=== PATIENT | female | born 1990 | race Caucasian/White ===

== ENCOUNTER 2023-08-02 16:34 | Emergency (ER) | payer OTHER, SELFPAY ==
[2023-08-02 16:52] VITALS: BP 148/114; PULSE 58; RESP 18; TEMP 37.1; O2SAT 99; BMI 24.3
--- NOTE | 2023-08-02 16:56 | ED.GENADUL1 ---
HPI - General Adult General Chief complaint: Headache Stated complaint: Low Heart Rate - advised to call 911 Time Seen by Provider: 08/02/23 16:52 Source: patient Mode of arrival: Wheelchair Limitations: no limitations History of Present Illness HPI narrative: 33 janet old female presents to the ED for a headache, neck spasms. Onset was this morning. States the sx are typical for her, but her home medication was not helping. Also states her HR dropped into the 30s today and her BP was elevated. Reports dizziness, palpitations today. Denies fever, chills, vision changes. Denies CP, SOB, N/V/D, back pain. She drove herself to the ED today. Denies chance of . Reports hx syncope. She follows with cardiology. Related Data Allergies Allergy/AdvReac Type Severity Reaction Status Date / Time metoclopramide [From Reglan] AdvReac Severe Anxiety Verified 08/02/23 16:52 Review of Systems ROS Constitutional Denies: fever, chills or fatigue Eyes Reports: light sensitivity; Denies: change in vision, blurry vision or eye discomfort Ears, nose, mouth, and throat Reports: neck pain; Denies: throat pain, ear pain, ear discharge, vertigo or nasal congestion Cardiovascular Reports: palpitations and lightheadedness; Denies: chest pain or edema Respiratory Denies: shortness of breath or cough Gastrointestinal Denies: abdominal pain, nausea, vomiting or diarrhea Genitourinary Denies: painful urination Musculoskeletal Reports: neck pain; Denies: back pain Integumentary/Breast Denies: rash or itching Neurological Reports: headache and dizziness; Denies: numbness in extremities, weakness in extremities, lack of coordination or vertigo PFSH PFSH Social History Smoking status: Current every day smoker Exam Constitutional Vital Signs, click to edit/add: Last Vital Signs Temp 98.7 F 08/02/23 16:52 Pulse 58 L 08/02/23 16:52 Resp 18 08/02/23 16:52 BP 148/114 H 08/02/23 16:52 Pulse Ox 99 08/02/23 16:52 O2 Del Method Room Air 08/02/23 16:52 Common normals: no apparent distress and oriented x3 General appearance: cooperative HENMT Common normals: normocephalic Nose: external nose normal Mouth: oral and palatal mucosa normal, lip normal and tongue normal Throat: posterior oropharynx normal and uvula midline Eye Common normals: PERRL, EOMs intact bilaterally, conjunctivae normal and no scleral icterus Neck & C-Spine Common normals: supple General: trachea midline Cervical spine: cervical ROM normal, paracervical muscle tenderness and paracervical muscle spasm; no cervical spine tenderness Chest Chest: symmetrical chest wall rise Respiratory Common normals: normal respiratory effort Effort & inspection: able to speak in complete sentences and symmetric chest movement Auscultation: clear to auscultation bilaterally Cardio Common normals: regular rhythm Rate: bradycardic Neuro Common normals: oriented x3 and CN's II-XII intact bilaterally Sensorium/orientation: awake and alert Speech: speech normal Gait (neuro): normal gait Motor exam: strength 5/5 throughout Course Vital Signs Vital signs: Vital Signs Temperature 98.7 F 08/02/23 16:52 Pulse Rate 58 L 08/02/23 16:52 Respiratory Rate 18 08/02/23 16:52 Blood Pressure 148/114 H 08/02/23 16:52 Pulse Oximetry 99 08/02/23 16:52 Oxygen Delivery Method Room Air 08/02/23 16:52 Temperature 98.7 F 08/02/23 16:52 Pulse Rate 58 L 08/02/23 16:52 Respiratory Rate 18 08/02/23 16:52 Blood Pressure 148/114 H 08/02/23 16:52 Pulse Oximetry 99 08/02/23 16:52 Oxygen Delivery Method Room Air 08/02/23 16:52 Medical Decision Making MDM Narrative Medical decision making narrative: The patient reported improvement in her symptoms prior to discharge. She reported her headache was gone. She was given IV fluids, Benadryl, Decadron, and Zofran. BP prior to discharge was 129/70, HR 55, O2 sat 100%. She has an appointment in the morning for a cardiac echo. She has a pcp and senior pharmacy technician for follow up. She was encouraged to follow up as directed. Medical Records Medical records reviewed: Yes I reviewed the patient's medical records Lab Data Lab results reviewed: Yes I reviewed the patient's lab results Labs: Lab Results 08/02/23 Range/Units 17:35 WBC 7.7 (4.0-11.0) 10^3/uL RBC 5.15 (4.20-5.40) 10^6/uL Hgb 14.9 (12.0-16.0) g/dL Hct 46.0 (36.0-48.0) % MCV 89.3 (81.0-99.0) fL MCH 28.9 (26.7-34.0) pg MCHC 32.4 (29.9-35.2) g/dL RDW 12.7 (11.0-15.0) % Plt Count 330 (150-450) 10^3/uL MPV 11.0 (9.5-13.5) fL Neut % (Auto) 62.8 (43.0-75.0) % Lymph % (Auto) 30.9 (20.5-60.0) % [place] % (Auto) 3.8 (1.7-12.0) % Eos % (Auto) 2.0 (0.9-7.0) % Baso % (Auto) 0.4 (0.2-2.0) % Neut # (Auto) 4.8 (1.4-6.5) 10^3/uL Lymph # (Auto) 2.4 (1.2-3.8) 10^3/uL [place] # (Auto) 0.3 (0.3-0.8) 10^3/uL Eos # (Auto) 0.2 (0.0-0.7) 10^3/uL Baso # (Auto) 0.0 (0.0-0.1) 10^3/uL Abs Immat Gran (auto) 0.01 (0.00-0.03) 10^3/uL Imm/Tot Granulo (auto) 0.1 (0.0-0.5) % Sodium 143 (136-145) mmol/L Potassium 3.8 (3.5-5.1) mmol/L Chloride 106 (98-107) mmol/L Carbon Dioxide 28.7 (21.0-32.0) mmol/L Anion Gap 12.1 BUN 10.0 (7.0-18.0) mg/dL Creatinine 0.78 (0.55-1.02) mg/dL Est GFR ( Amer) >60 (>=60) Est GFR (Non-Af Amer) >60 (>=60) BUN/Creatinine Ratio 12.8 Glucose 101 (74-106) mg/dL Calcium 9.6 (8.5-10.1) mg/dL Total Bilirubin 0.7 (0.2-1.0) mg/dL AST 12 L (15-37) U/L ALT 16 (14-59) U/L Alkaline Phosphatase 85 (46-116) U/L Total Creatine Kinase 45 (26-192) U/L Myoglobin 36 (9-82) ng/mL Total Protein 8.0 (6.4-8.2) g/dL Albumin 4.0 (3.4-5.0) g/dL Globulin 4.0 g/dL Albumin/Globulin Ratio 1.0 Imaging Data Chest x-ray: Attestation: I have reviewed the pertinent imaging results. Radiologist's impression: ITS Impressions Chest X-Ray 08/02/23 17:06 IMPRESSION: No plain film evidence for acute cardiopulmonary disease. Electronically authenticated by: RENEE GIL Date: 08/02/2023 17:44 ECG Data Attestation: ?I have reviewed the pertinent ECG results. Interpretation: Measurements Intervals [place] Rate: 52 P: 60 TX: 148 QRS: 67 QRSD: 86 T: 40 QT: 416 QTc: 396 Interpretive Statements 1100 Sinus rhythm 9110 normal ECG No previous ECG available for comparison Discharge Plan Discharge Chief Complaint: Headache Clinical Impression: Bradycardia, Headache Patient Disposition: Home, Self-Care Time of Disposition Decision: 20:18 Condition: Good Mode of Transportation: Private Vehicle Instructions: Acute Headache (ED), Bradycardia (ED) Stand Alone Forms: Portal Instructions Referrals: KAREN VILLRA [Physician] - 1 week Physician,Non-Staff, [Primary Care Provider] - 1 week Discharge Date/Time: 08/02/23 20:23
--- NOTE | 2023-08-02 17:06 | ECG_ITS ---
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
--- NOTE | 2023-08-02 17:06 | XR_ITS ---
The [address] [address] Patient Name: SABRINA ELIZABETH MRN: [id number] date: 1990 Sex: F Assigned Patient Location: ER Current Patient Location: ER Accession/Order Number: [id number] Exam Date: 08/02/2023 17:12 Report Date: 08/02/2023 17:44 At the request of: KENIA WILLS Procedure: XR chest 1V CXR HISTORY: Shortness of breath COMPARISON: None. TECHNIQUE: 1 view chest submitted for review. FINDINGS: The lungs are adequately expanded without evidence of acute infiltrate or effusion. The cardiac silhouette measures within normal. Pulmonary vascularity is unremarkable. Osseous structures do not demonstrate any acute abnormality. XR/XR chest 1V IMPRESSION: No plain film evidence for acute cardiopulmonary disease. Electronically authenticated by: RENEE GIL Date: 08/02/2023 17:44
[2023-08-02 17:44] LABS: Basophils Percent Auto 0.4 % (0.2-2.0); Eosinophils Absolute Auto 0.2 10^3/uL (0.0-0.7); Hemoglobin 14.9 g/dL (12.0-16.0); Immature Granulocytes Abs Auto 0.01 10^3/uL (0.00-0.03); Immature Granulocytes Pct Auto 0.1 % (0.0-0.5); Lymphocytes Absolute Auto 2.4 10^3/uL (1.2-3.8); Lymphocytes Percent Auto 30.9 % (20.5-60.0); Mean Corpuscular HGB Conc 32.4 g/dL (29.9-35.2); Mean Corpuscular Hemoglobin 28.9 pg (26.7-34.0); Mean Corpuscular Volume 89.3 fL (81.0-99.0); Monocytes Absolute Auto 0.3 10^3/uL (0.3-0.8); Monocytes Percent Auto 3.8 % (1.7-12.0); Neutrophils Absolute Auto 4.8 10^3/uL (1.4-6.5); Neutrophils Percent Auto 62.8 % (43.0-75.0); Platelet Count 330 10^3/uL (150-450); Red Blood Count 5.15 10^6/uL (4.20-5.40); Red Cell Distribution Width 12.7 % (11.0-15.0); White Blood Count 7.7 10^3/uL (4.0-11.0)
[2023-08-02 17:59] LABS: Alanine Aminotransferase 16 U/L (14-59); Alkaline Phosphatase 85 U/L (46-116); Anion Gap 12.1; Aspartate Amino Transferase 12 U/L (15-37); BUN Creatinine Ratio 12.8; Bilirubin Total 0.7 mg/dL (0.2-1.0); Calcium 9.6 mg/dL (8.5-10.1); Carbon Dioxide 28.7 mmol/L (21.0-32.0); Chloride 106 mmol/L (98-107); Estimated GFR (African America >60 (>=60); Estimated GFR (Non-African Ame >60 (>=60); Glucose 101 mg/dL (74-106); Potassium 3.8 mmol/L (3.5-5.1); Sodium 143 mmol/L (136-145)
[2023-08-02 18:11] LABS: Creatine Kinase 45 U/L (26-192); Myoglobin 36 ng/mL (9-82)
[2023-08-02] MEDS: 0.9 % SODIUM CHLORIDE 1,000 ML 999 ML IV (18:48)
[2023-08-02] MEDS: ONDANSETRON PF 4 MG/2 ML VIAL IV (18:49)
[2023-08-02] MEDS: DIPHENHYDRAMINE HCL 50 MG/ML (1ML) VIAL 25 MG IV (18:49)
[2023-08-02] MEDS: DEXAMETHASONE SOD PHOS 10 MG/ML VIAL IV (18:49)
[2023-08-02] MEDS: ORPHENADRINE 60 MG/ 2 ML VIAL IV (18:50)
== END 2023-08-02 20:23 | disposition home or self-care (01) ==
PROVIDERS: Nurse Practitioner Family; Emergency Provider Emergency Medicine
DX: R00.1 Bradycardia, unspecified (principal); R51.9 Headache, unspecified; F17.200 Nicotine dependence, unspecified, uncomplicated
CPT/HCPCS: 36415; 71045; 80053; 82550; 83874; 85025; 93005; 96361; 96374; 96375; 99285; J1100; J1200; J2360; J2405

== ENCOUNTER 2023-12-12 19:42 | Emergency (ER) | payer OTHER, SELFPAY ==
[2023-12-12 19:47] VITALS: BP 136/105; PULSE 85; TEMP 37.2; O2SAT 98; BMI 25.1
--- OUTSIDE RECORDS SUMMARY | 2023-12-12 19:56 | XMS_ITS | CCD ---
Author Organization [facility] Care Team Providers Care Chip Bin Conveyor Tender Name Role Phone PRISCILA XIE Admitting Unavailab le SYSTEM, PROVIDER NOT IN Referring Unavaila WOODY Benitez Primary Care Unavailabl e Horava, Harish A. Primary Care Provider [phone] Unavailable Primary Care Provider Unavailabl e Horava DO, Harish A. Primary Care Provider Unavailable Primary Care Provider Unavailabl e Horava DO, Harish A. Primary Care Provider Horava DO, Harish A. Primary Care Provider Unavailable Primary Care Provider Unavailabl e Horava DO, Harish A. Primary Care Provider Alex PSA, Yuridia Unavailable Unavailable Unavailable Primary Care Provider Unavailabl e Unavailable Primary Care Provider UnavailAlessandra Espinosa DO Primary Care Pro vider Horava, Harish A Unavailable Alessandra Romero DO Primary Care Provider DL PONCE Attending Unavailable DL PONCE Referring Unavailable ALESSANDRA ROMERO??Jesica Primary Care Unavaila Mark Osorio Primary Care Provider MARK POE Primary Care Unavailable MARK POE Primary Care Unavailable MARK POE Primary Care Unavailable KASHMIR BELTRAN JR. Attending Unavailable ELSI LUCAS Referring Unavailable ALESSANDRA ROMERO Primary Care Kimberly vailable CISCO GARCIA Attending Unavailable MARK POE Referring Unavailable ALESSANDRA ROMERO Primary Care Kimberly vailable SOPHIE YOUNGER Attending Unavailable Kavita Gama Primary Care Provider REJI BAKER Attending Unavailable POE, MARK Primary Care Unavailable POE, MARK Referring Unavailable POE, MARK Primary Care Unavailable POE, MARK Attending Unavailable CRUZ-AGUILAR, TEX Attending Unavailable CRUZ-AGUILAR, TEX Referring Unavailable POE, MARK Primary Care Unavailable CRUZ-AGUILAR, TEX Attending Unavailable CRUZ-AGUILAR, TEX Referring Unavailable POE, MARK Primary Care Unavailable CRUZ-AGUILAR, TEX Attending Unavailable CRUZ-AGUILAR, TEX Referring Unavailable POE, MARK Primary Care Unavailable LanetteKavita salomon APRN, CNP Primary Care Provid er HORAVA, HARISH A. Primary Care Unavailable PRISCILA CARRANZA Attending Unavailable HORAVA, HARISH A. Primary Care Unavailable HORAVA, HARISH A. Primary Care Unavailable OSMANHUMBLEA MARINA Attending Un available OSMAN, NOLBERTO BOLLAMPALLY Referring Un available HORAVA, HARISH A. Primary Care Unavailable NILESH LYNN Attending Unavaila ble HORAVA, HARISH A. Primary Care Unavailable XUAN CUADRA Attending Unavailab IRENE Ivy Admitting Unavailab JEISON Manning Consulting Unavailabl e HORAVA, HARISH A. Referring Unavailable HORAVA, HARISH A. Primary Care Unavailable ADELA ASENCIO Attending Unavail able HORAVA, HARISH A. Primary Care Unavailable KRISTINE GALAN Attending Unavailabl e HORAVA, HARISH A. Primary Care Unavailable HUMBLE PEREZA MARINA Attending Un available OSMAN, NOLBERTO BOLLAMPALLY Referring Un available Lanette Kavita RAMIREZ CNP Primary Care Provid er Shira Preciado PA-C Attending Unavai lable LanetteKavita العراقي Referring Unava lynnette Bazan MD, Jameson Edwards Attending Unavailable NO, PHYSICIAN Primary Care Unavailable RAMESH CORTEZ Attending Unavailable RAMESH CORTEZ Referring Unavailable Horava DO, Harish A Unavailable Kavita Carpenter APRN, CNP Primary Care Provid er Kavita Gama APRN.CNP Primary Care Provider Jya Phillips MD Unavailable NO, PHYSICIAN Primary Care Unavailable HARISH GARZA Attending Unavailable [facility] Primary Care Kimberly vailable HARISH GARZA Attending Unavailable MEET BAIRES Attending Un[facility] Kimberly vailable HARISH GARZA Attending Unavailable [facility] Primary Care Kimberly vailable MARK POE Attending Unavailable [facility] Primary Care Kimberly vailable SHAYY, ELSI ABDUL Attending Unavailable SHAYY, ELSI ABDUL Attending Unavailable [facility] Primary Care Kimberly vailable SHAYY, ELSI ABDUL Attending Unavailable [facility] Primary Care Kimberly vailable Krizman DO, Noa Primary Care Provider [phone] Phu BEAUCHAMP, Bruno Unavailable Unavailable DAMIEN LANDON Attending Unavailable LANETTE, KAVITA Nikki Primary Care Unavailable SAROJ THORNTON Admitting Unavailable MOISES, MAIDANA Attending Unavailable NOA GAUTHIER Primary Care Unavailable Phu BEAUCHAMP, Bruno Unavailable Unavailable Krizvincent CHAMBERLAIN Noa Primary Care Provider JAJA TRUONG Attending UnavailJAJA Ovalles Referring Unavailabl e LANETTE, KAVITA L Primary Care Unavailable QUINTON MCKEON Referring Unavailable MOHINDER GARCIA Referring Unavailable LANETTE, KAVITA L Primary Care Unavailable KRISTINA JACOBS Referring Unavailable LANETTE, KAVITA L Primary Care Unavailable JAJA TRUONG Attending UnavailJAJA Ovalles Referring Unavailabl e LANETTE, KAVITA L Primary Care Unavailable JAUN OSORIO, MICHELLE F Admitting Unavail able JAUN OSORIO, MICHELLE F Attending Unavail able JAUN OSORIO, MICHELLE F Referring Unavail able LANETTE, KAVITA L Primary Care Unavailable MILLIE MACK Referring Unavailable LANETTE, KAVITA L Primary Care Unavailable LANETTE, KAVITA L Primary Care Unavailable RUBIN VERDE Referring Unavailable LANETTE, KAVITA L Primary Care Unavailable RUBIN VERDE Attending Unavailable FAROOQ MCGRAW Referring Unavailable NOA GAUTHIER Primary Care Unavailable LANETTE, KAVITA L Primary Care Unavailable RUBIN VERDE Attending Unavailable NOA GAUTHIER Attending Unavailable KRIZMAN, NOA Primary Care Unavailable FAROOQ MCGRAW Attending Unavailable KRIZMAN, NOA Primary Care Unavailable KELVIN PRATT Attending Unavailable KRIZMAN, NOA Primary Care Unavailable KRIZMAN, NOA Attending Unavailable KRIZMAN, NOA Primary Care Unavailable LANETTE, KAVITA L Primary Care Unavailable AMMON, RUBIN Referring Unavailable LANETTE, KAVITA L Primary Care Unavailable AMMON, RUBIN Referring Unavailable LANETTE, KAVITA L Primary Care Unavailable AMMON, RUBIN Referring Unavailable KRIZMAN, NOA Primary Care Unavailable AMMON, RUBIN Referring Unavailable CARRIE LEA Attending Unavailable KRIZMAN, NOA Primary Care Unavailable KRIZMAN, NOA Primary Care Unavailable KRIZMAN, NOA Primary Care Unavailable MARIE STEVENS Attending Unavailable KRIZMAN, NOA Primary Care Unavailable BARBARA RUBIO Attending Unavailab le KRIZMAN, NOA Primary Care Unavailable LANETTE, KAVITA L Primary Care Unavailable AMMON, RUBIN Attending Unavailable LANETTE, KAVITA L Primary Care Unavailable KAREL LOPEZ Attending Unavailable LANETTE, KAVITA L Primary Care Unavailable AMMON, RUBIN Referring Unavailable LANETTE, KAVITA L Primary Care Unavailable AMMON, RUBIN Referring Unavailable AMMON, RUBIN Attending Unavailable MEGAN KERN Attending Unavailable LANETTE, KAVITA L Primary Care Unavailable SPANOS, KELVIN Referring Unavailable KRIZMAN, NOA Primary Care Unavailable LANETTE, KAVITA L Primary Care Unavailable AMMON, RUBIN Referring Unavailable LANETTE, KAVITA L Primary Care Unavailable JYA PHILLIPS Attending Unavailable RUBIN VERDE Referring Unavailable MEGAN KERN Attending Unavailable MEGAN KERN Referring Unavailable LANETTE, KAVITA L Primary Care Unavailable KELVIN SHELTON Attending Unavailable KELVIN SHELTON P Referring Unavailable LANETTE, KAVITA L Primary Care Unavailable CATKELVIN FISCHER Referring Unavailable LANETTE, KAVITA L Primary Care Unavailable KRIZMAN, NOA Primary Care Unavailable AMMON, RUBIN Referring Unavailable SPANKELVIN TIRADO Referring Unavailable AMMON, RUBIN Attending Unavailable JINAMAN, NOA Primary Care Unavailable LANETTE, KAVITA L Primary Care Unavailable AMMON, RUBIN Attending Unavailable AMMONRUBIN Davison Referring Unavailable LANETTE, KAVITA L Primary Care Unavailable ANIKA AUGUSTE Attending Unavailable RUBIN VERDE Referring Unavailable LANETTE, KAVITA L Primary Care Unavailable AMMONRUBIN Davison Referring Unavailable KELVIN SHELTON Attending Unavailable JAY PHILLIPS Referring Unavailable KRIZMAN, NOA Primary Care Unavailable CAT, KELVIN P Referring Unavailable KRIZMAN, NOA Primary Care Unavailable JOO ALCANTAR Referring Unavailable KRIZMAN, NOA Primary Care Unavailable KRJUANJOMAN, NOA Attending Unavailable MEGAN KERN Attending Unavailable MEGAN KERN Referring Unavailable KRIZMAN, NOA Primary Care Unavailable PEGGY GILMORE Attending Unavailable RUBIN VERDE Referring Unavailable KRIZMAN, NOA Primary Care Unavailable KELVIN SHELTON Attending Unavailable KRIZMAN, NOA Primary Care Unavailable LANETTE KAVITA Nikki Primary Care Unavailable KRIZMAN, NOA Attending Unavailable ISSA HENRIQUEZ Attending Unavailable KRIZMAN, NOA Primary Care Unavailable RUBIN VERDE Attending Unavailable KRIZMAN, NOA Primary Care Unavailable LANETTE, KAVITA Nikki Primary Care Unavailable MEGAN KERN Attending Unavailable LANETTE, KAVITA L Primary Care Unavailable LANETTE, KAVITA L Primary Care Unavailable RUBIN VERDE Referring Unavailable Allergies Allergy Classification Reported Allergen(s) Allergy Type Date of Onset Reaction(s) Facility DOPamine Antagonists (3 sources) Metoclopramide Drug Allergy 2 Shortness of Breath, Other: See Comments [facility] Mold Extract (3 sources) Mold Extract Drug Allergy 3 [facility] (20 sources) Metoclopramide; Translations: [METOCLOPRAMIDE HCL] Drug Allergy 2 Anxiety, Palpitations, Shortness Of Breath [facility] (20 sources) Metoclopramide; Translations: [METOCLOPRAMIDE] Drug Allergy 2 Shortness of Breath, Other: See Comments, Anxiety, Other, Palpitations, Dyspnea [facility] (20 sources) Mold Extract; Translations: [MOLD] Drug Allergy 3 [facility] (1 source) Metoclopramide; Translations: [Reglan] Drug Allergy [facility] Repository Medications Current Medications Medication Drug Class(es) Dates Sig (Normalized) Sig (Original) acetaminophen 325 mg / butalbital 50 mg / caffeine 40 mg oral tablet (2 sources) Barbiturate, Central Nervous System Stimulant, Methylxanthine Start: 02-15-2022 take 1 tablet by mouth every four hours as needed for headache butalbital-acetam inophen-caffeine 50-325-40 MG per tablet Indications: Migraine without status migrainosus, not intractable, unspecified migraine type Take 1 tablet by mouth every 4 hours as needed for Headaches. 12 tablet 0 02/15/2022 Active ALPRAZolam 0.5 mg oral tablet (20 sources) Benzodiazepine Start: 09-22-2023 End: 10-22-2023 take 0.5 tablet by mouth twice daily as needed for anxiety ALPRAZolam (XANAX) 0.5 mg tablet Indications: Generalized anxiety disorder , PTSD (post-traumatic stress disorder) Take 0.5 tablets by mouth two times a day as needed for anxiety for up to 30 days. 30 tablet 0 09/22/2023 10/22/2023 Active Start: 07-20-2023 End: 08-19-2023 take 2 tablets by mouth twice daily as needed ALPRAZolam (XANAX) 0.5 MG tablet Indications: Anxiety Take 1 tablet by mouth 2 times daily as needed for Anxiety for up to 30 days. Max Daily Amount: 1 mg 60 tablet 0 07/20/2023 08/19/2023 Active Start: 06-13-2023 End: 08-31-2023 take 1 tablet by mouth twice daily ALPRAZolam (XANAX) 0.5 mg tablet Indications: Transient autonomic symptoms Take 1 tablet by mouth two times a day for 30 days. 60 tablet 0 08/01/2023 08/31/2023 Active Start: 06-13-2023 End: 07-13-2023 take 2 tablets by mouth twice daily as needed ALPRAZolam (XANAX) 0.5 MG tablet Indications: Anxiety Take 1 tablet by mouth 2 times daily as needed for Anxiety for up to 30 days. Max Daily Amount: 1 mg 60 tablet 0 06/13/2023 07/13/2023 Active Start: 02-07-2023 End: 04-08-2023 ALPRAZolam (XANAX) 0.5 mg ta blet Take 0.5 mg by mouth. 0 02/07/2023 04/08/2023 Active Start: 12-07-2022 End: 01-06-2023 ALPRAZolam (XANAX) 0.5 mg ta blet Take 0.5 mg by mouth as needed. 0 12/07/2022 01/06/2023 Active Start: 10-17-2022 End: 11-16-2022 ALPRAZolam (XANAX) 0.5 mg ta blet Take 0.5 mg by mouth. 0 10/17/2022 11/16/2022 Active Start: 10-17-2022 End: 11-16-2022 take 2 tablets by mouth twice daily as needed ALPRAZolam (XANAX) 0.5 MG tablet Indications: Anxiety attack Take 1 tablet by mouth 2 times daily as needed for Sleep or Anxiety for up to 30 days. Max Daily Amount: 1 mg 30 tablet 0 10/17/2022 11/16/2022 Active End: 09-22-2023 take 0.25 mg by mouth every twelve hours as needed ALPRAZolam (XANAX) 0.5 mg tablet Take 0.25 mg by mouth two times a day as needed for anxiety. 0 09/22/2023 Discontinued Comment on above: Take 0.5 mg by mouth . Take 0.5 mg by mouth as needed. [facility]. Take 0.25 mg by mout two times a day as needed for anxiety. Take 0.5 tablets by mouth two times a day as needed for anxiety for up to 30 days. bisacodyl 5 mg delayed release oral tablet (20 sources) Stimulant Laxative Start: 07-25-2023 take 4 tablets by mouth once bisacodyl EC (DULCOLAX) 5 mg EC tablet TAKE 4 TABLETS BY MOUTH DIRECTED per colonoscopy instructions 0 07/25/2023 Active Start: 02-27-2022 End: 02-28-2022 take 10 mg rectal route once daily as needed for constipation 10 mg, Rectal, Daily PRN, constipation, Starting on 02/27/22 at 1735 Comment on above: TAKE 4 TABLETS BY MO [facility] DIRECTED per colonoscopy instructions 24 hr buPROPion hydrochloride 300 mg extended release oral tablet (1 source) Aminoketone Start: 01-21-20 21 take 1 tablet by mouth once daily in the morning buPROPion (WELLBUTRIN XL) 300 MG extended release tablet Indications: depression Take 1 tablet by mouth every morning 30 tablet 5 01/20/2021 Active chlorzoxazone 500 mg oral tablet (2 sources) Muscle Relaxant Start: 09-09-19 23 End: 09-14-19 23 take 1 tablet by mouth four times daily chlorzoxazone (PARAFON FORTE DSC) 500 mg tablet Indications: Chronic migraine without aura, intractable, without status migrainosus , Migraine with aura and without status migrainosus, not intractable Take 1 tablet by mouth four times daily for 5 days. Do not take any other muscle relaxers while taking this medication. This may make you drowsy so I caution driving while taking this. 20 tablet 0 09/08/2022 09/13/2022 Active Comment on above: Take 1 tablet by [facility] th four times daily for 5 days. Do not take any other muscle relaxers while taking this medication. This may make you drowsy so I caution driving while taking this. colchicine 0.6 mg oral tablet (20 sources) Start: 10-24-19 take 1 tablet by mouth twice daily colchicine 0.6 mg tablet Indications: Recurrent aphthous stomatitis Take 1 tablet by mouth two times a day. 180 tablet 0 10/24/2023 Active Start: 10-20-2023 take 1 tablet by [facility] once daily colchicine 0.6 mg tablet Indications: Recurrent aphthous stomatitis Take 1 tablet by mouth once daily. 30 tablet 1 10/20/2023 Active Start: 10-03-2022 End: 07-26-2023 take 1 tablet by mouth once daily colchicine 0.6 mg tablet Indications: Recurrent aphthous stomatitis Take 1 tablet by mouth once daily. 30 tablet 1 10/03/2022 07/26/2023 Discontinued (Discontinued by another Health Care Provider) Start: 09-16-2022 End: 09-30-2022 take 1 tablet by mouth once daily colchicine 0.6 mg tablet Indications: Recurrent aphthous stomatitis Take 1 tablet by mouth once daily. 30 tablet 1 09/16/2022 09/30/2022 Discontinued Comment on above: Take 1 tablet by [facility] once daily. cyclobenzaprine hydrochloride 10 mg oral tablet (20 sources) Muscle Relaxant Start: 12-04-19 End: 02-02-20 take 1 tablet by mouth every eight hours as needed cyclobenzaprine (FLEXERIL) 10 mg tablet Take 1 tablet by mouth three times a day as needed. Do not take with baclofen or robaxin. 90 tablet 1 12/04/2023 02/02/2024 Active Start: 09-29-2023 End: 10-29-2023 take 1 tablet by mouth every eight hours as needed cyclobenzaprine (FLEXERIL) 10 mg tablet Take 1 tablet by mouth three times a day as needed. Do not take with baclofen or robaxin. 90 tablet 0 09/29/2023 10/29/2023 Start: 01-17-2023 End: 07-26-2023 take 1 tablet by mouth every eight hours as needed cyclobenzaprine (FLEXERIL) 10 mg tablet Take 10 mg by mouth three times daily as needed. 0 01/17/2023 07/26/2023 Discontinued (Discontinued by Patient) take 1 tablet by [facility] three times daily as needed for muscle spasms cyclobenzaprine (FLEXERIL) 5 MG tablet Take 1 tablet by mouth 3 times daily as needed for Muscle spasms 0 Active Comment on above: Take 10 mg by mouth three times daily as needed. Take 1 tablet by [facility] th three times a day as needed. Do not take with baclofen or robaxin. diclofenac potassium 50 mg oral tablet (20 sources) Nonsteroidal Anti-inflammatory Drug Start: 06-22-2022 End: 09-21-2023 diclofenac potassium (CATAFLAM) 50 mg tablet 1 tab at onset of headache. May take every 8 hours as needed for pain. Take with food, and no more than 10 days per month. 20 tablet 5 09/22/2023 Active take 1 tablet by [facility] th twice daily at mealtime diclofenac sodium (VOLTAREN) 50 MG EC tablet Take 1 (one) tablet (50 mg total) by mouth 2 (two) times a day with meals . 0 Active Comment on above: 1 tab at onset of he adache. May take every 8 hours as needed for pain. Take with food, and no more than 10 days per month. docusate sodium 50 mg / sennosides, [facility] 8.6 mg oral tablet (20 sources) Start: take 1 tablet by mouth twice daily senna-docusate (SENNA-S) 8.6-50 mg per tablet Take 1 tablet by mouth two times a day. 0 08/07/2023 Active Comment on above: Take 1 tablet by [facility] th two times a day. DULoxetine 30 mg delayed release oral capsule (20 sources) Serotonin and Norepinephrine Reuptake Inhibitor Start: DULoxetine (CYMBALTA) 30 MG extended release capsule 2 capsules 0 11/09/2022 Active Start: 11-09-2022 DULoxetine (CY MBALTA) 30 MG extended release capsule Start: 07-10-2022 take 1 capsule by mo [facility] once daily DULoxetine (CYMBALTA) 60 MG extended release capsule Take 1 capsule by mouth daily 0 07/10/2022 Active Start: 05-02-2022 End: 07-08-2022 take 1 capsule by mouth once daily DULoxetine (CYMBALTA) 60 MG capsule Indications: Fatigue, unspecified type , Paresthesias Take 1 (one) capsule (60 mg total) by mouth daily . 30 capsule 2 05/02/2022 07/08/2022 Discontinued (Reorder (Suppress CancelRx Message to Pharmacy)) Start: 05-02-2022 End: 05-02-2022 take 2 capsules by mouth once daily DULoxetine (CYMBALTA) 30 MG capsule Indications: Fatigue, unspecified type , Paresthesias Take 2 (two) capsules (60 mg total) by mouth daily . 30 capsule 2 05/02/2022 05/02/2022 Discontinued Start: 03-30-2022 End: 05-02-2022 take 1 capsule by mouth once daily DULoxetine (CYMBALTA) 30 MG capsule Indications: Fatigue, unspecified type , Paresthesias Take 1 (one) capsule (30 mg total) by mouth daily . 30 capsule 1 03/30/2022 05/02/2022 Discontinued (Reorder (Suppress CancelRx Message to Pharmacy)) Comment on above: once daily. Take 60 mg by mouth once daily. ergocalciferol, vitamin D2, (VITAMIN D2 ORAL) (20 sources) ergocalciferol, vitamin D2, (VITAMIN D2 ORAL) Take by mouth one time a week. 0 Active ergocalciferol, vitamin D2, (VITAMIN D2 ORAL) Take by mouth. 0 Suspended ergocalciferol, vitamin D2, (VITAMIN D2 ORAL) Take by mouth. 0 Active Comment on above: Take by mouth. 21 day ethinyl estradiol 0.072358 mg/hr / etonogestrel 0.005 mg/hr vaginal ring (7 sources) Progestin, Estrogen Start: 6 etonogestrel-ethi nyl estradiol (NUVARING) 0.12-0.015 MG/24HR vaginal ring Indications: Irregular periods Place 1 each vaginally every 21 days Insert one (1) ring vaginally and leave in place for three (3) weeks, then remove for one (1) week. 1 each 12 03/14/2016 Active Ethinyl Estradiol / Levonorgestrel (11 sources) Progestin, Estrogen, Progestin-containing Intrauterine Device Start: take 1 tablet by mouth once daily levonorgestrel-et hinyl estradiol (LYBREL) 90-20 mcg (28) per tablet Take 1 tablet by mouth daily. 0 07/12/2022 Active Start: 07-12-2022 take 1 tablet by [facility] once daily levonorgestrel-ethinyl estradiol (LYBREL ) 90-20 mcg (28) per tablet Take 1 (one) tablet by mouth daily . 0 07/12/2022 Active Start: 07-12-2022 take 1 tablet by [facility] once daily levonorgestrel-ethinyl estradiol (LYBREL ) 90-20 MCG per tablet Indications: Adenomyosis Take 1 tablet by mouth daily 1 packet 3 07/12/2022 Active ethinyl estradiol 0.035 mg / norgestimate 0.25 mg oral tablet (1 source) Progestin, Estrogen Start: 06-07-2022 take 1 tablet by mouth once daily GABO 0.25-35 MG-MCG per tablet Indications: DUB (dysfunctional uterine bleeding) TAKE 1 TABLET BY MOUTH EVERY DAY 84 tablet 1 06/07/2022 Active ferrous sulfate 325 mg oral tablet (20 sources) Start: 07-21-2023 take 1 tablet by mouth once daily at breakfast FEROSUL 325 mg (65 mg iron) tablet Take 1 tablet by mouth daily with breakfast. 0 07/21/2023 Active Comment on above: Take 1 tablet by [facility] th daily with breakfast. gabapentin 600 mg oral tablet (20 sources) Anti-epileptic Agent Start: 10-17-2023 End: 10-16-2024 take 1 tablet by mouth three times daily gabapentin (NEURONTIN) 600 mg tablet Indications: Chronic migraine without aura, intractable, without status migrainosus Take 1 tablet by mouth three times a day. 270 tablet 3 10/17/2023 10/16/2024 Active Start: 07-04-2023 End: 12-31-2023 take 1 tablet by mouth twice daily gabapentin (NEURONTIN) 600 mg tablet Indications: Chronic migraine without aura, intractable, without status migrainosus Take 1 tablet by mouth two times a day for 180 days. 180 tablet 1 07/04/2023 10/17/2023 Discontinued Start: 06-02-2023 End: 07-02-2023 take 1 capsule by mouth at bedtime gabapentin (NEURONTIN) 300 MG capsule Indications: Intractable migraine with aura without status migrainosus , Fibromyalgia, primary Take 1 capsule by mouth in the morning and at bedtime for 30 days. 60 capsule 0 06/02/2023 Active Start: 10-10-2022 End: 04-17-2023 take 1 capsule by mouth once daily in the morning, then take 2 capsules by mouth once daily at bedtime gabapentin (NEURONTIN) 300 mg capsule Take 1 capsule by mouth every morning AND 2 capsules daily at bedtime. Do all this for 180 days. 90 capsule 5 10/19/2022 Active Start: 09-05-2022 End: 10-19-2022 gabapentin (NEURONTIN) 100 m g capsule 300 mg. 0 09/05/2022 10/19/2022 Discontinued (Changing Therapy/Dosage Form) Start: 09-05-2022 gabapentin (Ne urontin) 100 MG capsule Indications: Other chronic pain Take 1 capsule by mouth daily at bedtime for 7 days, then increase to 1 capsule twice daily for 7 days, then increase to 1 capsule 3 times daily. Can take all 3 pills at night if cannot tolerate daytime . 90 capsule 1 09/05/2022 Active Comment on above: 300 mg. Take 1 capsule by mo [facility] every morning AND 2 capsules daily at bedtime. Do all this for 180 days. Take 1 tablet by [facility] two times a day for 180 days. hydrocortisone 10 mg oral tablet (2 sources) Corticosteroid Start: End: take 1 tablet by mouth once daily hydrocortisone (CORTEF) 10 mg tablet Take 1 tablet by mouth once daily. 90 tablet 0 12/12/2023 03/11/2024 Active ibuprofen 800 mg oral tablet (1 source) Nonsteroidal Anti-inflammatory Drug Start: take 1 tablet by mouth every eight hours ibuprofen (ADVIL;MOTRIN) 800 MG tablet Take 1 tablet by mouth every 8 hours 120 tablet 3 11/27/2020 Active iv contrast (will be provided with radiology test) (1 source) Start: 023 End: 023 iv contrast (will be provided with radiology test) MRI LSP Inject, intravenously, once for 1 dose. No IV access, insert saline lock prior to the beginning of sedation, infusion, injection of imaging exam. Discontinue saline lock post exam. If Pt. has a central line or IVAD, may access for administration according to line specific nursing protocol. Once exam is complete flush line and de-access according to line specific nursing protocol in the MR contrast administration guidelines link. 1 Each 0 07/01/2022 07/02/2022 Active Comment on above: MRI LSP Inject, intr avenously, once for 1 dose. No IV access, insert saline lock prior to the beginning of sedation, infusion, injection of imaging exam. Discontinue saline lock post exam. If Pt. has a central line or IVAD, may access for administration according to line specific nursing protocol. Once exam is complete flush line and de-access according to line specific nursing protocol in the MR contrast administration guidelines link. ammonium lactate 120 mg/ml topical cream (12 sources) Start: 024 ammonium lactate (LAC-HYDRIN) 12 % cream Indications: Dry skin dermatitis Apply to affected area as needed. 140 g 1 10/30/2023 Active lanolin 1000 mg/ml topical cream (1 source) Start: 021 lansinoh lanolin CREA ointment Apply 1 applicator topically as needed for Dry Skin (nipple discomfort) 1 Tube 2 11/27/2020 Active Magnesium (15 sources) End: 023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 urinary system] Onset: 4 10-24-2023 Episodic Glaucoma (2 sources) Preglaucoma, unspecified, bilateral; Translations: [Preglaucoma, unspecified, bilateral] Onset: 3 Chronic Headache; including migraine (20 sources) Migraine with aura; Translations: [Migraine with aura, not intractable, without status migrainosus] Onset: 2 Chronic Headache; including migraine (2 sources) Headache; including migraine; Translations: [Headache, unspecified] Onset: 2 Inflammatory diseases of female pelvic organs (1 source) Acute vaginitis; Translations: [Acute vaginitis] Onset: 4 Episodic Malaise and fatigue (1 source) Fatigue; Translations: [Chronic fatigue, unspecified] 09-07-2022 Chronic Menstrual disorders (2 sources) Amenorrhea; Translations: [Amenorrhea] Chronic Miscellaneous mental health disorders (20 sources) Chronic insomnia; Translations: [Psychophysiologic insomnia] Onset: 3 Chronic Mood disorders (1 source) Recurrent major depression; Translations: [Major depressive disorder, recurrent, unspecified] Chronic Nausea and vomiting (3 sources) Nausea and vomiting; Translations: [Nausea with vomiting, unspecified] Episodic Neoplasms of unspecified nature or uncertain behavior (2 sources) Neoplasm of uncertain behavior of skin; Translations: [Neoplasm of uncertain behavior of skin] Onset: 3 Episodic Nutritional deficiencies (20 sources) Malnutrition (calorie); Translations: [Moderate protein-calorie malnutrition] Onset: 4 08-07-2023 Chronic Nutritional deficiencies (15 sources) Decreased vitamin B12 level; Translations: [Deficiency of other specified B group vitamins] Onset: 3 Episodic Other acquired deformities (20 sources) Scoliosis of lumbar spine; Translations: [Scoliosis, unspecified] Onset: 3 Chronic Other circulatory disease (2 sources) Postural orthostatic tachycardia syndrome ; Translations: [Postural orthostatic tachycardia syndrome (POTS)] Onset: 3 Episodic Other circulatory disease (2 sources) Low blood pressure; Translations: [Hypotension, unspecified] 08-03-2023 Episodic Other circulatory disease (6 sources) Labile blood pressure; Translations: [Other specified symptoms and signs involving the circulatory and respiratory systems] 08-03-2023 Episodic Other complications of (19 sources) Asthma in ; Translations: [Diseases of the respiratory system complicating , unspecified trimester] 09-08-2020 Episodic Other complications of (1 source) History of loop electrosurgical excision procedure; Translations: [Maternal care for other abnormalities of cervix, unspecified trimester] Onset: 1 09-08-2020 Episodic Other complications of (8 sources) Anxiety in ; Translations: [Anxiety in , antepartum] Onset: 1 09-08-2020 Other complications of (8 sources) Asthma in ; Translations: [Asthma affecting , antepartum] 09-08-2020 Other connective tissue disease (2 sources) Cramp; Translations: [Cramp and spasm] Episodic Other connective tissue disease (4 sources) Behcet's syndrome; Translations: [Behcet's disease] Onset: 3 Episodic Other connective tissue disease (3 sources) Disorder of autonomic nervous system; Translations: [Other symptoms and signs involving the nervous system] Onset: 3 02-02-2023 Episodic Other diseases of bladder and urethra (1 source) Neurogenic bladder; Translations: [Neuromuscular dysfunction of bladder, unspecified] 10-09-2023 Chronic Other diseases of bladder and urethra (1 source) Neuromuscular dysfunction of bladder, unspecified; Translations: [Neuromuscular dysfunction of bladder, unspecified] Onset: 3 Chronic Other disorders of stomach and duodenum (1 source) Cyclical vomiting syndrome; Translations: [Cyclical vomiting syndrome unrelated to migraine] Episodic Other disorders of stomach and duodenum (2 sources) Gastroparesis syndrome; Translations: [Gastroparesis] Episodic Other disorders of stomach and duodenum (1 source) Gastroparesis; Translations: [Gastroparesis] Onset: 3 Episodic Other ear and sense organ disorders (1 source) Bilateral tinnitus; Translations: [Tinnitus, bilateral] Episodic Other eye disorders (2 sources) Glaucomatous optic atrophy, bilateral; Translations: [Glaucomatous optic atrophy, bilateral] Onset: 3 Chronic Other female genital disorders (2 sources) Vaginal discharge; Translations: [Vaginal discharge during in first trimester] Episodic Other female genital disorders (2 sources) Unspecified condition associated with female genital organs and menstrual cycle; Translations: [Unspecified condition associated with female genital organs and menstrual cycle] Onset: 3 Episodic Other female genital disorders (2 sources) Disorder of female genital organs; Translations: [Unspecified condition associated with female genital organs and menstrual cycle] Episodic Other gastrointestinal disorders (1 source) Intolerance to food; Translations: [Malabsorption due to intolerance, not elsewhere classified] Chronic Other gastrointestinal disorders (1 source) Smearing feces; Translations: [Fecal smearing] Episodic Other gastrointestinal disorders (2 sources) Constipation; Translations: [Other constipation] Episodic Other gastrointestinal disorders (1 source) Alteration in bowel elimination; Translations: [Change in bowel habit] Episodic Other gastrointestinal disorders (1 source) Other constipation; Translations: [Other constipation] Onset: 3 Episodic Other gastrointestinal disorders (1 source) Change in bowel habit; Translations: [Change in bowel habit] Onset: 3 Episodic Other gastrointestinal disorders (2 sources) Constipation, unspecified; Translations: [Constipation, unspecified] Onset: 3 Episodic Other gastrointestinal disorders (2 sources) Dysphagia; Translations: [Dysphagia, unspecified] Episodic Other hereditary and degenerative nervous system conditions (1 source) Essential tremor; Translations: [Essential tremor] Chronic Other hereditary and degenerative nervous system conditions (2 sources) Restless legs; Translations: [Restless legs syndrome] Chronic Other hereditary and degenerative nervous system conditions (1 source) Intention tremor; Translations: [Other specified forms of tremor] Chronic Other hereditary and degenerative nervous system conditions (1 source) Blepharospasm; Translations: [Blepharospasm] 09-29-2023 Chronic Other hereditary and degenerative nervous system conditions (1 source) Restless legs syndrome; Translations: [RLS (restless legs syndrome)] Onset: 03-27-202 4 Chronic Other lower respiratory disease (1 source) Snoring; Translations: [Snoring] Episodic Other nervous system disorders (1 source) Small fiber neuropathy; Translations: [Polyneuropathy, unspecified] Chronic Other nervous system disorders (4 sources) Disorder of autonomic nervous system; Translations: [Disorder of the autonomic nervous system, unspecified] Chronic Other nervous system disorders (9 sources) Chronic pain; Translations: [Other chronic pain] Onset: 2 Chronic Other nervous system disorders (6 sources) Other chronic pain; Translations: [Other chronic pain] Onset: 2 Chronic Other nervous system disorders (20 sources) Neuropathy; Translations: [Polyneuropathy, unspecified] Onset: 4 12-21-2022 Chronic Other nervous system disorders (1 source) Polyneuropathy, unspecified; Translations: [Neuropathy] Onset: 3 Chronic Other nervous system disorders (16 sources) Paresthesia; Translations: [Paresthesia of skin] Onset: 2 Episodic Other nervous system disorders (1 source) Tremor; Translations: [Tremor, unspecified] Episodic Other nervous system disorders (4 sources) Hyperreflexia; Translations: [Abnormal reflex] 12-21-2022 Episodic Other nervous system disorders (4 sources) Muscle fasciculation; Translations: [Fasciculation] 12-21-2022 Episodic Other nervous system disorders (1 source) Psychosomatic musculoskeletal symptoms; Translations: [Tremor, unspecified] 12-21-2022 Episodic Other nervous system disorders (1 source) Abnormal involuntary movement; Translations: [Unspecified abnormal involuntary movements] 02-28-2023 Episodic Other nervous system disorders (11 sources) Abnormal gait; Translations: [Unspecified abnormalities of gait and mobility] Onset: 4 07-31-2023 Episodic Other nervous system disorders (1 source) Involuntary movement; Translations: [Unspecified abnormal involuntary movements] 09-29-2023 Episodic Other nervous system disorders (1 source) Other acute postprocedural pain; Translations: [Other acute postprocedural pain] Onset: 4 Episodic Other non-traumatic joint disorders (1 source) Joint pain; Translations: [Pain in unspecified joint] Episodic Other and delivery including normal (12 sources) Urine test positive; Translations: [Normal ] 11-26-2020 Episodic Other skin disorders (1 source) Skin lesion; Translations: [Disorder of the skin and subcutaneous tissue, unspecified] Episodic Other skin disorders (1 source) Dry skin dermatitis; Translations: [Xerosis cutis] 10-30-2023 Episodic Other skin disorders (1 source) Eruption; Translations: [Rash and other nonspecific skin eruption] 12-12-2023 Episodic Other upper respiratory disease (1 source) Abnormal voice; Translations: [Unspecified voice and resonance disorder] 07-21-2023 Episodic Other upper respiratory disease (1 source) Dysphonia; Translations: [Dysphonia] 07-24-2023 Episodic Residual codes; unclassified (5 sources) Hypersomnia; Translations: [Hypersomnia, unspecified] Chronic Residual codes; unclassified (3 sources) Parasomnia; Translations: [Parasomnia, unspecified] Chronic Residual codes; unclassified (2 sources) Sleep paralysis; Translations: [Other sleep disorders] Chronic Residual codes; unclassified (2 sources) Hypersomnia, unspecified; Translations: [Excessive sleepiness] Onset: 4 Chronic Residual codes; unclassified (1 source) Parasomnia, unspecified; Translations: [Parasomnia, unspecified type] Onset: 4 Chronic Residual codes; unclassified (1 source) Other sleep disorders; Translations: [Sleep paralysis] Onset: 4 Chronic Residual codes; unclassified (3 sources) Gestation period, 24 weeks; Translations: [24 weeks gestation of ] Onset: 08-28-2020 Episodic Residual codes; unclassified (1 source) Inadequate sleep hygiene; Translations: [Inadequate sleep hygiene] Episodic Residual codes; unclassified (1 source) History of clinical finding in subject; Translations: [Personal history of other specified conditions] Episodic Residual codes; unclassified (1 source) Left before being seen; Translations: [Procedure and treatment not carried out due to patient leaving prior to being seen by health care provider] Episodic Residual codes; unclassified (1 source) Failed encounter; Translations: [No-show for appointment] 11-08-2023 Episodic Screening and history of mental health and substance abuse codes (16 sources) Patient encounter status; Translations: [Encounter for screening examination for mental health and behavioral disorders, unspecified] Onset: 2 Episodic Spondylosis; intervertebral disc disorders; other back problems (20 sources) Prolapsed lumbar intervertebral disc; Translations: [Other intervertebral disc displacement, lumbar region] Onset: 3 Chronic Spondylosis; intervertebral disc disorders; other back problems (20 sources) Chronic low back pain; Translations: [Lumbago with sciatica, right side] Onset: 2 Episodic Syncope (1 source) Vasovagal syncope; Translations: [Syncope and collapse] 08-03-2023 Episodic Unclassified (10 sources) Preprocedural examination done; Translations: [Preop examination] Onset: 0 12-30-2019 Unclassified (1 source) Patient encounter status; Translations: [Encounter for other specified screening] Unclassified (1 source) Cancer cervix screening status; Translations: [Screening for cervical cancer] Unclassified (1 source) Finding of sensation of abdomen; Translations: [Abdominal cramping] Unclassified (4 sources) History of loop electrosurgical excision procedure; Translations: [History of LEEP (loop electrosurgical excision procedure) of cervix complicating ] Onset: 1 09-08-2020 Unclassified (3 sources) APPOINTMENT CANCELLED Unclassified (2 sources) Mouth Lesions Onset: 3 Unclassified (1 source) Acute midline low back pain without sciatica; Translations: [Acute midline low back pain without sciatica] Onset: 3 Unclassified (1 source) Adenomyosis of the uterus; Translations: [Adenomyosis of the uterus] Onset: 4 Unclassified (1 source) No-show for appointment; Translations: [No-show for appointment] Onset: 4 Unclassified (1 source) POTS (postural orthostatic tachycardia syndrome); Translations: [POTS (postural orthostatic tachycardia syndrome)] Onset: 4 Viral infection (20 sources) Herpes simplex type 2 infection; Translations: [Other viral diseases complicating , unspecified trimester] 09-08-2020 Episodic Past or Other Problems Problem Classification Problem Date Documented Da te Episodic/Chronic Administrative/social admission (20 sources) Person with feared health complaint in whom no diagnosis is made; Translations: [Person with feared complaint in whom no diagnosis was made] Onset: 02-02-2023 02-02-2023 Episodic Blindness and vision defects (20 sources) Visual disturbance; Translations: [Unspecified visual disturbance] Onset: 02-18-2022 Episodic Cardiac dysrhythmias (16 sources) Palpitations; Translations: [Palpitations] Onset: 01-03-2023 Episodic Conditions associated with dizziness or vertigo (20 sources) Lightheadedness; Translations: [Vertigo] Onset: 08-28-2020 08-28-2020 Episodic Diabetes or abnormal glucose tolerance complicating ; childbirth; or the puerperium (19 sources) with abnormal glucose tolerance test; Translations: [Abnormal glucose complicating ] Onset: 10-06-2020 10-06-2020 Episodic Epilepsy; convulsions (3 sources) Seizure; Translations: [Unspecified convulsions] Onset: 04-11-2022 Episodic Hemorrhage during ; abruptio placenta; placenta previa (1 source) Threatened miscarriage; Translations: [Threatened , antepartum] Episodic Malaise and fatigue (20 sources) Fatigue; Translations: [Other fatigue] Onset: 02-18-2022 Episodic Nonspecific chest pain (20 sources) Tight chest; Translations: [Other chest pain] Onset: 01-03-2023 Episodic Other circulatory disease (1 source) Other specified symptoms and signs involving the circulatory and respiratory systems; Translations: [Labile blood pressure] Onset: 08-03-2023 Episodic Other complications of (20 sources) Complication of , childbirth and/or the puerperium; Translations: [Other specified related conditions, unspecified trimester] Onset: 08-28-2020 08-28-2020 Episodic Other complications of (20 sources) Previous operation to cervix affecting ; Translations: [Maternal care for other abnormalities of cervix, unspecified trimester] Onset: 09-08-2020 09-08-2020 Episodic Other complications of (20 sources) Abdominal pain in ; Translations: [Other specified related conditions, third trimester] Onset: 10-30-2020 Episodic Other complications of (19 sources) Anxiety in ; Translations: [Other mental disorders complicating , unspecified trimester] Onset: 08-28-2020 09-08-2020 Episodic Other complications of (8 sources) Poor growth affecting management; Translations: [Maternal care for other known or suspected poor growth, first trimester, fetus 1] Onset: 11-25-2020 11-25-2020 Episodic Other connective tissue disease (20 sources) Neurological symptom; Translations: [Unspecified symptoms and signs involving the nervous system] Onset: 02-27-2022 Episodic Other connective tissue disease (20 sources) Fibromyalgia; Translations: [Fibromyalgia] Onset: 02-02-2023 Episodic Other connective tissue disease (3 sources) Unspecified symptoms and signs involving the nervous system; Translations: [Unspecified symptoms and signs involving the nervous system] Onset: 02-27-2022 Episodic Other connective tissue disease (20 sources) Myofascial pain syndrome; Translations: [Myalgia, other site] Onset: 02-02-2023 02-02-2023 Episodic Other connective tissue disease (20 sources) Transient neurological symptoms; Translations: [Other symptoms and signs involving the nervous system] Onset: 02-02-2023 02-02-2023 Episodic Other connective tissue disease (1 source) Fibromyalgia; Translations: [Fibromyalgia] Onset: 08-07-2023 Episodic Other connective tissue disease (1 source) Other symptoms and signs involving the nervous system; Translations: [Transient autonomic symptoms] Onset: 02-02-2023 Episodic Other connective tissue disease (1 source) Cramp and spasm; Translations: [Muscle cramp] Onset: 08-03-2023 Episodic Other gastrointestinal disorders (11 sources) Loose stool; Translations: [Other fecal abnormalities] Onset: 03-30-2022 03-30-2022 Episodic Other hematologic conditions (17 sources) Hematocrit - PCV - high; Translations: [Other abnormality of red blood cells] Onset: 02-18-2022 Episodic Other hematologic conditions (2 sources) Other abnormality of red blood cells; Translations: [Other abnormality of red blood cells] Onset: 02-18-2022 Episodic Other lower respiratory disease (6 sources) Dyspnea; Translations: [Shortness of breath] Onset: 01-03-2023 Episodic Other nervous system disorders (20 sources) Skin sensation disturbance; Translations: [Unspecified disturbances of skin sensation] Onset: 02-02-2023 Episodic Other nervous system disorders (2 sources) Paresthesia of skin; Translations: [Disturbance of skin sensation] Onset: 08-03-2023 Episodic Other nervous system disorders (20 sources) Muscle twitch; Translations: [Fasciculation] Onset: 02-02-2023 02-02-2023 Episodic Other nervous system disorders (1 source) Unspecified abnormalities of gait and mobility; Translations: [Abnormality of gait] Onset: 07-31-2023 Episodic Other nervous system disorders (1 source) Abnormal reflex; Translations: [Hyperreflexia] Onset: 01-10-2023 Episodic Other nervous system disorders (1 source) Fasciculation; Translations: [Fasciculations] Onset: 01-10-2023 Episodic Other nervous system disorders (1 source) Unspecified disturbances of skin sensation; Translations: [Disturbance of skin sensation] Onset: 01-04-2023 Episodic Other screening for suspected conditions (not mental disorders or infectious disease) (20 sources) Other specified abnormal findings of blood chemistry; Translations: [Other abnormal blood chemistry] Onset: 08-05-2022 Episodic Other skin disorders (2 sources) Disorder of the skin and subcutaneous tissue, unspecified; Translations: [Disorder of the skin and subcutaneous tissue, unspecified] Onset: 08-15-2022 Episodic Other upper respiratory disease (1 source) Unspecified voice and resonance disorder; Translations: [Abnormal voice] Onset: 07-24-2023 Episodic Residual codes; unclassified (20 sources) Gestation period, 26 weeks; Translations: [26 weeks gestation of ] Onset: 08-28-2020 09-08-2020 Episodic Residual codes; unclassified (19 sources) Gestation period, 33 weeks; Translations: [33 weeks gestation of ] Onset: 10-30-2020 10-30-2020 Episodic Suicide and intentional self-inflicted injury (2 sources) Suicidal thoughts; Translations: [Suicidal ideations] Onset: 05-02-2015 08-08-2018 Episodic Urinary tract infections (1 source) Acute cystitis with hematuria; Translations: [Acute cystitis with hematuria] Onset: 03-31-2023 Episodic NEGATED: Highlighted row has been ruled out!Unclassified (11 sources) No known active problems Results Test Name Value Interpretation Reference Range Facility CNPNon 12-05-2023 CNPN Normal [facility] ACTH Plas-mCncon 11-29-2023 Corticotropin (P) [Mass/Vol] 11.7 pg/mL Normal 7.2-63.3 [facility] Comment on above: Order Comment: Speci men Type: BLOOD SPECIMENOrdering Facility: [facility] Address: [address] [place] [address] Result Comment: ACTH Reference Range: 7-10 am: 7.2 - 63.3 pg/mL Performed By: #### 2 141-0 ####[facility] [id number] [place] [address] [place] CNTHERAPYon 11-29-2023 CNTHERAPY Normal [facility] Cortis SerPl-mCncon 11-29-19 24 Cortisol [Mass/Vol] 8.3 ug/dL Normal 4.8-19.5 [facility] Comment on above: Order Comment: Speci men Type: BLOOD SPECIMENOrdering Facility: [facility] Address: [address] [place] [address] Result Comment: Prov ided reference range is from 6-10 AM sample collection time.Cortisol Reference Range: 6-10 AM = 4.8-19.5 ug/dL, 4-8 PM = 2.5-11.9 ug/dL Performed By: #### Steve ESQUIVEL 6 ####[facility] [id number] [place] [address] [place] DHEA-S BLDon 11-29-2023 DHEA-S [Mass/Vol] 354.6 ug/dL High 98.8-340.0 [facility] Comment on above: Order Comment: Speci men Type: BLOOD SPECIMENOrdering Facility: [facility] Address: [address] [place] [address] Result Comment: Refe rence ranges are age and gender specific. For additional information, reference range tables can be found in the laboratory test directory.The normal values are based on the following source: Dehydroepiandrosterone sulfate (DHEA S) [package insert V 17.0 [place]]. [facility], [place], [place]: January 2013. Performed By: #### Steve ESQUIVEL 2142-6 ####[facility] [id number] [place] [address] [place] THERAPY NTon 11-29-2023 THERAPY NT Normal [facility] TOXICOLOGY SCREEN, ROUTINE U RINEon 11-29-2023 Amphetamines Confirm (U) [Mass/Vol] Negative Normal Negative [facility] Comment on above: Order Comment: Speci men Type: URINE SPECIMENOrdering Facility: [facility] Address: [address] [place] [address] Result Comment: Cuto ff threshold at 1000 ng/mL. Performed By: #### U TOX2 ####[facility] [id number] [place] [address] [place] BARBITURATES, URINE Negative Normal Negative [facility] Comment on above: Order Comment: Speci men Type: URINE SPECIMENOrdering Facility: [facility] Address: [address] [place] [address] Result Comment: Cuto ff threshold at 200 ng/mL. Performed By: #### U TOX2 ####[facility] [id number] [place] [address] [place] BENZODIAZEPINES, UR Negative Normal Negative [facility] Comment on above: Order Comment: Speci men Type: URINE SPECIMENOrdering Facility: [facility] Address: [address] [place] [address] Result Comment: Cuto ff threshold at 200 ng/mL. Performed By: #### U TOX2 ####[facility] [id number] [place] [address] [place] Cannabinoids Screen Ql (U) Negative Normal Negative [facility] Comment on above: Order Comment: Speci men Type: URINE SPECIMENOrdering Facility: [facility] Address: [address] [place] [address] Result Comment: Cuto ff threshold at 50 ng/mL. Performed By: #### U TOX2 ####[facility] [id number] [id number] [address] [place] Cocaine Ql (U) Negative Normal Negative [facility] Comment on above: Order Comment: Speci men Type: URINE SPECIMENOrdering Facility: [facility] Address: [address] [place] [address] Result Comment: Cuto ff threshold at 300 ng/mL. Performed By: #### U TOX2 ####[facility] [id number] [place] [address] [place] Ethanol (U) [Mass/Vol] <11 Normal <11 [facility] Comment on above: Order Comment: Speci men Type: URINE SPECIMENOrdering Facility: [facility] Address: [address] [place] [address] Performed By: #### U TOX2 ####[facility] [id number] [place] [address] [place] Opiates Screen Ql (U) Negative Normal Negative [facility] Comment on above: Order Comment: Speci men Type: URINE SPECIMENOrdering Facility: [facility] Address: [address] [place] [address] Result Comment: Cuto ff threshold at 300 ng/mL. Performed By: #### U TOX2 ####[facility] [id number] [place] [address] [place] oxyCODONE cutoff Screen (U) [Mass/Vol] Negative Normal Negative [facility] Comment on above: Order Comment: Speci men Type: URINE SPECIMENOrdering Facility: [facility] Address: [address] [place] [address] Result Comment: Cuto ff threshold at 100 ng/mL. Performed By: #### U TOX2 ####[facility] [id number] [place] [address] [place] Phencyclidine Ql (U) Negative Normal Negative [facility] Comment on above: Order Comment: Speci men Type: URINE SPECIMENOrdering Facility: [facility] Address: [address] [place], [place] [address], [place] [address] Result Comment: Cuto ff threshold at 25 ng/mL. Performed By: #### U TOX2 ####[facility] [id number] [id number] [id number] [place] Vaginitis DNA Probeon 2023 Jose David Negative Normal [facility] Comment on above: Result Comment: for Jose David sp. Method of testing is a DNA probe intended for detection and identification of Jose David species, Gardnerella vaginalis, and Trichomonas vaginalis nucleic acid in vaginal fluid specimens from patients with symptoms of vaginitis/vaginosis. Performed By: #### V AGP #### [address] [address] Outside Operator: Ramin Fenton MD [facility] [address] [place] [address] [place] [address] Outside Operator: Priscila Alvarenga MD Gardnerella Negative [facility] Comment on above: Result Comment: for Gardnerella vaginalis Performed By: #### V AGP #### [address] [address] Outside Operator: Ramin Fenton MD [facility] [address] [place] [address] [place] [address] Outside Operator: Priscila Alvarenga MD Trichomonas Negative [facility] Comment on above: Result Comment: for Trichomonas Vaginalis Performed By: #### V AGP #### [address] [address] Outside Operator: Ramin Fenton MD [facility] [address] [place] [address] [place] [address] Outside Operator: Priscila Alvarenga MD Source .VAGINAL SWAB [facility] Comment on above: Performed By: #### V AGP #### [address] [address] Outside Operator: Ramin Fenton MD [facility] [address] [place], [place] [id number] Outside Operator: Priscila Alvarenga MD CNPNon 11-02-2023 CNPN Normal [facility] CNOVon 10-24-2023 CNOV Normal [facility] CNPTOUTREACHon 10-24-2023 CNPTOUTREACH Normal [facility] URINALYSIS, REFLEX MICROSCOP ICon 10-24-2023 Bilirubin Ql (U) Negative Negative [facility] Clarity (Unsp spec) Clear Clear [facility] Color (U) Light Yellow Yellow [facility] Glucose Test strip (U) [Mass/Vol] Negative Trace, Negative [facility] Hemoglobin Ql (U) Negative Negative, Trace [facility] Interpretation and review of laboratory results Normal [facility] Ketones Ql (U) Negative Negative, Trace [facility] Leukocyte esterase Test strip Ql (U) Negative Negative, 25 Charissa/uL [facility] Nitrite Ql (U) Negative Negative [facility] pH (U) 6.0 [pH] 5.0 - 8.0 [facility] Protein (U) [Mass/Vol] Negative Trace , Negative [facility] Specific gravity (U) [Rel density] 1.013 1.005 - 1.030 [facility] Urobilinogen Ql (U) Normal Normal [facility] Bilirubin Ql (U) Negative Normal Negative [facility] Comment on above: Order Comment: Speci men Type: URINE SPECIMENOrdering Facility: [facility] Address: [address] [place] [address] Performed By: #### L [id number] ####[facility] [id number] [place] [address] [place] Clarity (Unsp spec) Clear Normal Clear [facility] Comment on above: Order Comment: Speci men Type: URINE SPECIMENOrdering Facility: [facility] Address: [address] [place] [address] Performed By: #### L [id number] ####[facility] [id number] [place] [address] [place] Color (U) Light Yellow Normal Yellow [facility] Comment on above: Order Comment: Speci men Type: URINE SPECIMENOrdering Facility: [facility] Address: [address] [place] [address] Performed By: #### L [id number] ####[facility] [id number] [place] [address] [place] Glucose Test strip (U) [Mass/Vol] Negative Normal Trace, Negative [facility] Comment on above: Order Comment: Speci men Type: URINE SPECIMENOrdering Facility: [facility] Address: [address] [place] [address] Performed By: #### L [id number] ####[facility] [id number] [place] [address] [place] Hemoglobin Ql (U) Negative Normal Negative, Trace [facility] Comment on above: Order Comment: Speci men Type: URINE SPECIMENOrdering Facility: [facility] Address: [address] [place] [address] Performed By: #### L [id number] ####[facility] [id number] [place] [address] [place] Ketones Ql (U) Negative Normal Negative, Trace [facility] Comment on above: Order Comment: Speci men Type: URINE SPECIMENOrdering Facility: [facility] Address: [address] [place] [address] Performed By: #### L [id number] ####[facility] [id number] [place] [address] [place] Leukocyte esterase Test strip Ql (U) Negative Normal Negative, 25 Charissa/uL [facility] Comment on above: Order Comment: Speci men Type: URINE SPECIMENOrdering Facility: [facility] Address: [address] [place] [address] Performed By: #### L [id number] ####[facility] [id number] [place] [address] [place] Nitrite Ql (U) Negative Normal Negative [facility] Comment on above: Order Comment: Speci men Type: URINE SPECIMENOrdering Facility: [facility] Address: [address] [place] [address] Performed By: #### L [id number] ####[facility] [id number] [place] [address] [place] pH (U) 6.0 [pH] Normal 5.0-8.0 [facility] Comment on above: Order Comment: Speci men Type: URINE SPECIMENOrdering Facility: [facility] Address: [address] [place] [address] Performed By: #### L [id number] ####[facility] [id number] [place] [address] [place] Protein (U) [Mass/Vol] Negative Normal Trace , Negative [facility] Comment on above: Order Comment: Speci men Type: URINE SPECIMENOrdering Facility: [facility] Address: [address] [place] [address] Performed By: #### L [id number] ####[facility] [id number] [place] [address] [place] Specific gravity (U) [Rel density] 1.013 Normal 1.005-1.030 [facility] Comment on above: Order Comment: Speci men Type: URINE SPECIMENOrdering Facility: [facility] Address: [address] [place] [address] Performed By: #### L [id number] ####[facility] [id number] [place] [address] [place] Urobilinogen Ql (U) Normal Normal Normal [facility] Comment on above: Order Comment: Speci men Type: URINE SPECIMENOrdering Facility: [facility] Address: [address] [place] [address] Performed By: #### L [id number] ####[facility] [id number] [place] [address] [place] CNPNon 10-23-2023 CNPN Normal [facility] CNTHERAPYon 10-23-2023 CNTHERAPY Normal [facility] THERAPY NTon 10-23-2023 THERAPY NT Normal [facility] CNPNon 10-18-2023 CNPN Normal [facility] CNOVon 10-16-2023 CNOV Normal [facility] CNOVon 10-10-2023 CNOV Normal [facility] CNPNon 10-09-2023 CNPN Normal [facility] CNPNon 10-03-2023 CNPN Normal [facility] HCG, ,Urineon 10-01 Beta HCG ( test) Ql (U) Negative Normal NEG [facility] Comment on above: Result Comment: Spec imens with hCG levels near the threshold of the test (25 mIU/mL) may give a negative or indeterminate result. In such cases, another test should be performed with a new specimen in 48-72 hours. If early is suspected clinically in this setting, correlation with quantitative serum b-hCG level is suggested. [place] has confirmed the use of plasma for this test. This has not been cleared or approved by the U.S. Food and Drug Administration. The FDA has determined that such clearance is not necessary. Performed By: #### V [facility] #### [facility] [address] [place] [address] Outside Operator: Ramin Fenton MD [facility] [address] [place] [address] Outside Operator: Priscila Alvarenga MD Surgical Pathology Reporton 10-02-2023 Surgical Pathology Report (NOTE) Path Number: [id number] -- Diagnosis -- Uterus and bilateral fallopian tubes, total hysterectomy and bilateral salpingectomy: Chronic cystic cervicitis, negative for dysplasia. Proliferative endometrium. Adenomyosis. Intramural leiomyoma, diameter 1.0 cm. Bilateral fimbriated fallopian tubes with right paratubal simple cyst, diameter 1.0 cm. Todd James. Electronically Signed Out 10/05/2023 Clinical Information Pre-Op Diagnosis: PELVIC PAIN; ADENOMYOSIS Operative Findings: UTERUS, CERVIX, BILATERAL FALLOPIAN TUBES Operation Performed: HYSTERECTOMY VAGINAL LAPAROSCOPIC ROBOTIC ASSISTED-POSSIBLE BSO, POSSIBLE LAPAROSCOPIC COLPOPEXY kb Source of Specimen A: UTERUS, CERVIX, BILATERAL FALLOPIAN TUBES Gross Description BETHANIE DINERO UTERUS, CERVIX, BILATERAL FALLOPIAN TUBES Received in formalin is a uterus with attached cervix and bilateral fimbriated fallopian tube segments. Dimensions: Uterus and cervix 11.2 x 6.3 x 4.5 cm. Weight: Uterus and cervix 104 grams. Serosa: [place]. Cervix: 4.6 x 3.5 x 3.4 cm, the transformation zone is faintly granular with no masses. The os is patent. Endometrium: The cavity is 6.5 x 2.5 cm with a pink-red surface and ranges in thickness from 0.1 to 0.3 cm. The endomyometrial junction is focally ill-defined. Myometrium: The myometrium has a maximum thickness of 2.0 cm and is finely trabecular with a 1.0 cm garrison-white myomatous nodule that displays no hemorrhage or necrosis. Tubes/ovaries: The left fimbriated fallopian tube segment is 7.0 cm long x 0.4 cm in diameter with a purple-amaral serosa and an unremarkable lumen. The right fimbriated fallopian tube segment is 6.8 cm long x 0.5 cm in diameter with a purple-amaral serosa and near the fimbriated end is a 1.0 cm translucent paratubal cyst. The lumen is unremarkable. Cassette summary: 1-2 anterior cervix contiguous lower uterine segment with ectocervical side inked red in 2, 3-7 remainder anterior cervix transformation zone, 8-9 posterior cervix contiguous lower uterine segment with ectocervical side inked red in 9, 10-13 remainder anterior cervix transformation zone, 14-15 anterior endomyometrium full thickness sections, 16-17 posterior endomyometrium full thickness sections, 18 left tube, fimbriated in entirety, 19 right tube, fimbriated in entirety. alanna Ga/kb2:10/03/2023 Microscopic Description 19 ANN reviewed. Microscopic examination performed. Processing Lab: [place] [id number] Interpretation Performed at [facility] [address] [place] [address] SURGICAL PATHOLOGY CONSULTATION Patient Name: BETHANIE DINERO Rec: [id number] [facility] ANATOMIC PATHOLOGY [address] [facility] [place], [place] [address] Normal [facility] CNPNon 09-27-2023 CNPN Normal [facility] CNOVon 09-25-2023 CNOV Normal [facility] Basic metabolic 2000 panelon 08-07-2023 Anion gap [Moles/Vol] 7 mmol/L Low 9-18 [facility] Comment on above: Order Comment: Speci men Type: BLOOD SPECIMENOrdering Facility: [facility] Address: [address] [place] [address] Performed By: #### 1 9123-9, 82386-9 ####[facility]ORATORYCLIA [id number] [place] [address] [place] Calcium [Mass/Vol] 9.7 mg/dL Normal 8.5-10.2 [facility] Comment on above: Order Comment: Speci men Type: BLOOD SPECIMENOrdering Facility: [facility] Address: [address] [place] [address] Performed By: #### 1 9123-9, 65052-1 ####[facility] LABORATORYCLIA [id number] [place] [address] [place] Chloride [Moles/Vol] 100 mmol/L Normal 97-105 [facility] Comment on above: Order Comment: Speci men Type: BLOOD SPECIMENOrdering Facility: [facility] Address: [address] [place] [address] Performed By: #### 1 9123-9, 03456-6 ####[facility]ORATORYCLIA [id number] [place] [address] [place] CO2 [Moles/Vol] 29 mmol/L Normal 22-30 [facility] Comment on above: Order Comment: Speci men Type: BLOOD SPECIMENOrdering Facility: [facility] Address: [address] [place] [id number] Performed By: #### 1 9123-9, 43867-2 ####[facility]ORATORYCLIA [id number] [place] [address] [place] Creatinine [Mass/Vol] 0.87 mg/dL Normal 0.58-0.96 [facility] Comment on above: Order Comment: Speci men Type: BLOOD SPECIMENOrdering Facility: [facility] Address: [address] [place] [address] Performed By: #### 1 9123-9, 25898-5 ####[facility] LABORATORYCLIA [id number] [place], [place] [address] [place] [address] [place] Creatinine and Glomerular filtration rate.predicted panel (S/P/Bld) 90 mL/min/1.73m??? Normal >=60 [facility] Comment on above: Order Comment: Speci [facility] Type: BLOOD SPECIMENOrdering Facility: [facility] Address: [address] [place] [address] Result Comment: Irma mated Glomerular Filtration Rate (eGFR) is calculated using the 2020 CKD-EPI creatinine equation. This equation utilizes serum creatinine, sex, and age as parameters. The creatinine assay has traceable calibration to isotope dilution-mass spectrometry. Refer to KDIGO guidelines for clinical interpretation. In patients with unstable renal function, e.g. those with acute kidney injury, the eGFR may not accurately reflect actual GFR. Performed By: #### 1 9123-9, 80023-4 ####[facility]ORATORYCLIA [id number] [place] [address] [place] Glucose [Mass/Vol] 86 mg/dL Normal 74-99 [facility] Comment on above: Order Comment: Speci [facility] Type: BLOOD SPECIMENOrdering Facility: [facility] Address: [address] [place] [address] Result Comment: The [place] Diabetes Association (ADA) provides guidance for cutoff values for fasting glucose and random glucose. The ADA defines fasting as no caloric intake for at least 8 hours. Fasting plasma glucose results between 100 to 125 mg/dL indicate increased risk for diabetes (prediabetes). Fasting plasma glucose results greater than or equal to 126 mg/dL meet the criteria for diagnosis of diabetes. In the absence of unequivocal hyperglycemia, results should be confirmed by repeat testing. In a patient with classic symptoms of hyperglycemia or hyperglycemic crisis, random plasma glucose results greater than or equal to 200 mg/dL meet the criteria for diagnosis of diabetes. Reference: Standards of Medical Care in Diabetes 2016, [place] Diabetes Association. Diabetes Care. 2016.39(Suppl 1). Performed By: #### 1 91239, 21929-2 ####[facility]ENTER[facility]IA [id number] [place] [address] [place] Potassium [Moles/Vol] 4.1 mmol/L Normal 3.7-5.1 [facility] Comment on above: Order Comment: Rey hurt Type: BLOOD SPECIMENOrdering Facility: [facility] Address: [address] [place] [address] Performed By: #### 1 9123, ####[facility] NORWALKIA [id number] [place] [address] [place] Sodium [Moles/Vol] 136 mmol/L Normal 136-144 [facility] Comment on above: Order Comment: Rey hurt Type: BLOOD SPECIMENOrdering Facility: [facility] Address: [address] [place] [address] Performed By: #### 1 [address], ####[facility] NORWALKIA [id number] [place] [address] [place] Urea nitrogen [Mass/Vol] 9 mg/dL Normal 7-21 [facility] Comment on above: Order Comment: Rey hurt Type: BLOOD SPECIMENOrdering Facility: [facility] Address: [address] [place] [address] Performed By: #### 1 91239, 81451-6 ####[facility] LABORATORYIA [id number] [place] [address] [place] CBC W Auto Differential pane l (Bld)on 08-07-2023 Basophils (Bld) [#/Vol] 0.03 10*3/uL Normal <0.11 [facility] Comment on above: Order Comment: Speci men Type: BLOOD SPECIMEN [facility]ing Facility: [facility] Address: [address] [place] [address] Performed By: #### C ORTBAS #### [facility] CLIA [id number] [address] [place] [address] [place] Basophils/100 WBC (Bld) 0.4 % Normal [facility] Comment on above: Order Comment: Speci men Type: BLOOD SPECIMEN [facility]ing Facility: [facility] Address: [address] [place] [address] Performed By: #### C ORTBAS #### [facility] CLIA [id number] [address] [place] [address] [place] Differential cell count method Nom (Bld) Auto Normal [facility] ital Comment on above: Order Comment: Speci men Type: BLOOD SPECIMEN [facility]ing Facility: [facility] Address: [address] [place] [address] Performed By: #### C ORTBAS #### [facility] CLIA [id number] [address] [place] [address] [place] Eosinophils (Bld) [#/Vol] 0.17 10*3/uL Normal <0.46 [facility] Comment on above: Order Comment: Speci men Type: BLOOD SPECIMEN [facility]ing Facility: [facility] Address: [address] [place] [address] Performed By: #### C ORTBAS #### [facility] CLIA [id number] [address] [place] [address] [place] Eosinophils/100 WBC (Bld) 2.2 % Normal [facility] Comment on above: Order Comment: Speci men Type: BLOOD SPECIMEN [facility]ing Facility: [facility] Address: [address] [place] [address] Performed By: #### C ORTBAS #### [facility] CLIA [id number] [address] [place] [address] [place] Erythrocyte distribution width (RBC) [Ratio] 12.9 % Normal 11.5-15.0 [facility] Comment on above: Order Comment: Speci men Type: BLOOD SPECIMEN [facility]ing Facility: [facility] Address: [address] [place] [address] Performed By: #### C ORTBAS #### [facility] CLIA [id number] [address] [place] [address] [place] Hematocrit (Bld) [Volume fraction] 44.1 % Normal 36.0-46.0 [facility] Comment on above: Order Comment: Speci men Type: BLOOD SPECIMEN [facility]ing Facility: [facility] Address: [address] [place] [address] Performed By: #### C ORTBAS #### [facility] CLIA [id number] [address] [place] [address] [place] Hemoglobin (Bld) [Mass/Vol] 14.8 g/dL Normal 11.5-15.5 [facility] Comment on above: Order Comment: Speci men Type: BLOOD SPECIMEN [facility]ing Facility: [facility] Address: [address] [place] [address] Performed By: #### C ORTBAS #### [facility] CLIA [id number] [address] [place] [address] [place] Immature granulocytes (Bld) [#/Vol] 10*3/uL Normal <0.10 [facility] Comment on above: Order Comment: Speci men Type: BLOOD SPECIMEN [facility]ing Facility: [facility] Address: [address] [place] [address] Performed By: #### C ORTBAS #### [facility] CLIA [id number] [address] [place] [address] [place] Immature granulocytes/100 WBC (Bld) 0.1 % Normal [facility] Comment on above: Order Comment: Speci men Type: BLOOD SPECIMEN [facility]ing Facility: [facility] Address: [address] [place] [address] Performed By: #### C ORTBAS #### [facility] CLIA [id number] [address] [place] [address] [place] Lymphocytes (Bld) [#/Vol] 2.79 10*3/uL Normal 1.00-4.00 [facility] Comment on above: Order Comment: Speci men Type: BLOOD SPECIMEN [facility]ing Facility: [facility] Address: [address] [place] [address] Performed By: #### C ORTBAS #### [facility] CLIA [id number] [address] [place] [address] [place] Lymphocytes/100 WBC (Bld) 36.2 % Normal [facility] Comment on above: Order Comment: Speci men Type: BLOOD SPECIMEN [facility]ing Facility: [facility] Address: [address] [place] [address] Performed By: #### C ORTBAS #### [facility] CLIA [id number] [address] [place] [address] [place] MCH (RBC) [Entitic mass] 30.0 pg Normal 26.0-34.0 [facility] Comment on above: Order Comment: Speci men Type: BLOOD SPECIMEN [facility]ing Facility: [facility] Address: [address] [place] [address] Performed By: #### C ORTBAS #### [facility] CLIA [id number] [address] [place] [address] [place] MCHC (RBC) [Mass/Vol] 33.6 g/dL Normal 30.5-36.0 [facility] Comment on above: Order Comment: Speci men Type: BLOOD SPECIMEN [facility]ing Facility: [facility] Address: [address] [place] [address] Performed By: #### C ORTBAS #### [facility] CLIA [id number] [address] [place] [address] [place] MCV (RBC) [Entitic vol] 89.3 fL Normal 80.0-100.0 [facility] Comment on above: Order Comment: Speci men Type: BLOOD SPECIMEN [facility] [facility] Address: [address] [place] [address] Performed By: #### C ORTBAS #### [facility] CLIA [id number] [address] [place] [address] [place] Monocytes (Bld) [#/Vol] 0.42 10*3/uL Normal <0.87 [facility] Comment on above: Order Comment: Speci men Type: BLOOD SPECIMEN Ordering Facility: [facility] Address: [address] [place] [address] Performed By: #### C ORTBAS #### [facility] CLIA [id number] [address] [place] [address] [place] Monocytes/100 WBC (Bld) 5.5 % Normal [facility] Comment on above: Order Comment: Speci men Type: BLOOD SPECIMEN Ordering Facility: [facility] Address: [address] [place] [address] Performed By: #### C ORTBAS #### [facility] CLIA [id number] [address] [place] [address] [place] Neutrophils (Bld) [#/Vol] 4.28 10*3/uL Normal 1.45-7.50 [facility] Comment on above: Order Comment: Speci men Type: BLOOD SPECIMEN Ordering Facility: [facility] Address: [address] [place] [address] Performed By: #### C ORTBAS #### [facility] CLIA [id number] [address] [place] [address] [place] Neutrophils/100 WBC (Bld) 55.6 % Normal [facility] Comment on above: Order Comment: Speci men Type: BLOOD SPECIMEN Ordering Facility: [facility] Address: [address] [place] [address] Performed By: #### C ORTBAS #### [facility] CLIA [id number] [address] [place] [address] [place] Nucleated RBC (Bld) [#/Vol] 10*3/uL Normal <0.01 [facility] Comment on above: Order Comment: Speci men Type: BLOOD SPECIMEN Ordering Facility: [facility] Address: [address] [place] [address] Performed By: #### C ORTBAS #### [facility] CLIA [id number] [address] [place] [address] [place] Nucleated RBC/100 WBC (Bld) [Ratio] 0.0 /100 WBC Normal [facility] Comment on above: Order Comment: Speci men Type: BLOOD SPECIMEN Ordering Facility: [facility] Address: [address] [place] [address] Performed By: #### C ORTBAS #### [facility] CLIA [id number] [address] [place] [address] [place] Platelet mean volume (Bld) [Entitic vol] 11.3 fL Normal 9.0-12.7 [facility] Comment on above: Order Comment: Speci men Type: BLOOD SPECIMEN Ordering Facility: [facility] Address: [address] [place] [address] Performed By: #### C ORTBAS #### [facility] CLIA [id number] [address] [place] [address] [place] Platelets (Bld) [#/Vol] 327 10*3/uL Normal 150-400 [facility] Comment on above: Order Comment: Speci men Type: BLOOD SPECIMEN Ordering Facility: [facility] Address: [address] [place] [address] Performed By: #### C ORTBAS #### [facility] CLIA [id number] [address] [place] [address] [place] RBC (Bld) [#/Vol] 4.94 10*6/uL Normal 3.90-5.20 [facility] Comment on above: Order Comment: Rey hurt Type: BLOOD SPECIMEN Ordering Facility: [facility] Address: [address] [place] [address] Performed By: #### C ORTBAS #### [facility] CLIA [id number] [address] [place] [address] WBC (Bld) [#/Vol] 7.70 10*3/uL Normal 3.70-11.00 [facility] Comment on above: Order Comment: Rey hurt Type: BLOOD SPECIMEN Ordering Facility: [facility] Address: [address] [place] [address] Performed By: #### C ORTBAS #### [facility] CLIA [id number] [address] [place] [address] CNDSon 08-07-2023 CNDS HNO ID: [id number] Author: ALLISON CHANEL MD Service: Hospital Medicine Author Type: Nurse Practitioner Type: Discharge Summary Filed: 08/08/2023 14:14 Note Text: Attestation signed by Allison Chanel MD at 08/08/2023 2:14 PM Attending Note I evaluated the patient and personally participated in the daley components. I agree with the resident's findings and plan as documented and have discussed the case and management of the patient's care with the resident. Plan of care discussed with: Provider, RN, Patient. Signature: Allison Chanel MD Date: August 08, 2023 Time: 2:14 PM DISCHARGE SUMMARY PATIENT NAME: Bethanie Dinero ADMISSION DATE: 08/03/2023 DISCHARGE DATE: 08/07/2023 ATTENDING PHYSICIAN: Allison Chaenl MD Code Status: Full Code PCP: Noa Gauthier DO Highest Readmission Risk Score: 13 The 30 day readmissions risk score is derived from an internally validated risk model which evaluates patient level characteristics, utilization history, medication orders and lab results up until the day of discharge. Patients with a score of 40 or above are considered highest risk for readmission. Specific patient level drivers will be listed at the bottom of the summary. TRANSITIONS OF CARE CRITICAL ISSUES: DALEY MEDICATION CHANGES: N/A LAB MONITORING NEEDED: Not applicable IMAGING FOLLOW-UP: Not applicable LABS AND PROCEDURES PENDING AT DISCHARGE: No No pending results. FOLLOW UP: PCP REASON FOR HOSPITALIZATION: Dizziness, lightheadedness, low blood pressure PRINCIPAL DIAGNOSIS: Orthostatic lightheadedness discharge instructionsOrthostatic lightheadedness SECONDARY DIAGNOSIS: Principal Problem: Orthostatic lightheadedness (POA: Yes) Active Problems: Muscle twitching (POA: Yes) Fibromyalgia (POA: Yes) Anxiety (POA: Yes) PTSD (post-traumatic stress disorder) (POA: Yes) Neuropathy (POA: Yes) Migraine (POA: Yes) Chest pain (POA: Yes) Malnutrition of moderate degree (HCC) (POA: Yes) Resolved Problems: * No resolved hospital problems. * Malnutrition Diagnosis supported by Registered Dietitian:Moderate Protein-Calorie Malnutrition Based on: Unintentional Weight Loss, Insufficient Energy Intake Assessment: I have reviewed the result of the malnutrition assessment and plan and agree Plan: Diet, Supplements, Medications, Vitamin/Mineral Supplements HOSPITAL COURSE: You were admitted to the hospital for complaints of lightheadedness, dizziness and low blood pressure. You received IV fluids, your blood pressure has improved. You continued to report some dizziness, recommended to wear ALEX hose during the day and remove them at night. You were evaluated for adrenal insufficiency. Cortisol level responded well after the injection, it was within normal limits We recommend you to stay hydrated, drink up to 2.5-3L of water to prevent dehydration and this will also help with dizziness. Nonpharmacological Treatment of Orthostatic Hypotension/ Orthostatic Intolerance - Make all postural changes from lying to sitting or sitting to standing, slowly. - Avoid large meals which can cause low blood pressure during digestion. It is better to eat smaller meals more often than 3 large meals. - Avoid alcohol. Alcohol can cause blood to pool in the legs which may worsen low blood pressure reactions when standing. - Perform lower extremity exercises to improve strength of the leg muscles.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 Comment: Speci men Type: BLOOD SPECIMENOrdering Facility: [facility] Address: [address] [place] [address] Result Comment: Prov ided reference range is from 6-10 AM sample collection time.Cortisol Reference Range: 6-10 AM = 4.8-19.5 ug/dL, 4-8 PM = 2.5-11.9 ug/dL Performed By: #### 2 143-6, 2731-8, 2157-6 ####[facility]CLIA [id number] [place] [id number] [place] ECG COMPLETEon 08-03-2023 ECG COMPLETE Ventricular Rate : 7 0 BPM Atrial Rate : 70 BPM P-R Interval : 144 ms QRS Duration : 88 ms Q-T Interval : 372 ms QTC Calculation(Bazett) : 401 ms Calculated P Boyd : 70 degrees Calculated R Boyd : 73 degrees Calculated T Boyd : 25 degrees Normal sinus rhythm Normal ECG 648p no STEMI Confirmed by MD VALERA LISA ([id number]), television news video editor STEPHANIE MORALES ([id number]) on 08/04/2023 10:20:54 AM NAME : BETHANIE DINERO PID : [id number] : 1990 Gender : Female Race : Other ORD : [id number] Procedure Date : Aug 03 2023 18:46:14 Edit Date : Aug 04 2023 10:21:00 Diagnosis: Normal sinus rhythm Normal ECG 648p no STEMI Confirmed by MD VALERA LISA ([id number]), television news video editor STEPHANIE MORALES ([id number]) on 08/04/2023 10:20:54 AM Test Reason : Chest Pain Location : 302 : ED Overread By : MD VALERA LISA Edited By : STEPHANIE MORALES Referred By : , Acquired by : [id number], [facility] ED NOTEon 08-03-2023 ED NOTE HNO ID: [id number] Author: CLAUDIA ODOM RN Service: ? Author Type: Registered Nurse Type: ED Notes Filed: 08/03/2023 20:57 Note Text: Patient returned to triage bay due to report of chest pain. VS obtained and documented. Second ECG and troponin obtained. Patient is awake, alert, oriented times four, and in no acute distress. Airway is patent and respirations are even and unlabored. No pallor, diaphoresis, or cyanosis. Was ambulatory with steady gait. Returned to waiting area. [facility] ED Triage Noteon 08-03-2023 ED Triage Note HNO ID: [id number] Author: UMBERTO VALERA DO Service: Emergency Medicine Author Type: Physician Type: ED Triage Notes Filed: 08/03/2023 18:46 Note Text: ED INTAKE NOTE Patient Name: Bethanie Dinero Service Date: 08/03/23 BRIEF HPI: 33-year-old female who is seen in outside hospital yesterday diagnosed with a migraine and bradycardia followed up with neurologist today and is being evaluated for Dickson's disease versus Centennial's disease and she thinks she might be in adrenal crisis because she checked up on her lab work and her cortisol and her ACTH was low. She states symptoms have been ongoing for a while but she is feeling worsening weakness dizziness lightheadedness sweating chest pain. BRIEF EXAM: Awake and Alert RRR HILARIO INTAKE WORKUP: Bloodwork: CBC CMP Cardiac Enzymes EKG Urinalysis Test Imaging: XR: Chest x-ray No diagnosis found. SIGNATURE: Umberto Valera DO Normal [facility] EKGon 08-03-2023 Electrocardiogram Ventricular Rate : 5 7 BPM Atrial Rate : 57 BPM P-R Interval : 150 ms QRS Duration : 86 ms Q-T Interval : 420 ms QTC Calculation(Bazett) : 408 ms Calculated P Boyd : 61 degrees Calculated R Boyd : 69 degrees Calculated T Boyd : 22 degrees Sinus bradycardia Otherwise normal ECG Confirmed by MD GONZALEZ CHRISTOPHER ([id number]) on 08/23/2023 6:46:17 PM NAME : BETHANIE DINERO PID : [id number] : 1990 Gender : Female Race : Other ORD : Procedure Date : Aug 03 2023 20:52:44 Edit Date : Aug 23 2023 18:46:23 Diagnosis: Sinus bradycardia Otherwise normal ECG Confirmed by MD GONZALEZ CHRISTOPHER ([id number]) on 08/23/2023 6:46:17 PM Test Reason : CHEST PAIN Location : 302 : ED Overread By : MD GONZALEZ CHRISTOPHER Edited By : MD GONZALEZ CHRISTOPHER Referred By : , Acquired by : [id number], Normal [facility] HIGH SENSITIVITY TROPONIN T (INITIAL)on 08-03-2023 Troponin T.cardiac High sensitivity method [Mass/Vol] <6 Normal <12 [facility] Comment on above: Order Comment: Speci men Type: BLOOD SPECIMEN Ordering Facility: [facility] Address: [address] [place] [address] Result Comment: When assessing risk for acute coronary syndromes: In patients undergoing blood draw greater than or equal to 2 hours from symptom onset, with history of very low to moderate risk and non-ischemic ECG, an initial hs-Troponin T less than 12 ng/L AND a 1 hour delta hs-Troponin T less than 3 ng/L should be considered very low risk for 30 day MACE. Performed By: #### C ORTBAS #### [facility] CLIA [id number] [address] [place] [address] [place] HIGH SENSITIVITY TROPONIN T (SECOND)on 08-03-2023 Troponin T.cardiac High sensitivity method [Mass/Vol] <6 Normal <12 [facility] Comment on above: Order Comment: Speci men Type: BLOOD SPECIMEN [facility]ing Facility: [facility] Address: [address] [place] [address] Result Comment: When assessing risk for acute coronary syndromes: In patients undergoing blood draw greater than or equal to 2 hours from symptom onset, with history of very low to moderate risk and non-ischemic ECG, an initial hs-Troponin T less than 12 ng/L AND a 1 hour delta hs-Troponin T less than 3 ng/L should be considered very low risk for 30 day MACE. Performed By: #### C ORTBAS #### [facility] CLIA [id number] [address] [place] [address] [place] INTRINSIC FACTOR BLOCKING AB on 08-03-2023 INTRINSIC FACTOR BLOCKING ANTIBODY Negative Normal Negative [facility] Comment on above: Order Comment: Speci men Type: BLOOD SPECIMENOrdering Facility: [facility] Address: [address] [place] [address] Result Comment: Perf ormed By: [employer] [place], [place] [id number] Director: Adela Parsons MD, PhDCLIA Number: [id number] Performed By: #### I NTFCT ####[facility] [id number] [place] [address] IgA SerPl-mCncon 08-03-2023 IgA [Mass/Vol] 277 mg/dL Normal 70-400 [facility] Comment on above: Order Comment: Speci men Type: BLOOD SPECIMENOrdering Facility: [facility] Address: [address] [place] [address] Performed By: #### 2 458-8 ####[facility]IA [id number] [place] [address] [place] NT-proBNP [facility] Natriuretic peptide.B prohormone N-Terminal [Mass/Vol] 92 pg/mL Normal <125 [facility] Comment on above: Order Comment: Speci men Type: BLOOD SPECIMENOrdering Facility: [facility] Address: [address] [place] [address] Performed By: #### 3 3762-6, 81888-8 ####[facility]ORATORYCLIA [id number] [facility] [place] [address] [place] PTH INTACT BLDon 08-03-2023 Parathyrin.intact [Mass/Vol] 37 pg/mL 15 - 65 pg/mL [facility] PTH-Intact [facility] 07-14 Parathyrin.intact [Mass/Vol] 37 pg/mL Normal 15-65 [facility] Comment on above: Order Comment: Speci men Type: BLOOD SPECIMENOrdering Facility: [facility] Address: [address] [place] [address] Performed By: #### 2 143-6, 2731-8, 2157-6 ####[facility] LABIA [id number] [place] [address] [place] VOLTAGE-GATED POTASSIUM WELLS ABon 08-03-2023 VOLTAGE-GATED POTASSIUM CHANNEL AB, SER 0 pmol/L Normal 0-31 [facility] Comment on above: Order Comment: Speci men Type: BLOOD SPECIMENOrdering Facility: [facility] Address: [address] [place] [address] Result Comment: INTE RPRETIVE INFORMATION: Voltage-Gated Potassium Channel (VGKC) Antibody, Serum Negative ....... 31 pmol/L or less Indeterminate... 32 - 87 pmol/L Positive ....... 88 pmol/L or greaterVoltage-Gated Potassium Channel (VGKC) antibodies are associatedwith neuromuscular weakness as found in neuromyotonia (also knownas Issacs syndrome) and Morvan syndrome. VGKC antibodies are alsoassociated with paraneoplastic neurological syndromes and limbicencephalitis; however, VGKC antibody-associated limbicencephalitis may be associated with antibodies to leucine-rich,glioma-inactivated 1 protein (LGI1) or xellrmwhx-xaluscrkwaukrgbpv-3 (CASPR2) instead of potassium channel antigens. Asubstantial number of VGKC-antibody positive cases are negativefor LGI1 and CASPR2 IgG autoantibodies, not all VGKC complexantigens are known. The clinical significance of this test canonly be determined in conjunction with the patient's clinicalhistory and related laboratory testing.This test was developed and its performance characteristicsdetermined by [employer]. It has not been cleared orapproved by the [place] Food and Drug Administration. This test wasperformed in a CLIA certified laboratory and is intended forclinical purposes.Performed By: [facility] [employer] [facility] [employer] [place], [place] [address]Mhnyjwmmvt Director: Adela Parsons MD, PhDCLIA Number: [id number] Performed By: #### V GKCAB ####[facility] [employer] Automated SystemsIA [id number] [place] [address] XR CHEST 1V FRONTAL PORTon 0 08-03-2023 XR CHEST 1V FRONTAL PORT * * *Final Report* * * DATE OF EXAM: Aug 03 2023 7:02PM VHX [id number] - XR CHEST 1V FRONTAL PORT / PROCEDURE REASON: Shortness of breath * * * * Physician Interpretation * * * * EXAMINATION: CHEST RADIOGRAPH (PORTABLE SINGLE VIEW AP) Exam Date/Time: 08/03/2023 7:02 PM CLINICAL HISTORY: Shortness of breath MQ: XCPR_5 Comparison: None. RESULT: Lines, tubes, and devices: None. Lungs and pleura: The lungs are clear. The pleural margins appear normal. Cardiomediastinal silhouette: Unremarkable cardiomediastinal silhouette. Other: The visualized bony thorax appears unremarkable. IMPRESSION: Unremarkable exam with no evidence of acute disease. Frame Assembler: AIDEN Velasquezribe Date/Time: Aug 03 2023 7:07P Dictated by : SARA SANTIAGO MD This examination was interpreted and the report reviewed and electronically signed by: SARA SANTIAGO MD on Aug 03 2023 7:08PM EST [id number] Normal [facility] CNOVon 08-01-2023 CNOV Normal [facility] CNTHERAPYon 07-31-2023 CNTHERAPY Normal [facility] THERAPY NTon 07-31-2023 THERAPY NT Normal [facility] CNOVon 07-27-2023 CNOV Normal [facility] [id number] 07-27-2023 ECG01 Normal [facility] CNTHERAPYon 07-24-2023 CNTHERAPY Normal [facility] Ferritinon 07-21-2023 Ferritin [Mass/Vol] 73 ng/mL 13 - 150 ng/mL [facility] Ferritin [Mass/Vol] 73 ng/mL Normal 13-150 [facility] Comment on above: Performed By: #### V AGP #### [id number] [place], [place] [id number] Outside Operator: Ramin Fenton MD [facility] [address] [place] [address] [place] [address] Outside Operator: Priscila Alvarenga MD Iron Binding Cap.on 07-21-19 24 % Fe Saturation 37 % Normal 20-55 [facility] Comment on above: Performed By: #### V D25, FERI, B12FOL, FEBC #### [id number] [place], [place] [id number] Outside Operator: Ramin Fenton MD #### CBC, TSH, CP #### [facility] [address] [place] [address] Outside Operator: Priscila Alvarenga MD Iron [Mass/Vol] 86 ug/dL Normal 37-145 [facility] Comment on above: Performed By: #### V D25, FERI, B12FOL, FEBC #### [address] [place] [address] Outside Operator: Ramin Fenton MD #### CBC, TSH, CP #### [facility] [address] [place] [address] [place] [address] Outside Operator: Priscila Alvarenga MD Total Fe Binding Cap 235 ug/dL Low 250-450 [facility] Comment on above: Performed By: #### V D25, FERI, B12FOL, FEBC #### [facility] [address] [place], [place] [phone] Outside Operator: Ramin Fenton MD #### CBC, TSH, CP #### [facility] [address] [place] [address] [place] [address] Outside Operator: Priscila Alvarenga MD Unbound Fe Bind Cap 149 ug/dL Normal 112-347 [facility] Comment on above: Performed By: #### V D25, FERI, B12FOL, FEBC #### [facility] [address] [place], [place] [phone] Outside Operator: Ramin Fenton MD #### CBC, TSH, CP #### [facility] [address] [place] [address] [place] [address] Outside Operator: Priscila Alvarenga MD Iron and TIBCon 07-21-2023 Iron [Mass/Vol] 86 ug/dL 37 - 145 ug/dL [facility] Iron binding capacity [Mass/Vol] 235 ug/dL Low 250 - 450 ug/dL [facility] Iron saturation [Mass fraction] 37 % 20 - 55 % [facility] UIBC 149 ug/dL 112 - 347 ug/dL [facility] No Panel Informationon 07-21 Interpretation and review of laboratory results Abnormal [facility] Vitamin D 25 Hydroxyon 07-21 25-hydroxyvitamin D3 [Mass/Vol] 18.9 ng/mL Low 29.9 - PINF ng/mL [facility] Comment on above: Reference Range: Vitamin D status Range Deficiency <20 ng/mL Mild Deficiency 20-30 ng/mL Sufficiency 30-100 ng/mL Toxicity >100 ng/mL Vitamin D 25 OHon 07-21-2023 Vitamin D 25 OH 18.9 ng/mL Low >29.9 [facility] Comment on above: Result Comment: Reference Range: Vitamin D status Range Deficiency <20 ng/mL Mild Deficiency 20-30 ng/mL Sufficiency 30-100 ng/mL Toxicity >100 ng/mL Performed By: #### V AGP #### [address] [address] Outside Operator: Ramin Fenton MD [facility] [address] [place] [address] [place] [address] Outside Operator: Priscila Alvarenga MD B12/Folate Panelon Cobalamin (Vitamin B12) [Mass/Vol] 273 pg/mL Normal 232-1245 [facility] Comment on above: Performed By: #### V D25, FERI, B12FOL, FEBC #### [address] [address] Outside Operator: Ramin Fenton MD #### ROBERT, TSH, CP #### [facility] [address] [place] [address] [place] [address] Outside Operator: Priscila Alvarenga MD Folic Acid >20.0 Normal >4.8 [facility] Comment on above: Performed By: #### V D25, FERI, B12FOL, FEBC #### [address] [address] Outside Operator: Ramin Fenton MD #### ROBERT TSH, CP #### [facility] [address] [place] [address] [place] [address] Outside Operator: Priscila Alvarenga MD CBCon 07-20-2023 Erythrocyte distribution width (RBC) [Ratio] 12.9 % 11.8 - 14.4 % [facility] Hematocrit (Bld) [Volume fraction] 39.4 % 36.3 - 47.1 % [facility] Hemoglobin (Bld) [Mass/Vol] 13.3 g/dL 11.9 - 15.1 g/dL [facility] MCH (RBC) [Entitic mass] 30.0 pg 25.2 - 33.5 pg [facility] MCHC (RBC) [Mass/Vol] 33.8 g/dL 28.4 - 34.8 g/dL [facility] MCV (RBC) [Entitic vol] 88.7 fL 82.6 - 102.9 fL [facility] Nucleated RBC/100 WBC (Bld) [Ratio] 0.0 % 0.0 per 100 WBC [facility] Platelet mean volume (Bld) [Entitic vol] 10.5 fL 8.1 - 13.5 fL [facility] Platelets (Bld) [#/Vol] 314 10*3/uL [facility] RBC (Bld) [#/Vol] 4.44 10*6/uL 3.95 - 5.1 1 m/uL [facility] WBC other (Bld) [#/Vol] 7.2 [facility] Erythrocyte distribution width (RBC) [Ratio] 12.9 % Normal 11.8-14.4 [facility] Comment on above: Performed By: #### V D25, FERI, B12FOL, FEBC #### [facility] [employer] [address] [place] [address] [phone] Outside Operator: Ramin Fenton MD #### CBC, TSH, CP #### [facility] [address] [place] [address] Outside Operator: Priscila Alvarenga MD Hematocrit (Bld) [Volume fraction] 39.4 % Normal 36.3-47.1 [facility] Comment on above: Performed By: #### V D25, FERI, B12FOL, FEBC #### [facility] [employer] [facility] [place], [place] [phone] Outside Operator: Ramin Fenton MD #### CBC, TSH, CP #### [address] [place] [address] Outside Operator: Priscila Alvarenga MD Hemoglobin (Bld) [Mass/Vol] 13.3 g/dL Normal 11.9-15.1 [facility] Comment on above: Performed By: #### V D25, FERI, B12FOL, FEBC #### [address] [phone] Outside Operator: Ramin Fenton MD #### CBC, TSH, CP #### [address] [place] [address] Outside Operator: Priscila Alvarenga MD MCH (RBC) [Entitic mass] 30.0 pg Normal 25.2-33.5 [facility] Comment on above: Performed By: #### V D25, FERI, B12FOL, FEBC #### [address] [phone] Outside Operator: Ramin Fenton MD #### CBC, TSH, CP #### [address] [place] [address] Outside Operator: Priscila Alvarenga MD MCHC (RBC) [Mass/Vol] 33.8 g/dL Normal 28.4-34.8 [facility] Comment on above: Performed By: #### V D25, FERI, B12FOL, FEBC #### [address] [phone] Outside Operator: Ramin Fenton MD #### CBC, TSH, CP #### [address] [place] [address] Outside Operator: Priscila Alvarenga MD MCV (RBC) [Entitic vol] 88.7 fL Normal 82.6-102.9 [facility] Comment on above: Performed By: #### V D25, FERI, B12FOL, FEBC #### [id number] [place] [address] Outside Operator: Ramin Fenton MD #### CBC, TSH, CP #### [address] [place], [place] [phone] Outside Operator: Priscila Alvarenga MD NRBC Automated 0.0 per 100 WBC Normal 0.0 [facility] Comment on above: Performed By: #### V D25, FERI, B12FOL, FEBC #### [address] [address] Outside Operator: Ramin Fenton MD #### CBC, TSH, CP #### [address] [place], [place] [phone] Outside Operator: Priscila Alvarenga MD Platelet mean volume (Bld) [Entitic vol] 10.5 fL Normal 8.1-13.5 [facility] Comment on above: Performed By: #### V D25, FERI, B12FOL, FEBC #### [address] [address] Outside Operator: Ramin Fenton MD #### CBC, TSH, CP #### [address] [place], [place] [phone] Outside Operator: Priscila Alvarenga MD Platelets (Bld) [#/Vol] 314 10*3/uL Normal 138-453 [facility] Comment on above: Performed By: #### V D25, FERI, B12FOL, FEBC #### [address] [address] Outside Operator: Ramin Fenton MD #### CBC, TSH, CP #### [address] [place], [place] [phone] Outside Operator: Priscila Alvarenga MD RBC (Bld) [#/Vol] 4.44 10*6/uL Normal 3.95-5.11 [facility] Comment on above: Performed By: #### V D25, FERI, B12FOL, FEBC #### [address] [address] Outside Operator: Ramin Fenton MD #### CBC, TSH, CP #### [address] [place] [address] Outside Operator: Priscila Alvarenga MD WBC (Bld) [#/Vol] 7.2 10*3/uL Normal 3.5-11.3 [facility] Comment on above: Performed By: #### V D25, FERI, B12FOL, FEBC #### [address] [address] Outside Operator: Ramin Fenton MD #### CBC, TSH, CP #### [address] [place], [place] [phone] Outside Operator: Priscila Alvarenga MD Comp Metabolic Profon 2023 Albumin [Mass/Vol] 4.3 g/dL Normal 3.5-5.2 [facility] Comment on above: Performed By: #### V D25, FERI, B12FOL, FEBC #### [address] [address] Outside Operator: Ramin Fenton MD #### CBC, TSH, CP #### [address] [place] [address] Outside Operator: Priscila Alvarenga MD Albumin/Glob Ratio 1.6 Normal 1.0-2.5 [facility] Comment on above: Performed By: #### V D25, FERI, B12FOL, FEBC #### [address] [address] Outside Operator: Ramin Fenton MD #### CBC, TSH, CP #### [address] [place], [place] [phone] Outside Operator: Priscila Alvarenga MD Alkaline Phos 71 U/L Normal 35-104 [facility] Comment on above: Performed By: #### V D25, FERI, B12FOL, FEBC #### [address] [address] Outside Operator: Ramin Fenton MD #### CBC, TSH, CP #### [address] [place], [place] [phone] Outside Operator: Priscila Alvarenga MD ALT [Catalytic activity/Vol] 12 U/L Normal 5-33 [facility] Comment on above: Performed By: #### V D25, FERI, B12FOL, FEBC #### [address] [address] Outside Operator: Ramin Fenton MD #### CBC, TSH, CP #### [address] [place], [place] [phone] Outside Operator: Priscila Alvarenga MD Anion gap [Moles/Vol] 8 mmol/L Low 9-17 [facility] Comment on above: Performed By: #### V D25, FERI, B12FOL, FEBC #### [address] [address] Outside Operator: Ramin Fenton MD #### CBC, TSH, CP #### [address] [place], [place] [phone] Outside Operator: Priscila Alvarenga MD AST [Catalytic activity/Vol] 12 U/L Normal <32 [facility] Comment on above: Performed By: #### V D25, FERI, B12FOL, FEBC #### [address] [address] Outside Operator: Ramin Fenton MD #### CBC, TSH, CP #### [facility] [address] [place], [place] [phone] Outside Operator: Priscila Alvarenga MD Bilirubin [Mass/Vol] 0.6 mg/dL Normal 0.3-1.2 [facility] Comment on above: Performed By: #### V D25, FERI, B12FOL, FEBC #### [address] [address] Outside Operator: Ramin Fenton MD #### CBC, TSH, CP #### [facility] [address] [place] [address] Outside Operator: Priscila Alvarenga MD BUN/CRE Ratio 12 Normal 9-20 [facility] Comment on above: Performed By: #### V D25, FERI, B12FOL, FEBC #### [address] [address] Outside Operator: Ramin Fenton MD #### CBC, TSH, CP #### [address] [place] [address] Outside Operator: Priscila Alvarenga MD Calcium [Mass/Vol] 8.9 mg/dL Normal 8.6-10.4 [facility] Comment on above: Performed By: #### V D25, FERI, B12FOL, FEBC #### [address] [address] Outside Operator: Ramin Fenton MD #### CBC, TSH, CP #### [address] [place] [address] Outside Operator: Priscila Alvarenga MD Chloride [Moles/Vol] 101 mmol/L Normal 98-107 [facility] Comment on above: Performed By: #### V D25, FERI, B12FOL, FEBC #### [address] [address] Outside Operator: Ramin Fenton MD #### CBC, TSH, CP #### [facility] [address] [place] [address] Outside Operator: Priscila Alvarenga MD CO2 [Moles/Vol] 25 mmol/L Normal 20-31 [facility] Comment on above: Performed By: #### V D25, FERI, B12FOL, FEBC #### [address] [phone] Outside Operator: Ramin Fenton MD #### CBC, TSH, CP #### [facility] [address] [place] [address] Outside Operator: Priscila Alvarenga MD Creatinine [Mass/Vol] 0.6 mg/dL Normal 0.5-0.9 [facility] Comment on above: Performed By: #### V D25, FERI, B12FOL, FEBC #### [address] [phone] Outside Operator: Ramin Fenton MD #### CBC, TSH, CP #### [address] [place] [address] Outside Operator: Priscila Alvarenga MD GFR/1.73 sq M.predicted among non-blacks MDRD (S/P/Bld) [Vol rate/Area] mL/min/{1.73_m2} Normal >60 [facility] Comment on above: Result Comment: These results are not intended for use in patients <18 years of age. eGFR results are calculated without a race factor using the 2020 CKD-EPI equation. Careful clinical correlation is recommended, particularly when comparing to results calculated using previous equations. The CKD-EPI equation is less accurate in patients with extremes of muscle mass, extra-renal metabolism of creatine, excessive creatine ingestion, or following therapy that affects renal tubular secretion. Performed By: #### V D25, FERI, B12FOL, FEBC #### [address] [phone] Outside Operator: Ramin Fenton MD #### CBC, TSH, CP #### [address] [place] [address] Outside Operator: Priscila Alvarenga MD Glucose [Mass/Vol] 76 mg/dL Normal 70-99 [facility] Comment on above: Performed By: #### V D25, FERI, B12FOL, FEBC #### [address] [phone] Outside Operator: Ramin Fenton MD #### CBC, TSH, CP #### [address] [place] [address] Outside Operator: Priscila Alvarenga MD Potassium [Moles/Vol] 4.1 mmol/L Normal 3.7-5.3 [facility] Comment on above: Performed By: #### V D25, FERI, B12FOL, FEBC #### [address] [phone] Outside Operator: Ramin Fenton MD #### CBC, TSH, CP #### [address] [place], [place] [phone] Outside Operator: Priscila Alvarenga MD Protein [Mass/Vol] 7.0 g/dL Normal 6.4-8.3 [facility] Comment on above: Performed By: #### V D25, FERI, B12FOL, FEBC #### [address] [phone] Outside Operator: Ramin Fenton MD #### CBC, TSH, CP #### [address] [place] [address] Outside Operator: Priscila Alvarenga MD Sodium [Moles/Vol] 134 mmol/L Low 135-144 [facility] Comment on above: Performed By: #### V D25, FERI, B12FOL, FEBC #### [facility] [address] [place], [place] [phone] Outside Operator: Ramin Fenton MD #### CBC, TSH, CP #### [facility] [address] [place] [address] Outside Operator: Priscila Alvarenga MD Urea nitrogen [Mass/Vol] 7 mg/dL Normal 6-20 [facility] Comment on above: Performed By: #### V D25, FERI, B12FOL, FEBC #### [facility] [address] [place], [place] [phone] Outside Operator: Ramin Fenton MD #### ROBERT, TSH, CP #### [facility] [address] [place] [address] [place] [address] Outside Operator: Priscila Alvarenga MD Comprehensive Metabolic Pane [facility] 07-20-2023 Albumin [Mass/Vol] 4.3 g/dL 3.5 - 5.2 g/dL [facility] Albumin/Globulin [Mass ratio] 1.6 {ratio} 1.0 - 2.5 [facility] ALP [Catalytic activity/Vol] 71 U/L 35 - 104 U/L [facility] ALT [Catalytic activity/Vol] 12 U/L 5 - 33 U/L [facility] Anion gap [Moles/Vol] 8 mmol/L Low 9 - 17 mmol/L [facility] AST [Catalytic activity/Vol] 12 U/L NINF - 32 U/L [facility] Bilirubin [Mass/Vol] 0.6 mg/dL 0.3 - 1 .2 mg/dL [facility] Calcium [Mass/Vol] 8.9 mg/dL 8.6 - 10. 4 mg/dL [facility] Chloride [Moles/Vol] 101 mmol/L 98 - 10 7 mmol/L [facility] CO2 [Moles/Vol] 25 mmol/L 20 - 31 mmol/L [facility] Creatinine [Mass/Vol] 0.6 mg/dL 0.5 - 0.9 mg/dL [facility] GFR/1.73 sq M.predicted MDRD (S/P/Bld) [Vol rate/Area] - PINF [facility] Comment on above: These results are not intended for use in patients <18 years of age. eGFR results are calculated without a race factor using the 2020 CKD-EPI equation. Careful clinical correlation is recommended, particularly when comparing to results calculated using previous equations. The CKD-EPI equation is less accurate in patients with extremes of muscle mass, extra-renal metabolism of creatine, excessive creatine ingestion, or following therapy that affects renal tubular secretion. Glucose [Mass/Vol] 76 mg/dL 70 - 99 mg/dL [facility] Interpretation and review of laboratory results Abnormal [facility] Potassium [Moles/Vol] 4.1 mmol/L 3.7 - 5.3 mmol/L [facility] Protein [Mass/Vol] 7.0 g/dL 6.4 - 8.3 g/dL [facility] Sodium [Moles/Vol] 134 mmol/L Low 135 - 144 mmol/L [facility] Urea nitrogen [Mass/Vol] 7 mg/dL 6 - 20 mg/dL [facility] Urea nitrogen/Creatinine [Mass ratio] 12 mg/mg 9 - 20 [facility] No Panel Informationon 07-20 [facility] TSHon 07-20-2023 TSH Qn 0.84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 Date/Time: Mar 31 2023 10:02P Dictated by : KAREL ROSARIO MD This examination was interpreted and the report reviewed and electronically signed by: KAREL ROSARIO MD on Mar 31 2023 10:07PM EST [id number] Normal [facility] Urinalysis complete panel (U )on 03-31-2023 Bacteria LM.HPF (Urine sed) [#/Area] Moderate Abnormal None Seen [facility] Comment on above: Order Comment: Speci men Type: URINE SPECIMENOrdering Facility: [facility] Address: [address] [place] [address] Performed By: #### 2 4356-8 ####[facility] [id number] [place] [address] [place] Bilirubin Ql (U) Negative Normal Negative [facility] Comment on above: Order Comment: Speci men Type: URINE SPECIMENOrdering Facility: [facility] Address: [address] [place] [address] Performed By: #### 2 4356-8 ####[facility] [id number] [place] [address] [place] Clarity (Unsp spec) Clear Normal Clear [facility] Comment on above: Order Comment: Speci men Type: URINE SPECIMENOrdering Facility: [facility] Address: [address] [place] [address] Performed By: #### 2 4356-8 ####[facility] [id number] [place] [address] [place] Color (U) Light Yellow Normal yellow [facility] Comment on above: Order Comment: Speci men Type: URINE SPECIMENOrdering Facility: [facility] Address: [address] [place] [address] Performed By: #### 2 4356-8 ####[facility] [id number] [place] [address] [place] Epithelial cells LM.HPF (Urine sed) [#/Area] Few Normal [facility] Comment on above: Order Comment: Speci men Type: URINE SPECIMENOrdering Facility: [facility] Address: [address] [place] [address] Performed By: #### 2 4356-8 ####[facility] [id number] [place] [address] [place] Glucose Test strip (U) [Mass/Vol] Negative Normal Trace, Negative [facility] Comment on above: Order Comment: Speci men Type: URINE SPECIMENOrdering Facility: [facility] Address: [address] [place] [address] Performed By: #### 2 4356-8 ####[facility] [id number] [place] [address] [place] Hemoglobin Ql (U) 1+ Abnormal Negative, Trace [facility] Comment on above: Order Comment: Speci men Type: URINE SPECIMENOrdering Facility: [facility] Address: [address] [place] [address] Performed By: #### 2 4356-8 ####[facility] [id number] [place] [address] [place] Ketones Ql (U) Negative Normal Negative, Trace [facility] Comment on above: Order Comment: Speci men Type: URINE SPECIMENOrdering Facility: [facility] Address: [address] [place] [address] Performed By: #### 2 4356-8 ####[facility] [id number] [place] [address] [place] Leukocyte esterase Test strip Ql (U) 250 Charissa/uL Abnormal Negative, 25 Charissa/uL [facility] Comment on above: Order Comment: Speci men Type: URINE SPECIMENOrdering Facility: [facility] Address: [address] [place] [address] Performed By: #### 2 4356-8 ####[facility] [id number] [place] [address] [place] Nitrite Ql (U) Negative Normal Negative [facility] Comment on above: Order Comment: Speci men Type: URINE SPECIMENOrdering Facility: [facility] Address: [address] [place] [address] Performed By: #### 2 4356-8 ####[facility] [id number] [place] [address] [place] pH (U) 6.0 [pH] Normal 5.0-8.0 [facility] Comment on above: Order Comment: Speci men Type: URINE SPECIMENOrdering Facility: [facility] Address: [address] [place] [address] Performed By: #### 2 4356-8 ####[facility] [id number] [place] [address] [place] Protein (U) [Mass/Vol] Negative Normal Trace , Negative [facility] Comment on above: Order Comment: Speci men Type: URINE SPECIMENOrdering Facility: [facility] Address: [address] [place] [address] Performed By: #### 2 4356-8 ####[facility] [id number] [place] [id number] [place] RBC LM.HPF (Urine sed) [#/Area] 3-5 /HPF Abnormal 0-3 /HPF [facility] Comment on above: Order Comment: Speci men Type: URINE SPECIMENOrdering Facility: [facility] Address: [address] [place] [address] Performed By: #### 2 4356-8 ####[facility] [id number] [place] [address] [place] Specific gravity (U) [Rel density] 1.023 Normal 1.005-1.030 [facility] Comment on above: Order Comment: Speci men Type: URINE SPECIMENOrdering Facility: [facility] Address: [address] [place] [address] Performed By: #### 2 4356-8 ####[facility] [id number] [place] [address] [place] Urobilinogen Ql (U) Normal Normal Negative [facility] Comment on above: Order Comment: Speci men Type: URINE SPECIMENOrdering Facility: [facility] Address: [address] [place] [id number] Performed By: #### 2 4356-8 ####[facility] [id number] [place] [address] [facility] WBC LM.HPF (Urine sed) [#/Area] 6-10 /HPF Abnormal 0-5 /HPF [facility] Comment on above: Order Comment: Speci men Type: URINE SPECIMENOrdering Facility: [facility] Address: [address] [place] [address] Performed By: #### 2 4356-8 ####[facility] [id number] [place] [address] [place] Cult,Urineon 03-25-2023 Cult,Urine Specimen Description .CLEAN CATCH URINE Culture NO SIGNIFICANT GROWTH Report Status FINAL 03/25/2023 Normal [facility] Comment on above: Performed By: #### V AGP #### [address] [address] Outside Operator: Ramin Fenton MD [facility] [address] [place] [address] Outside Operator: Priscila Alvarenga MD Urinalysis w/ Microon 2022 Bacteria 3+ Abnormal NONE [facility] Comment on above: Performed By: #### U AMIC #### [facility] [address] [place] [address] Outside Operator: Priscila Alvarenga MD Bilirubin, SemiQt,Ur Negative Normal NEG [facility] Comment on above: Performed By: #### U AMIC #### [facility] [address] [place] [address] Outside Operator: Priscila Alvarenga MD Blood, Urine TRACE Abnormal NEG [facility] Comment on above: Performed By: #### U AMIC #### [facility] [address] [place] [address] Outside Operator: Priscila Alvarenga MD Clarity (U) Clear Normal CLEAR [facility] Comment on above: Performed By: #### U AMIC #### [facility] [address] [place], [place] [id number] Outside Operator: Priscila Alvarenga MD Color (U) Yellow Normal YEL [facility] Comment on above: Performed By: #### U AMIC #### [facility] [address] [place], [place] [phone] Outside Operator: Priscila Alvarenga MD Epithelial cells LM Ql (Urine sed) 10 TO 20 Normal 0-25 [facility] Comment on above: Performed By: #### U AMIC #### [facility] [address] [place] [address] Dr[place], [place] [id number] Outside Operator: Priscila Alvarenga MD Glucose Ql (U) Negative Normal NEG [facility] Comment on above: Performed By: #### U AMIC #### [facility] [address] [place] [address] [place], [place] [phone] Outside Operator: Priscila Alvarenga MD Ketones Ql (U) Negative Normal NEG [facility] Comment on above: Performed By: #### U AMIC #### [facility] [address] [place] [address] [place] [place], [place] [phone] Outside Operator: Priscila Alvarenga MD Leukocyte esterase Test strip Ql (U) MODERATE Abnormal NEG [facility] Comment on above: Performed By: #### U AMIC #### [facility] [address] [place] [address] [place], [place] [phone] Outside Operator: Priscila Alvarenga MD Nitrite,Ur Negative Normal NEG [facility] Comment on above: Performed By: #### U AMIC #### [facility] [address] [place] [address] [place] [place], [place] [address] Outside Operator: Priscila Alvarenga MD PH,Ur 6.0 Normal 5.0-9.0 [facility] Comment on above: Performed By: #### U AMIC #### [facility] [address] [place], [place] [address] Outside Operator: Priscila Alvarenga MD Protein Ql (U) Negative Normal NEG [facility] Comment on above: Performed By: #### U AMIC #### [facility] [address] [place], [place] [address] Outside Operator: Priscila Alvarenga MD Spec. [place],Ur 1.015 Normal 1.010-1.020 [facility] Comment on above: Performed By: #### U AMIC #### [facility] [address] [place], [place] [phone] Outside Operator: Priscila Alvarenga MD Urine RBC's 2 TO 5 Normal 0-2 [facility] Comment on above: Performed By: #### U AMIC #### [facility] [address] [place], [place] [address]83 Outside Operator: Priscila Alvarenga MD Urine WBC's 10 TO 20 Normal 0-5 [facility] Comment on above: Performed By: #### U AMIC #### [facility] [address] [place], [place] [address]383 Outside Operator: Priscila Alvarenga MD Urobilinogen,Ur Normal Normal 0.0-1.0 [facility] Comment on above: Performed By: #### U AMIC #### [facility] [address] [place], [place] [address] Outside Operator: Priscila Alvarenga MD CNPNon 03-08-2023 CNPN Normal [facility] CNOVon 02-02-2023 CNOV Normal [facility] MRI CERVICAL SPINE WO IVCONo n 01-25-2023 MRI CERVICAL SPINE WO IVCON Normal [facility] MRI THORACIC SPINE WO IVCONo n 01-25-2023 MRI THORACIC SPINE WO IVCON Normal [facility] No Panel Informationon 01-25 [facility] EMG(NEURO/NI)on 01-10-2023 [facility] CNOVon 01-02-2023 CNOV Normal [facility] MR BRAIN WITH AND WITHOUT CO NTRASTon 12-22-2022 MR BRAIN WITH AND WITHOUT CONTRAST EXAMINATION: MR BRAIN WITH AND WITHOUT CONTRAST HISTORY: ORDERING SYSTEM PROVIDED HISTORY: Lower-half facial migraine, TECHNOLOGIST PROVIDED HISTORY: Illness/Other Reason for exam: right eye peripheral vision loss, occular migraines, weakness, sx since 2020 Encounter Type: Ongoing Additional signs and symptoms: n ORDERING SYSTEM PROVIDED DIAGNOSIS CODES: 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 TECHNIQUE: Multiplanar, multisequence MR imaging of the head was performed prior to and following administration of intravenous contrast. CONTRAST: GADOTERATE MEGLUMINE 0.5 MMOL/ML (376.9 MG/ML) INTRAVENOUS SOLUTION - 17 mL, FINDINGS: No restricted diffusion. No acute hemorrhage, mass effect, midline shift or extraaxial fluid collection. No ventriculomegaly. Expected flow voids are noted within the intracranial internal carotid, vertebral and basilar arteries. The cerebellopontine angles and internal auditory canals are unremarkable. The pituitary gland and midline structures are unremarkable. Bone marrow signal is within normal limits. The orbits and globes are unremarkable. Expected signal voids are seen with paranasal sinuses and mastoid air cells. Extraocular muscles and optic nerve sheath complexes are unremarkable in course, caliber, contour and signal. No discrete orbital mass, cyst or acute inflammatory changes. The optic chiasm is unremarkable. No parasellar mass or cyst. Cavernous sinus regions are unremarkable. No abnormal enhancement. There is prominent vascular enhancement within the left and right cerebellar hemispheres which appears to reflect a small developmental venous anomaly, particularly on the coronal images. IMPRESSION: No acute infarct, mass effect or evidence of hemorrhage. HA/max Workstation ID: [id number] Dictated by: PRISCILA BASS on MonDec 23, 2022 8:59:55 AM EDT Transcribed by: JUAN CUBA on MonDec 23, 2022 9:10:59 AM EDT Finalized by: PRISCILA BASS on MonDec 23, 2022 4:34:22 PM EDT Normal [facility] Comment on above: Order Comment: PT/FA X, WANAQUE Injury/Trauma or Illness?:Illness/Other How long have you had these symptoms (acute/chronic)?:Chronic Reason for exam?:right eye peripheral vision loss, occular migraines, weakness, sx since 2020 Type of Exam?:Ongoing Additional signs and symptoms?:n CK CREATINE KINASEon 023 CK [Catalytic activity/Vol] 41 U/L Low 42 - 196 U/L [facility] CK SerPl-cCncon 12-21-2022 CK [Catalytic activity/Vol] 41 U/L Low 42-196 [facility] Comment on above: Order Comment: Speci men Type: BLOOD SPECIMENOrdering Facility: [facility] Address: [address] [place] [address] Performed By: #### 2 284-8, 2132-9, 2157-6 ####[facility] [id number] [place] [address] [place] CNOVon 12-21-2022 CNOV Normal [facility] COPPER BLOODon 12-21-2022 Copper [Mass/Vol] 140 ug/dL Normal 80-155 [facility] Comment on above: Order Comment: Speci men Type: BLOOD SPECIMENOrdering Facility: [facility] Address: [address] [place] [address] Performed By: #### 5 763-8, COPPER ####[facility] [id number] [place] [address] [place] FOLATE SERUMon 12-21-2022 Folate [Mass/Vol] >4.7 ng/mL [facility] Folate SerPl-mCncon 12-22-19 23 Folate [Mass/Vol] ng/mL Normal >4.7 [facility] Comment on above: Order Comment: Speci men Type: BLOOD SPECIMENOrdering Facility: [facility] Address: [address] [place] [address] Result Comment: A re sult of > 20 ng/mL is not necessarily indicative of a pathologic or treatable condition: it reflects a limitation of the test methodology.Assay reference range: 4.8 to 24.2 ng/mL. Suitable for detection of folate deficiency.Reference:Folate III (Folate III) [package insert V 1.0 [place]e]. [facility], [place], [place]: April 2015. Performed By: #### 2 284-8, 2132-9, 2157-6 ####[facility] [id number] [place] [address] [place] [facility] [place] HOMOCYSTEINEon 12-21-2022 Homocysteine [Moles/Vol] 6.3 umol/L <15.1 umol/L [facility] Hcys SerPl-sCncon 12-21-2022 Homocysteine [Moles/Vol] 6.3 umol/L Normal <15.1 [facility] Comment on above: Order Comment: Speci men Type: BLOOD SPECIMENOrdering Facility: [facility] Address: [address] [place] [address] Performed By: #### 1 3965-9 ####[facility] [id number] [address] Methylmalonate SerPl-sCncon 12-21-2022 Methylmalonate [Moles/Vol] 188 nmol/L Normal 79-376 [facility] Comment on above: Order Comment: Speci men Type: BLOOD SPECIMENOrdering Facility: [facility] Address: [address] [place], [place] [id number] Result Comment: This test was developed and its performance characteristics determined by [facility]'s Ezra Hansen [facility] Pathology [facility] [place] ([facility]). It has not been cleared or approved by the FDA. [facility] is regulated under CLIA as qualified to perform high-complexity testing. This test is used for clinical purposes. It should not be regarded as investigational or for research. Performed By: #### 1 3964-2 ####[facility] [id number] [address] [place] VITAMIN B12 BLOODon 12-22-19 23 Cobalamin (Vitamin B12) [Mass/Vol] 410 pg/mL 232 - 1,245 pg/mL [facility] VITAMIN B6/PYRIDOXINon 12-21 VITAMIN B6 38.1 nmol/L Normal 20.0-125.0 [facility] Comment on above: Order Comment: Speci men Type: BLOOD SPECIMENOrdering Facility: [facility] Address: [address] [place] [address] Result Comment: INTE RPRETIVE INFORMATION: Vitamin B6 (Pyridoxal 5-Phosphate)Pyridoxal 5'-phosphate measured in a specimen collected followingan 8-hour or overnight fast accurately indicates vitamin Y8invzzggwjhx status. Non-fasting specimen concentration reflectsrecent vitamin intake.This test was developed and its performance characteristicsdetermined by [facility]. It has not been cleared orapproved by the [place] Food and Drug Administration. This test wasperformed in a CLIA certified laboratory and is intended forclinical purposes.Performed By: [facility] [place], [place] [address]Gwpfnomuxf Director: Adela Parsons MD, PhD Performed By: #### V ITB6 ####[facility] [id number] [place] [address] Vit B12 SerPl-mCncon 023 Cobalamin (Vitamin B12) [Mass/Vol] 410 pg/mL Normal 232-1245 [facility] Comment on above: Order Comment: Speci men Type: BLOOD SPECIMENOrdering Facility: [facility] Address: [place] [address] Performed By: #### 2 284-8, 2132-9, 2157-6 ####[facility] [id number] [place] [address] [place] Zinc SerPl-mCncon 12-21-2022 Zinc [Mass/Vol] 78 ug/dL Normal 60-120 [facility] Comment on above: Order Comment: Speci men Type: BLOOD SPECIMENOrdering Facility: [facility] Address: [place] [address] Result Comment: This test was developed and its performance characteristics determined by [facility]'s [facility] [place] ([facility]). It has not been cleared or approved by the FDA. [facility] is regulated under CLIA as qualified to perform high-complexity testing. This test is used for clinical purposes. It should not be regarded as investigational or for research. Performed By: #### 5 763-8, COPPER ####[facility] [id number] [place] [address] [place] ANTI NEUTRO CYTO ABon 2022 INTERPRETATION (ANCA) Negative for C-ANC A and P-ANCA by indirect immunofluorescence. Normal [facility] Comment on above: Order Comment: Speci men Type: BLOOD SPECIMENOrdering Facility: [facility] Address: [address] [place] [address] Performed By: #### A NCA ####[facility] [id number] [place] [address] [place] Neutrophil cytoplasmic Ab.classic IF Ql (S) Negative Normal Negative [facility] Comment on above: Order Comment: Speci men Type: BLOOD SPECIMENOrdering Facility: [facility] Address: [address] [place] [address] Performed By: #### A NCA ####[facility] [id number] [address] [place] Neutrophil cytoplasmic Ab.perinuclear IF Ql (S) Negative Normal Negative [facility] Comment on above: Order Comment: Speci men Type: BLOOD SPECIMENOrdering Facility: [facility] Address: [address] [place] [address] Performed By: #### A NCA ####[facility] [id number] [address] [place] STAFF REVIEW (ANCA) No review performed. Normal [facility] Comment on above: Order Comment: Speci men Type: BLOOD SPECIMENOrdering Facility: [facility] Address: [address] [place] [address] Performed By: #### A NCA ####[facility] [id number] [place] [address] [place] CNOVon 12-15-2022 CNOV Normal [facility] IGA BLDon 12-15-2022 IgA [Mass/Vol] 254 mg/dL 70 - 400 mg/dL [facility] IgA SerPl-mCncon 12-15-2022 IgA [Mass/Vol] 254 mg/dL Normal 70-400 [facility] Comment on above: Order Comment: Speci men Type: BLOOD SPECIMENOrdering Facility: [facility] Address: [address] [place] [address] Performed By: #### 2 458-8 ####[facility] [id number] [address] [place] VITAMIN B12 BLOODon 12-16-19 23 Cobalamin (Vitamin B12) [Mass/Vol] 435 pg/mL 232 - 1,245 pg/mL [facility] Vit B12 SerPl-mCncon 023 Cobalamin (Vitamin B12) [Mass/Vol] 435 pg/mL Normal 232-1245 [facility] Comment on above: Order Comment: Speci men Type: BLOOD SPECIMENOrdering Facility: [facility] Address: [address] [place] [address] Performed By: #### 2 132-9 ####[facility] [id number] [address] [place] tTG IgA Qn (S)on 12-15-2022 TRANSGLUTAMINASE IGA ABS INTERPRETATION Negative Normal Negative [facility] Comment on above: Order Comment: Speci men Type: BLOOD SPECIMENOrdering Facility: [facility] Address: [address] [place] [address] Result Comment: The following results were obtained with [employer] L[employer] R h-tTG IgA MILAN.???R h-tTG IgA values obtained with different manufacturers' assay methods may not be used interchangeably. The magnitude of the reported IgA levels cannot be correlated to an endpoint???concentration.This is used as an aid in diagnosis of celiac disease. Clinical correlation is required. Performed By: #### 3 2998-7, 55344-2 ####[facility] [id number] [address] [place] tTG IgA Ser-aCncon 3 tTG IgA Qn (S) <2 Normal <4 [facility] Comment on above: Order Comment: Speci men Type: BLOOD SPECIMENOrdering Facility: [facility] Address: [address] [place] [address] Performed By: #### 3 2998-7, 67404-7 ####[facility] [id number] [address] tTG IgG Qn (S)on 12-15-2022 TRANSGLUTAMINASE IGG ABS INTERPRETATION Negative Normal Negative [facility] Comment on above: Order Comment: Speci men Type: BLOOD SPECIMENOrdering Facility: [facility] Address: [address] [place] [address] Result Comment: The following results were obtained with [employer] Lite R h-tTG IgG MILAN.???R h-tTG IgG values obtained with different manufacturers' assay methods may not be used interchangeably. The magnitude of the reported IgG levels cannot be correlated to an endpoint???concentration.This test is used as an aid in diagnosis of celiac disease in IgA-deficient individuals only. Clinical correlation is required. Performed By: #### 3 2998-7, 67043-0 ####[facility] [id number] [address] [place] tTG IgG Ser-aCncon 3 tTG IgG Qn (S) 3 U/mL Normal <6 [facility] Comment on above: Order Comment: Speci men Type: BLOOD SPECIMENOrdering Facility: [facility] Address: [address] [place] [address] Performed By: #### 3 2998-7, 23248-6 ####[facility] [id number] [place] [id number] [place] [facility] EVENT MONITORon 11-21-[address] [address] EVENT MONITOR PATIENT NAME: BETHANIE DINERO : 1990 MED REC NO: [id number] ROOM: ACCOUNT NO: [id number] ADMIT DATE: 11/10/2022 PROVIDER: Kristina Jacobs MD CARDIOVASCULAR DIAGNOSTIC DEPARTMENT DATE OF STUDY: 11/10/2022 ORDERING PROVIDER: Kristina Jacobs MD PRIMARY CARE PROVIDER: Kavita Gama CNP INTERPRETING PHYSICIAN: Kristina Jacobs MD DIAGNOSIS: Palpitations. PHYSICIAN INTERPRETATION: Findings Summary 1. Predominant rhythm: Normal sinus rhythm. 2. PAC <0.1%. 3. PVC 1.5% Three days and 13 hours recorded. Baseline rhythm is sinus with average heart rate of 70 bpm, ranging between 45 and 149 bpm. Sinus tachycardia represented 6% of the study duration. No severe bradycardia or pauses. Rare isolated premature atrial contractions and occasional isolated premature ventricular contractions noted. Overall fairly unremarkable study. KRISTINA JACOBS MD DANNA/JUAN_[facility] Doc#: Unknown CC: Kavita Gama, NUTTER UP-RN CARDIOLOGY Normal [facility] C-Reactive Proteinon 023 CRP High sensitivity method [Mass/Vol] mg/L 0.0 - 5.0 mg/L [facility] Rheumatoid Factoron 11-15-19 23 Rheumatoid factor Nephelometry Qn (S) <10 NINF [facility] Sedimentation Rateon 023 ESR (Bld) [Velocity] 10 mm/h [facility] Echo 2D w doppler w color co mpleteon 11-10-2022 [facility] Transthoracic Echocardiography Report (TTE) Patient Name COOK AERIEL Date of Study 11/10/2022 G Date of 1990 Gender Female Age 32 year(s) Race Room Number Height: 67 inch, 170.18 cm Corporate ID [id number] Weight: 182 pounds, 82.6 kg # Patient Acct [id number] BSA: 1.94 m^2 BMI: 28.51 # kg/m^2 MR # [id number] Voice Pathologist Dena Tamayo Interpreting Physician Kristina Jacobs Referring Nurse Practitioner Interpreting Referring Physician Kristina Jacobs Type of Study TTE procedure:2D Echocardiogram, M-Mode, Doppler, Color Doppler. Procedure Date Date: 11/10/2022 Start: 02:02 PM Study Location: [facility] Indications:Palpitation s, Chest pain, Dyspnea/SOB, Lightheadedness, Dizziness and Visual field changes. History / Tech. Comments: Dx: palpitations, lightheadedness, dizziness, chest tightness, dyspnea, vision changes Hx: POTS, breast augmentation Patient Status: Outpatient Height: 67 inches Weight: 182 pounds BSA: 1.94 m^2 BMI: 28.51 kg/m^2 BP: 122/84 mmHg CONCLUSIONS Summary Relatively normal 2D echocardiogram with Doppler imaging. Normal cardiac chamber sizes and function. No significant valvular abnormalities. No pericardial effusion. No prior studies were available for comparison. Signature ------- ------- ------- ------- FINDINGS Left Atrium Left atrium is normal in size. Left Ventricle Global left ventricular systolic function appears preserved with an estimated ejection fraction of > 65%. The left ventricular cavity size is within normal limits and the left ventricular wall thickness is within normal limits. No definite specific wall motion abnormalities were identified. Right Atrium Right atrium is normal in size. Right Ventricle Normal right ventricular size and function. Mitral Valve Normal mitral valve structure and function. Aortic Valve Normal aortic valve structure and function without stenosis or regurgitation. Tricuspid Valve Normal tricuspid valve structure and function. Pulmonic Valve The pulmonic valve is normal in structure. Pericardial Effusion No significant pericardial effusion is seen. Miscellaneous No clear evidence of diastolic dysfunction was identified. Normal aortic root dimension. M-mode / 2D Measurements & Calculations: LVIDd:4.63 cm(3.7 - 5.6 cm) Diastolic Volume:72.69695 ml LVIDs:3.07 cm(2.2 - 4.0 cm) Systolic Volume:20.28 ml IVSd:0.89 cm(0.6 - 1.1 cm) Aortic Root:2.84 cm(2.0 - 3.7 cm) LVPWd:0.86 cm(0.6 - 1.1 cm) LA Dimension: 3.48 cm(1.9 - 4.0 cm) Fractional Shortenin.69 % LA volume/Index: 37.4 ml /19m^2 Calculated LVEF (%): 72.07 % AV Cusp Separation: 1.67 cm Mitral: Aortic Valve Area (P1/2-Time): 4.5 cm^2 Peak Velocity: 1.20 m/s Peak E-Wave: 0.78 m/s Mean Velocity: 0.91 m/s Peak A-Wave: 0.73 m/s Peak Gradient: 5.74 mmHg E/A Ratio: 1.07 Mean Gradient: 3.62 mmHg Peak Gradient: 2.45 mmHg Acceleration Time: 44.2 msec P1/2t: 48.87 msec AV VTI: 20.22 cm Diastology / Tissue Doppler Lateral Wall E' velocity:0.17 m/s Lateral Wall E/E':4.97 [facility]PN [facility] Kristina Jacobs MD - 11/10/2022 [facility] Transthoracic Echocardiography Report (TTE) Patient Name GLENN BENNETT Date of Study 11/10/2022 G Date of 1990 Gender Female Age 32 year(s) Race Room Number Height: 67 inch, 170.18 cm Corporate ID [id number] Weight: 182 pounds, 82.6 kg # Patient Acct [id number] BSA: 1.94 m^2 BMI: 28.51 # kg/m^2 MR # [id number] Voice Pathologist Work,Dena Interpreting Physician Kristina Jacobs Referring Nurse Practitioner Interpreting Referring Physician Kristina Jacobs Type of Study TTE procedure:2D Echocardiogram, M-Mode, Doppler, Color Doppler. Procedure Date Date: 11/10/2022 Start: 02:02 PM Study Location: [facility] Indications:Palpitation s, Chest pain, Dyspnea/SOB, Lightheadedness, Dizziness and Visual field changes. History / Tech. Comments: Dx: palpitations, lightheadedness, dizziness, chest tightness, dyspnea, vision changes Hx: POTS, breast augmentation Patient Status: Outpatient Height: 67 inches Weight: 182 pounds BSA: 1.94 m^2 BMI: 28.51 kg/m^2 BP: 122/84 mmHg CONCLUSIONS Summary Relatively normal 2D echocardiogram with Doppler imaging. Normal cardiac chamber sizes and function. No significant valvular abnormalities. No pericardial effusion. No prior studies were available for comparison. Signature ------ - ------ - ------ - ------ - FINDINGS Left Atrium Left atrium is normal in size. Left Ventricle Global left ventricular systolic function appears preserved with an estimated ejection fraction of > 65%. The left ventricular cavity size is within normal limits and the left ventricular wall thickness is within normal limits. No definite specific wall motion abnormalities were identified. Right Atrium Right atrium is normal in size. Right Ventricle Normal right ventricular size and function. Mitral Valve Normal mitral valve structure and function. Aortic Valve Normal aortic valve structure and function without stenosis or regurgitation. Tricuspid Valve Normal tricuspid valve structure and function. Pulmonic Valve The pulmonic valve is normal in structure. Pericardial Effusion No significant pericardial effusion is seen. Miscellaneous No clear evidence of diastolic dysfunction was identified. Normal aortic root dimension. M-mode / 2D Measurements & Calculations: LVIDd:4.63 cm(3.7 - 5.6 cm) Diastolic Volume:72.99598 ml LVIDs:3.07 cm(2.2 - 4.0 cm) Systolic Volume:20.28 ml IVSd:0.89 cm(0.6 - 1.1 cm) Aortic Root:2.84 cm(2.0 - 3.7 cm) LVPWd:0.86 cm(0.6 - 1.1 cm) LA Dimension: 3.48 cm(1.9 - 4.0 cm) Fractional Shortenin.69 % LA volume/Index: 37.4 ml /19m^2 Calculated LVEF (%): 72.07 % AV Cusp Separation: 1.67 cm Mitral: Aortic Valve Area (P1/2-Time): 4.5 cm^2 Peak Velocity: 1.20 m/s Peak E-Wave: 0.78 m/s Mean Velocity: 0.91 m/s Peak A-Wave: 0.73 m/s Peak Gradient: 5.74 mmHg E/A Ratio: 1.07 Mean Gradient: 3.62 mmHg Peak Gradient: 2.45 mmHg Acceleration Time: 44.2 msec P1/2t: 48.87 msec AV VTI: 20.22 cm Diastology / Tissue Doppler Lateral Wall E' velocity:0.17 m/s Lateral Wall E/E':4.97 [employer] Work Phone: [employer] Work Phone: [facility] Anion gap [Moles/Vol] 11 mmol/L 9 - 17 mmol/L [employer] Calcium [Mass/Vol] 10.0 mg/dL 8.6 - 10. 4 mg/dL [facility] Chloride [Moles/Vol] 102 mmol/L 98 - 10 7 mmol/L [employer] CO2 [Moles/Vol] 26 mmol/L 20 - 31 mmol/L [employer] Creatinine [Mass/Vol] 0.71 mg/dL 0.50 - 0.90 mg/dL [employer] GFR/1.73 sq M.predicted MDRD (S/P/Bld) [Vol rate/Area] - PINF [employer] Comment on above: These results are not intended for use in patients <18 years of age. eGFR results are calculated without a race factor using the 2020 CKD-EPI equation. Careful clinical correlation is recommended, particularly when comparing to results calculated using previous equations. The CKD-EPI equation is less accurate in patients with extremes of muscle mass, extra-renal metabolism of creatine, excessive creatine ingestion, or following therapy that affects renal tubular secretion. Glucose [Mass/Vol] 106 mg/dL High 70 - 99 mg/dL [facility] Interpretation and review of laboratory results Abnormal [facility] Potassium [Moles/Vol] 3.8 mmol/L 3.7 - 5.3 mmol/L [facility] Sodium [Moles/Vol] 139 mmol/L 135 - 144 mmol/L [facility] Urea nitrogen [Mass/Vol] 9 mg/dL 6 - 20 mg/dL [facility] Urea nitrogen/Creatinine (Bld) [Mass ratio] 13 9 - 20 [facility] CBC with Auto Differentialon 10-17-2022 Absolute Eos # 0.06 [place] [facility] Absolute Immature Granulocyte [facility] Absolute Lymph # 1.62 [facility] Absolute [place] # 0.36 [facility] Basophils (Bld) [#/Vol] 0.03 10*3/uL [facility] Basophils/100 WBC (Bld) 0 % 0 - 2 % [facility] Eosinophils/100 WBC (Bld) 1 % 1 - 4 % [facility] Hematocrit (Bld) [Volume fraction] 44.6 % 36.3 - 47.1 % [facility] Hemoglobin (Bld) [Mass/Vol] 14.6 g/dL 11.9 - 15.1 g/dL [facility] Immature granulocytes/100 WBC (Bld) 0 % 0 [facility] Interpretation and review of laboratory results Abnormal [facility] Lymphocytes/100 WBC (Bld) 21 % Low 24 - 43 % [facility] MCH (RBC) [Entitic mass] 28.6 pg 25.2 - 33.5 pg [facility] MCHC (RBC) [Mass/Vol] 32.7 g/dL 28.4 - 34.8 g/dL [facility] MCV (RBC) [Entitic vol] 87.5 fL 82.6 - 102.9 fL [facility] Monocytes/100 WBC (Bld) 5 % 3 - 12 % [facility] NRBC Automated 0.0 0.0 per 100 WBC [facility] Platelet distribution width (Bld) [Ratio] 13.0 % 11.8 - 14.4 % [facility] Platelet mean volume (Bld) [Entitic vol] 10.5 fL 8.1 - 13.5 fL [facility] Platelets (Bld) [#/Vol] 348 10*3/uL [facility] RBC (Bld) [#/Vol] 5.10 10*6/uL 3.95 - 5.1 1 m/uL [facility] Segmented neutrophils/100 WBC (Bld) 73 % High 36 - 65 % [facility] Segs Absolute 5.61 [facility] WBC (Bld) [#/Vol] 7.7 10*3/uL [facility] Magnesiumon 10-17-2022 Magnesium [Mass/Vol] 1.9 mg/dL 1.6 - 2 .6 mg/dL [facility] No Panel Informationon 10-17 [facility] Troponinon 10-17-2022 Troponin I.cardiac DL <= 0.01 ng/mL [Mass/Vol] ng/L 0 - 14 ng/L [facility] Comment on above: High Sensitivity Tro ponin values cannot be compared with other Troponin methodologies. [facility] COPPER,RANDOM OR 24 HR URINE on 10-15-2022 URINE VOLUME 0 [facility] Comment on above: Performed By: #### L COPU #### Testing performed at [facility] XR SCOLIOSIS PA STAND/LAT 2V on 10-14-2022 [facility] COPPER,RANDOM OR 24 HR URINE on 10-07-2022 COPPER CREAT RATIO 9 [facility] Comment on above: Result Comment: Refe rence range: 0 to 49 Unit: ug/g creat Performed By: #### L COPU #### Testing performed at [facility] CREATININE,U 0.45 [facility] Comment on above: Result Comment: Dete ction Limit = 0.10 Reference range: 0.30 to 3.00 Unit: g/L Performed By: #### L COPU #### Testing performed at [facility],URINE 4 [facility] Comment on above: Result Comment: Refe rence range: Not Estab. Unit: ug/L (NOTE) This test was developed and its performance characteristics determined by [facility]. It has not been cleared or approved by the Food and Drug Administration. Detection Limit = 1 Performed By: #### L COPU #### Testing performed at [facility],URINE 24 HR 10 [facility] Comment on above: Result Comment: Refe rence range: 3 to 35 Unit: ug/24 hr PERFORMED AT [facility] Performed By: #### L COPU #### Testing performed at [facility],RANDOM OR 24 HR URINE on 10-05-2022 URINE UNITS MLS [facility] Comment on above: Performed By: #### L COPU #### Testing performed at [facility] FAX REQUESTon 10-05-2022 FAX TO [phone] [facility] Comment on above: Performed By: #### L COPU #### Testing performed at [facility] PERIODon 10-05-2022 PERIOD 24 HRS [facility] Comment on above: Performed By: #### L COPU #### Testing performed at [facility] VOLUME 2520 MLS [facility] Comment on above: Performed By: #### L COPU #### Testing performed at [facility] FAX REQUESTon 10-03-2022 FAX TO [facility] SENDOUT TESTon 10-03-2022 SENDOUT TEST PROSTAGLANDIN D2([id number]) AND TRYPTASE([id number]) [facility] US ABDOMEN COMPLETEon 2022 US ABDOMEN COMPLETE EXAM: US ABDOMEN COMPLETE 08/15/2022 10:30 AM EST HISTORY: Elevated LFTs COMPARISON: CT 06/12/2022 TECHNIQUE: Sonographic evaluation of the abdomen was performed. FINDINGS: Liver: Increased attenuation throughout the liver, compatible with diffuse fatty replacement. Pancreas: Limited visualized portions are grossly unremarkable. Gallbladder: No gallstones. No gallbladder wall thickening or pericholecystic fluid. No sonographic Velez's sign. Biliary structures: Common bile duct measures 2 mm in diameter. No significant biliary dilatation. Aorta: The visualized portions are normal in caliber. IVC: No significant abnormality. Spleen: Measures 10.6 cm long. Right kidney: 10.3 cm long. The kidney is reniform in shape, normal in echotexture, without hydronephrosis. Left kidney: 10.9 cm long. The kidney is reniform in shape, normal in echotexture, without hydronephrosis. IMPRESSION: 1. Hepatic steatosis. 2. There are no other significant abnormalities. [facility] US Abdomenon 08-15-2022 IMPRESSION: 1. Hepatic steatosis. 2. There are no other significant abnormalities. RADIOLOGY EXAM: US ABDOMEN COMPLETE 08/15/2022 10:30 AM EST HISTORY: Elevated LFTs COMPARISON: CT 06/12/2022 TECHNIQUE: Sonographic evaluation of the abdomen was performed. FINDINGS: Liver: Increased attenuation throughout the liver, compatible with diffuse fatty replacement. Pancreas: Limited visualized portions are grossly unremarkable. Gallbladder: No gallstones. No gallbladder wall thickening or pericholecystic fluid. No sonographic Velez's sign. Biliary structures: Common bile duct measures 2 mm in diameter. No significant biliary dilatation. Aorta: The visualized portions are normal in caliber. IVC: No significant abnormality. Spleen: Measures 10.6 cm long. Right kidney: 10.3 cm long. The kidney is reniform in shape, normal in echotexture, without hydronephrosis. Left kidney: 10.9 cm long. The kidney is reniform in shape, normal in echotexture, without hydronephrosis. RADIOLOGY Rossy, Cecilia Gilbert MD - 08/15/2022 EXAM: US ABDOMEN COMPLETE 08/15/2022 10:30 AM EST HISTORY: Elevated LFTs COMPARISON: CT 06/12/2022 TECHNIQUE: Sonographic evaluation of the abdomen was performed. FINDINGS: Liver: Increased attenuation throughout the liver, compatible with diffuse fatty replacement. Pancreas: Limited visualized portions are grossly unremarkable. Gallbladder: No gallstones. No gallbladder wall thickening or pericholecystic fluid. No sonographic Velez's sign. Biliary structures: Common bile duct measures 2 mm in diameter. No significant biliary dilatation. Aorta: The visualized portions are normal in caliber. IVC: No significant abnormality. Spleen: Measures 10.6 cm long. Right kidney: 10.3 cm long. The kidney is reniform in shape, normal in echotexture, without hydronephrosis. Left kidney: 10.9 cm long. The kidney is reniform in shape, normal in echotexture, without hydronephrosis. IMPRESSION IMPRESSION: 1. Hepatic steatosis. 2. There are no other significant abnormalities. [employer] Radiology Study observation (narrative) [employer] US AbdomenOrdered By: Cecilia Blair on 08-15-2022 [employer] Work Phone: Pathology studyOrdered By: Riley Ng on 08-01-2022 Citation Lorenzo (Reference lab test) [id number] uZzEwMzNcZnRuYmpcdWMxIH qkehFwLBzhf0VgR1KaYjLeB FxhbnNpXGRlZmxhbmcxMDMz PCR8iwDkVLXcLXxrJCXxHJm uYe7pkAPhjUuyQfNxNLTrj3 yayyCXZDtgPBNQCDc8d6wqT SEjBsF8bXZnRJhzV9xbjoRe nQEtL2Cxp3NmMJl8gC90DLT lwV0liJRuTWdkczDiPhC7BO ejEILoUxJ0RPJwlIXdITPlR 8naHPAkBUvfbsFcfvK8GVJt cAMoJYV6CIAaVMAsB7PfRZ3 dEKKvuUHfAHz1a8gnyJlpUA JkTHF8e8mjQOnlhkVfUY2dp d6pxQb8g0tkrbMwQHFaIIOw iJOZIMGdN2AhxCamCm9fkYi 9vVnvEidzNDO9Wpq7UE3mic 06sqw0kVuzXYZozilbHlU2L LukEMSfuawjUWm6MBfuLHWo tWP3FZPgrGEhM5QsPJWpCN9 usgi1YLI5UGspDLVoWlV5PD YieFBnHWShoGxpHFhth561X OP7CjRgLK9vY1Zrt0P9iX9g aXRcZGVmdGFiNzIwXGZvcm1 bdZNlIZbwk0QgJRW9zoJ3rO RavBRxCOCbAL94Toaza2JmT zpaKED6FLZaaaImv2Ikc2xo EhCfhcQoG3elF8CwNKAkPRN yKZGwXpZzptSnx5Wwx0YpwH MkpIc0j7zvQPQlVEWtdPxtm 0kyXLU4SEFcZ8H1xDWsa6aa LYgbWHNdwFJ3otA7LNZuaAB cN9XuzJ9nDLMkDM3sihj4v9 zsVDN7UHreECPxHpF6zgX4N JPbbWMqCKPfuTosKKpvh302 FNG6VeKySSHvc1QaQ7VhaEz kO94yqZiyU87vNZCeaSjtbJ 2puGjztN3sJlWkRnMrHJeid EameKQyqzmvATemynS1UIxo ecghUAVoUTuxI7ihOnMmNKQ bvVecUIfxe2LwQNQpSOHrGa vgosQ8SPwjHS77EMhftQNao 6wpc5RgX5lxzInyiTQ9RA3t NMZcPMZzXSwgb9LhzX7tsGW wZVAgtyU9fPFrjE75XUXlpf R6JZUrl33uv1IewOimhsJmA EEoJWasqnWeELXeb0QyPQCq RKFsLW08dvTbV3YwuRFqWUD hneAgRAguoV1rt8c7UWfeYy 7rXPzda9NsjGJjaFFfoFP9H FGzd4EgNwOpedJjsNZubgWa XU0pWLUusRUxjdHhUGP7UVK mEMIVDbIvVMRou7PzHD0jRC TfsOdyKUWazB3np8OuUYLam 24uIFRoZSBGREEgaGFzIGRl dGVybWluZWQgdGhhdCBzdWN xEYErZLYpIV2cNMAnwwMzzJ Xkr2DwvCIvuePey2ZnipHuG APpPUG6FqGLlMRuNII0TSZ1 wdKgcxFobWRzSGOgl2DrG6r nkaaxLNwapHAxfA5uFKQgMI 4rKRDar8EjGJSgv8OxJoLbh cIzRYPrMMZxWDPwjL66QVM3 dClrcEzfeqHbLV4sPFAxlvQ gUGNwDATwgF2wIAmdpsTeNM VftmI8u8T9XJcvSZZxjvUoA yjkMXZ3erVcETOmu8JqFGps I9ruO89sfHttjJa1fQK3CON 6dX8fEUClIVRyRQRzYOHAxK fyeYIzhZVABRTfauO2l6F3F FrdyQPbusWdIH31UVTxQC5w sTXbtHHbf7ItWVr5JA9hXTc mXFDohuBis8wrVTWeo1lpGM Wkwm0suvhzwSCldhAsO0Ssq mb6vZ3xrXFuYGHxkf21QOV2 FwNpJA5gcOsbIVQnFG5vICD mN3ityZ0nikb9QaKxy6qthC YxXHNzdGVjZjIyMDAwXGFuc 2lcZGVmbGFuZzEwMzNcZnRu AkbbbKJuGFQvHjXsi3wuh56 0mSUpg3vlTRWnChM6dQYhTI TiV07eTRKMG017XYNvZGrcx 0tdz2HyGHMjxFTay5D7OEIN NDirFCGZGAz3gVmfR13yi4L 4BgtuA6tqUFXwXEZvI3IxJK 3qSIWwHju9BXC3ZXR9RMJoE FP0KJbzSLEbIAEqXwr6NIP6 IDtccmVkMTQzXGdyZWVuMTQ zFKPhcYScKYFeR8pnQZRjQE qoXDFvKLbgbVRdLDK3wRggk 1A9yLBoeJQgpWxnAoLeAoQo XwTLb2GxVBl8hYnjR6TbPSF pSxC0jRKxJOZzJOveQMDmSG InbqP3zS64VEyxvsT0uWCka 0Cna29oj515lL5fiREjLQF5 XCPmNBXocISvHXOsQQW8TVE blHVpU1xwLRBdWG9bkxekCN uzMImtWSFgsJC1ZWEtiFBzU 6IcCBKgVKypLUZmbte0ScUr Dp6vnAVwfSwiWNvzq1fsr1l kgOXtTgf9HHEsPwPhGlzlHU erj9Yci1ncLLBmmk8eECL2h QFvgFcxi4A5zQQwTZEosZAx nwTzTGBkVeL5KWokKU5kna8 9ALIbRWX3du7vrRTpuUszjs EmsKXtLOynG2GaDVSzm413L TNhO8MgNGTqr2G7fvFaQoNl AVIzdOU0jfS5PMIaWIb8bXY wjxA7liChpUCyX1cwwB7zFA PxLZ5wtkrlu0buZJbzYGejX ETmaVL3hjK5IDUndHBpF6Rc rX1dYOOaPFdpWQGbzqc3NfE pLn4cnYLlxCgiLLewQhkyYP dlXHBnbmNvbnRccGduZGVjX HBsYWluXHBsYWluXGYwXGZz QeMkaGrkpTmalU7wOlLnLfC iPNjiYZ4kGSWiK4juhOHeWU AbSDWsM1seNxVxsL8xiIznL VxjZjJcZnMxOFxpIFRoZSB0 KVQczbcaIVswI73euP4jJJ7 1MDdbfxVmUGVzi6BaMNYsUL NiVFlzQHTudaWdMKdlmQ5xv 0k6SYfiXi8kRWQdfwfpWAY9 LmOcDH15BaeroMCmOGBTpmT sIENvbHVtYnVzLCBPaGlvID SkRjM5GxKBuBKko4Shy4JnD aMyxFWohH2djSvlvrU5BWQg cYHoYe6leIBqEtmsuPIidtx hDRehijG7ERnxqlthBQLuPR szG8ppFtJkSBPhsBemQJqtj 2RvIKEoQBUkX4hhurX5XFqn aQXwWYMleo99jG== [employer] Work Phone: Clinical Information q0kjiKKjCMSrsZHlJGD wNVx zyaOeIESdhSHkH8IqffmlJT ruXR5jZM0emFvxkKMdfDRwB PJzBpIyr7pij541oHWeu3pt DWFJbftjeXm5lOdiV55bb0P 7KvirW57vqCSqPIA8UTRoFQ QteKWkLCFpSGF0OQTxzLUlI 5ulCNYqUH3laepwGHhnMIys IUCsjZM6ACOfrYPaE0XeYEW gNWrxMQTyvfj9DzTrDh2bwQ VyeTcyMFxwYXJkXHBsYWluX SXbJaVyE1EwuEDrNTKpj5Tm EEigYAspbaByvFD5ZYPai7Y wj2Omm6v0aT39kDMof78rnU FnaXRpcyBbSzIxLjldXHBhc vQRGBZ8nh5gNUTqh1ytAEzX MzEuODRdXHBhciBPdGhlciB zc39acFftRHRgt89nW9j4AB 0vYD8yuCAhTZCtWH5zOPQlz mMtk3eweCJcZIWbxLOyJzZ6 LjRdXHBhclxwYXJ9 [email or web address] Work Phone: Microscopic description Lorenzo (Endomyocardium) s9fprSLnMKQqeJJIAHHgODO hRX0gkYkcoSi1nZhcTXCrey B9cFLiSTrqb9nvJCT7q5hvb gSLFojwSUKuOR8aNOhqUBDy TC9zOcYzUNEtZrXoSVChnZA dzkWcGgMiBJYgwDHepIO9OA OoUS2ozcstTDbaDCrgWTFsf pI6YAPpkYQuA7CuOHTlTW6v pzzsBQI5MTFHSecwYy9lmUA ibCANCntcZjFcZmNoYXJzZX OoXXCcdCzwYLRuCOg9cT4Be 2ppVakuH7tnisZnjGAhGl6u iQKPTGkyXVCITYe4qM4JSQA eT0NtER4Ew2ijQJAkwGIpEK L1MEagv7kxYUigWMA7TNFbY TIeJHPcFH1NPuMiOQIkXHrq BUlwUkJ1ACp5PCMDSSWlWSs rZJm7CXd6SYv6NHqqjpanUW k5PWOvGIlqvUChYS0byTpcV vlumXgbq0OckCXfJNQfPQuy aWQgNTEwMDIgXFxkYiBPVlI bGdOaKiS3AeS9MmMiGTh6OB pzS8VOCQPaKSZnDEAuTEIbK iE3AEp3BPHHAz6kYef8BDv4 ZTj8OBF1VXMdRSPeSZClOjZ dXXGbURFaEGsofVKkFR9cxN uiFNEjHA4BWFSyIMhqSPCzJ LDzHsLcCO2vK65ntWcmDN83 RKG3fL3oBQXMqI0tUG07lMl fPowwlj6yEBFlwSudJykfuH QxEW3LRHUsubHzBJaisYuab Q0vAeHmOxIgDNezoEYoueho dHJjaFxmczIyXGVwaWNOZXN 3WX0vLTYTLwxztEEqQOVkfT jzOOizbC6hLH8VRNAzYESgI eFsRhLdXVn6EDUzhJ9eSn0h hSEnaZ4dzLWpDCldOBF6cVZ jLSXxMKAdKUUzHL38I0Aexg XgTMIlbiSwGuB6x8IecpAnF iBhcmUgMyBmcmFnbWVudHMg s0OtzJBbCESfpfwzy55pnCE 3eWWjhASaxjCqB4xmJgTkmu 5cOAMhQnF6mkWmJxXnN80vq A2mU6MaNCWnw7CfXFlxGI8z fY4dMoJcXRevCMXgIFPhhQE iCBueXMC8As2bmZGcTQIzgc NaecVhhZYngiWrbV5takGMY P3hnBFhGN0VJANlLtWvLUSt A6hrYYKoTS0FDYWXAX4PAHY moMEFYPJ9KQ3eVWgzAPIcN4 KkY2DkbaG6OPDjezPECoqzC wnxfJdxq3JfnDNlOZPeFUeg aWQgNTEwMDIgXFxkYiBPVlI tBtLwFzY0GyQ3TdAfZJf0NF yaD0BKEQBbWIUdSCBbBKK8V wS5KSe0QYYDVh6wTuv4SGi6 QKR0SSE4YGTyDUHcGDQvTvK iANJrGROkYVlgkXGfBD0rtH bzZCMeJQJxIQQ1JQItzAKMr 2IxMDUgDQpcZjJcZnMyMlxm EInhhnXcVTSdMVB9e55wW7d tZWA3POIfutUAEEgooMGrUD 8NOMBaxsYuQEesqDuxzS7ag EFzG9rcXePeTuVaWQbcQwnb xmOfDSUerLIRWWC3IX9pNTP NClxsdHJwYXJcbGluMFxyaW 9vUFAbNcQuVMPhX7jfPlQrI J4BYQAkBDGfAnXjTtFrYNm5 DFLqtN1kBw1gcBUxyR6lsIG aALpeTDO4oLIlVDRoYQZiIO HzXP04S4LtucUeIWBekcThZ oJ7v06hG7oeVTHuXHF3NMBk AQgvVT66ioLpOeQ6XH6deNj ckxEzs3T2DVGdg0Z3MDNcWE 5khA9bPCIjy03jID7fYXRlI DAuMyBjbSBpbiBncmVhdGVz jGWnoC0atfKem06aPWGOiEP gw9SxR6bsQI4ebJMed8LryN r5yXRdDSJfnOxfLEb3NAsyP CAvc7BfFIJsZilpWJShEBsl h0YyNGRfoXBYq2QyQMGxXeI bILPzI3jyVXZcOB1ECAYKQI 5HNDBukZFZRCY8TN6lFEmnC OToQ6IdN7GtyvM8YHRawnHZ MvzkKydsvUmru8EbqQQnWMY nIFxcaWQgNTEwMDIgXFxkYi RYIeBuKaZtTcS7YiC1KfOuR Xm9NPnxF2OWIGMoGOIdFTPw VLE5BxE7RRt0MLBCCw8bTxm 5SNc2CGd5ZhA0CLSeSMTaFM QgMiBcXHNzIDMgXFxmbCBcX Z9gzIryYLPpDIKgUWE6MZLl fGYFs4LtYOQhKHcvHjQcXaU yMlxmMVxmczIwIEMuIEVzb3 HoDTu1rogdIfyhV6QdofExB 3Dkf61xxc2wXXSxvbTvjZCi OlxwYXIgDQpccGFyZCANClx wbGFpblxsdHJjaFxmMVxmcz QfFWQdUMGoVuMcJBYfG46kk 7DGe5ZjCL8ZXOg1xuXizzhn gS8eNNRkciEjo3HlRNyuaTp jWHNiMzAgDQpcZjFcZnMyMC MVFAThvURwULOgzxZwn9VnW WxpbiBsYWJlbGVkIHdpdGgg dGhlIHBhdGllbnQncyBuYW1 oGRNkMXMrJSNcfXtpJ0WuVd BhcmUgMiBmcmFnbWVudHMgb 9ZmqDSsBTNadhfdd54yhNB5 tVFxoIUabxKvH7zdDeCgwp6 uWIKzWPW1oqWuVeRaH42neK 9oA7AdMYNfw0DgIUgeYN2pn K5lXrVfZPmeGFMvHQNlrRBv RSssTER7Iv1xsMWhQYHzxxV kzkTudFYptrSznB5wkeWUKF 4laTAxSU7VDNTpQEdklGmrA TEqJRbsFSRjAFNcrRDOm6Bb MCANCihBQikNClxlcGljTmV roWGvShS1LZRrnSTeWSY6TV 5yxYsqVUWsW3CnV7IahuN5Q ERuvpHPUyvkKYHeZC8XKJDt XGZzMjIgDQp9 [employer] Work Phone: Pathology report final diagnosis Narrative p9zqrMSaGQRekFKdUGZmPYh qtlVwUTWlrBUuY9HmxfsfHJ zoFH0aAZ4sxBlwvWTgvWOsC XCeRiMpg6mja780eOWzi8og VYESfvchwXr1oWpxP54lk4G 6VritR8meQIHfISnhLUXuVL pesSGuYAj7UVHphAOkplShM tClVHQqxDWxaMO4AXKeRW2t phyeIPzhWHtiQXYifzL3MOH ooVAlS5YiSYPaGI6dhvwjRP H8JNxuUVYsFWF9MnNeTCYav 5Fgcpc0EbEoiHf2i7drSQEi NYLofXphi6pfXIQ0PEUdpXZ fG4aolU7aYJTvMI6oxqxmy8 azKFaxOHqnXZEueLJ3yyV0U NNolQRcX0DpbG9kWDPiGDXf kgVkeFuiCmD2YZzwbFBofxq qWGBwTaSsL1ImGSKnIZCXsC 9zIT39wDlpMxodyXW6UfftE XIgLSAgRHVvZGVuYWwgbXVj b4LeWRwtnVultt3ns8sgzmi qiPWyekYdzJW7mH9oc2vgJa HfxZMzS5CxYQZqqzKgUEGSl xGymJW3f8wqQ3jkZOP0sBDx gmFgZA1mCSIfoJqvJlRzcMB 2EU4vrSGjXFAxsoIRKeElT4 WhuSGklIkoPvqnqNK9OtmmA ZWqSFSlP0l0izGxVgEjvuOz WS19bcPgCT70W71rGAW0mGV yJI9ogyroWBaeF3kys40iQl VgqbXhFM3yXEXgc69wXSIdt zliYQuwjoCaFA2ifNJ7FImz bLFyg5Y6VVpzLCQudpUUTzK weWxvcmkgaXMgcGVuZGluZy BzuuUvq2adtAMiSMFmUWUak nRlZCBhcyBhbiBhZGRlbmR1 iG5pgPXdPAMoBcDvVyznOXI wQs3uISsMADk3okK6uB1gEZ OtpA8nx4r7EBPwxwJaKXXTG UB7toeiGPWuvsPkZDGtjUMg h3Xba0n5jOIympLddUwwpES kD3ZjsCJyWSMow9iwT3dqPD LpFG8dOY2piULfWR9xUU1hT VqxnHIejUmsUMenrOM7LKKv YXNpYSBvciBkeXNwbGFzaWE opGLrynGoGonhZE6ycLJmYD IwXGZzMjRccGFyfQ== [employer] Work Phone: [employer] Work Phone: Maru 07-29-2022 Esophagogastroduodenos copy [facility] Patient Name: Bethanie Dinero Procedure Date: 07/29/2022 12:27 PM Date of : 1990 Age: 32 Gender: Female Procedure: Upper GI endoscopy Indications: Gastro-esophageal reflux disease, Follow-up of gastroparesis Patient Profile: This is a 32 year old female. Refer to note in patient chart for documentation of history and physical. Providers: DL PONCE MD , WERO FIELD MD, HECTOR FREEMAN CRNA Referring MD: HARISH YOU MD Requesting Provider: Medicines: Sedation Administered by an Anesthesia Professional, Monitored Anesthesia Care Complications: No immediate complications. Procedure: Pre-Anesthesia Assessment: - Prior to the procedure, a History and Physical was performed, and patient medications and allergies were reviewed. The patient is competent. The risks and benefits of the procedure and the sedation options and risks were discussed with the patient. All questions were answered and informed consent was obtained. Patient identification and proposed procedure were verified by the physician, the nurse, the business office technology instructor and the wet process technician in the procedure room. Mental Status Examination: alert and oriented. Respiratory Examination: breathing comfortably on room air. CV Examination: regular rate and rhythm. Prophylactic Antibiotics: The patient does not require prophylactic antibiotics. Prior Anticoagulants: The patient has taken no anticoagulant or antiplatelet agents. ASA Grade Assessment: III - A patient with severe systemic disease. After reviewing the risks and benefits, the patient was deemed in satisfactory condition to undergo the procedure. The anesthesia plan was to use monitored anesthesia care (MAC). Immediately prior to administration of medications, the patient was re-assessed for adequacy to receive sedatives. The heart rate, respiratory rate, oxygen saturations, blood pressure, adequacy of pulmonary ventilation, and response to care were monitored throughout the procedure. The physical status of the patient was re-assessed after the procedure. After obtaining informed consent, the endoscope was passed under direct vision. Throughout the procedure, the patient's blood pressure, pulse, and oxygen saturations were monitored continuously. The [id number] Endoscope was introduced through the mouth, and advanced to the second part of duodenum. The upper GI endoscopy was accomplished without difficulty. The patient tolerated the procedure well. Moderate Sedation: Sedation by Anesthesia Findings: The examined esophagus was normal. Biopsies were taken with a cold forceps for histology. The entire examined stomach was normal. Biopsies were taken with a cold forceps for Helicobacter pylori testing. The examined duodenum was normal. Biopsies for histology were taken with a cold forceps for evaluation of celiac disease. Procedure Code(s): --- Professional --- 94161, Esophagogastroduodenosc opy, flexible, transoral; with biopsy, single or multiple Diagnosis Code(s): --- Professional --- K21.9, Gastro-esophageal reflux disease without esophagitis K31.84, Gastroparesis CPT copyright 2020 [employer]. All rights reserved. The codes documented in this report are preliminary and upon divinity professor review may be revised to meet current compliance requirements. Dl PONCE MD 07/29/2022 12:53:33 PM This report has been signed electronically. Number of Addenda: 0 Note Initiated On: 07/29/2022 12:27 PM Total Procedure Duration Time 0 hours 5 minutes 47 seconds [address] [place], [place] [address] IMPRESSION: - Normal esophagus. Biopsied. - Normal stomach. Biopsied. - Normal examined duodenum. Biopsied. Recommendation: - Patient has a contact number available for emergencies. The signs and symptoms of potential delayed complications were discussed with the patient. Return to normal activities tomorrow. Written discharge instructions were provided to the patient. - Discharge patient to home (with escort). - Resume previous diet. - Continue present medications. - Await pathology results. - Return to my office in 2 weeks. - The findings and recommendations were discussed with the patient and their family. Normal [facility] EGD Anesthesia - General; [facility] END[facility] 07-29-2022 - Normal esophagus. Biopsied. - Normal stomach. Biopsied. - Normal examined duodenum. Biopsied. Recommendation: - Patient has a contact number available for emergencies. The signs and symptoms of potential delayed complications were discussed with the patient. Return to normal activities tomorrow. Written discharge instructions were provided to the patient. - Discharge patient to home (with escort). - Resume previous diet. - Continue present medications. - Await pathology results. - Return to my office in 2 weeks. - The findings and recommendations were discussed with the patient and their family. [facility] Emilia Alonzo ity GI Patient Name: Bethanie Dinero Procedure Date: 07/29/2022 12:27 PM Date of : 1990 Age: 32 Gender: Female Procedure: Upper GI endoscopy Indications: Gastro-esophageal reflux disease, Follow-up of gastroparesis Patient Profile: This is a 32 year old female. Refer to note in patient chart for documentation of history and physical. Providers: DL PONCE MD , WERO FIELD MD, HECTOR FREEMAN CRNA Referring MD: HARISH YOU MD Requesting Provider: Medicines: Sedation Administered by an Anesthesia Professional, Monitored Anesthesia Care Complications: No immediate complications. Procedure: Pre-Anesthesia Assessment: - Prior to the procedure, a History and Physical was performed, and patient medications and allergies were reviewed. The patient is competent. The risks and benefits of the procedure and the sedation options and risks were discussed with the patient. All questions were answered and informed consent was obtained. Patient identification and proposed procedure were verified by the physician, the nurse, the business office technology instructor and the wet process technician in the procedure room. Mental Status Examination: alert and oriented. Respiratory Examination: breathing comfortably on room air. CV Examination: regular rate and rhythm. Prophylactic Antibiotics: The patient does not require prophylactic antibiotics. Prior Anticoagulants: The patient has taken no anticoagulant or antiplatelet agents. ASA Grade Assessment: III - A patient with severe systemic disease. After reviewing the risks and benefits, the patient was deemed in satisfactory condition to undergo the procedure. The anesthesia plan was to use monitored anesthesia care (MAC). Immediately prior to administration of medications, the patient was re-assessed for adequacy to receive sedatives. The heart rate, respiratory rate, oxygen saturations, blood pressure, adequacy of pulmonary ventilation, and response to care were monitored throughout the procedure. The physical status of the patient was re-assessed after the procedure. After obtaining informed consent, the endoscope was passed under direct vision. Throughout the procedure, the patient's blood pressure, pulse, and oxygen saturations were monitored continuously. The [id number] Endoscope was introduced through the mouth, and advanced to the second part of duodenum. The upper GI endoscopy was accomplished without difficulty. The patient tolerated the procedure well. Moderate Sedation: Sedation by Anesthesia Findings: The examined esophagus was normal. Biopsies were taken with a cold forceps for histology. The entire examined stomach was normal. Biopsies were taken with a cold forceps for Helicobacter pylori testing. The examined duodenum was normal. Biopsies for histology were taken with a cold forceps for evaluation of celiac disease. Procedure Code(s): --- Professional --- 95469, Esophagogastroduodenosc opy, flexible, transoral; with biopsy, single or multiple Diagnosis Code(s): --- Professional --- K21.9, Gastro-esophageal reflux disease without esophagitis K31.84, Gastroparesis CPT copyright 2020 [employer]. All rights reserved. The codes documented in this report are preliminary and upon divinity professor review may be revised to meet current compliance requirements. Dl PONCE MD 07/29/2022 12:53:33 PM This report has been signed electronically. Number of Addenda: 0 Note Initiated On: 07/29/2022 12:27 PM Total Procedure Duration Time 0 hours 5 minutes 47 seconds [address] Dl Ponce MD - 07/29/2022 [facility] GI Patient Name: Bethanie Dinero Procedure Date: 07/29/2022 12:27 PM Date of : 1990 Age: 32 Gender: Female Procedure: Upper GI endoscopy Indications: Gastro-esophageal reflux disease, Follow-up of gastroparesis Patient Profile: This is a 32 year old female. Refer to note in patient chart for documentation of history and physical. Providers: DL PONCE MD , WERO FIELD MD, HECTOR FREEMAN CRNA Referring MD: HARISH YOU MD Requesting Provider: Medicines: Sedation Administered by an Anesthesia Professional, Monitored Anesthesia Care Complications: No immediate complications. Procedure: Pre-Anesthesia Assessment: - Prior to the procedure, a History and Physical was performed, and patient medications and allergies were reviewed. The patient is competent. The risks and benefits of the procedure and the sedation options and risks were discussed with the patient. All questions were answered and informed consent was obtained. Patient identification and proposed procedure were verified by the physician, the nurse, the business office technology instructor and the wet process technician in the procedure room. Mental Status Examination: alert and oriented. Respiratory Examination: breathing comfortably on room air. CV Examination: regular rate and rhythm. Prophylactic Antibiotics: The patient does not require prophylactic antibiotics. Prior Anticoagulants: The patient has taken no anticoagulant or antiplatelet agents. ASA Grade Assessment: III - A patient with severe systemic disease. After reviewing the risks and benefits, the patient was deemed in satisfactory condition to undergo the procedure. The anesthesia plan was to use monitored anesthesia care (MAC). Immediately prior to administration of medications, the patient was re-assessed for adequacy to receive sedatives. The heart rate, respiratory rate, oxygen saturations, blood pressure, adequacy of pulmonary ventilation, and response to care were monitored throughout the procedure. The physical status of the patient was re-assessed after the procedure. After obtaining informed consent, the endoscope was passed under direct vision. Throughout the procedure, the patient's blood pressure, pulse, and oxygen saturations were monitored continuously. The [id number] Endoscope was introduced through the mouth, and advanced to the second part of duodenum. The upper GI endoscopy was accomplished without difficulty. The patient tolerated the procedure well. Moderate Sedation: Sedation by Anesthesia Findings: The examined esophagus was normal. Biopsies were taken with a cold forceps for histology. The entire examined stomach was normal. Biopsies were taken with a cold forceps for Helicobacter pylori testing. The examined duodenum was normal. Biopsies for histology were taken with a cold forceps for evaluation of celiac disease. Procedure Code(s): --- Professional --- 19016, Esophagogastroduodenosc opy, flexible, transoral; with biopsy, single or multiple Diagnosis Code(s): --- Professional --- K21.9, Gastro-esophageal reflux disease without esophagitis K31.84, Gastroparesis CPT copyright 2020 [employer]. All rights reserved. The codes documented in this report are preliminary and upon divinity professor review may be revised to meet current compliance requirements. Dl PONCE MD 07/29/2022 12:53:33 PM This report has been signed electronically. Number of Addenda: 0 Note Initiated On: 07/29/2022 12:27 PM Total Procedure Duration Time 0 hours 5 minutes 47 seconds [address] [place] [address] IMPRESSION: - Normal esophagus. Biopsied. - Normal stomach. Biopsied. - Normal examined duodenum. Biopsied. Recommendation: - Patient has a contact number available for emergencies. The signs and symptoms of potential delayed complications were discussed with the patient. Return to normal activities tomorrow. Written discharge instructions were provided to the patient. - Discharge patient to home (with escort). - Resume previous diet. - Continue present medications. - Await pathology results. - Return to my office in 2 weeks. - The findings and recommendations were discussed with the patient and their family. [email or web address] Radiology Study observation (narrative) [employer] HCG ( test) Ql (U)o n 07-29-2022 Beta HCG ( test) Ql (U) Negative Negative [employer] Beta HCG ( test) Ql (U) Yes Yes [facility] Pathology studyon 07-29-2022 Pathology study Immunostain for H. pylori performed on the stomach biopsy (part B) is NEGATIVE. Addendum electronically signed by Megan Ng MD on 08/02/2022 at 10:31 AM A. Duodenum, biopsy: - Duodenal mucosa with no significant pathologic change. - No histologic evidence of celiac sprue. B. Stomach, biopsy: - Oxyntic and antral mucosa with minimal chronic inflammation. Note: Immunostain for H. pylori is pending and will be reported as an addendum. C. GE junction, biopsy: - Gastric cardia mucosa with no significant pathologic change. - No intestinal metaplasia or dysplasia identified. Gastro-esophageal reflux disease without esophagitis [K21.9] Gastroparesis [K31.84] Other constipation [K59.09] Change in bowel habit [R19.4] A. Small Intestine, Duodenum, bx r/o celiac: Received in formalin labeled with the patient's name and duodenum are 3 fragments of garrison-pink soft tissue ranging from 0.2 to 0.3 cm in greatest dimension. The specimen is submitted entirely in block A1. (AB) B. Stomach, Bx r/o HP: Received in formalin labeled with the patient's name and stomach are 5 fragments of garrison-pink soft tissue ranging from 0.2 to 0.3 cm in greatest dimension. The specimen is submitted entirely in block B1. (AB) C. Esophagus, Bx GE junction r/o Barretts: Received in formalin labeled with the patient's name and esophagus are 2 fragments of garrison-pink soft tissue ranging from 0.1 to 0.3 cm in greatest dimension. The specimen is submitted entirely in block C1. (AB) Any immunohistochemistry or special stain used in the interpretation of this case was performed at [facility]. These tests have not been cleared or approved by the U.S. Food and Drug Administration. The FDA has determined that such clearance or approval is not necessary. These tests are used for clinical purposes and should not be regarded as investigational or for research. This laboratory is certified to perform high complexity testing under the Clinical Laboratory Improvement Amendments of 1998. All controls show appropriate reactivity. The technical component was performed at [facility], [address] [place] [address]. Microscopic examination was performed. Normal [facility] Comment on above: Performed By: #### 1 1526-1 #### [facility] [address] [place], [place] [id number] [place] [address] LAB [address] [place] [address] Vaginitis DNA Probeon 2022 Jose David Species, DNA Probe Negative NEGATIVE [facility] Comment on above: for Jose David sp. Method of testing is a DNA probe intended for detection and identification of Jose David species, Gardnerella vaginalis, and Trichomonas vaginalis nucleic acid in vaginal fluid specimens from patients with symptoms of vaginitis/vaginosis. Gardnerella Vaginalis, DNA Probe Positive Abnormal NEGATIVE [facility] Comment on above: for Gardnerella vagi nalis Interpretation and review of laboratory results Abnormal [facility] Source .VAGINAL SWAB [facility] Trichomonas Vaginalis DNA Negative NEGATIVE [facility] Comment on above: for Trichomonas Vagi nalis [facility] EPIL EEG LONGon 06-30-2022 [facility] CBCon 06-12-2022 ABSOLUTE BAS 0.1 10*3/uL Normal 0.0-0.2 [facility] Comment on above: Result Comment: Test ing performed at [place] [address] Performed By: #### A CBC, LIPA2, CMPF #### Testing performed at [address] [address] ABSOLUTE EOS 0.1 10*3/uL Normal 0.0-0.7 [facility] Comment on above: Performed By: #### A CBC, LIPA2, CMPF #### [place] [address] ABSOLUTE NEUTROPHIL COUNT 5.0 10*3/uL Normal 1.4-6.5 [facility] Comment on above: Performed By: #### A CBC, LIPA2, CMPF #### [place] [address] Basophils/100 WBC (Bld) 0.8 % Normal 0.0-2.0 [facility] Comment on above: Performed By: #### A CBC, LIPA2, CMPF #### [place] [address] DTYPE AUTO DIFF Normal [facility] Comment on above: Performed By: #### A CBC, LIPA2, CMPF #### Testing performed at [place] [id number] Eosinophils/100 WBC (Bld) 1.7 % Normal 0.0-11.0 [facility] Comment on above: Performed By: #### A CBC, LIPA2, CMPF #### Testing performed at [place] [id number] Lymphocytes (Bld) [#/Vol] 2.3 10*3/uL Normal 1.2-3.4 [facility] Comment on above: Performed By: #### A CBC, LIPA2, CMPF #### [place] [address] Lymphocytes/100 WBC (Bld) 29.1 % Normal 20.0-55.0 [facility] Comment on above: Performed By: #### A CBC, LIPA2, CMPF #### [place] [address] Monocytes (Bld) [#/Vol] 0.4 10*3/uL Normal 0.0-0.7 [facility] Comment on above: Performed By: #### A CBC, LIPA2, CMPF #### [place] [address] Monocytes/100 WBC (Bld) 5.2 % Normal 0.0-10.0 [facility] Comment on above: Performed By: #### A CBC, LIPA2, CMPF #### [place] [address] Neutrophils/100 WBC (Bld) 63.2 % Normal 37.0-75.0 [facility] Comment on above: Performed By: #### A CBC, LIPA2, CMPF #### [place] [address] Erythrocyte distribution width (RBC) [Ratio] 13.1 % Normal 11.5-14.5 [facility] Comment on above: Performed By: #### A CBC, LIPA2, CMPF #### [place] [address] Hematocrit (Bld) [Volume fraction] 43.2 % Normal 36.0-48.0 [facility] Comment on above: Performed By: #### A CBC, LIPA2, CMPF #### [place] [address] Hemoglobin (Bld) [Mass/Vol] 14.2 g/dL Normal 12.0-16.0 [facility] Comment on above: Performed By: #### A CBC, LIPA2, CMPF #### [place] [address] MCH (RBC) [Entitic mass] 28.4 pg Normal 26.0-35.0 [facility] Comment on above: Performed By: #### A CBC, LIPA2, CMPF #### [place] [address] MCHC (RBC) [Mass/Vol] 32.9 g/dL Normal 27.0-37.0 [facility] Comment on above: Performed By: #### A CBC, LIPA2, CMPF #### [place] [address] MCV (RBC) [Entitic vol] 86.5 fL Normal 80.0-100.0 [facility] Comment on above: Performed By: #### A CBC, LIPA2, CMPF #### [place] [address] Platelet mean volume (Bld) [Entitic vol] 8.5 fL Normal 7.4-11.0 [facility] Comment on above: Performed By: #### A CBC, LIPA2, CMPF #### [place] [address] Platelets (Bld) [#/Vol] 352 10*3/uL Normal 130.0-400.0 [facility] Comment on above: Performed By: #### A CBC, LIPA2, CMPF #### [place] [address] RBC (Bld) [#/Vol] 4.99 10*6/uL Normal 4.0-5.4 [facility] Comment on above: Performed By: #### A CBC, LIPA2, CMPF #### [place] [address] WBC (Bld) [#/Vol] 7.9 10*3/uL Normal 3.6-11.0 [facility] Comment on above: Performed By: #### A CBC, LIPA2, CMPF #### [place] [address] CMP FASTINGon 06-12-2022 A:G RATIO 1.5 RATIO Normal 1.3-2.2 [facility] Comment on above: Performed By: #### A CBC, LIPA2, CMPF #### Testing performed at [address] [address] ALBUMIN 4.5 G/dl Normal 3.5-5.0 [facility] Comment on above: Performed By: #### A CBC, LIPA2, CMPF #### Testing performed at [address] [address] ALP [Catalytic activity/Vol] 79 U/L Normal 38-126 [facility] Comment on above: Performed By: #### A CBC, LIPA2, CMPF #### Testing performed at [address] [address] ALT [Catalytic activity/Vol] 53 U/L High <35 [facility] Comment on above: Performed By: #### A CBC, LIPA2, CMPF #### Testing performed at [address] [address] AST [Catalytic activity/Vol] 37 U/L High 14-36 [facility] Comment on above: Performed By: #### A CBC, LIPA2, CMPF #### Testing performed at [address] [address] Bilirubin [Mass/Vol] 0.2 mg/dL Normal 0.2-1.3 [facility] Comment on above: Performed By: #### A CBC, LIPA2, CMPF #### Testing performed at [address] [address] Calcium [Mass/Vol] 9.4 mg/dL Normal 8.4-10.2 [facility] Comment on above: Performed By: #### A CBC, LIPA2, CMPF #### Testing performed at [address] [address] Chloride [Moles/Vol] 104 mmol/L Normal 98-107 [facility] Comment on above: Result Comment: [place] dawkins note: Triglyceride levels of 600mg/dL or higher may positively bias chloride results by approximately 2.1 mmol Performed By: #### A CBC, LIPA2, CMPF #### Testing performed at [address] [address] CO2 [Moles/Vol] 26 mmol/L Normal 22-30 [facility] Comment on above: Performed By: #### A CBC, LIPA2, CMPF #### [place] [address] Creatinine [Mass/Vol] 0.70 mg/dL Normal 0.7-1.2 [facility] Comment on above: Performed By: #### A CBC, LIPA2, CMPF #### [place] [address] EST. GFR, 125 ml/min/1.73sq.m Normal [facility] Comment on above: Performed By: #### A CBC, LIPA2, CMPF #### [place] [address] EST. GFR,Non 103 ml/min/1.73sq.m [facility] Comment on above: Performed By: #### A CBC, LIPA2, CMPF #### [place] [address] GFR Information Average GFR for 30-3 9 years old = 107. Normal [facility] Comment on above: Result Comment: Administrative Medical Director bria Kidney disease, GFR = <60. Kidney failure, GFR = <15. The GFR estimate is not adjusted for extreme body surface area or acute process, nor has it been validated for women or ethnic groups other than and . Testing performed at [place] [address] Performed By: #### A CBC, LIPA2, CMPF #### [place] [address] Glucose [Mass/Vol] 86 mg/dL Normal 70-100 [facility] Comment on above: Result Comment: NORMAL <100 mg/dL PREDIABETES 101-126 mg/dL DIABETES 126 mg/dL or higher Performed By: #### A CBC, LIPA2, CMPF #### [place] [address] Potassium [Moles/Vol] 4.6 mmol/L Normal 3.5-5.1 [facility] Comment on above: Performed By: #### A CBC, LIPA2, CMPF #### Testing performed at [address] [address] Protein [Mass/Vol] 7.5 g/dL Normal 6.3-8.2 [facility] Comment on above: Performed By: #### A CBC, LIPA2, CMPF #### Testing performed at [place] [id number] Sodium [Moles/Vol] 137 mmol/L Normal 137-145 [facility] Comment on above: Performed By: #### A CBC, LIPA2, CMPF #### Testing performed at [place] [id number] Urea nitrogen [Mass/Vol] 15 mg/dL Normal 7-20 [facility] Comment on above: Performed By: #### A CBC, LIPA2, CMPF #### [place] [address] CT ABDOMEN/PELVIS WITHOUT CO NTRASTon 06-12-2022 CT ABDOMEN/PELVIS WITHOUT CONTRAST EXAMINATION:CT ABDOMEN/PELVIS WITHOUT CONTRAST INDICATION:Abdominal pain. COMPARISON:None TECHNIQUE:Multiple thin section transaxial slices were acquired through the abdomen and pelvis without intravenous contrast. Coronal and sagittal reconstructed images were reviewed. Oral contrastWas not administered. FINDINGS: LOWER CHEST: The lung bases are clear. There is incompletely imaged breast implants in the lower chest. LIVER: The liver is unremarkable. GALLBLADDER AND BILIARY SYSTEM: No obvious ductal dilation. No calcified stones. SPLEEN: The spleen is unremarkable. PANCREAS: The pancreas is unremarkable. ADRENAL GLANDS: The adrenal glands are unremarkable. KIDNEYS AND URETERS: There is no hydronephrosis of the kidneys.No obstructing urologic calcifications are present. VASCULATURE: Vascularity is unremarkable. PERITONEUM/RETROPERITON EUM: Peritoneum/retroperiton eum is unremarkable. LYMPH NODES: No suspicious lymphadenopathy. GASTROINTESTINAL TRACT: The bowel is normal in caliber.No acute inflammatory process is associated with the bowel.The appendix is visualized and is not inflamed. BLADDER: The urinary bladder is unremarkable. REPRODUCTIVE SYSTEM: There is a right adnexal cyst measuring 3.1 cm. BODY WALL: Unremarkable. BONES: Osseous structures are unremarkable. IMPRESSION: 1. There is a right adnexal cyst measuring 3.1 cm. Further evaluation with pelvic sonography is recommended. 2. No acute inflammatory process or obstructive uropathy is present in the abdomen or pelvis. Normal [facility] LIPASE,SERUMon 06-12-2022 LIPASE,SERUM 159 U/L Normal 23-300 [facility] Comment on above: Result Comment: Test ing performed at [place] [address] Performed By: #### A CBC, LIPA2, CMPF #### [place] [address] URINE HCG QUALon 06-12-2022 Beta HCG ( test) Ql (U) Negative Normal [facility] Comment on above: Result Comment: Test ing performed at [place] [address] Performed By: #### U MAC, UHCGT, UMIC #### [place] [address] URINE MACROSCOPICon 06-12-19 23 Bilirubin Ql (U) Negative Normal NEGATIVE [facility] Comment on above: Performed By: #### U MAC, UHCGT, UMIC #### [place] [address] Clarity (U) CLEAR Normal CLEAR [facility] Comment on above: Performed By: #### U MAC, UHCGT, UMIC #### [place] [address] Color (U) YELLOW Normal YELLOW [facility] Comment on above: Performed By: #### U MAC, UHCGT, UMIC #### [place] [address] Glucose Ql (U) Negative Normal NEGATIVE [facility] Comment on above: Performed By: #### U MAC, UHCGT, UMIC #### [place] [address] pH (U) 7.0 [pH] Normal 5.0-7.0 [facility] Comment on above: Performed By: #### U MAC, UHCGT, UMIC #### [place] [address] URINE HEMOGLOBIN TRACE-LYSED Abnormal NEGATIVE [facility] [facility] Comment on above: Performed By: #### U MAC, UHCGT, UMIC #### [place] [address] URINE KETONE Negative Normal NEGATIVE [facility] Comment on above: Performed By: #### U MAC, UHCGT, UMIC #### [place] [address] URINE LEUKOTEST Negative Normal NEGATIVE [facility] Comment on above: Performed By: #### U MAC, UHCGT, UMIC #### [place] [address] URINE NITRATES Negative Normal NEGATIVE [facility] Comment on above: Performed By: #### U MAC, UHCGT, UMIC #### [place] [address] URINE SPEC GRAVITY 1.015 Normal 1.010-1.025 [facility] Comment on above: Performed By: #### U MAC, UHCGT, UMIC #### [place] [address] URINE TOTAL PROTEIN Negative Normal NEGATIVE [facility] Comment on above: Performed By: #### U MAC, UHCGT, UMIC #### [place] [address] Urobilinogen Qn (U) 0.2 {Iva'U}/dL Normal 0.2-1.0 [facility] Comment on above: Performed By: #### U MAC, UHCGT, UMIC #### [place] [address] URINE MICROSCOPICon 06-12-19 23 Bacteria LM.HPF (Urine sed) [#/Area] Negative Normal NEGATIVE [facility] Comment on above: Performed By: #### U MAC, UHCGT, UMIC #### [place] [address] CASTS NONE Normal NONE [facility] Comment on above: Performed By: #### U MAC, UHCGT, UMIC #### Testing performed at [place] [id number] CRYSTAL NONE Normal NONE [facility] Comment on above: Performed By: #### U MAC, UHCGT, UMIC #### [place] [address] Epithelial cells LM Ql (Urine sed) 1 TO 5 Normal [facility] Comment on above: Performed By: #### U MAC, UHCGT, UMIC #### [place] [address] Mucus Ql (Urine sed) Negative Normal NEGATIVE [facility] Comment on above: Performed By: #### U MAC, UHCGT, UMIC #### [place] [address] URINE COMMENT CULTURE CRITERIA NOT MET, NO CULTURE PERFORMED. Normal [facility] Comment on above: Performed By: #### U MAC, UHCGT, UMIC #### [place] [address] URINE RBC'S 1 TO 5 Normal NEGATIVE [facility] Comment on above: Performed By: #### U MAC, UHCGT, UMIC #### [place] [address] URINE WBC'S Negative Normal NEGATIVE [facility] Comment on above: Performed By: #### U MAC, UHCGT, UMIC #### [place] [address] XR Lumbar Spine 2-3 Views (S tandard)on 03-12-2022 Unremarkable exam. [employer] Workstation ID: [id number] GE RIS EXAMINATION: THREE XRAY VIEWS OF THE LUMBAR SPINE 03/09/2022 12:17 pm COMPARISON: CT lumbar spine 07/17/2016. HISTORY: ORDERING SYSTEM PROVIDED HISTORY: low back pain; TECHNOLOGIST PROVIDED HISTORY: Illness/Other Acuity: Chronic Reason for Exam: low back pain Type of Encounter: Initial Additional signs and symptoms: pt states pain for years, no recent injury ORDERING SYSTEM PROVIDED DIAGNOSIS CODES: M54.41 Chronic low back pain with right-sided sciatica, unspecified back pain laterality G89.29 Chronic low back pain with right-sided sciatica, unspecified back pain laterality FINDINGS: No fractures are seen. Vertebral body heights are maintained. Alignment is preserved. No suspicious focal bony lesions are seen. No significant degenerative changes are noted. Jane Chaudhari MD - 03/12/2022 EXAMINATION: THREE XRAY VIEWS OF THE LUMBAR SPINE 03/09/2022 12:17 pm COMPARISON: CT lumbar spine 07/17/2016. HISTORY: ORDERING SYSTEM PROVIDED HISTORY: low back pain; TECHNOLOGIST PROVIDED HISTORY: Illness/Other Acuity: Chronic Reason for Exam: low back pain Type of Encounter: Initial Additional signs and symptoms: pt states pain for years, no recent injury ORDERING SYSTEM PROVIDED DIAGNOSIS CODES: M54.41 Chronic low back pain with right-sided sciatica, unspecified back pain laterality G89.29 Chronic low back pain with right-sided sciatica, unspecified back pain laterality FINDINGS: No fractures are seen. Vertebral body heights are maintained. Alignment is preserved. No suspicious focal bony lesions are seen. No significant degenerative changes are noted. IMPRESSION: Unremarkable exam. ACN/ges Workstation ID: [id number] [facility] XR Lumbar Spine 2-3 Views (S tandard)Ordered By: Jane Whitley on 03-12-2022 [facility] Work Phone: XR LUMBAR SPINE 2-3 VIEWS (S TANDARD)on 03-09-2022 XR LUMBAR SPINE 2-3 VIEWS (STANDARD) EXAMINATION: THREE XRAY VIEWS OF THE LUMBAR SPINE 03/09/2022 12:17 pm COMPARISON: CT lumbar spine 07/17/2016. HISTORY: ORDERING SYSTEM PROVIDED HISTORY: low back pain; TECHNOLOGIST PROVIDED HISTORY: Illness/Other Acuity: Chronic Reason for Exam: low back pain Type of Encounter: Initial Additional signs and symptoms: pt states pain for years, no recent injury ORDERING SYSTEM PROVIDED DIAGNOSIS CODES: M54.41 Chronic low back pain with right-sided sciatica, unspecified back pain laterality G89.29 Chronic low back pain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 Cells UA 0 TO 2 [facility] Work Phone: Interpretation and review of laboratory results Abnormal [facility] Work Phone: Mucus, UA TRACE Abnormal None [facility] Work Phone: Other Observations UA NOT REPORTED NOT REQ. [facility] Work Phone: RBC, UA 0 TO 2 [facility] Work Phone: Renal Epithelial, UA NOT REPORTED 0 /HPF [facility] Work Phone: Trichomonas, UA NOT REPORTED None [facility] Work Phone: WBC, UA 0 TO 2 [facility] Work Phone: Yeast, UA NOT REPORTED None [facility] Work Phone: [facility] Work Phone: UrinalysisOrdered By: Jaja Truong on 11-17-2020 Bilirubin Urine Negative NEGATIVE [facility] Work Phone: Color, UA YELLOW YELLOW [facility] Work Phone: Glucose, Ur 2+ Abnormal NEGATIVE [facility] Work Phone: Interpretation and review of laboratory results Abnormal [facility] Work Phone: Ketones Ql (U) TRACE Abnormal NEGATIVE [facility] Work Phone: Leukocyte esterase Test strip Ql (U) Negative NEGATIVE [facility] Work Phone: Nitrite, Urine Negative NEGATIVE [facility] Work Phone: pH, UA 6.5 [facility] Work Phone: Protein, UA Negative NEGATIVE [facility] Work Phone: Specific [place], UA 1.020 [facility] Work Phone: Turbidity UA CLEAR CLEAR [facility] Work Phone: Urinalysis Comments NOT REPORTED [facility] [email or web address] Work Phone: Urine Hgb Negative NEGATIVE [facility] [employer] Phone: Urobilinogen, Urine Normal Normal [facility] Phone: [facility] Work Phone: Urinalysis macro (dipstick) panel (U)Ordered By: Susie Ye on 10-30-2020 Bilirubin Ql (U) Negative Negative [facility] Glucose Ql (U) Negative Normal, Negative mg/dL [facility] Hemoglobin Ql (U) Negative Negative [facility] Interpretation and review of laboratory results Normal [facility] Ketones Ql (U) Negative Negative mg/dL [facility] Leukocyte esterase Test strip Ql (U) Negative Negative [facility] Nitrite Ql (U) Negative Negative [facility] pH (U) 6.0 [pH] [facility] Protein Ql (U) Negative Negative mg/dL [facility] Specific gravity (U) [Rel density] 1.010 [facility] Urobilinogen Qn (U) Normal <2.0, 0. 2, Normal, Negative, 1.0, 2.0, <1.0 mg/dL [facility] COVID-19/Influenza A,B Molec ularon 08-28-2020 Influenza A Not Detected Not Detected [facility] h Influenza B Not Detected Not Detected [facility] h Interpretation and review of laboratory results Normal [facility] SARS-CoV-2 Not Detected Not Detected [facility] This test was perfor med under the FDA's Emergency Use Authorization (EUA). Testing was performed using the Neha Jose Alfredo SARS-CoV-2 RT-PCR & Influenza A/B Nucleic Acid Test on the Jose Alfredo Adelina System. This test has not been approved for use in asymptomatic patients and its performance in this patient population has not been evaluated. Negative results do not rule out the presence of SARS-CoV-2, influenza A, and/or influenza B. Fact sheets for the EUA can be found at the following links: For Healthcare Providers: https://www.fda.gov/med ia/665268/download For Patients: https://www.fda.gov/med ia/818454/download [facility] POC Urinalysis Dipstick,Non- autoon 08-28-2020 Bilirubin Ql (U) Negative Negative [facility] Glucose Ql (U) Negative Normal, Negative mg/dL [facility] Hemoglobin Ql (U) Negative Negative [facility] Interpretation and review of laboratory results Normal [facility] Ketones Ql (U) Negative Negative mg/dL [facility] Leukocyte esterase Test strip Ql (U) Negative Negative [facility] Nitrite Ql (U) Negative Negative [facility] pH (U) 6.5 [pH] [facility] Protein Ql (U) Negative Negative mg/dL [facility] Specific gravity (U) [Rel density] 1.010 [facility] Urobilinogen Qn (U) Normal <2.0, 0. 2, Normal, Negative, 1.0, 2.0, <1.0 mg/dL [facility] CBC Auto Differentialon Basophils (Bld) [#/Vol] 10*3/uL [place] Basophils/100 WBC (Bld) 0 % 0 - 2 % [place] Differential Type NOT REPORTED [place] Eosinophils (Bld) [#/Vol] 0.11 10*3/uL [place] Eosinophils/100 WBC (Bld) 1 % 1 - 4 % [place] Erythrocyte distribution width (RBC) [Ratio] 12.6 % 11.8 - 14.4 % [place] Hematocrit (Bld) [Volume fraction] 41.1 % 36.3 - 47.1 % [place] Hemoglobin (Bld) [Mass/Vol] 13.7 g/dL 11.9 - 15.1 g/dL [place] Immature granulocytes (Bld) [#/Vol] 10*3/uL [place] Immature granulocytes (Bld) [#/Vol] 0 % 0 [place] Interpretation and review of laboratory results Abnormal [place] Lymphocytes (Bld) [#/Vol] 1.81 10*3/uL [place] Lymphocytes/100 WBC (Bld) 21 % Low 24 - 43 % [place] MCH (RBC) [Entitic mass] 29.8 pg 25.2 - 33.5 pg [place] MCHC (RBC) [Mass/Vol] 33.3 g/dL 28.4 - 34.8 g/dL [place] MCV (RBC) [Entitic vol] 89.3 fL 82.6 - 102.9 fL [place] Monocytes (Bld) [#/Vol] 0.32 10*3/uL [place] Monocytes/100 WBC (Bld) 4 % 3 - 12 % [place] Platelet mean volume (Bld) [Entitic vol] 10.6 fL 8.1 - 13.5 fL [place] Platelets (Bld) [#/Vol] 257 10*3/uL [place] Platelets (Bld) [#/Vol] NOT REPORTED [place] RBC (Bld) [#/Vol] 4.60 10*6/uL 3.95 - 5.1 1 m/uL [place] RBC morphology finding Nom (Bld) NOT REPORTED [place] Segmented neutrophils/100 WBC (Bld) 74 % High 36 - 65 % [place] Segs Absolute 6.33 [place] WBC (Bld) [#/Vol] 0.0 10*3/uL 0.0 per 10 0 WBC [place] WBC (Bld) [#/Vol] 8.6 10*3/uL [place] WBC Morphology NOT REPORTED [place] Comprehensive Metabolic Pane levon 07-14-2020 Albumin [Mass/Vol] 3.8 g/dL 3.5 - 5.2 g/dL [place] Albumin/Globulin [Mass ratio] 1.3 {ratio} [place] ALP [Catalytic activity/Vol] 63 U/L 35 - 104 U/L [place] ALT [Catalytic activity/Vol] 9 U/L 5 - 33 U/L [place] Anion gap [Moles/Vol] 9 mmol/L 9 - 17 mmol/L [place] AST [Catalytic activity/Vol] 13 U/L <32 [place] Bilirubin Ql (U) 0.25 mg/dL Low 0.3 - 1.2 mg/dL [place] Bun/Cre Ratio 17 [place] Calcium [Mass/Vol] 9.3 mg/dL 8.6 - 10. 4 mg/dL [place] Chloride [Moles/Vol] 103 mmol/L 98 - 10 7 mmol/L [place] CO2 [Moles/Vol] 24 mmol/L 20 - 31 mmol/L [place] Creatinine [Mass/Vol] 0.48 mg/dL Low 0.5 - 0.9 mg/dL [place] GFR >60 >60 mL/min [place] GFR Non- >60 >60 mL/min [place] Glucose [Mass/Vol] 108 mg/dL High 70 - 99 mg/dL [place] Interpretation and review of laboratory results Abnormal [place] Potassium [Moles/Vol] 3.8 mmol/L 3.7 - 5.3 mmol/L [place] Protein [Mass/Vol] 6.8 g/dL 6.4 - 8.3 g/dL [place] Sodium [Moles/Vol] 136 mmol/L 135 - 144 mmol/L [place] Urea nitrogen [Mass/Vol] 8 mg/dL 6 - 20 mg/dL [place] Metabolic Panelon 07-14-2020 GFR/1.73 sq M predicted among non-blacks MDRD (S/P/Bld) [Vol rate/Area] [place] Comment on above: Stage 1: Some kidney damage normal GFR Stage 2: Mild kidney damage GFR 60-89 Stage 3: Moderate kidney damage GFR 30-59 Stage 4: Severe kidney damage GFR 15-29 Stage 5: Severe kidney damage GFR <15 ESRD - chronic treatment by dialysis or transplant Average GFR for 30-3 9 years old: 107 mL/min/1.73sq m Chronic Kidney Disease: <60 mL/min/1.73sq m Kidney failure: <15 mL/min/1.73sq m eGFR calculated using average adult body mass. Additional eGFR calculator available at: http://www.Abcellute.ecomom/multiple_crcl_2012.htm Troponinon 07-14-2020 Troponin I.cardiac [Mass/Vol] NOT REPORTED [place] Troponin T.cardiac [Mass/Vol] NOT REPORTED <0.03 ng/mL [place] Troponin, High Sensitivity <6 0 - 14 ng/L [place] Comment on above: High Sensitivity Troponin values cannot be compared with other Troponin methodologies. Patients with high levels of Biotin oral intake (i.e >5mg/day) may have falsely decreased Troponin levels. Samples collected within 8 hours of biotin intake may require additional information for diagnosis. XR CHEST (SINGLE VIEW FRONTA L)on 07-14-2020 No radiographic evidence of acute cardiopulmonary disease. [place] David, Mhpn Incoming Radiant Results From [employer] - 07/14/2020 1:42 PM EST EXAMINATION: ONE XRAY VIEW OF THE CHEST 07/14/2020 1:35 pm COMPARISON: None. HISTORY: ORDERING SYSTEM PROVIDED HISTORY: palpitations TECHNOLOGIST PROVIDED HISTORY: palpitations FINDINGS: Cardiomediastinal silhouette within normal limits. Lungs and costophrenic sulci are clear. No pneumothorax or subdiaphragmatic free air. No acute osseous abnormality identified. IMPRESSION: No radiographic evidence of acute cardiopulmonary disease. [place] EXAMINATION: ONE XRA Y VIEW OF THE CHEST 07/14/2020 1:35 pm COMPARISON: None. HISTORY: ORDERING SYSTEM PROVIDED HISTORY: palpitations TECHNOLOGIST PROVIDED HISTORY: palpitations FINDINGS: Cardiomediastinal silhouette within normal limits. Lungs and costophrenic sulci are clear. No pneumothorax or subdiaphragmatic free air. No acute osseous abnormality identified. [place] Urinalysis with microscopico n 05-23-2020 Amorphous, UA NOT REPORTED None [place] Bacteria, UA 1+ Abnormal None [place] Bilirubin Urine Negative NEGATIVE [place] Casts UA NOT REPORTED /LPF [place] Color, UA YELLOW YELLOW [place] Crystals, UA NOT REPORTED None /HPF [place] Epithelial Cells UA 0 TO 2 [place] Glucose, Ur Negative NEGATIVE [place] Interpretation and review of laboratory results Abnormal [place] Ketones Ql (U) Negative NEGATIVE [place] Leukocyte esterase Test strip Ql (U) Negative NEGATIVE [place] Mucus, UA TRACE Abnormal None [place] Nitrite, Urine Negative NEGATIVE [place] Other Observations UA NOT REPORTED NOT REQ. [place] pH, UA 7.5 [place] Protein (U) [Mass/Vol] Negative NEGATIVE [place] RBC (U) [#/Vol] 2 TO 5 [place], [place] Renal Epithelial, UA NOT REPORTED 0 /HPF [place] Specific [place], UA 1.020 [place], [place] Trichomonas, UA NOT REPORTED None [place] Turbidity UA CLEAR CLEAR [place] Urinalysis Comments NOT REPORTED [place] Urine Hgb 2+ Abnormal NEGATIVE [place] Urobilinogen, Urine Normal Normal [place] WBC, UA None [place] Yeast, UA NOT REPORTED None [place] - [place] hCG, quantitative, on 05-23-2020 hCG Quant [id number] High <5 IU/L [place] Comment on above: Non-preg premeno <=5 Postmeno <=8 Male <=3 If HCG results do not concur with clinical observations, additional testing to confirm results is recommended. Elevated results not associated with may be found in patients with other diseases such as tumors of the germ cells (testis, ovaries, etc.), bladder, pancreas, stomach, lungs, and liver. Interpretation and review of laboratory results Abnormal [place] Basic Metabolic Panelon 12- Anion gap [Moles/Vol] 9 mmol/L 9 - 17 mmol/L [place] Bun/Cre Ratio 14 [place], [place] Calcium [Mass/Vol] 9.5 mg/dL 8.6 - 10. 4 mg/dL [place] Chloride [Moles/Vol] 102 mmol/L 98 - 10 7 mmol/L [place] CO2 [Moles/Vol] 23 mmol/L 20 - 31 mmol/L [place] Creatinine [Mass/Vol] 0.63 mg/dL 0.5 - 0.9 mg/dL [place] GFR >60 >60 mL/min [place] GFR Non- >60 >60 mL/min [place] Glucose [Mass/Vol] 159 mg/dL High 70 - 99 mg/dL [place] Interpretation and review of laboratory results Abnormal [place] Potassium [Moles/Vol] 3.5 mmol/L Low 3.7 - 5.3 mmol/L [place] Sodium [Moles/Vol] 134 mmol/L Low 135 - 144 mmol/L [place] Urea nitrogen [Mass/Vol] 9 mg/dL 6 - 20 mg/dL [place] CBCon 05-20-2020 Erythrocyte distribution width (RBC) [Ratio] 11.8 % 11.8 - 14.4 % [place] Hematocrit (Bld) [Volume fraction] 44.0 % 36.3 - 47.1 % [place] Hemoglobin (Bld) [Mass/Vol] 14.7 g/dL 11.9 - 15.1 g/dL [place] MCH (RBC) [Entitic mass] 30.0 pg 25.2 - 33.5 pg [place] MCHC (RBC) [Mass/Vol] 33.4 g/dL 28.4 - 34.8 g/dL [place] MCV (RBC) [Entitic vol] 89.8 fL 82.6 - 102.9 fL [place] Platelet mean volume (Bld) [Entitic vol] 11.0 fL 8.1 - 13.5 fL [place] Platelets (Bld) [#/Vol] 287 10*3/uL [place] RBC (Bld) [#/Vol] 4.90 10*6/uL 3.95 - 5.1 1 m/uL [place] WBC (Bld) [#/Vol] 0.0 10*3/uL 0.0 per 10 0 WBC [place] WBC (Bld) [#/Vol] 9.6 10*3/uL [place] Metabolic Panelon 05-20-2020 GFR/1.73 sq M predicted among non-blacks MDRD (S/P/Bld) [Vol rate/Area] [place] Comment on above: Average GFR for 30-3 9 years old: 107 mL/min/1.73sq m Chronic Kidney Disease: <60 mL/min/1.73sq m Kidney failure: <15 mL/min/1.73sq m eGFR calculated using average adult body mass. Additional eGFR calculator available at: http://www.COS[employer] COLOR/multiple_crcl_2012.htm Stage 1: Some kidney damage normal GFR Stage 2: Mild kidney damage GFR 60-89 Stage 3: Moderate kidney damage GFR 30-59 Stage 4: Severe kidney damage GFR 15-29 Stage 5: Severe kidney damage GFR <15 ESRD - chronic treatment by dialysis or transplant Microscopic Urinalysison Amorphous, UA NOT REPORTED None [place] Bacteria, UA NOT REPORTED None [place] Casts UA NOT REPORTED /LPF [place] Crystals, UA NOT REPORTED None /HPF [place] Epithelial Cells UA 0 TO 2 [place] Mucus, UA NOT REPORTED None [place] Other Observations UA NOT REPORTED NOT REQ. [place] RBC (U) [#/Vol] 0 TO 2 [place] Renal Epithelial, UA NOT REPORTED 0 /HPF [place] Trichomonas, UA NOT REPORTED None [facility] [place] WBC, UA 0 TO 2 [place] Yeast, UA NOT REPORTED None [place] - [place] US OB LESS THAN 14 WEEKS SIN GLE OR FIRST GESTATIONon 05-20-2020 David, Mhpn Incoming Radiant Results From [employer] - 05/20/2020 4:46 PM EST EXAMINATION: TRANSABDOMINAL FIRST TRIMESTER OBSTETRIC PELVIC ULTRASOUND WITH COLOR DOPPLER FLOW 05/20/2020 TECHNIQUE: TRANSABDOMINAL PELVIC ULTRASOUND WITH COLOR DOPPLER FLOW COMPARISON: 04/29/2020 HISTORY: ORDERING SYSTEM PROVIDED HISTORY: vaginal bleeding, possibly 11 wks OB FINDINGS: Uterus: 12.5 x 7.1 cm Gestational Sac(s): Single normal appearing gestational sac. No evidence of subchorionic hemorrhage. Yolk Sac: Present Pole: Present [place] Rump Length: 3.58 cm Heart Rate: 173 Right ovary: 2.6 x 2.4 x 1.6 cm. Corpus luteum cyst measuring 1.6 cm. Left ovary: Not visualized Measurements: Estimated gestational age by current ultrasound: 10 weeks and 3 days Estimated Due Date: 12/13/2020 IMPRESSION: SLIUP with ultrasound age of 10 weeks 3 days. [place] SLIUP with ultrasoun d age of 10 weeks 3 days. [place] EXAMINATION: TRANSABDOMINAL FIRST TRIMESTER OBSTETRIC PELVIC ULTRASOUND WITH COLOR DOPPLER FLOW 05/20/2020 TECHNIQUE: TRANSABDOMINAL PELVIC ULTRASOUND WITH COLOR DOPPLER FLOW COMPARISON: 04/29/2020 HISTORY: ORDERING SYSTEM PROVIDED HISTORY: vaginal bleeding, possibly 11 wks OB FINDINGS: Uterus: 12.5 x 7.1 cm Gestational Sac(s): Single normal appearing gestational sac. No evidence of subchorionic hemorrhage. Yolk Sac: Present Pole: Present [place] Rump Length: 3.58 cm Heart Rate: 173 Right ovary: 2.6 x 2.4 x 1.6 cm. Corpus luteum cyst measuring 1.6 cm. Left ovary: Not visualized Measurements: Estimated gestational age by current ultrasound: 10 weeks and 3 days Estimated Due Date: 12/13/2020 [place] Urinalysis Reflex to Culture on 05-20-2020 Bilirubin Urine Negative NEGATIVE [place] Color, UA YELLOW YELLOW [place] Glucose, Ur Negative NEGATIVE [place] Interpretation and review of laboratory results Abnormal [place] Ketones Ql (U) Negative NEGATIVE [place] Leukocyte esterase Test strip Ql (U) Negative NEGATIVE [place] Nitrite, Urine Negative NEGATIVE [place] pH, UA 5.5 [place] Protein (U) [Mass/Vol] Negative NEGATIVE [place] Specific [place], UA 1.020 [place], [place] Turbidity UA CLEAR CLEAR [place] Urinalysis Comments NOT REPORTED [place] Urine Hgb TRACE Abnormal NEGATIVE [place] Urobilinogen, Urine Normal Normal [place] Otheron 05-18-2020 Direct Exam Negative [place] VAGINITIS DNA PROBEon 2019 Direct Exam Positive Abnormal [place] Direct Exam Method of testing is a DNA probe intended for detection and identification of Jose David species, Gardnerella vaginalis, and Trichomonas vaginalis nucleic acid in vaginal fluid specimens from patients with symptoms of vaginitis/vaginosis. [place] Interpretation and review of laboratory results Abnormal [place] Special Requests NOT REPORTED [place] Specimen Description .VAGINA [place], [place] HIV Screenon 04-02-2020 HIV Ag/Ab NONREACTIVE NONREACTIVE [place], [place] Comment on above: No laboratory eviden ce of HIV infection. If acute HIV infection is suspected, consider testing for HIV-1 RNA. Hepatitis C Antibodyon 04-01 Hepatitis C Ab NONREACTIVE NONREACTIVE [place], [place] Comment on above: The hepatitis C procedure used in our laboratory is a Chemiluminescent test specific for three recombinant HCV antigens. A negative anti-HCV result indicates that the antibodies to hepatitis C virus are not present at this time. Individuals with reactive anti-HCV should be considered infected and infectious until proven otherwise. Confirmation of all equivocal or reactive results is recommended by ordering HCV RNA by PCR. PROFILE Ion 020 Basophils (Bld) [#/Vol] 0.04 10*3/uL [place] Basophils/100 WBC (Bld) 1 % 0 - 2 % [place] Differential Type NOT REPORTED [place] Eosinophils (Bld) [#/Vol] 0.16 10*3/uL [place] Eosinophils/100 WBC (Bld) 2 % 1 - 4 % [place] Erythrocyte distribution width (RBC) [Ratio] 12.1 % 11.8 - 14.4 % [place] Hematocrit (Bld) [Volume fraction] 43.7 % 36.3 - 47.1 % [place] Hemoglobin (Bld) [Mass/Vol] 14.3 g/dL 11.9 - 15.1 g/dL [place] Hepatitis B Surface Ag NONREACTIVE NONREACTIVE [place] Immature granulocytes (Bld) [#/Vol] 0 % 0 [place] Immature granulocytes (Bld) [#/Vol] 0.03 10*3/uL [place] Lymphocytes (Bld) [#/Vol] 2.31 10*3/uL [place] Lymphocytes/100 WBC (Bld) 29 % 24 - 43 % [place] MCH (RBC) [Entitic mass] 30.7 pg 25.2 - 33.5 pg [place] MCHC (RBC) [Mass/Vol] 32.7 g/dL 28.4 - 34.8 g/dL [place] MCV (RBC) [Entitic vol] 93.8 fL 82.6 - 102.9 fL [place] Monocytes (Bld) [#/Vol] 0.45 10*3/uL [place] Monocytes/100 WBC (Bld) 6 % 3 - 12 % [place] Platelet mean volume (Bld) [Entitic vol] 11.0 fL 8.1 - 13.5 fL [place] Platelets (Bld) [#/Vol] 274 10*3/uL [place] Platelets (Bld) [#/Vol] NOT REPORTED [place] RBC (Bld) [#/Vol] 4.66 10*6/uL 3.95 - 5.1 1 m/uL [place] RBC morphology finding Nom (Bld) NOT REPORTED [place] Rubella virus IgG Ql (S) 251.3 IU/mL [place] Comment on above: REFERENCE RANGE: <5.0 NON-REACTIVE (non-immune) 5.0 TO 9.9 EQUIVOCAL >=10.0 REACTIVE (immune) Segmented neutrophils/100 WBC (Bld) 62 % 36 - 65 % [place] Segs Absolute 5.05 [place], [place] T. pallidum, IgG NONREACTIVE NONREACTIVE [place] Comment on above: T. pallidum antibodies are not detected. There is no serological evidence of infection with T. pallidum (early primary syphilis cannot be excluded). Retest in 2-4 weeks if syphilis is clinically suspect. WBC (Bld) [#/Vol] 8.0 10*3/uL [place] WBC (Bld) [#/Vol] 0.0 10*3/uL 0.0 per 10 0 WBC [place] WBC Morphology NOT REPORTED [place] TYPE AND SCREENon 1 ABO/Rh Positive [place] Urine Drug Screen, Comprehen siveon 04-01-2020 Amphetamine Screen, Ur Negative NEGATIVE [place] Barbiturate Screen, Ur Negative NEGAT[place] Benzodiazepine Screen, Urine Negative NEGATIVE [place] Buprenorphine Urine Negative NEGATIVE [place] Cannabinoid Scrn, Ur Negative NEGATIVE [place], [place] Cocaine Metabolite, Urine Negative NEGATIVE [place] MDMA, Urine NOT REPORTED NEGATIVE [place], [place] Methadone Screen, Urine Negative NEGATIVE [place] Methamphetamine, Urine Negative NEGATIVE [place], [place] Opiates, Urine Negative NEGATIVE [place], [place] Oxycodone Screen, Ur Negative NEGATIVE [place], [place] Phencyclidine, Urine Negative NEGATIVE [place] Propoxyphene, Urine Negative NEGATIVE [place] Test Information NOT REPORTED [place] Tricyclic Antidepressants, Urine Negative NEGATIVE [place], [place] Comment on above: Drug screen results are to be used for medical purposes only. All positive results are unconfirmed. Testing for employment or legal uses should be sent to a reference laboratory for confirmation. XR CHEST AP/PA AND LATon No acute cardiopulmonary findings. Linear lucency traversing through the lateral aspect of the right lower lung zone is suggestive of skin folding. SA/ges Workstation ID: [id number] [facility] EXAMINATION: XR CHES T AP/PA AND LAT 01/08/2020 4:30 pm HISTORY: ORDERING SYSTEM PROVIDED HISTORY: pre-op, TECHNOLOGIST PROVIDED HISTORY: Illness/Other Reason for exam: pre-op Cancer History: Surgery, RadiationHistory: Encounter Type: Initial Additional signs and symptoms: ORDERING SYSTEM PROVIDED DIAGNOSIS CODES: Z01.818 Preop examination COMPARISON: CT chest on 08/06/2016. FINDINGS: PA and lateral chest radiograph. The cardiomediastinal contour is within normal limits. The lungs are clear without any focal consolidative opacity. The linear lucency traversing through the lateral aspect of the right lower lung zone is suggestive of skin folding. No pleural effusion. The visualized osseous structures appear unremarkable. [facility], Rad In Fu ji Speechq - 01/08/2020 9:26 PM EDT EXAMINATION: XR CHEST AP/PA AND LAT 01/08/2020 4:30 pm HISTORY: ORDERING SYSTEM PROVIDED HISTORY: pre-op, TECHNOLOGIST PROVIDED HISTORY: Illness/Other Reason for exam: pre-op Cancer History: Surgery, RadiationHistory: Encounter Type: Initial Additional signs and symptoms: ORDERING SYSTEM PROVIDED DIAGNOSIS CODES: Z01.818 Preop examination COMPARISON: CT chest on 08/06/2016. FINDINGS: PA and lateral chest radiograph. The cardiomediastinal contour is within normal limits. The lungs are clear without any focal consolidative opacity. The linear lucency traversing through the lateral aspect of the right lower lung zone is suggestive of skin folding. No pleural effusion. The visualized osseous structures appear unremarkable. IMPRESSION: No acute cardiopulmonary findings. Linear lucency traversing through the lateral aspect of the right lower lung zone is suggestive of skin folding. SA/ges Workstation ID: [id number] [facility] CBC WITH AUTO DIFFERENTIALon 12-30-2019 Basophils (Bld) [#/Vol] 0.02 10*3/uL [facility] Basophils/100 WBC (Bld) 0.3 % [facility] Eosinophils (Bld) [#/Vol] 0.11 10*3/uL [facility] Eosinophils/100 WBC (Bld) 1.4 % [facility] Erythrocyte distribution width (RBC) [Entitic vol] 12.5 % 11.6 - 14.8 % [facility] Hematocrit (Bld) [Volume fraction] 46.5 % High 36 - 46 % [facility] Hemoglobin (Bld) [Mass/Vol] 14.6 g/dL 12 - 16 g/dL [facility] Immature granulocytes (Bld) [#/Vol] 0.02 10*3/uL [facility] Immature granulocytes/100 WBC (Bld) 0.30 % [facility] Comment on above: The IG parameter is the percentage of metamyelocytes, myelocytes and promyelocytes. An immature granulocyte count (IG) of 1% or more suggests the possibility of infection, an IG count of 3% is very likely related to an infection. Interpretation and review of laboratory results Abnormal [facility] Lymphocytes (Bld) [#/Vol] 2.33 10*3/uL [facility] Lymphocytes/100 WBC (Bld) 29.2 % [facility] MCH (RBC) [Entitic mass] 29.8 pg 26 - 34 pg [facility] MCHC (RBC) [Mass/Vol] 31.4 g/dL 31 - 37 g/dL [facility] MCV (RBC) [Entitic vol] 94.9 fL 80 - 100 fL [facility] Monocytes (Bld) [#/Vol] 0.31 10*3/uL [facility] Monocytes/100 WBC (Bld) 3.9 % [facility] Neutrophils (Bld) [#/Vol] 5.19 10*3/uL [facility] Neutrophils/100 WBC (Bld) 64.9 % [facility] Nucleated RBC (Bld) [#/Vol] 0.00 10*3/uL [facility] Nucleated RBC/100 WBC (Bld) [Ratio] 0.0 % [facility] Platelet mean volume (Bld) [Entitic vol] 11.6 fL 9.4 - 12.4 fL [facility] Platelets (Bld) [#/Vol] 260 10*3/uL [facility] RBC (Bld) [#/Vol] 4.90 10*6/uL [facility] WBC (Bld) [#/Vol] 7.98 10*3/uL [facility] Comprehensive Metabolic Pane levon 12-30-2019 Albumin [Mass/Vol] 4.6 g/dL 3.2 - 5.2 g/dL [facility] ALP [Catalytic activity/Vol] 67 U/L 40 - 140 U/L [facility] ALT [Catalytic activity/Vol] 15 U/L 0 - 40 U/L [facility] Anion gap [Moles/Vol] 18 mmol/L 10 - 2 0 mmol/L [facility] AST [Catalytic activity/Vol] 8 U/L 0 - 45 U/L [facility] Bilirubin [Mass/Vol] 0.3 mg/dL 0 - 1.3 mg/dL [facility] Calcium [Mass/Vol] 9.5 mg/dL 8.4 - 10. 2 mg/dL [facility] Chloride [Moles/Vol] 101 mmol/L 98 - 10 8 mmol/L [facility] Creatinine [Mass/Vol] 0.84 mg/dL 0.40 - 1.10 [facility] GFR/1.73 sq M predicted among non-blacks MDRD (S/P/Bld) [Vol rate/Area] The eGFR should be used for monitoring renal function only and not for medication dosing. [facility] GFR/1.73 sq M.predicted CKD-EPI (S/P/Bld) [Vol rate/Area] 94 >=60 mL/min/1.73 m2 [facility] Glucose [Mass/Vol] 117 mg/dL High 65 - 99 mg/dL [facility] HCO3 [Moles/Vol] 23 mmol/L 21 - 32 mmol/L [facility] Interpretation and review of laboratory results Abnormal [facility] Potassium [Moles/Vol] 4.0 mmol/L 3.5 - 5.1 mmol/L [facility] Protein [Mass/Vol] 6.7 g/dL 6 - 8 g/dL [facility] alth Sodium [Moles/Vol] 138 mmol/L 135 - 145 mmol/L [facility] Urea nitrogen [Mass/Vol] 14 mg/dL 8 - 25 mg/dL [facility] Urea nitrogen/Creatinine [Mass ratio] 16.7 mg/mg [facility] ECG 12-LEADon 12-30-2019 Atrial Rate [facility] P [facility] P-R Interval [facility] Q-T Interval [facility] Q-T Interval (corrected) [facility] QRS Duration [facility] QTC Calculation (Bezet) [facility] R [facility] T [facility] Ventricular Rate [facility] HEPATITIS C ANTIBODYon 12-29 HCV Ab Ql (S) Negative Negative [facility] Test performed using Neha JOSE ALFREDO immunoassay system [facility] HIV 1/2 SCREEN ( ON)on 12-30-2019 HIV 1+2 Ab+HIV1 p24 Ag IA Ql Negative Negative [facility] This assay screens f or the presence of HIV-1, HIV-2 antibodies and for the presence of HIV-1 antigen. Test performed using Neha JOSE ALFREDO immunoassay system [facility] Otheron 12-30-2019 Interpretation and review of laboratory results Normal [facility] URINALYSISon 12-30-2019 Bacteria Auto Ql (U) Few Abnormal None Se en /hpf [facility] Bilirubin Ql (U) Negative Negative [facility] th Clarity Refractometry automated (U) Clear Clear [facility] Color (U) Yellow Colorless, Yellow [facility] Epithelial cells.squamous Auto (Urine sed) [#/Area] 2 [facility] Glucose Auto test strip (U) [Mass/Vol] Negative Negative mg/dL [facility] Hemoglobin Auto test strip Ql (U) Small Abnormal Negative [facility] Interpretation and review of laboratory results Abnormal [facility] Ketones (U) [Mass/Vol] Negative Negat lizzie mg/dL [facility] Leukocyte esterase Auto test strip Ql (U) Trace Abnormal Negative [facility] h Mucus Auto (Urine sed) [#/Area] Rare None Seen, Rare /lpf [facility] Nitrite Auto test strip Ql (U) Negative Negative [facility] pH (U) 5.0 [pH] [facility] Protein (U) [Mass/Vol] Negative Negat lizzie mg/dL [facility] RBC Auto (Urine sed) [#/Area] 3 [facility] Specific gravity (U) [Rel density] 1.014 [facility] Urobilinogen (U) [Mass/Vol] <2.0 <2.0 mg/dL [facility] WBC Auto (Urine sed) [#/Area] 1 [facility] Microscopic examinat ion is performed on all urinalysis samples and only positive findings are reported. The test for blood on the chemical analytic portion of urinalysis may also be positive due to hemoglobinuria and myoglobinuria and if red blood cells are present they are quantified by microscopic examination. [facility] hCG, Serum, Qualitativeon Beta HCG ( test) Ql Negative Negative [facility] Interpretation and review of laboratory results Normal [facility] Negative: The result is less than or equal to 5 mIU/mL of HCG. [facility] Vital Signs Date Time Vital Sign Value Performing Clinician Facility 10-24-2023 12:44-0400 Body mass index (BMI) [Ratio] 26.03 kg/m2 Barbara Merritt MD Work Phone: [facility] 10-24-2023 12:44-0400 Body temperature 98.4 [degF] Barbara Merritt MD Work Phone: [facility] 10-24-2023 12:44-0400 Body weight 75.4 kg Barbara Merritt MD Work Phone: [facility] 10-24-2023 12:44-0400 Diastolic blood pressure 72 mm[Hg] Barbara Merritt MD Work Phone: [facility] 10-24-2023 12:44-0400 Heart rate 89 /min Barbara Merritt MD Work Phone: [facility] 10-24-2023 12:44-0400 Systolic blood pressure 117 mm[Hg] Barbara Merritt MD Work Phone: [facility] 10-16-2023 15:18-0400 Body mass index (BMI) [Ratio] 26.63 kg/m2 Marietriny Stevens N[employer].RN CARDIOLOGY Work Phone: [facility] 10-16-2023 15:18-0400 Body weight 77.11 kg Marietriny Stevens [employer].RN CARDIOLOGY Work Phone: [facility] 10-16-2023 15:18-0400 Diastolic blood pressure 65 mm[Hg] Marie Rodney [employer].RN CARDIOLOGY Work Phone: [facility] 10-16-2023 15:18-0400 Heart rate 90 /min Marie Stevens [employer].RN CARDIOLOGY Work Phone: [facility] 10-16-2023 15:18-0400 Systolic blood pressure 100 mm[Hg] Marie Stevens [employer].RN CARDIOLOGY Work Phone: [facility] 09-25-2023 15:15-0400 Diastolic blood pressure 80 mm[Hg] Megan Kern PA-C Work Phone: [facility] 09-25-2023 15:15-0400 Heart rate 84 /min Megan Kern PA-C Work Phone: [facility] 09-25-2023 15:15-0400 Respiratory rate 14 /min Megan LIN-C Work Phone: [facility] 09-25-2023 15:15-0400 Systolic blood pressure 122 mm[Hg] Megan Kern PA-C Work Phone: [facility] 08-03-2023 11:08-0500 Body height 170.2 cm Kelvin Shelton [employer].RN CARDIOLOGY Work Phone: [facility] 08-03-2023 11:08-0500 Body weight 70.31 kg Kelvin Shelton [employer].RN CARDIOLOGY Work Phone: [facility] 08-03-2023 11:08-0500 Diastolic blood pressure 70 mm[Hg] Kelvin Shelton [employer].RN CARDIOLOGY Work Phone: [facility] 08-03-2023 11:08-0500 Heart rate 67 /min Kelvin Shelton [employer].RN CARDIOLOGY Work Phone: [facility] 08-03-2023 11:08-0500 SaO2% (BldA) [Mass fraction] 99 % Kelvin Shelton [employer].RN CARDIOLOGY Work Phone: [facility] 08-03-2023 11:08-0500 Systolic blood pressure 110 mm[Hg] Kelvin Shelton [employer].RN CARDIOLOGY Work Phone: [facility] 08-01-2023 13:09-0500 Body height 170 cm Noa Krizman DO Work Phone: [facility] 08-01-2023 13:09-0500 Body temperature 98.2 [degF] Noa Krizman DO Work Phone: [facility] 08-01-2023 13:09-0500 Body weight 74.1 kg Noa Krizman DO Work Phone: [facility] 08-01-2023 13:09-0500 Diastolic blood pressure 78 mm[Hg] Noa Krizman DO Work Phone: [facility] 08-01-2023 13:09-0500 Heart rate 76 /min Noa Krizman DO Work Phone: [facility] 08-01-2023 13:09-0500 SaO2% (BldA) [Mass fraction] 98 % Noa Gauthier DO Work Phone: [facility] 08-01-2023 13:09-0500 Systolic blood pressure 110 mm[Hg] Noa Gauthier DO Work Phone: [facility] 07-31-2023 09:00-0500 Diastolic blood pressure 62 mm[Hg] Eneida Morales PT, DPT Work Phone: [facility] 07-31-2023 09:00-0500 Systolic blood pressure 102 mm[Hg] Eneida Morales PT, DPT Work Phone: [facility] 07-27-2023 09:19-0500 Body height 170.2 cm Jay Phillips MD Work Phone: [facility] 07-27-2023 09:19-0500 Body weight 73.48 kg Jay Phillips MD Work Phone: [facility] 07-27-2023 09:19-0500 SaO2% (BldA) [Mass fraction] 100 % Jay Phillips MD Work Phone: [facility] 02-02-2023 13:08-0400 Body height 170.2 cm Karel Lopez MD Work Phone: [facility] 02-02-2023 13:08-0400 Body weight 81.65 kg Karel Lopez MD Work Phone: [facility] 02-02-2023 13:08-0400 Diastolic blood pressure 71 mm[Hg] Karel Lopez MD Work Phone: [facility] 02-02-2023 13:08-0400 Heart rate 98 /min Karel Lopez MD Work Phone: [facility] 02-02-2023 13:08-0400 SaO2% (BldA) [Mass fraction] 99 % Karel Lopez MD Work Phone: [facility] 02-02-2023 13:08-0400 Systolic blood pressure 119 mm[Hg] Karel Lopez MD Work Phone: [facility] 12-21-2022 09:24-0400 Diastolic blood pressure 86 mm[Hg] Rubin Verde MD Work Phone: [facility] 12-21-2022 09:24-0400 Heart rate 87 /min Rubin Verde MD Work Phone: [facility] 12-21-2022 09:24-0400 SaO2% (BldA) [Mass fraction] 97 % Rubin Verde MD Work Phone: [facility] 12-21-2022 09:24-0400 Systolic blood pressure 124 mm[Hg] Rubin Verde MD Work Phone: [facility] 12-15-2022 11:19-0400 Body height 170.2 cm Kelvin Shelton APRN.RN CARDIOLOGY Work Phone: [facility] 12-15-2022 11:19-0400 Body weight 83.64 kg Kelvin Shelton [employer].RN CARDIOLOGY Work Phone: [facility] 12-15-2022 11:19-0400 Diastolic blood pressure 81 mm[Hg] Kelvin Shelton APRN.RN CARDIOLOGY Work Phone: [facility] 12-15-2022 11:19-0400 Heart rate 85 /min Kelvin Shelton APRN.RN CARDIOLOGY Work Phone: [facility] 12-15-2022 11:19-0400 SaO2% (BldA) [Mass fraction] 100 % Kelvin Shelton APRN.RN CARDIOLOGY Work Phone: [facility] 12-15-2022 11:19-0400 Systolic blood pressure 123 mm[Hg] Kelvin Shelton APRN.RN CARDIOLOGY Work Phone: [facility] 10-17-2022 12:00-0400 Diastolic blood pressure 132 mm[Hg] Jennifer Godfrey DO Work Phone: [facility] 10-17-2022 12:00-0400 Heart rate 115 /min Jennifer Godfrey DO Work Phone: [facility] [employer] 10-17-2022 12:00-0400 SaO2% (BldA) [Mass fraction] 95 % Jennifer Croftbal DO Work Phone: [facility] [employer] 10-17-2022 12:00-0400 Systolic blood pressure 162 mm[Hg] Jennifer Croftbal DO Work Phone: [facility] [employer] 10-17-2022 11:59-0400 Body height 170.2 cm Jennifre Croftbal DO Work Phone: [facility] [employer] 10-17-2022 11:59-0400 Body mass index (BMI) [Ratio] 28.66 kg/m2 Jennifer Croftbal DO Work Phone: [facility] [employer] 10-17-2022 11:59-0400 Body temperature 99.39 [degF] Jennifer Godfrey DO Work Phone: [facility] [employer] 10-17-2022 11:59-0400 Body weight 83.01 kg Jennifer Godfrey DO Work Phone: [facility] [employer] 10-17-2022 11:59-0400 Respiratory rate 20 /min Jennifer Godfrey DO Work Phone: [facility] 10-14-2022 10:59-0400 Body height 170.2 cm Etienne Vinson MD Work Phone: [facility] 10-14-2022 10:59-0400 Body weight 79.38 kg Etienne Vinson MD Work Phone: [facility] 10-14-2022 10:59-0400 Diastolic blood pressure 68 mm[Hg] Etienne Vinson MD Work Phone: [facility] 10-14-2022 10:59-0400 Heart rate 83 /min Etienne Vinson MD Work Phone: [facility] 10-14-2022 10:59-0400 SaO2% (BldA) [Mass fraction] 99 % Etienne Vinson MD Work Phone: [facility] 10-14-2022 10:59-0400 Systolic blood pressure 123 mm[Hg] Etienne iVnson MD Work Phone: [facility] 10-04-2022 17:09-0400 Body weight 81.19 kg Jeremy Madrid MD Work Phone: [facility] 10-04-2022 17:09-0400 Diastolic blood pressure 70 mm[Hg] Jeremy Madrid MD Work Phone: [facility] 10-04-2022 17:09-0400 Systolic blood pressure 121 mm[Hg] Jeremy Madrid MD Work Phone: [facility] 10-01-2022 11:07-0400 Body height 170.2 cm Elsi Crystalm PA-C Work Phone: [facility] 10-01-2022 11:07-0400 Body mass index (BMI) [Ratio] 28.66 kg/m2 Elsi Crystalm PA-C Work Phone: [facility] 10-01-2022 11:07-0400 Body temperature 98.8 [degF] Elsi Crystalm PA-C Work Phone: [facility] 10-01-2022 11:07-0400 Body weight 83.01 kg Elsi Crystalm PA-C Work Phone: [facility] 10-01-2022 11:07-0400 Diastolic blood pressure 79 mm[Hg] Elsi Crystalm PA-C Work Phone: [facility] 10-01-2022 11:07-0400 Heart rate 81 /min Elsi Crystalm PA-C Work Phone: [facility] 10-01-2022 11:07-0400 Systolic blood pressure 117 mm[Hg] Elsi Crystalm PA-C Work Phone: [facility] 09-05-2022 14:15-0400 Body height 170.2 cm Cisco Garcia MD Work Phone: [facility] 09-05-2022 14:15-0400 Body mass index (BMI) [Ratio] 28.22 kg/m2 Cisco Garcia MD Work Phone: [facility] 09-05-2022 14:15-0400 Body temperature 97.5 [degF] Cisco Garcia MD Work Phone: [facility] 09-05-2022 14:15-0400 Body weight 81.74 kg Cisco Garcia MD Work Phone: [facility] 09-05-2022 14:15-0400 Diastolic blood pressure 87 mm[Hg] Cisco Garcia MD Work Phone: [facility] 09-05-2022 14:15-0400 Heart rate 95 /min Cisco Garcia MD Work Phone: [facility] 09-05-2022 14:15-0400 SaO2% (BldA) [Mass fraction] 95 % Cisco Garcia MD Work Phone: [facility] Comment on above: Room air 09-05-2022 14:15-0400 Systolic blood pressure 119 mm[Hg] Cisco Garcia MD Work Phone: [facility] 09-02-2022 13:42-0400 Body height 170.2 cm Elsi LIN-C Work Phone: [facility] 09-02-2022 13:42-0400 Body mass index (BMI) [Ratio] 28.19 kg/m2 Elsi LIN-C Work Phone: [facility] 09-02-2022 13:42-0400 Body temperature 97.81 [degF] Elsi Lucas PA-C Work Phone: [facility] 09-02-2022 13:42-0400 Body weight 81.65 kg Elsi Lucas PA-C Work Phone: [facility] 09-02-2022 13:42-0400 Diastolic blood pressure 78 mm[Hg] Elsi Shayy PA-C Work Phone: [facility] 09-02-2022 13:42-0400 Heart rate 111 /min Elsi Sanchesramm PA-C Work Phone: [facility] 09-02-2022 13:42-0400 Systolic blood pressure 139 mm[Hg] Elsi Shayy PA-C Work Phone: [facility] 08-15-2022 09:41-0500 Body height 170.2 cm Elsieyad SanchesShayy PA-C Work Phone: [facility] 08-15-2022 09:41-0500 Body mass index (BMI) [Ratio] 27.88 kg/m2 Elsieyad SanchesShayy PA-C Work Phone: [facility] 08-15-2022 09:41-0500 Body weight 80.74 kg Elsi Shayy PA-C Work Phone: [facility] 08-10-2022 13:47-0500 Diastolic blood pressure 70 mm[Hg] Mark Poe MORTGAGE PROCESSING CLERK Work Phone: [facility] 08-10-2022 13:47-0500 Heart rate 66 /min Mark Poe MORTGAGE PROCESSING CLERK Work Phone: [facility] 08-10-2022 13:47-0500 Respiratory rate 17 /min Mark Poe MORTGAGE PROCESSING CLERK Work Phone: [facility] 08-10-2022 13:47-0500 SaO2% (BldA) [Mass fraction] 100 % Mark Poe MORTGAGE PROCESSING CLERK Work Phone: [facility] 08-10-2022 13:47-0500 Systolic blood pressure 154 mm[Hg] Mark Poe MORTGAGE PROCESSING CLERK Work Phone: [facility] 08-10-2022 11:44-0500 Body height 170.2 cm Mark Poe MORTGAGE PROCESSING CLERK Work Phone: [facility] 08-10-2022 11:43-0500 Body temperature 98.29 [degF] Mark Poe MORTGAGE PROCESSING CLERK Work Phone: [facility] 08-05-2022 10:14-0500 Body height 170.2 cm Mark Poe RN CARDIOLOGY Work Phone: [facility] 08-05-2022 10:14-0500 Body mass index (BMI) [Ratio] 28.04 kg/m2 Mark Poe RN CARDIOLOGY Work Phone: [facility] 08-05-2022 10:14-0500 Body temperature 98.8 [degF] Mark Poe RN CARDIOLOGY Work Phone: [facility] 08-05-2022 10:14-0500 Body weight 81.19 kg Mark Poe RN CARDIOLOGY Work Phone: [facility] 08-05-2022 10:14-0500 Diastolic blood pressure 87 mm[Hg] Mark Poe RN CARDIOLOGY Work Phone: [facility] 08-05-2022 10:14-0500 Heart rate 80 /min Mark Poe RN CARDIOLOGY Work Phone: [facility] 08-05-2022 10:14-0500 Systolic blood pressure 123 mm[Hg] Mark Poe RN CARDIOLOGY Work Phone: [facility] 08-04-2022 15:00-0500 Body height 170.2 cm Raul Truong DO Work Phone: [facility] 08-04-2022 15:00-0500 Body weight 81.19 kg Raul Truong DO Work Phone: [facility] 08-04-2022 15:00-0500 Diastolic blood pressure 70 mm[Hg] Raul Truong DO Work Phone: [facility] 08-04-2022 15:00-0500 Heart rate 84 /min Raul Truong DO Work Phone: [facility] 08-04-2022 15:00-0500 SaO2% (BldA) [Mass fraction] 97 % Raul Truong DO Work Phone: [facility] 08-04-2022 15:00-0500 Systolic blood pressure 121 mm[Hg] Raul Truong DO Work Phone: [facility] 07-29-2022 13:00-0500 Diastolic blood pressure 82 mm[Hg] [address] 07-29-2022 13:00-0500 Heart rate 58 /min [address] 07-29-2022 13:00-0500 Respiratory rate 16 /min [address] 07-29-2022 13:00-0500 SaO2% (BldA) [Mass fraction] 99 % [address] 07-29-2022 13:00-0500 Systolic blood pressure 113 mm[Hg] [address] 07-29-2022 12:55-0500 Body temperature 97.9 [degF] [address] 07-29-2022 11:49-0500 Body height 170.[address] 07-29-2022 11:49-0500 Body mass index (BMI) [Ratio] 28.57 kg/m2 [address] 07-29-2022 11:49-0500 Body weight 82.[address] 07-28-2022 09:17-0500 Body height 170.2 cm Mark Poe RN CARDIOLOGY Work Phone: [facility] 07-28-2022 09:17-0500 Body mass index (BMI) [Ratio] 28.66 kg/m2 Mark Poe RN CARDIOLOGY Work Phone: [facility] 07-28-2022 09:17-0500 Body temperature 97.7 [degF] Mark Poe RN CARDIOLOGY Work Phone: [facility] 07-28-2022 09:17-0500 Body weight 83.01 kg Mark Poe RN CARDIOLOGY Work Phone: [facility] 07-28-2022 09:17-0500 Diastolic blood pressure 68 mm[Hg] Mark Poe RN CARDIOLOGY Work Phone: [facility] 07-28-2022 09:17-0500 Heart rate 79 /min Mark Poe RN CARDIOLOGY Work Phone: [facility] 07-28-2022 09:17-0500 Systolic blood pressure 105 mm[Hg] Mark Poe RN CARDIOLOGY Work Phone: [facility] 07-20-2022 08:31-0500 Body height 170.2 cm Mark Poe RN CARDIOLOGY Work Phone: [facility] 07-20-2022 08:31-0500 Body mass index (BMI) [Ratio] 28.51 kg/m2 Mark Poe RN CARDIOLOGY Work Phone: [facility] 07-20-2022 08:31-0500 Body temperature 98.8 [degF] Mark Poe RN CARDIOLOGY Work Phone: [facility] 07-20-2022 08:31-0500 Body weight 82.56 kg Mark Poe RN CARDIOLOGY Work Phone: [facility] 07-20-2022 08:31-0500 Diastolic blood pressure 77 mm[Hg] Mark Poe RN CARDIOLOGY Work Phone: [facility] 07-20-2022 08:31-0500 Heart rate 112 /min Mark Poe RN CARDIOLOGY Work Phone: [facility] 07-20-2022 08:31-0500 Systolic blood pressure 134 mm[Hg] Mark Poe RN CARDIOLOGY Work Phone: [facility] 07-01-2022 09:57-0500 Body height 170.2 cm Kelvin Shelton APRN.RN CARDIOLOGY Work Phone: [facility] 07-01-2022 09:57-0500 Body weight 80.29 kg Kelvin Cat NUTTER UP.RN CARDIOLOGY Work Phone: [facility] 07-01-2022 09:57-0500 Diastolic blood pressure 60 mm[Hg] Kelvin Shelton NUTTER UP.RN CARDIOLOGY Work Phone: [facility] 07-01-2022 09:57-0500 Heart rate 85 /min Kelvin Shelton NUTTER UP.RN CARDIOLOGY Work Phone: [facility] 07-01-2022 09:57-0500 SaO2% (BldA) [Mass fraction] 96 % Kelvin Shelton NUTTER UP.RN CARDIOLOGY Work Phone: [facility] 07-01-2022 09:57-0500 Systolic blood pressure 127 mm[Hg] Kelvin Shelton SHAY.RN CARDIOLOGY Work Phone: [facility] 06-15-2022 14:21-0500 Body height 170.2 cm Etienne Vinson MD Work Phone: [facility] 06-15-2022 14:21-0500 Body weight 83.46 kg Etienne Vinson MD Work Phone: [facility] 06-15-2022 14:21-0500 Diastolic blood pressure 72 mm[Hg] Etienne Vinson MD Work Phone: [facility] 06-15-2022 14:21-0500 Heart rate 80 /min Etienne Vinson MD Work Phone: [facility] 06-15-2022 14:21-0500 SaO2% (BldA) [Mass fraction] 99 % Etienne Vinson MD Work Phone: [facility] 06-15-2022 14:21-0500 Systolic blood pressure 124 mm[Hg] Etienne Vinson MD Work Phone: [facility] 05-26-2022 15:21-0500 Body height 170.2 cm Raul Truong DO Work Phone: [facility] 05-26-2022 15:21-0500 Body weight 79.38 kg Raul Truong DO Work Phone: [facility] 05-26-2022 15:21-0500 Diastolic blood pressure 82 mm[Hg] Raul Truong DO Work Phone: [facility] 05-26-2022 15:21-0500 Heart rate 101 /min Raul Truong DO Work Phone: [facility] 05-26-2022 15:21-0500 Respiratory rate 16 /min Raul Truong DO Work Phone: [facility] 05-26-2022 15:21-0500 SaO2% (BldA) [Mass fraction] 97 % Raul Truong DO Work Phone: [facility] 05-26-2022 15:21-0500 Systolic blood pressure 127 mm[Hg] Raul Truong DO Work Phone: [facility] 05-02-2022 09:55-0500 Body height 170.2 cm Harish Horava DO Work Phone: [facility] 05-02-2022 09:55-0500 Body mass index (BMI) [Ratio] 27.72 kg/m2 Harish Horava DO Work Phone: [facility] 05-02-2022 09:55-0500 Body temperature 98.29 [degF] Harish Horava DO Work Phone: [facility] 05-02-2022 09:55-0500 Body weight 80.29 kg Harish Horava DO Work Phone: [facility] 05-02-2022 09:55-0500 Diastolic blood pressure 81 mm[Hg] Harish Horava DO Work Phone: [facility] 05-02-2022 09:55-0500 Heart rate 78 /min Harish Horava DO Work Phone: [facility] 05-02-2022 09:55-0500 SaO2% (BldA) [Mass fraction] 97 % Harish Horava DO Work Phone: [facility] 05-02-2022 09:55-0500 Systolic blood pressure 122 mm[Hg] Harish Horava DO Work Phone: [facility] 04-25-2022 07:14-0500 Body height 170.2 cm Etienne Vinson MD Work Phone: [facility] 04-25-2022 07:14-0500 Body weight 77.11 kg Etienne Vinson MD Work Phone: [facility] 04-25-2022 07:14-0500 Diastolic blood pressure 75 mm[Hg] Etienne Vinosn MD Work Phone: [facility] 04-25-2022 07:14-0500 Heart rate 105 /min Etienne Vinson MD Work Phone: [facility] 04-25-2022 07:14-0500 SaO2% (BldA) [Mass fraction] 100 % Etienne Vinson MD Work Phone: [facility] 04-25-2022 07:14-0500 Systolic blood pressure 127 mm[Hg] Etienne Vinson MD Work Phone: [facility] 03-09-2022 11:05-0400 Diastolic blood pressure 82 mm[Hg] Nolberto Perez MD Work Phone: [facility] 03-09-2022 11:05-0400 Heart rate 80 /min Nolberto Perez MD Work Phone: [facility] 03-09-2022 11:05-0400 Respiratory rate 14 /min Nolberto Perez MD Work Phone: [facility] 03-09-2022 11:05-0400 Systolic blood pressure 131 mm[Hg] Nolberto Perez MD Work Phone: [facility] 02-28-2022 11:49-0400 Body temperature 97.7 [degF] Priscila Carranza MD Work Phone: [facility] 02-28-2022 11:49-0400 Diastolic blood pressure 86 mm[Hg] Priscila Carranza MD Work Phone: [facility] 02-28-2022 11:49-0400 Heart rate 64 /min Priscila Carranza MD Work Phone: [facility] 02-28-2022 11:49-0400 Respiratory rate 16 /min Priscila Carranza MD Work Phone: [facility] 02-28-2022 11:49-0400 SaO2% (BldA) [Mass fraction] 99 % Priscila Carranza MD Work Phone: [facility] 02-28-2022 11:49-0400 Systolic blood pressure 121 mm[Hg] Priscila Carranza MD Work Phone: [facility] 02-27-2022 21:00-0400 Body height 170.2 cm Priscila Carranza MD Work Phone: [facility] 02-27-2022 21:00-0400 Body mass index (BMI) [Ratio] 27.25 kg/m2 Priscila Carranza MD Work Phone: [facility] 02-27-2022 21:00-0400 Body weight 78.93 kg Priscila Carranza MD Work Phone: [facility] 02-21-2022 11:04-0400 Body height 170.2 cm Nolberto Perez MD Work Phone: [facility] 02-21-2022 11:04-0400 Body mass index (BMI) [Ratio] 27.25 kg/m2 Nolberto Perez MD Work Phone: [facility] 02-21-2022 11:04-0400 Body weight 78.93 kg Nolberto Perez MD Work Phone: [facility] 02-21-2022 11:04-0400 Diastolic blood pressure 86 mm[Hg] Nolberto Perez MD Work Phone: [facility] 02-21-2022 11:04-0400 Heart rate 72 /min Nolberto Perez MD Work Phone: [facility] 02-21-2022 11:04-0400 SaO2% (BldA) [Mass fraction] 98 % Nolberto Perez MD Work Phone: [facility] 02-21-2022 11:04-0400 Systolic blood pressure 149 mm[Hg] Nolberto Perez MD Work Phone: [facility] 02-18-2022 07:34-0400 Body height 170.2 cm Wero Fields PA-C Work Phone: [facility] 02-18-2022 07:34-0400 Body mass index (BMI) [Ratio] 27.25 kg/m2 Wero Reckner PA-C Work Phone: [facility] 02-18-2022 07:34-0400 Body temperature 97.3 [degF] Wero Reckner PA-C Work Phone: [facility] 02-18-2022 07:34-0400 Body weight 78.93 kg Wero Reckner PA-C Work Phone: [facility] 02-18-2022 07:34-0400 Diastolic blood pressure 85 mm[Hg] Wero Reckner PA-C Work Phone: [facility] 02-18-2022 07:34-0400 Heart rate 75 /min Wero Reckner PA-C Work Phone: [facility] 02-18-2022 07:34-0400 SaO2% (BldA) [Mass fraction] 98 % Wero Reckner PA-C Work Phone: [facility] 02-18-2022 07:34-0400 Systolic blood pressure 128 mm[Hg] Wero Reckner PA-C Work Phone: [facility] 06-14-2021 10:33-0500 Body height 165.1 cm Harish Horava DO Work Phone: [facility] 06-14-2021 10:33-0500 Body mass index (BMI) [Ratio] 29.89 kg/m2 Harish Horava DO Work Phone: [facility] 06-14-2021 10:33-0500 Body temperature 97.7 [degF] Harish Horava DO Work Phone: [facility] 06-14-2021 10:33-0500 Body weight 81.47 kg Harish Horava DO Work Phone: [facility] 06-14-2021 10:33-0500 Diastolic blood pressure 71 mm[Hg] Harish Horava DO Work Phone: [facility] 06-14-2021 10:33-0500 Heart rate 63 /min Harish Horava DO Work Phone: [facility] 06-14-2021 10:33-0500 SaO2% (BldA) [Mass fraction] 95 % Harish Horava DO Work Phone: [facility] 06-14-2021 10:33-0500 Systolic blood pressure 108 mm[Hg] Harish Horava DO Work Phone: [facility] 11-20-2020 04:32-0400 Diastolic blood pressure 67 mm[Hg] Jaja Truong NUTTER UP - CNM Work Phone: [facility] Work Phone: 11-20-2020 04:32-0400 Heart rate 74 /min Jaja Truong APRN - CNM Work Phone: [facility] Work Phone: 11-20-2020 04:32-0400 Respiratory rate 16 /min Jaja Truong APRN - CNM Work Phone: [facility] Work Phone: 11-20-2020 04:32-0400 Systolic blood pressure 122 mm[Hg] Jaja Truong APRN - CNM Work Phone: [facility] Work Phone: 11-20-2020 02:27-0400 Body height 170.2 cm Jaja Truong APRN - CNM Work Phone: [facility] Work Phone: 11-20-2020 02:27-0400 Body mass index (BMI) [Ratio] 30.85 kg/m2 Jaja Truong APRN - CNM Work Phone: [facility] Work Phone: 11-20-2020 02:27-0400 Body weight 89.36 kg Jaja Truong APRN - CNM Work Phone: [facility] Work Phone: 11-20-2020 01:55-0400 Body temperature 98.6 [degF] Jaja Truong APRN - CNM Work Phone: [facility] Work Phone: 11-18-2020 02:28-0400 Body temperature 98.01 [degF] Jaja Truong NUTTER [employer] - CNM Work Phone: [facility] Work Phone: 11-18-2020 02:28-0400 Diastolic blood pressure 70 mm[Hg] Jaja Truong APRN - CNM Work Phone: [facility] Work Phone: 11-18-2020 02:28-0400 Heart rate 67 /min Jaja Truong APRN - CNM Work Phone: [facility] Work Phone: 11-18-2020 02:28-0400 Respiratory rate 16 /min Jaja Truong APRN - CNM Work Phone: [facility] Work Phone: 11-18-2020 02:28-0400 Systolic blood pressure 120 mm[Hg] Jaja Truong APRN - CNM Work Phone: [facility] Work Phone: 10-30-2020 20:32-0400 Body height 165.1 cm Elisabeth Myke DO Work Phone: [facility] 10-30-2020 20:32-0400 Body mass index (BMI) [Ratio] 29.12 kg/m2 Elisabeth Myke DO Work Phone: [facility] 10-30-2020 20:32-0400 Body temperature 98.71 [degF] Elisabeth Myke DO Work Phone: [facility] 10-30-2020 20:32-0400 Body weight 79.38 kg Elisabeth Myke DO Work Phone: [facility] 10-30-2020 20:32-0400 Diastolic blood pressure 62 mm[Hg] Elisabeth Myke DO Work Phone: [facility] 10-30-2020 20:32-0400 Heart rate 87 /min Elisabeth Myke DO Work Phone: [facility] 10-30-2020 20:32-0400 Respiratory rate 18 /min Elisabeth Myke DO Work Phone: [facility] 10-30-2020 20:32-0400 SaO2% (BldA) [Mass fraction] 100 % Elisabeth Myke DO Work Phone: [facility] 10-30-2020 20:32-0400 Systolic blood pressure 114 mm[Hg] Elisabeth Myke DO Work Phone: [facility] 09-08-2020 10:07-0400 BMI (Body Mass Index) 29.15 kg/m2 [facility] 09-08-2020 10:07-0400 Body Temperature 98.29 [degF] [facility] 09-08-2020 10:07-0400 Body weight 80.69 kg [facility] 09-08-2020 10:07-0400 BP Diastolic 70 mm[Hg] [facility] 09-08-2020 10:07-0400 BP Systolic 103 mm[Hg] [facility] 09-08-2020 10:07-0400 Height 166.4 cm [facility] 09-08-2020 10:07-0400 Pulse (Heart Rate) 76 /min [facility] 09-08-2020 10:07-0400 Pulse Oximetry 99 % [facility] 08-28-2020 18:18-0400 BP Diastolic 77 mm[Hg] [facility] 08-28-2020 18:18-0400 BP Systolic 112 mm[Hg] [facility] 08-28-2020 18:18-0400 Pulse (Heart Rate) 82 /min [facility] 08-28-2020 18:18-0400 Pulse Oximetry 100 % [facility] 08-28-2020 18:18-0400 Respiratory Rate 20 /min [facility] 08-28-2020 17:15-0400 BMI (Body Mass Index) 27.41 kg/m2 [facility] 08-28-2020 17:15-0400 Body Temperature 99.39 [degF] [facility] 08-28-2020 17:15-0400 Body weight 79.38 kg [facility] 08-28-2020 17:15-0400 Height 170.2 cm [facility] 07-14-2020 15:45-0500 BP Diastolic 66 mm[Hg] Esvin [facility]ies[facility] [place] 07-14-2020 15:45-0500 BP Systolic 120 mm[Hg] Esvin [facility] [place] [place] 07-14-2020 15:45-0500 Pulse (Heart Rate) 62 /min Esvin [facility] 07-14-2020 15:45-0500 Respiratory Rate 23 /min [facility] [place] 07-14-2020 15:30-0500 Pulse Oximetry 100 % Esvin [facility] [place] [place] 07-14-2020 11:44-0500 BMI (Body Mass Index) 25.53 kg/m2 [facility] [place] 07-14-2020 11:44-0500 Body Temperature 98.01 [degF] [facility] [place] 07-14-2020 11:44-0500 Body weight 73.94 kg Esvin [employer] Innovative Therapiesjake [facility] [place] 05-23-2020 12:57-0500 BMI (Body Mass Index) 23.49 kg/m2 [facility] 05-23-2020 12:57-0500 Body weight 68.04 kg [facility] [place] 05-23-2020 12:57-0500 BP Diastolic 59 mm[Hg] [facility] [place] 05-23-2020 12:57-0500 BP Systolic 115 mm[Hg] Preston Ema [facility] , [place] 05-23-2020 12:57-0500 Height 170.2 cm Preston Ema [facility] [place] 05-23-2020 12:57-0500 Pulse (Heart Rate) 71 /min [facility] [place] 05-23-2020 12:57-0500 Pulse Oximetry 100 % Preston Ema [facility] [place] 05-23-2020 12:57-0500 Respiratory Rate 16 /min Preston Ema [facility] [place] 05-20-2020 15:40-0500 Body Temperature 98.91 [degF] [facility] [place] 05-20-2020 15:40-0500 BP Diastolic 64 mm[Hg] [facility] [place] 05-20-2020 15:40-0500 BP Systolic 116 mm[Hg] [facility] [place] 05-20-2020 15:40-0500 Pulse (Heart Rate) 68 /min [facility] [place] 05-20-2020 15:40-0500 Pulse Oximetry 100 % [facility] [place] 05-20-2020 15:40-0500 Respiratory Rate 20 /min [facility] [place] 12-30-2019 08:34-0400 BMI (Body Mass Index) 25.61 kg/m2 Harish [facility] 12-30-2019 08:34-0400 Body Temperature 98.29 [degF] [facility] 12-30-2019 08:34-0400 Body weight 71.99 kg [facility] 12-30-2019 08:34-0400 BP Diastolic 72 mm[Hg] Harish [facility] 12-30-2019 08:34-0400 BP Systolic 108 mm[Hg] [facility] 12-30-2019 08:34-0400 Height 167.[address] [facility] 12-30-2019 08:34-0400 Pulse (Heart Rate) 67 /min [facility] 12-30-2019 08:34-0400 Pulse Oximetry 98 % Harish [facility] 12-30-2019 08:34-0400 Respiratory Rate 16 /min Harish [facility] Encounters Encounter Date Encounter Type Care Provider Facility Start: 12-12-2023 End: 12-12-2023 ambulatory Farooq Mcgraw MD Work Phone: Endocrinology Comment on above: Low serum cortisol l yung (Primary Dx) Dermatology Start: 12-12-2023 End: 12-12-2023 Telemedicine consultation with patient Farooq Mcgraw MD Work Phone: Endocrinology Start: 12-09-2023 ambulatory Barbara Merritt MD Work Phone: Rheumatology Comment on above: Skin Start: 12-05-2023 Patient Msg Rubin Verde MD Work Phone: [facility] Comment on above: Functional Movement Disorder referral Appointment Start: 12-04-2023 End: 12-04-2023 ambulatory KELVIN PRATT Facility:[facility] Start: 12-04-2023 End: 12-04-2023 Office outpatient visit 40 minutes Rubin Verde MD Work Phone: [facility] Comment on above: Chronic back pain, u nspecified back location, unspecified back pain laterality (Primary Dx); Abnormality of gait; Functional neurological symptom disorder with mixed symptoms Start: 11-29-2023 End: 11-29-2023 ambulatory Meet Landis PT Work Phone: [facility] Comment on above: Low back pain with b ilateral sciatica, unspecified back pain laterality, unspecified chronicity (Primary Dx); Abnormality of gait; Chronic back pain, unspecified back location, unspecified back pain laterality Start: 11-22-2023 ambulatory Kelvinkely Woodsber man NUTTER UP.RN CARDIOLOGY Work Phone: Neurology Comment on above: Appt Start: 11-16-2023 End: 11-17-2023 ambulatory KELVIN PRATT Facility:[facility] Start: 11-15-2023 End: 11-15-2023 ambulatory QUINTON MCKEON [facility] Comment on above: Sleep recording Start: 11-08-2023 End: 11-08-2023 ambulatory RUBIN VERDE Facility:[facility] Start: 11-08-2023 End: 11-08-2023 Patient encounter procedure Rubin Verde MD Work Phone: [facility] Comment on above: No-show for appointm ent (Primary Dx) Start: 11-08-2023 End: 11-08-2023 Telemedicine consultation with patient Rbuin Verde MD Work Phone: [facility] Start: 11-02-2023 Telephone encounter Noa Gauthier DO Work Phone: [facility] [place] Comment on above: Patient Question Start: 10-26-2023 ambulatory Noa fischer DO Work Phone: [facility] [place] Comment on above: Skin Start: 10-26-2023 Patient encounter procedure Sylvester Daniels MD Work Phone: Kidney Medicine Start: 10-24-2023 End: 10-24-2023 ambulatory Issa Henriquez MD Work Phone: Urology Start: 10-24-2023 End: 10-24-2023 Patient encounter procedure Issa Henriquez MD Work Phone: Urology Comment on above: Voiding dysfunction (Primary Dx); Fibromyalgia; Bilateral lumbar radiculopathy; Multiple neurological symptoms; Transient autonomic symptoms Recurrent aphthous s tomatitis (Primary Dx); Genital lesion, female; Fibromyalgia Start: 10-23-2023 Telephone encounter Barbara Merritt MD Work Phone: Rheumatology Comment on above: Medication Authoriza tion (Colchicine) Start: 10-23-2023 End: 10-23-2023 ambulatory Meet Landis PT Work Phone: [facility] Comment on above: Low back pain with b ilateral sciatica, unspecified back pain laterality, unspecified chronicity (Primary Dx); Abnormality of gait Start: 10-19-2023 Refill Barbara Merritt MD Work Phone: Rheumatology Comment on above: Refill Request Start: 10-17-2023 ambulatory Kelvin Gallagher man NUTTER UP.RN CARDIOLOGY Work Phone: Neurology Comment on above: Qsart Gabapentin Refill Request Start: 10-16-2023 End: 10-16-2023 ambulatory Kelvin Shelton NUTTER UP.RN CARDIOLOGY Work Phone: Neurology Comment on above: Procedure Qsart Start: 10-16-2023 End: 10-16-2023 Patient encounter procedure Manager Of Pharmacy Work Phone: Kidney [facility] Comment on above: Labile blood pressur e (Primary Dx) Palpitations (Primar y Dx); Transient autonomic symptoms Start: 10-15-2023 ambulatory Noa fischer DO Work Phone: Internal [facility] [place] Comment on above: Mouth Start: 10-10-2023 End: 10-10-2023 ambulatory CARRIE LEA Facility:[facility] Start: 10-10-2023 End: 10-10-2023 Patient encounter procedure Carrie Venu NUTTER UP.RN CARDIOLOGY Work Phone: Pain Management Comment on above: Lumbar spondylosis ( Primary Dx); S/P WHIT (total abdominal hysterectomy) Start: 10-09-2023 Telephone encounter Noa Nguyenjuanjovincent DO Work Phone: [facility] [place] Comment on above: Patient Question Start: 10-04-2023 End: 10-04-2023 ambulatory Kelvin Shelton APRN.RN CARDIOLOGY Work Phone: Neurology Comment on above: Labile blood pressur e (Primary Dx); Hypotension, unspecified hypotension type Start: 10-04-2023 End: 10-04-2023 Telemedicine consultation with patient Kelvin Woodsrichard DAY.RN CARDIOLOGY Work Phone: Neurology Start: 10-03-2023 ambulatory Barbara Merritt MD Work Phone: Rheumatology Comment on above: Diagnosis Start: 10-03-2023 Telephone encounter Noa Gauthier DO Work Phone: Internal [facility] Start: 10-02-2023 End: 10-02-2023 ambulatory [facility] Start: 09-29-2023 End: 09-29-2023 ambulatory Peggy Gilmore SHAY.RN CARDIOLOGY Work Phone: [facility] Comment on above: Weakness (Primary Dx ); Fasciculations; Abnormal involuntary movement; Blepharospasm Start: 09-29-2023 End: 09-29-2023 Telemedicine consultation with patient Peggy Gilmore SHAY.NIK Work Phone: [facility] Start: 09-27-2023 Telephone encounter Carrie jordan APRN.NIK Work Phone: Pain Management Comment on above: Appointment Start: 09-26-2023 ambulatory Carrie COLEMAN RN.NIK Work Phone: Pain Management Comment on above: visit Start: 09-26-2023 E-mail encounter fro m caregiver Carrie Lea APRN.NIK Work Phone: [facility] Start: 09-25-2023 End: 09-25-2023 ambulatory MEGAN KERN Facility:[facility] Start: 09-25-2023 End: 09-25-2023 Patient encounter procedure Megan Kern PA-C Work Phone: Neurology Comment on above: Chronic migraine wit hout aura, intractable, without status migrainosus (Primary Dx) Start: 09-23-2023 E-mail encounter fro m caregiver Jeremy Madrid MD Work Phone: [employer] [facility] Start: 09-23-2023 Patient encounter procedure Jeremy Madrid MD Work Phone: Pain Management Comment on above: Appointment Request Start: 09-22-2023 Refill Noa fischer DO Work Phone: Internal [facility] [place] Comment on above: Refill Request Medication ? Start: 09-21-2023 Refill Noa fischer DO Work Phone: Internal [facility] [place] Comment on above: Refill Request Start: 09-18-2023 End: 09-18-2023 Telemedicine consultation with patient Noa Gauthier DO Work Phone: [address] Start: 09-18-2023 End: 09-18-2023 ambulatory Noa Gauthier DO Work Phone: Internal [facility] [place] Comment on above: Lumbar spondylosis ( Primary Dx); Vitamin B12 deficiency Start: 09-16-2023 ambulatory Jeremy Greer Work Phone: Pain Management Comment on above: Back Start: 09-14-2023 Chart abstracting Chris Diallo MD Work Phone: Kidney Medicine Comment on above: Abstract Start: 09-08-2023 End: 09-08-2023 Patient encounter procedure Noa Gauthier DO Work Phone: [facility] [place] Comment on above: APPOINTMENT CANCELLE D (Primary Dx) Start: 09-08-2023 End: 09-08-2023 Telemedicine consultation with patient Noa Gauthier DO Work Phone: [employer] [facility] Start: 09-06-2023 End: 09-06-2023 Telemedicine consultation with patient Kelvin Pratt SHAY.RN CARDIOLOGY Work Phone: [facility] Start: 09-06-2023 End: 09-06-2023 ambulatory Kelvin Pratt NUTTER UP.RN CARDIOLOGY Work Phone: Sleep Disorders [facility] Comment on above: Excessive sleepiness (Primary Dx); Parasomnia, unspecified type; Hypersomnia; Chronic insomnia; Sleep paralysis; RLS (restless legs syndrome) Start: 09-04-2023 End: 09-04-2023 ambulatory Farooq Mcgraw MD Work Phone: Endocrinology Comment on above: Low serum cortisol l evel (Primary Dx) Start: 09-04-2023 End: 09-04-2023 Telemedicine consultation with patient Farooq Mcgraw MD Work Phone: [facility] Start: 09-01-2023 ambulatory Barbara Merritt MD Work Phone: Rheumatology Comment on above: Skin pictures Start: 08-31-2023 ambulatory Noa fischer DO Work Phone: Internal Medicine [place] Comment on above: Additional mouth Mouth Mouth sores Start: 08-21-2023 End: 08-21-2023 ambulatory NOA GAUTHIER Facility:[facility] Start: 08-21-2023 End: 08-21-2023 Patient encounter procedure Noa Gauthier DO Work Phone: Internal Medicine [place] Comment on above: APPOINTMENT CANCELLE D (Primary Dx) Start: 08-21-2023 End: 08-21-2023 Telemedicine consultation with patient Noa Gauthier DO Work Phone: [address] Start: 08-16-2023 End: 08-16-2023 Telemedicine consultation with patient Noa Gauthier DO Work Phone: [address] Start: 08-16-2023 End: 08-16-2023 ambulatory Noa Gauthier DO Work Phone: Internal Medicine [place] Comment on above: Labile blood pressur e (Primary Dx); POTS (postural orthostatic tachycardia syndrome); Transient autonomic symptoms Mouth sore example Start: 08-14-2023 ambulatory Kelvin fischer APRN.RN CARDIOLOGY Work Phone: Neurology Comment on above: Labs Start: 08-14-2023 E-mail encounter fro m caregiver Kelvin Shelton APRN.RN CARDIOLOGY Work Phone: [facility] Start: 08-04-2023 End: 08-07-2023 Evaluation and management of inpatient SAROJ GETACHEW Facility:[facility] Start: 08-03-2023 End: 08-03-2023 ambulatory Ashley Paige RN NURSE TABLE TOP TILE SETTER Comment on above: Results, Lab Labs Start: 08-03-2023 E-mail encounter fro m caregiver Kelvin Shelton APRN.RN CARDIOLOGY Work Phone: [facility] Start: 08-03-2023 Follow-up encounter Kelvin franco APRN.RN CARDIOLOGY Work Phone: Neurology Comment on above: Follow up please jose luis greer Start: 08-03-2023 Telephone encounter Kelvin franco APRN.RN CARDIOLOGY Work Phone: Neurology Comment on above: Results Start: 08-03-2023 End: 08-03-2023 Patient encounter procedure Kelvin Shelton APRN.RN CARDIOLOGY Work Phone: Neurology Comment on above: B12 deficiency (Prim mehran Dx); Paresthesia of skin; Hypotension, unspecified hypotension type; Labile blood pressure; Vasovagal syncope; Bradycardia; Muscle cramp; Disorder of the autonomic nervous system, unspecified Start: 08-02-2023 ambulatory Angeline (Rn) Robert BEAUCHAMP NURSE TABLE TOP TILE SETTER Comment on above: Dizziness Start: 08-01-2023 End: 08-01-2023 ambulatory PHYSICIAN NO [facility] Ambulato ry Start: 08-01-2023 End: 08-01-2023 Patient encounter procedure Noa Gauthier DO Work Phone: Internal Medicine [place] Comment on above: Labile blood pressur e (Primary Dx); POTS (postural orthostatic tachycardia syndrome); Transient autonomic symptoms Start: 07-31-2023 End: 07-31-2023 ambulatory Eneida Morales PT, DPT Work Phone: [facility] Comment on above: Chronic back pain, u nspecified back location, unspecified back pain laterality; Abnormality of gait Start: 07-27-2023 End: 07-27-2023 Office consultation new/estab patient 60 min Jay Phillips MD Work Phone: Preventive Cardiology Comment on above: Palpitations (Primar y Dx) Start: 07-27-2023 End: 07-27-2023 ambulatory KAVITA GAMA Facility:[facility] Start: 07-26-2023 End: 07-26-2023 ambulatory Megan Kern PA-C Work Phone: Neurology Comment on above: Chronic migraine wit hout aura, intractable, without status migrainosus (Primary Dx); Migraine with aura and without status migrainosus, not intractable Start: 07-26-2023 End: 07-26-2023 Telemedicine consultation with patient Megan Kern PA-C Work Phone: [facility] Start: 07-25-2023 ambulatory Kelvin fischer APRN.RN CARDIOLOGY Work Phone: Neurology Comment on above: Blood pressure Start: 07-24-2023 End: 07-24-2023 ambulatory Nico Олег CCC-BOAT TESTER Work Phone: [facility] Comment on above: Dysphonia (Primary D x); Multiple neurological symptoms; Dysphagia, unspecified type Start: 07-20-2023 End: 07-20-2023 Subsequent hospital visit by physician Kavita Gama NUTTER UP - RN CARDIOLOGY Work Phone: [facility] Laboratory Start: 07-20-2023 End: 07-20-2023 ambulatory Kelvin Tommy Cat NUTTER UP.RN CARDIOLOGY Work Phone: Neurology Comment on above: Symptoms Per Kelvin Shelton request for BP calibration Methocarbomol Start: 07-20-2023 Letter encounter Kelvin Woodsmax selam NUTTER UP.RN CARDIOLOGY Work Phone: Neurology Comment on above: Letter from PCP Start: 07-17-2023 ambulatory Kelvin Gallagher vincent NUTTER UP.RN CARDIOLOGY Work Phone: Neurology Comment on above: High BP Start: 07-16-2023 ambulatory Kelvin fischer NUTTER UP.RN CARDIOLOGY Work Phone: Neurology Comment on above: VITALS FOR 3 days tw ice a day Medical File informa tion Start: 07-13-2023 ambulatory Kelvin fischer NUTTER UP.RN CARDIOLOGY Work Phone: Neurology Comment on above: BP readings Start: 07-10-2023 End: 07-10-2023 ambulatory KAVITA GAMA Facility:[facility] Start: 06-30-2023 End: 06-30-2023 ambulatory KAVITA GAMA Facility:[facility] Start: 06-27-2023 End: 06-27-2023 ambulatory MICHELLE OSORIO [facility] Start: 06-19-2023 End: 06-19-2023 ambulatory MEGAN KERN Facility:[facility] Start: 06-15-2023 End: 06-17-2023 ambulatory JAJA TRUONG [facility] Start: 06-15-2023 End: 06-17-2023 Subsequent hospital visit by physician Jaja Truong NUTTER UP - CNM Work Phone: [facility] Ultrasound Comment on above: Abdominal pain, unsp ecified abdominal location Start: 06-13-2023 End: 06-13-2023 ambulatory KAVITA DAVEYER Facility:[facility] Start: 04-18-2023 End: 04-20-2023 ambulatory Rubin Verde MD Work Phone: [facility] Comment on above: Chronic pain center Start: 03-31-2023 End: 04-01-2023 Emergency department patient visit DAMIEN LANDON Facility:[facility] Start: 03-30-2023 ambulatory Harish Estevez RN NURSE TABLE TOP TILE SETTER Comment on above: back and tailbone pa in Start: 03-24-2023 End: 03-24-2023 ambulatory MOHINDER GARCIA [facility] Start: 03-08-2023 End: 03-08-2023 ambulatory MEGAN KERN Facility:[facility] Start: 02-28-2023 End: 02-28-2023 ambulatory Rubin Verde MD Work Phone: [facility] Comment on above: Chronic back pain, u nspecified back location, unspecified back pain laterality (Primary Dx); Abnormal involuntary movement Start: 02-28-2023 End: 02-28-2023 Telemedicine consultation with patient Rubin Verde MD Work Phone: [facility] Start: 02-02-2023 End: 02-02-2023 ambulatory KAREL LOPEZ Facility:[facility] Start: 02-02-2023 End: 02-02-2023 Patient encounter procedure Karel Lopez MD Work Phone: Neurology Comment on above: Muscle twitching (Pr imary Dx); Multiple neurological symptoms; Myofascial pain dysfunction syndrome; Disturbance of skin sensation; Transient autonomic symptoms; Fibromyalgia; Functional neurological symptom disorder with mixed symptoms; Concern about neurological disease without diagnosis Start: 01-30-2023 End: 01-30-2023 ambulatory Rubin Verde MD Work Phone: Neurology Comment on above: Fasciculations (Prim mehran Dx); Hyperreflexia; Neuropathy; Weakness Start: 01-30-2023 End: 01-30-2023 Telemedicine consultation with patient Rubin Verde MD Work Phone: [facility] Start: 01-25-2023 End: 01-25-2023 ambulatory KAVITA GAMA Facility:[facility] Start: 01-25-2023 End: 01-25-2023 Subsequent hospital visit by physician M[facility] (I-Stat/1.5t) Work Phone: Radiology Comment on above: Spinal stenosis of c ervical region [M48.02] Hyperreflexia [R29.2 ] Start: 01-10-2023 End: 01-10-2023 ambulatory KAVITA GAMA Neurology Start: 01-10-2023 End: 01-10-2023 Patient encounter procedure Emg 2 Neur Main (Max Weight: 1000) Work Phone: [facility] Start: 01-04-2023 End: 01-04-2023 Patient encounter procedure Skin Biopsy Work Phone: [facility] Start: 01-04-2023 End: 01-04-2023 ambulatory KAVITA GAMA Neurology Comment on above: Arrived Start: 01-02-2023 End: 01-02-2023 ambulatory KAVITA GAMA Facility:[facility] Start: 12-28-2022 ambulatory Rubin Verde MD Work Phone: [facility] Comment on above: Videos sent Start: 12-23-2022 ambulatory Megan flores PA-C Work Phone: Neurology Comment on above: Mri results Start: 12-22-2022 End: 12-23-2022 ambulatory PHYSICIAN [facility] Start: 12-21-2022 End: 12-21-2022 ambulatory KAVITA GAMA Facility:[facility] Start: 12-21-2022 End: 12-21-2022 ambulatory KAVITA GAMA Facility:[facility] Start: 12-21-2022 End: 12-21-2022 Patient encounter procedure Rubin Verde MD Work Phone: [facility] Comment on above: Spinal stenosis of c ervical region (Primary Dx); Hyperreflexia; Fasciculations; Weakness; B12 deficiency; Neuropathy; Functional tremor; Vitamin B6 deficiency; Spinal stenosis of lumbar region, unspecified whether neurogenic claudication present Start: 12-15-2022 End: 12-15-2022 ambulatory KELVIN SHELTON Facility:[facility] Start: 12-15-2022 End: 12-15-2022 Patient encounter procedure Kelvin Shelton APRN.RN CARDIOLOGY Work Phone: Neurology Comment on above: Action tremor (Prima ry Dx); Orthostatic lightheadedness; Tachycardia; Disturbance of skin sensation; Degeneration of lumbar intervertebral disc Start: 12-12-2022 ambulatory Megan LIN-C Work Phone: Neurology Comment on above: Emgality? Start: 11-25-2022 ambulatory HARISH GARZA [facility] Start: 11-23-2022 End: 11-24-2022 ambulatory Shira Preciado PA-C [facility] Start: 11-14-2022 End: 11-14-2022 Subsequent hospital visit by physician Kavita Hernandez CNP Work Phone: [facility] Laboratory Comment on above: Behcet's disease (HC C) Start: 11-10-2022 End: 11-10-2022 Subsequent hospital visit by physician [facility] Tilt Table Study Room [facility] Stress Lab Comment on above: Palpitations; Lightheaded; Dizziness; Chest tightness; SOB (shortness of breath); Vision changes Start: 11-09-2022 ambulatory Kelvin fischer NUTTER UP.RN CARDIOLOGY Work Phone: Neurology Comment on above: Symptoms? Start: 11-05-2022 ambulatory Megan LIN-C Work Phone: Neurology Comment on above: Ubrelvy / triptan Start: 10-19-2022 End: 10-19-2022 ambulatory Megan LIN-C Work Phone: Neurology Comment on above: Chronic migraine wit hout aura, intractable, without status migrainosus (Primary Dx); Migraine with aura and without status migrainosus, not intractable Start: 10-19-2022 End: 10-19-2022 Telemedicine consultation with patient Megan Erlin HOWELL Work Phone: [facility] Start: 10-17-2022 End: 10-17-2022 Emergency department patient visit Jennifer Godfrey DO Work Phone: [facility] ED Comment on above: Anxiety state (Prima ry Dx) Start: 10-14-2022 End: 10-14-2022 Subsequent hospital visit by physician Xr Main Qb1 Radiology Comment on above: Scoliosis of lumbar spine, unspecified scoliosis type [M41.9] Start: 10-14-2022 End: 10-14-2022 Patient encounter procedure Etienne Vinson MD Work Phone: Neurology Comment on above: Autonomic dysfunctio n (Primary Dx); Orthostatic lightheadedness Start: 10-12-2022 End: 10-13-2022 ambulatory Jameson Bazan MD Facility[facility] Start: 10-11-2022 Telephone encounter Jeremy Jimenez ud, MD Work Phone: Internal Medicine [place] Comment on above: Patient Update (Pt e ntered (3)attachments of Outside MRI results that she would like to review please. Thank you. /) Start: 10-07-2022 ambulatory Etienne Vinson MD Work Phone: Neurology Comment on above: Mri Question Start: 10-05-2022 ambulatory Megan flores PA-C Work Phone: [facility] Start: 10-05-2022 Patient encounter procedure Megan Kern PA-C Work Phone: Neurology Comment on above: Appointment Start: 10-04-2022 End: 10-04-2022 ambulatory SOPHIE YOUNGER Facility:[facility] Start: 10-04-2022 E-mail encounter jeromy moreira caregiver [facility] Provider [facility] Start: 10-04-2022 End: 10-04-2022 Patient encounter procedure [facility] Provider [facility] Comment on above: Regarding appointmen t with [facility] Chronic insomnia (Pr imary Dx); Major depression, recurrent, chronic (HCC); EVA (generalized anxiety disorder); PTSD (post-traumatic stress disorder) Annular tear of cerv ical disc (Primary Dx); Scoliosis of lumbar spine, unspecified scoliosis type; Lumbar herniated disc; Degeneration of lumbar intervertebral disc; Discogenic low back pain; Bilateral lumbar radiculopathy; Lumbar spondylosis Start: 10-04-2022 End: 10-04-2022 Telemedicine consultation with patient Sophie Younger PSYD Work Phone: [facility] Start: 10-04-2022 ambulatory [facility] Start: 10-03-2022 ambulatory [facility] Start: 10-01-2022 End: 10-01-2022 ambulatory ELSI LUCAS [facility] Start: 10-01-2022 End: 10-01-2022 Office outpatient visit 15 minutes Elsi Lucas PA-C Work Phone: [facility] Comment on above: Vertigo (Primary Dx) ; Migraine with aura and without status migrainosus, not intractable; B12 deficiency Start: 09-30-2022 Orders Only Kelvin fischer APRN.RN CARDIOLOGY Work Phone: Neurology Comment on above: Scoliosis of lumbar spine, unspecified scoliosis type (Primary Dx); Lumbar herniated disc; Degeneration of lumbar intervertebral disc Start: 09-28-2022 ambulatory Megan flores PA-C Work Phone: Neurology Comment on above: Possible migraine? Start: 09-27-2022 End: 10-01-2022 ambulatory KASHMIR BELTRAN JR. [facility] Start: 09-17-2022 ambulatory Barbara Merritt MD Work Phone: Rheumatology Comment on above: Eyes Start: 09-16-2022 End: 09-16-2022 Patient encounter procedure Barbara Merritt MD Work Phone: Rheumatology Comment on above: Recurrent aphthous s tomatitis (Primary Dx); Genital lesion, female; Fibromyalgia Start: 09-08-2022 Telephone encounter Megan omer PA-C Work Phone: Neurology Comment on above: Appointment Start: 09-08-2022 End: 09-08-2022 ambulatory Charley Claros APRN.RN CARDIOLOGY Work Phone: Neurology Comment on above: Patient left without being seen (Primary Dx) Chronic migraine wit hout aura, intractable, without status migrainosus (Primary Dx); Migraine with aura and without status migrainosus, not intractable Start: 09-08-2022 End: 09-08-2022 Telemedicine consultation with patient Charley Claros APRN.RN CARDIOLOGY Work Phone: [facility] Start: 09-08-2022 End: 09-08-2022 Evaluation and management of inpatient Megan Kern PA-C Work Phone: Neurology Comment on above: APPOINTMENT CANCELLE D (Primary Dx); Intractable migraine with aura without status migrainosus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 [address] Follow Up-go over lab results Endocrinology Comment on above: Follow Up-go over lab results Start: 12-11-2023 End: 12-11-2023 ambulatory 12/11/2023 10:15 AM EDT OT/PT/Speech Visit [facility] [address] [place] [address] Meet Landis, PT [address] [place] [address] 2/8 visits back pain [facility] Comment on above: 2/8 visits back pain Start: 12-04-2023 End: 12-04-2023 Follow-up encounter [facility] Comment on above: 3 month follow up Follow up / neurolog ical symptoms Start: 12-04-2023 End: 12-04-2023 Patient encounter procedure 12/04/2023 8:15 AM EDT Office Visit Neurology [address] [place] [address] [facility] Comment on above: [facility] Start: 12-03-2023 End: 12-03-2023 Patient encounter procedure 12/03/2023 8:45 PM EDT Office Visit Neurology [address] [place] [address] Main, Psg Neur [address] [place] [address] PSG w/MSLT Neurology Comment on above: PSG w/MSLT Start: 11-29-2023 End: 11-29-2023 ambulatory 11/29/2023 8:45 AM EDT OT/PT/Speech Visit [facility] [address] [facility] [place] [place] [address] Meet Landis, PT [address] [place] [address] 2/8 visits back pain [facility] Comment on above: 2/8 visits back pain Start: 11-22-2023 End: 11-22-2023 Follow-up encounter 11/22/2023 10:00 AM EDT [facility] Neurology [address] [place] [address] Kelvin Shelton, NUTTER UP.RN CARDIOLOGY [address] [place] [address] Follow up qsart and various symptoms Neurology Comment on above: Follow up qsart and various symptoms Start: 11-17-2023 End: 11-17-2023 ambulatory 11/17/2023 1:00 PM EDT Results Only [facility] [address] [place] [address] [place] [address] [facility] Start: 11-17-2023 End: 11-17-2023 Patient encounter procedure Neurology Comment on above: ACT Excessive sleepiness ; Hypersomnia Start: 11-13-2023 End: 11-13-2023 Patient encounter procedure Speech Pathology Comment on above: FEES and videostroboscopy Start: 11-08-2023 End: 11-08-2023 ambulatory [facility] Comment on above: M54.9,G89.29 (ICD-10-CM) - Chronic back pain, unspecified back location, unspecified back pain laterality 2/8 visits M54.9,G89 .29 (ICD-10-CM) - Chronic back pain, unspecified back location, unspecified back pain laterality Start: 11-07-2023 End: 11-07-2023 Patient encounter procedure [facility] Comment on above: 6 wk post-op TLH BA 1/3 INCREASED BACK PAIN Start: 11-03-2023 End: 02-02-2024 TOX SCREEN ROUT UR TOX SCREEN ROUT UR Lab Routine Excessive sleepiness Hypersomnia Expected: 11/03/2023, Expires: 02/02/2024 [facility] Work Phone: Comment on above: Expected: 11/03/2023, Expires: 4 Start: 10-31-2023 End: 11-23-2024 US Kidney - bilateral and Urinary bladder US KIDNEY/BLADDER Radiology Routine Voiding dysfunction Expected: 10/31/2023, Expires: 11/23/2024 [facility] Comment on above: Expected: 10/31/2023, Expires: 5 Start: 10-30-2023 End: 10-30-2023 Patient encounter procedure 10/30/2023 10:00 AM EDT Office Visit Kidney Medicine [address] [place] [phone] Chris Gates MD [address] [place] [address] Labile blood pressure [R09.89]; POTS (postural orthostatic tachycardia syndrome) [G90.A Kidney Medicine Comment on above: Labile blood pressure [R09.89]; POTS (po stural orthostatic tachycardia syndrome) [G90.A Start: 10-27-2023 End: 10-27-2023 ambulatory 10/27/2023 11:30 AM EDT Results Only [facility] [address] [place] [address] [place] [address] [facility] Start: 10-25-2023 Depression Monitoring Depression Monitoring [facility] Start: 10-25-2023 End: 10-25-2023 Follow-up encounter 10/25/2023 11:00 AM EDT [facility] [address] [place] [address] Rubin Verde MD [address] [place], [place] [address] [place], [place] [id number] 3 month follow up [facility] Comment on above: 3 month follow up Start: 10-24-2023 End: 10-24-2023 Patient encounter procedure Rheumatology 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 Start: 10-23-2023 End: 10-23-2023 ambulatory 10/23/2023 11:00 AM EDT OT/PT/Speech Visit [facility] [address] [facility] [place] [address] Meet Landis, PT [address] [place] [address] M54.9,G89.29 (ICD-10-CM) - Chronic back pain, unspecified back location, unspecified back pain laterality [facility] Comment on above: M54.9,G89.29 (ICD-10-CM) - Chronic back pain, unspecified back location, unspecified back pain laterality Start: 10-16-2023 End: 10-16-2023 ambulatory Neurology Comment on above: Paresthesia of skin [R20.2] r QSART Start: 10-16-2023 End: 10-16-2023 Patient encounter procedure Preventive Cardiology Comment on above: f/u Vtach 24 HR BP Monitor Start: 10-11-2023 COVID-19 Vaccine (3 - Booster for Pfizer series) COVID-19 Vaccine (3 - Booster for Pfizer series) [facility] Comment on above: Postponed from 08/10/2021 (Patient Refus ed) Start: 10-11-2023 Depression Monitoring Depression Monitoring [facility] Start: 10-11-2023 End: 10-11-2023 Patient encounter procedure 10/11/2023 11:45 AM EDT Office Visit [facility] [address] [place] [address] Quinton Mckeon PA-C [address] [place] [address] 2 wk post-op [facility] 06/14 [facility] Comment on above: 2 wk post-op [facility] 06/14 Start: 10-10-2023 End: 10-10-2023 Patient encounter procedure 10/10/2023 12:00 PM EDT Office Visit Pain Management [address] [facility] [address] [place] [address] Carrie Lea, NUTTER UP.RN CARDIOLOGY [address] [place] [address] follow up Pain Management Comment on above: follow up Start: 10-09-2023 End: 10-09-2023 Patient encounter procedure Otolaryngology Comment on above: FEES and videostroboscopy Start: 10-06-2023 End: 10-06-2023 Follow-up encounter 10/06/2023 11:00 AM EDT [facility] [address] [facility] [address] [place] [address] Jeremy Madrid MD [address] [place] [address] Follow Up (Degenerative Condition) Pain Management Comment on above: Follow Up (Degenerative Condition) Start: 10-04-2023 End: 10-04-2023 Follow-up encounter 10/04/2023 10:00 AM EDT [facility] Neu[facility] [address] [place] [address] Kelvin Shelton, NUTTER UP.RN CARDIOLOGY [address] [place] [address] follow up after testing Neurology Comment on above: follow up after testing Start: 10-02-2023 End: 10-02-2023 Admission to same day surgery center 10/02/2023 1:30 PM EDT - 10/02/2023 3:50 PM EDT Surgery [facility] OR [address] [place] [address] Michelle Mota, DO [address] [place] [address] HYSTERECTOMY VAGINAL LAPAROSCOPIC ROBOTIC ASSISTED-POSSIBLE BSO, POSSIBLE LAPAROSCOPIC COLPOPEXY (TLH) [facility] OR Comment on above: HYSTERECTOMY VAGINAL LAPAROSCOPIC ROBOTI C ASSISTED-POSSIBLE BSO, POSSIBLE LAPAROSCOPIC COLPOPEXY (TLH) Start: 10-02-2023 End: 10-02-2023 Laps total hysterect 250 gm/< w/rmvl tube/ovary HYSTERECTOMY VAGINAL LAPAROSCOPIC ROBOTIC ASSISTED Pelvic pain Adenomyosis 10/02/2023 1:30 PM EDT [facility] Start: 10-02-2023 Subsequent hospital visit by physician 10/02/2023 1:30 PM EDT Hospital Encounter [facility] OR [address] [place] [address] Michelle Mota, DO [address] [place] [address] [facility] Start: 09-29-2023 End: 09-29-2023 Admission to same day surgery center 09/29/2023 8:50 AM EDT - 09/29/2023 11:10 AM EDT Surgery [facility] OR [address] [place] [address], [place] [address] Michelle Mota, DO [address] [place] [address] HYSTERECTOMY ABDOMINAL LAPAROSCOPIC-VAGINAL , POSSIBLE BSO, POSSIBLE LAPAROSCOPIC COLPOPEXY (TLH) [facility] OR Comment on above: HYSTERECTOMY ABDOMINAL LAPAROSCOPIC-VAGI NAL , POSSIBLE BSO, POSSIBLE LAPAROSCOPIC COLPOPEXY (TLH) Start: 09-29-2023 End: 09-29-2023 Laps total hysterect 250 gm/< w/rmvl tube/ovary HYSTERECTOMY ABDOMINAL LAPAROSCOPIC Pelvic pain Adenomyosis 09/29/2023 8:50 AM EDT [facility] Start: 09-29-2023 Subsequent hospital visit by physician 09/29/2023 8:50 AM EDT Hospital Encounter [facility] OR [address] [place] [address], [place] [address] Michelle Mota, DO [address] [place] [address] [facility] Start: 09-19-2023 End: 09-19-2023 Patient encounter procedure [facility] Comment on above: pre-op TLH BA 06/14 discuss surgery BA Start: 09-04-2023 End: 12-04-2023 Corticotropin [Mass/volume] in Plasma ACTH BLD Lab Routine Low serum cortisol level Expected: 09/04/2023, Expires: 12/04/2023 [facility] Work Phone: Comment on above: Expected: 09/04/2023, Expires: Start: 09-04-2023 End: 12-04-2023 Cortisol [Mass/volume] in Serum or Plasma CORTISOL BLD Lab Routine Low serum cortisol level Expected: 09/04/2023, Expires: 12/04/2023 [facility] Work Phone: Comment on above: Expected: 09/04/2023, Expires: Start: 09-04-2023 End: 12-04-2023 DHEA-S BLD DHEA-S BLD Lab Routine Low serum cortisol level Expected: 09/04/2023, Expires: 12/04/2023 [facility] Work Phone: Comment on above: Expected: 09/04/2023, Expires: Start: 08-21-2023 End: 08-21-2023 Patient encounter procedure 08/21/2023 1:20 PM EDT Office Visit [facility] [address] [place] [address] Kavita Gama NUTTER UP - RN CARDIOLOGY [address] [phone] 1 month [facility] Comment on above: 1 month Start: 08-10-2023 End: 08-10-2023 Patient encounter procedure 08/10/2023 8:40 AM EST Office Visit [facility] [address] [place] [address] Kavita Gama, NUTTER UP - RN CARDIOLOGY [address] [place] [address] 3 month cehck [facility] Comment on above: 3 month cehck Start: 08-03-2023 End: 11-02-2023 CELIAC SCREEN WITH REFLEX [facility] Work Phone: Comment on above: Expected: 08/03/2023, Expires: Start: 08-03-2023 End: 11-02-2023 INTRINSIC FACTOR BLOCKING AB [facility] Work Phone: Comment on above: Expected: 08/03/2023, Expires: 4 Start: 08-03-2023 End: 11-02-2023 Voltage-gated potassium channel Ab [Moles/volume] in Serum [facility] Work Phone: Comment on above: Expected: 08/03/2023, Expires: Start: 07-26-2023 End: 07-26-2023 Patient encounter procedure 07/26/2023 10:45 AM EST Office Visit [facility] Part [address] [place] [address] Mohinder Garcia MD [address] [place] [address], [address] [place] [address] Franklin [facility] Part [facility] Comment on above: reevauation DR Reid ONLY Start: 07-20-2023 End: 07-20-2023 Patient encounter procedure 07/20/2023 2:20 PM EST Office Visit [facility] [address] [place] [address] Kavita Gama, NUTTER UP - RN CARDIOLOGY [address] [place] [address] 6 month check up [facility] Comment on above: 6 month check up Start: 06-12-2023 Depression Assessment Depression Assessment [facility] Start: 05-18-2023 Screening for malignant neoplasm of cervix [facility] Start: 02-27-2023 Depression screening using PHQ-9 (Patient Health Questionnaire 9) score Depression Screening (PHQ-2/9) [facility] Start: 02-21-2023 End: 02-21-2023 Patient encounter procedure 02/21/2023 Office Visit Cardiology Kristina Jacobs MD [address] [place] [address] [place] [address] [facility] Start: 02-14-2023 End: 02-14-2023 Patient encounter procedure 02/14/2023 Office Visit Obstetrics and Gynecology Michelle Mota, DO [address] [place] [address] [facility] Start: 02-10-2023 Covid-19 Vaccine ( season) Covid-19 Vaccine ( season) [facility] Start: 02-10-2023 Influenza vaccination [facility] Start: 01-18-2023 End: 01-18-2023 Patient encounter procedure 01/18/2023 Office Visit Obstetrics and Gynecology Quinton Mckeon PA-C [address] [place] [address] [facility] Start: 01-10-2023 Influenza vaccination Flu vaccine (Season Ended) [facility] Start: 12-30-2022 End: 12-30-2022 Admission to same day surgery center 12/30/2022 Surgery IP Unit Michelle Mota DO [address] [place] [address] HYSTERECTOMY VAGINAL LAPAROSCOPIC ASSISTED (LAVH)- POSS BSO, POSS LAP COLPOPEXY [facility] OR Comment on above: HYSTERECTOMY VAGINAL LAPAROSCOPIC ASSIST ED (LAVH)- POSS BSO, POSS LAP COLPOPEXY Start: 12-30-2022 End: 12-30-2022 Laps total hysterect 250 gm/< w/rmvl tube/ovary HYSTERECTOMY VAGINAL LAPAROSCOPIC ASSISTED (LAVH) Chronic pelvic pain in female 12/30/2022 7:30 AM EDT [facility] Start: 12-30-2022 Subsequent hospital visit by physician 12/30/2022 Hospital Encounter IP Unit Michelle Mota, DO [address] [place] [address] [facility] Start: 12-27-2022 End: 12-27-2022 Patient encounter procedure 12/27/2022 Office Visit Obstetrics and Gynecology Michelle Mota, DO [address] [place], [place] [phone] [facility] Start: 12-21-2022 End: 02-20-2023 COPPER BLOOD [facility] Work Phone: Comment on above: Expected: 12/21/2022, Expires: 3 Start: 12-21-2022 End: 02-20-2023 Methylmalonate [Moles/volume] in Serum or Plasma [facility] Work Phone: Comment on above: Expected: 12/21/2022, Expires: 3 Start: 12-21-2022 End: 02-20-2023 Pyridoxine [Mass/volume] in Serum or Plasma [facility] Work Phone: Comment on above: Expected: 12/21/2022, Expires: 3 Start: 12-21-2022 End: 02-20-2023 Zinc [Mass/volume] in Serum or Plasma [facility] Work Phone: Comment on above: Expected: 12/21/2022, Expires: 3 Start: 12-15-2022 End: 02-14-2023 ANTI NEUTRO CYTO AB [facility] Work Phone: Comment on above: Expected: 12/15/2022, Expires: 3 Start: 12-15-2022 End: 02-14-2023 Tissue transglutaminase Ab panel - Serum [facility] Work Phone: Comment on above: Expected: 12/15/2022, Expires: 3 Start: 12-08-2022 End: 12-08-2022 Patient encounter procedure 12/08/2022 Office Visit Obstetrics and Gynecology Jaja Truong APRN - CNM [address] [place] [address] [facility] Start: 11-16-2022 End: 11-16-2022 Patient encounter procedure 11/16/2022 Office Visit Primary Care Kavita Gama, SHAY - RN CARDIOLOGY [address] [place] [address] [facility] Start: 11-14-2022 End: 11-14-2022 Patient encounter procedure 11/14/2022 Office Visit Cardiology Kristina Jacobs MD [address] [place] [address] [facility] Start: 11-10-2022 End: 11-10-2022 Patient encounter procedure [facility] Start: 10-25-2022 End: 10-25-2022 Patient encounter procedure 10/25/2022 11:15 AM EDT Office Visit [facility] [place] [address] Cisco Garcia MD [address] [place] [address] [facility] Start: 10-18-2022 End: 10-18-2022 Patient encounter procedure 10/18/2022 Office Visit Obstetrics and Gynecology Jaja Truong, SHAY - CNM [address] [place] [address] [facility] Start: 09-27-2022 End: 09-27-2022 Patient encounter procedure [facility] D[facility] Start: 09-05-2022 End: 09-05-2022 Patient encounter procedure 09/05/2022 Office Visit Rheumatology Cisco Garcia MD [address] [place] [address] [facility] Start: 08-24-2022 End: 08-24-2022 Patient encounter procedure 08/24/2022 Office Visit Obstetrics and Gynecology Jaja Truong, SHAY - CN [address] [facility] [address] [place], [place] [address] [facility] Start: 08-04-2022 End: 10-04-2022 TOX SCREEN ROUT UR TOX SCREEN ROUT UR Lab Routine Excessive sleepiness Parasomnia, unspecified type Hypersomnia Sleep paralysis Expected: 08/04/2022, Expires: 10/04/2022 [facility] Work Phone: Comment on above: Expected: 08/04/2022, Expires: 3 Start: 07-20-2022 Adolescent depression screening assessment Depression Screening [facility] Start: 07-20-2022 Hepatitis C screening Hepatitis C Screening [facility] Start: 07-20-2022 HIV screening HIV Screening [facility] Start: 07-20-2022 Lipid panel Cholesterol Screening (Lipid Panel) [facility] Start: 07-20-2022 Social Influencers of Health Screening Social Influenc[employer] of Health Screening [email or web address] Start: 07-01-2022 End: 08-31-2022 Alpha tocopherol [Mass/volume] in Serum or Plasma VITAMIN E/TOCOPHEROL Lab Routine Disturbance of skin sensation Expected: 07/01/2022, Expires: 08/31/2022 [facility] Work Phone: Comment on above: Expected: 07/01/2022, Expires: 3 Start: 07-01-2022 End: 08-31-2022 Calcium.ionized [Moles/volume] in Blood CALCIUM IONIZED BLOOD Lab Routine Muscle cramp Expected: 07/01/2022, Expires: 08/31/2022 [facility] Work Phone: Comment on above: Expected: 07/01/2022, Expires: 3 Start: 07-01-2022 End: 08-31-2022 Ceruloplasmin [Mass/volume] in Serum or Plasma CERULOPLASMIN BLD Lab Routine Disturbance of skin sensation Expected: 07/01/2022, Expires: 08/31/2022 [facility] Work Phone: Comment on above: Expected: 07/01/2022, Expires: 3 Start: 07-01-2022 End: 08-31-2022 Cobalamin (Vitamin B12) [Mass/volume] in Serum or Plasma VITAMIN B12 BLOOD Lab Routine Disturbance of skin sensation Expected: 07/01/2022, Expires: 08/31/2022 [facility] Work Phone: Comment on above: Expected: 07/01/2022, Expires: 3 Start: 07-01-2022 End: 08-31-2022 COPPER BLOOD COPPER BLOOD Lab Routine Disturbance of skin sensation Expected: 07/01/2022, Expires: 08/31/2022 [facility] Work Phone: Comment on above: Expected: 07/01/2022, Expires: 3 Start: 07-01-2022 End: 08-31-2022 Creatine kinase [Enzymatic activity/volume] in Serum or Plasma CK CREATINE KINASE Lab Routine Muscle cramp Expected: 07/01/2022, Expires: 08/31/2022 [facility] Work Phone: Comment on above: Expected: 07/01/2022, Expires: 3 Start: 07-01-2022 End: 08-31-2022 Magnesium [Mass/volume] in Serum or Plasma MAGNESIUM BLD Lab Routine Muscle cramp Expected: 07/01/2022, Expires: 08/31/2022 [facility] Work Phone: Comment on above: Expected: 07/01/2022, Expires: 3 Start: 07-01-2022 End: 08-31-2022 Methylmalonate [Moles/volume] in Serum or Plasma METHYLMALONIC ACID Lab Routine Disturbance of skin sensation Expected: 07/01/2022, Expires: 08/31/2022 [facility] Work Phone: Comment on above: Expected: 07/01/2022, Expires: 3 Start: 07-01-2022 End: 08-31-2022 Parathyrin.intact [Mass/volume] in Serum or Plasma PTH INTACT BLD Lab Routine Muscle cramp Expected: 07/01/2022, Expires: 08/31/2022 [facility] Work Phone: Comment on above: Expected: 07/01/2022, Expires: 3 Start: 07-01-2022 End: 08-31-2022 Tissue transglutaminase Ab panel - Serum TRANSGLUTAMINASE ABS Lab Routine Disturbance of skin sensation Expected: 07/01/2022, Expires: 08/31/2022 [facility] Work Phone: Comment on above: Expected: 07/01/2022, Expires: 3 Start: 07-01-2022 End: 08-31-2022 VITAMIN B1 (THIAMINE), WHOLE BLOOD VITAMIN B1 (THIAMINE), WHOLE BLOOD Lab Routine Disturbance of skin sensation Expected: 07/01/2022, Expires: 08/31/2022 [facility] Work Phone: Comment on above: Expected: 07/01/2022, Expires: 3 Start: 07-01-2022 End: 08-31-2022 Zinc [Mass/volume] in Serum or Plasma ZINC BLD Lab Routine Disturbance of skin sensation Expected: 07/01/2022, Expires: 08/31/2022 [facility] Work Phone: Comment on above: Expected: 07/01/2022, Expires: 3 Start: 06-14-2022 Depression screening using PHQ-9 (Patient Health Questionnaire 9) score Depression Screening (PHQ-2/9) [facility] Start: 06-14-2022 History and physical examination, annual for health maintenance Wellness Visit [facility] Start: 06-12-2022 DEPRESSION ASSESSMENT DEPRESSION ASSESSMENT [facility] Start: 05-26-2022 End: 11-22-2022 Ferritin [Mass/volume] in Serum or Plasma FERRITIN BLD Lab Routine RLS (restless legs syndrome) Expected: 05/26/2022, Expires: 11/22/2022 [facility] Work Phone: Comment on above: Expected: 05/26/2022, Expires: 3 Start: 05-26-2022 End: 11-22-2022 Iron and Iron binding capacity panel - Serum or Plasma IRON + TIBC Lab Routine RLS (restless legs syndrome) Expected: 05/26/2022, Expires: 11/22/2022 [facility] Work Phone: Comment on above: Expected: 05/26/2022, Expires: 3 Start: 04-18-2022 End: 04-18-2022 Patient encounter procedure 04/18/2022 Office Visit Neurology Nolberto Perez MD [address] [place] [address] [facility] Start: 04-11-2022 End: 04-11-2022 Patient encounter procedure 04/11/2022 Appointment Neurology Nolberto Perez MD [address] [place] [address] [facility] Start: 03-21-2022 End: 03-21-2022 Patient encounter procedure 03/21/2022 Office Visit Neurology Nolberto Perez MD [address] [place] [address] [facility] Start: 03-14-2022 End: 03-14-2022 Patient encounter procedure 03/14/2022 Appointment Radiology Nolberto Perez MD [address] [place] [address] [facility] Start: 02-21-2022 End: 02-21-2022 Patient encounter procedure 02/21/2022 Office Visit Neurology Nolberto Perez MD [address] [place] [address] [facility] Start: 02-10-2022 Influenza vaccination [facility] Start: 01-10-2022 Influenza vaccination Flu vaccine (#1) [facility] Start: 11-13-2021 COVID-19 Vaccine (3 - Booster for Pfizer series) COVID-19 Vaccine (3 - Booster for Pfizer series) [facility] Start: 08-10-2021 COVID-19 Vaccine (3 - Booster for Pfizer series) COVID-19 Vaccine (3 - Booster for Pfizer series) [facility] Start: 08-10-2021 COVID-19 VACCINE (3 - Pfizer series) COVID-19 VACCINE (3 - Pfizer series) [facility] Start: 06-14-2021 End: 06-14-2021 Patient encounter procedure 06/14/2021 Office Visit Primary Care Harish Garza DO [address] [address] [facility] Start: 06-12-2021 DEPRESSION ASSESSMENT DEPRESSION ASSESSMENT [facility] Start: 06-08-2021 End: 06-01-2022 Complete blood count with white cell differential, manual CBC and Differential Lab Routine Annual physical exam Expected: 06/08/2021 (Approximate), Expires: 06/01/2022 [facility] Work Phone: Comment on above: Expected: 06/08/2021 (Approximate), Expi res: 06/01/2022 Start: 06-08-2021 End: 06-01-2022 Comprehensive metabolic 2000 panel - Serum or Plasma Comprehensive Metabolic Panel Lab Routine Annual physical exam Expected: 06/08/2021 (Approximate), Expires: 06/01/2022 [facility] Comment on above: Expected: 06/08/2021 (Approximate), Expi res: 06/01/2022 Start: 06-08-2021 End: 06-01-2022 Hemoglobin A1c/Hemoglobin.total in Blood Hemoglobin A1c Lab Routine Annual physical exam Expected: 06/08/2021 (Approximate), Expires: 06/01/2022 [facility] Comment on above: Expected: 06/08/2021 (Approximate), Expi res: 06/01/2022 Start: 06-08-2021 End: 06-01-2022 Lipid 1996 panel - Serum or Plasma Lipid Panel Lab Routine Annual physical exam Expected: 06/08/2021 (Approximate), Expires: 06/01/2022 [facility] Comment on above: Expected: 06/08/2021 (Approximate), Expi res: 06/01/2022 Start: 06-08-2021 End: 06-01-2022 Thyrotropin [Units/volume] in Serum or Plasma TSH Lab Routine Annual physical exam Expected: 06/08/2021 (Approximate), Expires: 06/01/2022 [facility] Comment on above: Expected: 06/08/2021 (Approximate), Expi res: 06/01/2022 Start: 03-14-2021 Screening for malignant neoplasm of cervix Cervical cancer screen [place], [place] Start: 03-09-2021 COVID-19 Vaccine (2 - Pfizer 3-dose series) COVID-19 Vaccine (2 - Pfizer 3-dose series) [facility] Start: 02-10-2021 Influenza vaccination [facility] Start: 12-29-2020 Adolescent depression screening assessment Depression Screening (PHQ9) [facility] Start: 12-29-2020 Depression screening using PHQ-9 (Patient Health Questionnaire 9) score Depression Screening (PHQ9) [facility] Start: 12-08-2020 End: 12-08-2020 Patient encounter procedure 12/08/2020 Routine Obstetrics and Gynecology Michelle Mota DO [address] [place] [address] [phone] [facility] Start: 12-02-2020 End: 12-02-2020 Patient encounter procedure 12/02/2020 Routine Obstetrics and Gynecology Jaja Truong APRN - CNM [address] [place] [address] [phone] [facility] Start: 11-25-2020 End: 11-25-2020 Patient encounter procedure 11/25/2020 Routine Obstetrics and Gynecology Jaja Truong APRN - CNM [address] [place] [address] [phone] [facility] Start: 11-25-2020 End: 11-25-2020 Professional / ancillary services management 11/25/2020 Ancillary Procedure Obstetrics and Gynecology [facility] Start: 11-23-2020 End: 11-23-2020 Patient encounter procedure 11/23/2020 Routine Obstetrics and Gynecology Jaja Truong APRN - CNM [address] [place] [address] [phone] [facility] Start: 11-18-2020 End: 11-18-2020 Patient encounter procedure 11/18/2020 Routine Obstetrics and Gynecology Jaja Truong APRN - CNM [address] [place] [address] [phone] [facility] Start: 10-05-2020 End: 10-05-2020 Ancillary Procedure [facility] Start: 09-22-2020 End: 09-22-2020 Routine 09/22/2020 Routine Obstetrics and Gynecology Susie Ye, DO [address] [address] [facility] [employer] [facility] Start: 09-08-2020 End: 11-08-2020 Blood type and Indirect antibody screen panel - Blood Type and Screen Blood Bank Routine Herpes simplex type 2 (HSV-2) infection affecting , 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 Expected: 09/08/2020, Expires: 11/08/2020 [facility] Comment on above: Expected: 09/08/2020, Expires: Start: 09-08-2020 End: 11-08-2020 Complete blood count (hemogram) panel - Blood by Automated count CBC Lab Routine Herpes simplex type 2 (HSV-2) infection affecting , 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 Expected: 09/08/2020, Expires: 11/08/2020 [facility] Comment on above: Expected: 09/08/2020, Expires: Start: 09-08-2020 End: 09-08-2020 Initial [facility] [employer] [facility] Start: 07-27-2020 End: 07-27-2020 Ancillary Procedure [facility] Start: 07-15-2020 End: 07-15-2020 Office Visit 07/15/2020 Office Visit Cardiology Kristina Jacobs MD [address] [place] [address] [place] [address] [facility] Start: 06-16-2020 End: 06-16-2020 Ancillary Procedure [facility] Start: 05-27-2020 End: 05-27-2020 Routine 05/27/2020 Routine Obstetrics and Gynecology [facility] Start: 2020 HPV TESTING HPV TESTING [facility] Start: 2020 Screening for malignant neoplasm of cervix HPV Testing [facility] Start: 04-29-2020 End: 04-29-2020 Routine 04/29/2020 Routine Obstetrics and Gynecology Jaja Truong, NUTTER UP - CN [address] [facility] [place] [address] [facility] Start: 02-11-2020 Influenza vaccination Flu vaccine (#1) [place], [place] Start: 02-11-2020 Influenza vaccination given Sequential Influenza Vaccine (#1) [facility] Start: 12-30-2019 End: 12-29-2020 Standard chest X-ray XR Chest AP/PA and LAT Imaging Routine Preop examination Expected: 12/30/2019, Expires: 12/29/2020 [facility] Comment on above: Expected: 12/30/2019, Expires: 1 Start: 03-14-2019 Screening for malignant neoplasm of cervix Cervical cancer screen [place], [place] Start: 03-03-2018 Screening for malignant neoplasm of cervix Pap Sm[facility] Start: 2011 PAP TESTING PAP TESTING [facility] Start: 2011 Screening for malignant neoplasm of cervix [facility] Start: 2009 DTaP/Tdap/Td vaccine (1 - Tdap) DTaP/Tdap/Td vaccine (1 - Tdap) [place], [place] Start: 2009 Hepatitis B Vaccine (1 of 3 - 19+ 3-dose series) Hepatitis B Vaccine (1 of 3 - 19+ 3-dose series) [facility] Start: 2009 Urine microalbumin profile [facility] Start: 2008 HEPATITIS C SCREENING HEPATITIS C SCREENING [facility] Start: 2008 HIV SCREENING HIV SCREENING [facility] Start: 2006 COVID-19 Vaccine (1 of 2) COVID-19 Vaccine (1 of 2) [facility] [facility] Start: 2006 COVID-19 Vaccine (1) COVID-19 Vaccine (1) [facility] Start: 2005 HIV screening HIV SCREENING DISCUSSION [facility] Start: 2002 COVID-19 Vaccine (1) COVID-19 Vaccine (1) [facility] Start: 2002 Depression Screen Depression Screen [facility] Start: 1996 Pneumococcal 0-64 years Vaccine (1 - PCV) Pneumococcal 0-64 years Vaccine (1 - PCV) [facility] Start: 1996 PNEUMOCOCCAL VACCINE SERIES (1 - PCV) PNEUMOCOCCAL VACCINE SERIES (1 - PCV) [facility] Start: 1996 Pneumococcal Vaccine: Ped or At-Risk (1 - PCV) Pneumococcal Vaccine: Ped or At-Risk (1 - PCV) [facility] Start: 1996 Pneumococcal Vaccine: Ped or At-Risk (1 of 2 - PPSV23) Pneumococcal Vaccine: Ped or At-Risk (1 of 2 - PPSV23) [facility] Start: 1996 Pneumococcal Vaccine: Pediatrics (0 to 5 Years) and At-Risk Patients (6 to 64 Years) (1 - PCV) Pneumococcal Vaccine: Pediatrics (0 to 5 Years) and At-Risk Patients (6 to 64 Years) (1 - PCV) [facility] Start: 1995 COVID-19 Vaccine (1) COVID-19 Vaccine (1) [facility] Start: 1993 History and physical examination, annual for health maintenance Wellness [facility] Start: 1991 Varicella vaccine (1 of 2 - 2-dose childhood series) Varicella vaccine (1 of 2 - 2-dose childhood series) [facility] Start: 1990 HEPATITIS B (1 of 3 - 3-dose series) HEPATITIS B (1 of 3 - 3-dose series) [facility] Start: 1990 Hepatitis B Vaccine (1 of 3 - 3-dose series) Hepatitis B Vaccine (1 of 3 - 3-dose series) [facility] Start: 1990 Hepatitis B Vaccines (1 of 3 - 3-dose series) Hepatitis B Vaccines (1 of 3 - 3-dose series) [facility] Start: 1990 Hepatitis C screening HEPATITIS C VIRUS SCREENING [facility] Start: 1990 Smoking cessation education SMOKING CESSATION DISCUSSION [facility] End: 08-28-2020 12 lead ECG ECG 12 Lead ECG Routine Once for 1 Occurrences starting 08/28/2020 until 08/28/2020 [facility] Comment on above: Once for 1 Occurrences starting 08/29/19 21 until 08/28/2020 ACTIGRAPHY TESTING ACTIGRAPHY TE STING Procedures Routine Excessive sleepiness Parasomnia, unspecified type Hypersomnia Sleep paralysis 1 Occurrences starting 08/04/2022 [facility] Work Phone: Comment on above: 1 Occurrences starting 08/04/2022 ACTIGRAPHY TESTING ACTIGRAPHY TE STING Procedures Routine Excessive sleepiness Hypersomnia 1 Occurrences starting 09/19/2023 [facility] Work Phone: Comment on above: 1 Occurrences starting 09/19/2023 Ambulatory bp mntr w /sw 24 hr+ rec scan malika i&r AMBULATORY BP MONITORING Cardiology Routine Labile blood pressure Ordered: 08/03/2023 [facility] Work Phone: Comment on above: Ordered: 08/03/2023 End: 02-21-2023 MAXWELL measurement MAXWELL Lab Add-On Visual disturbance Fatigue, unspecified type Migraine with aura and without status migrainosus, not intractable Dizziness 1 Occurrences starting 02/21/2022 until 02/21/2023 [facility] Comment on above: 1 Occurrences starting 02/21/2022 until 02/21/2023 MAXWELL measurement MAXWELL Lab Add-On V isual disturbance Fatigue, unspecified type Migraine with aura and without status migrainosus, not intractable Dizziness 02/21/2022 1:03 PM EDT [facility] End: 11-14-2022 MAXWELL Screen With Reflex [facility] Work Phone: Comment on above: 1 Occurrences starting 11/14/2022 until 11/14/2022 End: 03-09-2023 B12/Folate B12/Folate Lab Routine Fatigue, unspecified type 1 Occurrences starting 03/09/2022 until 03/09/2023 [facility] Comment on above: 1 Occurrences starting 03/09/2022 until 03/09/2023 Bacteria identified Aer cx Nom (Unsp spec) Urine Aerobic Culture Microbiology Routine Herpes simplex type 2 (HSV-2) infection affecting , 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 Ordered: 09/08/2020 [facility] Comment on above: Ordered: 09/08/2020 End: 11-17-2020 Bacteria identified in Urine by Culture Urine culture Microbiology Routine One Time for 1 Occurrences starting 11/17/2020 until 11/17/2020 [employer] Phone: Comment on above: One Time for 1 Occurrences starting 01/2021 until 11/17/2020 End: 11-20-2020 Bacteria identified in Urine by Culture Urine culture Microbiology Routine One Time for 1 Occurrences starting 11/20/2020 until 11/20/2020 [employer] Phone: Comment on above: One Time for 1 Occurrences starting 11/10 until 11/20/2020 Blood copper measurement Copper, Serum Lab Routine 02/28/2022 11:42 AM EDT [employer] Work Phone: End: 02-21-2023 C reactive protein [Mass/volume] in Serum or Plasma CRP, Inflammation Lab Routine Visual disturbance Fatigue, unspecified type Migraine with aura and without status migrainosus, not intractable Dizziness 1 Occurrences starting 02/21/2022 until 02/21/2023 [facility] Comment on above: 1 Occurrences starting 02/21/2022 until 02/21/2023 C reactive protein [Mass/volume] in Serum or Plasma CRP, Inflammation Lab Routine Visual disturbance Fatigue, unspecified type Migraine with aura and without status migrainosus, not intractable Dizziness 02/21/2022 1:03 PM EDT [email or web address] End: 07-12-2022 C.trachomatis N.gonorrhoeae DNA [facility] [employer] Phone: Comment on above: 1 Occurrences starting 07/12/2022 until 07/12/2022 End: 04-01-2020 C.trachomatis N.gonorrhoeae DNA, Urine C.trachomatis N.gonorrhoeae DNA, Urine Microbiology Routine Amenorrhea Positive urine test Encounter for supervision of other normal in first trimester 1 Occurrences starting 04/01/2020 until 04/01/2020 [facility] Comment [facility] above: 1 Occurrences starting 04/01/2020 until 04/01/2020 C.trachomatis N.gonorrhoeae DNA, Urine C.trachomatis N.gonorrhoeae DNA, Urine Microbiology Routine Amenorrhea Positive urine test Encounter for supervision of other normal in first trimester 04/01/2020 1:30 PM EDT [facility] [place] End: 08-28-2020 Chlamydia trachomatis rRNA assay Chlamydia/GC/Trichomonas Amplified RNA Microbiology Routine Once for 1 Occurrences starting 08/28/2020 until 08/28/2020 [facility] Comment on above: Once for 1 Occurrences starting 08/29/19 until 08/28/2020 Chlamydia trachomati s rRNA assay Chlamydia/GC/Trichomonas Amplified RNA Microbiology Routine 08/28/2020 8:13 PM EDT [facility] End: 02-21-2023 Cobalamin (Vitamin B12) [Mass/volume] in Serum or Plasma Vitamin B12 Lab Routine Visual disturbance Fatigue, unspecified type Migraine with aura and without status migrainosus, not intractable Dizziness 1 Occurrences starting 02/21/2022 until 02/21/2023 [facility] Comment on above: 1 Occurrences starting 02/21/2022 until 02/21/2023 Cobalamin (Vitamin B 12) [Mass/volume] in Serum or Plasma Vitamin B12 Lab Routine Visual disturbance Fatigue, unspecified type Migraine with aura and without status migrainosus, not intractable Dizziness 02/21/2022 1:03 PM EDT [facility] End: 07-28-2023 Cobalamin (Vitamin B12) [Mass/volume] in Serum or Plasma Vitamin B12 Lab Routine B12 deficiency 1 Occurrences starting 07/28/2022 until 07/28/2023 [facility] Comment on above: 1 Occurrences starting 07/28/2022 until 07/28/2023 End: 11-10-2022 Continuous cardiac monitoring, >2 up to 14 days Continuous cardiac monitoring, >2 up to 14 days Cardiac Services Routine Palpitations Lightheaded Dizziness Chest tightness SOB (shortness of breath) Vision changes 1 Occurrences starting 11/10/2022 until 11/10/2022 [facility] [employer] Phone: Comment on above: 1 Occurrences starting 11/10/2022 until 11/10/2022 End: 11-17-2020 Culture, Strep B Screen, Vaginal/Rectal Culture, Strep B Screen, Vaginal/Rectal Microbiology Routine One Time for 1 Occurrences starting 11/17/2020 until 11/17/2020 [employer] Phone: Comment on above: One Time for 1 Occurrences starting 01/2021 until 11/17/2020 Culture, Strep B Scr een, Vaginal/Rectal Culture, Strep B Screen, Vaginal/Rectal Microbiology [employer] 11/17/2020 11:50 PM EDT [employer] Work Phone: End: 04-01-2020 Culture, Urine Culture, Urine Microbiology Routine Amenorrhea Positive urine test Encounter for supervision of other normal in first trimester 1 Occurrences starting 04/01/2020 until 04/01/2020 [facility] Comment on above: 1 Occurrences starting 04/01/2020 until 04/01/2020 Culture, Urine Culture, Urine Microbiology Routine Amenorrhea Positive urine test Encounter for supervision of other normal in first trimester 04/01/2020 1:30 PM EDT [employer] [place] End: 05-18-2020 Cytopathology procedure, preparation of smear, genital source PAP SMEAR Lab Routine Screening for cervical cancer 1 Occurrences starting 05/18/2020 until 05/18/2020 [facility] [place] Comment on above: 1 Occurrences starting 05/18/2020 until 05/18/2020 End: 07-27-2024 Echocardiography ECHO Cardiology Routine Palpitations 1 Occurrences starting 07/27/2023 until 07/27/2024 [facility] Work Phone: Comment on above: 1 Occurrences starting 07/27/2023 until 07/27/2024 End: 02-28-2022 EEG (STANDARD) [employer] Work Phone: Comment on above: Once for 1 Occurrences starting 02/29/20 until 02/28/2022 End: 03-09-2023 EEG Sleep deprived EEG Sleep deprived Neurology Routine Convulsions, unspecified convulsion type (HCC) 1 Occurrences starting 03/09/2022 until 03/09/2023 [employer] Work Phone: Comment on above: 1 Occurrences starting 03/09/2022 until 03/09/2023 EKG 12 Lead EKG 12 Lead ECG STAT 07/14/2020 11:55 AM EST [employer] [place] EKG 12 Lead EKG 12 Lead ECG STAT 10/17/2022 12:32 PM EDT [facility] Work Phone: End: 12-22-2023 EMG(NEURO/NI) EMG(NEURO/NI) EMG Routine Hyperreflexia Fasciculations Weakness 1 Occurrences starting 12/21/2022 until 12/22/2023 [facility] Work Phone: Comment on above: 1 Occurrences starting 12/21/2022 until 12/22/2023 End: 02-21-2023 Erythrocyte sedimentation rate Sedimentation Rate Lab Routine Visual disturbance Fatigue, unspecified type Migraine with aura and without status migrainosus, not intractable Dizziness 1 Occurrences starting 02/21/2022 until 02/21/2023 [facility] Comment on above: 1 Occurrences starting 02/21/2022 until 02/21/2023 Erythrocyte sedimentation rate Sedimentation Rate Lab Routine Visual disturbance Fatigue, unspecified type Migraine with aura and without status migrainosus, not intractable Dizziness 02/21/2022 1:03 PM EDT [facility] End: 02-21-2023 Extractable nuclear antigen antibody screening test IHSAN Screen (SSA/B,SM,TELESALES ADVISOR,SCL70,JO1) Lab Add-On Visual disturbance Fatigue, unspecified type Migraine with aura and without status migrainosus, not intractable Dizziness 1 Occurrences starting 02/21/2022 until 02/21/2023 [facility] Comment on above: 1 Occurrences starting 02/21/2022 until 02/21/2023 Extractable nuclear antigen antibody screening test IHSAN Screen (SSA/B,SM,TELESALES ADVISOR,SCL70,JO1) Lab Add-On Visual disturbance Fatigue, unspecified type Migraine with aura and without status migrainosus, not intractable Dizziness 02/21/2022 1:03 PM EDT [facility] FLUROURODYNAMICS WIT H EMG FLUROURODYNAMICS WITH EMG Procedures Routine Voiding dysfunction Ordered: 10/24/2023 [facility] Work Phone: Comment on above: Ordered: 10/24/2023 End: 02-21-2023 Folate [Mass/volume] in Serum or Plasma Folate Lab Routine Visual disturbance Fatigue, unspecified type Migraine with aura and without status migrainosus, not intractable Dizziness 1 Occurrences starting 02/21/2022 until 02/21/2023 [facility] Comment on above: 1 Occurrences starting 02/21/2022 until 02/21/2023 Folate [Mass/volume] in Serum or Plasma Folate Lab Routine Visual disturbance Fatigue, unspecified type Migraine with aura and without status migrainosus, not intractable Dizziness 02/21/2022 1:03 PM EDT [facility] End: 02-21-2023 Heavy Metals Screen, Blood Heavy Metals Screen, Blood Lab Routine Visual disturbance Fatigue, unspecified type Migraine with aura and without status migrainosus, not intractable Dizziness 1 Occurrences starting 02/21/2022 until 02/21/2023 [facility] Comment on above: 1 Occurrences starting 02/21/2022 until 02/21/2023 Heavy Metals Screen, Blood Heavy Metals Screen, Blood Lab Routine Visual disturbance Fatigue, unspecified type Migraine with aura and without status migrainosus, not intractable Dizziness 02/21/2022 5:03 PM EDT [facility] End: 02-21-2023 HEPATITIS PROFILE (ABC) Hepatitis Profile (ABC) Lab Routine Visual disturbance Fatigue, unspecified type Migraine with aura and without status migrainosus, not intractable Dizziness 1 Occurrences starting 02/21/2022 until 02/21/2023 [facility] Comment on above: 1 Occurrences starting 02/21/2022 until 02/21/2023 HEPATITIS PROFILE (ABC) Hepatiti s Profile (ABC) Lab Routine Visual disturbance Fatigue, unspecified type Migraine with aura and without status migrainosus, not intractable Dizziness 02/21/2022 1:03 PM EDT [facility] End: 02-21-2023 Human immunodeficiency virus antibody test HIV Antibody (HIV1/HIV2) Lab Add-On Visual disturbance Fatigue, unspecified type Migraine with aura and without status migrainosus, not intractable Dizziness 1 Occurrences starting 02/21/2022 until 02/21/2023 [facility] Comment on above: 1 Occurrences starting 02/21/2022 until 02/21/2023 Human immunodeficien cy virus antibody test HIV Antibody (HIV1/HIV2) Lab Add-On Visual disturbance Fatigue, unspecified type Migraine with aura and without status migrainosus, not intractable Dizziness 02/21/2022 1:03 PM EDT [facility] End: 02-21-2023 Measurement of Borrelia burgdorferi antibody Lyme Disease IgG/IgM w/Western Blot Reflex, Blood Lab Add-On Visual disturbance Fatigue, unspecified type Migraine with aura and without status migrainosus, not intractable Dizziness 1 Occurrences starting 02/21/2022 until 02/21/2023 [facility] Comment on above: 1 Occurrences starting 02/21/2022 until 02/21/2023 Measurement of Borre tonie burgdorferi antibody Lyme Disease IgG/IgM w/Western Blot Reflex, Blood Lab Add-On Visual disturbance Fatigue, unspecified type Migraine with aura and without status migrainosus, not intractable Dizziness 02/21/2022 1:03 PM EDT [facility] End: 02-18-2023 Molecular genetic test JAK2 [id number] Mutation Detection Lab Add-On Elevated hematocrit 1 Occurrences starting 02/18/2022 until 02/18/2023 [facility] Work Phone: Comment on above: 1 Occurrences starting 02/18/2022 until 02/18/2023 End: 02-21-2023 MR Brain With And Without Contrast MR Brain With And Without Contrast Imaging Routine Visual disturbance Fatigue, unspecified type Migraine with aura and without status migrainosus, not intractable Dizziness 1 Occurrences starting 02/21/2022 until 02/21/2023 [facility] Work Phone: Comment on above: 1 Occurrences starting 02/21/2022 until 02/21/2023 End: 01-20-2024 Mri spinal canal cervical w/o contrast matrl MRI CERVICAL SPINE WO IVCON Radiology Routine Spinal stenosis of cervical region 1 Occurrences starting 12/21/2022 until 01/20/2024 [facility] Work Phone: Comment on above: 1 Occurrences starting 12/21/2022 until 01/20/2024 End: 07-31-2023 Mri spinal canal lumbar w/o & w/contr matrl MRI LUMBAR SPINE WO/W IVCON Radiology Routine Paresthesia of saddle area Fecal smearing 1 Occurrences starting 07/01/2022 until 07/31/2023 [facility] Work Phone: Comment on above: 1 Occurrences starting 07/01/2022 until 07/31/2023 End: 01-20-2024 Mri spinal canal thoracic w/o contrast matrl MRI THORACIC SPINE WO IVCON Radiology Routine Hyperreflexia Weakness B12 deficiency 1 Occurrences starting 12/21/2022 until 01/20/2024 [facility] Work Phone: Comment on above: 1 Occurrences starting 12/21/2022 until 01/20/2024 End: 08-04-2023 MULTIPLE SLEEP LATENCY TEST MULTIPLE SLEEP LATENCY TEST Procedures Routine Excessive sleepiness Parasomnia, unspecified type Hypersomnia Sleep paralysis 1 Occurrences starting 08/04/2022 until 08/04/2023 [facility] Work Phone: Comment on above: 1 Occurrences starting 08/04/2022 until 08/04/2023 End: 09-18-2024 MULTIPLE SLEEP LATENCY TEST MULTIPLE SLEEP LATENCY TEST Procedures Routine Excessive sleepiness Parasomnia, unspecified type Hypersomnia Sleep paralysis 1 Occurrences starting 09/19/2023 until 09/18/2024 [facility] Work Phone: Comment on above: 1 Occurrences starting 09/19/2023 until 09/18/2024 End: 02-21-2023 Myasthenia gravis panel measurement MG Evaluation Adult Lab Routine Visual disturbance Fatigue, unspecified type Migraine with aura and without status migrainosus, not intractable Dizziness 1 Occurrences starting 02/21/2022 until 02/21/2023 [facility] Comment on above: 1 Occurrences starting 02/21/2022 until 02/21/2023 Myasthenia gravis pa tawanna measurement MG Evaluation Adult Lab Routine Visual disturbance Fatigue, unspecified type Migraine with aura and without status migrainosus, not intractable Dizziness 02/21/2022 1:03 PM EDT [facility] End: 08-28-2020 Neisseria gonorrhoeae nucleic acid detection Chlamydia/Gonorrhoeae Amplified RNA Microbiology Routine Once for 1 Occurrences starting 08/28/2020 until 08/28/2020 [facility] Comment on above: Once for 1 Occurrences starting 08/29/19 21 until 08/28/2020 Neisseria gonorrhoea e nucleic acid detection Chlamydia/Gonorrhoeae Amplified RNA Microbiology Routine 08/28/2020 8:13 PM EDT [facility] NEURO CARDIO AUTONOM IC REFLEX W/WO TILT NEURO CARDIO AUTONOMIC REFLEX W/WO TILT Procedures Routine Disturbance of skin sensation Ordered: 07/01/2022 [facility] Work Phone: Comment on above: Ordered: 07/01/2022 NEURO CARDIO AUTONOM IC REFLEX W/WO TILT NEURO CARDIO AUTONOMIC REFLEX W/WO TILT Procedures Routine Orthostatic lightheadedness Tachycardia Ordered: 12/15/2022 [facility] Work Phone: Comment on above: Ordered: 12/15/2022 NEURO QSART NEURO QSART Proc edures Routine Paresthesia of skin Disorder of the autonomic nervous system, unspecified Ordered: 08/03/2023 [facility] Work Phone: Comment on above: Ordered: 08/03/2023 Njx anes&/strd w/img tfrml edrl lmbr/sac ea lv INJ TRANSFRAM EPID ANES/STER LS MULTI Procedures Routine Scoliosis of lumbar spine, unspecified scoliosis type Lumbar herniated disc Degeneration of lumbar intervertebral disc Annular tear of cervical disc Discogenic low back pain Bilateral lumbar radiculopathy Lumbar spondylosis 1 Occurrences starting 10/04/2022 [facility] Work Phone: Comment on above: 1 Occurrences starting 10/04/2022 Njx dx/ther agt pvrt facet jt lmbr/sac 1 level NJX DX/THER AGT PVRT FACET JT LMBR/SAC 1 LEVEL Procedures Routine Scoliosis of lumbar spine, unspecified scoliosis type Lumbar herniated disc Degeneration of lumbar intervertebral disc Annular tear of cervical disc Discogenic low back pain Bilateral lumbar radiculopathy Lumbar spondylosis Ordered: 10/04/2022 [facility] Work Phone: Comment on above: Ordered: 10/04/2022 Nonrebreather mask oxygen [facility] Work Phone: Comment on above: As directed - RT (PRN) until discontinue d starting 11/17/2020 As directed - RT (MN N) until discontinued starting 11/20/2020 OUTSIDE VENDOR CARDI AC OUTPATIENT EXTENDED RHYTHM RECORDING (WITHOUT TELEMETRY) OUTSIDE VENDOR CARDIAC OUTPATIENT EXTENDED RHYTHM RECORDING (WITHOUT TELEMETRY) Holter Routine Muscle cramp Ordered: 08/03/2023 [facility] Work Phone: Comment on above: Ordered: 08/03/2023 End: 02-21-2023 Paraneoplastic antibody level Paraneoplastic Autoantibody Evaluation Lab Add-On Visual disturbance Fatigue, unspecified type Migraine with aura and without status migrainosus, not intractable Dizziness 1 Occurrences starting 02/21/2022 until 02/21/2023 [facility] Comment on above: 1 Occurrences starting 02/21/2022 until 02/21/2023 Paraneoplastic antib nimo level Paraneoplastic Autoantibody Evaluation Lab Add-On Visual disturbance Fatigue, unspecified type Migraine with aura and without status migrainosus, not intractable Dizziness 02/21/2022 1:03 PM EDT [facility] End: 02-21-2023 Phosphate [Mass/volume] in Serum or Plasma Phosphorus Lab Routine Visual disturbance Fatigue, unspecified type Migraine with aura and without status migrainosus, not intractable Dizziness 1 Occurrences starting 02/21/2022 until 02/21/2023 [facility] Comment on above: 1 Occurrences starting 02/21/2022 until 02/21/2023 Phosphate [Mass/volu me] in Serum or Plasma Phosphorus Lab Routine Visual disturbance Fatigue, unspecified type Migraine with aura and without status migrainosus, not intractable Dizziness 02/21/2022 1:03 PM EDT [facility] End: 02-21-2023 Plasma methylmalonic acid level Methylmalonic Acid, Blood Lab Add-On Visual disturbance Fatigue, unspecified type Migraine with aura and without status migrainosus, not intractable Dizziness 1 Occurrences starting 02/21/2022 until 02/21/2023 [facility] Comment on above: 1 Occurrences starting 02/21/2022 until 02/21/2023 Plasma methylmalonic acid level Methylmalonic Acid, Blood Lab Add-On Visual disturbance Fatigue, unspecified type Migraine with aura and without status migrainosus, not intractable Dizziness 02/21/2022 1:03 PM EDT [facility] End: 03-09-2023 Plasma methylmalonic acid level Methylmalonic Acid, Blood Lab Routine Fatigue, unspecified type 1 Occurrences starting 03/09/2022 until 03/09/2023 [facility] Comment on above: 1 Occurrences starting 03/09/2022 until 03/09/2023 End: 05-26-2023 Polysomnogram POLYSOMNOGRAM (PSG) Procedures Routine Snoring Excessive sleepiness Parasomnia, unspecified type 1 Occurrences starting 05/26/2022 until 05/26/2023 [facility] Work Phone: Comment on above: 1 Occurrences starting 05/26/2022 until 05/26/2023 End: 08-04-2023 Polysomnogram POLYSOMNOGRAM (PSG) Procedures Routine Excessive sleepiness Parasomnia, unspecified type Hypersomnia Sleep paralysis 1 Occurrences starting 08/04/2022 until 08/04/2023 [facility] Work Phone: Comment on above: 1 Occurrences starting 08/04/2022 until 08/04/2023 End: 09-18-2024 Polysomnogram POLYSOMNOGRAM (PSG) Procedures Routine Excessive sleepiness Parasomnia, unspecified type Hypersomnia Chronic insomnia Sleep paralysis RLS (restless legs syndrome) 1 Occurrences starting 09/19/2023 until 09/18/2024 [facility] Work Phone: Comment on above: 1 Occurrences starting 09/19/2023 until 09/18/2024 End: 02-21-2023 Pyridoxal 5 phosphate level Vitamin B6 Lab Routine Visual disturbance Fatigue, unspecified type Migraine with aura and without status migrainosus, not intractable Dizziness 1 Occurrences starting 02/21/2022 until 02/21/2023 [facility] Comment on above: 1 Occurrences starting 02/21/2022 until 02/21/2023 Pyridoxal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 hours. Fasting plasma glucose results between 100 to 125 mg/dL indicate increased risk for diabetes (prediabetes). Fasting plasma glucose results greater than or equal to 126 mg/dL meet the criteria for diagnosis of diabetes. In the absence of unequivocal hyperglycemia, results should be confirmed by repeat testing. In a patient with classic symptoms of hyperglycemia or hyperglycemic crisis, random plasma glucose results greater than or equal to 200 mg/dL meet the criteria for diagnosis of diabetes. Reference: Standards of Medical Care in Diabetes 2016, [place] [employer]. Diabetes Care. 2016.39(Suppl 1). TSH Date Value Ref Range Status 08/04/2023 0.537 0.270 - 4.200 mIU/L Final Comment: If the patient is , TSH reference range varies by gestational period: First Trimester (weeks 9-12): 0.180-2.990 mIU/L Second Trimester: 0.110-3.980 mIU/L Third Trimester: 0.480-4.710 mIU/L Jcarlos Jordan et al. A Practical Approach for the Verifications and Determination of Site- and Trimester-Specific Reference Intervals for Thyroid Function tests in . Thyroid, 2019:29:3:412-420. Jg E, et al. 2017 Guidelines of the [place] Thyroid Association for the Diagnosis and Management of Thyroid Disease during and the . Thyroid, 2017:27:3:315-389. Creatinine Date Value Ref Range Status 08/07/2023 0.87 0.58 - 0.96 mg/dL Final Potassium Date Value Ref Range Status 08/07/2023 4.1 3.7 - 5.1 mmol/L Final NT Pro BNP Date Value Ref Range Status 08/03/2023 92 <125 pg/mL Final Patient Entered Questionnaire Scores 09/29/2023 PHQ-9 PHQ-2 Score 2 PHQ-9 Score 10 09/29/2023 09/25/2023 08/16/2023 EVA - 2/7 SCORES EVA-2 Score 2 2 1 EVA-7 Score 6 5 09/06/2023 06/13/2023 03/07/2023 PROMIS Global Health - (T-Scores - the mean of general population = 50. Five points is a clinically meaningful difference.) Physical T-Score 34.9 34.9 34.9 34.9 26.7 26.7 26.7 Mental T-Score 36.3 36.3 36.3 36.3 21.2 21.2 31.3 IMPRESSION: In summary, Ms. Dinero is a 33 year old female who was referred to the [facility] because of palpitations PLAN: The results of this assessment were discussed with the patient. We have mutually agreed upon the following plans and goals: Cardiovascular Disease (CVD)/POTS/autonomic: -she follows with Dr. Walton and STANLEY Winkler for POTS/autonomic- symptoms are not new and unchanged, include palpitations, faster heart rate with exertion, intermittent chest pain with palpitations, pre-syncope and dizziness- next appointment in November with MANAGER [employer] -she reports varying BP readings and is wearing 24 hr ABPM that was put on today with nephrology -she also follows with neurology and rheumatology -echo 07/2023 EF 66%, no significant valvular abnormalities Call our office with any new or worsening symptoms. Continue to follow with Dr. Walton and Dr. Phillips Hypertension: She reports varying BP readings, high and low, associated with tachycardia, dizziness- 24 hr ABPM was put on today and she is scheduled to see nephrology PLAN: -await results of 24 hr ABPM and continue to follow with Dr. Walton and nephrology Exercise: consider exercise prescription She has chronic back pain and does physical therapy PLAN: -AHA recommends 150 minutes of moderately intense activity per week Nutrition: feels she has more of an appetite since starting her B12 shots BMI 26.63 kg/(m^2) PLAN: -We discussed the cardiovascular benefits of a Mediterranean dietary pattern. This includes plenty of whole or plant based foods-fruit, vegetables, whole grains, and nuts. It also includes choosing monounsaturated fat from olive oil, olives, nuts, and avocado. [place]-3 fats are another heart healthy fat found in tuna, salmon, flaxseed, and walnuts. Limit foods high in sodium, saturated fat, and cholesterol. -Lowfat, low cholesterol diet -Low sodium diet Tobacco Use: Started to vape again occasionally PLAN: -Discussed cardiovascular disease risk and that it can exacerbate POTS symptoms HEALTH MAINTENANCE: Please follow-up with your Primary Card Physician and review your health maintenance to ensure it is up to date. MEDICATION CHANGES: none Physicians and Nurse Practitioners work closely together in Preventive Cardiology. If at any time you would like to see a Physician for a visit, please let us know. Last visit with [facility] physician: Alan 07/2023 AMBULATORY PATIENT EDUCATION Topic: Education on risk factors and medications. Instruction Provided To: Patient Cognitive Ability: Alert/Oriented Barriers: None Motivation to Learn: Interested Methods of Instruction: Verbal instruction and/or handouts. Patient Leans Best By: Multiple Methods Patient Verbalized: Understanding I personally spent 35 minutes in total time involved in the management and care of this patient. Marie Stevens APRN.CNP documented in this encounter [facility] 10-16-2023 Note [facility] 10-16-2023 Note [facility] 10-16-2023 History of Present illness Narrative UNIVERSAL PROTOCOL / SAFETY CHECKLIST Procedure to be Performed: QSART Sign In: A Moment of CARE was completed. Personnel directly involved with the procedure wore the appropriate PPE (Personal Protective Equipment). Patient/Surrogate Stated/Verified: PATIENT VERIFIED(optional for EMERGENT procedures): Patient name, Date of , Relevant allergies, and The intended procedure Time Out Communication: Intended patient and procedure match the source documents. Consent documented and matches the intended procedure. Medications required for procedure verified. Sign Out: SIGN OUT (optional for EMERGENT procedures): Post-procedure follow-up management communicated and Plan of Care Visit completed when applicable. Shantal Georges documented in this encounter [facility] 10-16-2023 Telephone encounter Note Advised pt to reach out to rheumatology per PCP recommendation [facility] 10-16-2023 Miscellaneous Notes Advised pt to reach out to rheumatology per PCP recommendation documented in this encounter [facility] 10-16-2023 Instructions Chris Matthews MA - 10/16/2023 10:01 AM EDT AMBULATORY BLOOD PRESSURE MONITOR Performed automated office BP reading and results downloaded into Insights. Average BP: 109/73 AOBP - Standardized BP Measurement BP #1: 111/74 Pulse #1: 105 beats/min BP #2 : 107/71 Pulse #2 : 96 beats/min BP #3 : 111/73 Pulse #3 : 102 beats/min Average BP: 109/73 Average Pulse: 101 beats/min BP cuff location: Left upper arm BP cuff size: regular adult Was office BP more than 180/100 (yes/no) If yes, provider informed: name of provider NO Action taken: NONE Applied ambulatory blood pressure monitor. Test reading done, demonstrated to patient Explained to patient the event form and also explained that on the event form they must document blood pressure medications taken morning, noon, and night. Explained to patient that they must keep the 24-hour monitor dry, to be still when the cuff inflates (to help reduce errors), and to resume usual activity once cuff deflates. Patient instructed to remove monitor and stop procedure if there is significant cuff inflation discomfort leading to pain or bruising. Patient instructed to follow up with ordering provider about results Explained to patient to return monitor by mail via [employer] no later than: 10/17/23. Serial number: [id number] SRCH2 Tracking number [id number] Did the patient receive a blood pressure cuff? Yes Did the patient receive a blood pressure monitor? Yes Did the patient receive a belt? Yes Patient expressed understanding of all above. Patient signed financial release form and aware that they will be billed if the monitor is not returned by the specified date. All questions answered Chris Matthews MA documented in this encounter [facility] 10-16-2023 Note [facility] 10-16-2023 History of Present illness Narrative AMBULATORY BLOOD PRESSURE MONITOR Performed automated office BP reading and results downloaded into Insights. Average BP: 109/73 AOBP - Standardized BP Measurement BP #1: 111/74 Pulse #1: 105 beats/min BP #2 : 107/71 Pulse #2 : 96 beats/min BP #3 : 111/73 Pulse #3 : 102 beats/min Average BP: 109/73 Average Pulse: 101 beats/min BP cuff location: Left upper arm BP cuff size: regular adult Was office BP more than 180/100 (yes/no) If yes, provider informed: name of provider NO Action taken: NONE Applied ambulatory blood pressure monitor. Test reading done, demonstrated to patient Explained to patient the event form and also explained that on the event form they must document blood pressure medications taken morning, noon, and night. Explained to patient that they must keep the 24-hour monitor dry, to be still when the cuff inflates (to help reduce errors), and to resume usual activity once cuff deflates. Patient instructed to remove monitor and stop procedure if there is significant cuff inflation discomfort leading to pain or bruising. Patient instructed to follow up with ordering provider about results Explained to patient to return monitor by mail via [employer] no later than: 10/17/23. Serial number: [id number] [employer] Tracking number [id number] Did the patient receive a blood pressure cuff? Yes Did the patient receive a blood pressure monitor? Yes Did the patient receive a belt? Yes Patient expressed understanding of all above. Patient signed financial release form and aware that they will be billed if the monitor is not returned by the specified date. All questions answered Chris Matthews MA documented in this encounter [facility] 10-10-2023 Instructions Carrie Lea APRN.CNP - 10/10/2023 12:12 PM EDT Plan: 1) Continue with current medications 2) start physical therapy when possible 3) Recommend heat, moist is best, as tolerated as needed 4) Follow up with INFORMATION MANAGEMENT MANAGER surgeon for 3 months post-op pain 5) RTC as needed Please watch for the following red flag symptoms: -weight loss, fevers -chills, night time awakening of pain - bowel bladder incontinence (difficulty holding your urine or stool) -saddle anesthesia (numbness and tingling in your groin area) - progressive numbness or weakness. If these symptoms should arise you should seek emergency treatment. Carrie Lea APRN.CNP October 10, 2023 documented in this encounter [facility] 10-10-2023 History of Present illness Narrative Follow up Visit Patient Name: Bethanie Dinero MR #: [id number] Age: [age] year old Date: October 06, 2023 Referred by: Dr. Vieyra Patient was last seen on 10/25/2022 for the diagnosis of (M54.16) Bilateral lumbar radiculopathy (primary encounter diagnosis) (M51.26) Lumbar herniated disc (M41.9) Scoliosis of lumbar spine, unspecified scoliosis type (M47.816) Lumbar spondylosis. The following plan of care was recommended 1) Continue with plan for bilateral transforaminal SANDRA L5-S1 as scheduled 2) Continue with physical therapy - [phone] to schedule 3) Continue with current medications 4) Recommend OTC ibuprofen or naproxen per instructions as needed 5) RTC 4-6 weeks after injection. Was TFE completed ? Insurance would not approve without PT Was there relief from this treatment? Have not able to PT because inexpensives . How long did the patient get relief from this treatment? No relief. What percentage of pain did the patient feel was relieved with this treatment? 50 % Treatment agreement on file: No Last toxicology screen done:N/A This Episode: Pattern: Constant and Night Pain. Character: Aching and Shooting. Severity: VAS Pain: 4/10 Current Location: back Radiation: radiating to joints, hands, knees. Associated Signs/Symptoms: Weight loss, Decreased appetite, Decreased social activity, and Sleep disturbance; 8 hr/night, awakens during night due to pain, awakens during night to void, and difficulty falling asleep. Sensory/Motor Changes: Tingling, Numbness, Weakness, or Dropping things. Changes in Bowel/Bladder Control?: Yes. Number of hours of sleep per night: 8 Is sleep interrupted by pain? Yes. Patient feels safe at home: Yes Patient Entered Questionnaires PROMIS Score Percentiles 03/07/2023 06/13/2023 09/06/2023 PROMIS Global Health Scale Physical Health Percentile 1 1 1 7 7 7 7 Mental Health Percentile 3 0 0 9 9 9 9 06/13/2023 07/30/2023 10/06/2023 Physical Health Physical Function Percentile 73 1 3 Pain Interference Percentile 0 0 2 Percentiles provide an indication of how the patient's score ranks in relation to the general population. Higher percentile rankings indicate better function/quality of life. 50th percentile is the average of the general population and indicates half of respondents had a worse score. > 31st percentile is within normal limits or better * < 31st percentile is at least SD worse than population, which may be clinically relevant < 16th percentile is at least 1 SD worse than population and warrants attention PREVIOUS TREATMENTS LASTING SIX WEEKS IN THE LAST SIX MONTHS Active conservative therapy lasting 6 weeks in the last six months (see below) 1. Physical therapy: Yes: Where: [facility] , Date Started: 07/31/23, Date Ended: 10/23/23 2. Home exercise program after PT: stretching band 3. Occupational therapy: No 4. A physician supervised home exercise program (HEP): No 5. Slitter Creaser Slotter Helper: a long time ago Passive conservative therapy lasting 6 weeks in the last six months (see below) 1. Medical devises: Yes: PEMF 2. Acupuncture: No 3. Tens unit: No 4. Prescription pain medication: Yes 5. NSAIDS: No Teacher Ballet:Mercedes Gautam MA Patient Entered Questionnaires PROMIS Score Percentiles 03/07/2023 06/13/2023 09/06/2023 PROMIS Global Health Scale Physical Health Percentile 1 1 1 7 7 7 7 Mental Health Percentile 3 0 0 9 9 9 9 06/13/2023 07/30/2023 10/06/2023 Physical Health Physical Function Percentile 73 1 3 Pain Interference Percentile 0 0 2 Percentiles provide an indication of how the patient's score ranks in relation to the general population. Higher percentile rankings indicate better function/quality of life. 50th percentile is the average of the general population and indicates half of respondents had a worse score. > 31st percentile is within normal limits or better * < 31st percentile is at least SD worse than population, which may be clinically relevant < 16th percentile is at least 1 SD worse than population and warrants attention Procedures: none OARRS: PDMP website checked and validated. All prescriptions have been APPROPRIATELY filled. No suspicious activity was identified.October 10, 2023 by Carrie Lea APRN.RN CARDIOLOGY Current Medications: Flexeril 10mg TID as needed Cataflam 50mg Q8hr as needed Xanax 0.5mg Robaxin 500mg BID as needed - not same time as flexeril Cymbalta 60mg Anticoagulation: none DM: no Physical Therapy: 07/31/23 GFR: 90 TENA: 10/25/22 Carrie Lea APRN.RN CARDIOLOGY PHYSICAL EXAMINATION: [facility] 09/18/2023 General appearance: well appearing, alert, and in no acute distress Skin: skin color, texture, turgor normal, no rashes or lesions HEENT: normocephalic, atraumatic, sclera non-icteric Lungs: Respirations even and non-labored. Cardiovascular:Regular rate and rhythm GI: Soft, non-tender, non-distended. Musculoskeletal: Neck: Supple; good ROM., Back: Tenderness on plapation over the lumbar spine. , Pain reproduced with extension of the lumbar spine. , SI Joints: No tenderness over the bilateral SI Joints. , Joints: all Normal Neuro: alert and oriented x 3 HPI & ASSESSMENT: Bethanie Dinero is a 33 year old female who presents for chronic low back pain in the setting of lumbar spondylosis. She had a laparoscopic WHIT with b/l salpingectomy. She is an established patient of Dr. Jeremy Madrid. , who was last seen on 10/25/22 by Carrie Lea APRN.[facility] for low back pain. She reports she has chronic low back pain and multiple joint arthritic pains. She states she is being evaluated for Behcet's disease by Rheumatology provider. She reports whole body pain. She is one week post-op for lap WHIT, b/l salpingectomy for fibroids and adenomyosis. She rates her pain at 4/10 currently. The pain is aggravated by sensitive to light, standing in place for long period of time, repetitive bending. The pain is mitigated by positioning, stating she uses 8 pillows at night. She is currently taking - see above. She denies any red flag symptoms including weight loss, fevers, chills, night time awakening of pain, bowel bladder incontinence, saddle anesthesia, progressive numbness or weakness. We discussed that if these symptoms should arise she should seek emergency treatment. She reports currently having bowel issues with diarrhea and is scheduled for colonoscopy. On exam 33yo female, alert and oriented fully. No acute distress. She walks with a normal gait. Low back pain elicited with lumbar extension. Tenderness on palpation lumbar spine. SLR negative bilaterally. Strength 5/5 and sensation are equal and intact bilateral upper and lower extremities. Impression: (M47.816) Lumbar spondylosis (primary encounter diagnosis) (Z90.710) S/P WHIT (total abdominal hysterectomy) Plan: 1) Continue with current medications 2) start physical therapy when possible 3) Recommend heat, moist is best, as tolerated as needed 4) Follow up with INFORMATION MANAGEMENT MANAGER surgeon for 3 months post-op pain 5) RTC as needed I spent a total of 28 minutes on the date of the service which included preparing to see the patient, [id number] patient care, completing clinical documentation, and performing a medically appropriate examination. Carrie Lea APRN.NIK October 10, 2023 documented in this encounter [facility] 10-10-2023 Note [facility] 10-09-2023 Telephone encounter Note Patient requesting a referral to Urology, Last office visit 09/18/23. Patient stated she was diagnosed with neurogenic bladder and has a hard time emptying her bladder. Patient stated she had a hysterectomy a week ago and it has become harder to empty bladder, she noticed she is pushing more trying to empty. Her care has switched to [facility]. Tried to make an appointment with old urologist and they referred her to Household Appliance Installer that performed procedure. Would like a referral to [facility] Urologist. Order pended for review. [facility] 10-09-2023 Miscellaneous Notes Patient requesting a referral to Urology, Last office visit 09/18/23. Patient stated she was diagnosed with neurogenic bladder and has a hard time emptying her bladder. Patient stated she had a hysterectomy a week ago and it has become harder to empty bladder, she noticed she is pushing more trying to empty. Her care has switched to [facility]. Tried to make an appointment with old urologist and they referred her to Household Appliance Installer that performed procedure. Would like a referral to [facility] Urologist. Order pended for review. Patient called and indicated she would like a to get a referral for urology. Please advise. documented in this encounter [facility] 10-09-2023 Telephone encounter Note Patient called and indicated she would like a to get a referral for urology. Please advise. [facility] 10-04-2023 History of Present illness Narrative Images from the original note were not included. [facility] Established Patient Virtual Visit Chief Complaint/Issues: Bethanie Dinero is a 33 year old handed right-handed female seen via virtual visit for: Follow up Labile blood pressure This is a virtual visit using [employer] Zoom Video Visit. It required patient-provider interaction for the medical decision making as documented below. I have communicated my name and active licensure. The patient's identity and physical location were verified at the time of this visit. Either the patient or their legal office services representative has been informed of the risks and benefits of -- and alternatives to -- treatment through a remote evaluation and consents to proceed with the evaluation remotely. Brief HPI /Most Recent Department Assessment and Plan Seen initially for evaluation of multiple complaints. Her chief complaint was hypotension and tachycardia. She had OSH tilt with NTG induction in 11/2022, and was told she has POTS. I cannot see any minute by minute data, and the test report remarks on wide swings in HR and BP. Autonomic with tilt completed 06/2023 and demonstrating cardiovagal abnormality due to reduction in heart response to deep breathing, as well as cardio adrenergic abnormality due to absent phase 4 response. During head up tilt she had initial tachycardia followed by decompensation of blood pressure. On examination she had asymmetric sensory disturbance. Skin biopsy completed 01/2023 and WNL. She has had consistently low B12 levels. She also had asymmetric facial sensation on initial exam and positive tuning fork sign. She has also been following with neurology, Dr. Verde with complaints of muscle twitching. EMG completed 01/2023 and essentially WNL. OSH MRI brain completed 12/2022 and report remarks on prominent vascular enhancement within the left and right cerebellar hemispheres which appears to reflect a small developmental venous anomaly, particularly on the coronal images . 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 Also reported room spinning dizziness, commonly triggered by head turns and rolling in bed. Most consistent with BPPV. Given tinnitus and aural fullness consult to ENT and audiogram, neither of which were completed. Also ordered vestibular PT which was not completed. Seen by myself most recently for follow up on 08/03/2023: She is scheduled for upcoming echo which is necessary given her autonomic testing. We will obtain labs to assess adrenal function given the autonomic testing with reduction in phase IV. Requested orthostatic VS which demonstrate significant hypertension and hypotension, without significant tachycardia. Given her reports of wide swings in blood pressure at home we will obtain ambulatory blood pressure monitoring. 1) Labs (early 6-8AM) - See below 2) QSART - Not completed 3) Ambulatory BP monitoring - Not completed -Reach out after monitor for medication adjustment 4) utility specialist - See below 5) Follow up with sleep medicine 6) Reduce metoprolol ER to half tablet (12.5 mg) and reach out to cardiology. 7) Will reach out to PCP regarding B12 injections --- ED to hospital admission 08/03/2023-08/07/2023: PRINCIPAL DIAGNOSIS: Orthostatic lightheadedness discharge instructionsOrthostatic lightheadedness SECONDARY DIAGNOSIS: Principal Problem: Orthostatic lightheadedness (POA: Yes) Active Problems: Muscle twitching (POA: Yes) Fibromyalgia (POA: Yes) Anxiety (POA: Yes) PTSD (post-traumatic stress disorder) (POA: Yes) Neuropathy (POA: Yes) Migraine (POA: Yes) Chest pain (POA: Yes) Malnutrition of moderate degree (HCC) (POA: Yes) Resolved Problems: * No resolved hospital problems. * HOSPITAL COURSE: You were admitted to the hospital for complaints of lightheadedness, dizziness and low blood pressure. You received IV fluids, your blood pressure has improved. You continued to report some dizziness, recommended to wear ALEX hose during the day and remove them at night. You were evaluated for adrenal insufficiency. Cortisol level responded well after the injection, it was within normal limits --- Endo follow up, Dr. Farooq Mcgraw, 09/04/2023: ASSESSMENT/PLAN (R79.89) Low serum cortisol level (primary encounter diagnosis) One-time low serum cortisol was probably due to receiving exogenous steroid. Recommend to repeat another set with full HPA axis evaluation. If normal, recommend multi-disciplinary workup for her symptoms. Follow-up: open-ened Contact us sooner than recommended follow-up if with issues/concerns. Follow-up with primary care provider and other specialists for issues not explained by the condition that the patient is seeing me for. --- Today, October 04, 2023: She just had a hysterectomy on Monday, will follow up after her recovery. She has been feeling overall bad, but doing okay. She reports she has not been checking BP at home. 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 [facility] PAST MEDICAL HISTORY Diagnosis Date Chronic fatigue Depression Fibromyalgia IBS (irritable bowel syndrome) Insomnia Migraines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 Summary: MEDICAL RECORDS Pt called stating that her previous provider at [facility] Diagnosed her with Behcets Syndrome. (See attached doc). The medical records from [facility] that we have for pt were faxed of 08/2022 before the dx 12/2022 ,therefore we don't have clinical documentation of the dx. Pt would like to see Rheumatology for this dx and needs it to be updated in her chart. Does pt need new medical records faxed over with the updated dx from [facility]? Please let pt know. Thank you. documented in this encounter [facility] 10-03-2023 Telephone encounter Note Summary: MEDICAL RECORDS Pt called stating that her previous provider at [facility] Diagnosed her with Behcets Syndrome. (See attached doc). The medical records from [facility] that we have for pt were faxed of 08/2022 before the dx 12/2022 ,therefore we don't have clinical documentation of the dx. Pt would like to see Rheumatology for this dx and needs it to be updated in her chart. Does pt need new medical records faxed over with the updated dx from [facility]? Please let pt know. Thank you. [facility] 09-29-2023 Instructions Peggy Gilmore APRN.CNP - 09/29/2023 2:45 PM EDT It was a pleasure to see you today. We addressed the following diagnoses: Weakness (primary encounter diagnosis) Fasciculations Abnormal involuntary movement Blepharospasm My recommendations are as follows: 09/29/2023 Visit: I have discontinued the baclofen and reordered Flexeril as we discussed. Do not take baclofen and Robaxin with Flexeril. Follow-up with Dr. Verde in 3-4 months. Movement Disorders Medication Schedule: Medications Return at or around: 01/29/24 If there are any concerns before your next visit, please call or you can send a message through [employer]. You can also now schedule and select appointments through [employer]. Peggy Gilmore APRN.NIK documented in this encounter [facility] 09-29-2023 Note [facility] 09-29-2023 History of Present illness Narrative [facility] - FOLLOW UP EVALUATION - VIRTUAL VISIT Noa Gauthier DO [address] [place] [address] Dear Noa Gauthier DO: I had the pleasure of seeing Ms. Dinero for follow-up today. As you know she is a 33 year old right-handed female with a history of multiple symptoms since 2020. She is seen alone. We had a visit using: [employer] I have communicated my name and active licensure. The patient's identity and physical location were verified at the time of this visit. Either the patient or their legal office services representative has been informed of the risks and benefits of -- and alternatives to -- treatment through a remote evaluation and consents to proceed with the evaluation remotely. Subjective During her previous visit the following plan was made: Previous plan-06/30/2023 Visit: For muscle cramps/fasciculations, the following may help Gabapentin, cyclobenzaprine, xanax (xanax has been lwered half a pill twice per day) I will send message to NIK Shelton about low blood pressures. I will also discuss whether to directly referral to Dr. Walton's group for POTS/autonomic problems Try to track your blood pressures at home Orthostatic: lie down, wait 3 minutes, then take your blood pressure. Then stand up, wait 3 minutes, then take your blood pressure. Consider PT. Ordered. ST Follow up, virtual visit, in 3-4 months. Interval History Patient presents for follow-up visit today, she was last seen by Dr. Mandujano in June for muscle cramping and fasciculations. Patient takes with gabapentin, xanax, and baclofen for these symptoms as well as for her pain. Patient was prescribed baclofen 10 mg 3 times daily by a different provider however she feels that the Flexeril she had taken before was more effective both on her movements and her pain. Patient's movement symptoms continue to consist of muscle spasms in her right hand and right foot, muscle twitching and eye twitching. She has intermittent cramping of her right hand and foot and with the digits pull and she does not have full range of motion, and it is very painful. These episodes have been happening since approximately 2017 and happen about once every 90 days per her estimate. They typically happen in the evening and at night. Patient complains of new weakness in her right arm which happens with even simple activities. She has a follow-up with her spine doctor scheduled Patient will go for spasms and coughing spells which resulted in difficulty swallowing. They are worse when she is drinking or eating something that is she has a follow-up scheduled with Otol and Speech Pathology for further evaluation. Patient follows with neuromuscular for management of her orthostatic hypotension which is still a significant issue. Movement Disorders Medications Schedule - as of the start of the visit: Medications ALLERGIES Allergen Reactions Metoclopramide Shortness of Breath, Other: See Comments Anxiety Mold Hives Current Outpatient Medications Medication Sig cyclobenzaprine (FLEXERIL) 10 mg tablet Take 1 tablet by mouth three times a day as needed. Do not take with baclofen or robaxin. diclofenac potassium (CATAFLAM) 50 mg tablet 1 tab at onset of headache. May take every 8 hours as needed for pain. Take with food, and no more than 10 days per month. ALPRAZolam (XANAX) 0.5 mg tablet Take 0.5 tablets by mouth two times a day as needed for anxiety for up to 30 days. cyanocobalamin 1,000 mcg/mL Inject 1 mL intramuscularly once every month. Syringe with Needle, Disp, (BD ALLERGY SYRINGE) Use to inject vitamin B12 intramuscularly once a month. senna-docusate (SENNA-S) 8.6-50 mg per tablet Take 1 tablet by mouth two times a day. polyethylene glycol 3350 17 gram packet Take 1 Packet by mouth once daily. Dissolve dose in 4 - 8 ounces of liquid and take as directed. bisacodyl EC (DULCOLAX) 5 mg EC tablet TAKE 4 TABLETS BY MOUTH DIRECTED per colonoscopy instructions FEROSUL 325 mg (65 mg iron) tablet Take 1 tablet by mouth daily with breakfast. pantoprazole DR (PROTONIX) 40 mg tablet TAKE 1 TABLET BY MOUTH ONCE DAILY 30-60 MINUTES BEFORE MEALS polyethylene glycol 3350 17 gram/dose powder USE DIRECTED per colonoscopy instructions promethazine HCl (PHENERGAN ORAL) Take by mouth. ergocalciferol, vitamin D2, (VITAMIN D2 ORAL) Take by mouth. methocarbamol (ROBAXIN) 500 mg tablet Take 1 tablet by mouth two times a day as needed (for headache/pain). Do not take on days you use baclofen. Miscellaneous Medical Supply (BLOOD PRESSURE CUFF) 1 Each as needed (for blood pressure symptoms). gabapentin (NEURONTIN) 600 mg tablet Take 1 tablet by mouth two times a day for 180 days. naratriptan (AMERGE) 2.5 mg tablet Take 1 tablet (2.5 mg) by mouth as needed. TAKE ONE(1) TABLET AT THE ONSET OF HEADACHE; IF HEADACHE RETURNS OR DOES NOT FULLY RESOLVE, THE DOSE MAY BE REPEATED AFTER 4 HOURS; DO NOT EXCEED FIVE(5) MG IN 24 HOURS. ubrogepant (UBRELVY) 100 mg tablet Take 1 tablet by mouth as needed (migraine). Can repeat in 2 hours if needed. No more than 2 doses in 24 hours. prazosin (MINIPRESS) 1 mg cap Take 1 mg by mouth every evening. montelukast (SINGULAIR) 10 mg tablet Take 10 mg by mouth as needed. meclizine (ANTIVERT) 25 mg tab Take 25 mg by mouth as needed. multivit,thx,calcium,iron,mins (MULTIVITAMIN AND MINERAL ORAL) Take 1 tablet by mouth once daily. DULoxetine (CYMBALTA) 60 mg capsule Take 60 mg by mouth once daily. No current facility-administered medications for this visit. Questionnaires: Mood/Behavior Depression: PHQ-9 Score: 10 usually representing moderate (10-14) depression. Anxiety: EVA-7 Total Score: 6 usually representing mild (5-9) anxiety. Finally, the following table shows the patient's overall global physical and mental health using the PROMIS scale: PROMIS-10 Flowsheet Row Office Visit from 09/25/2023 in Neurology Most recent reading at 09/06/2023 8:43 AM Appointment from 09/11/2023 in Neurology Most recent reading at 09/06/2023 8:43 AM Global Physical Health T Score 34.9 34.9 Global Mental Health T Score 36.3 36.3 0-10 Standard Pain Scale 3 3 *PROMIS-10 scoring scale: mean = 50, over 50 is above average, under 50 is below average Objective She is alone. General: Awake, alert, interactive, no acute distress, good nutritional status, normal development, well-kept Neurological Exam Mental Status Awake, alert and oriented to person, place and time. Speech is normal. Language is fluent with no aphasia. Attention and concentration are normal. Fund of knowledge is appropriate for level of education. Motor No fasciculations present. No abnormal involuntary movements. Pertinent Studies NERVE CONDUCTION STUDY AND ELECTROMYOGRAM REPORT Patient Name: Bethanie Dinero female : 1990 Visit Date: 03/25/22 31 y.o. Examining MD: Zacarias Da Silva MD Infrastructure Administrator: None Temp (!) 89.1 F (31.7 C) (Skin) Referring Provider: Nolberto Roy* Indication: M54.41,G89.29 (ICD-10-CM) - Chronic low back pain with right-sided sciatica, unspecified back pain laterality. A nerve conduction study and EMG of both lower extremities was requested by the referring provider. Impression: This is a normal study of both lower extremities. 1. There is no electrophysiologic evidence of a large fiber neuropathy, myopathy, or radiculopathy distal to the dorsal root ganglia in the segments studied. Thank you for the referral. Sincerely, Zacarias Da Silva MD This note was created with voice recognition software. Grammatical, syntax and spelling errors may be inevitable. Summary: Extensive electrodiagnostic studies and needle EMG were carried out in the lower extremities Technical limitations: Patient had difficulty tolerating the needle examination All studies, including the needle EMG of both lower extremities are normal. Findings: Motor Nerve Study Peroneal Nerve Rec Site: EDB Lat (ms) Amp (mV) Dist (mm) C.V. (m/s) Stim Site L R L R L R L R Ankle 5.3 4.7 5.8 6.9 Fib.Head 11.2 10.6 5.6 6.2 280 290 47.3 49.0 Pop.Fos. 12.2 11.8 5.6 6.3 70 70 70.0 60.0 Motor Nerve Study Right Tibial Nerve Rec Site: AH Lat (ms) Amp (mV) Dist (mm) C.V. (m/s) Stim Site Ankle 4.8 13.4 Pop.Fos. 13.2 10.8 370 44.4 Motor Nerve Study Right Tibial Nerve Rec Site: AH Lat (ms) Amp (mV) Dist (mm) C.V. (m/s) Stim Site Ankle 5.2 16.0 Pop.Fos. 14.2 14.0 380 42.2 Sensory Nerve Study Sural Nerve Rec Site: Ankle Lat (ms) Pk Lat (ms) Amp (uV) Dist (mm) C.V. (m/s) Stim Site L R L R L R L R L R mid calf 3.3 3.3 4.1 4.3 5.5 12.7 140 140 42.0 42.0 EMG Study Name Ins Act Fibs Fascic Polyph Ampl Dur Recruit Int. Pat L. EDB Normal L. Tibialis A Normal L. Peron L. Normal L. Vastus L. Normal L. Gluteus M.Normal R. EDB Normal R. Tibialis A Normal R. Peron L. Normal R. Vastus L. Normal R. Gluteus M.Normal Left Peroneal Nerve Right Peroneal Nerve Right Tibial Nerve Right Tibial Nerve Left Sural Nerve Right Sural Nerve Normal Values Motor Nerves Location Distance (cm) Distal Latency Amplitude CV (m/s) Median APB 7 <4.5 > 4.0 >56 Ulnar ADM 6.5 <3.6 >6.0 >51 Radial EDC - <3.1 - >67 Peroneal EDB 8.5 <6.6 >2.0 >41 Peroneal TA 10 <6.6 >5.1 43 Tibial AH 8 <6.1 >4.0 >40 Sensory Nerves Median Anti Digit 2 13 <3.6 >15 >56 Ulnar Anti Digit 5 11 <3.1 >10 >54 Radial Anti Snuff 10 <2.9 >15 >49 Median Ortho Median Wrist 13 <3.6 >10 - Ulnar Ortho Ulnar Wrist 11 <3.1 >0 - Median Palm Median Wrist 8 <2.3 >50 >56 Ulnar Palm Ulnar Wrist 8 <2.3 >15 >55 Sural Lat Malleolus 14 <4.5 >6 (<60) >40 Superficial Peroneal Ankle 14 <4.1 >0 Medial Plantar Med Malleolus 12-14 <4.0 >7 (<55) Lateral Plantar Med Malleolus 4.6 > 3 (<55) *Source of normal values: [facility] EMG Date/Time: 03/25/2022 10:29 AM Performed by: Zacarias Da Silva MD Authorized by: Nolberto Perez MD Verbal consent: obtained Written consent: obtained Consent given by: patient Relevant documents: Relevent documents present and verified. Medical history, medications, allergies and physical assessment reviewed/completed Required items: required blood products, implants, devices, and special equipment available Patient identity confirmed: verified patient name and and verbally with patient Time out: Immediately prior to procedure a time out was called to verify the correct patient, procedure, equipment, customer support consultant and site/side marked as required. Physician or proceduralist has discussed critical or nonroutine steps, procedure duration and anticipated blood loss: N/A All team members agree to proceed: N/A Local anesthesia used?: No Patient sedated: no Patient tolerance: Patient tolerated the procedure well with no immediate complications MRI Lspine IMPRESSION: Mild levoconvex scoliosis and minor malalignment associated with little to mild spondylosis most significantly disc and facet disease at L5-S1 and L4-5. L5-S1, minimal disc protrusion/herniation with annular tear. L4-5, subtle disc bulging flattens the thecal sac. There is no substantial spinal canal nor foraminal stenosis. There is no intrinsic abnormality conus medullaris nor is there pathologic postcontrast enhancement. Anatomic Lumbar Variant: None. L4-5 is considered the level of the iliac crest and assume there are 5 lumbar-type vertebrae. Assessment and Plan: Assessment Ms. Dinero is a right-handed 33 year old female with Tremors, muscle spasms that are painful, muscle twitching, a sensation of heaviness, in addition to dizziness (thought to be BPPV), POTS, fibromyalgia, migraines, IBS, and twitching in her leg muscles. She has documented low B6 and B12 levels. On previous in person exam, in addition to distractible tremors, she has neuropathy (but negative neuropathy workup), hyperreflexia (moderate cervical canal stenosis but no myelopathy), variable weakness (possible functional overlay), dec arm swing on right, slow JENAE, no clear atrophy of muscles, with tongue fasciculations and lip/mouth twitches and eyelid twitches. She has a video of leg twitching movements that may represent leg fasciculations. EMG MND protocol was normal, and skin biopsy for neuropathy was normal. She has seen Dr. Lopez in neuormuscular, though where the exam was patchy loss in left hhemibody, with absence of substantial support for a primary underlying NM issue. Diagnosis was benign fasciculation syndrome.Answers submitted by the patient for this visit: Functional Neurologic Core and Associated Symptoms (Submitted on 09/29/2023) Please select the symptoms you have experienced DURING THE LAST 4 WEEKS.: loss of balance, difficulty swallowing, pain symptoms, dizziness, blackout spells, trouble sleeping, stomach or bowel issues, bladder symptoms Ambulation (Submitted on 09/29/2023) In the PAST 7 DAYS, how often have you needed assistance (i.e. cane, walker, wheelchair, person) to walk or move around?: No assistance at all On assessment today patient is alert and oriented with a normal fund of knowledge. No abnormal movements were appreciated however she did report that she had experienced right upper extremity weakness earlier in the day while fixing her hair. Overall patient reports that her movement symptoms are unchanged since her last visit. The following are the current problems noted and addressed during this visit: Weakness (primary encounter diagnosis) Fasciculations Abnormal involuntary movement Blepharospasm Plan 09/29/2023 Visit: I have discontinued the baclofen and reordered Flexeril as we discussed. Do not take baclofen and Robaxin with Flexeril. Follow-up with Dr. Verde in 3-4 months. Interested in clinical research? Not currently Updated Movement Disorder Medication Schedule: Medications Thank you for allowing me to be part of the clinical care of this patient! I look forward to continued participation in the patient s care with you. Please do not hesitate to call with any questions. Sincerely, Peggy Gilmore APRN.NIK documented in this encounter [facility] 09-27-2023 Miscellaneous Notes Update left on . Phone number provided. documented in this encounter [facility] 09-25-2023 History of Present illness Narrative Images from the original note were not included. Follow-Up Onabotulinum Toxin A (BotoxTM) for Migraine Indication: Chronic Intractable Migraine Treatment #: 2 Referral Expiration: 09/10/2024 Prior to the initiation of the FIRST treatment with Onabotulinum Toxin A, the patient reported the following average headache frequency over the past 3 MONTHS: Number of moderate-severe migraine days/month: 15 Number of mild migraine days/month: 15 Number of headache free days/month: 0 (0 headache-free hours) Migraine severity: 10 After treatment with Onabotulinum Toxin A: Number of moderate-severe migraine days/month: 10 Number of mild migraine days/month: 10 Number of headache free days/month: 10 (240 headache-free hours) Patient reduction in overall migraine days: Yes Patient reduction in moderate-severe migraine days: Yes Patient reduction of headache hours by 100 hours or more: Yes (reduction of 240 hours) Individual has obtained clinical benefit deemed significant by individual or prescriber (Y/N): Yes Patient's quality of life and ability to perform ADLs has improved (Y/N): Yes Side effects: none Wearing off: Yes - 11 weeks after treatment The patient has been assessed for disorders which could contribute to breathing or swallowing difficulty, and there is no contraindication with PREEMPT Botox. There is no documented allergic reaction/hypersensitivity to any botulinum toxin and there is no active infection at proposed injection site. HEADACHE SCORES: 06/13/2023 07/25/2023 09/25/2023 Headache Questions ER visits since last office visit: 0 0 1 Hospital stays since last office visit 0 0 0 Limited ADLs in the last month: 5 15 15 Days missed from work or school in the last month: 30 30 30 Days headache pain free in the last month: 0 15 10 Days per month with ALL of the following symptoms - decreased productivity, light sensitivity and nausea: 15 15 10 Initial improvement of headache after botox injection at last visit: Not applicable, I did not have a botox injection at my last visit Minimally improved Minimally improved PRN medication usage in the last month: 15 20 7 Patient impression of improvement since last visit: Minimally worse No change Minimally improved 03/07/2023 06/13/2023 07/25/2023 HIT-6 HIT-6 72 (Severe impact) 70 (Severe impact) 63 (Severe impact) 06/26/2023 07/25/2023 08/16/2023 EVA - 2/7 SCORES EVA-2 Score 2 2 1 EVA-7 Score 10 5 03/07/2023 06/13/2023 07/25/2023 Migraine Specific QOL - Higher scores indicate better HRQL Role Function-Restrictive Transformed Score (range: 0-100) 20 14.29 51.43 Role Function-Preventive Transformed Score (range: 0-100) 20 20 60 Emotional Function Transformed Score (range: 0-100) 0 0 60 07/13/2023 08/16/2023 09/06/2023 PHQ-9 Score 12 9 9 9 9 BP 122/80 Pulse 84 Resp 14 LMP 09/18/2023 (Approximate) Patient name: Bethanie Dinero : 1990 ALLERGIES Allergen Reactions Metoclopramide Shortness of Breath, Other: See Comments Anxiety Mold Hives UNIVERSAL PROTOCOL / SAFETY CHECKLIST Procedure: Onabotulinum toxin A for migraine Informed Consent Consent Obtained: Written [place] Protocol A moment to CARE was completed SIGN IN Personnel directly involved with the procedure wore the appropriate PPE Special Equipment: N/A Patient/Surrogate Stated/Verified: Patient name, Date of , Relevant allergies and Intended procedure TIME OUT Intended patient and procedure match the source document(s) Consent documented and matches the intended procedure No relevant labs, photos, and/or imaging studies were applicable for review. Correct side/site marked and visible. Medications required for procedure verified. No fire risk assessment and interventions applicable. No implant(s) inserted. SIGN OUT No specimen collected. No instruments, equipment or retained foreign bodies applicable. Post-procedure follow-up management communicated and Plan of Care Visit completed when applicable Written Consent Obtained: Written LOT #: [id number] Expiration Date: Month: 6 Year: 2025 Injection Sites Left (Units) Left (Sites) Right (Units) Right (Sites) TOTAL (Units) Criminal Intelligence Analyst 5 1 5 1 10 Procerus Units: 5 Sites: 1 5 Frontalis 10 2 10 2 20 Temporalis 15 3 15 3 30 Occipitalis 15 3 15 3 30 Cervical PSP 10 2 10 2 20 Trapezius 15 3 15 3 30 Masseter 5 1 5 1 10 Total Units used: 155 Total Units wasted: 45 Prior Therapies Duration of Use Dose Side effect Analgesic Butalbital/acetaminophen/caffeine (Fioricet) effective, switching to sumatriptan Anti-Convulsant Gabapentin (Neurontin) Anti-Depressant and Antipsychotic Duloxetine (Cymbalta) Started 04/2022 60mg daily Anti-Migraine Naratriptan (Amerge) Rizatriptan (Maxalt) Sumatriptan (Imitrex, Sumavel) Started 04/2022 100mg Blood Pressure Propranolol (Inderal) Antihypertensives should be avoided due to low resting BP and orthostatic hypotension GEPANTS Ubrogepant (Ubrelvy) Botulinum Toxin Onabotulinum Toxin A (Botox) Supplements Magnesium Over the Counter Medications Acetaminophen (Tylenol) ineffective Acetaminophen/Aspirin/Caffeine (Excedrin, Goody s) ineffective Ibuprofen (Advil, Motrin) ineffective Bethanie Dinero has been previously approved for an Oral Calcitonin Gene-Related Peptide Receptor Antagonist (GEPANT) Ubrogepant for the treatment of abortive use. The patient has demonstrated the following: Provider attests patient has had a positive clinical response: Yes Patient will not use with another Oral Calcitonin Gene-Related Peptide Receptor Antagonist (GEPANT): Yes Patient's quality of life and ability to perform ADLs has improved: Yes The patient has tried and failed the following : We suggest the patient continue treatment with GEPANT Ubrogepant. The following preventative medications have been tried for three or more months without benefit: Anti-Convulsant Gabapentin (Neurontin) Anti-Depressant and Antipsychotic Duloxetine (Cymbalta) Started 04/2022 60mg daily Blood Pressure Propranolol (Inderal) Antihypertensives should be avoided due to low resting BP and orthostatic hypotension Botulinum Toxin Onabotulinum Toxin A (Botox) Supplements Magnesium The following abortive medications have been tried but require high frequency use which can lead to Medication Overuse Headache: Analgesic Butalbital/acetaminophen/caffeine (Fioricet) effective, switching to sumatriptan Anti-Migraine Naratriptan (Amerge) Rizatriptan (Maxalt) Sumatriptan (Imitrex, Sumavel) Started 04/2022 100mg GEPANTS Ubrogepant (Ubrelvy) Over the Counter Medications Acetaminophen (Tylenol) ineffective Acetaminophen/Aspirin/Caffeine (Excedrin, Goody s) ineffective Ibuprofen (Advil, Motrin) ineffective Megan Kern PA-C Headache Section [facility] September 25, 2023 documented in this encounter [facility] 09-25-2023 Note [facility] 09-25-2023 Instructions Megan Kern PA-C - 09/25/2023 3:08 PM EDT AFTER VISIT CARE BOTOX INJECTION While these procedures can be extremely helpful as part of your headache treatment plan, they can irritate the muscles and tissues in your head, neck and shoulders. Proper follow-up care is important to avoid muscle spasms and temporary pain increase within the following 3-5 days after your clinic visit. Here are some tips to help decrease side-effects that may occur and maximize the effectiveness of your pain relief -HYDRATION Hydration is important to help nourish your muscles and tissues. Drink 60-80 oz of non caffeinated fluid at least for 3 days after your visit. -REST Rest will help avoid further irritation of muscle and tissues. Remember that you need to give your body time to adjust. NO strenuous activity for at least the first 24 hours after your visit. Gentle stretching, yoga, meditation or even swimming is OK and encouraged. -ICE/HEAT Since these procedures irritate muscles, there can be some swelling. Alternating ice and heat every 3-5 times per day may help decrease this, while also optimizing pain relief Use cool gel packs for ice for 10 min. Use a warm moist towel covered with a dry towel on neck and shoulders. Alternate stretching each side of the neck. -STRETCHING Slow, gentle stretching of the neck and shoulders once every hour is helpful to avoid muscle spasms. -TREAT MUSCLE SPASMS If you are already prescribed a muscle relaxer such as baclofen, tizanidine or flexeril, use as directed. If you do not have one, talk to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 sclerae, non-injected conjunctivae NECK: able to move easily, no obvious goiter NEUROLOGIC: alert, oriented LAB TEST Latest Reference Range & Units 08/03/23 13:01 08/04/23 07:14 08/04/23 07:15 08/07/23 07:22 08/07/23 08:23 ACTH 7.2 - 63.3 pg/mL <1.0 (L) 1.0 (L) Cortisol 4.8 - 19.5 ug/dL 0.9 (L) 0.5 (L) Cortisol Basal 4.8 - 19.5 ug/dL 13.0 Cortisol Post ug/dL 26.4 (L): Data is abnormally low ASSESSMENT/PLAN (R79.89) Low serum cortisol level (primary encounter diagnosis) One-time low serum cortisol was probably due to receiving exogenous steroid. Recommend to repeat another set with full HPA axis evaluation. If normal, recommend multi-disciplinary workup for her symptoms. Follow-up: open-ened Contact us sooner than recommended follow-up if with issues/concerns. Follow-up with primary care provider and other specialists for issues not explained by the condition that the patient is seeing me for. Orders Placed This Encounter Adrenocorticotropic Hormone Standing Status: Future Standing Expiration Date: 12/04/2023 Cortisol, Serum Standing Status: Future Standing Expiration Date: 12/04/2023 Scheduling Instructions: In preparation for this test, do not take multivitamins or dietary supplements containing biotin (vitamin B7) for at least 12 hours. Biotin is commonly found in hair, skin, and nail supplements and multivitamins. Tell your doctor if you take supplements containing biotin as part of your medication history. DHEA-S BLD Standing Status: Future Standing Expiration Date: 12/04/2023 Scheduling Instructions: In preparation for this test, do not take multivitamins or dietary supplements containing biotin (vitamin B7) for at least 12 hours. Biotin is commonly found in hair, skin, and nail supplements and multivitamins. Tell your doctor if you take supplements containing biotin as part of your medication history. I spent a total of 30 minutes on the date of the service which included preparing to see the patient, [id number] patient care, completing clinical documentation, obtaining and/or reviewing separately obtained history, performing a medically appropriate examination, counseling and educating the patient/family/caregiver, ordering medications, tests, or procedures. This note was dictated using Cred[employer] speech recognition software and may contain some errors that were a result of the program not accurately transcribing what was dictated. Farooq Mcgraw M.D., M.Sc. Attending Project Manager/Team Coach Endocrinology and Metabolism [place], [facility] Office: Appointments: documented in this encounter [facility] 08-31-2023 Miscellaneous Notes Patient states that hospital did recommend endocrinology consult but she has not set that up. States she has decreased activity due to pain, sore muscles, and low tolerance. Grisel Kasper RN, BSN documented in this encounter [facility] 08-21-2023 Note HNO ID: [id number] Author: NOA GAUTHIER, DO Service: ? Author Type: Physician Type: Progress Notes Filed: 08/21/2023 10:18 Note Text: The appointment was cancelled for this patient. Noa Gauthier DO [facility] 08-21-2023 History of Present illness Narrative The appointment was cancelled for this patient. Noa Gauthier DO documented in this encounter [facility] 08-16-2023 Note [facility] 08-16-2023 History of Present illness Narrative DISTANCE HEALTH VISIT This is a virtual visit using HIPAA compliant video platform. It required patient-provider interaction for the medical decision making as documented below. The patient gave permission to this encounter. I have communicated my name and active licensure. The patient's identity and physical location were verified at the time of this visit. Either the patient or their legal office services representative has been informed of the risks and benefits of -- and alternatives to -- treatment through a remote evaluation and consents to proceed with the evaluation remotely. Bethanie Dinero is a 33 year old female seen for [facility]. She presented to ED for symptomatic orthostatic hypotension. Was admitted and had a workup. She was diagnosed with orthostatic lightheadedness. She is still symptomatic intermittently. She does have appointments with neurology, nephrology and ENT HISTORY REVIEWED (electronic chart updated): - medical history - medications - allergies REVIEW OF SYSTEMS: As noted in HPI PHYSICAL EXAMINATION: VIDEO EXAM: (if done, performed via video enabled technology) GENERAL: alert and appropriate, in no distress, well-hydrated, well nourished, appears tired, and flat affect RESPIRATORY: breathing non-labored CHEST: equal chest rise with normal respiratory effort NEUROLOGIC: no obvious deficit ASSESSMENT/PLAN: 1. Labile blood pressure - ICD9: 796.2, ICD10: R09.89 (primary diagnosis) -maintain adequate hydration -keep appointments with specialists 2. POTS (postural orthostatic tachycardia syndrome) - ICD9: 427.89, ICD10: G90.A -as above in #1 3. Transient autonomic symptoms - ICD9: 781.99, ICD10: R29.818 -as above in #1 Noa Gauthier DO documented in this encounter [facility] 08-08-2023 Miscellaneous Notes Okay thank you for forwarding, she was admitted so they addressed for her it looks like. Patient replying to Kelvin's message and giving her side of the story. Grisel Kasper RN, BSN documented in this encounter [facility] 08-07-2023 Note HNO ID: [id number] Author: BRITT BARRAGAN APRN.NIK Service: Hospital Medicine Author Type: Nurse Practitioner Type: Progress Notes Filed: 08/07/2023 14:19 Note Text: DEPARTMENT OF HOSPITAL MEDICINE PROGRESS NOTE SERVICE DATE: 08/07/2023 SERVICE TIME: 2:19 PM Hospital Medicine/Primary Attending: Allison Chanel MD NIGHT AND WEEKEND COVERAGE: ROBERTA COVERAGE: Days: [phone], please contact via Location Based [employer] Nights: [phone] - 3rd floor: please page Hospitalist night cover [phone] - 4W: please page Hospitalist night cover #[phone] - 5th floor: please page Hospitalist night cover #[phone] - SDU (17:00 - 19:00): Please page #[phone] - SDU (19:00 - 07:00): Please call [facility] at [phone] Subjective INTERVAL HPI: eating in bed, appears in no acute distress, waiting for cosyntropin stimulating test results Encouraged to try ALEX hose to see if it helps with dizziness, ok to give it a try Current Facility-Administered Medications Medication Dose Route Frequency NaCl 0.9% iv flush bag 20 mL INTRAVENOUS PRN acetaminophen 650 mg tab(s) (TYLENOL) 650 mg ORAL q 6 H PRN ALPRAZolam 0.5 mg tab(s) (XANAX) 0.5 mg ORAL BID PRN baclofen 10 mg tab(s) 10 mg ORAL TID DULoxetine 60 mg cap(s) (CYMBALTA) 60 mg ORAL DAILY gabapentin 600 mg cap(s) (NEURONTIN) 600 mg ORAL BID montelukast 10 mg tab(s) (SINGULAIR) 10 mg ORAL AT BEDTIME pantoprazole DR 40 mg tab(s) (PROTONIX) 40 mg ORAL DAILY (6 AM) SUMAtriptan 100 mg tab(s) (IMITREX) 100 mg ORAL DIRECTED PRN perflutren lipid microspheres 1.1 mg/mL 1.3 mL injection (DEFINITY) 1.3 mL INTRAVENOUS DIRECTED PRN polyethylene glycol 3350 17 g packet 17 g ORAL DAILY ondansetron (PF) 4 mg injection (ZOFRAN) 4 mg INTRAVENOUS q 6 H PRN senna-docusate 8.6-50 mg 1 tablet (SENNA-S) 1 tablet ORAL BID Objective PHYSICAL EXAM: BP 128/87 Pulse 88 Temp (Src) 98.4 (Oral) Resp 18 Ht 5' 7 (1.70m) Wt 155 lb (70.3kg) SpO2 100% LMP 07/22/2023 BMI 24.27 kg/(m2). O2 Therapy: Room Air Physical Exam Performed GENERAL: Alert, no distress, cooperative SKIN: Skin color, texture, turgor normal. No rashes or lesions. HEENT: Normocephalic, atraumatic, Pupils are equal, round, and reactive to light, EOMI, Mucus membranes moist, tongue is pink and midline NECK: No jugulovenous distention, No carotid bruits, Carotid pulse normal contour, Supple LUNGS: Lungs clear to auscultation, Good diaphragmatic excursion CARDIAC: Normal S1 and S2; no rubs, murmurs, or gallops ABDOMEN: Abdomen soft, non-tender, BS present, EXTREMITIES: no deformities, edema,skin discoloration. Good capillary refill., No ulcers NEURO: AANDOx3 Moves all extremities, no tremors, no gross motor deficit, normal speech. Sensation grossly intact, no focal deficit PULSES: 2+ radial, 2+ dorsalis pedis Lines, Drains, and Airways Line Duration Peripheral 08/06/23 0159 [facility] Left Forearm 20 Gauge 1 day Reviewed lines and needs to be continued: REASONS: Intravenous fluids DATA: Diagnostic tests reviewed for today's visit: Most recent labs Most recent imaging CBC, Coags, BMP, Mg, Phos Recent Labs 08/07/23 0722 WBC 7.70 HB 14.8 HCT 44.1 PLT 327 NA 136 K 4.1 CHLOR 100 CO2 29 BUN 9 CREAT 0.87 GLUC 86 CA 9.7 MG 2.1 Assessment/Plan Problem List Orthostatic lightheadedness (POA: Yes) Muscle twitching (POA: Yes) Fibromyalgia (POA: Yes) Anxiety (POA: Yes) PTSD (post-traumatic stress disorder) (POA: Yes) Neuropathy (POA: Yes) Migraine (POA: Yes) Chest pain (POA: Yes) Malnutrition of moderate degree (HCC) (POA: Yes) HOSPITAL COURSE: 33 year old female with PMHx of chronic migraine with aura, depression, anxiety, fibromyalgia, IBS, chronic fatigue, POTS and B6/B12 deficiency who presents with complaints of lightheadedness, bradycardia and hypotensive episodes. She is currently being admitted for evaluation of the same. Principal Problem: Orthostatic lightheadedness Dizziness -Presented with dizziness, lightheadedness, hypotension -Possible from polypharmacy, she is on baclofen, Flexeril, Neurontin - had cosyntropin stimulating test to evaluate for adrenal insufficiency, waiting for results endocrinology will be called again if test positive otherwise, she will be DC. -ALEX storey Active Problems: Muscle twitching Fibromyalgia No spasm/twitches during visit. She is in baclofen as cyclobenzaprine did not help with symptoms. Pt has been educated on side effects of this medication (baclofen) and related to current complains and she refuses to hold or decrease the medication. We recommended to talk to PCP about this. Anxiety PTSD (post-traumatic stress disorder) Not controlled; She has Cymbalta and low dose gabapentin for treating her mood disorder and neuropathy at this moment. psychiatry consulted to help titrate medication or add mood stabilizer. She will also benefit from terminal operator psychothera (more content not included)... [facility] 08-06-2023 Note HNO ID: [id number] Author: ALLISON CHANEL MD Service: Hospital Medicine Author Type: Physician Type: Progress Notes Filed: 08/06/2023 11:30 Note Text: DEPARTMENT OF HOSPITAL MEDICINE PROGRESS NOTE SERVICE DATE: 08/06/2023 SERVICE TIME: 11:10 AM Hospital Medicine/Primary Attending: Allison Chanel MD NIGHT AND WEEKEND COVERAGE: ROBERTA COVERAGE: Days: [phone], please contact via [employer] Nights: [phone] - 3rd floor: please page CC Hospitalist night cover [phone] - 4W: please page CC Hospitalist night cover #[phone] - 5th floor: please page CC Hospitalist night cover #[phone] - SDU (17:00 - 19:00): Please page #[phone] - SDU (19:00 - 07:00): Please call [facility] at [phone] Subjective INTERVAL HPI: multiple complains during the visit, patient seems calm and able to elaborate about her symptoms. She has her my-chart results opened to go over numbers and questions about how to treat each change in values. Current Facility-Administered Medications Medication Dose Route Frequency NaCl 0.9% iv flush bag 20 mL INTRAVENOUS PRN acetaminophen 650 mg tab(s) (TYLENOL) 650 mg ORAL q 6 H PRN NaCl 0.9% iv infusion 75 mL/hr INTRAVENOUS CONTINUOUS ALPRAZolam 0.5 mg tab(s) (XANAX) 0.5 mg ORAL BID PRN baclofen 10 mg tab(s) 10 mg ORAL TID DULoxetine 60 mg cap(s) (CYMBALTA) 60 mg ORAL DAILY gabapentin 600 mg cap(s) (NEURONTIN) 600 mg ORAL BID montelukast 10 mg tab(s) (SINGULAIR) 10 mg ORAL AT BEDTIME pantoprazole DR 40 mg tab(s) (PROTONIX) 40 mg ORAL DAILY (6 AM) SUMAtriptan 100 mg tab(s) (IMITREX) 100 mg ORAL DIRECTED PRN sodium chloride 0.9 % (flush) 2-10 mL (BD POSIFLUSH) 2-10 mL INTRAVENOUS DIRECTED PRN And perflutren lipid microspheres 1.1 mg/mL 1.3 mL injection (DEFINITY) 1.3 mL INTRAVENOUS DIRECTED PRN [START ON 08/07/2023] cosyntropin 0.25 mg injection (CORTROSYN) 0.25 mg INTRAVENOUS ONCE polyethylene glycol 3350 17 g packet 17 g ORAL DAILY ondansetron (PF) 4 mg injection (ZOFRAN) 4 mg INTRAVENOUS q 6 H PRN senna-docusate 8.6-50 mg 1 tablet (SENNA-S) 1 tablet ORAL BID Objective PHYSICAL EXAM: BP 122/75 Pulse 60 Temp (Src) 97.5 (Oral) Resp 18 Ht 5' 7 (1.70m) Wt 155 lb (70.3kg) SpO2 100% [facility] 07/22/2023 BMI 24.27 kg/(m2). O2 Therapy: Room Air Physical Exam Performed Awake, alert in no distress mucosa moist lungs clear to auscultation cardiac sounds rrr abdomen soft bs ok no tender no leg edema. Motor 5/5 upper and lower. Lines, Drains, and Airways Line Duration Peripheral 08/06/23 0159 [facility] Left Forearm 20 Gauge <1 day Reviewed lines and needs to be continued: REASONS: Intravenous fluids DATA: Diagnostic tests reviewed for today's visit: Most recent labs Most recent imaging Assessment/Plan Problem List Orthostatic lightheadedness (POA: Yes) Muscle twitching (POA: Yes) Fibromyalgia (POA: Yes) Anxiety (POA: Yes) PTSD (post-traumatic stress disorder) (POA: Yes) Neuropathy (POA: Yes) Migraine (POA: Yes) Chest pain (POA: Yes) HOSPITAL COURSE: 33 year old female with PMHx of chronic migraine with aura, depression, anxiety, fibromyalgia, IBS, chronic fatigue, POTS and B6/B12 deficiency who presents with complaints of lightheadedness, bradycardia and hypotensive episodes. She is currently being admitted for evaluation of the same. Principal Problem: Orthostatic lightheadedness Dizziness Keeping IV fluids until this afternoon Tomorrow cosyntropin stimulating test to evaluate for adrenal insufficiency. This test can be done as outpatient but we will do it here as per patient's request. Endocrinology will be called again if test positive otherwise, she will be DC. Active Problems: Muscle twitching Fibromyalgia We did not see any of the spasm/twitches during visit. She is in baclofen as cyclobenzaprine did not help with symptoms. We went over side effects of this medication (baclofen) and related to current complains and she refuses to hold or decrease the medication. We recommended to talk to PCP about this. Anxiety PTSD (post-traumatic stress disorder) Not controlled; I think some of the symptoms and visits to ER are not related to physical problems but mood disorder. She has Cymbalta and low dose gabapentin for treating her mood disorder and neuropathy at this moment. We called psychiatry to help titrate medication or add mood stabilizer. She will also benefit from long-term psychotherapy as outpatient. Neuropathy Migraine Chest pain As above on and off symptoms treated with prn medications. She had echocardiogram ordered this visit for syncope? Orthostatism? It found mild dilation on left atrium with normal systolic and diastolic function. No further recommendations from cardiac stand point. Cardiology to follow her as outpatient. She even had a stress echo on Apr 2023 normal. Allergies Again we explained about montelukast side effects in the setting of current (more content not included)... [facility] 08-06-2023 Note HNO ID: [id number] Author: BRUNO GUARDADO RN Service: Nursing Author Type: Registered Nurse Type: Progress Notes Filed: 08/06/2023 09:57 Note Text: Patient states she is nauseous and has vomited. Patient ordered zofran PRN. Zofran given. Will continue to monitor. [facility] 08-06-2023 Note HNO ID: [id number] Author: SUNIL LUJAN PA-C Service: Hospital Medicine Author Type: Physician Toddler Teacher Type: Plan of Care Filed: 08/06/2023 03:04 Note Text: DEPARTMENT OF HOSPITAL MEDICINE CROSS-COVER PLAN OF CARE NOTE SERVICE DATE: 08/06/2023 Code Status: Full Code SERVICE TIME: 2:47 AM Subjective: - Paged by RN for dragging lines in vision Occurred on awakening from sleep but now improving, nearly resolved. Described as lines present after moving, like a sparkler No change in vision, able to read without difficulty. No focal weakness H/o migraines with aura in past Currently reports very slight frontal PITTS. Objective: BP 102/60 Pulse (!) 57 Temp 36.8 ?C (98.2 ?F) (Oral) Resp 16 Ht 170.2 cm (5' 7 ) Wt 70.3 kg (155 lb) LMP 07/22/2023 (Approximate) SpO2 98% BMI 24.28 kg/m? Physical Exam Performed Young female sitting up in bed in NAD Mentating well NIHSS 0 No visual disturbances Heart RRR Lungs CTA - Chart Reviewed Assessment/Plan: - Possible Migraine Aura, nearly resolved No focal neuro deficits Provided reassurance Continue to monitor Was plan of care discussed with ICU CIRA and transfer to higher level of care indicated?: No Case Discussed with Hospital Medicine Staff Physician: No SIGNATURE: Sunil Lujan PA-C PATIENT NAME: Bethanie Dinero DATE: August 06, 2023 TIME: 2:47 AM [facility] 08-05-2023 Note HNO ID: [id number] Author: JOO ALCANTAR MD Service: Hospital Medicine Author Type: Physician Type: Progress Notes Filed: 08/05/2023 14:05 Note Text: DEPARTMENT OF HOSPITAL MEDICINE PROGRESS NOTE SERVICE DATE: 08/05/2023 SERVICE TIME: 1:57 PM Hospital Medicine/Primary Attending: Joo Alcantar MD NIGHT AND WEEKEND COVERAGE: GRUBBS COVERAGE: Days: [phone], please contact via Location Based [employer] Nights: [phone] - floor: please page Hospitalist night cover [phone] - 4W: please page Hospitalist night cover #[phone] - 5th floor: please page Hospitalist night cover #[phone] - SDU (17:00 - 19:00): Please page #[phone] - SDU (19:00 - 07:00): Please call [facility] at [phone] Subjective INTERVAL HPI: Patient seen and examined. States that she does not feel well and feels very weak and dizzy. But at the same time patient has been seen walking around the unit talking on her phone. She also has multiple other complaints including nausea, muscle spasm, weight loss, headache, episodes of hyper and hypotension. Current Facility-Administered Medications Medication Dose Route Frequency NaCl 0.9% iv flush bag 20 mL INTRAVENOUS PRN acetaminophen 650 mg tab(s) (TYLENOL) 650 mg ORAL q 6 H PRN NaCl 0.9% iv infusion 125 mL/hr INTRAVENOUS CONTINUOUS ALPRAZolam 0.5 mg tab(s) (XANAX) 0.5 mg ORAL BID PRN baclofen 10 mg tab(s) 10 mg ORAL TID DULoxetine 60 mg cap(s) (CYMBALTA) 60 mg ORAL DAILY gabapentin 600 mg cap(s) (NEURONTIN) 600 mg ORAL BID montelukast 10 mg tab(s) (SINGULAIR) 10 mg ORAL AT BEDTIME pantoprazole DR 40 mg tab(s) (PROTONIX) 40 mg ORAL DAILY (6 AM) SUMAtriptan 100 mg tab(s) (IMITREX) 100 mg ORAL DIRECTED PRN sodium chloride 0.9 % (flush) 2-10 mL (BD POSIFLUSH) 2-10 mL INTRAVENOUS DIRECTED PRN And perflutren lipid microspheres 1.1 mg/mL 1.3 mL injection (DEFINITY) 1.3 mL INTRAVENOUS DIRECTED PRN [START ON 08/07/2023] cosyntropin 0.25 mg injection (CORTROSYN) 0.25 mg INTRAVENOUS ONCE Objective PHYSICAL EXAM: BP 96/57 Pulse 64 Temp (Src) 98.4 (Oral) Resp 20 Ht 5' 7 (1.70m) Wt 155 lb (70.3kg) SpO2 97% LMP 07/22/2023 BMI 24.27 kg/(m2). O2 Therapy: Room Air Physical Exam Performed: General appearance: Well appearing, alert and orientedx3, in no acute distress. Skin: color, texture, turgor normal Head: Normocephalic, no masses, lesions Eyes: PERRLA. Neck: Supple, no bruits Lungs: Clear to auscultation. No wheezing, rhonchi, rales. Cardiac: RRR, no murmur, gallop, or rubs Abdomen: soft, non-tender. Bowel sounds normal Extremities: No deformities, edema, skin discoloration Musculoskeletal: No joint swelling, deformity, or tenderness Neuro: No focal neurologic deficit Lines, Drains, and Airways Line Duration Peripheral 08/03/231930 [facility] Short Left Antecubital 20 Gauge 1 day Reviewed lines and needs to be continued: REASONS: Intravenous fluids and Telemetry DATA: Diagnostic tests reviewed for today's visit: Most recent labs Most recent imaging Most recent EKG CBC, Coags, BMP, Mg, Phos Recent Labs 08/03/231931 WBC 11.81* HB 13.8 HCT 41.3 PLT 339 NA 138 K 3.8 CHLOR 102 CO2 26 BUN 13 CREAT 0.74 GLUC 77 CA 9.5 Assessment/Plan Problem List Orthostatic lightheadedness (POA: Yes) Muscle twitching (POA: Yes) Fibromyalgia (POA: Yes) Anxiety (POA: Yes) PTSD (post-traumatic stress disorder) (POA: Yes) Neuropathy (POA: Yes) Migraine (POA: Yes) Chest pain (POA: Yes) HOSPITAL COURSE: This is a 33 year old female with PMHx of chronic migraine with aura, depression, anxiety, fibromyalgia, IBS, chronic fatigue, POTS and B6/B12 deficiency who presents with complaints of lightheadedness, bradycardia and hypotensive episodes. She is currently being admitted for evaluation of the same. #Orthostatic Lightheadedness # Low cortisol level -reports on and off episodes for last few months -also reports intermittent episodes of hypotension with tachycardia, but now reports having low HR since yesterday -symptoms usually present after getting up from lying or seated position -is also on BB for labile BP -unclear etiology, was being worked uo for BPPV, also has a diagnosis of POTS, with recent blood works showing low cortisol and ACTH that was collected in the ED -on examination orthostatic was negative, but did report feeling lightheaded when going from lying to seated position -received decadron with concern for adrenal insufficiency repeat labs ACTH, cortisol, TSH, FSH and LH, to be done at 7AM done, but it was after receiving IV dexamethasone which again showed low cortisol level -Orthostatic vitals remained negative > Continue on IV fluids >>based on the ;labs will consult endocrinology >hold off on MRI of the brain as MRI(12/22/22)No restricted diffusion. No acute hemorrhage, mass effect, midline shift or extraaxial fluid collection, The pituitary gland (more content not included)... [facility] 08-04-2023 Note HNO ID: [id number] Author: JOO ALCANTAR MD Service: Hospital Medicine Author Type: Physician Type: Plan of Care Filed: 08/04/2023 16:16 Note Text: Patient seen and examined. Admitted early this morning by night team. HANDP done by Dr. Saroj Thornton noted. Patient has multiple complaints including chest pain, headache, muscle cramps, dizziness, weakness, weight loss, low blood pressure and high blood pressures. Afternoon cortisol level was checked at ED and it was low. Patient received 10 mg IV dexamethasone. Morning labs also showed low cortisol level with normal ACTH but it was after administration of dexamethasone. Endocrinology consulted and cosyntropin stimulation test scheduled for Monday morning due to dexamethasone received at the ED. Endocrinology evaluated the patient and agreed with the plan. Echo ordered which is done, pending report. We will continue monitoring the patient. [facility] 08-04-2023 Note HNO ID: [id number] Author: CESAR VILLASEÑOR DO Service: Endocrinology Author Type: Physician Type: Plan of Care Filed: 08/04/2023 15:55 Note Text: ENDOCRINOLOGY PLAN OF CARE 33 y.o. F presenting with multiple complaints, dizziness, room spinning, muscle spasms, weight loss. Found to have low cortisol values prompting endocrine consultation. The initial cortisol was an afternoon value done prior to admission, the second cortisol value was done after administration of dexamethasone 10 mg in the ER. Cosyntripin stimulation testing is scheduled for Monday (given the recent administration of dexamethasone). Patient is hemodynamically stable- not hypotensive. She is apparently requesting to stay remain in the hospital for this testing. RECOMMENDATIONS: Proceed with cosyntropin stimulation testing on monday as scheduled. If cortisol does not increase past 17 ug/dL please contact us for recommendation. Cesar Villaseñor DO [facility] 08-03-2023 Note HNO ID: [id number] Author: PIPE HOFFMAN RT(Constantine) Service: Radiology Author Type: Infrastructure Administrator Type: Progress Notes Filed: 08/03/2023 19:01 Note Text: Radiology Service Progress Note PATIENT NAME: Bethanie Dinero DATE OF SERVICE: August 03, 2023 TIME: 7:01 PM PATIENT IDENTITY VERIFICATION COMPLETED USING TWO (2) IDENTIFIERS: Name and Date of confirmed by patient verbally and Name and Date of confirmed by identification band. FALL SCREENING: Has the patient had 2 falls in the last year or 1 fall with injury or currently using an Ambulatory Assistive Device (Walker, Cane, Wheelchair, Crutches, etc.)? Emergency Room Patient: Screened in ED PATIENT GENDER DATA: Female. status: : No status: NO. PATIENT RELEVANT IMPLANT DATA REVIEWED: Not Applicable PATIENT PRESENTS WITH AN IMPLANTABLE OR ATTACHED QUALITY IMPROVEMENT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 Ubrogepant. The following preventative medications have been tried for three or more months without benefit: Anti-Convulsant Gabapentin (Neurontin) Anti-Depressant and Antipsychotic Duloxetine (Cymbalta) Started 04/2022 60mg daily Blood Pressure Propranolol (Inderal) Antihypertensives should be avoided due to low resting BP and orthostatic hypotension Botulinum Toxin Onabotulinum Toxin A (Botox) Supplements Magnesium The following abortive medications have been tried but require high frequency use which can lead to Medication Overuse Headache: Analgesic Butalbital/acetaminophen/caffeine (Fioricet) effective, switching to sumatriptan Anti-Migraine Naratriptan (Amerge) Rizatriptan (Maxalt) Sumatriptan (Imitrex, Sumavel) Started 04/2022 100mg GEPANTS Ubrogepant (Ubrelvy) Over the Counter Medications Acetaminophen (Tylenol) ineffective Acetaminophen/Aspirin/Caffeine (Excedrin, Goody s) ineffective Ibuprofen (Advil, Motrin) ineffective HEADACHE MANAGEMENT: (You are the primary guardian of your health and headache. Keep track of all medications: This includes the reason for use, side effects and benefits.) MEDICATION TREATMENT: Medications to Start Taking methocarbamol (ROBAXIN) 500 mg tablet Take 1 tablet by mouth two times a day as needed (for headache/pain). Do not take on days you use baclofen. Follow-up: for BOTOX, PRN Level of Service: Virtual Visit 10 minutes Megan Kern PA-C Headache Section [facility] July 26, 2023 documented in this encounter [facility] 07-26-2023 Note [facility] 07-26-2023 Miscellaneous Notes Patient sending in BPs for review in upcoming appointment as shs is concerned about how low diastaltic BP is. States she does not need a reply. Grisel Kasper RN, BSN documented in this encounter [facility] 07-24-2023 Miscellaneous Notes Advised patient that all messages are sent to Kelvin to review and guide response. Instructed her that her concerns will be addressed at upcoming appointment. Grisel Kasper RN, BSN documented in this encounter [facility] 07-24-2023 Note [facility] 07-24-2023 History of Present illness Narrative Episode Visit Count: 1 Therapist That Will Accept/Oversee The Plan Of Care: Nico Denney MA [facility] TESTER Start of Care Date: 07/24/23 Onset Date: 07/21/23 Plan of Care Certification Date: 07/24/23 Next Certification Due Date: 09/22/23 Patient Identified by Name and Date of : Yes [facility] SPEECH, SWALLOW, and VOICE EVALUATION PLAN OF CARE: Impression: Communication deficits identified: Voice disorder Swallow Deficits Identified / Suspected: Oropharyngeal dysphagia, Concern for possible esophageal impairment RECOMMENDATION: 1.) Fiberoptic Endoscopic Evaluation of Swallowing (FEES) to formally assess swallowing anatomy/physiology. 2.) Consider videostroboscopy to formally assess laryngeal structure/function. 3.) Return to speech therapy as indicated per FEES and videostroboscopy. 4.) Continue regular solids, thin liquids, medications whole as tolerated. 5.) Swallowing Strategies: -upright position -small bites/sips -chew thoroughly -slow rate -pills one at a time 6.) Implement Healthy Voice Behaviors: -stay hydrated -minimize higher risk vocal behaviors (yelling, overuse, whispering) -avoid unnecessary throat clearing Results and Recommendations Discussed With: Patient Prognosis: Good Good: within-session changes at evaluation Goals for Episode of Care: created on 07/24/2023 through 09/22/23 SWALLOWING GOALS 1.) Patient will complete fiberoptic endoscopic evaluation of swallowing (FEES) to formally assess swallowing anatomy/physiology. 2.) Patient will demonstrate improved perception of swallowing skills as evidenced by decreased score on EAT-10. 3.) Patient will verbalize at least 3 compensatory strategies that can be utilized to increase swallowing safety/efficiency. LTG: All goals to target the patient's overall ability to safely consume the highest appropriate diet level VOICE GOALS 1.) Patient will participate in a videostroboscopy assessment in order to formally assess laryngeal anatomy/physiology. 2.) Patient will demonstrate improved perception of voice skills as evidenced by decreased score on Voice Handicap Index. LTG: All goals to target the patient's overall ability to facilitate functional communication of ADL medical / social needs. Planned Interventions, Frequency, and Duration: Planned Treatment Interventions: Patient / Caregiver Education/ Training, Voice Training (32106), Dysphagia Reduction Training (10023) Current Frequency: 1 visit Duration: 1 visit PLAN FOR NEXT VISIT: videostrobscopy + FEES with [facility] Patient demonstrates good understanding of plan of care and treatment. The above goals and plan of care were discussed and agreed upon by patient/family. SUBJECTIVE: Bethanie Dinero is a 33 year old female seen today for a speech/voice and swallowing evaluation. Referred by Dr. Verde. Pertinent diagnoses include: multiple neurological symptoms, POTS, fibromyalgia, migraines, hypotension, chronic pain syndrome, anxiety, and gastrointestinal issues. Patient reports: -Changes in voice. Voice is weaker and sounds strained . Especially by the end of the day. Feels like she gets a work-out in when using her voice, as it feels effortful. -Speech will sometimes become slower when tired. -Regurgitation of pills. Liquids will sometimes feel like they go down the wrong way . She will cough when eating solids, but doesn't feel like she is choking. Reports that she was started on an acid michael yesterday. . OBJECTIVE MEASURES WITH LEVEL OF FUNCTION: Portions of the following standardized testing were utilized in the evaluation of the patient: Clinician directed non-standardized probes along with portions of standardized assessments were utilized to assess patient. . Current Status Oral Hygiene: Clear, moist oral cavity Dentition: Retains Natural Dentition Current Feeding Method: Oral Current Diet Textures: Regular Consistency, Thin Liquids IDDSI Level 0 Current Level Of Communication: Verbal Current Management Of Secretions: Able to expectorate adequately, Able to self-manage, Able to complete volitional cough, Strong cough, Able to complete volitional swallow Oral Motor Exam: Within Functional Limits Eating Assessment Tool (EAT - 10) To what extent are the following scenarios problematic for you? (0 = No problem; 1 = Mild Problem; 2 = Mild to Moderate Problem; 3 = Moderate Problem; 4 = Severe problem) 1. My swallowing problem has caused me to lose weight. = 1 2. My swallowing problem interferes with my ability to go out for meals. = 1 3. Swallowing liquids takes extra effort. = 2 4. Swallowing solids takes extra effort. = 3 5. Swallowing pills takes extra effort. = 4 6. Swallowing is painful. = 2 7. The pleasure of eating is affected by my swallowing. = 2 8. When I swallow, food sticks in my throat. = 3 9. I cough when I eat. = 4 10. Swallowing is stressful. = 3 Total Score: 25 If your score is greater than 3, you may have swallowing problems. EAT-10 has been standardized with Modified Barium Swallow Evaluation. Research by Dr. Kelvin Tobias at [facility] demonstrates an EAT-10 cut score of 3 is consistent with Penetration Aspiration Scores (PAS) >/3 indicating safe swallows. EAT-10 scores of 8 are consistent with PAS >/6 indicating unsafe swallows. Reference: Suha PC, Jona DA, Isaac CJ, Gi ALESSANDRO, Edenilson GN, Paul J, and Ramin SEGAL. Validity and reliability of the Eating Assessment Tool (EAT-10). Lo Otol Rhinol Laryngol 117: 919-924, 2008. Patient participated in the Test of Mastication and Swallowing Solids (TOMASS) (Tracy et al., 2018) to assess ability to masticate solids. Measures Data Normative Data Based on Sex and Age Discrete Bites 4 1.47-2.71 Masticatory Cycles 55 30.8-49.8 Number of Swallows per Whole Cracker 4 1.71-2.80 Total time to complete the whole cracker 107 seconds 21.44-33.35 MOTOR SPEECH QUALITATIVE MEASURES: Respiration: room air; reduced breath groups Phonation: breathiness; hypophonia; pitch breaks; voice breaks Resonance: within functional limits Articulation: within functional limits Intelligibility: 100% Prosody: slow rate; appropriate intonation Dysarthria: N/A Dysphonia: mild-moderate MOTOR SPEECH QUANTITATIVE MEASURES: Task Result Sustained Vowel Phonation SPL 68.4 dB Reading SPL 70.8 dB Maximum Phonation Time (MPT) 6 seconds C[employer]pillar Reading Passage Reading Rate 2.29 syllables per second; 137.6 words per minute /s/-/z/ ratio 2.2 Alternating Motion Rates (syllables per second) Puh - 3.92 seconds Tuh - 3.56 seconds Kuh - 2.74 seconds Sequential Motion Rates (syllables per second) Puh - Tuh - Kuh - 3.84 seconds GRBAS 0 = normal, 1 = mild, 2 = moderate, and 3 = severe Grade: 2 Roughness: 1 Breathiness: 2 Aesthenia: 2 Strain: 1 Speech/Voice/Language Voice Handicap Index Score: 60 Voice Handicap Index Severity: Moderate Swallow Position Of Patient During Assessment: Upright In Chair Consistencies Presented: Thin Liquids IDDSI Level 0, Solid Response to Consistencies Presented: See 3 oz water screen + TOMASS details Clinical Swallow [place] Swallow Protocol: Pass Oral Pharyngeal Swallow Assessment: Within Functional Limits Except Preparatory / Oral Phase: Within Functional Limits Except (Patient's bolus awareness, oral containment, bolus manipulation, a-p transit, and oral clearane appear WFL. Patient demonstrates slowed mastication, however, patient states this is due to need to be mindful of how she is eating/swallowing.) Pharyngeal Phase: Within Functional Limits Except Range of Hyoid/Laryngeal Elevation: Suspect impairment Suspected Esophageal Deficits: Patient reports history of acid reflux. Prescribed acid michael by gasteroenterologist yesterday, per patient report. Education: Education Learning Preferences: Demonstration, Explanation, Performance, Printed Materials Barriers: Acuity of Illness Learning/Educational Needs: Compensatory Strategies, Diet Modification(s), Disease Process, Equipment, Family Education/Training, Plan of Care, Precautions, Rehabilitation Techniques and Procedures, Speech Skills, Voice Skills, Swallowing Skills Education Provided: Yes, see treatment interventions for education provided Education Provided To: Patient Education Mode/Type: Demonstration, Explanation/Discussion, Literature/Printed Materials, Performance, Teach Back Response to Education/Teach Back: Return Demonstration, States/Identifies TREATMENT: Evaluation: Eval Speech Sound Production (01254) Behavior Quality analysis Voice ([id number]) Swallow Eval Func (74012) Billing: Eval Speech Sound Production (52278), Behavior Quality analysis Voice ([id number]), and Clinical Swallow Evaluation (72584) Total time / Length of visit: 60 minutes Session Start Time : 1314 Session Stop Time : 1414 Nico Denney CCC-BOAT TESTER documented in this encounter [facility] 07-20-2023 Miscellaneous Notes Addressed in another encounter. Grisel McSkimming RN, BSN Patient sending in letter from her PCP stating her BP cuff is calibrated and asking for GI consult at [facility]. ALBAN Neff RN documented in this encounter [facility] 07-20-2023 Miscellaneous Notes Patient giving update on episode that happened last evening. Has appointment with her PCP today. ALBAN Neff RN documented in this encounter [facility] 07-18-2023 Miscellaneous Notes Patient states she feels her BP cuff is accurate but can have it assessed. States she has a history of occasional high BP with screenshots sent in. ALBAN Neff RN documented in this encounter [facility] 07-17-2023 Miscellaneous Notes Patient sending in orthostatic vitals for review. ALBAN Neff RN documented in this encounter [facility] 07-13-2023 Miscellaneous Notes Patient states she cannot do the orthostatic vitals over 3 days as requested due to passing out at 5 minutes of standing. Sending in the vitals she did take. States she lives alone and does not feel this is safe to do without someone with her. CAROLINA Neff RNN documented in this encounter [facility] 07-10-2023 Note [facility] 06-30-2023 Note [facility] 06-19-2023 Note [facility] 06-15-2023 Note EXAMINATION: PELVIC ULTRASOUND; DOPPLER EVALUATION OF THE PELVIS 06/15/2023 TECHNIQUE: Transabdominal and transvaginal pelvic duplex ultrasound using B-mode/amaral scaled imaging, Doppler spectral analysis and color flow Doppler was obtained. COMPARISON: 07/12/2022 HISTORY: ORDERING SYSTEM PROVIDED HISTORY: Abdominal pain, unspecified abdominal location TECHNOLOGIST PROVIDED HISTORY: abdominal pain 33-year-old female with abdominal pain FINDINGS: Measurements: Uterus: 8.2 x 5.6 x 4.5 cm. Endometrial stripe: 1.3 cm. Right Ovary:3.9 x 2.0 x 3.1 cm. Left Ovary: 3.1 x 2.2 x 2.3 cm. Ultrasound Findings: LMP is 05/31/2023. Uterus: Uterus demonstrates normal myometrial echotexture. Anteverted uterus. No uterine mass or fibroid. Endometrial stripe: Endometrial stripe is within normal limits. Right Ovary: Simple anechoic lesion in the right ovary consistent with a right ovarian cyst measuring 2.0 x 1.9 x 1.4 cm. There is normal arterial and venous Doppler flow. Left Ovary: Left ovary is within normal limits. There is normal arterial and venous Doppler flow. Bilateral ovarian follicles. Free Fluid: Small to moderate amount of free fluid in the cul-de-sac. [facility] 06-15-2023 Note EXAMINATION: PELVIC ULTRASOUND; DOPPLER EVALUATION OF THE PELVIS 06/15/2023 TECHNIQUE: Transabdominal and transvaginal pelvic duplex ultrasound using B-mode/amaral scaled imaging, Doppler spectral analysis and color flow Doppler was obtained. COMPARISON: 07/12/2022 HISTORY: ORDERING SYSTEM PROVIDED HISTORY: Abdominal pain, unspecified abdominal location TECHNOLOGIST PROVIDED HISTORY: abdominal pain 33-year-old female with abdominal pain FINDINGS: Measurements: Uterus: 8.2 x 5.6 x 4.5 cm. Endometrial stripe: 1.3 cm. Right Ovary:3.9 x 2.0 x 3.1 cm. Left Ovary: 3.1 x 2.2 x 2.3 cm. Ultrasound Findings: LMP is 05/31/2023. Uterus: Uterus demonstrates normal myometrial echotexture. Anteverted uterus. No uterine mass or fibroid. Endometrial stripe: Endometrial stripe is within normal limits. Right Ovary: Simple anechoic lesion in the right ovary consistent with a right ovarian cyst measuring 2.0 x 1.9 x 1.4 cm. There is normal arterial and venous Doppler flow. Left Ovary: Left ovary is within normal limits. There is normal arterial and venous Doppler flow. Bilateral ovarian follicles. Free Fluid: Small to moderate amount of free fluid in the cul-de-sac. [facility] 06-15-2023 Note EXAMINATION: PELVIC ULTRASOUND; DOPPLER EVALUATION OF THE PELVIS 06/15/2023 TECHNIQUE: Transabdominal and transvaginal pelvic duplex ultrasound using B-mode/amaral scaled imaging, Doppler spectral analysis and color flow Doppler was obtained. COMPARISON: 07/12/2022 HISTORY: ORDERING SYSTEM PROVIDED HISTORY: Abdominal pain, unspecified abdominal location TECHNOLOGIST PROVIDED HISTORY: abdominal pain 33-year-old female with abdominal pain FINDINGS: Measurements: Uterus: 8.2 x 5.6 x 4.5 cm. Endometrial stripe: 1.3 cm. Right Ovary:3.9 x 2.0 x 3.1 cm. Left Ovary: 3.1 x 2.2 x 2.3 cm. Ultrasound Findings: LMP is 05/31/2023. Uterus: Uterus demonstrates normal myometrial echotexture. Anteverted uterus. No uterine mass or fibroid. Endometrial stripe: Endometrial stripe is within normal limits. Right Ovary: Simple anechoic lesion in the right ovary consistent with a right ovarian cyst measuring 2.0 x 1.9 x 1.4 cm. There is normal arterial and venous Doppler flow. Left Ovary: Left ovary is within normal limits. There is normal arterial and venous Doppler flow. Bilateral ovarian follicles. Free Fluid: Small to moderate amount of free fluid in the cul-de-sac. IMPRESSION: 1. Normal arterial and venous Doppler flow in association with the ovaries. 2. Small to moderate amount of free fluid in the cul-de-sac. 3. Simple right ovarian cyst measuring 2 cm. Bilateral ovarian follicles. No follow-up necessary. 4. Anteverted uterus. 5. Endometrial stripe thickness measures 1.3 cm, within normal limits. RECOMMENDATIONS: 2 cm simple right ovarian cyst. No follow-up imaging necessary. Interpreted by: Vinod Ponce MD Signed by: Vinod Ponce MD 06/15/23 Final result [facility] 06-13-2023 Note [facility] 04-20-2023 Miscellaneous Notes gy documented in this encounter [facility] 03-30-2023 Miscellaneous Notes Reason for Call:Low back pain, 6/10 and numbness in feet and unable to empty bladder completely. Is feeling weak today and when stands gets dizzy. Patient states she is at risk for cauda equina syndrome. Outcome:Recommendation to go to ED now. Patient will go to [place] [facility]. Family will drive her. Reason for Disposition [1] Unable to urinate (or only a few drops) > 4 hours AND [2] bladder feels very full (e.g., palpable bladder or strong urge to urinate) Protocols used: Back [id number] documented in this encounter [facility] 03-08-2023 Note [facility] 02-28-2023 Instructions Rubin Verde MD - 02/28/2023 8:52 PM EDT It was a pleasure to see you today. We addressed the following diagnoses: Chronic back pain, unspecified back location, unspecified back pain laterality (primary encounter diagnosis) Abnormal involuntary movement My recommendations are as follows: 02/28/2023 Visit: Will contact headache provider to ensure she has follow-up Referral to chronic pain recovery center placed, with physician as well as psychologist. Call [phone] to schedule with physician and [phone] to schedule with psychology (Dr. Kusum Belle). Follow up with me in 4 months, virtual visit Return at or around: 06/30/23 If there are any concerns before your next visit, please call or you can send a message through [employer]. You can also now schedule and select appointments through [employer]. Rubin Verde MD documented in this encounter [facility] 02-28-2023 History of Present illness Narrative [facility] - FOLLOW UP EVALUATION SHAY Corona CNP [address] [facility] [address] Dear SHAY Corona CNP: I had the pleasure of seeing Ms. Dinero for follow-up today. As you know she is a 32 year old right-handed female with a history of multiple symptoms since 2020. I have communicated my name and active licensure. The patient's identity and physical location were verified at the time of this visit. Either the patient or their legal office services representative has been informed of the risks and benefits of -- and alternatives to -- treatment through a remote evaluation and consents to proceed with the evaluation remotely. Subjective Previous Plan-01/30/2023 Visit: Neuromuscular consultation, as scheduled PT as scheduled Follow up TBD, I will discuss with Dr. Lopez after the neuromuscular visit later this week. Interval History: Recap: 32 year old year old female with with Tremors, muscle spasms that are painful, muscle twitching, a sensation of heaviness, in addition to dizziness (thought to be BPPV), POTS, fibromyalgia, migraines, IBS, and twitching in her leg muscles. She has documented low B6 and B12 levels. On exam, in addition to distractible tremors, she has neuropathy (but negative neuropathy workup), hyperreflexia (moderate cervical canal stenosis but no myelopathy), variable weakness (possible functional overlay), dec arm swing on right, slow JENAE, no clear atrophy of muscles, with tongue fasciculations and lip/mouth twitches and eyelid twitches. She has a video of leg twitching movements that may represent leg fasciculations. EMG MND protocol was normal, and skin biopsy for neuropathy was normal. She has seen Dr. Lopez in neuormuscular, though where the exam was patchy loss in left hhemibody, with absence of substantial support for a primary underlying NM issue. Diagnosis was benign fasciculation syndrome. Things are currently going not well. She was doing well for a 2 week span prior to today, but she woke up today with a migraine and no strength/no energy. She is getting emotional, her dishes feel like they weigh 20 lbs each. Her arm fasciculations are happening. When she tries to fall asleep at night, her feet tend to get pulled up. She is still having flickering and twitching in her muscles. Her face is getting warm/red, she is wondering if this is an allergy to mold. She says she had this type of symptom in the past when she was living in a moldy house. This improved after she moved to a new house, but she still has these bad sensations for around 1 week out of the month. She had an episode recently of having sharp pain the center of her chest, followed by seeing spots in her vision, then it felt like her brain was rebooting. She says that it is hard for her to travel now. She is tearful. She does not understand what is happening to her body. She has back pain, chronic. Is seeing Dr. Villegas for pain management, was recommending back injection but insurance required therapy first. Her priorities are: Pain in back Extreme fatigue and muscle weakness Questionnaires: Mood/Behavior Depression: PHQ-9 Score: 10 usually representing moderate (10-14) depression. Anxiety: EVA-7 Total Score: 9 usually representing mild (5-9) anxiety. Finally, the following table shows the patient's overall global physical and mental health using the PROMIS scale: PROMIS-10 Flowsheet Row Appointment from 02/09/2023 in [facility] Most recent reading at 12/12/2022 5:19 PM Appointment from 12/15/2022 in [facility] Most recent reading at 12/12/2022 5:19 PM Global Physical Health T Score 29.6 29.6 Global Mental Health T Score 25.1 25.1 0-10 Standard Pain Scale 3 3 *PROMIS-10 scoring scale: mean = 50, over 50 is above average, under 50 is below average ALLERGIES Allergen Reactions Metoclopramide Shortness of Breath, Other: See Comments Anxiety Mold Hives Current Outpatient Medications Medication Sig cyclobenzaprine (FLEXERIL) 10 mg tablet Take 10 mg by mouth three times daily as needed. propranolol ER (INDERAL LA) 80 mg 24 hr capsule Take 80 mg by mouth once daily. prazosin (MINIPRESS) 1 mg cap Take 1 mg by mouth every evening. gabapentin (NEURONTIN) 300 mg capsule Take 1 capsule by mouth every morning AND 2 capsules daily at bedtime. Do all this for 180 days. colchicine 0.6 mg tablet Take 1 tablet by mouth once daily. tetracycline, nystatin, hydrocortisone, diphenhydrAMINE MAGIC MOUTHWASH SUSPENSION 5 mL twice daily as needed. Swish and Swallow as directed. Compounding Instructions: Empty the contents of 3 capsules of Tetracycline HCl 250mg into a 180ml gonsalo bottle. Add 120 ml of Diphenhydramine Elixir 12.5mg/5ml and shake well. Add 0.5ml of Hydrocortisone 12mg/ml Soln. to bottle (breaks up foam). Add 30ml Ora-Sweet. Add 15ml Nystatin 100,000 Unit/ml Susp and shake well. Label bottle Shake well montelukast (SINGULAIR) 10 mg tablet meclizine (ANTIVERT) 25 mg tab Take 25 mg by mouth as needed. multivit,thx,calcium,iron,mins (MULTIVITAMIN AND MINERAL ORAL) Take by mouth. ubrogepant (UBRELVY) 100 mg tablet Take 1 tablet by mouth as needed (migraine). Can repeat in 2 hours if needed. No more than 2 doses in 24 hours. naratriptan (AMERGE) 2.5 mg tablet Take 1 tablet by mouth as needed. TAKE ONE(1) TABLET AT THE ONSET OF HEADACHE; IF HEADACHE RETURNS OR DOES NOT FULLY RESOLVE, THE DOSE MAY BE REPEATED AFTER 4 HOURS; DO NOT EXCEED FIVE(5) MG IN 24 HOURS. diclofenac potassium (CATAFLAM) 50 mg tablet 1 tab at onset of headache. May take every 8 hours as needed for pain. Take with food, and no more than 10 days per month. ondansetron (ZOFRAN) 4 mg tablet Take 1 tablet by mouth once daily as needed (for nausea.). DULoxetine (CYMBALTA) 60 mg capsule once daily. No current facility-administered medications for this visit. Objective Vital Signs: There were no vitals taken for this visit. Focused exam over video Normal language and no dysarthria Normal attention Symmetric facial movements No head tremors noted No abnormal head posturing noted Pertinent Studies NERVE CONDUCTION STUDY AND ELECTROMYOGRAM REPORT Patient Name: Bethanie Dinero female : 1990 Visit Date: 03/25/22 31 y.o. Examining MD: Zacarias Da Silva MD Infrastructure Administrator: None Temp (!) 89.1 F (31.7 C) (Skin) Referring Provider: Nolberto Roy* Indication: M54.41,G89.29 (ICD-10-CM) - Chronic low back pain with right-sided sciatica, unspecified back pain laterality. A nerve conduction study and EMG of both lower extremities was requested by the referring provider. Impression: This is a normal study of both lower extremities. 1. There is no electrophysiologic evidence of a large fiber neuropathy, myopathy, or radiculopathy distal to the dorsal root ganglia in the segments studied. Thank you for the referral. Sincerely, Zacarias Da Silva MD This note was created with voice recognition software. Grammatical, syntax and spelling errors may be inevitable. Summary: Extensive electrodiagnostic studies and needle EMG were carried out in the lower extremities Technical limitations: Patient had difficulty tolerating the needle examination All studies, including the needle EMG of both lower extremities are normal. Findings: Motor Nerve Study Peroneal Nerve Rec Site: EDB Lat (ms) Amp (mV) Dist (mm) C.V. (m/s) Stim Site L R L R L R L R Ankle 5.3 4.7 5.8 6.9 Fib.Head 11.2 10.6 5.6 6.2 280 290 47.3 49.0 Pop.Fos. 12.2 11.8 5.6 6.3 70 70 70.0 60.0 Motor Nerve Study Right Tibial Nerve Rec Site: AH Lat (ms) Amp (mV) Dist (mm) C.V. (m/s) Stim Site Ankle 4.8 13.4 Pop.Fos. 13.2 10.8 370 44.4 Motor Nerve Study Right Tibial Nerve Rec Site: AH Lat (ms) Amp (mV) Dist (mm) C.V. (m/s) Stim Site Ankle 5.2 16.0 Pop.Fos. 14.2 14.0 380 42.2 Sensory Nerve Study Sural Nerve Rec Site: Ankle Lat (ms) Pk Lat (ms) Amp (uV) Dist (mm) C.V. (m/s) Stim Site L R L R L R L R L R mid calf 3.3 3.3 4.1 4.3 5.5 12.7 140 140 42.0 42.0 EMG Study Name Ins Act Fibs Fascic Polyph Ampl Dur Recruit Int. Pat L. EDB Normal L. Tibialis A Normal L. Peron L. Normal L. Vastus L. Normal L. Gluteus M.Normal R. EDB Normal R. Tibialis A Normal R. Peron L. Normal R. Vastus L. Normal R. Gluteus M.Normal Left Peroneal Nerve Right Peroneal Nerve Right Tibial Nerve Right Tibial Nerve Left Sural Nerve Right Sural Nerve Normal Values Motor Nerves Location Distance (cm) Distal Latency Amplitude CV (m/s) Median APB 7 <4.5 > 4.0 >56 Ulnar ADM 6.5 <3.6 >6.0 >51 Radial EDC - <3.1 - >67 Peroneal EDB 8.5 <6.6 >2.0 >41 Peroneal TA 10 <6.6 >5.1 43 Tibial AH 8 <6.1 >4.0 >40 Sensory Nerves Median Anti Digit 2 13 <3.6 >15 >56 Ulnar Anti Digit 5 11 <3.1 >10 >54 Radial Anti Snuff 10 <2.9 >15 >49 Median Ortho Median Wrist 13 <3.6 >10 - Ulnar Ortho Ulnar Wrist 11 <3.1 >0 - Median Palm Median Wrist 8 <2.3 >50 >56 Ulnar Palm Ulnar Wrist 8 <2.3 >15 >55 Sural Lat Malleolus 14 <4.5 >6 (<60) >40 Superficial Peroneal Ankle 14 <4.1 >0 Medial Plantar Med Malleolus 12-14 <4.0 >7 (<55) Lateral Plantar Med Malleolus 4.6 > 3 (<55) *Source of normal values: [facility] EMG Date/Time: 03/25/2022 10:29 AM Performed by: Zacarias Da Silva MD Authorized by: Nolberto Perez MD Verbal consent: obtained Written consent: obtained Consent given by: patient Relevant documents: Relevent documents present and verified. Medical history, medications, allergies and physical assessment reviewed/completed Required items: required blood products, implants, devices, and special equipment available Patient identity confirmed: verified patient name and and verbally with patient Time out: Immediately prior to procedure a time out was called to verify the correct patient, procedure, equipment, customer support consultant and site/side marked as required. Physician or proceduralist has discussed critical or nonroutine steps, procedure duration and anticipated blood loss: N/A All team members agree to proceed: N/A Local anesthesia used?: No Patient sedated: no Patient tolerance: Patient tolerated the procedure well with no immediate complications MRI Lspine IMPRESSION: Mild levoconvex scoliosis and minor malalignment associated with little to mild spondylosis most significantly disc and facet disease at L5-S1 and L4-5. L5-S1, minimal disc protrusion/herniation with annular tear. L4-5, subtle disc bulging flattens the thecal sac. There is no substantial spinal canal nor foraminal stenosis. There is no intrinsic abnormality conus medullaris nor is there pathologic postcontrast enhancement. Anatomic Lumbar Variant: None. L4-5 is considered the level of the iliac crest and assume there are 5 lumbar-type vertebrae. Assessment and Plan: Assessment Ms. Dinero is a right-handed 32 year old year old female with Tremors, muscle spasms that are painful, muscle twitching, a sensation of heaviness, in addition to dizziness (thought to be BPPV), POTS, fibromyalgia, migraines, IBS, and twitching in her leg muscles. She has documented low B6 and B12 levels. On exam, in addition to distractible tremors, she has neuropathy (but negative neuropathy workup), hyperreflexia (moderate cervical canal stenosis but no myelopathy), variable weakness (possible functional overlay), dec arm swing on right, slow JENAE, no clear atrophy of muscles, with tongue fasciculations and lip/mouth twitches and eyelid twitches. She has a video of leg twitching movements that may represent leg fasciculations. EMG MND protocol was normal, and skin biopsy for neuropathy was normal. She has seen Dr. Lopez in neuormuscular, though where the exam was patchy loss in left hhemibody, with absence of substantial support for a primary underlying NM issue. Diagnosis was benign fasciculation syndrome. Her symptoms of weakness fluctuate, and are tied to headaches/back pain. Her highest priority is to manage her chronic pain which is headaches and also back pain, which she sees a spine pain specialist for who wants to do back pain injections but these are not approved by insurance until she does a course of PT. She has not been able to do that yet, mainly due to transportation issues. We will make sure she has headache neurology follow-up (she will need a ubrelvy refill soon), as her migraines may be related to her body symptoms. We will also refer her to chronic pain recovery center physician and psychologist. The following are the current problems noted and addressed during this visit: Chronic back pain, unspecified back location, unspecified back pain laterality (primary encounter diagnosis) Abnormal involuntary movement Plan 02/28/2023 Visit: Will contact headache provider to ensure she has follow-up Referral to chronic pain recovery center placed, with physician as well as psychologist. Call [phone] to schedule with physician and [phone] to schedule with psychology (Dr. Kusum Belle). Follow up with me in 4 months, virtual visit Return at or around: 06/30/23 Level of service : [id number] ( 30-39 min). Time spent 30 min on the day of service, which included preparing to see the patient, [id number] patient care, completing clinical documentation, obtaining and/or reviewing separately obtained history, performing a medically appropriate examination, counseling and educating the patient/family/caregiver, and ordering medications, tests, or procedures. Thank you for allowing me to be part of the clinical care of this patient! I look forward to continued participation in the patient s care with you. Please do not hesitate to call with any questions. Sincerely, Rubin Verde MD documented in this encounter [facility] 02-28-2023 Note [facility] 02-02-2023 Note [facility] 02-02-2023 History of Present illness Narrative [facility] Neurological [facility] New Patient Visit Note Consultation requested by Dr. Rubin Verde for an opinion regarding concerns about neuromuscular contribution to symptoms constellation (more recently including increased muscle symptoms including muscle twitching over the past ~4 months or so). My final recommendations will be communicated back to the requesting physician by way of shared Medical record or letter to requesting physician via [place] mail. History of Present Illness: The patient is accompanied by her cousin, and her toddler daughter during this clinic visit. Ms. Dinero is a pleasant 32 year old female with a PMHx inclusive of fibromyalgia, IBS, POTS and migraines (says includes a history of hemiplegic migraine) presenting for evaluation of concerns about neuromuscular contribution to symptoms constellation (more recently including increased muscle symptoms including muscle twitching over the past ~4 months or so). As may be gleaned by review of her EMR, she has seen multiple providers including neurology and neurology providers at [facility] in particular (including referring movement disorders neurology provider Dr. Verde, Dr. Vinson in general neurology, and autonomic neurology Kelvin Shelton, NIK) and they are extensive notes regarding the long and meandering course of symptoms constellation, as well as extensive prior work-ups (some of this excerpted below as well). She says that she recalls being in her [facility] up to about 10 years ago when she began noticing more prominent symptoms that were eventually attributed to the diagnosis of fibromyalgia (including diffuse myalgic symptoms, often exertion-exacerbated, chronic fatigue). At about this time she was also diagnosed with IBS. She apparently was diagnosed at OSH with POTS based on OSH tilt table test, but apparently this was with nitro, so results thought to be somewhat confounded. She saw Kelvin Shelton and ANS testing has been ordered here, yet to be scheduled. However, what has been concerning her from the neuromuscular standpoint have been symptoms that have emerged/worsen over the past 4 months including a tendency for diffuse/multifocal muscle twitching which started mostly in the right LE (calf In particular), sometimes feeling vibrating on and off , now spreading to everywhere including gluteal region, cheeks and eyes, UEs> trunk. She believes that there may be some associated muscle atrophy mostly in the right calf area, with the right LE continuing to be the limb most affected by symptoms. She endorses difficulty relaxing the muscles that time, describing that there have been a few episodes where muscles in the right hand and foot felt locked up a bit. There is associated sense of muscle weakness and fatigue as well as muscle soreness in the affected areas ( like after a workout ), with the limb predominantly affected mostly being right LE, but this may be taken over by another limb to which things may have pinged . There is associated functional impairment including loss of dexterity (said she may have to let the arm and hand hang loose for some time for function to recover), and there is associated gait difficulties including worsening baseline clumsiness , with at least near falls occurring about once per month. She does not routinely use assistive devices, but on a recent trip to [place] she used a wheeled walker, and she prefers to lean on the grocery cart while shopping. When asked about craniobulbar symptoms, she endorses some tendency for mild choking, usually at breakfast (also describes some regurgitation ), and believes that she may have had some right eye droopiness episodically, usually in the context of migraines. Also mentioned is a tendency for some urinary straining during voiding, with urology follow-up pending in this regard. She separately describes attacks of fibromyalgia as if there is a migraine affecting her whole body. Intermixed entry symptoms include episodic right foot numbness and IcyHot feeling , especially during a flareup about a year ago lasting 3 months. She has seen some benefit with replacing vitamin B 6 and B12 when levels were determined to be low in the past, although she has been inconsistent with B12 supplementation more recently. 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 She describes escalating frustrations with multiple investigations essentially unrevealing for any definite underlying culprit condition, including most recently MRI brain, cervical and thoracic spine, as well as EMG here (MND protocol), and skin biopsy. Per Dr. Verde's note, she has had some resistance accepting the suggested diagnosis of FND, with the patient conceding that she has had some past/historical traumas that may represent risk for this, but would like more evaluation to rule out other possibilities. PAST MEDICAL HISTORY Diagnosis Date Fibromyalgia IBS (irritable bowel syndrome) Migraines POTS PAST SURGICAL HISTORY Procedure Laterality Date BREAST AUGMENTATION WITH IMPLANT Bilateral Medications: Current Outpatient Medications Medication Sig cyclobenzaprine (FLEXERIL) 10 mg tablet Take 10 mg by mouth three times daily as needed. propranolol ER (INDERAL LA) 80 mg 24 hr capsule Take 80 mg by mouth once daily. prazosin (MINIPRESS) 1 mg cap Take 1 mg by mouth every evening. gabapentin (NEURONTIN) 300 mg capsule Take 1 capsule by mouth every morning AND 2 capsules daily at bedtime. Do all this for 180 days. colchicine 0.6 mg tablet Take 1 tablet by mouth once daily. tetracycline, nystatin, hydrocortisone, diphenhydrAMINE MAGIC MOUTHWASH SUSPENSION 5 mL twice daily as needed. Swish and Swallow as directed. Compounding Instructions: Empty the contents of 3 capsules of Tetracycline HCl 250mg into a 180ml gonsalo bottle. Add 120 ml of Diphenhydramine Elixir 12.5mg/5ml and shake well. Add 0.5ml of Hydrocortisone 12mg/ml Soln. to bottle (breaks up foam). Add 30ml Ora-Sweet. Add 15ml Nystatin 100,000 Unit/ml Susp and shake well. Label bottle Shake well montelukast (SINGULAIR) 10 mg tablet meclizine (ANTIVERT) 25 mg tab Take 25 mg by mouth as needed. multivit,thx,calcium,iron,mins (MULTIVITAMIN AND MINERAL ORAL) Take by mouth. ubrogepant (UBRELVY) 100 mg tablet Take 1 tablet by mouth as needed (migraine). Can repeat in 2 hours if needed. No more than 2 doses in 24 hours. naratriptan (AMERGE) 2.5 mg tablet Take 1 tablet by mouth as needed. TAKE ONE(1) TABLET AT THE ONSET OF HEADACHE; IF HEADACHE RETURNS OR DOES NOT FULLY RESOLVE, THE DOSE MAY BE REPEATED AFTER 4 HOURS; DO NOT EXCEED FIVE(5) MG IN 24 HOURS. diclofenac potassium (CATAFLAM) 50 mg tablet 1 tab at onset of headache. May take every 8 hours as needed for pain. Take with food, and no more than 10 days per month. ondansetron (ZOFRAN) 4 mg tablet Take 1 tablet by mouth once daily as needed (for nausea.). DULoxetine (CYMBALTA) 60 mg capsule once daily. No current facility-administered medications for this visit. Allergies: See updated allergies documented below. 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 ROS: As per HPI Vital Signs: BP 119/71 Pulse 98 Ht 170.2 cm (5' 7 ) Wt 81.6 kg (180 lb) SpO2 99% BMI 28.19 kg/m General Medical Exam: General: appears in no acute clinical distress. Eyes/ENT: see cranial nerve examination. Neck: No masses appreciated. Adequate range of motion, some lower cervical paraspinal tenderness. Respiratory: Clear to auscultation, good air entry bilaterally. Cardiac/vascular: Regular rate and rhythm, no murmur appreciated. No carotid bruits appreciated. GI: non-distended abdomen. Rectal examination deferred. Back: Moderate range flexion and extension with some LS paraspinal tenderness. Extremities: No pertinent deformities, no significant edema, or skin discoloration. Skin: Skin color, texture, turgor normal. No pertinent rashes or lesions. Neurologic Exam: Mental status including: orientation to time, place, person, recent and remote memory, attention span and concentration, language, and fund of knowledge is essentially WNL. CRANIAL NERVES: II: No visual field defects. III-IV-: Pupils equal round and reactive to light. Normal conjugate, extra-ocular eye movements in all directions of gaze. No nystagmus. No ptosis prior to or post sustained upgaze. V: Normal facial sensation. Jaw jerk is not appreciated. VII: Normal facial symmetry and movements. No pathologic facial reflexes detected. VIII: Intact hearing and vestibular function. IX-X: Normal palatal movement. XI: Normal shoulder shrug and head rotation. XII: Normal tongue strength and range of motion, no unequivocal deviation or fasciculation. Speech is not dysarthric. MOTOR: No appreciable atrophy, fasciculations or abnormal movements (did show me some scattered infrequent fasciculations in the LEs per phone video footage). No clear pronator drift. No clear scapular winging. Tone is within normal limits, including absence of myotonia. Strength/Power (MRC grade- out of 5): Neck Flexion 5 Neck Extension 5 [Lhermitte's sign -negative] Upper extremity power, when graded out of 5, revealed: Power in bilateral UEs and LEs essentially full, although sometimes lapses into 4+ to 5-/5 mostly in the right UE and LE, but this with somewhat giveway and tremulous quality at times. Able to rise from a chair without using arms. Deep Tendon Reflexes (DTRs): Right Left Biceps 2-3+ 2-3+ Triceps 2+ 2+ Brachioradialis 2-3+ 2-3+ Patellar 3+ 3+ Achilles 2+ 2+ Vertical spread: No Crossed adductors: No Tromner's sign: No Plantar responses: flexor Clonus: No SENSORY: Intact and fairly symmetrical perception of vibration, temperature and proprioception. Pinprick perception with some patchy hyperalgesic/dysesthetic distortion in the left hemibody, mostly head/face, torso and upper limb. Romberg's sign absent. No extinction on double simultaneous stimulation. Straight leg raising- bilaterally -ve COORDINATION/GAIT: Normal finger-to- nose-finger bilaterally. Gait narrow-based and fairly steady in sauk-suiattle mood, with some unsteadiness with tremulousness noted with stressed gait maneuvers (though still able to walk on heels and toes). OUTSIDE RECORDS: The patient provided outside medical records, which were reviewed during the course of the visit. The relevant details are summarized below: (As per HPI) Scan on 12/22/2022: MR Brain With And Without Contrast FINDINGS: No restricted diffusion. No acute hemorrhage, mass effect, midline shift or extraaxial fluid collection. No ventriculomegaly. Expected flow voids are noted within the intracranial internal carotid, vertebral and basilar arteries. The cerebellopontine angles and internal auditory canals are unremarkable. The pituitary gland and midline structures are unremarkable. Bone marrow signal is within normal limits. The orbits and globes are unremarkable. Expected signal voids are seen with paranasal sinuses and mastoid air cells. Extraocular muscles and optic nerve sheath complexes are unremarkable in course, caliber, contour and signal. No discrete orbital mass, cyst or acute inflammatory changes. The optic chiasm is unremarkable. No parasellar mass or cyst. Cavernous sinus regions are unremarkable. No abnormal enhancement. There is prominent vascular enhancement within the left and right cerebellar hemispheres which appears to reflect a small developmental venous anomaly, particularly on the coronal images. IMPRESSION: No acute infarct, mass effect or evidence of hemorrhage. HA/max INTERNAL RECORDS: The patient's electronic medical record was reviewed. The relevant details include: Component Latest Ref Rng & Units 12/15/2022 12/21/2022 c-ANCA Fluorescence Negative Negative p-ANCA Fluorescence Negative Negative Interpretation (ANCA) Negative for C-ANCA and P-ANCA by indirect immunofluorescence. Staff Review (ANCA) No review performed. Vitamin B12 232 - 1,245 pg/mL 435 410 MMA 79 - 376 nmol/L 188 Homocysteine, Serum <15.1 umol/L 6.3 Folate >4.7 ng/mL >20.0 Vitamin B6, Plasma 20.0 - 125.0 nmol/L 38.1 Copper 80 - 155 ug/dL 140 Zinc 60 - 120 ug/dL 78 CK 42 - 196 U/L 41 (L) MRI CERVICAL AND THORACIC SPINE MARTIN (Acc#[id number]) (Order [id number]) Patient Info Patient Name Sex Bethanie Crain ([id number]) Female 1990 01/25/2023 2:46 PM - Radiology, [place] In Impression IMPRESSION: No convincing T2 STIR hyperintense intramedullary lesions in the cervical and thoracic cord. No significant cord volume loss. 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 Findings detailed level by level as above. No high-grade canal or neuroforaminal narrowing in the thoracic spine. Cervical Anatomic Variant: None. Assume 7 cervical vertebrae with counting from the craniocervical junction. Anatomic Thoracic/Lumbar Variant: None. L4-5 is considered the level of the iliac crest and assume there are 5 lumbar-type vertebrae. 01/04/2023 skin biopsy for intraepidermal nerve fiber density evaluation: IMPRESSION: The epidermal nerve fiber densities are normal at all sites. There is no evidence of a small fiber sensory neuropathy. EMG- Study Interpretation EMG needle examination is somewhat hampered by patient's suboptimal tolerance. Significant arm twisting and body arching occurred multiple times during the examination. Extensive electrodiagnostic examination of the right lower and upper extremities, and right mid and low thoracic paraspinal muscles (T7 and T11 levels) reveals: 1. No evidence of a generalized disorder of anterior horn cells. 2. No evidence of a large fiber sensorimotor polyneuropathy. 3. A few transient trains of positive sharp wave discharges were seen in the right pronator teres muscle without fasciculations or changes in motor unit potential configuration. This is a minor abnormality without clear clinical significance. Addendum This examination was interpreted and electronically signed by: Monica Mcgraw on January 10, 2023 at 10:05 AM IMPRESSION: Ms. Dinero is a pleasant 32 year old female with a PMHx inclusive of fibromyalgia, IBS, POTS and migraines (says includes a history of hemiplegic migraine) presenting for evaluation of concerns about neuromuscular contribution to symptoms constellation (more recently including increased muscle symptoms including muscle twitching over the past ~4 months or so). As may be gleaned by review of her EMR, she has seen multiple providers including neurology and neurology providers at [facility] in particular (including referring movement disorders neurology provider Dr. Verde, Dr. Vinson in general neurology, and autonomic neurology Kevlin Shelton [facility]) and they are extensive notes regarding the long and meandering course of symptoms constellation, as well as extensive prior work-ups (some of this excerpted below as well). She describes escalating frustrations with multiple investigations essentially unrevealing for any definite underlying culprit condition, including most recently MRI brain, cervical and thoracic spine, as well as EMG here (MND protocol), and skin biopsy. Per Dr. Verde's note, she has had some resistance accepting the suggested diagnosis of FND, with the patient conceding that she has had some past/historical traumas that may represent risk for this, but would like more evaluation to rule out other possibilities. Exam findings today without unequivocal neuromuscular deficits or neurological focality, noting that some of the pinprick perception with some patchy hyperalgesic/dysesthetic distortion in the left hemibody, mostly head/face, torso and upper limb may reflect them somatosensory equivalent as may be seen with chronic migraine and central sensitization. Noted are some of the more features which may be related to exacerbated pain/guarding +/- volitional insufficiency (as also noted on the EMG report). Very reassuring from the neuromuscular standpoint is the absence of substantial support for a primary underlying neuromuscular etiology like motor neuron disease/ALS, neuromuscular junction transmission disorder, myopathy, polyradiculopathy and/or polyneuropathy. Muscle twitching reported (and seen on phone video) compatible with benign fasciculations. PLAN/RECOMMENDATIONS: - The impression above as well as the plan as outlined below were extensively discussed with the patient who voiced understanding. All questions were answered to her stated satisfaction. -Encouraged to follow through with the remaining neurological investigation, namely ANS with tilt study (results to be followed up with her S90 autonomic/ordering provider here, Kelvin Shelton, RN CARDIOLOGY) Vitamin B12 level ~400, which may indicate relative deficiency. You may start vitamin B12 supplements [available ekza-kvf-slasdrf] orally, according to the following regimen: Vitamin B12, 2 mg (or 2000 micrograms) by mouth daily x1 month, then maintenance with 1 mg (or 1000 micrograms) daily thereafter. Your PCP may recheck vitamin B12 levels in about 6 months to ensure adequate repletion. -Follow-up with referring neurologist Dr. Rubin Verde to whom my impression will be conveyed, including by being CCed on this note. - Recommend the following measures that may provide some symptomatic benefit for muscle cramps and/or twitching: - Adequate oral clear fluid intake to maintain optimal hydration (about 2.5 liters, or around 8-10 standard glasses per day) - Avoidance of caffeine (from energy drinks, coffee, tea, chocolate etc.) - Trial of tonic water: About 1 glass, twice daily - Magnesium Oxide (available vomg-ylv-vmlucsc) 400 mg by mouth twice daily, as needed - Gentle muscle stretching routine, especially before bedtime (see below) Description of the stretching exercises (See details at http://www.sciencedirect.com/scienc e/article/pii/M6379453915568025) CALF STRETCH IN STANDING Starting position: Standing facing a wall with the elbows extended and both palms on the wall at chest height. One leg is forward with the knee flexed and the other leg is back with the knee extended. Both feet are in full contact with the floor. Motion to apply stretch: Flex the front knee so that the trunk moves forward, keeping the trunk straight and the heels in contact with the floor. HAMSTRING STRETCH IN STANDING Starting position: Standing facing a chair that is placed against a wall. Place one heel on the chair with the knee of that leg fully extended. Motion to apply stretch: Flex at the hips so that the trunk tilts forward, keeping the trunk straight. The foot on the floor should maintain full contact and the other heel remains in contact with the chair. HAMSTRING AND CALF STRETCH IN SITTING Starting position: Sit on the floor or a firm bed with both legs extended. Grasp toes with both hands. Motion to apply stretch: Flex at the hips so that the trunk tilts forward, keeping the trunk as straight as possible. Dorsiflex (foot curl up) at the ankles. - The patient was counseled on pertinent fall precautions per the printed material provided today, and as noted under the Patient Instructions section below - When available, results of the above investigations and possible further recommendations will be communicated to the patient via telephone/[employer]. Patient to call office if not contacted after expected testing turnaround time. To aid with communication, patients (and primary care physicians) can sign up for [employer] (or [employer] which allows online appointment scheduling, transmission of labs results and chart notes, and secure email communication. To establish either account, visit [email or web address]. The duration of this appointment visit was 65 minutes of zrug-op-xvag time with the patient, in addition to 35 minutes spent with documentation comprising this note. At least 50% of aeju-em-xaeh time was spent in counseling, explanation of diagnosis, planning of further management, and coordination of care. Karel Lopez MD Neuromuscular Medicine Staff Referring provider: Dr. Rubin Verde [address] [address] Primary care provider: Kavita Gama APRN - RN CARDIOLOGY [address] [place] [address] Answers submitted by the patient for this visit: SELF ADMINISTERED ALSFRS-R (Submitted on 02/01/2023) Compared to the time before you had weakness or other related symptoms: Have you noticed any changes in your speech?: detectable speech with disturbances Compared to the time before you had weakness or other related symptoms: Have you noticed any changes (increases) in the amount of saliva in your mouth (regardless of any medication use)?: normal Compared to the time before you had weakness or other related symptoms: Have there been any changes in your ability to swallow?: early eating problems - occasional choking Do you receive most of your nutrition through a feeding tube (PEG)?: No Compared to the time before you had weakness or other related symptoms: Has your handwriting changed? Please choose the best answer that describes your handwriting with your dominant (usual) hand without a cuff or brace.: slow or sloppy: all words are legible Compared to the time before you had weakness or other related symptoms: Has your ability to dress and perform self-care activities (i.e. bathing, teeth brushing, shaving, combing your hair, other hygienic activities) changed?: independent and complete self-care with effort or decreased efficiency Compared to the time before you had weakness or other related symptoms: Has your ability to turn in bed and adjust the bedclothes (i.e. cover yourself with the sheet or blanket) changed?: normal Compared to the time before you had weakness or other related symptoms: Has your ability to walk changed?: walks with assistance Compared to the time before you had weakness or other related symptoms: Has your ability to climb stairs changed?: slow Compared to the time before you had weakness or other related symptoms: Do you experience shortness of breath or have difficulty breathing? : occurs when walking Compared to the time before you had weakness or other related symptoms: Do you experience shortness of breath or have difficulty breathing while lying down on your back?: some difficulty sleeping at night due to shortness of breath, does not routinely use more than two pillows Compared to the time before you had weakness or other related symptoms: Do you require respiratory (breathing) support?: none Bulbar Score : 10 Fine Motor Score: 9 Gross Motor Score: 9 Respiratory Score: 10 Handling Utensils (Submitted on 02/01/2023) Compared to the time before you had weakness or other related symptoms: Cutting food and handling utensils: : somewhat slow and clumsy, but no help needed documented in this encounter [facility] 02-02-2023 Instructions Karel Lopez MD - 02/02/2023 1:43 PM EDT Images from the original note were not included. Vitamin B12 level ~400, which indicates relative deficiency. You may start vitamin B12 supplements [available ehmd-ypd-fwbryev] orally, according to the following regimen: Vitamin B12, 2 mg (or 2000 micrograms) by mouth daily x1 month, then maintenance with 1 mg (or 1000 micrograms) daily thereafter. Your PCP may recheck vitamin B12 levels in about 6 months to ensure adequate repletion. Preventing Falls at Home Falls are common, often dreaded events in the lives of older people. Aside from the obvious injuries and even that may result, fall can cause wide-ranging consequences including loss of independence, mental decline, decreased activity and mobility. Younger people are also at risk of falling, especially those with chronic illnesses and fatigue. Ways to reduce risk for falling Examine diet and medications. Warm foods and alcohol dilate blood vessels, which can lead to dizziness when standing. Sleep aids, antidepressants and pain medications can also increase the likelihood of a fall. Get a vision exam. Poor vision, cataracts and glaucoma increase the chances of falling. Check foot gear. Shoes should fit snugly and have a sturdy, nonskid sole and a broad, low heel Participate in a physician-approved exercise program to build and maintain muscle strength and improve balance and coordination. Programs that use ankle weights or stretch bands are excellent for muscle-strengthening. Water aerobics programs and low-impact Kumar Chi programs have also been shown to improve balance and coordination. Increase vitamin D intake. Vitamin D improves muscle strength and increases the amount of calcium the body is able to absorb and deposit in bones. How to prevent falls from common hazards Floors -- Remove all loose wires, cords, and throw rugs. Minimize clutter. Make sure rugs are anchored and smooth. Keep furniture in its usual place. Chairs -- Use chairs with straight backs, armrests and firm seats. Add firm cushions to existing pieces to add height. Bathroom -- Install grab bars and non-skid tape in the tub or shower. Use a bathtub transfer bench or a shower chair with a back support Use an elevated toilet seat and/or safety rails to assist standing from a low surface. Do not use towel racks or bathroom tissue holders to help you stand. Lighting -- Make sure halls, stairways, and entrances are well-lit. Install a night light in your bathroom or hallway. Make sure there is a light switch at the top and bottom of the staircase. Turn lights on if you get up in the middle of the night. Make sure lamps or light switches are within reach of the bed if you have to get up during the night. Kitchen -- Install non-skid rubber mats near the sink and stove. Clean spills immediately. Store frequently used utensils, pots, pans between waist and eye level. This helps prevent reaching and bending. Sit when getting things out of lower cupboards. Living room / Bedrooms - Place furniture with wide spaces in between, giving enough room to move around. Establish a route through the living room that gives you something to hold onto as you walk. Stairs -- Make sure treads, rails, and rugs are secure. Install a rail on both sides of the stairs. If stairs are a threat, it might be helpful to arrange most of your activities on the lower level to reduce the number of times you must climb the stairs. Entrances and doorways -- Install metal handles on the rios adjacent to the doorknobs of all doors to make it more secure as you travel through the doorway. Tips for maintaining balance Keep at least one hand free at all times. Try using a backpack or lucille pack to hold things rather than carrying them in your hands. Never carry objects in both hands when walking as this interferes with keeping your balance. Attempt to swing both arms from front to back while walking. This might require a conscious effort if Parkinson s disease has diminished your movement. It will, however, help you to maintain balance and posture, and reduce fatigue. Consciously lift your feet off of the ground when walking. Shuffling and dragging of the feet is a common culprit in losing your balance. When trying to navigate turns, use a U technique of facing forward and making a wide turn, rather than pivoting sharply. Try to stand with your feet shoulder-length apart. When your feet are close together for any length of time, you increase your risk of losing your balance and falling. Do one thing at a time. Don t try to walk and accomplish another task, such as reading or looking around. The decrease in your automatic reflexes complicates motor function, so the less distraction, the better. Do not wear rubber or gripping soled shoes, they might catch on the floor and cause tripping. Move slowly when changing positions. Use deliberate, concentrated movements and, if needed, use a grab bar or walking aid. Count 15 seconds between each movement. For example, when rising from a seated position, wait 15 seconds after standing to begin walking. If balance is a continuous problem, you might want to consider a walking aid such as a cane, walking stick, or walker. Once you ve mastered walking with help, you might be ready to try it on your own again. - Recommend the following measures that may provide some symptomatic benefit for muscle cramps and/or twitching: - Adequate oral clear fluid intake to maintain optimal hydration (about 2.5 liters, or around 8-10 standard glasses per day) - Avoidance of caffeine (from energy drinks, coffee, tea, chocolate etc.) - Trial of tonic water: About 1 glass, twice daily - Magnesium Oxide (available imiq-bsq-xaurmdo) 400 mg by mouth twice daily, as needed - Gentle muscle stretching routine, especially before bedtime (see below) Description of the stretching exercises (See details at http://www.sciencedirect.com/scienc e/article/pii/A4547306797143258) CALF STRETCH IN STANDING Starting position: Standing facing a wall with the elbows extended and both palms on the wall at chest height. One leg is forward with the knee flexed and the other leg is back with the knee extended. Both feet are in full contact with the floor. Motion to apply stretch: Flex the front knee so that the trunk moves forward, keeping the trunk straight and the heels in contact with the floor. HAMSTRING STRETCH IN STANDING Starting position: Standing facing a chair that is placed against a wall. Place one heel on the chair with the knee of that leg fully extended. Motion to apply stretch: Flex at the hips so that the trunk tilts forward, keeping the trunk straight. The foot on the floor should maintain full contact and the other heel remains in contact with the chair. HAMSTRING AND CALF STRETCH IN SITTING Starting position: Sit on the floor or a firm bed with both legs extended. Grasp toes with both hands. Motion to apply stretch: Flex at the hips so that the trunk tilts forward, keeping the trunk as straight as possible. Dorsiflex (foot curl up) at the ankles. documented in this encounter [facility] 02-02-2023 Note [facility] 01-30-2023 History of Present illness Narrative [facility] - FOLLOW UP EVALUATION Kavita Gama [address] [facility] [address] Dear Kavita Gama: I had the pleasure of seeing Ms. Dinero for follow-up today. As you know she is a 32 year old right-handed female with a history of multiple symptoms since 2020. She is seen alone. We had a visit using: [place] I have communicated my name and active licensure. The patient's identity and physical location were verified at the time of this visit. Either the patient or their legal office services representative has been informed of the risks and benefits of -- and alternatives to -- treatment through a remote evaluation and consents to proceed with the evaluation remotely. Subjective Previous Plan-01/02/2023 Visit: Agree with skin biopsy and EMG Neuromuscular consulted PT is ordered MRI C and T spine, scheduled mid-january Follow up in February,, after all of the above workup Interval History: Recap: right-handed 32 year old year old female with Tremors, muscle spasms that are painful, muscle twitching, a sensation of heaviness, in addition to dizziness (thought to be BPPV), POTS, fibromyalgia, migraines, IBS, and twitching in her leg muscles. She has documented low B6 and B12 levels. On prior exams, in addition to distractible tremors, she has neuropathy (but negative neuropathy workup), hyperreflexia (moderate cervical canal stenosis but no myelopathy), variable weakness (with functional overlay), dec arm swing on right, slow JENAE, no clear atrophy of muscles, visible tongue fasciculations and lip/mouth twitches and eyelid twitches. She has a video of leg twitching movements that may represent leg fasciculations. She feels that occasionally, her foot will get very cold and numb, on the right side. She has muscle twitching that happens all the time. She still has weakness in the right arm and right foot. Her right foot strength became poor and recovered a little. Her right arm gets tired very quickly. She has read about FND but thinks the symptoms are too severe, and not variable enough, to be FND. Workup for MND was reassuring: EMG was NOT consistent with MND. 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 MRI Tspine: no abnormalities in the thoracic cord. EMG: no evidence of generalized disorder of anterior horn cells, no evidence of large fiber sensorimotor polyneuropathy, and nonspecific changes in right pronator teres of unclear significance. Skin biopsy: No evidence of small fiber sensory neuropathy. Scheduled with Dr. Lopez, neuromuscular, later this week. She hasn't started PT or OT yet. It is scheduled, though. She is on cyclobenzaprine for the muscle twitches, which helps but doesn't stop the twitches. Questionnaires: In addition, the following areas that may be affected by abnormal involuntary movements were evaluated: Daily activities Difficulties with eating: Yes (slight) Difficulties in dressing: Yes (slight) Difficulties with hygiene activities: Yes (slight) Difficulties with handwritin (none) Difficulties with doing hobbies and other activities: Yes (mild) Difficulties turning in bed: 0 (none) Difficulties getting out of bed, car or chair: Yes (slight) Tremors/Gait/Balance Shaking or tremors: Yes (slight) Walking and balance problems: Yes (mild) Number of falls in the Last Month: 0 Gait freezin (none) Autonomic/Pain Lightheadeness on standing: Yes (moderate) Urinary problems: Yes (mild) Constipation problems: Yes (mild) Pain and other sensations: Yes (severe) Speech/Swallowing Speech problems: Yes (slight) Droolin (none) Chewing and swallowing problems: Yes (slight) Sleep/Fatigue Sleep problems: Yes (moderate) Daytime sleepiness: Yes (slight) Fatigue: Yes (moderate) Mood/Behavior Depression: PHQ-9 Score: 11 usually representing moderate (10-14) depression. Anxiety: EVA-7 Total Score: 13 usually representing moderate (10-14) anxiety. Finally, the following table shows the patient's overall global physical and mental health using the PROMIS scale: PROMIS-10 Flowsheet Row Appointment from 12/15/2022 in [facility] Most recent reading at 12/12/2022 5:19 PM Office Visit from 12/15/2022 in Neurology Most recent reading at 12/12/2022 5:19 PM Global Physical Health T Score 29.6 29.6 Global Mental Health T Score 25.1 25.1 0-10 Standard Pain Scale 3 3 *PROMIS-10 scoring scale: mean = 50, over 50 is above average, under 50 is below average ALLERGIES Allergen Reactions Metoclopramide Shortness of Breath, Other: See Comments Anxiety Mold Hives Current Outpatient Medications Medication Sig propranolol ER (INDERAL LA) 80 mg 24 hr capsule Take 80 mg by mouth once daily. prazosin (MINIPRESS) 1 mg cap Take 1 mg by mouth every evening. gabapentin (NEURONTIN) 300 mg capsule Take 1 capsule by mouth every morning AND 2 capsules daily at bedtime. Do all this for 180 days. colchicine 0.6 mg tablet Take 1 tablet by mouth once daily. tetracycline, nystatin, hydrocortisone, diphenhydrAMINE MAGIC MOUTHWASH SUSPENSION 5 mL twice daily as needed. Swish and Swallow as directed. Compounding Instructions: Empty the contents of 3 capsules of Tetracycline HCl 250mg into a 180ml gonsalo bottle. Add 120 ml of Diphenhydramine Elixir 12.5mg/5ml and shake well. Add 0.5ml of Hydrocortisone 12mg/ml Soln. to bottle (breaks up foam). Add 30ml Ora-Sweet. Add 15ml Nystatin 100,000 Unit/ml Susp and shake well. Label bottle Shake well (Patient not taking: Reported on 12/15/2022) montelukast (SINGULAIR) 10 mg tablet meclizine (ANTIVERT) 25 mg tab Take 25 mg by mouth as needed. multivit,thx,calcium,iron,mins (MULTIVITAMIN AND MINERAL ORAL) Take by mouth. (Patient not taking: Reported on 12/15/2022) ubrogepant (UBRELVY) 100 mg tablet Take 1 tablet by mouth as needed (migraine). Can repeat in 2 hours if needed. No more than 2 doses in 24 hours. naratriptan (AMERGE) 2.5 mg tablet Take 1 tablet by mouth as needed. TAKE ONE(1) TABLET AT THE ONSET OF HEADACHE; IF HEADACHE RETURNS OR DOES NOT FULLY RESOLVE, THE DOSE MAY BE REPEATED AFTER 4 HOURS; DO NOT EXCEED FIVE(5) MG IN 24 HOURS. diclofenac potassium (CATAFLAM) 50 mg tablet 1 tab at onset of headache. May take every 8 hours as needed for pain. Take with food, and no more than 10 days per month. ondansetron (ZOFRAN) 4 mg tablet Take 1 tablet by mouth once daily as needed (for nausea.). DULoxetine (CYMBALTA) 60 mg capsule once daily. No current facility-administered medications for this visit. Objective Vital Signs: There were no vitals taken for this visit. Focused exam over video Normal language and speech Normal attention Symmetric facial movements No head tremors noted No abnormal head posturing noted No rest tremor noted in hands No postural tremor in hands No kinetic tremor in hands No drift in uppers Gait: appears normal within limitations of video field of view. Has difficulty standing on heels only (the balls of her feet appear to stay the ground). Pertinent Studies NERVE CONDUCTION STUDY AND ELECTROMYOGRAM REPORT Patient Name: Bethanie Dinero female : 1990 Visit Date: 03/25/22 31 y.o. Examining MD: Zacarias Da Silva MD Infrastructure Administrator: None Temp (!) 89.1 F (31.7 C) (Skin) Referring Provider: Nolberto Roy* Indication: M54.41,G89.29 (ICD-10-CM) - Chronic low back pain with right-sided sciatica, unspecified back pain laterality. A nerve conduction study and EMG of both lower extremities was requested by the referring provider. Impression: This is a normal study of both lower extremities. 1. There is no electrophysiologic evidence of a large fiber neuropathy, myopathy, or radiculopathy distal to the dorsal root ganglia in the segments studied. Thank you for the referral. Sincerely, Zacarias Da Silva MD This note was created with voice recognition software. Grammatical, syntax and spelling errors may be inevitable. Summary: Extensive electrodiagnostic studies and needle EMG were carried out in the lower extremities Technical limitations: Patient had difficulty tolerating the needle examination All studies, including the needle EMG of both lower extremities are normal. Findings: Motor Nerve Study Peroneal Nerve Rec Site: EDB Lat (ms) Amp (mV) Dist (mm) C.V. (m/s) Stim Site L R L R L R L R Ankle 5.3 4.7 5.8 6.9 Fib.Head 11.2 10.6 5.6 6.2 280 290 47.3 49.0 Pop.Fos. 12.2 11.8 5.6 6.3 70 70 70.0 60.0 Motor Nerve Study Right Tibial Nerve Rec Site: AH Lat (ms) Amp (mV) Dist (mm) C.V. (m/s) Stim Site Ankle 4.8 13.4 Pop.Fos. 13.2 10.8 370 44.4 Motor Nerve Study Right Tibial Nerve Rec Site: AH Lat (ms) Amp (mV) Dist (mm) C.V. (m/s) Stim Site Ankle 5.2 16.0 Pop.Fos. 14.2 14.0 380 42.2 Sensory Nerve Study Sural Nerve Rec Site: Ankle Lat (ms) Pk Lat (ms) Amp (uV) Dist (mm) C.V. (m/s) Stim Site L R L R L R L R L R mid calf 3.3 3.3 4.1 4.3 5.5 12.7 140 140 42.0 42.0 EMG Study Name Ins Act Fibs Fascic Polyph Ampl Dur Recruit Int. Pat L. EDB Normal L. Tibialis A Normal L. Peron L. Normal L. Vastus L. Normal L. Gluteus M.Normal R. EDB Normal R. Tibialis A Normal R. Peron L. Normal R. Vastus L. Normal R. Gluteus M.Normal Left Peroneal Nerve Right Peroneal Nerve Right Tibial Nerve Right Tibial Nerve Left Sural Nerve Right Sural Nerve Normal Values Motor Nerves Location Distance (cm) Distal Latency Amplitude CV (m/s) Median APB 7 <4.5 > 4.0 >56 Ulnar ADM 6.5 <3.6 >6.0 >51 Radial EDC - <3.1 - >67 Peroneal EDB 8.5 <6.6 >2.0 >41 Peroneal TA 10 <6.6 >5.1 43 Tibial AH 8 <6.1 >4.0 >40 Sensory Nerves Median Anti Digit 2 13 <3.6 >15 >56 Ulnar Anti Digit 5 11 <3.1 >10 >54 Radial Anti Snuff 10 <2.9 >15 >49 Median Ortho Median Wrist 13 <3.6 >10 - Ulnar Ortho Ulnar Wrist 11 <3.1 >0 - Median Palm Median Wrist 8 <2.3 >50 >56 Ulnar Palm Ulnar Wrist 8 <2.3 >15 >55 Sural Lat Malleolus 14 <4.5 >6 (<60) >40 Superficial Peroneal Ankle 14 <4.1 >0 Medial Plantar Med Malleolus 12-14 <4.0 >7 (<55) Lateral Plantar Med Malleolus 4.6 > 3 (<55) *Source of normal values: [facility] EMG Date/Time: 03/25/2022 10:29 AM Performed by: Zacarias Da Silva MD Authorized by: Nolberto Perez MD Verbal consent: obtained Written consent: obtained Consent given by: patient Relevant documents: Relevent documents present and verified. Medical history, medications, allergies and physical assessment reviewed/completed Required items: required blood products, implants, devices, and special equipment available Patient identity confirmed: verified patient name and and verbally with patient Time out: Immediately prior to procedure a time out was called to verify the correct patient, procedure, equipment, customer support consultant and site/side marked as required. Physician or proceduralist has discussed critical or nonroutine steps, procedure duration and anticipated blood loss: N/A All team members agree to proceed: N/A Local anesthesia used?: No Patient sedated: no Patient tolerance: Patient tolerated the procedure well with no immediate complications MRI Lspine IMPRESSION: Mild levoconvex scoliosis and minor malalignment associated with little to mild spondylosis most significantly disc and facet disease at L5-S1 and L4-5. L5-S1, minimal disc protrusion/herniation with annular tear. L4-5, subtle disc bulging flattens the thecal sac. There is no substantial spinal canal nor foraminal stenosis. There is no intrinsic abnormality conus medullaris nor is there pathologic postcontrast enhancement. Anatomic Lumbar Variant: None. L4-5 is considered the level of the iliac crest and assume there are 5 lumbar-type vertebrae. Assessment and Plan: Assessment Ms. Dinero is a right-handed 32 year old year old female with with Tremors, muscle spasms that are painful, muscle twitching, a sensation of heaviness, in addition to dizziness (thought to be BPPV), POTS, fibromyalgia, migraines, IBS, and twitching in her leg muscles. She has documented low B6 and B12 levels. On exam, in addition to distractible tremors, she has neuropathy (but negative neuropathy workup), hyperreflexia (moderate cervical canal stenosis but no myelopathy), variable weakness (possible functional overlay), dec arm swing on right, slow JENAE, no clear atrophy of muscles, visible tongue fasciculations and lip/mouth twitches and eyelid twitches. She has a video of leg twitching movements that may represent leg fasciculations. EMG MND protocol was normal, and skin biopsy for neuropathy was normal. At this point, I would appreciate assistance from neuromuscular to help clarify the diagnosis. The differential includes benign fasciculation syndrome with possible functional overlay, but, cannot rule out a neuromuscular process that can manifest with normal EMG, or other process that is compatible with the above workup so far. The following are the current problems noted and addressed during this visit: Fasciculations (primary encounter diagnosis) Hyperreflexia Neuropathy Weakness Plan 01/30/2023 Visit: Neuromuscular consultation, as scheduled PT as scheduled Follow up TBD, I will discuss with Dr. Lopez after the neuromuscular visit later this week. Level of service : 02634 ( 30-39 min). Time spent 30 min on the day of service, which included preparing to see the patient, hitr-py-vold patient care, completing clinical documentation, obtaining and/or reviewing separately obtained history, performing a medically appropriate examination, and counseling and educating the patient/family/caregiver. Thank you for allowing me to be part of the clinical care of this patient! I look forward to continued participation in the patient s care with you. Please do not hesitate to call with any questions. Sincerely, Rubin Verde MD documented in this encounter [facility] 01-30-2023 Note [facility] 01-25-2023 History of Present illness Narrative Radiology Service Progress Note PATIENT NAME: Bethanie Dinero DATE OF SERVICE: January 25, 2023 TIME: 1:46 PM PATIENT IDENTITY VERIFICATION COMPLETED USING TWO (2) IDENTIFIERS: Name and Date of confirmed by patient verbally. FALL SCREENING: Has the patient had 2 falls in the last year or 1 fall with injury or currently using an Ambulatory Assistive Device (Walker, Cane, Wheelchair, Crutches, etc.)? No PATIENT GENDER DATA: Female. status: : No status: NO. PATIENT RELEVANT IMPLANT DATA REVIEWED: Yes RADIOLOGY DEPARTMENT: MR; Exam(s) Completed: Spine: Cervical spine and Thoracic spine PERIPHERAL IV DATA: Not applicable SIGNED BY: RT Farhad(R) January 25, 2023 1:46 PM documented in this encounter [facility] 01-25-2023 Note [facility] 01-10-2023 Note [facility] 01-10-2023 History of Present illness Narrative UNIVERSAL PROTOCOL / SAFETY CHECKLIST Procedure to be Performed: EMG Sign In: A Moment of CARE was completed. Personnel directly involved with the procedure wore the appropriate PPE (Personal Protective Equipment). Patient/Surrogate Stated/Verified: PATIENT VERIFIED(optional for EMERGENT procedures): Patient name, Date of , Relevant allergies, and The intended procedure Time Out Communication: Intended patient and procedure match the source documents. Correct side/site marked and visible. Sign Out: SIGN OUT (optional for EMERGENT procedures): Post-procedure follow-up management communicated and Plan of Care Visit completed when applicable. Allyson Knight secretary bookkeeper Monica Mcgraw documented in this encounter [facility] 01-04-2023 Note [facility] 01-04-2023 History of Present illness Narrative Skin Biopsy Procedure Note Skin Biopsy Accession Number: [id number] Biopsy Date: 01/04/2023 Referring physician: Kelvin Shelton UNIVERSAL PROTOCOL / SAFETY CHECKLIST Procedure to be Performed: Skin biopsy Sign In: A Moment of CARE was completed. Personnel directly involved with the procedure wore the appropriate PPE (Personal Protective Equipment). Patient/Surrogate Stated/Verified: PATIENT VERIFIED(optional for EMERGENT procedures): Patient name, Date of , Relevant allergies, and The intended procedure Time Out Communication: Intended patient and procedure match the source documents. Consent documented and matches the intended procedure. Sign Out: SIGN OUT (optional for EMERGENT procedures): All specimen containers correctly labeled. DANNY Bradshaw Alexandra Markham APRN.RN CARDIOLOGY Sign in Pt ID verified with patient. Yes, by name and date. Is patient allergic to lidocaine, epinephrine, or bandage adhesive: No Is patient on anticoagulant medicine or blood thinners: No Does patient have a history of surgery on legs or feet: No Procedure verified with the patient: Yes, right leg biopsies, 2 sites. History 32 year old female with symptoms of drop R foot, possible ALS (per pt), changes in voice, tiredness, weakness, decreased strength in R hand, hyperreflexia, twitching, bowel issues/IBS, migraines, back pain, generalized pain, numbness in l foot (last night only), unsteady gait for 1 years (increased over the last year) is referred for skin biopsy to evaluate for possible small fiber neuropathy. Written aftercare was given and explained: Yes Patient verbally agrees to proceed with the procedure. Sign in completed: Yes Procedure Note Procedure confirmed with provider and customer support consultant. Yes, right leg 2 skin biopsies. The procedure was discussed with the patient, including the risks, benefits, instruments and personnel involved in this procedure. All of the patient s questions were answered. Informed consent discussed and signed: Yes Audible time-out documented: Yes Procedure Start Time: 2:28 Procedure: After the patient was placed in a lateral position the following biopsy sites were identified: right distal leg and right distal thigh. These sites were cleansed with Chloroprep and injected with 0.5cc 1% Lidocaine. Two skin biopsies were obtained using a 3mm biopsy punch and removed with the forceps and surgical blade technique. Bleeding was minimal and hemostasis was obtained by pressure. Sterile dressing was applied to each biopsy site. Audible sign out completed: All specimens labeled, no equipment issues. Procedure End Time: 2:32 Patient tolerated procedure well, without complications. Patient was discharged home. Specimens were labeled and sent to [facility] Cutaneous Nerve Laboratory. Procedure was performed by: Alexandra Markham APRN.RN CARDIOLOGY Assistance in supply/equipment preparation performed by: DANNY Bradshaw Sign out is complete. documented in this encounter [facility] 01-02-2023 Note [facility] 12-29-2022 Miscellaneous Notes Called pt at December 29, 2022 3:12 PM. Her right ankle dorsiflexion is always weak now. She feels like she is walking with her knee, not her ankle. Her hand is also doing the same thing. She has no ability to lift her hand to wave hello. She has an elective hysterectomy scheduled for tomorrow. I advised her to reschedule this until we can figure what is causing her recent neurological decline. We will get her scheduled for next available follow-up. I called her obgyn provider's office at [phone] (Dr. Michelle Frey's office) to advise her hysterectomy to be rescheduled. I left a message with Dr. Peraza's steam drier operator. Rubin Verde MD PhD Associate Staff, [facility] documented in this encounter [facility] 12-26-2022 Miscellaneous Notes Reviewed with Dr. Montanez. Likely anatomical variant however should have [facility] radiologist review and assess for venous congestion. Megan Kern PA-C December 26, 2022 12:44 PM documented in this encounter [facility] 12-26-2022 Miscellaneous Notes Patient sending in MRI results. Available via Care Everywhere but not all images are viewable. Grisel Kasper RN, BSN documented in this encounter [facility] 12-21-2022 Note [facility] 12-21-2022 History of Present illness Narrative She has sent in two videos demonstrating left calf muscle movements that are suggestive of fasciculations. I have reviewed the videos. [facility] providers, please reach out to me and I can share the videos with you securely if needed. Rubin Verde MD PhD Associate Staff, [facility] - NEW PATIENT EVALUATION Primary Care Provider: Kavita Gama [address] [address] Dear Kavita Gama: I had the pleasure of evaluating Ms. Dinero in our clinic today. As you know she is a 32 year old right-handed female who presents for evaluation of multiple symptoms since 2020. She is seen alone. Subjective HISTORY OF PRESENT ILLNESS: Reason for visit is tremors. Per chart review, she has a diagnosis of POTS, and she has multiple symptoms including dizziness, tinnitus, lightheadedness, constipation and diarrhea that vacillates, vomiting, possible gastroparesis, paresthesias in setting of B12 deficiency, with pending skin biopsy, tremulousness, decreased taste, sleep abnormalities with draining enactment and nighttime hallucinations, muscle locking, frequent headaches, migraine with aura. She has a diagnosis of fibromyalgia, IBS, and POTS. A long work-up is planned. Her dizziness is thought to be BPPV. Audiogram and ENT is pending for tinnitus. Per patient, she has tremors and locking up sensation in her body. Her arms get tired very easily, it is hard to wash her hair. She went to the store yesterday and the sensation of locking went down her right leg and she could hardly walk. It feels like she has ankle or wrist weights on her arms. She also has cognitive issues (she did not realize that she had parked in two handicap spots), some clumsiness (she fell out of bed while trying to get into bed). Regarding tremors: she has always been shaky. Worsening with the last 1 year, now people comment on it. Dropping things. 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 It was on the left side and now involves her right side. She also feels like her right arm wants to stay close to her body. She feels like her arms do not have strength. Her symptoms vary over the day. The tremor is painful when it's big. There is always a small tremor. Regarding locking-up sensation: 1 year ago, her right hand froze up for a few minutes. It is painful when it happens. Regarding the variability, the weakness is always there, there's always a small amount of tremor. The locking up sensation is not always there. It's hard to pinpoint though because she is always in pain, somewhere. It feels sore. Currently, her tremors are present, and her joints hurt in the right hand. She is having issues with walking, and she feels slow. She has also had B6 and B12 levels documented as low. She has an additional symptom of a sensation that her lower leg muscles are jumping or twitching. She has had an EMG at [facility] in 03/2022 that did not identify abnormalities in the legs. She notes that the symptoms have worsened significantly since the last EMG was done. She takes propranolol for POTS. Questionnaires In addition, the following areas that may be affected by abnormal involuntary movements were evaluated: Daily activities Difficulties with eating: Yes (mild) Difficulties in dressing: Yes (slight) Difficulties with hygiene activities: Yes (slight) Difficulties with handwriting: Yes (slight) Difficulties with doing hobbies and other activities: Yes (severe) Difficulties turning in bed: Yes (slight) Difficulties getting out of bed, car or chair: Yes (slight) Tremors/Gait/Balance Shaking or tremors: Yes (mild) Walking and balance problems: Yes (mild) Number of falls in the Last Month: Once Gait freezin (none) Autonomic/Pain Lightheadeness on standing: Yes (moderate) Urinary problems: Yes (moderate) Constipation problems: Yes (moderate) Pain and other sensations: Yes (severe) Speech/Swallowing Speech problems: Yes (mild) Droolin (none) Chewing and swallowing problems: Yes (moderate) Sleep/Fatigue Sleep problems: Yes (severe) Daytime sleepiness: Yes (mild) Fatigue: Yes (severe) Mood/Behavior Depression: PHQ-9 Score: 24 usually representing severe (20-27) depression. Anxiety: EVA-7 Total Score: 12 usually representing moderate (10-14) anxiety. Finally, the following table shows the patient's overall global physical and mental health using the PROMIS scale: PROMIS-10 Flowsheet Row Appointment from 12/15/2022 in [facility] Most recent reading at 12/12/2022 5:19 PM Office Visit from 12/15/2022 in Neurology Most recent reading at 12/12/2022 5:19 PM Global Physical Health T Score 29.6 29.6 Global Mental Health T Score 25.1 25.1 0-10 Standard Pain Scale 3 3 *PROMIS-10 scoring scale: mean = 50, over 50 is above average, under 50 is below average Review of Systems All other systems reviewed and are negative. ALLERGIES Allergen Reactions Metoclopramide Shortness of Breath, Other: See Comments Anxiety Mold Hives Current Outpatient Medications Medication Sig ALPRAZolam (XANAX) 0.5 mg tablet Take 0.5 mg by mouth as needed. propranolol ER (INDERAL LA) 80 mg 24 hr capsule Take 80 mg by mouth once daily. prazosin (MINIPRESS) 1 mg cap Take 1 mg by mouth every evening. gabapentin (NEURONTIN) 300 mg capsule Take 1 capsule by mouth every morning AND 2 capsules daily at bedtime. Do all this for 180 days. colchicine 0.6 mg tablet Take 1 tablet by mouth once daily. montelukast (SINGULAIR) 10 mg tablet meclizine (ANTIVERT) 25 mg tab Take 25 mg by mouth as needed. ubrogepant (UBRELVY) 100 mg tablet Take 1 tablet by mouth as needed (migraine). Can repeat in 2 hours if needed. No more than 2 doses in 24 hours. naratriptan (AMERGE) 2.5 mg tablet Take 1 tablet by mouth as needed. TAKE ONE(1) TABLET AT THE ONSET OF HEADACHE; IF HEADACHE RETURNS OR DOES NOT FULLY RESOLVE, THE DOSE MAY BE REPEATED AFTER 4 HOURS; DO NOT EXCEED FIVE(5) MG IN 24 HOURS. diclofenac potassium (CATAFLAM) 50 mg tablet 1 tab at onset of headache. May take every 8 hours as needed for pain. Take with food, and no more than 10 days per month. ondansetron (ZOFRAN) 4 mg tablet Take 1 tablet by mouth once daily as needed (for nausea.). DULoxetine (CYMBALTA) 60 mg capsule once daily. tetracycline, nystatin, hydrocortisone, diphenhydrAMINE MAGIC MOUTHWASH SUSPENSION 5 mL twice daily as needed. Swish and Swallow as directed. Compounding Instructions: Empty the contents of 3 capsules of Tetracycline HCl 250mg into a 180ml gonsalo bottle. Add 120 ml of Diphenhydramine Elixir 12.5mg/5ml and shake well. Add 0.5ml of Hydrocortisone 12mg/ml Soln. to bottle (breaks up foam). Add 30ml Ora-Sweet. Add 15ml Nystatin 100,000 Unit/ml Susp and shake well. Label bottle Shake well (Patient not taking: Reported on 12/15/2022) multivit,thx,calcium,iron,mins (MULTIVITAMIN AND MINERAL ORAL) Take by mouth. (Patient not taking: Reported on 12/15/2022) No current facility-administered medications for this visit. Past Medical and Surgical History: has a past medical history of Fibromyalgia, IBS (irritable bowel syndrome), and Migraines. has a past surgical history that includes breast augmentation with implant (Bilateral). Social History Tobacco Use Smoking status: Former Types: Cigarettes Start date: 07/14/2009 Quit date: 10/10/2012 Years since quittin.2 Smokeless tobacco: Never Substance Use Topics Alcohol use: Yes Comment: rarely maybe 1x/month Family History: family history includes Fainting in her mother; Hypertension in her father; Parkinson s Disease in her paternal grandmother; Schizophrenia in her half-brother. Objective Vital Signs: BP 124/86 (BP Site: Left Arm, BP Position: Sitting, BP Cuff Size: Regular Adult) Pulse 87 SpO2 97% General Physical Examination: General: Awake, alert, interactive, no acute distress, good nutritional status, normal development, well-kept Heart: RRR normal S1S2 no MRG no carotid bruits General Neurological Examination: Neurological Exam Mental Status Awake and alert. Oriented only to person, place and situation. Recent and remote memory are intact. no dysarthria present. Attention and concentration are normal. Fund of knowledge is appropriate for level of education. Thinks date is the She has a lot of trouble doing the months backwards. Cranial Nerves CN II: Right visual acuity: Counts fingers. Left visual acuity: Counts fingers. Right normal visual field. Left normal visual field. CN III, IV, : Extraocular movements intact bilaterally. No nystagmus. Normal saccades. Normal smooth pursuit. Normal lids and orbits bilaterally. Pupils equal round and reactive to light bilaterally. CN V: Facial sensation is normal. CN VII: Full and symmetric facial movement. CN VIII: Hearing is normal. CN IX, X: Palate elevates symmetrically CN XI: Shoulder shrug strength is normal. CN XII: Tongue midline without atrophy or fasciculations. Possible tongue fasciculations, though I am not confident because there are ongoing tongue movements.. Motor Normal muscle bulk throughout. Possible tongue fasciculations.. Normal muscle tone. The following abnormal movements were seen: Right ankle dorsiflexion is 4/5 Tone normal in neck and all four. She has a high freq low amp bilateral upper extremity resting tremor, intermittent, difficult to determine if it is distractible She has a distractible postural tremor She has distractible/variable kinetic tremor (is gone at times). . Sensory Temperature abnormality: Vibration abnormality: Absent temperature sensation at feet, severely diminished vibration sensation, in feet.. Reflexes Right Left Brachioradialis 2+ 2+ Biceps 2+ 2+ Triceps 2+ 2+ Patellar 3+ 3+ Achilles 2+ 2+ Right Plantar: mute Left Plantar: mute Right pathological reflexes: Ulises's present. Tromner present. Suprapatellar present. Crossed adductor present. Ankle clonus absent. Left pathological reflexes: Ulises's present. Tromner present. Suprapatellar present. Crossed adductor present. Ankle clonus absent. Coordination Right: Xylsgw-zm-cfet normal. Rapid alternating movement abnormality: Xfhp-km-bmvx normal.Left: Ewgviq-os-cdfh normal. Rapid alternating movement abnormality: Cysk-ym-hyuj normal. JENAE tested: R L Finger tapping 1 1 (ints) Hand open/close 2 2 (slow, no decrement) Hand pro/sup 2 0 Toe tapping 2 (slow) 0 Heel tapping 0 0 . Gait Casual gait: Normal stance. Reduced stride length. Freezing and hesitant gait. Reduced right arm swing. Normal left arm swing.Normal toe walking. Normal heel walking. Normal tandem gait. Romberg is present. Normal pull test. Able to rise from chair without using arms. Pertinent Studies NERVE CONDUCTION STUDY AND ELECTROMYOGRAM REPORT Patient Name: Bethanie Dinero female : 1990 Visit Date: 03/25/22 31 y.o. Examining MD: Zacarias Da Silva MD Infrastructure Administrator: None Temp (!) 89.1 F (31.7 C) (Skin) Referring Provider: Nolberto Roy* Indication: M54.41,G89.29 (ICD-10-CM) - Chronic low back pain with right-sided sciatica, unspecified back pain laterality. A nerve conduction study and EMG of both lower extremities was requested by the referring provider. Impression: This is a normal study of both lower extremities. 1. There is no electrophysiologic evidence of a large fiber neuropathy, myopathy, or radiculopathy distal to the dorsal root ganglia in the segments studied. Thank you for the referral. Sincerely, Zacarias Da Silva MD This note was created with voice recognition software. Grammatical, syntax and spelling errors may be inevitable. Summary: Extensive electrodiagnostic studies and needle EMG were carried out in the lower extremities Technical limitations: Patient had difficulty tolerating the needle examination All studies, including the needle EMG of both lower extremities are normal. Findings: Motor Nerve Study Peroneal Nerve Rec Site: EDB Lat (ms) Amp (mV) Dist (mm) C.V. (m/s) Stim Site L R L R L R L R Ankle 5.3 4.7 5.8 6.9 Fib.Head 11.2 10.6 5.6 6.2 280 290 47.3 49.0 Pop.Fos. 12.2 11.8 5.6 6.3 70 70 70.0 60.0 Motor Nerve Study Right Tibial Nerve Rec Site: AH Lat (ms) Amp (mV) Dist (mm) C.V. (m/s) Stim Site Ankle 4.8 13.4 Pop.Fos. 13.2 10.8 370 44.4 Motor Nerve Study Right Tibial Nerve Rec Site: AH Lat (ms) Amp (mV) Dist (mm) C.V. (m/s) Stim Site Ankle 5.2 16.0 Pop.Fos. 14.2 14.0 380 42.2 Sensory Nerve Study Sural Nerve Rec Site: Ankle Lat (ms) Pk Lat (ms) Amp (uV) Dist (mm) C.V. (m/s) Stim Site L R L R L R L R L R mid calf 3.3 3.3 4.1 4.3 5.5 12.7 140 140 42.0 42.0 EMG Study Name Ins Act Fibs Fascic Polyph Ampl Dur Recruit Int. Pat L. EDB Normal L. Tibialis A Normal L. Peron L. Normal L. Vastus L. Normal L. Gluteus M.Normal R. EDB Normal R. Tibialis A Normal R. Peron L. Normal R. Vastus L. Normal R. Gluteus M.Normal Left Peroneal Nerve Right Peroneal Nerve Right Tibial Nerve Right Tibial Nerve Left Sural Nerve Right Sural Nerve Normal Values Motor Nerves Location Distance (cm) Distal Latency Amplitude CV (m/s) Median APB 7 <4.5 > 4.0 >56 Ulnar ADM 6.5 <3.6 >6.0 >51 Radial EDC - <3.1 - >67 Peroneal EDB 8.5 <6.6 >2.0 >41 Peroneal TA 10 <6.6 >5.1 43 Tibial AH 8 <6.1 >4.0 >40 Sensory Nerves Median Anti Digit 2 13 <3.6 >15 >56 Ulnar Anti Digit 5 11 <3.1 >10 >54 Radial Anti Snuff 10 <2.9 >15 >49 Median Ortho Median Wrist 13 <3.6 >10 - Ulnar Ortho Ulnar Wrist 11 <3.1 >0 - Median Palm Median Wrist 8 <2.3 >50 >56 Ulnar Palm Ulnar Wrist 8 <2.3 >15 >55 Sural Lat Malleolus 14 <4.5 >6 (<60) >40 Superficial Peroneal Ankle 14 <4.1 >0 Medial Plantar Med Malleolus 12-14 <4.0 >7 (<55) Lateral Plantar Med Malleolus 4.6 > 3 (<55) *Source of normal values: [facility] EMG Date/Time: 03/25/2022 10:29 AM Performed by: Zacarias Da Silva MD Authorized by: Nolberto Perez MD Verbal consent: obtained Written consent: obtained Consent given by: patient Relevant documents: Relevent documents present and verified. Medical history, medications, allergies and physical assessment reviewed/completed Required items: required blood products, implants, devices, and special equipment available Patient identity confirmed: verified patient name and and verbally with patient Time out: Immediately prior to procedure a time out was called to verify the correct patient, procedure, equipment, customer support consultant and site/side marked as required. Physician or proceduralist has discussed critical or nonroutine steps, procedure duration and anticipated blood loss: N/A All team members agree to proceed: N/A Local anesthesia used?: No Patient sedated: no Patient tolerance: Patient tolerated the procedure well with no immediate complications MRI Lspine IMPRESSION: Mild levoconvex scoliosis and minor malalignment associated with little to mild spondylosis most significantly disc and facet disease at L5-S1 and L4-5. L5-S1, minimal disc protrusion/herniation with annular tear. L4-5, subtle disc bulging flattens the thecal sac. There is no substantial spinal canal nor foraminal stenosis. There is no intrinsic abnormality conus medullaris nor is there pathologic postcontrast enhancement. Anatomic Lumbar Variant: None. L4-5 is considered the level of the iliac crest and assume there are 5 lumbar-type vertebrae. Assessment and Plan: Assessment Ms. Dinero is a right-handed 32 year old year old female with Distractible tremors, consistent with FND. Per her history she has muscle spasms that are painful, muscle twitching, a sensation of heaviness, in addition to dizziness (thought to be BPPV), POTS, fibromyalgia, migraines, IBS, and twitching in her leg muscles. She has documented low B6 and B12 levels. On exam, in addition to distractible tremors, she has neuropathy, hyperreflexia, weakness (right leg, on formal strength testing, but not when walking), dec arm swing on right, slow JENAE, no clear atrophy of muscles, and possible tongue fasciculations. She has a video of leg twitching movements that may represent leg fasciculations, but we were unable to get this loaded from her phone today. Impression: B12 and B6 deficiency related neuropathy, cannot rule out myelopathy. Also, cannot rule out MND given LMN and UMN signs both present. Also, she has functional tremors. This is the smallest of her concerns at this point, we can readdress this in the future after some more work-up. The following are the current problems noted and addressed during this visit: Spinal stenosis of cervical region (primary encounter diagnosis) Hyperreflexia Fasciculations Weakness B12 deficiency Neuropathy Functional tremor Vitamin b6 deficiency Plan 12/21/2022 Visit: Agree with skin biopsy for neuropathy workup More labwork related to B12, B6, B9 levels, and for muscle spasms. Repeat EMG, MND protocol Please, send us the video if you can, of the leg muscle twitching. This can be organized via [employer]. MRI CT spine Wo contrast for suspicion of cord compression or myelopathy. Tremors are consistent with FND at this time. This is the smallest concern though. We will keep an eye on this for now. Follow up in 2 months after the above workup is done. PT has been ordered. Patient's perception of importance for healthcare provider to let them know of research trials for which they may be eligible? Very Important Return at or around: 02/21/23 Level of service: Est level 5 + 2 units 29890 (>55 min, [id number] for each 15 min > 40). Time spent 75 min on the day of service, which included preparing to see the patient, pdkw-mw-ekbe patient care, completing clinical documentation, obtaining and/or reviewing separately obtained history, performing a medically appropriate examination, counseling and educating the patient/family/caregiver, and ordering medications, tests, or procedures. Thank you for allowing me to be part of the clinical care of this patient! I look forward to continued participation in the patient s care with you. Please do not hesitate to call with any questions. Sincerely, Rubin Verde MD documented in this encounter [facility] 12-21-2022 Note [facility] 12-21-2022 Instructions Rubin Verde MD - 12/21/2022 10:49 AM EDT It was a pleasure to see you today. We addressed the following diagnoses: Spinal stenosis of cervical region (primary encounter diagnosis) Spinal stenosis of lumbar region, unspecified whether neurogenic claudication present Hyperreflexia Fasciculations Weakness B12 deficiency Neuropathy Functional tremor My recommendations are as follows: 12/21/2022 Visit: Agree with skin biopsy for neuropathy workup Repeat EMG, MND protocol Please, send us the video if you can, of the leg muscle twitching. This can be organized via [employer]. MRI CT spine Wo contrast for suspicion of cord compression or myelopathy. Tremors are consistent with Functional Neurological Disorder at this time. This is the smallest concern though. We will keep an eye on this for now. Follow up in 2 months after the above workup is done. PT has been ordered. Patient's perception of importance for healthcare provider to let them know of research trials for which they may be eligible? Very Important Return at or around: 02/21/23 If there are any concerns before your next visit, please call or you can send a message through [employer]. You can also now schedule and select appointments through [employer]. Rubin Verde MD documented in this encounter [facility] 12-15-2022 Miscellaneous Notes Addended by: KELVIN SHELTON on: 12/15/2022 12:18 PM Modules accepted: Orders documented in this encounter [facility] 12-15-2022 Instructions Kelvin Shelton APRN.CNP - 12/15/2022 12:01 PM EDT 1) Labs -I will order B12 injections, PCP to teach you to complete injections. 2) Send me: -Minute by minute data tilt -Repeat MRI -My 3) Complete as ordered: -Skin biopsy -Autonomic reflex with tilt -Audiogram -ENT consult documented in this encounter [facility] 12-15-2022 History of Present illness Narrative Images from the original note were not included. [facility] Follow-Up/Established Patient Visit Chief Complaint/Issues: Bethanie Dinero is a 32 year old handed right-handed female seen in the [facility] for: Follow up Multiple complaints Brief HPI /Most Recent Department Assessment and Plan: Seen 07/01/2022 for initial evaluation: ...This is a complex case and we discuss many symptoms today. 1) Dizziness -Room spinning sensation -Triggers: head turns and rolling in bed -Daily to multiple per day, up to 20 min -Likely BPPV +Tinnitus and aural fullness, need to rule our Meniere's or other etiology -Consult to ENT and audiogram 2) Lightheadedness -Hypotension at baseline, normal BP today +Tachycardia on standing -Likely POTS -Autonomic reflex with tilt 3) GI symptoms -Vacillating constipation and diarrhea -Vomiting undigested food 4-5 hours after meals -Sometimes loss of urine when vomiting -Seeing GI locally who told her she may have gastroparesis -Has upcoming gastric emptying locally -Given vitamin deficiencies need to check for celiac -Incomplete fecal emptying / smearing -Need to rule out cauda equina 4) Paresthesias -B12 deficient -Asymmetric small fiber distribution L fingers to forearm, L toes to mid calf -Change from Dr. Vinson's exam in April -Skin biopsy for small fiber -Possible celiac etiology -Other labs if positive biopsy 5) Tremulousness -Will check labs -Essential tremor 6) Decreased taste -Mid tongue -Likely secondary to B12 deficiency 7) Sleep abnormalities -Since childhood, recent changes -Upcoming sleep study -Trouble falling and staying asleep -Some dream enactment -Some hallucinations at night 8) Muscle locking -2nd and third digit intermittent locking sensation -Not ulnar no numbness or claw -Can feel foot locking as well -Maybe dupuytren's contracture, but no palpable knot in palms -Will check cramp labs 9) Headaches -7-10 per month -Migraine with aura -Has tried sumatriptan without benefit, not yet tried sumatriptan 10) Transient speech deficit and weakness -Single episode in December with local work up -No TIA or stroke identified 11) Exam abnormalities today -Left V1,V2, and V3 decreased sensation to light touch; V2, V3 decreased to temp and pin; + tuning fork - functional symptom -Mild Hip flexor weakness need to rule out cauda equina given back pain and incontinence -Other sensory abnormality discussed above under paresthesias PLAN 1) Labs (fasting) - Low B12 2) NM gastric emptying study locally - Not received 3) Audiogram - Not completed 4) Vestibular therapy - Not completed 5) MRI lumbar spine - see below 6) Autonomic reflex test - Not completed / scheduled 7) Skin biopsy - Not completed / scheduled 8) Consults: -ENT for tinnitus, dizziness, aural fullness - Not completed Current management of orthostatic condition: Conservative Measures: -Increased water intake (2-2.5 liters of water daily) -Increased salt intake (3-5 grams daily) -Compression stockings -Cardiac Rehab / Progressive exercise Today: Patient roomed over 22 minutes into visit slot due to late arrival. Portions of history, exam, and plan are shortened to accommodate this. Recommended patient make another appointment to discuss additional concerns not addressed today. She had tilt testing through her stationary equipment mechanic locally which showed POTS. She has been struggling to finish testing due to financial issues. She continues to have tinnitus intermittently. She is feeling overall [place], feeling overall a little better. She reports her psychiatrist suspected she may have had serotonin syndrome. She was having involuntary jerking of the feet. She also feels like she has some new tremor in the R arm. She often has internal vibrating sensation. She feels the symptoms are overall decreasing over time. She reports her PA refused to order her B12 injections. She continues to struggle with her cognition and basic functions such as using her phone. She reports she still bending over makes her get weak legs and the legs can buckle. She is still struggling with low back pain. She is following with pain management Dr. Madrid for the back pain, and doing PT prior to possible injections. She is struggling significantly with constipation as well. She is having some blood in her stool. We discuss to call her GI today. Not had gastric emptying study yet. She is seeing neuro-ophthalmology in [place] for occular migraine symptoms and loss of peripheral vision on the right side. They are planning for repeat MRI. [facility] PAST MEDICAL HISTORY Diagnosis Date Fibromyalgia IBS (irritable bowel syndrome) Migraines PAST SURGICAL HISTORY Procedure Laterality Date BREAST AUGMENTATION WITH IMPLANT Bilateral ALLERGIES Allergen Reactions Metoclopramide Shortness of Breath, Other: See Comments Anxiety Mold Hives Social History Tobacco Use Smoking status: Former Types: Cigarettes Start date: 07/14/2009 Quit date: 10/10/2012 Years since quittin.1 Smokeless tobacco: Never Substance Use Topics Alcohol use: Yes Comment: rarely maybe 1x/month FAMILY HISTORY Problem Relation Age of Onset Fainting Mother Hypertension Father Parkinson s Disease Paternal Grandmother Schizophrenia Half-brother Medications Current Outpatient Medications on File Prior to Visit Medication Sig gabapentin (NEURONTIN) 300 mg capsule Take 1 capsule by mouth every morning AND 2 capsules daily at bedtime. Do all this for 180 days. colchicine 0.6 mg tablet Take 1 tablet by mouth once daily. tetracycline, nystatin, hydrocortisone, diphenhydrAMINE MAGIC MOUTHWASH SUSPENSION 5 mL twice daily as needed. Swish and Swallow as directed. Compounding Instructions: Empty the contents of 3 capsules of Tetracycline HCl 250mg into a 180ml gonsalo bottle. Add 120 ml of Diphenhydramine Elixir 12.5mg/5ml and shake well. Add 0.5ml of Hydrocortisone 12mg/ml Soln. to bottle (breaks up foam). Add 30ml Ora-Sweet. Add 15ml Nystatin 100,000 Unit/ml Susp and shake well. Label bottle Shake well montelukast (SINGULAIR) 10 mg tablet meclizine (ANTIVERT) 25 mg tab Take 25 mg by mouth. multivit,thx,calcium,iron,mins (MULTIVITAMIN AND MINERAL ORAL) Take by mouth. ubrogepant (UBRELVY) 100 mg tablet Take 1 tablet by mouth as needed (migraine). Can repeat in 2 hours if needed. No more than 2 doses in 24 hours. naratriptan (AMERGE) 2.5 mg tablet Take 1 tablet by mouth as needed. TAKE ONE(1) TABLET AT THE ONSET OF HEADACHE; IF HEADACHE RETURNS OR DOES NOT FULLY RESOLVE, THE DOSE MAY BE REPEATED AFTER 4 HOURS; DO NOT EXCEED FIVE(5) MG IN 24 HOURS. diclofenac potassium (CATAFLAM) 50 mg tablet 1 tab at onset of headache. May take every 8 hours as needed for pain. Take with food, and no more than 10 days per month. ondansetron (ZOFRAN) 4 mg tablet Take 1 tablet by mouth once daily as needed (for nausea.). DULoxetine (CYMBALTA) 60 mg capsule once daily. No current facility-administered medications on file prior to visit. Relevant Current Medications: Gabapentin 300 mg AM, 600 mg QHS Duloxetine 60 mg daily Naratriptan PRN Ubrelvy PRN Medications tried previously (failed): Sumatriptan Rizatriptan Relevant Work Up To Date Labs Component Ref Range & Units 4 mo ago Vitamin B12 232 - 1,245 pg/mL 217Low Ionized Ca++ WNL Ceruloplasmin, vit E WNL MMA WNL CK WNL Copper, zinc WNL B1 WNL Transglutaminase WNL OSH Tilt 11/10/2022 PROCEDURE SUMMARY: After explaining the risk, benefits and alternatives to the procedure, informed written consent was obtained. The patient was brought to the tilt table laboratory in a fasting and resting state. The patient was placed on the tilt table in the supine position, ECG patches were applied and an IV was placed. The patient's baseline blood pressure was 145/89 mmHg with a heart rate of 85/minute. The patient was then raised to the 70 degree head upright tilt position and pulse rate, blood pressure and cardiac rhythm were monitored and recorded each minute of the study for a maximum of 30 minutes. During the initial 20 minutes of the study, the patient's blood pressure ranged from a high of 172/92 mmHg to a low of 107/71 mmHg, while their heart rate ranged from a low of 103/minute to a high of 118/minute. During this period, the patient reported moderate lightheadedness, palpitations, headache, general fatigue, leg weakness, vision changes, dry heaves, nausea. During the last 10 minutes of the study, the patient was given 0.4 mg of sublingual nitroglycerin in order to simulate sympathetic stimulation and increase the patients heart rate by at least 20%. During this time, the patient's blood pressure ranged from a high of 152/80 mmHg to a low of 109/51 mmHg, while their heart rate ranged from a low of 103/minute to a high of 127/minute. During this period, the patient reported severe lightheadedness, palpitations, headache, general fatigue, leg weakness, vision changes, dry heaves, nausea. At this point, the patient was returned to the supine position and monitored for an additional ten minutes. Once the patient felt well enough to be discharged home, they were discharged home with instructions to follow up with their primary care physician and/or stationary equipment mechanic as previously scheduled. STUDY CONCLUSIONS: Abnormal study. Heart rate and blood pressure response suggest of mild orthostatic intolerance/postural orthostatic tachycardia syndrome. Combined with vigilant maintenance of adequate fluid hydration and moderate salt intake, medicines like Serotonin Selective Reuptake Inhibitor (SSRI), Midodrine, Florinef and/or beta michael therapy should be considered. MRI Lumbar Spine 09/29/2022 IMPRESSION: Mild levoconvex scoliosis and minor malalignment associated with little to mild spondylosis most significantly disc and facet disease at L5-S1 and L4-5. L5-S1, minimal disc protrusion/herniation with annular tear. L4-5, subtle disc bulging flattens the thecal sac. There is no substantial spinal canal nor foraminal stenosis. There is no intrinsic abnormality conus medullaris nor is there pathologic postcontrast enhancement. Anatomic Lumbar Variant: None. L4-5 is considered the level of the iliac crest and assume there are 5 lumbar-type vertebrae. General Examination: BP 123/81 (BP Site: Right Arm, BP Position: Sitting, BP Cuff Size: Regular Adult) Pulse 85 Ht 170.2 cm (5' 7 ) Wt 83.6 kg (184 lb 6.4 oz) SpO2 100% BMI 28.88 kg/m 12/15/22 1119 BP: 123/81 BP Site: Right Arm BP Position: Sitting BP Cuff Size: Regular Adult Pulse: 85 SpO2: 100% Weight: 83.6 kg (184 lb 6.4 oz) Height: 170.2 cm (5' 7 ) Neurological Examination: Cognition The patient is alert and oriented times four. Lucid and organized in conversation. Able to provide detailed medical hx. Speech Speech is Normal in fluency, volume, and clarity. No dysarthria. Content and syntax are coherent. Comprehension: Able to follow several step commands. Cranial Nerves PERRLA No ptosis. Visual perrin are full to confrontation. Extraocular movements are intact. Smooth saccades and pursuits. No nystagmus. Facial motor exam is strong and symmetric. Equal sensation of trigeminal nerve - V1,V2, and V3. Soft palate elevation is symmetric, tongue is in midline, no tongue fasciculation. Neck range of motion is full. Trapezius Strength is symmetric, graded 5/5. Tone and Bulk +Tightness of R arm with passive movement, feels like elbow is catching Tone and bulk is normal and preserved bilaterally of legs. No apparent muscle atrophy. No pes cavus or hammer toes. Strength Right Left Shoulder Abduction 5/5 5/5 Elbow Flexion 5/5 5/5 Elbow Extension 5/5 5/5 Wrist Flexion 5/5 5/5 Wrist Extension 5/5 5/5 Finger Extension 5/5 5/5 Finger Flexion 5/5 5/5 Finger Abduction 5/5 5/5 Hip Flexion 4+/5 5/5 Hip Adduction 5/5 5/5 Hip Abduction 5/5 5/5 Knee Flexion 5/5 5/5 Knee Extension 5/5 5/5 Ankle Dorsiflexion 5/5 5/5 Ankle Plantarflexion 5/5 5/5 Movement/Coordination Finger-to- nose-finger and cfch-va-nxqf intact bilaterally. No evidence of ataxia arms. No limb dysmetria of arms and legs. Rapid alternating movements of pronation and supination, finger and hand tapping intact. There is no asterixis of the hands. No rigidity, cog wheeling, or bradykinesia. Bilateral action tremor No extrapyramidal findings or dystonia. Sensation Reduced temperature bilateral hands; RLE below knee to toes, LLE mid calf to toes Decreased pinprick to bilateral hands ;RLE mid calf to toes, LLE ankle to toes Intact to light touch, pinprick, and temperature sensation at toes and fingers, bilaterally. Normal proprioception (toe position and thumb). Normal finger vibration and toe vibration. Reflexes Right Left Bicep 2/4 2/4 Tricep 2/4 2/4 Brachioradialis 2/4 2/4 Patella 2/4 2/4 Ankle 2/4 2/4 Negative Babinski (toes curl down). Perez + R Bilateral clonus x1-2 Gait Able to stand without upper body assistance. Normal station and stride. Assessment & Plan 12/15/2022 - General Neurology, Kelvin Shelton APRN.RN CARDIOLOGY ASSESSMENT Bethanie Dinero is a 32 year old here today for follow up. Bethanie Dinero has a has a past medical history of Fibromyalgia, IBS (irritable bowel syndrome), and Migraines. Seen initially for evaluation of multiple complaints. She reported hypotension and tachycardia, Autonomic reflex with tilt ordered to assess for POTS. She had cardiac tilt with NTG induction completed locally, and was told she has POTS. I cannot see any minute by minute data, and the test report remarks on wide swings in HR and BP. We discuss we will need to repeat her autonomic testing. She reported room spinning dizziness, commonly triggered by head turns and rolling in bed. Most consistent with BPPV. Given tinnitus and aural fullness consult to ENT and audiogram, neither of which were completed. Also ordered vestibular PT which was not completed. Had complaints of vacillating constipation and diarrhea, vomiting after eating. She reported seeing local GI with plan for NM gastric emptying study, though I cannot see this. She also complained of fecal smearing, though no total loss of bowel control. MRI lumbar spine completed demonstrating mild scoliosis and spondylosis, with facet changed L4-5, L5-S1. She also had mild disc protruction L5-S1, and disc buldge L4-5 with flattening of the tecal sac. Spine consult placed, and she is following with pain management. Currently doing PT. She had initial complaints of muscle locking of the hands as well as foot locking sensation. Consistent with possible Dupuytren's contracture, though no knots in her palm. She is currently seeing headache clinic. For her headaches. Singular episode of transient speech deficit and weakness in December 2021, seen in ER without TIA or stroke identified. On initial exam, she had facial paresthesias and positive split tuning fork sign. This is resolved today. She does have persistent asymmetric sensory disturbance in the legs, and we discuss the importance of pursuing skin biopsy. She has significant B12 deficiency and her PCP has not continued her injections. She also reported decreased taste which we discussed was likely secondary to B12 deficiency. PLAN 1) Labs -I will order B12 injections, PCP to teach you to complete injections. 2) Send me: -Minute by minute data tilt -Repeat MRI -My 3) Complete as ordered: -Skin biopsy -Autonomic reflex with tilt -Audiogram -ENT consult Return After testing. My impression and recommendations were discussed at length with the patient (and family members, if present). The patient and family (if present) voiced understanding to my recommendations. All questions were answered. Medication side effects discussed as applicable. The patient was provided with a detailed after visit summary highlighting my impression and recommendations. I spent a total of 35 minutes on the date of the service which included preparing to see the patient, [id number] patient care, completing clinical documentation, obtaining and/or reviewing separately obtained history, performing a medically appropriate examination, counseling and educating the patient/family/caregiver, and ordering medications, tests, or procedures. Kelvin Shelton APRN.[facility] General Neurology [address] [place]. [address] Appointment: [phone] During our face to face clinical encounter we discussed my concerns neurologically in terms of diagnosis, impact on health and activities of living, and addressed questions. I tried to reassure the patient and also address questions. I explained to the patient to call if any questions, to review results, and I want to see them return for neurological follow up as mychart as next steps of communication is agreed upon Patient verbalizes understanding and I have addressed concerns and questions at this visit Patient has my contacts, educational material provided, and my chart sign up. After visit summary discussed. 1. This office note has been dictated and may contain minor typographic errors that escaped review. 2. The nursing staff and medical assistants are a major part of YOUR TREATMENT TEAM and will be handling your phone calls and inquiries, if any. Unless explicitly told otherwise at the time of your office visit, your study results and ensuing treatment plans will be discussed during your follow-up appointment. If you do not have a follow-up appointment and wish to discuss any issues directly with me, please feel free to obtain one. 3. It is my practice to not fill disability or any other insurance-related forms/documention. All of the office notes, study results, and other pertinent documentation generated as part of your evaluation will be available to you and to your Primary Care Physician (PCP). Use of this material to complete such forms will be at the discretion of your PCP/referring physician documented in this encounter [facility] 12-15-2022 Note [facility] 12-14-2022 Miscellaneous Notes Images from the original note were not included. Patient last seen 10/19/2022. Per office note: documented in this encounter [facility] 11-10-2022 History of Present illness Narrative Explained policies and procedure of an echocardiogram/Doppler study. documented in this encounter [employer] Phone: 11-10-2022 History of Present illness Narrative Instructed on objectives and procedure of a tilt study documented in this encounter [facility] [employer] Phone: 11-09-2022 Miscellaneous Notes Patient reporting difficulty swallowing, liquids going down wrong, and biting her tongue in her sleep. Will also bring up to psychiatrist at next appointment. Asking advice. Grisel Kasper RN documented in this encounter [facility] 11-08-2022 Miscellaneous Notes Patient last seen on 10/19/22. documented in this encounter [facility] 10-19-2022 Instructions Megan Kern PA-C - 10/19/2022 8:44 AM EDT Continue gabapentin at 300mg in the AM and 600mg in the PM Consider Botox PREEMPT Protocol Consider CGRP monthly injection: aimovig, emgality, ajovy Use caution with naratriptan if your blood pressure is elevated Please follow up in 1 month or sooner if needed documented in this encounter [facility] 10-19-2022 History of Present illness Narrative Headache Center - Follow up Virtual Visit During this COVID-19 pandemic, patient's headache clinic evaluation was scheduled as a virtual visit using the following platform Zoom - patient currently located in [facility] was identified by name and and consented to the video evaluation and its limitations. Based on this evaluation it may be necessary for them to schedule a follow up evaluation with me or other neurologists for formal physical examination and if necessary,other studies. I have communicated my name and active licensure. The patient's identity and physical location were verified at the time of this visit. Either the patient or their legal office services representative has been informed of the risks and benefits of -- and alternatives to -- treatment through a remote evaluation and consents to proceed with the evaluation remotely. Accompanied by: Child Primary Problem List: ACTIVE PROBLEM LIST Scoliosis of Lumbar Spine Lumbar Herniated Disc Discogenic Low Back Pain Annular Tear of Cervical Disc Bilateral Lumbar Radiculopathy Lumbar Spondylosis Chief Complaint: Headaches Impression and Plan from last visit: 09/08/22 with me IMPRESSION: Bethanie Dinero is a 32 year old year old female, with a history of chronic migraine with aura, depression, anxiety, fibromyalgia, IBS and B6/B12 deficiency following up today virtually for migraines. Her neurological examination is essentially normal at this visit. Having daily migraines. She is being worked up by rheumatology and did discuss that migraines could improve if she is diagnosed and treats underlying rheumatology issue - she is hopeful of this. She did just start gabapentin 2 days ago and already seeing benefit with body pain symptoms - encouraged to continue on this as it could help with headaches as well but can take 6-8 weeks and she may need a higher dose. I do not want to introduce another daily medication at this time since she just started gabapentin and Singulair. Will trial Ubrelvy for rescue use - reviewed dosing and potential side effects. Discussed options for bridge therapy at this time such as depakote or parafon forte - she would like to trial parafon forte at this time - reviewed dosing and potential side effects. Reviewed FMLA/disability policies for this department and will send patient a letter over [employer] stating diagnosis and that she is under CC care for it. Happy to send this office note to PCP if provided a fax number but also discussed that she has access to all notes in [employer] account. Agree with neuro-ophthalmology evaluation for persistent loss of peripheral vision - reassuring that she had a dilated eye exam earlier this week. Patient verbalized understanding and agreed to treatment plan. She will follow up in 1 month or sooner if needed. PLAN: Continue cymbalta 60mg (with an outside department), gabapentin (with a local manager drive) Continue naratriptan, zofran, diclofenac as needed Trial Ubrelvy as needed Parafon forte bridge for current pain See neuro-ophthalmology Letter stating diagnosis sent Follow up 1 month, PRN Interval Headache History: Bethanie Dinero is a 32 year old year old female, with a history of chronic migraine with aura, depression, anxiety, fibromyalgia, IBS and B6/B12 deficiency following up today virtually for headaches. Since the last visit, the patient states that her headaches are slightly worse. Had now increased her gabapentin to 300mg BID about a week or two ago - does feel the increase has helped - will take a third 300mg as needed for headache which is helpful. She was seen in the ED locally for migraine and HTN two days ago - reports they did nothing - reports she was given one tablet of ativan - reports her BP was 162/132. Reports ubrelvy has been helpful - kicks in in about an hour and can reduce pain but is hit and miss - does help intensity overall - denies side effects. Has appointment with neuro-opthalmology later this week in [place] with Dr. Cortez. Naratriptan is helpful and does work a bit better than ubrelvy. Lost her naratriptan script. Denies hx of CA/stroke/CAD. She does check her BP at home but has her BP cuff packed away due to a recent move. BP at office visit with general neurology on 10/14/22 was 123/68. Has been being worked up by rheumatology and was told to see eye doctor and INFORMATION MANAGEMENT MANAGER - has been getting pustules on hips and tongue - will have migraine around this time too. Headache 1 Onset: - Childhood Location: right, retro-orbital, temporal, occipital and left (right>left, starts in eyes and radiates directly backwards) Quality/Description: throbbing and pressure (pulsing) Associated Symptoms: Photophobia: yes Phonophobia: yes Nausea: yes Vomiting: yes Other symptoms: osmophobia, dizziness, lightheadedness, vertigo, blurred vision, neck pain, fatigue, weakness and tinnitus (weakness of arms) Worse with activity: yes Number of migraine headache days/month: 25 Migraine headache severity: 10/10 Number of NON-migraine headache days/month: 0 Non-migraine headache severity: 6 Total Number of headache days/month: 25 Number of headache free days/month: 5 Duration of headaches with treatment: 2 days (to 3 days) (48 hours) Triggers: odors, loud noise and bright lights Most common time of day for headache to begin: Most common time of day for headache to begin: worse in evening. Aura: blurred vision and odd odor (glowing around objects, tunnel vision lasting 1 hour; smell of burnt toast) Days missed from work or school in the last month: 30 days Preventative: cymbalta 60mg (with an outside department), gabapentin 300mg BID (with PCP) Abortive: naratriptan, zofran, diclofenac, ubrelvy 100mg Contraception: none - no chance of per patient report Analgesic Butalbital/acetaminophen/caffeine (Fioricet) effective, switching to sumatriptan Anti-Convulsant Gabapentin (Neurontin) Anti-Depressant and Antipsychotic Duloxetine (Cymbalta) Started 04/2022 60mg daily Anti-Migraine Naratriptan (Amerge) Rizatriptan (Maxalt) Sumatriptan (Imitrex, Sumavel) Started 04/2022 100mg Blood Pressure Antihypertensives should be avoided due to low resting BP and orthostatic hypotension GEPANTS Ubrogepant (Ubrelvy) Supplements Magnesium Over the Counter Medications Acetaminophen (Tylenol) ineffective Acetaminophen/Aspirin/Caffeine (Excedrin, Goody s) ineffective Ibuprofen (Advil, Motrin) ineffective PAST MEDICAL HISTORY Diagnosis Date Fibromyalgia IBS (irritable bowel syndrome) Migraines PAST SURGICAL HISTORY Procedure Laterality Date BREAST AUGMENTATION WITH IMPLANT Bilateral ALLERGIES Allergen Reactions Metoclopramide Shortness of Breath, Other: See Comments Anxiety Mold Hives Current Medications: ALPRAZolam (XANAX) 0.5 mg tablet Take 0.5 mg by mouth. colchicine 0.6 mg tablet Take 1 tablet by mouth once daily. tetracycline, nystatin, hydrocortisone, diphenhydrAMINE MAGIC MOUTHWASH SUSPENSION 5 mL twice daily as needed. Swish and Swallow as directed. Compounding Instructions: Empty the contents of 3 capsules of Tetracycline HCl 250mg into a 180ml gonsalo bottle. Add 120 ml of Diphenhydramine Elixir 12.5mg/5ml and shake well. Add 0.5ml of Hydrocortisone 12mg/ml Soln. to bottle (breaks up foam). Add 30ml Ora-Sweet. Add 15ml Nystatin 100,000 Unit/ml Susp and shake well. Label bottle Shake well montelukast (SINGULAIR) 10 mg tablet meclizine (ANTIVERT) 25 mg tab Take 25 mg by mouth. multivit,thx,calcium,iron,mins (MULTIVITAMIN AND MINERAL ORAL) Take by mouth. ubrogepant (UBRELVY) 100 mg tablet Take 1 tablet by mouth as needed (migraine). Can repeat in 2 hours if needed. No more than 2 doses in 24 hours. naratriptan (AMERGE) 2.5 mg tablet Take 1 tablet by mouth as needed. TAKE ONE(1) TABLET AT THE ONSET OF HEADACHE; IF HEADACHE RETURNS OR DOES NOT FULLY RESOLVE, THE DOSE MAY BE REPEATED AFTER 4 HOURS; DO NOT EXCEED FIVE(5) MG IN 24 HOURS. diclofenac potassium (CATAFLAM) 50 mg tablet 1 tab at onset of headache. May take every 8 hours as needed for pain. Take with food, and no more than 10 days per month. ondansetron (ZOFRAN) 4 mg tablet Take 1 tablet by mouth once daily as needed (for nausea.). DULoxetine (CYMBALTA) 60 mg capsule once daily. gabapentin (NEURONTIN) 300 mg capsule Take 1 capsule by mouth every morning AND 2 capsules daily at bedtime. Do all this for 180 days. I have reviewed the Health Status Assessment responses and discussed these with the patient: yes Megan Kern PA-C HEADACHE SCORES: Headache Questions 09/07/2022 09/08/2022 10/19/2022 ID Migraine Screener: - - - ER visits since last office visit: 1 - - Hospital stays since last office visit - 1 - Limited ADLs in the last month: 28 - - Days missed from work or school in the last month: 30 - - Days headache pain free in the last month: 0 - - Days per month with ALL of the following symptoms - decreased productivity, light sensitivity and nausea: 28 - - Initial improvement of headache after botox injection at last visit: Not applicable, I did not have a botox injection at my last visit - - PRN medication usage in the last month: 25 - - Patient impression of improvement since last visit: Much worse Very much worse Minimally worse HIT-6 06/08/2022 09/07/2022 10/19/2022 HIT-6 66 (Severe impact) 78 (Severe impact) 76 (Severe impact) EVA - 2/7 SCORES 09/07/2022 10/17/2022 10/19/2022 EVA-2 Score 2 4 4 EVA-7 Score - 12 12 Migraine Specific QOL - Higher scores indicate better HRQL 06/08/2022 09/07/2022 10/19/2022 Role Function-Restrictive Transformed Score (range: 0-100) 62.86 8.57 20 Role Function-Preventive Transformed Score (range: 0-100) 60 10 20 Emotional Function Transformed Score (range: 0-100) 60 0 13.33 PHQ-9 09/09/2022 10/17/2022 10/19/2022 Score 7 22 22 Studies to Review: No Labs to Review: No Review of Systems: Review of system: unchanged from the previous visit (sleep patterns, mood, energy, appetite, stress, exercising). Physical Examination: Vital Signs:There were no vitals taken for this visit. General: well appearing, in no acute distress, alert Pain Behaviors: no pain behaviors observed Neurological: Mental Status: Alert and oriented to person, place and time. Affect is normal. Speech is spontaneous and fluent without dysarthria. Short and long-term memory, cognition and general fund of knowledge are good. Attention span and concentration are excellent. HEENT: Head is normocephalic and features were symmetric. Musculoskeletal: Patient able to sit up right in chair for entirety of visit. Cranial Nerves: III, IV, -EOMI: full. VII-face is symmetric without evidence of weakness. VIII-hearing intact. IMPRESSION: Chronic migraine without aura, intractable, without status migrainosus (primary encounter diagnosis) Migraine with aura and without status migrainosus, not intractable Bethanie Dinero is a 32 year old year old female, with a history of chronic migraine with aura, depression, anxiety, fibromyalgia, IBS and B6/B12 deficiency following up today virtually for migraines. Her neurological examination is essentially normal at this visit. Complex case. I still feel there could be an underlying rheumatologic issue contributing to headaches but will try to treat as migraine as well. Discussed options such as increase cymbalta or gabapentin or add in another daily oral preventative. Another option could be botox or CGRP monthly injection pending insurance approvals. At this time we made a shared decision to increase gabapentin to 300mg in the AM and 600mg qhs. Reviewed that naratriptan use with high BP puts her at increased risk of CA/stroke - educated patient to avoid naratriptan use on days her BP runs high. Patient verbalized understanding and agreed to treatment plan. She will follow up in 1 month or sooner if needed. Did recommend a visit with Dr. Ugalde within the next 3-6 months due to complexity. [facility] website checked and validated. All prescriptions have been APPROPRIATELY filled. No suspicious activity was identified. 10/19/2022 by Megan Kern PA-C PLAN: Continue cymbalta 60mg (with an outside department) Increase gabapentin to 300mg/600mg Continue naratriptan, zofran, diclofenac, ubrelvy 100mg as needed Watch BP with naratriptan use Follow up 1 month, PRN Prior Authorization: Bethanie Dinero has been previously approved for an Oral Calcitonin Gene-Related Peptide Receptor Antagonist (GEPANT) Ubrogepant for the treatment of acute migraine. The patient has demonstrated the following: Provider attests patient has had a positive clinical response: Yes Patient will not use with another Oral Calcitonin Gene-Related Peptide Receptor Antagonist (GEPANT): Yes Patient's quality of life and ability to perform ADLs has improved: Yes We suggest the patient continue treatment with GEPANT Ubrogepant. The following preventative medications have been tried for three or more months without benefit: Anti-Convulsant Gabapentin (Neurontin) Anti-Depressant and Antipsychotic Duloxetine (Cymbalta) Started 04/2022 60mg daily Blood Pressure Antihypertensives should be avoided due to low resting BP and orthostatic hypotension Supplements Magnesium The following abortive medications have been tried but require high frequency use which can lead to Medication Overuse Headache: Analgesic Butalbital/acetaminophen/caffeine (Fioricet) effective, switching to sumatriptan Anti-Migraine Naratriptan (Amerge) Rizatriptan (Maxalt) Sumatriptan (Imitrex, Sumavel) Started 04/2022 100mg GEPANTS Ubrogepant (Ubrelvy) Over the Counter Medications Acetaminophen (Tylenol) ineffective Acetaminophen/Aspirin/Caffeine (Excedrin, Goody s) ineffective Ibuprofen (Advil, Motrin) ineffective HEADACHE MANAGEMENT: (You are the primary guardian of your health and headache. Keep track of all medications: This includes the reason for use, side effects and benefits.) MEDICATION TREATMENT: Medications to Start Taking gabapentin (NEURONTIN) 300 mg capsule Take 1 capsule by mouth every morning AND 2 capsules daily at bedtime. Do all this for 180 days. Headache education was done. Discussed lifestyle modification including increased oral hydration, decreased caffeine, exercise and stress management. Discussed treatment options including preventive and acute medications, natural supplements, and infusion therapy. Discussed medication overuse headache and to limit use of acute treatments to no more than 2 days/week or 10 days/month. Discussed medication side effects, adverse reactions and drug interactions. Written educational materials and patient instructions outlining all of the above were given. RESEARCH: None at this time Follow-up: 1 month, PRN Level of Service: Virtual Visit 30 minutes Megan Kern PA-C Headache Section [facility] October 19, 2022 documented in this encounter [facility] 10-14-2022 History of Present illness Narrative Radiology Service Progress Note PATIENT NAME: Bethanie Dinero DATE OF SERVICE: October 14, 2022 TIME: 12:51 PM PATIENT IDENTITY VERIFICATION COMPLETED USING TWO (2) IDENTIFIERS: Name and Date of confirmed by patient verbally. FALL SCREENING: Has the patient had 2 falls in the last year or 1 fall with injury or currently using an Ambulatory Assistive Device (Walker, Cane, Wheelchair, Crutches, etc.)? No PATIENT GENDER DATA: Female. status: : No status: NO. PATIENT RELEVANT IMPLANT DATA REVIEWED: Not Applicable RADIOLOGY DEPARTMENT: General X-ray: Exam(s) Completed: Spine X-Ray(s): Scoliosis Series PERIPHERAL IV DATA: Not applicable SIGNED BY: RT Rossana(R) October 14, 2022 12:51 PM documented in this encounter [facility] 10-14-2022 History of Present illness Narrative Images from the original note were not included. [facility] Follow up/ Established patient visit Individuals who were included in, or assisted with the encounter were: Bethanie Dinero Etienne Vinson MD Chief Complaint/Issues: Bethanie Dinero is a 32 year old right-handed female seen in the [facility] for: Dizziness Headache GI symptoms Most Recent Neurological Assessment and Plan: Last Filed Values Date of Most Recent Assessment and Plan 07/01/22 Specialty General Neurology Assessment Bethanie Dinero is a 32 year old here today for initial evaluation. Bethanie Dinero has a has a past medical history of Fibromyalgia, IBS (irritable bowel syndrome), and Migraines. This is a complex case and we discuss many symptoms today. 1) Dizziness -Room spinning sensation -Triggers: head turns and rolling in bed -Daily to multiple per day, up to 20 min -Likely BPPV +Tinnitus and aural fullness, need to rule our Meniere's or other etiology -Consult to ENT and audiogram 2) Lightheadedness -Hypotension at baseline, normal BP today +Tachycardia on standing -Likely POTS -Autonomic reflex with tilt 3) GI symptoms -Vacillating constipation and diarrhea -Vomiting undigested food 4-5 hours after meals -Sometimes loss of urine when vomiting -Seeing GI locally who told her she may have gastroparesis -Has upcoming gastric emptying locally -Given vitamin deficiencies need to check for celiac -Incomplete fecal emptying / smearing -Need to rule out cauda equina 4) Paresthesias -B12 deficient -Asymmetric small fiber distribution L fingers to forearm, L toes to mid calf -Change from Dr. Vinson's exam in April -Skin biopsy for small fiber -Possible celiac etiology -Other labs if positive biopsy 5) Tremulousness -Will check labs -Essential tremor 6) Decreased taste -Mid tongue -Likely secondary to B12 deficiency 7) Sleep abnormalities -Since childhood, recent changes -Upcoming sleep study -Trouble falling and staying asleep -Some dream enactment -Some hallucinations at night 8) Muscle locking -2nd and third digit intermittent locking sensation -Not ulnar no numbness or claw -Can feel foot locking as well -Maybe dupuytren's contracture, but no palpable knot in palms -Will check cramp labs 9) Headaches -7-10 per month -Migraine with aura -Has tried sumatriptan without benefit, not yet tried sumatriptan 10) Transient speech deficit and weakness -Single episode in December with local work up -No TIA or stroke identified 11) Exam abnormalities today -Left V1,V2, and V3 decreased sensation to light touch; V2, V3 decreased to temp and pin; + tuning fork - functional symptom -Mild Hip flexor weakness need to rule out cauda equina given back pain and incontinence -Other sensory abnormality discussed above under paresthesias Plan 1) Labs (fasting) 2) NM gastric emptying study locally 3) Audiogram 4) Vestibular therapy 5) MRI lumbar spine 6) Autonomic reflex test 7) Skin biopsy 8) Consults: -ENT for tinnitus, dizziness, aural fullness Current management of orthostatic condition: Conservative Measures: -Increased water intake (2-2.5 liters of water daily) -Increased salt intake (3-5 grams daily) -Compression stockings -Cardiac Rehab / Progressive exercise HPI/Interval History: She is primarily here for complaints regarding dizziness and headaches. Her headaches are essentially unchanged. She has a migraine today. General Examination: BP 123/68 (BP Site: Left Arm, BP Position: Sitting, BP Cuff Size: Regular Adult) Pulse 83 Ht 170.2 cm (5' 7 ) Wt 79.4 kg (175 lb) SpO2 99% BMI 27.41 kg/m She is alone. General: Awake, alert, interactive, no acute distress, good nutritional status, normal development, well-kept Physical examination was done in the presence of a female nurse. Neurological Exam Mental Status Alert, fully oriented, attentive, with normal cognition, memory, speech and affect. Cranial Nerves Extraocular movements normal. No nystagmus, no ptosis, and pupils equal. Face symmetrical. Tongue normal. Motor Examination and Coordination Motor examination with normal bulk, strength and tone. No drift. Normal rapid alternating movements and coordination. No adventitious movements or significant tremor. Reflexes Deep tendon reflexes graded by [facility] Deep Tendon Reflexes Right Left Biceps 2+ 2+ Triceps 2+ 2+ Brachioradialis 2+ 2+ Patellar 2+ 2+ Achilles 2+ 2+ Plantar Downgoing Downgoing Sensation Not examined Gait Casual gait normal. Assessment & Plan 10/14/2022 - General Neurology, Etienne Vinson MD ASSESSMENT One of her concerns is about her MRI scan images. There is a small area of change that was noticed by the patient. I reviewed this with radiology. This is most likely an artifact. I reviewed her CT and CT angiogram. She does not have any aneurysm. She was suggested to have a MR angiogram by her stationary equipment mechanic who thought that she had calcification. There is no evidence of calcification on CTA. She is awaiting tilt table test. She is waiting for her follow-up appointment with headache center. I am not going to change any of her headache medications. She had concerns regarding Bechets disease. There is outside my area of expertise. PLAN I will see her back after her tilt table test and additional studies. Encounter Diagnosis ICD-10-CM 1. Autonomic dysfunction G90.9 2. Orthostatic lightheadedness R42 Return in about 4 months (around 02/14/2023), or if symptoms worsen or fail to improve. Data Review Objective Current Outpatient Medications Medication Sig colchicine 0.6 mg tablet Take 1 tablet by mouth once daily. tetracycline, nystatin, hydrocortisone, diphenhydrAMINE MAGIC MOUTHWASH SUSPENSION 5 mL twice daily as needed. Swish and Swallow as directed. Compounding Instructions: Empty the contents of 3 capsules of Tetracycline HCl 250mg into a 180ml gonsalo bottle. Add 120 ml of Diphenhydramine Elixir 12.5mg/5ml and shake well. Add 0.5ml of Hydrocortisone 12mg/ml Soln. to bottle (breaks up foam). Add 30ml Ora-Sweet. Add 15ml Nystatin 100,000 Unit/ml Susp and shake well. Label bottle Shake well montelukast (SINGULAIR) 10 mg tablet gabapentin (NEURONTIN) 100 mg capsule 300 mg. meclizine (ANTIVERT) 25 mg tab Take 25 mg by mouth. polyethylene glycol 3350 (MIRALAX ORAL) Take by mouth. multivit,thx,calcium,iron,mins (MULTIVITAMIN AND MINERAL ORAL) Take by mouth. Magnesium 250 mg tab Take 500 mg by mouth. ubrogepant (UBRELVY) 100 mg tablet Take 1 tablet by mouth as needed (migraine). Can repeat in 2 hours if needed. No more than 2 doses in 24 hours. naratriptan (AMERGE) 2.5 mg tablet Take 1 tablet by mouth as needed. TAKE ONE(1) TABLET AT THE ONSET OF HEADACHE; IF HEADACHE RETURNS OR DOES NOT FULLY RESOLVE, THE DOSE MAY BE REPEATED AFTER 4 HOURS; DO NOT EXCEED FIVE(5) MG IN 24 HOURS. diclofenac potassium (CATAFLAM) 50 mg tablet 1 tab at onset of headache. May take every 8 hours as needed for pain. Take with food, and no more than 10 days per month. ondansetron (ZOFRAN) 4 mg tablet Take 1 tablet by mouth once daily as needed (for nausea.). DULoxetine (CYMBALTA) 60 mg capsule once daily. pyridoxine, vitamin B6, (VITAMIN B6) 25 mg tablet Take 25 mg by mouth once daily. cyanocobalamin (VITAMIN B-12) 500 mcg tablet Take 500 mcg by mouth once daily. No current facility-administered medications for this visit. ACTIVE PROBLEM LIST Scoliosis of Lumbar Spine Lumbar Herniated Disc Discogenic Low Back Pain Annular Tear of Cervical Disc Bilateral Lumbar Radiculopathy Lumbar Spondylosis PAST MEDICAL HISTORY Diagnosis Date Fibromyalgia IBS (irritable bowel syndrome) Migraines PAST SURGICAL HISTORY Procedure Laterality Date BREAST AUGMENTATION WITH IMPLANT Bilateral Social History Tobacco Use Smoking status: Former Types: Cigarettes Start date: 07/14/2009 Quit date: 10/10/2012 Years since quittin.0 Smokeless tobacco: Never Substance Use Topics Alcohol use: Yes Comment: rarely maybe 1x/month FAMILY HISTORY Problem Relation Age of Onset Fainting Mother Hypertension Father Parkinson s Disease Paternal Grandmother Schizophrenia Half-brother Review of Systems Lab and Test Review: Common Neurology Labs: Last 3 sets of ESR, CRP, CK, Vitamin B12, MMA, Folate, Vitamin D, Copper ESR, WSR Latest Ref Rng & Units 08/02/2022 WSR 0 - 20 mm/hr 8 CRP Latest Ref Rng & Units 08/02/2022 CRP <0.9 mg/dL 0.6 CK Latest Ref Rng & Units 07/14/2022 CK 42 - 196 U/L 53 Vitamin B12 Latest Ref Rng & Units 07/14/2022 VITAMIN B12 232 - 1,245 pg/mL 217(L) MMA Latest Ref Rng & Units 07/14/2022 MMA 79 - 376 nmol/L 190 No flowsheet data found.No flowsheet data found. Copper Latest Ref Rng & Units 07/14/2022 COPPER 80 - 155 ug/dL 122 MRI Head/Brain - Last 2 Impressions No resulted procedures found. CT head perfusion: 1. No perfusion deficit. CT angiogram head: 1. No aneurysm or hemodynamically significant stenosis within the head. CT angiogram neck: by: ISSA SRINIVASAN on [place] Feb 27, 2022 4:18:11 PM EDT Transcribed by: ISSA SRINIVASAN on MonFeb 27, 2022 4:18:11 PM EDT Outside Data/Labs: Subjective Patient-Entered Data: 10/14/22 - GENERAL NEUROLOGY SCORES PROMIS 10 04/23/2022 09/07/2022 In general, would you say your health is: Poor Poor In general, would you say your quality of life is: Poor Poor In general, how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 chronic migraine with aura. This is going on 72 hours. Her home medications have not been able to break the headache. He states it is right sided flank to the right occiput as well as the right frontal sinus. She has had some left-sided deficits states is normal for her. She has some sensitivity to light and sound. Review of Systems: Review of Systems Constitutional: Negative. HENT: Negative. Eyes: Negative. Negative for discharge. Respiratory: Negative. Negative for apnea. Cardiovascular: Negative. Negative for chest pain. Gastrointestinal: Negative. Negative for abdominal distention. Musculoskeletal: Negative. Negative for gait problem. Skin: Negative. Negative for color change. Neurological: Positive for headaches. Negative for facial asymmetry. Psychiatric/Behavioral: Negative. Negative for agitation. All other systems reviewed and are negative. Past Medical History: Past Medical History: Diagnosis Date Cervical dysplasia Depression Past Surgical History: No past surgical history on file. Allergies: Allergies Allergen Reactions Metoclopramide Anxiety, Palpitations and Dyspnea Other reaction(s): Other Anxiety Anxiety Medications: Patient's Medications New Prescriptions No medications on file Previous Medications [id number] 50-325-40 MG PER TABLET Take 1 tablet by mouth every 4 hours as needed for Headaches. MECLIZINE 25 MG TABLET Take 1 tablet by mouth 3 times daily as needed for Nausea / Vomiting. ONDANSETRON (ZOFRAN ODT) 4 MG TAB DISPERSIBLE TABLET Take 1 tablet by mouth every 4 hours as needed for Nausea. SERTRALINE 25 MG TAB take 1 tablet by mouth at bedtime. Modified Medications No medications on file Discontinued Medications No medications on file Family History: History reviewed. No pertinent family history. Social History: Social History Socioeconomic History Marital status: Single Spouse name: Not on file Number of children: Not on file Years of education: Not on file Highest education level: Not on file Occupational History Not on file Tobacco Use Smoking status: Some Days Packs/day: 0.10 Types: Cigarettes Smokeless tobacco: Never Substance and Sexual Activity Alcohol use: Not Currently Drug use: Yes Types: Marijuana Comment: first time 2 months ago Sexual activity: Not on file Other Topics Concern Not on file Social History Narrative Not on file Social Determinants of Health Financial Resource Strain: Not on file Food Insecurity: Not on file Transportation Needs: Not on file Physical Activity: Not on file Stress: Not on file Social Connections: Not on file Intimate Partner Violence: Not on file Housing Stability: Not on file Physical Exam: Physical Exam Vitals and nursing note reviewed. Constitutional: Appearance: Normal appearance. She is not ill-appearing. HENT: Head: Normocephalic. Right Ear: External ear normal. Left Ear: External ear normal. Nose: Nose normal. Mouth/Throat: Mouth: Mucous membranes are moist. Eyes: Pupils: Pupils are equal, round, and reactive to light. Cardiovascular: Rate and Rhythm: Normal rate. Pulmonary: Effort: Pulmonary effort is normal. Abdominal: General: There is no distension. Musculoskeletal: General: Normal range of motion. Cervical back: Normal range of motion. Skin: General: Skin is warm and dry. Capillary Refill: Capillary refill takes less than 2 seconds. Neurological: General: No focal deficit present. Mental Status: She is alert. Psychiatric: Behavior: Behavior normal. Vital Signs During ED Visit Patient Vitals for the past 24 hrs: BP Temp Temp src Pulse Resp SpO2 Height 08/10/22 1247 136/82 -- -- 68 18 96 % -- 08/10/22 1144 -- -- -- -- -- -- 1.702 m (5' 7 ) 08/10/22 1143 130/81 98.3 F (36.8 C) Temporal 88 16 98 % -- Orders/Results: Orders Placed This Encounter Sodium chloride 0.9% IV solution 1,000 mL Ketorolac (TORADOL) injection 15 mg Metoclopramide (REGLAN) injection 10 mg diphenhydrAMINE (BENADRYL) injection 50 mg Prochlorperazine (COMPAZINE) injection 10 mg diphenhydrAMINE (BENADRYL) injection 50 mg Results for orders placed or performed during the hospital encounter of 06/12/22 CBC, EDIF, PLATELET Result Value Ref Range WBC (WHITE BLOOD COUNT) 7.9 3.6 - 11.0 10*3/uL RBC 4.99 4.0 - 5.4 10*6/uL HEMOGLOBIN (HGB) 14.2 12.0 - 16.0 G/DL HEMATOCRIT (HCT) 43.2 36.0 - 48.0 % MEAN CELL VOLUME 86.5 80.0 - 100.0 FL Mean Cell HGB 28.4 26.0 - 35.0 PG MEAN CELL HGB CONCENTRATION 32.9 27.0 - 37.0 G/DL RBC DISTRIBUTION 13.1 11.5 - 14.5 % PLATELET COUNT 352 130.0 - 400.0 10*3/uL MEAN PLATELET VOLUME 8.5 7.4 - 11.0 FL DIFFERENTIAL TYPE AUTO DIFF % NEUTROPHILS 63.2 37.0 - 75.0 % LYMPHOCYTE 29.1 20.0 - 55.0 % MONOCYTE % 5.2 0.0 - 10.0 % EOSINOPHIL % 1.7 0.0 - 11.0 % BASOPHIL % 0.8 0.0 - 2.0 % Absolute Neutrophil Count 5.0 1.4 - 6.5 10*3/uL LYMPHOCYTES, ABSOLUTE 2.3 1.2 - 3.4 10*3/uL MONOCYTES, ABSOLUTE 0.4 0.0 - 0.7 10*3/uL ABSOLUTE EOSINOPHIL COUNT 0.1 0.0 - 0.7 10*3/uL ABSOLUTE BASOPHIL COUNT 0.1 0.0 - 0.2 10*3/uL COMPREHENSIVE METABOLIC PANEL Result Value Ref Range Glucose 86 70 - 100 MG/DL BUN 15 7 - 20 MG/DL CREATININE SERUM 0.70 0.7 - 1.2 MG/DL SODIUM 137 137 - 145 MMOL/L POTASSIUM 4.6 3.5 - 5.1 MMOL/L CHLORIDE 104 98 - 107 MMOL/L CALCIUM 9.4 8.4 - 10.2 MG/DL PROTEIN, TOTAL 7.5 6.3 - 8.2 GM/DL Albumin 4.5 3.5 - 5.0 G/dl BILIRUBIN, TOTAL 0.2 0.2 - 1.3 MG/DL AST 37 (H) 14 - 36 IU/L ALKALINE PHOSPHATASE 79 38 - 126 IU/L CARBON DIOXIDE (CO2) 26 22 - 30 MMOL/L A/G Ratio 1.5 1.3 - 2.2 RATIO ALT 53 (H) <35 IU/L ESTIMATED GFR, NON AMER 103 ml/min/1.73sq.m ESTIMATED GFR, 125 ml/min/1.73sq.m GFR COMMENT Average GFR for 30-39 years old = 107. LIPASE Result Value Ref Range LIPASE 159 23 - 300 U/L URINALYSIS, MACRO Result Value Ref Range COLOR, URINE YELLOW YELLOW APPEARANCE, URINE CLEAR CLEAR Specific [place], Urine 1.015 1.010 - 1.025 PH URINE 7.0 5.0 - 7.0 PROTEIN, URINE NEGATIVE NEGATIVE mg/dl GLUCOSE, URINE NEGATIVE NEGATIVE mg/dl KETONES, URINE NEGATIVE NEGATIVE mg/dl BILIRUBIN, URINE NEGATIVE NEGATIVE BLOOD, URINE DIPSTICK TRACE-LYSED (A) NEGATIVE NITRITES, URINE NEGATIVE NEGATIVE UROBILINOGEN, URINE 0.2 0.2 - 1.0 E.U./dL LEUKOCYTE ESTERASE, URINE NEGATIVE NEGATIVE HCG QUALITATIVE, URINE Result Value Ref Range HCG, QUALITATIVE, URINE NEGATIVE URINE MICROSCOPIC Result Value Ref Range WBC, URINE NEGATIVE NEGATIVE /HPF RBC, URINE 1 TO 5 NEGATIVE /HPF Epithelial Cells UA 1 TO 5 /HPF Mucus NEGATIVE NEGATIVE BACTERIA, URINE NEGATIVE NEGATIVE CRYSTALS, URINE NONE NONE CASTS, URINE NONE NONE /LPF COMMENT, URINE CULTURE CRITERIA NOT MET, NO CULTURE PERFORMED. Radiographic Imaging No orders to display Procedures: Procedures Medications Ordered/Given During ED Visit Medications Metoclopramide (REGLAN) injection 10 mg (10 mg Intravenous Not Given 08/10/22 1225) Prochlorperazine (COMPAZINE) injection 10 mg (has no administration in time range) diphenhydrAMINE (BENADRYL) injection 50 mg (has no administration in time range) Sodium chloride 0.9% IV solution 1,000 mL (1,000 mL Intravenous $$New Bag$$ 08/10/22 1216) Ketorolac (TORADOL) injection 15 mg (15 mg Intravenous Given 08/10/22 1216) diphenhydrAMINE (BENADRYL) injection 50 mg (50 mg Intravenous Given 08/10/22 1215) Medical Decision Making Subjectively patient states she is feeling much better and would like to be discharged home. She has an appointment with her neurologist and she is encouraged to keep it. She states she will. She has plenty of medications at home and offers no other complaints. Patient agrees with plan of care, questions were encouraged and answered. Clinical Impression: 1. Migraine with aura and with status migrainosus, not intractable No follow-ups on file. New Prescriptions No medications on file Discontinued Medications No medications on file An After Visit Summary was printed and given to the patient with above information. Jeison Goldstein, NIK 08/10/22 1339 Associated attestation - Julian Mcghee MD - 08/10/2022 4:32 PM EST Attending note: I was available for consultation regarding this patient. The patient was seen, evaluated and dispositioned by the mid-level provider independently. Pt states she is feeling better and is okay without having more benadryl at this time and is ready to go home, Logan ANGEL notified Notified Logan ANGEL that pt is feeling better at this time, will not administer newly ordered medications at this time, okay per Logan ANGEL, pt denies needs Pt states she is starting to feel better at this time, denies needs, will continue to monitor Pt states she immediately felt effects of medication then headache came back, discussed with Logan ANGEL, would like to encourage pt to wait approx 30 minutes, pt okay with that, encouraged to rest and close eyes to allow medication to work, pt able to rest at this time, water given, denies further needs Pt rang light. Needs to see nurse. Iv alarming. I isaac Hood aware. Pt lying back in bed quietly. Pillow and xtra blanket provided . Call light in reach. Both rails up No other needs mentioned. No family at cart side. Registration currently in pts room, pt okay with this nurse returning to begin medications once complete Logan MANAGER [employer] at bedside Pt c/o migraine for 3 days. Pt has been taking her migraine medications with no relief. documented in this encounter [facility] 08-10-2022 Physician Emergency department Note Emergency Department Report [facility] Service Date:.08/10/22 PCP: Mark Poe Chief Complaint: Chief Complaint Patient presents with Headache HPI Bethanie Dinero is a 32 y.o. female presents to the ED today due to Migraine. Patient has a well-established history of chronic migraine with aura. This is going on 72 hours. Her home medications have not been able to break the headache. He states it is right sided flank to the right occiput as well as the right frontal sinus. She has had some left-sided deficits states is normal for her. She has some sensitivity to light and sound. Review of Systems: Review of Systems Constitutional: Negative. HENT: Negative. Eyes: Negative. Negative for discharge. Respiratory: Negative. Negative for apnea. Cardiovascular: Negative. Negative for chest pain. Gastrointestinal: Negative. Negative for abdominal distention. Musculoskeletal: Negative. Negative for gait problem. Skin: Negative. Negative for color change. Neurological: Positive for headaches. Negative for facial asymmetry. Psychiatric/Behavioral: Negative. Negative for agitation. All other systems reviewed and are negative. Past Medical History: Past Medical History: Diagnosis Date Cervical dysplasia Depression Past Surgical History: No past surgical history on file. Allergies: Allergies Allergen Reactions Metoclopramide Anxiety, Palpitations and Dyspnea Other reaction(s): Other Anxiety Anxiety Medications: Patient's Medications New Prescriptions No medications on file Previous Medications [id number] 50-325-40 MG PER TABLET Take 1 tablet by mouth every 4 hours as needed for Headaches. MECLIZINE 25 MG TABLET Take 1 tablet by mouth 3 times daily as needed for Nausea / Vomiting. ONDANSETRON (ZOFRAN ODT) 4 MG TAB DISPERSIBLE TABLET Take 1 tablet by mouth every 4 hours as needed for Nausea. SERTRALINE 25 MG TAB take 1 tablet by mouth at bedtime. Modified Medications No medications on file Discontinued Medications No medications on file Family History: History reviewed. No pertinent family history. Social History: Social History Socioeconomic History Marital status: Single Spouse name: Not on file Number of children: Not on file Years of education: Not on file Highest education level: Not on file Occupational History Not on file Tobacco Use Smoking status: Some Days Packs/day: 0.10 Types: Cigarettes Smokeless tobacco: Never Substance and Sexual Activity Alcohol use: Not Currently Drug use: Yes Types: Marijuana Comment: first time 2 months ago Sexual activity: Not on file Other Topics Concern Not on file Social History Narrative Not on file Social Determinants of Health Financial Resource Strain: Not on file Food Insecurity: Not on file Transportation Needs: Not on file Physical Activity: Not on file Stress: Not on file Social Connections: Not on file Intimate Partner Violence: Not on file Housing Stability: Not on file Physical Exam: Physical Exam Vitals and nursing note reviewed. Constitutional: Appearance: Normal appearance. She is not ill-appearing. HENT: Head: Normocephalic. Right Ear: External ear normal. Left Ear: External ear normal. Nose: Nose normal. Mouth/Throat: Mouth: Mucous membranes are moist. Eyes: Pupils: Pupils are equal, round, and reactive to light. Cardiovascular: Rate and Rhythm: Normal rate. Pulmonary: Effort: Pulmonary effort is normal. Abdominal: General: There is no distension. Musculoskeletal: General: Normal range of motion. Cervical back: Normal range of motion. Skin: General: Skin is warm and dry. Capillary Refill: Capillary refill takes less than 2 seconds. Neurological: General: No focal deficit present. Mental Status: She is alert. Psychiatric: Behavior: Behavior normal. Vital Signs During ED Visit Patient Vitals for the past 24 hrs: BP Temp Temp src Pulse Resp SpO2 Height 08/10/22 1247 136/82 -- -- 68 18 96 % -- 08/10/22 1144 -- -- -- -- -- -- 1.702 m (5' 7 ) 08/10/22 1143 130/81 98.3 F (36.8 C) Temporal 88 16 98 % -- Orders/Results: Orders Placed This Encounter Sodium chloride 0.9% IV solution 1,000 mL Ketorolac (TORADOL) injection 15 mg Metoclopramide (REGLAN) injection 10 mg diphenhydrAMINE (BENADRYL) injection 50 mg Prochlorperazine (COMPAZINE) injection 10 mg diphenhydrAMINE (BENADRYL) injection 50 mg Results for orders placed or performed during the hospital encounter of 06/12/22 CBC, EDIF, PLATELET Result Value Ref Range WBC (WHITE BLOOD COUNT) 7.9 3.6 - 11.0 10*3/uL RBC 4.99 4.0 - 5.4 10*6/uL HEMOGLOBIN (HGB) 14.2 12.0 - 16.0 G/DL HEMATOCRIT (HCT) 43.2 36.0 - 48.0 % MEAN CELL VOLUME 86.5 80.0 - 100.0 FL Mean Cell HGB 28.4 26.0 - 35.0 PG MEAN CELL HGB CONCENTRATION 32.9 27.0 - 37.0 G/DL RBC DISTRIBUTION 13.1 11.5 - 14.5 % PLATELET COUNT 352 130.0 - 400.0 10*3/uL MEAN PLATELET VOLUME 8.5 7.4 - 11.0 FL DIFFERENTIAL TYPE AUTO DIFF % NEUTROPHILS 63.2 37.0 - 75.0 % LYMPHOCYTE 29.1 20.0 - 55.0 % MONOCYTE % 5.2 0.0 - 10.0 % EOSINOPHIL % 1.7 0.0 - 11.0 % BASOPHIL % 0.8 0.0 - 2.0 % Absolute Neutrophil Count 5.0 1.4 - 6.5 10*3/uL LYMPHOCYTES, ABSOLUTE 2.3 1.2 - 3.4 10*3/uL MONOCYTES, ABSOLUTE 0.4 0.0 - 0.7 10*3/uL ABSOLUTE EOSINOPHIL COUNT 0.1 0.0 - 0.7 10*3/uL ABSOLUTE BASOPHIL COUNT 0.1 0.0 - 0.2 10*3/uL COMPREHENSIVE METABOLIC PANEL Result Value Ref Range Glucose 86 70 - 100 MG/DL BUN 15 7 - 20 MG/DL CREATININE SERUM 0.70 0.7 - 1.2 MG/DL SODIUM 137 137 - 145 MMOL/L POTASSIUM 4.6 3.5 - 5.1 MMOL/L CHLORIDE 104 98 - 107 MMOL/L CALCIUM 9.4 8.4 - 10.2 MG/DL PROTEIN, TOTAL 7.5 6.3 - 8.2 GM/DL Albumin 4.5 3.5 - 5.0 G/dl BILIRUBIN, TOTAL 0.2 0.2 - 1.3 MG/DL AST 37 (H) 14 - 36 IU/L ALKALINE PHOSPHATASE 79 38 - 126 IU/L CARBON DIOXIDE (CO2) 26 22 - 30 MMOL/L A/G Ratio 1.5 1.3 - 2.2 RATIO ALT 53 (H) <35 IU/L ESTIMATED GFR, NON AMER 103 ml/min/1.73sq.m ESTIMATED GFR, 125 ml/min/1.73sq.m GFR COMMENT Average GFR for 30-39 years old = 107. LIPASE Result Value Ref Range LIPASE 159 23 - 300 U/L URINALYSIS, MACRO Result Value Ref Range COLOR, URINE YELLOW YELLOW APPEARANCE, URINE CLEAR CLEAR Specific [place], Urine 1.015 1.010 - 1.025 PH URINE 7.0 5.0 - 7.0 PROTEIN, URINE NEGATIVE NEGATIVE mg/dl GLUCOSE, URINE NEGATIVE NEGATIVE mg/dl KETONES, URINE NEGATIVE NEGATIVE mg/dl BILIRUBIN, URINE NEGATIVE NEGATIVE BLOOD, URINE DIPSTICK TRACE-LYSED (A) NEGATIVE NITRITES, URINE NEGATIVE NEGATIVE UROBILINOGEN, URINE 0.2 0.2 - 1.0 E.U./dL LEUKOCYTE ESTERASE, URINE NEGATIVE NEGATIVE HCG QUALITATIVE, URINE Result Value Ref Range HCG, QUALITATIVE, URINE NEGATIVE URINE MICROSCOPIC Result Value Ref Range WBC, URINE NEGATIVE NEGATIVE /HPF RBC, URINE 1 TO 5 NEGATIVE /HPF Epithelial Cells UA 1 TO 5 /HPF Mucus NEGATIVE NEGATIVE BACTERIA, URINE NEGATIVE NEGATIVE CRYSTALS, URINE NONE NONE CASTS, URINE NONE NONE /LPF COMMENT, URINE CULTURE CRITERIA NOT MET, NO CULTURE PERFORMED. Radiographic Imaging No orders to display Procedures: Procedures Medications Ordered/Given During ED Visit Medications Metoclopramide (REGLAN) injection 10 mg (10 mg Intravenous Not Given 08/10/22 1225) Prochlorperazine (COMPAZINE) injection 10 mg (has no administration in time range) diphenhydrAMINE (BENADRYL) injection 50 mg (has no administration in time range) Sodium chloride 0.9% IV solution 1,000 mL (1,000 mL Intravenous $$New Bag$$ 08/10/22 1216) Ketorolac (TORADOL) injection 15 mg (15 mg Intravenous Given 08/10/22 1216) diphenhydrAMINE (BENADRYL) injection 50 mg (50 mg Intravenous Given 08/10/22 1215) Medical Decision Making Subjectively patient states she is feeling much better and would like to be discharged home. She has an appointment with her neurologist and she is encouraged to keep it. She states she will. She has plenty of medications at home and offers no other complaints. Patient agrees with plan of care, questions were encouraged and answered. Clinical Impression: 1. Migraine with aura and with status migrainosus, not intractable No follow-ups on file. New Prescriptions No medications on file Discontinued Medications No medications on file An After Visit Summary was printed and given to the patient with above information. Jeison Goldstein CNP 08/10/22 1334 Associated attestation - Julian Mcghee MD - 08/10/2022 4:32 PM EST Attending note: I was available for consultation regarding this patient. The patient was seen, evaluated and dispositioned by the mid-level provider independently. [facility] Work Phone: 08-10-2022 Emergency department Note Pt states she is feeling better and is okay without having more benadryl at this time and is ready to go home, Logan ANGEL notified [facility] 08-10-2022 Emergency department Note Notified Logan MANAGER [employer] that pt is feeling better at this time, will not administer newly ordered medications at this time, okay per Logan ANGEL, pt denies needs [facility] 08-10-2022 Emergency department Note Pt states she is starting to feel better at this time, denies needs, will continue to monitor [facility] 08-10-2022 Emergency department Note Pt states she immediately felt effects of medication then headache came back, discussed with Logan ANGEL, would like to encourage pt to wait approx 30 minutes, pt okay with that, encouraged to rest and close eyes to allow medication to work, pt able to rest at this time, water given, denies further needs [facility] 08-10-2022 Emergency department Note Pt rang light. Needs to see nurse. Iv alarming. I isaac Hood aware. [facility] 08-10-2022 Emergency department Note Pt lying back in bed quietly. Pillow and xtra blanket provided . Call light in reach. Both rails up No other needs mentioned. No family at cart side. [facility] Emergency department Note Registration currently in pts room, pt okay with this nurse returning to begin medications once complete [facility] 08-10-2022 Emergency department Note Logan ANGEL at bedside [facility] 08-10-2022 Emergency department Note Pt c/o migraine for 3 days. Pt has been taking her migraine medications with no relief. [facility] 08-09-2022 Miscellaneous Notes See my notes Pt voicing concern over hx of positive MAXWELL. Reporting 5 sm blisters , 1 episode of bloody nose, and difficulty eating d/t mouth sores. Robaxin is somewhat helping body pain. States has seen providers for 1 yr that have not addressed her concerns for autoimmune. Does not feel previous lab abnormalities have been addressed (hematuria, low VitD, mean platelet, ALT, AST, ect...) Concerned she has lupus. Well send labs. Photos attached. Colleen Weeks RN documented in this encounter [facility] 08-05-2022 History of Present illness Narrative Images from the original note were not included. Subjective Patient ID: Bethanie Dinero is a 32 y.o. female. HPI Pt presents today to discuss years worth of lab work. States she has gone to so many specialists she feels like she is being pushed back and forth without finding a true cause to her current issues. Complains of severe fatigue, generalized body pain, muscle aches, joint pain, joint stiffness. States she feels like someone has picked her up, went to a large top of the stairs and literrally threw her body down it . 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 Pt feels that she has long-term issues from this deficiency. Pt is just concerned that she has something going on that is being missed. Review of Systems Constitutional: Positive for activity change, appetite change and fatigue. Negative for chills, diaphoresis and fever. HENT: Negative for congestion and sore throat. Eyes: Negative for visual disturbance. Respiratory: Negative for cough, chest tightness, shortness of breath and wheezing. Cardiovascular: Positive for palpitations. Negative for chest pain and leg swelling. Gastrointestinal: Positive for abdominal pain, constipation, nausea and vomiting. Negative for blood in stool and diarrhea. Endocrine: Negative for cold intolerance and heat intolerance. Genitourinary: Negative for difficulty urinating. Musculoskeletal: Positive for arthralgias, back pain, gait problem, joint swelling, myalgias, neck pain and neck stiffness. Skin: Negative for pallor and rash. Neurological: Positive for dizziness and headaches. Negative for weakness, light-headedness and numbness. Hematological: Negative for adenopathy. Psychiatric/Behavioral: Positive for sleep disturbance. Negative for suicidal ideas. The patient is nervous/anxious. Objective Physical Exam Vitals and nursing note reviewed. Constitutional: Appearance: Normal appearance. She is not diaphoretic. HENT: Head: Normocephalic and atraumatic. Neck: Vascular: No carotid bruit. Comments: Thyroid palpable without nodules, mobile with swallowing Cardiovascular: Rate and Rhythm: Normal rate and regular rhythm. Pulses: Normal pulses. Heart sounds: Normal heart sounds. No murmur heard. No gallop. Pulmonary: Effort: Pulmonary effort is normal. No respiratory distress. Breath sounds: Normal breath sounds. No stridor. No wheezing or rhonchi. Abdominal: General: Bowel sounds are normal. There is no distension. Palpations: Abdomen is soft. There is no mass. Tenderness: There is abdominal tenderness. There is no right CVA tenderness, left CVA tenderness, guarding or rebound. Hernia: No hernia is present. Musculoskeletal: General: No swelling. Normal range of motion. Cervical back: Normal range of motion. No tenderness. Right lower leg: No edema. Left lower leg: No edema. Lymphadenopathy: Cervical: No cervical adenopathy. Skin: General: Skin is warm and dry. Capillary Refill: Capillary refill takes less than 2 seconds. Coloration: Skin is not pale. Findings: No lesion or rash. Neurological: General: No focal deficit present. Mental Status: She is alert and oriented to person, place, and time. Gait: Gait normal. Deep Tendon Reflexes: Reflexes normal. Psychiatric: Mood and Affect: Mood normal. Behavior: Behavior normal. Thought Content: Thought content normal. Judgment: Judgment normal. Assessment/Plan: Diagnoses and all orders for this visit: Other chronic pain - Ambulatory referral to Rheumatology; Future Elevated LFTs - CT Abdomen Pelvis Without Contrast; Future Chronic LLQ pain - CT Abdomen Pelvis Without Contrast; Future Discussed with pt that most of her labs have come back normal, but will send her to Dr Alaniz for further management in hopes that he may have some answers and more testing he can complete. Will get imaging of abdomen since it has been awhile since she had a imaging of abdomen to look at her LLQ pain and due to her minimally elevated LFT. Pt to follow back up after she sees rheum documented in this encounter [facility] 08-05-2022 Miscellaneous Notes Will ask KJ if she will review outside labs when he returns. Colleen Weeks RN documented in this encounter [facility] 08-04-2022 Instructions Raul Truong DO - 08/04/2022 4:05 PM EST -We do feel that your difficulties sleeping may be primarily a chronic insomnia, predominantly sleep maintenance as opposed to the typical sleep-onset type -The primary treatment for this is Cognitive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 weight change. Negative for activity change, appetite change, chills, diaphoresis and fever. HENT: Negative for congestion, rhinorrhea, sinus pressure, sinus pain and sore throat. Eyes: Negative for visual disturbance. Respiratory: Negative for cough, chest tightness, shortness of breath and wheezing. Cardiovascular: Negative for chest pain, palpitations and leg swelling. Gastrointestinal: Positive for abdominal pain, nausea and vomiting. Negative for constipation and diarrhea. Endocrine: Negative for cold intolerance and heat intolerance. Genitourinary: Negative for difficulty urinating. Musculoskeletal: Positive for arthralgias and myalgias. Skin: Negative for pallor and rash. Neurological: Positive for weakness and headaches. Negative for dizziness, light-headedness and numbness. Hematological: Negative for adenopathy. Psychiatric/Behavioral: Positive for sleep disturbance. Negative for suicidal ideas. The patient is nervous/anxious. Objective Physical Exam Vitals and nursing note reviewed. Constitutional: Appearance: Normal appearance. She is not diaphoretic. HENT: Head: Normocephalic and atraumatic. Nose: Nose normal. No congestion or rhinorrhea. Mouth/Throat: Mouth: Mucous membranes are moist. Pharynx: Oropharynx is clear. No oropharyngeal exudate or posterior oropharyngeal erythema. Comments: No obstruction from tonsils Eyes: General: Right eye: No discharge. Left eye: No discharge. Neck: Vascular: No carotid bruit. Comments: Thyroid palpable without nodules, mobile with swallowing Cardiovascular: Rate and Rhythm: Normal rate and regular rhythm. Pulses: Normal pulses. Heart sounds: Normal heart sounds. No murmur heard. No gallop. Pulmonary: Effort: Pulmonary effort is normal. No respiratory distress. Breath sounds: Normal breath sounds. No stridor. No wheezing or rhonchi. Abdominal: General: Bowel sounds are normal. There is no distension. Palpations: Abdomen is soft. There is no mass. Tenderness: There is no abdominal tenderness. There is no guarding or rebound. Hernia: No hernia is present. Musculoskeletal: General: No swelling. Normal range of motion. Cervical back: Normal range of motion. No tenderness. Right lower leg: No edema. Left lower leg: No edema. Lymphadenopathy: Cervical: No cervical adenopathy. Skin: General: Skin is warm and dry. Capillary Refill: Capillary refill takes less than 2 seconds. Coloration: Skin is not pale. Findings: No lesion or rash. Neurological: General: No focal deficit present. Mental Status: She is alert and oriented to person, place, and time. Gait: Gait normal. Deep Tendon Reflexes: Reflexes normal. Psychiatric: Mood and Affect: Mood normal. Behavior: Behavior normal. Thought Content: Thought content normal. Judgment: Judgment normal. Assessment/Plan: Diagnoses and all orders for this visit: Food intolerance - Ambulatory referral to Allergy; Future Cyclic vomiting syndrome - Ambulatory referral to Allergy; Future B12 deficiency - Vitamin B12; Future Vitamin B6 deficiency - Vitamin B6; Future Will recheck her b12 to see if it is has improved since administering injection. Pt requesting to get b6 repeated, as this was also low in the past but not repeated. Discussed with pt I do think it is best for her to get EGD tomorrow to help us see if she is having gastric issues which is causing her the inability to absorb her vitamins. Also placed referral to allergy to see if they could help figure out what is causing her significant food intolerances. Discussed if EGD is normal, plan to stop protonix, as PPI can inhibit vitamin absorption. Pt to follow up after seeing specialists. documented in this encounter [facility] 07-25-2022 Miscellaneous Notes Medical records received from Gastro Office. Scanned documents into patient chart for review. documented in this encounter [facility] 07-20-2022 History of Present illness Narrative Images from the original note were not included. Subjective Patient ID: Bethanie iDnero is a 32 y.o. female. HPI Pt presents today to establish care. Pt follows with neurology, two separate providers, Dr Kelvin Knott at [facility].. States she has low b12 despite oral intake. Her provider told her she needed b12 injections but needed to be managed by PCP. She just moved here from [place] so is switching to us for primary care. B12 on 07/14 was 217 despite oral b12 intake. Review of Systems Constitutional: Positive for appetite change and fatigue. Negative for activity change, chills, diaphoresis and fever. HENT: Negative for congestion, postnasal drip, rhinorrhea, sinus pressure, sinus pain and sore throat. Eyes: Negative for visual disturbance. Respiratory: Negative for cough, chest tightness, shortness of breath and wheezing. Cardiovascular: Positive for palpitations and leg swelling. Negative for chest pain. Gastrointestinal: Positive for constipation, nausea and vomiting. Negative for abdominal pain and diarrhea. Cyclic vomiting Endocrine: Negative for cold intolerance and heat intolerance. Genitourinary: Negative for difficulty urinating. Incontinence Musculoskeletal: Positive for arthralgias and myalgias. Skin: Positive for rash. Negative for pallor. Neurological: Positive for dizziness, numbness and headaches. Negative for weakness and light-headedness. Hematological: Negative for adenopathy. Psychiatric/Behavioral: Positive for sleep disturbance. Negative for suicidal ideas. The patient is nervous/anxious. Objective Physical Exam Vitals and nursing note reviewed. Constitutional: Appearance: Normal appearance. She is not diaphoretic. HENT: Head: Normocephalic and atraumatic. Right Ear: Tympanic membrane, ear canal and external ear normal. There is no impacted cerumen. Left Ear: Tympanic membrane, ear canal and external ear normal. There is no impacted cerumen. Nose: Nose normal. No congestion or rhinorrhea. Mouth/Throat: Mouth: Mucous membranes are moist. Pharynx: Oropharynx is clear. No oropharyngeal exudate or posterior oropharyngeal erythema. Eyes: General: Right eye: No discharge. Left eye: No discharge. Conjunctiva/sclera: Conjunctivae normal. Pupils: Pupils are equal, round, and reactive to light. Neck: Vascular: No carotid bruit. Cardiovascular: Rate and Rhythm: Normal rate and regular rhythm. Pulses: Normal pulses. Heart sounds: Normal heart sounds. No murmur heard. No gallop. Pulmonary: Effort: Pulmonary effort is normal. No respiratory distress. Breath sounds: Normal breath sounds. No stridor. No wheezing or rhonchi. Abdominal: General: Bowel sounds are normal. There is no distension. Palpations: Abdomen is soft. There is no mass. Tenderness: There is no abdominal tenderness. Hernia: No hernia is present. Musculoskeletal: General: No swelling. Normal range of motion. Cervical back: Normal range of motion. No tenderness. Right lower leg: No edema. Left lower leg: No edema. Lymphadenopathy: Cervical: No cervical adenopathy. Skin: General: Skin is warm and dry. Capillary Refill: Capillary refill takes less than 2 seconds. Coloration: Skin is not pale. Findings: No lesion or rash. Neurological: General: No focal deficit present. Mental Status: She is alert and oriented to person, place, and time. Gait: Gait normal. Deep Tendon Reflexes: Reflexes normal. Psychiatric: Mood and Affect: Mood normal. Behavior: Behavior normal. Thought Content: Thought content normal. Judgment: Judgment normal. Assessment/Plan: Diagnoses and all orders for this visit: Low vitamin B12 level - cyanocobalamin (B-12) injection 1,000 mcg Discussed with pt we can give monthly b12 injections. Do not take oral b12 with injections. Follow up prn documented in this encounter [facility] 07-18-2022 Miscellaneous Notes Advised patient that all other labs are normal so no concerns. Kelvin addressed low vitamin B12 levels in another message. Grisel Kasper RN documented in this encounter [facility] 07-18-2022 History of Present illness Narrative Sleep Study Check-In Documentation Date: July 18, 2022 Name: Bethanie Dinero Patient was accompanied by Self. Location: [place] Latex allergy: No Tape allergy: No Current medications were reviewed with the patient:Yes Sleep aid taken by patient for the sleep study: Orestes of sleep aid: Not Applicable Procedure was explained to the patient and all questions were answered. PAP treatment discussed and shown to patient: Yes If PAP used enter mask info: n/a Chin Sharp Used No Knowledge Program (KP): KP was not completed in epic by patient and accepted Study type: PSG Adverse Event: No (If yes create a new abstract) SERS Event: No Comments: Patient was advised to follow up with their ordering provider regarding test results Claudia Nash documented in this encounter [facility] 07-08-2022 Telephone encounter Note ----- Message from Apryl García sent at 07/08/2022 12:29 PM EST ----- Regarding: refill MEDICATION REFILL REQUEST: PCP: Harish Garza DO Patient called 07/08/22 and is requesting a medication refill for DULoxetine (CYMBALTA) 60 MG capsule ++ would like her last refill of this medication [facility] a [facility] see [facility]++ This was confirmed from the current medication list found in the patients chart. Supply Requested: # of days: 30 days Method of receiving: Send to pharmacy Last set of flowsheet rows for OARRS report: OARRS/NARxCHECK Report Received and Assessed: No data found Date controlled substance agreement signed: No data found Date of last drug screen: No data found Functional Assessment: No data found Will this refill be sent to the preferred pharmacy listed below? No, only for this refill. Please send to - [facility] [address] [facility] [place] [address] [place] [phone] Preferred pharmacies: Pt Call Back Number Work Phone Not on file. Patient call back message sent to the primary care clinical [place]. Apryl García [facility] 07-08-2022 Miscellaneous Notes ----- Message from Apryl García sent at 07/08/2022 12:29 PM EST ----- Regarding: refill MEDICATION REFILL REQUEST: PCP: Harish Garza DO Patient called 07/08/22 and is requesting a medication refill for DULoxetine (CYMBALTA) 60 MG capsule ++ would like her last refill of this medication [facility]++ This was confirmed from the current medication list found in the patients chart. Supply Requested: # of days: 30 days Method of receiving: Send to pharmacy Last set of flowsheet rows for OARRS report: OARRS/NARxCHECK Report Received and Assessed: No data found Date controlled substance agreement signed: No data found Date of last drug screen: No data found Functional Assessment: No data found Will this refill be sent to the preferred pharmacy listed below? No, only for this refill. Please send to - [facility] [address] [place] [address] [phone] Preferred pharmacies: Pt Call Back Number Work Phone Not on file. Patient call back message sent to the primary care clinical pool. Apryl García documented in this encounter [facility] 07-01-2022 History of Present illness Narrative Images from the original note were not included. [facility] General Neurology New Patient Evaluation Chief Complaint/Issues: Bethanie Dinero is a 32 year old right-handed female seen in the [facility] for General Neurology for: New patient Multiple complaints HPI: Consult placed by Dr. Vinson, seen 06/15/2021: She has multiple symptoms. I'll arrange for a formal evaluation through autonomic nervous system dysfunction clinic. I gave her detailed instructions on nonpharmacological management of orthostatic hypotension. Seen initially 04/25/2022: This a patient with history consistent with migraine. She has had chronic headaches since childhood associated with photophobia and occasionally lightheadedness. She has never had any preventive medications for migraine. She has history of episodic confusion, lightheadedness and episodes of falling. It is possible that she has orthostatic hypotension. This in combination with her GI symptoms suggest that she may have autonomic nervous system dysfunction. She has bilateral her hand and palm tingling as well as burning in her feet. It is possible that she has small fiber neuropathy. She has had a previous EMG and other studies that were essentially unremarkable. She has unexplained B6 deficiency. She is getting a GI work-up soon. She'll contact me if she has any difficulty in arranging this since would like to have this done in [place]. Today we discuss her symptoms: She has her daughter with her today. 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) -Looking up can trigger -Rolling in bed can trigger +Tinnitus bilateral +Ears feel stuffy, feels need to clean ears -Denies hearing loss 2) Lightheadedness -When standing -Often feels close to fainting -Has low blood pressure; 90s over 50s mmHg can be typical for her +Tachycardia with this 3) Digestive issues -Vacillating constipation and diarrhea -Has vomiting 2 x daily in the last few weeks, typically 4-5 hours after eating -Food looks undigested -Sometimes has urinary leakage and anal leakage with heavy vomiting episodes -Can have incomplete bowel emptying +Saddle paresthesia, feels less sensation in rectum +Shooting pain in legs +Leg weakness after sitting 4) Numbness and tingling -Feels like less sensation on the L side of body -Legs feel like she has melchor bite -Uses hot bath to soothe sensation -She ran out of her B12 supplement 5) Tremor -L arm and hand more so -Shaky when standing; feels jumpy 6) Decreased taste -Only in the center of her tongue 7) Sleep disturbance -Sleep issues since childhood -Trouble falling asleep -Feels aware while dreaming / not fully asleep -She has upcoming sleep study -Can have some dream enactment behavior -Had a sleep hallucination around juan, saw a floating head 8) Muscle locking -2nd and 3rd digit of the hands -Some trouble with coordination of hands and dropping items -R>L -Numbness from palm radiating to fingers, better since starting Cymbalta -Can have locking of the foot / toes as well 9) Migraines Headache Description Onset: Childhood, would have to lay down at school and miss school Total headache days per month: 7 - 10 per month Duration of attacks: 2-3 days Severity of headaches? Moderate - severe Onset to Peak: within 30 minutes Location: begins R retro-orbital radiates to back of head. Aura: before headache [place], can have some R eye visual loss rarely for 10 minutes or less Prodrome: high blood pressure Accompanying symptoms: photophobia, phonophobia, nausea, vomiting. Quality:sharp, throbbing, aching , pressure, and squeezing. Worse with activity: No Triggers: Smells, period, stress, sleep. Cough/sneeze/valsalva as trigger: No Positional changes: No -Has not started rizatriptan yet 10) Transient speech deficit and weakness -Event in December / January, where she was unable to move her legs, was unable to speak -Speech deficit lasted 2 hours -Able to wiggle toes after 2-3 hours -Was admitted to hospital, stroke / TIA was ruled out PM PAST MEDICAL HISTORY Diagnosis Date Fibromyalgia IBS (irritable bowel syndrome) Migraines PAST SURGICAL HISTORY Procedure Laterality Date BREAST AUGMENTATION WITH IMPLANT Bilateral ALLERGIES Allergen Reactions Metoclopramide Shortness of Breath, Other: See Comments Anxiety Social History Tobacco Use Smoking status: Former Types: Cigarettes Start date: 07/14/2009 Quit date: 10/10/2012 Years since quittin.7 Smokeless tobacco: Never Substance Use Topics Alcohol use: Yes Comment: rarely FAMILY HISTORY Problem Relation Age of Onset Fainting Mother Hypertension Father Parkinson s Disease Paternal Grandmother Schizophrenia Half-brother ROS Review of Systems See below. Medications Current Outpatient Medications on File Prior to Visit Medication Sig rizatriptan (MAXALT) 10 mg tablet Take 1 tablet by mouth as needed. May repeat in 2 hours if needed. No more than 2 tablets in 24 hours. diclofenac potassium (CATAFLAM) 50 mg tablet 1 tab at onset of headache. May take every 8 hours as needed for pain. Take with food, and no more than 10 days per month. ondansetron (ZOFRAN) 4 mg tablet Take 1 tablet by mouth once daily as needed (for nausea.). ondansetron orally disintegrating (ZOFRAN ODT) 4 mg disintegrating tablet Take 4 mg by mouth every 4 hours as needed. DULoxetine (CYMBALTA) 60 mg capsule once daily. pyridoxine, vitamin B6, (VITAMIN B6) 25 mg tablet Take 25 mg by mouth once daily. cyanocobalamin (VITAMIN B-12) 500 mcg tablet Take 500 mcg by mouth once daily. No current facility-administered medications on file prior to visit. Relevant Current Medications: Rizatriptan PRN Diclofenac PRN Duloxetine 60 mg daily B6, B12 Medications tried previously (failed): Sumatriptan - neck pain Relevant Work Up To Date Labs CMP AST 37 (H) ALT 53 (H) Copper, vit D WNL CBC WNL Hgb A1C WNL B1 WNL MUSK Ab WNL Paraneoplastic Ab WNL Vitamin B-6 5 - 50 mcg/L 3 Low Ref Range & Units 4 mo ago B12 232 - 1245 pg/mL 257 Ref Range & Units 4 mo ago TSH 0.27 - 4.2 mcIU/mL 1.15 General Examination: BP 127/60 Pulse 85 Ht 170.2 cm (5' 7 ) Wt 80.3 kg (177 lb) SpO2 96% BMI 27.72 kg/m 07/01/22 0957 07/01/22 1039 07/01/22 1040 BP: 127/60 Orthostatic BP: 117/64 114/67 BP Position: Supine Standing Pulse: 85 Orthostatic Pulse: 77 107 SpO2: 96% Weight: 80.3 kg (177 lb) Height: 170.2 cm (5' 7 ) Neurological Examination: Cognition The patient is alert and oriented times four. Lucid and organized in conversation. Able to provide detailed medical hx. Speech Speech is Normal in fluency, volume, and clarity. No dysarthria. Content and syntax are coherent. Comprehension: Able to follow several step commands. Cranial Nerves PERRLA No ptosis. Visual perrin are full to confrontation. Extraocular movements are intact. Smooth saccades and pursuits. No nystagmus. Facial motor exam is strong and symmetric. V1,V2, and V3 decreased sensation to light touch L Decreased temp and pinprick L V2, V3 +Tuning fork sign Soft palate elevation is symmetric, tongue is in midline, no tongue fasciculation. Neck range of motion is full. Trapezius Strength is symmetric, graded 5/5. Tone and Bulk Tone and bulk is normal and preserved bilaterally of arms. Tone and bulk is normal and preserved bilaterally of legs. No apparent muscle atrophy. No pes cavus or hammer toes. Strength Right Left Shoulder Abduction 5/5 5/5 Elbow Flexion 5/5 5/5 Elbow Extension 5/5 5/5 Wrist Flexion 5/5 5/5 Wrist Extension 5/5 5/5 Finger Extension 5/5 5/5 Finger Flexion 5/5 5/5 Finger Abduction 5/5 5/5 Hip Flexion 4+/5 5/5 Hip Adduction 5/5 5/5 Hip Abduction 5/5 5/5 Knee Flexion 5/5 5/5 Knee Extension 5/5 5/5 Ankle Dorsiflexion 5/5 5/5 Ankle Plantarflexion 5/5 5/5 Movement/Coordination Finger-to- nose-finger intact bilaterally. No evidence of ataxia arms. No limb dysmetria of arms and legs. No tremors. No extrapyramidal findings or dystonia. Sensation Decreased pinprick sensation mid forearm to fingers L, mid calf to toes L Decreased temperature sensaiton L foot only Intact to light touch, pinprick, and temperature sensation at toes and fingers, bilaterally. Normal proprioception (toe position and thumb). Normal finger vibration and toe vibration. Reflexes Right Left Bicep 2+/4 2+/4 Tricep 2+/4 2+/4 Brachioradialis 2+/4 2+/4 Patella 2+/4 2+/4 Ankle 2+/4 2+/4 No Clonus. Negative Babinski (toes curl down). Perez sign not present. Gait Able to stand without upper body assistance. Normal station and stride. No festination or retropulsion. Good arm swing and body turn. Normal toe, heel, and tandem walk. Romberg's sign is negative. Assessment & Plan 07/01/2022 - General Neurology, Kelvin Shelton, SHAY.RN CARDIOLOGY ASSESSMENT Bethanie Dinero is a 32 year old here today for initial evaluation. Bethanie Dinero has a has a past medical history of Fibromyalgia, IBS (irritable bowel syndrome), and Migraines. This is a complex case and we discuss many symptoms today. 1) Dizziness -Room spinning sensation -Triggers: head turns and rolling in bed -Daily to multiple per day, up to 20 min -Likely BPPV +Tinnitus and aural fullness, need to rule our Meniere's or other etiology -Consult to ENT and audiogram 2) Lightheadedness -Hypotension at baseline, normal BP today +Tachycardia on standing -Likely POTS -Autonomic reflex with tilt 3) GI symptoms -Vacillating constipation and diarrhea -Vomiting undigested food 4-5 hours after meals -Sometimes loss of urine when vomiting -Seeing GI locally who told her she may have gastroparesis -Has upcoming gastric emptying locally -Given vitamin deficiencies need to check for celiac -Incomplete fecal emptying / smearing -Need to rule out cauda equina 4) Paresthesias -B12 deficient -Asymmetric small fiber distribution L fingers to forearm, L toes to mid calf -Change from Dr. Vinson's exam in April -Skin biopsy for small fiber -Possible celiac etiology -Other labs if positive biopsy 5) Tremulousness -Will check labs -Essential tremor 6) Decreased taste -Mid tongue -Likely secondary to B12 deficiency 7) Sleep abnormalities -Since childhood, recent changes -Upcoming sleep study -Trouble falling and staying asleep -Some dream enactment -Some hallucinations at night 8) Muscle locking -2nd and third digit intermittent locking sensation -Not ulnar no numbness or claw -Can feel foot locking as well -Maybe dupuytren's contracture, but no palpable knot in palms -Will check cramp labs 9) Headaches -7-10 per month -Migraine with aura -Has tried sumatriptan without benefit, not yet tried sumatriptan 10) Transient speech deficit and weakness -Single episode in December with local work up -No TIA or stroke identified 11) Exam abnormalities today -Left V1,V2, and V3 decreased sensation to light touch; V2, V3 decreased to temp and pin; + tuning fork - functional symptom -Mild Hip flexor weakness need to rule out cauda equina given back pain and incontinence -Other sensory abnormality discussed above under paresthesias PLAN 1) Labs (fasting) 2) NM gastric emptying study locally 3) Audiogram 4) Vestibular therapy 5) MRI lumbar spine 6) Autonomic reflex test 7) Skin biopsy 8) Consults: -ENT for tinnitus, dizziness, aural fullness Current management of orthostatic condition: Conservative Measures: -Increased water intake (2-2.5 liters of water daily) -Increased salt intake (3-5 grams daily) -Compression stockings -Cardiac Rehab / Progressive exercise Return After work up. My impression and recommendations were discussed at length with the patient (and family members, if present). The patient and family (if present) voiced understanding to my recommendations. All questions were answered. Medication side effects discussed as applicable. The patient was provided with a detailed after visit summary highlighting my impression and recommendations. I spent a total of 70 minutes on the date of the service which included preparing to see the patient, [id number] patient care, completing clinical documentation, obtaining and/or reviewing separately obtained history, performing a medically appropriate examination, counseling and educating the patient/family/caregiver, and ordering medications, tests, or procedures. Kelvin Shelton APRN.[facility] General Neurology [address] [place]. [address] Appointment: [phone] CONSULT: Consultation requested by Dr. Vinson for an opinion regarding autonomic dysfunction. My final recommendations will be communicated back to the requesting physician by way of shared Medical record or letter to requesting physician via US mail. During our face to face clinical encounter we discussed my concerns neurologically in terms of diagnosis, impact on health and activities of living, and addressed questions. I tried to reassure the patient and also address questions. I explained to the patient to call if any questions, to review results, and I want to see them return for neurological follow up as mychart as next steps of communication is agreed upon Patient verbalizes understanding and I have addressed concerns and questions at this visit Patient has my contacts, educational material provided, and my chart sign up. After visit summary discussed. 1. This office note has been dictated and may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 or near accidents due to drowsy drivin [place] Sleepiness Scale 05/24/2022 Score 14 (present daytime sleepiness) PROMIS CAT Sleep Disturbance 05/24/2022 PROMIS Sleep Disturbance T-Score 63 (moderate) Insomnia Severity Index 05/24/2022 Score 24 Restless Leg Syndrome 05/24/2022 Score 27 PHQ-9 04/24/2022 05/24/2022 Score 6 19 PROMIS Global Health - (T-Scores - the mean of general population = 50. Five points is a clinically meaningful difference.) 04/23/2022 Physical T-Score 34.9 Mental T-Score 33.8 PAST TREATMENTS: None PRIOR SLEEP STUDIES: None OTHER RELEVANT LABS AND STUDIES: None PAST MEDICAL HISTORY Diagnosis Date Fibromyalgia IBS (irritable bowel syndrome) Migraines PAST SURGICAL HISTORY Procedure Laterality Date BREAST AUGMENTATION WITH IMPLANT Bilateral There is no problem list on file for this patient. Allergies As of Date: 05/26/2022 Allergen Noted Reaction METOCLOPRAMIDE 02/21/2022 Shortness of Breath and Other: See Comments Fully Assessed 04/25/2022 CURRENT MEDICATIONS: DULoxetine (CYMBALTA) 60 mg capsule once daily. SUMAtriptan (IMITREX) 100 mg tablet Take 100 mg by mouth twice daily as needed. pyridoxine, vitamin B6, (VITAMIN B6) 25 mg tablet Take 25 mg by mouth once daily. cyanocobalamin (VITAMIN B-12) 500 mcg tablet Take 500 mcg by mouth once daily. Review of Systems Constitutional: Positive for fatigue. Negative for fever and night sweats. HENT: Negative for congestion, hearing loss and trouble swallowing. Respiratory: Negative for cough and difficulty breathing. Cardiovascular: Positive for palpitations. Negative for chest pain. Gastrointestinal: Negative for abdominal pain. Genitourinary: Negative for nocturia. Musculoskeletal: Positive for uncomfortable leg sensations. Neurological: Positive for headaches and memory loss. Negative for seizures. All other systems reviewed and are negative. SOCIAL HISTORY: Social History Tobacco Use Smoking status: Former Types: Cigarettes Start date: 07/14/2009 Quit date: 10/10/2012 Years since quittin.6 Smokeless tobacco: Never Substance Use Topics Alcohol use: Yes Comment: rarely FAMILY HISTORY: FAMILY HISTORY Problem Relation Age of Onset Fainting Mother Hypertension Father Parkinson s Disease Paternal Grandmother Schizophrenia Half-brother There is no family history of sleep disorders. PHYSICAL EXAMINATION: Vital Signs: BP 127/82 (BP Site: Right Arm, BP Position: Sitting, BP Cuff Size: Regular Adult) Pulse 101 Resp 16 Ht 170.2 cm (5' 7.01 ) Wt 79.4 kg (175 lb) SpO2 97% BMI 27.40 kg/m PHYSICAL EXAM: General appearance: Well-appearing, no acute distress Mental status: A&O x4, pleasant, cooperative Skin: No rashes or lesions Eyes: EOMI, PERRL ENT : Nasal congestion absent, Nasal valve incompetence absent. Posterior airspace: Rucker tongue position 4, retrognathia absent. Overbite absent. High arched palate present. Tongue scalloping/ridging present. Uvula: Nonedematous Chest: Regular S1 and S2, Lungs clear to auscultation Abdomen: Nondistended Extremities: No edema noted NEUROLOGICAL EXAM: General: Awake, alert, speech fluent, comprehension, naming, repetition intact. Short and long-term memory intact. CN: PERRL, EOMI without nystagmus, facial sensation and strength are normal and symmetric, hearing is intact to conversational tone, palate and tongue movements are intact and symmetric. Motor: Normal tone, bulk and strength bilaterally. Sensation: LT intact throughout. Gait: Able to walk without difficulty. Stance normal. IMPRESSION/PLAN: G47.10 Excessive sleepiness (primary encounter diagnosis) R06.83 Snoring Z72.821 Poor sleep hygiene G25.81 RLS (restless legs syndrome) F51.04 Chronic insomnia G47.50 Parasomnia, unspecified type Ms. Dinero is a 32-year-old female with PMH migraine, possible small fiber neuropathy, IBS, fibromyalgia presenting for multiple sleep complaints. These include difficulty falling asleep, difficulty staying asleep with frequent nighttime awakenings, sleepwalking and dream enactment behavior, and waking up choking/gasping; in addition, she does endorse significant daytime fatigue and sleepiness. The cause of her difficulty falling asleep is somewhat difficult to differentiate between quite poor sleep hygiene versus a chronic insomnia, although aspects of her history point to both, and I suspect a combination of the 2. She does sound to have both non-REM and REM parasomnias, as outlined above. Interestingly, these in addition to her excessive daytime sleepiness and waking up choking/gasping do raise significant concern for a sleep disordered breathing as the primary cause of the majority of her symptoms. - Given her reported nighttime activity that sound consistent with both non-REM and REM parasomnias, I will order an in lab Polysomnogram (PSG) with additional leads per RBD montage to evaluate for obstructive sleep apnea. -As stated, suspect that if sleep apnea is present, that this is the cause of these parasomnias (namely, sleepwalking and pseudo-RBD) - Discussed with the patient the possible diagnosis, causes, and conditions associated with obstructive sleep apnea. - Cautioned that she should avoid driving when drowsy. - Encouraged healthy lifestyle with adequate sleep ( 7-9 hours per night), diet and exercise; sleep hygiene tips were provided and discussed today - Given the suspicion for at least some degree of a chronic insomnia, I will also place a referral for behavioral sleep medicine for cognitive behavioral therapy for insomnia (CBT-I). I also provided information regarding sleep restriction and stimulus control therapy in the interim if she wishes to trial these ahead of the appointment itself. - Her leg discomfort does sound more porsha to a small fiber neuropathy than a true restless legs, however the apparent circadian and positional component do raise this as a possibility. Indeed, if she does have ASHANTI, this could be exacerbating these symptoms. In the meantime, I will order iron studies to rule out a reversible cause of these symptoms, if present. - With regards to her sleep hygiene, 1 component of this does sound to be difficulties with sleep training her [id number] daughter following a period of illness on the patient's part where the daughter was brought into her bedroom for ease of caring for the child. Information was provided regarding strategies for coping with sleep onset association insomnia/sleep training should the patient need it. - She is to follow-up 2-3 weeks following completion of sleep study. This may be a virtual appointment. Discussed case with attending physician (Dr. Bravo) Electronically Signed by: Raul Truong DO Sleep Medicine Fellow 05/26/22 [facility] STAFF PHYSICIAN NOTE OF PERSONAL INVOLVEMENT IN CARE I have reviewed the history and physical examination obtained and documented by the fellow and I personally participated in the daley components. I have discussed the case and management of the patient's care. Revisions to the above note are included as needed. Shira Bravo MD, MS documented in this encounter [facility] 05-02-2022 Evaluation + Plan note Associated Problem(s): Paresthesias Improved on duloxetine, particularly since increasing dose to 60 mg last month. Duloxetine 60 mg every day FU 2-3 months Continue follow up with neurology as well as any referrals by neurology [facility] 05-02-2022 Miscellaneous Notes Associated Problem(s): Paresthesias Improved on duloxetine, particularly since increasing dose to 60 mg last month. Duloxetine 60 mg every day FU 2-3 months Continue follow up with neurology as well as any referrals by neurology documented in this encounter [facility] 05-02-2022 History of Present illness Narrative FEI Dinero is a 31 y.o. female here today for follow up. Started on duloxetine 30 ng on 03/30/2022 and increased to 60 mg 04/21/2022. Doing well with this dose. Still with occasional numbness in feet at night. Neurologist at [facility] opines the patient has autonomic nervous system dysfunction. Has neurology follow up in 3 months. The neurologist has referred patient to a migraine specialist. Patient has always had sleep disturbance her whole life. Can wake up gasping or wake up thinking she is somewhere else or lucid dreams/nightmares. Has been checking pulse ox and pulse in middle of night and this has been normal. Patient states her prior neurologist referred her to sleep medicine but I never heard from them. Patient Active Problem List Diagnosis Preop examination Abdominal cramping affecting Anxiety in , antepartum Vertigo 26 weeks gestation of Asthma affecting , antepartum Herpes simplex type 2 (HSV-2) infection affecting , antepartum History of LEEP (loop electrosurgical excision procedure) of cervix complicating Abnormal [place] glucose challenge test, antepartum Abdominal pain during in third trimester 33 weeks gestation of Annual physical exam Elevated hematocrit Migraine with aura and without status migrainosus, not intractable Visual disturbance Fatigue Dizziness Stroke-like symptoms Encounter for screening examination for mental health and behavioral disorders Loose stools Paresthesias Past Surgical History: Procedure Laterality Date denies LEEP TUMOR EXCISION left pinky finger-per records Family History Problem Relation Age of Onset No Known Problems Mother No Known Problems Father Social History Socioeconomic History Marital status: Single Number of children: 1 Years of education: 12+ Highest education level: Associate degree: occupational, technical, or vocational program Tobacco Use Smoking status: Former Smokeless tobacco: Never Vaping Use Vaping Use: Never used Substance and Sexual Activity Alcohol use: Not Currently Comment: rare Drug use: No Sexual activity: Not Currently Partners: Male control/protection: None Social Determinants of Health Financial Resource Strain: Low Risk Difficulty of Paying Living Expenses: Not hard at all Food Insecurity: No Food Insecurity Worried About Running Out of Food in the Last Year: Never true Ran Out of Food in the Last Year: Never true Transportation Needs: No Transportation Needs Lack of Transportation (Medical): No Lack of Transportation (Non-Medical): No Physical Activity: Inactive Days of Exercise per Week: 0 days Minutes of Exercise per Session: 0 min Stress: No Stress Concern Present Feeling of Stress : Only a little Social Connections: Moderately Integrated Frequency of Communication with Friends and Family: More than three times a week Frequency of Social Gatherings with Friends and Family: Once a week Attends Hinduism Services: 1 to 4 times per year Active Member of Clubs or Organizations: No Attends Club or Organization Meetings: 1 to 4 times per year Marital Status: Never Housing Stability: Low Risk Unable to Pay for Housing in the Last Year: No Number of Places Lived in the Last Year: 1 Unstable Housing in the Last Year: No Current Outpatient Medications Medication Sig Dispense Refill SUMAtriptan (IMITREX) 100 MG tablet Take 1 (one) tablet (100 mg total) by mouth every 2 (two) hours as needed for migraine Max of 200 mg in 24hrs . 15 tablet 3 cyanocobalamin (B-12) 500 MCG tablet Take 1 (one) tablet (500 mcg total) by mouth daily Start: 03/01/22. 30 tablet 0 DULoxetine (CYMBALTA) 60 MG capsule Take 1 (one) capsule (60 mg total) by mouth daily . 30 capsule 2 pyridoxine, vitamin B6, (B-6) 25 MG tablet Take 1 (one) tablet (25 mg total) by mouth daily Start: 03/01/22. 30 tablet 0 traZODone (DESYREL) 50 MG tablet Take 1 (one) tablet (50 mg total) by mouth nightly as needed for sleep . (Patient not taking: No sig reported) 30 tablet 0 No current facility-administered medications for this visit. Allergies: Metoclopramide hcl Review of Systems Neurological: Positive for dizziness, light-headedness, numbness and headaches. BP 122/81 (BP Location: Right arm, Patient Position: Sitting, BP Cuff Size: X-large Adult) Pulse 78 Temp 98.3 F (36.8 C) (Temporal) Ht 5' 7 Wt 80.3 kg (177 lb) LMP 04/12/2022 (Approximate) SpO2 97% BMI 27.72 kg/m Physical Exam Vitals and nursing note reviewed. Constitutional: Appearance: Normal appearance. Neurological: General: No focal deficit present. Mental Status: She is alert and oriented to person, place, and time. Psychiatric: Attention and Perception: Attention normal. Mood and Affect: Mood normal. Speech: Speech normal. Behavior: Behavior normal. Thought Content: Thought content normal. Assessment/Plan Paresthesias Improved on duloxetine, particularly since increasing dose to 60 mg last month. Duloxetine 60 mg every day FU 2-3 months Continue follow up with neurology as well as any referrals by neurology No orders of the defined types were placed in this encounter. documented in this encounter [facility] 04-27-2022 Miscellaneous Notes Reports new BP monitor revealed bp of 86/71, HR 114 during episode of facial tingling and pressure, and feeling faint while standing. Will purchase recommended compression stockings and see if it helps. Colleen Weeks RN documented in this encounter [facility] 04-26-2022 Miscellaneous Notes Pt last seen yesterday (04/25) wanted to make KJ aware, has had tinnitus and lightheadedness x2 days. Dizziness duration longer. Colleen Weeks RN documented in this encounter [facility] 04-25-2022 Instructions Etienne Vinson MD - 04/25/2022 8:23 AM EST Please get me a copy of the actual images on a CD of her MRI scan. I need a paper copy of the EMG report with all the tables and images. documented in this encounter [facility] 04-25-2022 History of Present illness Narrative Summary: Multiple neurological complaints Images from the original note were not included. [facility] New Patient Evaluation Consulting Provider: SELF Individuals who were included in, or assisted with the encounter were: Jordaniker Vinson MD Patient's cousin Eve Chief Complaint/Issues: Bethanie Dinero is a 31 year old female seen in the [facility] for: This a patient with history of multiple neurological symptoms. HPI: Patient says that she has had health issues since she was a child he is 67. She had history of chronic migraine and had episodes of lightheadedness and intermittent diarrhea. She continues to have chronic migraines. She also had nightmares which was never treated. She continues to have chronic migraines. She has history of fatigue. She has to lie down when she becomes tired and weak. She feels disconnected particularly when she is standing. She has episodes when she feels as if she'll fall in the floor pills . She had two falls. She also has word finding and stuttering episodes. She has episodes when her hands and feet will tingle. This has been going on for 3 to 4 months. She hasn't numbness of the right foot and feels cold for 4 months. Now both feet feel cold and painful. She has symptoms in both palms recently. Past medical history: She had a seizure-like event at age 17. She is currently on Cymbalta and sumatriptan. Social history: She does not smoke or drink alcohol. She lives in [place]. She previously lived in an area where there was a cancer cluster. She has two children who are healthy. 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 She lives alone. Review of systems: She has had irregular heartbeats during the time that she was . She still has occasional racing heartbeats. Her blood pressure fluctuates and was up to one thirties. She feels shaky at times . She wakes up confused at night. She continues to have diarrhea constipation intermittently and back pain. Her cousin notes that she has tremor in her hands more at night. She has had a spell where she could not speak or move. She was taken to the emergency room and it was felt that this was functional neurological disorder. She has had tingling of her hands and feet for the last 3 to 4 months. General Examination: BP 127/75 Pulse 105 Ht 170.2 cm (5' 7 ) Wt 77.1 kg (170 lb) SpO2 100% BMI 26.63 kg/m She is accompanied Eve Elizalde Cousin.. General: Awake, alert, interactive, no acute distress, good nutritional status, normal development, well-kept Neurological Exam Mental Status Alert, fully oriented, attentive, with normal cognition, memory, speech and affect. Cranial Nerves Visual perrin intact. Fundi with normal discs and vasculature. Pupils reactive. Extraocular movements conjugate and full. No ptosis. No nystagmus. Facial sensation intact. Face symmetric and strong. Palate and tongue normal. XI normal. Motor Examination and Coordination Motor examination with normal bulk, strength and tone. No drift. Normal rapid alternating movements and coordination. No adventitious movements or significant tremor. Reflexes Deep tendon reflexes graded by MRC Deep Tendon Reflexes Right Left Biceps 2+ 2+ Triceps 2+ 2+ Brachioradialis 2+ 2+ Patellar 2+ 2+ Achilles 2+ 2+ Plantar Downgoing Downgoing Sensation Sensory examination showed minimal decrease distally to vibration and pain sensation as well as temperature. Vibration is decreased up to the mid calf pain and temperature sensation is decreased in the feet. In the hands there is minimal decreased to pain sensation distally in her up to the knuckles Gait Arises easily. Casual gait, tandem, and Romberg are normal. Can rise on heels and toes. Assessment & Plan 04/25/2022 - General Neurology, Etienne Vinson MD ASSESSMENT This a patient with history consistent with migraine. She has had chronic headaches since childhood associated with photophobia and occasionally lightheadedness. She has never had any preventive medications for migraine. She has history of episodic confusion, lightheadedness and episodes of falling. It is possible that she has orthostatic hypotension. This in combination with her GI symptoms suggest that she may have autonomic nervous system dysfunction. She has bilateral her hand and palm tingling as well as burning in her feet. It is possible that she has small fiber neuropathy. She has had a previous EMG and other studies that were essentially unremarkable. She has unexplained B6 deficiency. She is getting a GI work-up soon. She'll contact me if she has any difficulty in arranging this since would like to have this done in [place]. PLAN She has had extensive lab studies done. The studies are unremarkable. This includes extensive studies including paraneoplastic panel that was essentially unremarkable and she has had a very comprehensive and thorough work-up of her symptoms. I do not feel that we need to repeat any of these imaging studies or labs. I thought she could try pressure stockings and see if she feels better. If she does not feel better and continues to have symptoms of near syncope then we'll arrange for tilt table test and autonomic nervous system evaluation. She may have small fiber neuropathy. We discussed the general limitations of evaluation of small fiber neuropathy. I told her that the diagnostic study would be a skin biopsy but that any specific intervention would be limited. I'm going to refer her to headache center for further management of her migraine. I would like to see her back in 3 months or earlier if needed. Encounter Diagnosis ICD-10-CM 1. Intractable migraine with aura without status migrainosus G43.119 CONSULT TO HEADACHE CLINIC 2. Small fiber neuropathy G62.9 COMPRESSION STOCKINGS 3. Essential tremor G25.0 4. Orthostatic dizziness R42 COMPRESSION STOCKINGS Return in about 3 months (around 07/26/2022), or if symptoms worsen or fail to improve. Data Review Objective Current Outpatient Medications Medication Sig DULoxetine (CYMBALTA) 60 mg capsule once daily. SUMAtriptan (IMITREX) 100 mg tablet Take 100 mg by mouth twice daily as needed. pyridoxine, vitamin B6, (VITAMIN B6) 25 mg tablet Take 25 mg by mouth once daily. cyanocobalamin (VITAMIN B-12) 500 mcg tablet Take 500 mcg by mouth once daily. No current facility-administered medications for this visit. There is no problem list on file for this patient. No past medical history on file. No past surgical history on file. Social History Tobacco Use Smoking status: Former Types: Cigarettes Start date: 07/14/2009 Quit date: 10/10/2012 Years since quittin.5 Smokeless tobacco: Never Substance Use Topics Alcohol use: Yes Comment: rarely No family history on file. Review of Systems Lab and Test Review: Common Neurology Labs: Last 3 sets of ESR, CRP, CK, Vitamin B12, MMA, Folate, Vitamin D, Copper No flowsheet data found.No flowsheet data found.No flowsheet data found.No flowsheet data found.No flowsheet data found.No flowsheet data found.No flowsheet data found.No flowsheet data found. Previous imaging studies today including a CT angiogram MRI scan of the brain, MRI scan of the cervical spine, EEG, EMG, CT scan of the lumbar thoracic spine and cervical spine in 2017 were all normal. I do not see any imaging studies of the cervical or thoracic spine with MRI. Outside Data/Labs: Her previous lab studies include serum copper levels are normal at 126 vitamin B1 levels are normal. B6 levels are low. Paraneoplastic antibodies were negative. MuSK antibody was negative. Myasthenia gravis studies were negative. Hepatitis C antibody and IHSAN screen was negative. Methylmalonic acid Lyme disease titer vitamin A levels HIV and hepatitis B studies were negative. ORACIO levels were negative. CRP was negative. Vitamin D TSH and electrophoresis levels are normal. Routine chemistries were essentially unremarkable other than for minimally elevated calcium. Subjective Patient-Entered Data: 04/25/22 - PHQ-2 Score: 0 PHQ-9 Score: 6 GENERAL NEUROLOGY SCORES PROMIS 10 04/23/2022 In general, would you say your health is: Poor In general, would you say your quality of life is: Poor In general, how would you rate your physical health? Poor In general, how would you rate your mental health, including your mood and your ability to think? Fair In general, how would you rate your satisfaction with your social activities and relationships? Fair To what extent are you able to carry out your everyday physical activities such as walking, climbing stairs, carrying groceries, or moving a chair? Moderately In general, please rate how well you carry out your usual social activities and roles. (This includes activities at home, at work and in your community, and responsibilities as a parent, child, spouse, employee, friend, etc.) Fair How would you rate your pain on average? 6 How would you rate your fatigue on average? Moderate How often have you been bothered by emotional problems such as feeling anxious, depressed or irritable? Sometimes PROMIS Adult Short Form-Global Health Score (Physical) 34.9 (Poor) PROMIS Adult Short Form-Global Health Score (Mental) 33.8 (Fair) Depression Screening 04/24/2022 PHQ-2 Score 0 PHQ-9 Score 6 EVA-2 Total Score 2 EVA-7 Total Score 4 SLEEP APNEA SCORE 04/23/2022 Probability of moderate-severe sleep apnea (%) SAPS V2 2 (Sleep study not recommended) No flowsheet data found. No flowsheet data found. I spent a total of 60 minutes on the date of the service which included preparing to see the patient, [id number] patient care, completing clinical documentation, obtaining and/or reviewing separately obtained history, performing a medically appropriate examination, counseling and educating the patient/family/caregiver, ordering medications, tests, or procedures, and communicating with other HCPs (not separately reported). Etienne Vinson MD Summary This is a normal 65 minute sleep deprived EEG obtained during the awake and asleep state. There are no interictal epileptiform discharges and no seizures seen but this does not rule out a potential diagnosis of epilepsy. Clinical correlation is recommended. ASSESSMENT/PLAN: 31F w/hx of migraine w/aura presents with worsening headaches, visual symptoms, recent onset of severe vertigo, left sided paresthesias, and extreme fatigue. Neuro exam notable for decreased left sided sensation. CTA h/n unremarkable. 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 Also consider underlying systemic dysfunction, such as nutritional deficiencies. -labs -MRI brain w/and w/o contrast -xray cervical spine -recommend ophtho eval sheri -continue headache hygiene discussed including: avoid caffeine, drink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 unspecified back pain laterality- Primary Abnormal involuntary movement Abnormal involuntary movements documented in this encounter [facility] note* Diagnosis Spinal stenosis of cervical region Spinal stenosis in cervical region documented in this encounter [facility] note* Diagnosis Hyperreflexia Abnormal reflex Weakness Other malaise and fatigue B12 deficiency Other B-complex deficiencies documented in this encounter [facility] note* Diagnosis Palpitations- Primary Racing heart beat Tachycardia, unspecified documented in this encounter [facility] note* Diagnosis Abdominal pain, unspecified abdominal location Pelvic pain Adenomyosis Endometriosis of uterus documented in this encounter [facility] note* Diagnosis Constipation, unspecified constipation type- Primary Vomiting without nausea, unspecified vomiting type Gastroparesis Abnormal voice Voice and resonance disorder, unspecified documented in this encounter [facility] note* Diagnosis Dysphonia- Primary Multiple neurological symptoms Other symptoms involving nervous and musculoskeletal systems Dysphagia, unspecified type documented in this encounter [facility] note* Diagnosis Chronic migraine without aura, intractable, without status migrainosus- Primary Migraine with aura and without status migrainosus, not intractable Migraine with aura, without mention of intractable migraine without mention of status migrainosus [facility]* Diagnosis Palpitations- Primary documented in this encounter [facility] note* Diagnosis Chronic back pain, unspecified back location, unspecified back pain laterality Abnormality of gait documented in this encounter [facility] note* Diagnosis B12 deficiency- Primary Other B-complex deficiencies Paresthesia of skin Disturbance of skin sensation Hypotension, unspecified hypotension type Labile blood pressure Elevated blood pressure reading without diagnosis of hypertension Vasovagal syncope Syncope and collapse Bradycardia Other specified cardiac dysrhythmias Muscle cramp Cramp of limb Disorder of the autonomic nervous system, unspecified documented in this encounter [facility] note* Diagnosis Labile blood pressure- Primary Elevated blood pressure reading without diagnosis of hypertension POTS (postural orthostatic tachycardia syndrome) Tachycardia, unspecified Transient autonomic symptoms Other symptoms involving nervous and musculoskeletal systems documented in this encounter [facility] note* Diagnosis Labile blood pressure- Primary Elevated blood pressure reading without diagnosis of hypertension POTS (postural orthostatic tachycardia syndrome) Tachycardia, unspecified Transient autonomic symptoms Other symptoms involving nervous and musculoskeletal systems [facility]* Diagnosis Cold sore- Primary Herpes simplex without mention of complication [facility]* Diagnosis APPOINTMENT CANCELLED- Primary [facility]* Diagnosis Aphthous ulcer of mouth- Primary Oral aphthae documented [facility]* Diagnosis Low serum cortisol level- Primary Glucocorticoid deficiency [facility]* Diagnosis APPOINTMENT CANCELLED- Primary [facility]* Diagnosis Generalized anxiety disorder- Primary PTSD (post-traumatic stress disorder) Posttraumatic stress disorder Chronic migraine without aura, intractable, without status migrainosus- Primary [facility]* Diagnosis Lumbar spondylosis- Primary Lumbosacral spondylosis without myelopathy Vitamin B12 deficiency Other B-complex deficiencies Chronic migraine without aura, intractable, without status migrainosus- Primary [facility]* Diagnosis Excessive sleepiness- Primary Hypersomnia, unspecified Parasomnia, unspecified type Hypersomnia Hypersomnia, unspecified Chronic insomnia Insomnia, unspecified Sleep paralysis Sleep related movement disorder, unspecified RLS (restless legs syndrome) Restless legs syndrome (RLS) Chronic migraine without aura, intractable, without status migrainosus- Primary [facility]* Diagnosis Chronic migraine without aura, intractable, without status migrainosus- Primary [facility]* Diagnosis Weakness- Primary Other malaise and fatigue Fasciculations Abnormal involuntary movements Abnormal involuntary movement Abnormal involuntary movements Blepharospasm [facility]* Diagnosis Behcet's syndrome (HCC)- Primary Behcet's syndrome [facility]* Diagnosis Labile blood pressure- Primary Elevated blood pressure reading without diagnosis of hypertension Hypotension, unspecified hypotension type [facility]* Diagnosis Neurogenic bladder- Primary Neurogenic bladder, NOS [facility]* Diagnosis Lumbar spondylosis- Primary Lumbosacral spondylosis without myelopathy S/P WHIT (total abdominal hysterectomy) Acquired absence of both cervix and uterus [facility] Diagnosis Labile blood pressure- Primary Elevated blood pressure reading without diagnosis of hypertension [facility]* Diagnosis Palpitations- Primary Transient autonomic symptoms Other symptoms involving nervous and musculoskeletal systems [facility]* Diagnosis Paresthesia of skin- Primary Disturbance of skin sensation documented [facility]* Diagnosis Chronic migraine without aura, intractable, without status migrainosus documented [facility] this [facility]* Diagnosis Recurrent aphthous stomatitis Oral aphthae [facility]* Diagnosis Low back pain with bilateral sciatica, unspecified back pain laterality, unspecified chronicity- Primary Abnormality of gait [facility]* Diagnosis Voiding dysfunction- Primary Unspecified disorder of urethra and urinary tract Fibromyalgia Mylagia and myositis, unspecified Bilateral lumbar radiculopathy Multiple neurological symptoms Other symptoms involving nervous and musculoskeletal systems Transient autonomic symptoms Other symptoms involving nervous and musculoskeletal systems [facility]* Diagnosis Labile blood pressure- Primary Elevated blood pressure reading without diagnosis of hypertension [facility]* Diagnosis Screening for genitourinary condition Screening for other and unspecified genitourinary condition [facility] Diagnosis Dry skin dermatitis- Primary Contact dermatitis and other eczema due to other specified agent [facility]* Diagnosis No-show for appointment- Primary documented [facility]* Diagnosis Recurrent aphthous stomatitis- Primary Oral aphthae Genital lesion, female Other specified disorders of female genital organs Fibromyalgia Mylagia and myositis, unspecified [facility]* Diagnosis Low back pain with bilateral sciatica, unspecified back pain laterality, unspecified chronicity- Primary Abnormality of gait Chronic back pain, unspecified back location, unspecified back pain laterality [facility]* Diagnosis Chronic back pain, unspecified back location, unspecified back pain laterality- Primary Abnormality of gait 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 [facility]* Diagnosis Low serum cortisol level- Primary Glucocorticoid deficiency [facility] Diagnosis Rash- Primary Rash and other nonspecific skin eruption [facility]* Instructions* Sophie Chino, RN - 11/18/[address] Luz Marina Alejandre [facility] [address] Shante Truong [facility] [address] [facility] [address] [place] ACTIVITY LIMITATIONS: ( x )Up and about as desired and tolerated ( )Up to bathroom only ( )Lay on either side ( )Avoid heavy lifting or exercise ( )No sex ( )No nipple stimulation ( )Complet bedrest ( )Avoid using stairs ( )Increase fluids DRINK AT LEAST eight-8oz. Glasses of water daily. Call your Doctor if: ( )Contractions are every 5 minutes apart (from start of one to the start of the next contraction) lasting 60 seconds for at least 1 hour, strong enough you can not walk or talk through the contraction and regular. ( )Bag of water breaks ( )Vaginal bleeding ( )Unusual pain occurs ( )Decreased movement ( ) labor: If you have 4 contractions in an hour Keep your scheduled follow up appointment. IN CASE OF EMERGENCY CONTACT LABOR AND DELIVERY . [email or web address] Work Phone: Hospital Discharge instructions* Instructions* Pastora Garcia, QUYNH - 11/20/[address] Luz Marina Alejandre [facility] [address] Shante Truong [facility] [address] [facility] [address] [place] [address] Shante Law [facility] [address] [facility] [phone] Geraldine Lambert, MSN, NUTTER UP, CNM [facility] [address] [facility] [address] [address] [facility] [id number] Jaja Adame [facility] [address] [place] [address] [place] [address] Shiela Chacko [facility] [address] [place] [address] [phone] ACTIVITY LIMITATIONS: ( x )Up and about as desired and tolerated ( )Up to bathroom only ( )Lay on either side ( )Avoid heavy lifting or exercise ( )No sex ( )No nipple stimulation ( )Complet bedrest ( )Avoid using stairs ( x )Increase fluids DRINK AT LEAST eight-8oz. Glasses of water daily. Call your Doctor if: (x )Contractions are every 5 minutes apart (from start of one to the start of the next contraction)lasting 60 seconds for at least 1 hour, strong enough you can not walk or talk through the contraction and regular. ( x )Bag of water breaks (x )Vaginal bleeding ( x)Unusual pain occurs ( x)Decreased movement ( ) labor: If you have 4 contractions in an hour Keep your scheduled follow up appointment. IN CASE OF EMERGENCY CONTACT LABOR AND DELIVERY . [facility] [email or web address] Work Phone: Hospital Discharge instructions* Attachments The following attachments cannot be sent through Care Everywhere. * Migraine Headache: Recurring (Surinamese) documented in this encounterWilson Health SystemInstructions* Attachments The following attachments cannot be sent through Care Everywhere. * Vitamin B12 Deficiency (Surinamese) documented in this encounterOhioHealthReason for referral (narrative)* Diagnostic Procedure Only (Routine) - Pending Review Specialty Diagnoses / Procedures Referred By Huan andrews Referred To Contact [facility] Diagnoses Excessive sleepiness Parasomnia, unspecified type Hypersomnia Sleep paralysis Procedures MULTIPLE SLEEP LATENCY TEST CAMPUS DIRECTOR SLEEP LATENCY/MAINT OF WAKEFULNESS TSTG Shira France MD [address] [place] [address] [facility] [place] [address] [place] [address] Referral ID Status Reason Start Date Expiration Date Visits Requested Visits Authorized [id number] Pending Review Auto-Generat ed Referral 08/04/2022 08/04/2023 1 1 [facility] for referral (narrative)* Diagnostic Procedure Only (Routine) - Pending Review Specialty Diagnoses / Procedures Referred By Contac t Referred To Contact XR IMAGING Diagnoses Scoliosis of lumbar spine, unspecified scoliosis type Lumbar herniated disc Degeneration of lumbar intervertebral disc Annular tear of cervical disc Discogenic low back pain Bilateral lumbar radiculopathy Lumbar spondylosis Procedures XR SCOLIOSIS PA STAND/LAT 2V RADEX ENTIR THRC LMBR CRV SAC SPI W/SKULL 2/3 VW Jeremy Madrid MD [address] [place] [address] Phone: Xr Imaging Referral ID Status Reason Start Date Expiration Date Visits Requested Visits Authorized [id number] Pending Review Auto-Generat ed Referral 10/04/2022 11/03/2023 1 1 * Physical Therapy (Routine) - Pending Review Specialty Diagnoses / Procedures Referred By Contac t Referred To Contact [facility] Diagnoses Scoliosis of lumbar spine, unspecified scoliosis type Lumbar herniated disc Degeneration of lumbar intervertebral disc Annular tear of cervical disc Discogenic low back pain Bilateral lumbar radiculopathy Lumbar spondylosis Procedures CONSULT TO PHYSICAL THERAPY PHYSICAL THERAPY EVALUATION HIGH COMPLEX 45 MINS Jeremy Madrid MD [address] [place] [address] Phone: [facility] [place] [address] [place] [address] Referral ID Status Reason Start Date Expiration Date Visits Requested Visits Authorized [id number] Pending Review Auto-Generat ed Referral 10/04/2022 10/04/2023 1 1 [facility] for referral (narrative)* Diagnostic Procedure Only (Routine) - Closed Specialty Diagnoses / Procedures Referred By Contac t Referred To Contact XR IMAGING Diagnoses Scoliosis of lumbar spine, unspecified scoliosis type Lumbar herniated disc Degeneration of lumbar intervertebral disc Annular tear of cervical disc Discogenic low back pain Bilateral lumbar radiculopathy Lumbar spondylosis Procedures XR SCOLIOSIS PA STAND/LAT 2V RADEX ENTIR THRC LMBR CRV SAC SPI W/SKULL 2/3 VW Jeremy Madrid MD [address] [place] [id number] Xr Imaging Referral ID Status Reason Start Date Expiration Date V isits Requested Visits Authorized [id number] Closed Auto-Generate d Referral 10/04/2022 11/03/2023 1 1 [facility] for referral (narrative)* Diagnostic Procedure Only (Routine) - Authorized Specialty Diagnoses / Procedures Referred By Contac t Referred To Contact [facility] Diagnoses Excessive sleepiness Parasomnia, unspecified type Hypersomnia Sleep paralysis Procedures MULTIPLE SLEEP LATENCY TEST CAMPUS DIRECTOR SLEEP LATENCY/MAINT OF WAKEFULNESS TSTG Kelvin Pratt APRN.CNP [address] [place] [address] [place] [address] Referral ID Status Reason Start Date Expiration Date Visits Requested Visits Authorized [id number] Authorized Auto-Generat ed Referral 09/19/2023 09/18/2024 1 1 [facility] for referral (narrative)* Diagnostic Procedure Only (Routine) - Pending Review Specialty Diagnoses / Procedures Referred By Contac t Referred To Contact US IMAGING Diagnoses Voiding dysfunction Procedures US KIDNEY/BLADDER US RETROPERITONEAL REAL TIME W/IMAGE COMPLETE Issa Henriquez MD [address] [phone] [facility] [place] [address] Referral ID Status Reason Start Date Expiration Date Visits Requested Visits Authorized [id number] Pending Review Auto-Generat ed Referral 10/31/2023 11/22/2024 1 1 * Outpatient Procedure (Routine) - Pending Review Specialty Diagnoses / Procedures Referred By Contac t Referred To Contact [facility] Diagnoses Voiding dysfunction Procedures FLUROURODYNAMICS WITH EMG EMG STDS ANAL/URTL SPHNCTR OTH/THN NDL Issa Henriquez MD [address] [place] [address] [place] [address] Referral ID Status Reason Start Date Expiration Date Visits Requested Visits Authorized [id number] Pending Review Auto-Generat ed Referral 10/24/2023 10/23/2024 1 1 [facility] for visit Narrative* Outpatient Procedure (Routine) - Closed Specialty Diagnoses / Procedures Referred By Huan andrews Referred To Contact [facility] Diagnoses History of seizure Procedures EPIL EEG LONG EEG EXTENDED MONITORING 61-119 MINUTES ELECTROENCEPHALOGRAM REC COMA/SLEEP ONLY Etienne Vinson MD [address] [place] [address] [place] [address] Referral ID Status Reason Start Date Expiration Date V isits Requested Visits Authorized [id number] Closed Auto-Generate d Referral 05/19/2022 05/19/2023 1 1 [facility] for visit Narrative* Outpatient Procedure (Routine) - Closed Specialty Diagnoses / Procedures [facility] Referred To Contact [facility] Diagnoses Hyperreflexia Fasciculations Weakness Procedures EMG(NEURO/NI) NERVE CONDUCTION STUDIES 9-10 STUDIES Rubin Verde MD [address] [place] [address] [place] [address] Referral ID Status Reason Start Date Expiration Date V isits Requested Visits Authorized [id number] Closed Auto-Generate d Referral 01/01/2023 06/11/2023 1 1 [facility] Summary Purpose Family History No Family History Records FoundNo Family History Records FoundNo Family History Records FoundNo Family History Records FoundNo Family History Records FoundNo Family History Records FoundNo Family History Records FoundNo Family History Records FoundNo Family History Records FoundNo Family History Records FoundNo Family History Records FoundNo Family History Records FoundNo Family History Records FoundNo Family History Records FoundNo Family History Records FoundNo Family History Records FoundNo Family History Records Found Advance Directives Documents on File Type Date Recorded Patient Receiving Associate Expl anation Advance Directives and Living Will Documents on File Type Date Recorded Patient Receiving Associate Expl anation Advance Directives and Livin g Will 01/08/2020 4:25 PM Documents on File Type Date Recorded Patient Receiving Associate Expl anation ACP-Advance Directive ACP-Power of Respite Worker Latest Code Status on File Code Status Date Activated Date Inactivated Comments Full Code 07/15/2015 12:09 PM 07/15/2015 3:53 PM Full Code 07/15/2015 9:14 AM 07/15/2015 12:09 PM Documents on File Type Date Recorded Patient Receiving Associate Expl anation ACP-Advance Directive ACP-Power of Respite Worker Latest Code Status on File Code Status Date Activated Date Inactivated Comments Full Code 07/15/2015 12:09 PM 07/15/2015 3:53 PM Full Code 07/15/2015 9:14 AM 07/15/2015 12:09 PM Documents on File Type Date Recorded Patient Receiving Associate Expl anation Advance Directives and Livin g Will 08/28/2020 4:25 PM Latest Code Status on File Code Status Date Activated Date Inactivated Comments Full Code 11/17/2020 9:33 PM Full Code 07/15/2015 12:09 PM 07/15/2015 3:53 PM Latest Code Status on File Code Status Date Activated Date Inactivated Comments Full Code 11/20/2020 2:03 AM Full Code 11/17/2020 9:33 PM 11/18/2020 7:55 AM Latest Code Status on File Date Activated Date Inactivated Comments 02/27/2022 5:26 PM 02/28/2022 9:41 PM Latest Code Status on File Date Activated Date Inactivated Comments 02/27/2022 5:26 PM 02/28/2022 9:41 PM Latest Code Status on File Code Status Date Activated Date Inactivated Comments Full Code 02/27/2022 5:26 PM 02/28/2022 9:41 PM Latest Code Status on File Code Status Date Activated Date Inactivated Comments Full Code 11/26/2020 12:38 AM 11/27/2020 5:30 PM Full Code 11/25/2020 4:36 PM 11/26/2020 12:38 AM Full Code 11/20/2020 2:03 AM 11/20/2020 9:40 AM Latest Code Status on File Code Status Date Activated Date Inactivated Comments Full Code 02/27/2022 5:26 PM 02/28/2022 9:41 PM Latest Code Status on File Code Status Date Activated Date Inactivated Comments Full Code 07/29/2022 12:31 PM 08/02/2022 4:06 AM This code status was ascertained in the following way: Code status discussion: discussion with patient To update the patient's code status, place a code status order. Do not modify or discontinue any currently active code status orders. Latest Code Status on File Code Status Date Activated Date Inactivated Comments Full Code-Unverified 05/02/2015 9:03 PM 05/05/2015 12: 39 PM Latest Code Status on File Code Status Date Activated Date Inactivated Comments Full Code-Unverified 05/02/2015 9:03 PM 05/05/2015 12: 39 PM Latest Code Status on File Code Status Date Activated Date Inactivated Comments Full Code 11/26/2020 12:38 AM 11/27/2020 5:30 PM Code Status History Code Status Date Activated Date Inactivated Comments Full Code 11/25/2020 4:36 PM 11/26/2020 12:38 AM Full Code 11/20/2020 2:03 AM 11/20/2020 9:40 AM Full Code 11/17/2020 9:33 PM 11/18/2020 7:55 AM Full Code 07/15/2015 12:09 PM 07/15/2015 3:53 PM Latest Code Status on File Code Status Date Activated Date Inactivated Comments Full Code 11/26/2020 12:38 AM 11/27/2020 5:30 PM Code Status History Code Status Date Activated Date Inactivated Comments Full Code 11/25/2020 4:36 PM 11/26/2020 12:38 AM Full Code 11/20/2020 2:03 AM 11/20/2020 9:40 AM Full Code 11/17/2020 9:33 PM 11/18/2020 7:55 AM Full Code 07/15/2015 12:09 PM 07/15/2015 3:53 PM Latest Code Status on File Code Status Date Activated Date Inactivated Comments Full Code 08/04/2023 1:46 AM Question Answer Comments Full Code Order Discussed With: Patient Latest Code Status on File Code Status Date Activated Date Inactivated Comments Full Code 08/04/2023 1:46 AM 08/07/2023 7:44 PM Question Answer Comments Full Code Order Discussed With: Patient Latest Code Status on File Code Status Date Activated Date Inactivated Comments Full Code 08/04/2023 1:46 AM 08/07/2023 7:44 PM Question Answer Comments Full Code Order Discussed With: Patient Date Activated Date Inactivated Comments 08/04/2023 1:46 AM 08/07/2023 7:44 PM Question Answer Comments Full Code Order Discussed With: Patient Date Activated Date Inactivated Comments 08/04/2023 1:46 AM 08/07/2023 7:44 PM Question Answer Comments Full Code Order Discussed With: Patient History of Present Illness * Harish Garza DO - 12/30/2019 8:51 AM EDT Harish Garza DO [facility] Bethanie Dinero : 1990 DATE OF VISIT: 01/01/2020 ASSESSMENT/PLAN Preop examination Patient brought only a generic physical exam form without pre-op orders. She did have these orders on her cell phone and eventually was able to fax them from her phone to our office. Multiple attempts were made to call the plastic surgeon in [place], [place] for a diagnosis code for the condition being treated- we have been told by this office that since this is elective surgery nodiagnosis code will be provided other than the pre-op physical Z code EKG, UA, chest xray and labs have been ordered using the Z01.818 code EKG today NSR with one PAC Patient left the office prior to having these services done. Staff will contact patient to return to office for the UA, EKG and lab work. (patient returned to office late afternoon) Patient will needto get the CXR at an [facility] radiology facility. Vision and Hearing Screen: No exam data present Additional clinical comments Patient Instructions/Plan No follow-ups on file. - For any new medications prescribed today, patient was educated about indications for the medication, how to take the medication and potential side effects of the medications. An After Visit Summary was printed and given to the patient. ................................................................................ ......................................................... SUBJECTIVE Chief Complaint Patient presents with Pre-op Exam Stomach Liposuction-Dr. Radha Luther-Jan 6 HPI New patient here for pre-op physical for liposuction surgery ( abdominal and low back) in [place], [place] on 01/16/2020. Does not bring in pre-op paperwork- it is on patient's cell phone. Patient willattempt to download the orders to this office. Recent of best friend 3 weeks ago at age 30 Hx childhood asthma Half sister born with DeGeorge syndrome PAP/PELVIC : 2018- normal. Hx LEEP 2 years ago, then had normal PAP after FDLMP 12/08/2019, regular, monthly. Sexually active with one partner- not using control INFLUENZA (annual): never TdaP Booster: > 10 years Exercise: regularly Vision exam: 2019 Dental exam: 2018 Diet: regular Past Medical History: Diagnosis Date Anxiety Asthma Depression Patient denies medical problems Past Surgical History: Procedure Laterality Date denies Family History Problem Relation Age of Onset No Known Problems Mother No Known Problems Father Social History Tobacco Use Smoking status: Former Smoker Smokeless tobacco: Never Used Substance Use Topics Alcohol use: Yes Frequency: Monthly or less Comment: rare Drug use: No Immunization History Administered Date(s) Administered Tdap 08/06/2016 ALLERGIES/INTOLERANCES No Known Allergies REVIEW OF SYSTEMS Review of Systems Constitutional: Negative for chills, fatigue, fever and unexpected weight change. HENT: Negative. Eyes: Negative for visual disturbance. Respiratory: Negative for cough, shortness of breath and wheezing. Cardiovascular: Negative for chest pain, palpitations and leg swelling. Gastrointestinal: Negative for abdominal pain, constipation, diarrhea, nausea and vomiting. Genitourinary: Negative for dysuria, flank pain, frequency, hematuria and urgency. Musculoskeletal: Positive for back pain (intermitent, works standing all day). Skin: Negative. Neurological: Negative for dizziness, light-headedness, numbness and headaches. Psychiatric/Behavioral: Negative for decreased concentration, dysphoric mood, sleep disturbance andsuicidal ideas. The patient is nervous/anxious. All other systems reviewed and are negative. OBJECTIVE BP 108/72 (BP Location: Left arm, Patient Position: Sitting, BP Cuff Size: Adult) Pulse 67 Temp98.3 F (36.8 C) (Oral) Resp 16 Ht 5' 6 Wt 72 kg (158 lb 11.2 oz) LMP 12/24/2019 (Approximate) SpO2 98% BMI 25.61 kg/m Wt Readings from Last 3 Encounters: 12/30/19 72 kg (158 lb 11.2 oz) 08/06/16 64.2 kg (141 lb 8 oz) Ht Readings from Last 3 Encounters: 12/30/19 5' 6 08/06/16 5' 7 BP Readings from Last 3 Encounters: 12/30/19 108/72 08/06/16 (!) 114/55 Physical Exam Constitutional: She is oriented to person, place, and time. She appears well- developed and well-nourished. HENT: Head: Normocephalic and atraumatic. Right Ear: Tympanic membrane normal. Left Ear: Tympanic membrane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 ID Status Reason Start Date Expiration Date Visits Requested Visits Authorized [id number] Pending Review Auto-Generat ed Referral 12/21/2022 12/22/2023 1 1 Specialty Diagnoses / Procedures Referred By Contac t Referred To Contact Psychology Diagnoses Chronic back pain, unspecified back location, unspecified back pain laterality Procedures CONSULT TO PSYCHOLOGY OFFICE/OUTPATIENT [facility] 60-74 MINUTES Rubin Verde MD [address] [place] [phone] Referral ID Status Reason Start Date Expiration Date Visits Requested Visits Authorized [id number] Pending Review PCP Requested Referral 02/28/2023 02/28/2024 1 1 Specialty Diagnoses / Procedures Referred By Contac t Referred To Contact Diagnoses Chronic back pain, unspecified back location, unspecified back pain laterality Abnormal involuntary movement Procedures PROVIDER ORDERED FOLLOW UP OFFICE/OUTPATIENT [facility] 60-74 MINUTES Rubin Verde MD [address] [place] [id number] Referral ID Status Reason Start Date Expiration Date Visits Requested Visits Authorized [id number] Authorized PCP Requested Referral 06/30/2023 02/28/2024 1 1 Specialty Diagnoses / Procedures Referred By Contac t Referred To Contact [facility] [place] Diagnoses Chronic back pain, unspecified back location, unspecified back pain laterality Procedures CONSULT TO [facility] ([facility]RONIC PAIN) OFFICE/OUTPATIENT [facility] 60-74 MINUTES Rubin Verde MD [address] [place] [address] Referral ID Status Reason Start Date Expiration Date Visits Requested Visits Authorized [id number] Pending Review PCP Requested Referral 02/28/2023 02/28/2024 1 1 Specialty Diagnoses / Procedures Referred By Contac t Referred To Contact MR IMAGING Diagnoses Spinal stenosis of cervical region Procedures MRI CERVICAL SPINE WO IVCON MRI SPINAL CANAL CERVICAL W/O CONTRAST Rubin Joseph MD [address] [place] [address] Imaging [id number] Referral ID Status Reason Start Date Expiration Date V isits Requested Visits Authorized [id number] Closed Auto-Generate d Referral 01/12/2023 03/13/2023 1 1 Specialty Diagnoses / Procedures Referred By Contac t Referred To Contact MR IMAGING Diagnoses Hyperreflexia Weakness B12 deficiency Procedures MRI THORACIC SPINE WO IVCON MRI SPINAL CANAL THORACIC W/O CONTRAST Rubin Joseph MD [address] [place] [id number] Mr Imaging [id number] Referral ID Status Reason Start Date Expiration Date V isits Requested Visits Authorized [id number] Closed Auto-Generate d Referral 01/12/2023 03/13/2023 1 1 Specialty Diagnoses / Procedures Referred By Contac t Referred To Contact Cardiology Diagnoses Palpitations Racing heart beat Procedures CONSULT TO CARDIOLOGY OFFICE/OUTPATIENT [facility] 60-74 MINUTES Rubin Verde MD [address] [place] [address] Referral ID Status Reason Start Date Expiration Date Visits Requested Visits Authorized [id number] Authorized PCP Requested Referral 04/20/2023 04/19/2024 1 1 Specialty Diagnoses / Procedures Referred By Contac t Referred To Contact Diagnoses Abdominal pain, unspecified abdominal location Procedures Vascular duplex abdominal visceral arteries/organs limited Jaja Truong APRN - CNM [address] [place] [address] Referral ID Status Reason Start Date Expiration Date Visits Re quested Visits Authorized [id number] Open 06/15/2023 06/14/2024 1 1 Specialty Diagnoses / Procedures Referred By Contac t Referred To Contact Radiology Diagnoses Abdominal pain, unspecified abdominal location Procedures US Non OB Transvaginal Jaja Truong APRN - CNM [address] [place] [address] Referral ID Status Reason Start Date Expiration Date Visits Re quested Visits Authorized [id number] Open 06/15/2023 06/14/2024 1 1 Specialty Diagnoses / Procedures Referred By Contac t Referred To Contact [facility] Diagnoses Abnormal voice Procedures CONSULT TO SPEECH THERAPY OFFICE/OUTPATIENT [facility] 60 MINUTES Rubin Verde MD [address] [place] [phone] [place] [address] Referral ID Status Reason Start Date Expiration Date Visits Requested Visits Authorized [id number] Pending Review Auto-Generat ed Referral 07/21/2023 07/20/2024 1 1 Specialty Diagnoses / Procedures Referred By Contac t Referred To Contact Gastroenterology Diagnoses Constipation, unspecified constipation type Vomiting without nausea, unspecified vomiting type Gastroparesis Procedures CONSULT TO GASTROENTEROLOGY OFFICE/OUTPATIENT [facility] 60 MINUTES Rubin Verde MD [address] [place] [address] Referral ID Status Reason Start Date Expiration Date Visits Requested Visits Authorized [id number] Authorized PCP Requested Referral 07/21/2023 07/20/2024 1 1 Specialty Diagnoses / Procedures Referred By Contac t Referred To Contact [facility] Diagnoses Multiple neurological symptoms Dysphonia Dysphagia, unspecified type Procedures SPEECH REHAB FOLLOW UP ORDER TX SPEECH LANG VOICE COMMJ &/AUDITORY PROC IND Speech [facility] [address] [place] [id number] [place] [address] Referral ID Status Reason Start Date Expiration Date Visits Requested Visits Authorized [id number] Pending Review PCP Requested Referral Auto-Generate d Referral 07/24/2023 10/22/2023 1 1 Specialty Diagnoses / Procedures Referred By Contac t Referred To Contact Procedures CARDIOVASCULAR MEDICINE OP FOLLOW UP APPT ORDER Jay Phillips MD [address] [place] [phone] Referral ID Status Reason Start Date Expiration Date Visits Requested Visits Authorized [id number] Ref Not Required PCP Requested Referral 07/28/2023 07/27/2024 1 1 Specialty Diagnoses / Procedures Referred By Contac t Referred To Contact [facility] Diagnoses Palpitations Procedures ECHO ECHO TTHRC R-T 2D W/WOM-MODE COMPL SPEC&COLR D Jay Phillips MD [address] [address] [facility] [address] Referral ID Status Reason Start Date Expiration Date Visits Requested Visits Authorized [id number] Authorized Auto-Generat ed Referral 07/28/2023 09/26/2023 1 1 Specialty Diagnoses / Procedures Referred By Contac t Referred To Contact [facility] Diagnoses Chronic back pain, unspecified back location, unspecified back pain laterality Abnormality of gait Procedures PT REHAB FOLLOW UP ORDER THERAPEUTIC EXERCISES RE, EA 15 MIN. Eneida Morales, PT, DPT [address] [place] [address] [facility] [place] [address] Referral ID Status Reason Start Date Expiration Date Visits Requested Visits Authorized [id number] Pending Review PCP Requested Referral Auto-Generate d Referral 07/31/2023 10/29/2023 1 1 Specialty Diagnoses / Procedures Referred By Contac t Referred To Contact Nephrology Diagnoses Labile blood pressure POTS (postural orthostatic tachycardia syndrome) Procedures CONSULT TO KIDNEY MEDICINE OFFICE/OUTPATIENT [facility] 60 MINUTES Noa Gauthier, [address] [place], [place] [id number] Referral ID Status Reason Start Date Expiration Date Visits Requested Visits Authorized [id number] Authorized PCP Requested Referral 08/01/2023 07/31/2024 1 1 Specialty Diagnoses / Procedures Referred By Contac t Referred To Contact Ent - Otolaryngology Diagnoses Aphthous ulcer of mouth Procedures CONSULT TO ENT OFFICE/OUTPATIENT [facility] 60 MINUTES Noa Gauthier, DO [address] [place] [address] Referral ID Status Reason Start Date Expiration Date Visits Requested Visits Authorized [id number] Authorized PCP Requested Referral 08/31/2023 08/30/2024 1 1 Specialty Diagnoses / Procedures Referred By Contac t Referred To Contact Noa Gauthier DO [address] [place] [address] Referral ID Status Reason Start Date Expiration Date Visits Re quested Visits Authorized [id number] Closed 1 1 Specialty Diagnoses / Procedures Referred By Contac t Referred To Contact Diagnoses Vitamin B12 deficiency [place] [address] Referral ID Status Reason Start Date Expiration Date Visits Re quested Visits Authorized [id number] Closed 1 1 Specialty Diagnoses / Procedures Referred By Contac t Referred To Contact Diagnoses Weakness Fasciculations Abnormal involuntary movement Procedures PROVIDER ORDERED FOLLOW UP OFFICE/OUTPATIENT NEW [facility] 60 MINUTES Peggy Gilmore APRN.RN CARDIOLOGY [address] [place] [address] Rubin Verde MD [address] [place] [address] Referral ID Status Reason Start Date Expiration Date Visits Requested Visits Authorized [id number] Authorized PCP Requested Referral 01/29/2024 09/28/2024 1 1 Specialty Diagnoses / Procedures Referred By Contac t Referred To Contact Rheumatology Diagnoses Behcet's syndrome (HCC) Procedures CONSULT TO RHEUM/IMMUN DISEASE OFFICE/OUTPATIENT [facility] 60 MINUTES Noa Gauthier DO [address] [place] [address] Referral ID Status Reason Start Date Expiration Date Visits Requested Visits Authorized [id number] Authorized PCP Requested Referral 10/03/2023 10/02/2024 1 1 Specialty Diagnoses / Procedures Referred By Contac t Referred To Contact Urology Diagnoses Neurogenic bladder Procedures CONSULT TO UROLOGY Noa Gauthier DO [address] [place] [address] Referral ID Status Reason Start Date Expiration Date Visits Requested Visits Authorized [id number] Ref Not Required PCP Requested Referral 10/09/2023 10/08/2024 1 1 Specialty Diagnoses / Procedures Referred By Contac t Referred To Contact [facility] Procedures CARDIOVASCULAR MEDICINE OP FOLLOW UP APPT ORDER Marie Stevens APRN.RN CARDIOLOGY [address] [id number] [place] [address] Referral ID Status Reason Start Date Expiration Date Visits Requested Visits Authorized [id number] Ref Not Required PCP Requested Referral 10/16/2023 10/15/2024 1 1 Specialty Diagnoses / Procedures Referred By Contac t Referred To Contact Diagnoses Recurrent aphthous stomatitis Barbara Rubio MD [address] [place], [place] [phone] Referral ID Status Reason Start Date Expiration Date V isits Requested Visits Authorized [id number] Pending Review 1 1 Specialty Diagnoses / Procedures Referred By Contac t Referred To Contact [facility] Diagnoses Low back pain with bilateral sciatica, unspecified back pain laterality, unspecified chronicity Procedures PT REHAB FOLLOW UP ORDER THERAPEUTIC EXERCISES RE, EA 15 MIN. Pt [facility] [address] [place] [address] [facility] [address] [address] Referral ID Status Reason Start Date Expiration Date Visits Requested Visits Authorized [id number] Pending Review PCP Requested Referral Auto-Generate d Referral 10/23/2023 01/21/2024 1 1 Referral ID Status Reason Start Date Expiration Date Visits Re quested Visits Authorized [id number] Closed 1 1 Specialty Diagnoses / Procedures Referred By Contac t Referred To Contact [facility] Diagnoses Functional neurological symptom disorder with mixed symptoms Procedures CONSULT TO CONSUMER SAFETY INSPECTOR OCCUPATIONAL THERAPY EVAL HIGH COMPLEX 60 MINS Rubin Verde MD [address] [place], [place] [address] [place] [phone] [facility] [place] [phone] Referral ID Status Reason Start Date Expiration Date Visits Requested Visits Authorized [id number] Pending Review Auto-Generat ed Referral 12/04/2023 12/03/2024 1 1 Specialty Diagnoses / Procedures Referred By Contac t Referred To Contact [facility] Diagnoses Functional neurological symptom disorder with mixed symptoms Procedures CONSULT TO PHYSICAL THERAPY PHYSICAL THERAPY EVALUATION HIGH [facility] 45 MINS Rubin Verde MD [address] [place] [address] [facility] [place] [address] Referral ID Status Reason Start Date Expiration Date Visits Requested Visits Authorized [id number] Pending Review Auto-Generat ed Referral 12/04/2023 12/03/2024 1 1 Specialty Diagnoses / Procedures Referred By Contac t Referred To Contact Psychology Diagnoses Chronic back pain, unspecified back location, unspecified back pain laterality Abnormality of gait Functional neurological symptom disorder with mixed symptoms Procedures CONSULT TO PSYCHOLOGY OFFICE/OUTPATIENT [facility] 60 MINUTES Rubin Verde MD [address] [place] [address] Referral ID Status Reason Start Date Expiration Date Visits Requested Visits Authorized [id number] Pending Review PCP Requested Referral 12/04/2023 12/03/2024 1 1 Specialty Diagnoses / Procedures Referred By Contac t Referred To Contact Diagnoses Functional neurological symptom disorder with mixed symptoms Procedures CONSULT TO [facility] EDUCATION SHARED MEDICAL APPOINTMENT Rubin Verde MD [address] [place] [address] Referral ID Status Reason Start Date Expiration Date Visits Requested Visits Authorized [id number] Ref Not Required PCP Requested Referral 12/04/2023 12/03/2024 1 1 Specialty Diagnoses / Procedures Referred By Contac t Referred To Contact Diagnoses Chronic back pain, unspecified back location, unspecified back pain laterality Abnormality of gait Functional neurological symptom disorder with mixed symptoms Procedures CONSULT TO FUNCTIONAL MOVEMENT DISORDERS (FMD) OFFICE/OUTPATIENT [facility] 60 MINUTES Rubin Verde MD [address] [place] [address] Referral ID Status Reason Start Date Expiration Date Visits Requested Visits Authorized [id number] Authorized PCP Requested Referral 12/04/2023 12/03/2024 1 1 Specialty Diagnoses / Procedures Referred By Huan andrews Referred To Contact Dermatology Diagnoses Rash Procedures CONSULT TO DERMATOLOGY OFFICE/OUTPATIENT [facility] 60 MINUTES Noa Gauthier DO [address] [place] [address] Referral ID Status Reason Start Date Expiration Date Visits Requested Visits Authorized [id number] Authorized PCP Requested Referral 12/12/2023 12/11/2024 1 1 Discharge Instructions * Instructions* Vanda Joseph PA-C - 05/20/2020 Call to arrange follow-up with [employer] it technical specialist for continued evaluation. * Attachments The following attachments cannot be sent through Care Everywhere. * : Weeks 10 to 14 (Surinamese) documented in this encounter* Attachments The following attachments cannot be sent through Care Everywhere. * Lightheadedness or Faintness (Surinamese) * SOB (Shortness of Breath) (Surinamese) * Panic Attacks (Surinamese) documented in this encounter* Attachments The following attachments cannot be sent through Care Everywhere. * Miscarriage: Threatened (Surinamese) documented in this encounter* Instructions* Mary Ponce, - 08/28/2020 Round Ligament Pain: Care Instructions Your Care Instructions Round ligament pain is a common pain during . You may feel a sharp brief pain on one or both sides of your belly. It may go down into your groin. It's usually felt for the first time during the second trimester. This pain is a normal part of . It will go away as your continues or after your baby is born. Your uterus is supported by two ligaments that go from the top and sides of the uterus to the bonesof the pelvis. These are the round ligaments. As your uterus grows, these ligaments stretch and tighten with your movements. This may be the cause of the pain. You may find that certain activities seem to cause pain. If you can, avoid those activities. Your doctor can usually diagnose round ligament pain from your symptoms and an exam. If you have bleeding or other symptoms, your doctor may also do an imaging test, such as an ultrasound. Your doctor may suggest that you take an [id number] pain medicine, such as acetaminophen. Follow-up care is a daley part of your treatment and safety. Be sure to make and go to all appointments, and call your doctor if you are having problems. It's also a good idea to know your test resultsand keep a list of the medicines you take. How can you care for yourself at home? If certain movements seem to trigger the pain, see if you can avoid them while you are . Stay active. If your doctor says it's okay, try moderate exercise. Many women find that water exercise is most comfortable. Examples are swimming and water aerobics. Ask your doctor about taking acetaminophen for pain. Be safe with medicines. Read and follow all instructions on the label. When should you call for help? Call your doctor now or seek immediate medical care if: You think you might be in labor. You have new or worse pain. Watch closely for changes in your health, and be sure to contact your doctor if you have any problems. Where can you learn more? Log into your personal health record on https://Invieo.NumberPicture and enter R110 in the Education box to learn more about Round Ligament Pain: Care Instructions. Current as of: July 23, 2019 Content Version: 12.7 [employer]. Care instructions adapted under license by your healthcare professional. If you have questions about a medical condition or this instruction, always ask your healthcare professional. [employer] disclaims any warranty or liability for your use of this information. * Attachments The following attachments cannot be sent through Care Everywhere. * : When to Call (After 20 Weeks): General Info (Surinamese) * : Kick Counts (Surinamese) documented in this encounter Instructions * Patient Instructions* Francine Mayers, - 09/08/2020 11:00 AM EDT Weeks 26 to 30 of Your : Care Instructions Overview You are now entering your last trimester of . Your baby is growing quickly. You'll probably feel your baby moving around more often. Your doctor may ask you to count your baby's kicks. Your back may ache as your body gets used to your baby's size and length. If you haven't already had the Tdap shot during this , talk to your doctor about getting it. It will help protect your against pertussis infection. During this time, it's important to take care of yourself and pay attention to what your body needs. If you feel sexual, you can explore ways to be close with your partner that match your comfort anddesire. Follow-up care is a daley part of your treatment and safety. Be sure to make and go to all appointments, and call your doctor if you are having problems. It's also a good idea to know your test resultsand keep a list of the medicines you take. How can you care for yourself at home? Take it easy at work Take frequent breaks. If possible, stop working when you are tired, and rest during your lunch hour. Take bathroom breaks every 2 hours. Change positions often. If you sit for long periods, stand up and walk around. When you stand for a long time, keep one foot on a low stool with your knee bent. After standing a lot, sit with your feet up. Avoid fumes, chemicals, and tobacco smoke. Be sexual in your own way Having sex during is okay, unless your doctor tells you not to. You may be very interested in sex, or you may have no interest at all. Your growing belly can make it hard to find a good position during intercourse. [place] and explore. You may get cramps in your uterus when your partner touches your breasts. A back rub may relieve the backache or cramps that sometimes follow orgasm. Learn about labor Watch for signs of labor. You may be going into labor if: ? You have menstrual-like cramps, with or without nausea. ? You have about 6 or more contractions in 1 hour, even after you have had a glass of water and areresting. ? You have a low, dull backache that does not go away when you change your position. ? You have pain or pressure in your pelvis that comes and goes in a pattern. ? You have intestinal cramping or flu-like symptoms, with or without diarrhea. ? You notice an increase or change in your vaginal discharge. Discharge may be heavy, mucus-like, watery, or streaked with blood. ? Your water breaks. If you think you have labor: ? Drink 2 or 3 glasses of water or juice. Not drinking enough fluids can cause contractions. ? Stop what you are doing, and empty your bladder. Then lie down on your left side for at least 1 hour. ? While lying on your side, find your breast bone. Put your fingers in the soft spot just below it.Move your fingers down toward your belly button to find the top of your uterus. Check to see if it is tight. ? Contractions can be weak or strong. Record your contractions for an hour. Time a contraction fromthe start of one contraction to the start of the next one. ? Single or several strong contractions without a pattern are called Racine- Rees contractions. They are practice contractions but not the start of labor. They often stop if you change what you are doing. ? Call your doctor if you have regular contractions. Where can you learn more? Log into your personal health record on https://Invieo.NumberPicture and enter S999 in the Education box to learn more about Weeks 26 to 30 of Your : Care Instructions. Current as of: July 23, 2019 Content Version: 12.7 [employer]. Care instructions adapted under license by your healthcare professional. If you have questions about a medical condition or this instruction, always ask your healthcare professional. [employer] disclaims any warranty or liability for your use of this information. documented in this encounter* Patient Instructions* Francine Mayers DO - 09/08/2020 11:00 AM EDT Weeks 26 to 30 of Your : Care Instructions Overview You are now entering your last trimester of . Your baby is growing quickly. You'll probably feel your baby moving around more often. Your doctor may ask you to count your baby's kicks. Your back may ache as your body gets used to your baby's size and length. If you haven't already had the Tdap shot during this , talk to your doctor about getting it. It will help protect your against pertussis infection. During this time, it's important to take care of yourself and pay attention to what your body needs. If you feel sexual, you can explore ways to be close with your partner that match your comfort anddesire. Follow-up care is a daley part of your treatment and safety. Be sure to make and go to all appointments, and call your doctor if you are having problems. It's also a good idea to know your test resultsand keep a list of the medicines you take. How can you care for yourself at home? Take it easy at work Take frequent breaks. If possible, stop working when you are tired, and rest during your lunch hour. Take bathroom breaks every 2 hours. Change positions often. If you sit for long periods, stand up and walk around. When you stand for a long time, keep one foot on a low stool with your knee bent. After standing a lot, sit with your feet up. Avoid fumes, chemicals, and tobacco smoke. Be sexual in your own way Having sex during is okay, unless your doctor tells you not to. You may be very interested in sex, or you may have no interest at all. Your growing belly can make it hard to find a good position during intercourse. [place] and explore. You may get cramps in your uterus when your partner touches your breasts. A back rub may relieve the backache or cramps that sometimes follow orgasm. Learn about labor Watch for signs of labor. You may be going into labor if: ? You have menstrual-like cramps, with or without nausea. ? You have about 6 or more contractions in 1 hour, even after you have had a glass of water and areresting. ? You have a low, dull backache that does not go away when you change your position. ? You have pain or pressure in your pelvis that comes and goes in a pattern. ? You have intestinal cramping or flu-like symptoms, with or without diarrhea. ? You notice an increase or change in your vaginal discharge. Discharge may be heavy, mucus-like, watery, or streaked with blood. ? Your water breaks. If you think you have labor: ? Drink 2 or 3 glasses of water or juice. Not drinking enough fluids can cause contractions. ? Stop what you are doing, and empty your bladder. Then lie down on your left side for at least 1 hour. ? While lying on your side, find your breast bone. Put your fingers in the soft spot just below it.Move your fingers down toward your belly button to find the top of your uterus. Check to see if it is tight. ? Contractions can be weak or strong. Record your contractions for an hour. Time a contraction fromthe start of one contraction to the start of the next one. ? Single or several strong contractions without a pattern are called Racine- Rees contractions. They are practice contractions but not the start of labor. They often stop if you change what you are doing. ? Call your doctor if you have regular contractions. Where can you learn more? Log into your personal health record on https://Invieo.NumberPicture and enter S999 in the Education box to learn more about Weeks 26 to 30 of Your : Care Instructions. Current as of: July 23, 2019 Content Version: 12.7 [employer]. Care instructions adapted under license by your healthcare professional. If you have questions about a medical condition or this instruction, always ask your healthcare professional. [employer] disclaims any warranty or liability for your use of this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 facial/trigem/cerv musc migraine. Megan Kern PA-C [address] [place] [address] Neur Headache Lkwd [facility] [address] [place] [address] Referral ID Status Reason Start Date Expiration Date V isits Requested Visits Authorized [id number] Authorized 09/11/2023 09/10/2024 5 5 Reason Comments Follow Up Established Patient Specialty Diagnoses / Procedures Referred By Contac t Referred To Contact Diagnoses Chronic back pain, unspecified back location, unspecified back pain laterality Abnormality of gait Weakness Fasciculations Procedures PROVIDER ORDERED FOLLOW UP OFFICE/OUTPATIENT [facility] 60 MINUTES Rubin Verde MD [address] [address] Referral ID Status Reason Start Date Expiration Date V isits Requested Visits Authorized [id number] Closed PCP Requested Referral 09/29/2023 06/29/2024 1 1 Reason Comments Established Patient Reason Comments Patient Question Reason Comments Follow Up C/O back pain. Reason Comments Follow Up Reason Comments Procedure Reason Onset Date Comments Refill Request 10/17/2023 Reason Onset Date Comments Refill Request 10/19/2023 Reason Comments PT Re-eval Patient Education Specialty Diagnoses / Procedures Referred By Contac t Referred To Contact [facility] Diagnoses Chronic back pain, unspecified back location, unspecified back pain laterality Abnormality of gait Procedures PT REHAB FOLLOW UP ORDER THERAPEUTIC EXERCISES RE, EA 15 MIN. Rubin Verde MD [address] [place] [address] [facility] [place] [phone] Referral ID Status Reason Start Date Expiration Date Visits Requested Visits Authorized [id number] Authorized PCP Requested Referral Auto-Generate d Referral 08/02/2023 10/31/2023 8 8 Reason Comments Medication Authorization Colchicine Reason Comments Patient Question Reason Comments Physical Therapy PT Progress Note Specialty Diagnoses / Procedures Referred By Contac t Referred To Contact [facility] Diagnoses Chronic back pain, unspecified back location, unspecified back pain laterality Abnormality of gait Procedures PT REHAB FOLLOW UP ORDER THERAPEUTIC EXERCISES RE, EA 15 MIN. Rubin Verde MD [address] [place] [address] [place] [phone] Referral ID Status Reason Start Date Expiration Date Visits Requested Visits Authorized [id number] Authorized PCP Requested Referral Auto-Generate d Referral 08/02/2023 02/10/2024 8 8 Reason Comments Follow Up Assessment & Plan Note - Harish Garza DO - 12/30/2019 9:39 AM EDTAssessment & Plan Note - Mary Ponce DO - 08/28/2020 8:43 PM EDT Miscellaneous Notes (unrecog nized section and content) Associated Problem(s): Preop examination Patient brought only a generic physical exam form without pre-op orders. She did have these orders on her cell phone and eventually was able to fax them from her phone to our office. Multiple attempts were made to call the plastic surgeon in [place], [place] for a diagnosis code for the condition being treated- we have been told by this office that since this is elective surgery no diagnosis code will be provided other than the pre-op physical Z code EKG, UA, chest xray and labs have been ordered using the Z01.818 code EKG today NSR with one PAC Patient left the office prior to having these services done. Staff will contact patient to return to office for the UA, EKG and lab work. (patient returned to office late afternoon) Patient will need to get the CXR at an [facility] radiology facility. documented in this encounter Associated Problem(s): Abdominal cramping affecting Patient presented with c/o low abdominal cramping x3 days, worsened in the last day after being on her feet for work, and general unwell feeling - COVID/flu neg - R/o PTL - SSE: neg wet prep, ferning, nitrazine. Physiologic discharge. No bleeding. - CLS 3.4cm at shortest measurement without dynamic changes or funneling - Cervix closed/thick/-3 - NST reassuring and appropriate for gestational age - Pt denies VB, LOF, endorses movement - UA WNL - GCT collected, pending - Pain likely round ligament pain. Discussed conservative therapy (rest, heat packs, belly band, tylenol) with patient understanding. - Patient stable for discharge to home with PTL precautions. F/u with [facility] as scheduled (first apt 09/08). Associated Problem(s): Anxiety Pt reports hx of anxiety and PTSD, sometimes has panic attacks and subjective heart palpitations - VSS, EKG NSR - Mood feels stable at this time, practices a lot of mindfulness/calming techniques - Does not feel the need to establish with provider at this time, however resources provided to patient Associated Problem(s): Vertigo Pt reports hx of nausea and vomiting related to vertigo - Offered nausea medication, patient declines - Contact information for family practice given for terminal operator continuity Associated Problem(s): 24 weeks gestation of 30 y.o. 24w6d (based on 7w4d US) - Pt of [facility] (Jaja Truong), transferring care to [facility] documented in this encounter Addended by: ISSAC DARNELL on: 09/08/2020 01:54 PM Modules accepted: Level of Service documented in this encounter Addended by: ISSAC DARNELL on: 09/08/2020 01:54 PM Modules accepted: Level of Service documented in this encounter Scheduled Active and Recently Administ ered Medications (unrecognized section and content) Medication Order 11/18/2020 11/19/2020 11/20/2020 hydrOXYzine (VISTARIL) capsule 50 mg (COMPLETED) 50 mg, Oral, ONCE, On Mon11/20/20 at 0515, For 1 dose 0502 (Given - Provid er: Kanwal Rutledge RN) Scheduled Medication Order 02/26/2022 02/27/2022 02/28/2022 cyanocobalamin (B-12) tablet 500 mcg 500 mcg, Oral, Daily, First dose on Mon02/28/22 at 1300 1300 (Given - Provid er: Geovanna Gilmore RN) enoxaparin (LOVENOX) syringe 40 mg (CANCELED) 40 mg, Subcutaneous, Daily, First dose on Mon02/27/22 at 1740, Administer in abdomen unless otherwise directed by prescriber. Notify physician if patient refuses., Indication: VTE Prophylaxis 1800 (Given - Provider: Jamila Brenner RN) hydrOXYzine (ATARAX) tablet 25 mg 25 mg, Oral, Once, On Mon02/28/22 at 0530, For 1 dose 0530 (Not Given - Provider: Jos Odom RN - Reason: Patient/family refused) ketorolac (TORADOL) injection 15 mg (COMPLETED) 15 mg, Intravenous, Once, On Mon02/27/22 at 1830, For 1 dose 1837 (Given - Provider: Jamila Brenner RN) ketorolac (TORADOL) injection 30 mg (COMPLETED) 30 mg, Intravenous, Once, On Mon02/28/22 at 1130, For 1 dose 1250 (Given - Provid er: Geovanna Gilmore RN) pyridoxine (vitamin B6) (B-6) tablet 25 mg 25 mg, Oral, Daily, First dose on Mon02/28/22 at 1300 1250 (Given - Provid er: Geovanna Gilmore RN) sodium chloride (PF) (NS) flush 5 mL(Linked Group 1) 5 mL, Intravenous, Every 8 hours scheduled, First dose on Mon02/27/22 at 1740, Saline lock 1740 (Not Given - Provider: Jamila Brenner RN - Reason: Other - Comment: LR infusing)2200 (Not Given - Provider: Jos Odom RN - Reason: Patient/family refused) 0600 (Given - Provider: Jos Odom, RN)1400 (Canceled Entry - Provider: Geovanna Gilmore RN) sodium chloride (PF) (NS) flush 5 mL(Linked Group 2) 5 mL, Intravenous, Every 8 hours scheduled, First dose on Mon02/27/22 at 1740, Saline lock 1740 (Not Given - Provider: Jamila Brenner RN - Reason: Other - Comment: LR infusing)2200 (Given - Provider: Jos Odom RN) 0600 (Given - Provider: Jos Odom RN)1400 (Canceled Entry - Provider: Geovanna Gilmore RN - Comment: fliushed prior) sodium chloride 0.9% (NS) bolus 500 mL (COMPLETED) 500 mL, Intravenous, at 967.7 mL/hr, Once, On Mon02/27/22 at 1530, For 1 dose 1601 (New Bag - Provider: Vy Huber RN)1645 (Stopped - Provider: Jamila Brenner RN) Continuous Medication Order 02/26/2022 02/27/2022 02/28/2022 lactated Ringers infusion (CANCELED) 125 mL/hr, Intravenous, Continuous, Starting on Mon02/27/22 at 1740, For 8 hours 1758 (New Bag - Provider: Jamila Brenner, RN)2349 (New Bag - Provider: Jos Odom, RN)2354 (New Bag - Provider: Jos Odom, RN)2359 (Restarted - Provider: Jos Odom, RN) 0000 (New Bag - Provider: Jos Odom, RN)1600 (Stopped - Provider: Geovanna Gilmore, RN) PRN Medication Order 02/26/2022 02/27/2022 02/28/2022 acetaminophen (TYLENOL) tablet 650 mg 650 mg, Oral, Every 6 hours PRN, mild pain, fever 100.4 F or greater, headaches, Starting on Mon02/28/22 at 0925 1044 (Given - Provider: Geovanna Gilmore, QUYNH) bisacodyL (DULCOLAX) suppository 10 mg 10 mg, Rectal, Daily PRN, constipation, Starting on Alden 02/27/22 at 1735 diazePAM (VALIUM) syringe 2.5 mg (CANCELED) 2.5 mg, Intravenous, Every 15 min PRN, other, Anxiety, may repeat x1 for total of 5mg, Starting on Mon02/27/22 at 1914, For 2 doses, VESICANT 1920 (Given - Provider: Jamila Brenner RN) gadoterate meglumine (DOTAREM) injection 15 mL (COMPLETED) 15 mL, Intravenous, Once in imaging, contrast, Starting on Alden 02/27/22 at 2017, For 1 dose 2016 (Contrast Administered - Provider: Patsy Encarnacion, TECHNOLOGIST) hydrALAZINE (APRESOLINE) injection 10 mg(Linked Group 3) 10 mg, Intravenous, Every 2 hour PRN, As ordered IF HR = 100 or less AND SBP or DBP greater than ranges stated in Hemodynamic Goal orders., Starting on Alden 02/27/22 at 1735, Use labetalol first if HR greater than 60. Do not use hydralazine if HR greater than 100. May repeat dose in 15 minutes if SBP or DBP remains above ranges stated in Hemodynamic Goal orders. If, 15 minutes after a repeat dose, SBP or DBP remains above ranges stated in Hemodynamic Goal orders, initiate antihypertensive infusion IF ordered (Otherwise notify physician). If infusion already running, titrate it as ordered. hydrOXYzine (ATARAX) tablet 25 mg 25 mg, Oral, 3 times daily PRN, anxiety, Starting on Mon02/28/22 at 0249 0312 (Given - Provider: Jos Odom, RN)0445 (Canceled Entry - Provider: Jos Odom, RN) iopamidoL (ISOVUE-370) 76 % injection 50 mL (COMPLETED) 50 mL, Intravenous, Once in imaging, contrast, Starting on 02/27/22 at 1530, For 1 dose 1537 (Contrast Administered - Provider: Yuridia Infante, TECHNOLOGIST) iopamidoL (ISOVUE-370) 76 % injection 75 mL (COMPLETED) 75 mL, Intravenous, Once in imaging, contrast, Starting on Mon02/27/22 at 1530, For 1 dose 1539 (Contrast Administered - Provider: Yuridia Infante, TECHNOLOGIST) labetaloL (NORMODYNE) injection 10 mg(Linked Group 3) 10 mg, Intravenous, Every 2 hour PRN, As ordered IF HR greater than 60 AND SBP or DBP greater than ranges stated in Hemodynamic Goal orders., Starting on 02/27/22 at 1735, Do not use labetolol if HR = 60 or less (Use hydralazine in that case, if ordered). May repeat dose in 15 minutes if SBP or DBP remains above ranges stated in Hemodynamic Goal orders. If, 15 minutes after a repeat dose, SBP or DBP remains above ranges stated in Hemodynamic Goal orders, initiate antihypertensive infusion IF ordered (Otherwise notify physician). If infusion already running, titrate it as ordered. ondansetron (ZOFRAN) injection 4 mg 4 mg, Intravenous, Every 6 hours PRN, nausea, vomiting, Starting on 02/27/22 at 1735 sodium chloride (PF) (NS) 0.9 % contrast line flush 80 mL 80 mL, Intravenous, Once in imaging, contrast, Per mail deliverer (Radiology) for line patency check, Starting on 02/27/22 at 1530, For 1 dose sodium chloride (PF) (NS) flush 5 mL(Linked Group 1) 5 mL, Intravenous, As needed, line care, Starting on 02/27/22 at 1735 sodium chloride (PF) (NS) flush 5 mL(Linked Group 2) 5 mL, Intravenous, As needed, line care, Starting on 02/27/22 at 1735 sodium chloride 0.9% (NS)(Linked Group 1) 0-150 mL/hr, Intravenous, As needed, To flush line after IV infusions when no maintenance IV ordered or a compatibility issue. Infuse 20ml at the same rate as the secondary infusion, Starting on 02/27/22 at 1735, Run as Primary IV. NOT intended for KVO. sodium chloride 0.9% (NS)(Linked Group 2) 0-150 mL/hr, Intravenous, As needed, To flush line after IV infusions when no maintenance IV ordered or a compatibility issue. Infuse 20ml at the same rate as the secondary infusion, Starting on 02/27/22 at 1735, Run as Primary IV. NOT intended for KVO. traZODone (DESYREL) tablet 50 mg 50 mg, Oral, Nightly PRN, sleep, Starting on Mon02/28/22 at 2100 Linked Groups Order Group 1: Saline lock IV (CANCELED) Routine, Continuous, Starting on 02/27/22 at 1740, Until Specified And sodium chloride (PF) (NS) flush 5 mLJump to med 5 mL, Intravenous, As needed, line care, Starting on 02/27/22 at 1735 And sodium chloride (PF) (NS) flush 5 mLJump to med 5 mL, Intravenous, Every 8 hours scheduled, First dose on 02/27/22 at 1740
Saline lock
And sodium chloride 0.9% (NS)Jump to med 0-150 mL/hr, Intravenous, As needed, To flush line after IV infusions when no maintenance IV ordered or a compatibility issue. Infuse 20ml at the same rate as the secondary infusion, Starting on 02/27/22 at 1735
Run as Primary IV. NOT intended for KVO.
Group 2: Saline lock IV (CANCELED) Routine, Continuous, Starting on 02/27/22 at 1740, Until Specified Group 3: labetaloL (NORMODYNE) injection 10 mgJump to med 10 mg, Intravenous, Every 2 hour PRN, As ordered IF HR greater than 60 AND SBP or DBP greater than ranges stated in Hemodynamic Goal orders., Starting on Mon02/27/22 at 1735
Do not use labetolol if HR = 60 or less (Use hydralazine in that case, if ordered). May repeat dose in 15 minutes if SBP or DBP remains above ranges stated in Hemodynamic Goal orders. If, 15 minutes after a repeat dose, SBP or DBP remains above ranges stated in Hemodynamic Goal orders, initiate antihypertensive infusion IF ordered (Otherwise notify physician). If infusion already running, titrate it as ordered.
Or hydrALAZINE (APRESOLINE) injection 10 mgJump to med 10 mg, Intravenous, Every 2 hour PRN, As ordered IF HR = 100 or less AND SBP or DBP greater than ranges stated in Hemodynamic Goal orders., Starting on 02/27/22 at 1735
Use labetalol first if HR greater than 60. Do not use hydralazine if HR greater than 100. May repeat dose in 15 minutes if SBP or DBP remains above ranges stated in Hemodynamic Goal orders. If, 15 minutes after a repeat dose, SBP or DBP remains above ranges stated in Hemodynamic Goal orders, initiate antihypertensive infusion IF ordered (Otherwise notify physician). If infusion already running, titrate it as ordered.
Scheduled Medication Order 08/08/2022 08/09/2022 08/10/2022 diphenhydrAMINE (BENADRYL) injection 50 mg (COMPLETED) 50 mg, Intravenous, ONCE, 1 dose, On Mon08/10/22 at 1200 1215 (Given - Provid er: Sana Kwon RN) diphenhydrAMINE (BENADRYL) injection 50 mg 50 mg, Intravenous, ONCE, 1 dose, On Mon08/10/22 at 1300 1300 (Canceled Entry - Provider: System Discharge - Comment: Automatically canceled at discontinue of medication order) Ketorolac (TORADOL) injection 15 mg (COMPLETED) 15 mg, Intravenous, ONCE, 1 dose, On Mon08/10/22 at 1230 1216 (Given - Provid er: Sana Kwon RN) Metoclopramide (REGLAN) injection 10 mg 10 mg, Intravenous, ONCE, 1 dose, On Mon08/10/22 at 1230, 1225 (Not Given - Pr ovider: Sana Kwon RN - Reason: Patient/family refused - Comment: pt states she is allergic to it) Prochlorperazine (COMPAZINE) injection 10 mg 10 mg, Intravenous, ONCE, 1 dose, On Mon08/10/22 at 1330, For IV route: dilute dose with 10mL normal saline and give by slow IV push at a rate of 5mg/min. Maximum of 40mg/day. 1330 (Canceled Entry - Provider: System Discharge - Comment: Automatically canceled at discontinue of medication order) Sodium chloride 0.9% IV solution 1,000 mL (COMPLETED) 1,000 mL, Intravenous, ONCE, 1 dose, On Mon08/10/22 at 1230 1216 ($$New Bag$$ - Provider: Sana Kwon RN)1349 (Stopped - Provider: Sana Kwon RN) Scheduled Medication Order 10/15/2022 10/16/2022 10/17/2022 LORazepam (ATIVAN) tablet 1 mg (COMPLETED) 1 mg, Oral, ONCE, 1 dose, On Mon10/17/22 at 1230 1237 (Given - Provid er: Shruthi Agrawal RN) Care Teams (unrecognized sec tion and content) Chip Bin Conveyor Tender Relationship Specialty Start Date End Date Harish Garza, DO [address] [place] [address] PCP - General Family Medicine 12/30/19 Chip Bin Conveyor Tender Relationship Specialty Start Date End Date Harish Garza, DO [facility] [place] [address] PCP - General Family Medicine 12/30/19 Chip Bin Conveyor Tender Relationship Specialty Start Date End Date Harish Garza, DO [address] [address] PCP - General Family Medicine 12/30/19 Chip Bin Conveyor Tender Relationship Specialty Start Date End Date Harish Garza, DO [address] [place] [address] PCP - General Family Medicine 12/30/19 Chip Bin Conveyor Tender Relationship Specialty Start Date End Date AbhinavHarish beaver, DO [address] [place] [address] PCP - General Family Medicine 12/30/19 Chip Bin Conveyor Tender Relationship Specialty Start Date End Date AbhinavHarish beaver, DO [address] [place] [address] PCP - General Family Medicine 12/30/19 Chip Bin Conveyor Tender Relationship Specialty Start Date End Date AbhinavHarish beaver, DO [address] [place] [address] PCP - General Family Medicine 12/30/19 Chip Bin Conveyor Tender Relationship Specialty Start Date End Date AbhinavHarish beaver, DO [address], [facility] PCP - General Family Medicine 12/30/19 Yuridia Johnson PSA Patient Last Repairer 03/31/22 Chip Bin Conveyor Tender Relationship Specialty Start Date End Date AbhinavHarish beaver, DO [address] [place] [address] PCP - General Family Medicine 12/30/19 Yuridia Johnson PSA Patient Last Repairer 03/31/22 Chip Bin Conveyor Tender Relationship Specialty Start Date End Date Alessandra Romero, DO [address] [facility] [address] [place], [id number] PCP - General Family Medicine 07/20/22 Yuridia Johnson PSA Patient Last Repairer 03/31/22 Chip Bin Conveyor Tender Relationship Specialty Start Date End Date Harish Garza [address] [facility] [address] [place] [address] Referring Family Medicine 07/21/22 Chip Bin Conveyor Tender Relationship Specialty Start Date End Date Harish Garza [address] [place] [place] [address] Referring Family Medicine 07/21/22 Chip Bin Conveyor Tender Relationship Specialty Start Date End Date Alessandra Romero, DO [address] [place] [place] [address] PCP - General Family Medicine 07/20/22 Yuridia Johnson PSA Patient Last Repairer 03/31/22 Chip Bin Conveyor Tender Relationship Specialty Start Date End Date Alessandra Romero DO [address] [place] [place] [address] PCP - General Family Medicine 07/27/22 Chip Bin Conveyor Tender Relationship Specialty Start Date End Date Harish Garza [address] [place] [place] [address] Referring Family Medicine 07/21/22 Chip Bin Conveyor Tender Relationship Specialty Start Date End Date Harish Garza [address] [place] [place] [address] Referring Family Medicine 07/21/22 Chip Bin Conveyor Tender Relationship Specialty Start Date End Date Alessandra Romero DO [address] [place] [address] PCP - General Family Medicine 07/20/22 Yuridia Johnson, PSA Patient Last Repairer 03/31/22 Chip Bin Conveyor Tender Relationship Specialty Start Date End Date Alessandra Romero DO [address] [place] [address] PCP - General Family Medicine 07/20/22 Yuridia Johnson, PSA Patient Last Repairer 03/31/22 Chip Bin Conveyor Tender Relationship Specialty Start Date End Date Harish Garza A [address] [place] [address] [place] [address] Referring Family Medicine 07/21/22 Chip Bin Conveyor Tender Relationship Specialty Start Date End Date Harish Garza [address] [facility] [address] [place] [address] Referring Family Medicine 07/21/22 Chip Bin Conveyor Tender Relationship Specialty Start Date End Date Mark Poe, MORTGAGE PROCESSING CLERK [address] [place] [address] PCP - General Nurse Practitioner - Family 08/10/22 Chip Bin Conveyor Tender Relationship Specialty Start Date End Date Mark Poe, MORTGAGE PROCESSING CLERK [address] [place] [address] PCP - General Nurse Practitioner - Family 08/10/22 Chip Bin Conveyor Tender Relationship Specialty Start Date End Date Alessandra Romero DO [address] [place] [address] PCP - General Family Medicine 07/20/22 Yuridia Johnson, PSA Patient Last Repairer 03/31/22 Chip Bin Conveyor Tender Relationship Specialty Start Date End Date Alessandra Romero DO [address] [place] [address] PCP - General Family Medicine 07/20/22 Yuridia Johnson, PSA Patient Last Repairer 03/31/22 Chip Bin Conveyor Tender Relationship Specialty Start Date End Date Alessandra Romero DO [address] [place] [address] PCP - General Family Medicine 07/20/22 Yuridia Johnson, PSA Patient Last Repairer 03/31/22 Chip Bin Conveyor Tender Relationship Specialty Start Date End Date Harish Garza [address] [place] [address] [place] [address] Referring Family Medicine 07/21/22 Chip Bin Conveyor Tender Relationship Specialty Start Date End Date Harish Garza [address] [place] [address] [place] [address] Referring Family Medicine 07/21/22 Chip Bin Conveyor Tender Relationship Specialty Start Date End Date Harish Garza [address] [place] [address] [place] [address] Referring Family Medicine 07/21/22 Chip Bin Conveyor Tender Relationship Specialty Start Date End Date Harish Garza [address] [place] [address] [place] [address] Referring Family Medicine 07/21/22 Chip Bin Conveyor Tender Relationship Specialty Start Date End Date Harish Garza [address] [place] [address] [place] [address] Referring Family Medicine 07/21/22 Chip Bin Conveyor Tender Relationship Specialty Start Date End Date Harish Garza [address] [place] [address] [place] [address] Referring Family Medicine 07/21/22 Chip Bin Conveyor Tender Relationship Specialty Start Date End Date Harish Garza [address] [place] [address] [place] [address] Referring Family Medicine 07/21/22 Chip Bin Conveyor Tender Relationship Specialty Start Date End Date Alessandra Romero DO [address] [facility] 1 [place] [address] PCP - General Family Medicine 07/20/22 Yuridia Johnson PSA Patient Last Repairer 03/31/22 Chip Bin Conveyor Tender Relationship Specialty Start Date End Date Harish Garza [address] [facility] [address] [place] [address] Referring Family Medicine 07/21/22 Chip Bin Conveyor Tender Relationship Specialty Start Date End Date Harish Garza [address] [facility] [address] [place] [address] Referring Family Medicine 07/21/22 Chip Bin Conveyor Tender Relationship Specialty Start Date End Date Harish Garza [address] [place] [address] Referring Family Medicine 07/21/22 Chip Bin Conveyor Tender Relationship Specialty Start Date End Date Harish Garza [address] [place] [address] Referring Family Medicine 07/21/22 Chip Bin Conveyor Tender Relationship Specialty Start Date End Date Harish Garza [address] [place] [address] Referring Family Medicine 07/21/22 Chip Bin Conveyor Tender Relationship Specialty Start Date End Date Kavita Gama [address] [facility], [id number] PCP - General 10/14/22 Harish Garza [address] [place] [address] Referring Family Medicine 07/21/22 Chip Bin Conveyor Tender Relationship Specialty Start Date End Date Kavita Gama [address] [place] [facility] [address] PCP - General 10/14/22 Harish Garza [address] [place] [address] Referring Family Medicine 07/21/22 Chip Bin Conveyor Tender Relationship Specialty Start Date End Date Kavita Gama [address] [place] [facility] [address] PCP - General 10/14/22 Harish Garza A [address] [place] [address] Referring Family Medicine 07/21/22 Chip Bin Conveyor Tender Relationship Specialty Start Date End Date Kavita Gama APRN - CNP [address] [place] [facility] [address] PCP - General Certified Nurse Practitioner 10/10/22 Chip Bin Conveyor Tender Relationship Specialty Start Date End Date aKvita Gama [address] [place] [facility] [address] PCP - General 10/14/22 Harish Garza A [address] [place] [address] Referring Family Medicine 07/21/22 Chip Bin Conveyor Tender Relationship Specialty Start Date End Date Kavita Gama [address] [place] [facility] [address] PCP - General 10/14/22 Harish Garza A [address] [place] [address] Referring Family Medicine 07/21/22 Chip Bin Conveyor Tender Relationship Specialty Start Date End Date Kavita Gama APRN - RN CARDIOLOGY [address] [place] [facility] [address] PCP - General Certified Nurse Practitioner 10/10/22 Chip Bin Conveyor Tender Relationship Specialty Start Date End Date Kavita Gama APRN - RN CARDIOLOGY [address] [place] [facility] [address] PCP - General Certified Nurse Practitioner 10/10/22 Chip Bin Conveyor Tender Relationship Specialty Start Date End Date Kavita Gama APRN - RN CARDIOLOGY [address] [place] [facility] [address] PCP - General Certified Nurse Practitioner 10/10/22 Chip Bin Conveyor Tender Relationship Specialty Start Date End Date Kavita Gama [address] [place] [facility] [place] [address] PCP - General 10/14/22 Harish Garza [address] [place] [address] Referring Family Medicine 07/21/22 Chip Bin Conveyor Tender Relationship Specialty Start Date End Date Kavita Gama [address] [place] [facility] [place] [address] PCP - General 10/14/22 Harish Garza [address] [place] [address] Referring Family Medicine 07/21/22 Chip Bin Conveyor Tender Relationship Specialty Start Date End Date Kavita Gama [address] [facility], [id number] PCP - General 10/14/22 Harish Garza [address] [place] [address] Referring Family Medicine 07/21/22 Chip Bin Conveyor Tender Relationship Specialty Start Date End Date Kavita Gama Nikki [address] [facility], [id number] PCP - General 10/14/22 Harish Garza [address] [place] [address] Referring Family Medicine 07/21/22 Chip Bin Conveyor Tender Relationship Specialty Start Date End Date Kavita Gama Nikki [address] [place] [facility] [address] PCP - General 10/14/22 Harish Garza [address] [place] [address] Referring Family Medicine 07/21/22 Chip Bin Conveyor Tender Relationship Specialty Start Date End Date Kavita Gama [address] [place] [facility] [address] PCP - General 10/14/22 Harish Garza [facility] [place] [address] Referring Family Medicine 07/21/22 Chip Bin Conveyor Tender Relationship Specialty Start Date End Date Kavita Gama [address] [facility], [id number] PCP - General 10/14/22 Harish Garza [facility] [place] [address] Referring Family Medicine 07/21/22 Chip Bin Conveyor Tender Relationship Specialty Start Date End Date Kavita Gama [address] [place] [address] PCP - General 10/14/22 Harish Garza [facility] [place] [address] Referring Family Medicine 07/21/22 Chip Bin Conveyor Tender Relationship Specialty Start Date End Date Kavita Gama [address] [place] [facility] [address] PCP - General 10/14/22 Harish Garza [address] [place] [address] Referring Family Medicine 07/21/22 Chip Bin Conveyor Tender Relationship Specialty Start Date End Date Kavita Gama [address] [place] [address] PCP - General 10/14/22 Harish Garza [address] [place], [place] [address] Referring Family Medicine 07/21/22 Chip Bin Conveyor Tender Relationship Specialty Start Date End Date Kavita Gama [address] [place] [address] PCP - General 10/14/22 Harish Garza DO [address] [place], [place] [address] Referring Family Medicine 07/21/22 Chip Bin Conveyor Tender Relationship Specialty Start Date End Date Kavita Gama [address] [place] [address] PCP - General 10/14/22 Harish Garza DO [address] [place], [place] [address] Referring Family Medicine 07/21/22 Chip Bin Conveyor Tender Relationship Specialty Start Date End Date Kavita Gama [address] [place] [address] PCP - General 10/14/22 Harish Garza DO [address] [place] [address] Referring Family Medicine 07/21/22 Chip Bin Conveyor Tender Relationship Specialty Start Date End Date Kavita Gama [address] [place] [id number] PCP - General 10/14/22 Harish Garza DO [address] [place] [address] Referring Family Medicine 07/21/22 Chip Bin Conveyor Tender Relationship Specialty Start Date End Date Kavita Gama APRN - RN CARDIOLOGY [address] [place] [id number] PCP - General Certified Nurse Practitioner 10/10/22 Chip Bin Conveyor Tender Relationship Specialty Start Date End Date Kavita Gama APRN.RN CARDIOLOGY [facility] [place] [id number] PCP - General 10/14/22 Harish Garza DO [address] [place] [id number] Referring Family Medicine 07/21/22 Chip Bin Conveyor Tender Relationship Specialty Start Date End Date Kavita Gama APRN.RN CARDIOLOGY [address] [id number] PCP - General 10/14/22 Harish Garza DO [address] [place] [address] 38371 Referring Family Medicine 07/21/22 Chip Bin Conveyor Tender Relationship Specialty Start Date End Date Kavita Gama APRN - RN CARDIOLOGY [address] [id number] PCP - General Certified Nurse Practitioner 10/10/22 Chip Bin Conveyor Tender Relationship Specialty Start Date End Date Kavita Gama APRN.RN CARDIOLOGY [address] [id number] PCP - General 10/14/22 Harish Garza DO [address] [place] [address] 88475 Referring Family Medicine 07/21/22 Chip Bin Conveyor Tender Relationship Specialty Start Date End Date Kavita Gama NUTTER UP.RN CARDIOLOGY [address] [place], [place] [id number] PCP - General 10/14/22 Harish Garza DO [address] [place], [place] [id number] Referring Family Medicine 07/21/22 Chip Bin Conveyor Tender Relationship Specialty Start Date End Date Kavita Gama, NUTTER UP.RN CARDIOLOGY [address] [place], [place] [id number] PCP - General 10/14/22 Harish Garza DO [address] [place], [place] [id number] Referring Family Medicine 07/21/22 Chip Bin Conveyor Tender Relationship Specialty Start Date End Date Kavita Gama NUTTER UP.RN CARDIOLOGY [address] [place] [address] 98356 PCP - General 10/14/22 Harish Garza DO [address] [place] [address] 49232 Referring Family Medicine 07/21/22 Chip Bin Conveyor Tender Relationship Specialty Start Date End Date Kavita Gama NUTTER UP.RN CARDIOLOGY [address] [place], [place] [id number] PCP - General 10/14/22 Harish Garza DO [address] [place], [place] [id number] Referring Family Medicine 07/21/22 Jay Phillips MD [address] [place] [address] [phone] Primary Staff Physician Cardiology 07/27/23 Chip Bin Conveyor Tender Relationship Specialty Start Date End Date Kavita Gama, NUTTER UP.RN CARDIOLOGY [address] [place], [place] [id number] PCP - General 10/14/22 Harish Garza DO [address] [place] [address] Referring Family Medicine 07/21/22 Jay Phillips MD [address] [place], [place] [phone] Primary Staff Physician Cardiology 07/27/23 Chip Bin Conveyor Tender Relationship Specialty Start Date End Date Kavita Gama, NUTTER UP.RN CARDIOLOGY [address] [place], [place] [id number] PCP - General 10/14/22 Harish Garza DO [address] [place], [place] [id number] Referring Family Medicine 07/21/22 Jay Phillips MD [address] [place] [address] 80508 Primary Staff Physician Cardiology 07/27/23 Chip Bin Conveyor Tender Relationship Specialty Start Date End Date Noa Gauthier DO [address] [place] [address] 64013 PCP - General Internal Medicine 08/01/23 Hraish Garza DO [address] [place] [address] Referring Family Medicine 07/21/22 Jay Phillips MD [address] [place] [address] 65900 Primary Staff Physician Cardiology 07/27/23 Chip Bin Conveyor Tender Relationship Specialty Start Date End Date Noa Gauthier DO [address] [place] [address] PCP - General Internal Medicine 08/01/23 Harish Garza DO [address] [place] [address] Referring Family Medicine 07/21/22 Jay Phillips MD [address] [address] Primary Staff Physician Cardiology 07/27/23 Chip Bin Conveyor Tender Relationship Specialty Start Date End Date Noa Gauthier DO [address] [place] [address] 95046 PCP - General Internal Medicine 08/01/23 Harish Garza DO [address] [place] [address] Referring Family Medicine 07/21/22 Jay Phillips MD [address] [address] Primary Staff Physician Cardiology 07/27/23 Chip Bin Conveyor Tender Relationship Specialty Start Date End Date Noa Gauthier DO [address] [place] [address] 44145 PCP - General Internal Medicine 08/01/23 Harish Garza DO [address] [place] [address] Referring Family Medicine 07/21/22 Jay Phillips MD [address] [place] [phone] Primary Staff Physician Cardiology 07/27/23 Chip Bin Conveyor Tender Relationship Specialty Start Date End Date Noa Gauthier DO [address] [place] [address] 44145 PCP - General Internal Medicine 08/01/23 Harish Garza DO [address] [place] [address] Referring Family Medicine 07/21/22 Jay Phillips MD [address] [address] Primary Staff Physician Cardiology 07/27/23 [place], release engineer Private Investigator Surveillance 08/08/23 Chip Bin Conveyor Tender Relationship Specialty Start Date End Date Noa Gauthier DO [address] [place] [address] 44145 PCP - General Internal Medicine 08/01/23 Harish Garza DO [address] [place] [address] Referring Family Medicine 07/21/22 Jay Phillips MD [address] [place] [address] Primary Staff Physician Cardiology 07/27/23 Chip Bin Conveyor Tender Relationship Specialty Start Date End Date Noa Gauthier DO [address] [place] [address] PCP - General Internal Medicine 08/01/23 Harish Garza DO [address] [place] [address] Referring Family Medicine 07/21/22 Jay Phillips MD [address] [place] [address] Primary Staff Physician Cardiology 07/27/23 [place], release engineer Private Investigator Surveillance 08/08/23 Chip Bin Conveyor Tender Relationship Specialty Start Date End Date Noa Gauthier DO [address] [place], [place] [phone] PCP - General Internal Medicine 08/01/23 Harish Garza DO [address] [place] [address] Referring Family Medicine 07/21/22 Jay Phillips MD [address] [place] [address] 52683 Primary Staff Physician Cardiology 07/27/23 [place], release engineer Private Investigator Surveillance 08/08/23 Chip Bin Conveyor Tender Relationship Specialty Start Date End Date Noa Gauthier DO [address] [place] [address] 47218 PCP - General Internal Medicine 08/01/23 Harish Garza DO [address] [place], [place] [id number] Referring Family Medicine 07/21/22 Jay Phillips MD [address] [place], [place] [phone] Primary Staff Physician Cardiology 07/27/23 [place], release engineer Private Investigator Surveillance 08/08/23 Chip Bin Conveyor Tender Relationship Specialty Start Date End Date Noa Gauthier DO [address] [place] [address] 95824 PCP - General Internal Medicine 08/01/23 Harish Garza DO [address] [place], [place] [id number] Referring Family Medicine 07/21/22 Jay Phillips MD [address] [address] Primary Staff Physician Cardiology 07/27/23 [place], release engineer Private Investigator Surveillance 08/08/23 Chip Bin Conveyor Tender Relationship Specialty Start Date End Date Noa Gauthier DO [address] [place] [address] [phone] PCP - General Internal Medicine 08/01/23 Harish Garza DO [address] [place] [address] Referring Family Medicine 07/21/22 Jay Phillips MD [address] [address] Primary Staff Physician Cardiology 07/27/23 [place], release engineer Private Investigator Surveillance 08/08/23 Chip Bin Conveyor Tender Relationship Specialty Start Date End Date Noa Gauthier DO [address] [place] [address] PCP - General Internal Medicine 08/01/23 Harish Garza DO [address] [place] [address] Referring Family Medicine 07/21/22 Jay Phillips MD [address] [place] [address] Primary Staff Physician Cardiology 07/27/23 [place], release engineer Private Investigator Surveillance 08/08/23 Chip Bin Conveyor Tender Relationship Specialty Start Date End Date Noa Gauthier DO [address] [place] [address] PCP - General Internal Medicine 08/01/23 Harish Garza DO [address] [place] [address] Referring Family Medicine 07/21/22 Jay Phillips MD [address] [place] [address] 75778 Primary Staff Physician Cardiology 07/27/23 [place], release engineer Private Investigator Surveillance 08/08/23 Chip Bin Conveyor Tender Relationship Specialty Start Date End Date Noa Gauthier DO [address] [place] [address] [phone] PCP - General Internal Medicine 08/01/23 Harish Garza DO [address] [place] [address] 27626 Referring Family Medicine 07/21/22 aJy Phillips MD [address] [place] [address] [phone] Primary Staff Physician Cardiology 07/27/23 Chip Bin Conveyor Tender Relationship Specialty Start Date End Date Noa Gauthier DO [address] [place] [address] 24665 PCP - General Internal Medicine 08/01/23 Harish Garza DO [address] [place] [address] 22278 Referring Family Medicine 07/21/22 Jay Phillips MD [address] [place] [address] [phone] Primary Staff Physician Cardiology 07/27/23 Chip Bin Conveyor Tender Relationship Specialty Start Date End Date Noa Gauthier DO [address] [place] [address] 32550 PCP - General Internal Medicine 08/01/23 Harish Garza DO [address] [place], [place] 2408612 Referring Family Medicine 07/21/22 Jay Phillips MD [address] [place] [address] [phone] Primary Staff Physician Cardiology 07/27/23 Chip Bin Conveyor Tender Relationship Specialty Start Date End Date Noa Gauthier DO [address] [place] [address] 74713 PCP - General Internal Medicine 08/01/23 Harish Garza DO [address] [place] [address] Referring Family Medicine 07/21/22 Jay Phillips MD [address] [place], [place] [phone] Primary Staff Physician Cardiology 07/27/23 Chip Bin Conveyor Tender Relationship Specialty Start Date End Date Noa Gauthier DO [address] [place] [address] 09537 PCP - General Internal Medicine 08/01/23 Harish Garza DO [address] [place] [address] 51612 Referring Family Medicine 07/21/22 Jay Phillips MD [address] [place] [address] [phone] Primary Staff Physician Cardiology 07/27/23 Chip Bin Conveyor Tender Relationship Specialty Start Date End Date Noa Gauthier DO [address] [place] [address] 94908 PCP - General Internal Medicine 08/01/23 Harish Garza DO [address] [place] [address] 43635 Referring Family Medicine 07/21/22 Jay Phillips MD [address] [place] [address] Primary Staff Physician Cardiology 07/27/23 Chip Bin Conveyor Tender Relationship Specialty Start Date End Date Noa Gauthier DO [address] [place] [address] 74689 PCP - General Internal Medicine 08/01/23 Harish Garza DO [address] [place], [place] [phone] Referring Family Medicine 07/21/22 Jay Phillips MD [address] [place] [address] Primary Staff Physician Cardiology 07/27/23 [place], release engineer Private Investigator Surveillance 08/08/23 09/06/23 Chip Bin Conveyor Tender Relationship Specialty Start Date End Date Noa Gauthier DO [address] [place] [address] 45342 PCP - General Internal Medicine 08/01/23 Harish Garza DO [address] [place] [address] 14262 Referring Family Medicine 07/21/22 Jay Phillips MD [address] [place] [address] [phone] Primary Staff Physician Cardiology 07/27/23 Chip Bin Conveyor Tender Relationship Specialty Start Date End Date Noa Gauthier DO [address] [place] [address] [phone] PCP - General Internal Medicine 08/01/23 Harish Garza DO [address] [place] [address] 69940 Referring Family Medicine 07/21/22 Jay Phillips MD [address] [place] [address] [phone] Primary Staff Physician Cardiology 07/27/23 Chip Bin Conveyor Tender Relationship Specialty Start Date End Date Noa Gauthier DO [address] [place] [address] [phone] PCP - General Internal Medicine 08/01/23 Harish Garza DO [address] [place] [address] 24650 Referring Family Medicine 07/21/22 Jay Phillips MD [address] [place] [address] 15611 Primary Staff Physician Cardiology 07/27/23 Chip Bin Conveyor Tender Relationship Specialty Start Date End Date Noa Gauthier DO [address] [place] [address] 09352 PCP - General Internal Medicine 08/01/23 Harish Garza DO [address] [place] [address] 19598 Referring Family Medicine 07/21/22 Jay Phillips MD [address] [place] [address] [phone] Primary Staff Physician Cardiology 07/27/23 Chip Bin Conveyor Tender Relationship Specialty Start Date End Date Noa Gauthier DO [address] [place] [address] 96434 PCP - General Internal Medicine 08/01/23 Harish Garza DO [address] [place] [address] Referring Family Medicine 07/21/22 Jay Phillips MD [address] [place] [address] 04491 Primary Staff Physician Cardiology 07/27/23 Chip Bin Conveyor Tender Relationship Specialty Start Date End Date Noa Gauthier DO [address] [place] [address] 51895 PCP - General Internal Medicine 08/01/23 Harish Garza DO [address] [place], [place] [phone] Referring Family Medicine 07/21/22 Jay Phillips MD [address] [address] Primary Staff Physician Cardiology 07/27/23 Chip Bin Conveyor Tender Relationship Specialty Start Date End Date Noa Gauthier DO [address] [place], [place] [phone] PCP - General Internal Medicine 08/01/23 Harish Garza DO [address] [place] [address] Referring Family Medicine 07/21/22 Jay Phillips MD [address] [address] Primary Staff Physician Cardiology 07/27/23 Chip Bin Conveyor Tender Relationship Specialty Start Date End Date Noa Gauthier DO [address] [place], [place] [phone] PCP - General Internal Medicine 08/01/23 Harish Garza DO [address] [place] [address] Referring Family Medicine 07/21/22 Jay Phillips MD [address] [place] [phone] Primary Staff Physician Cardiology 07/27/23 Chip Bin Conveyor Tender Relationship Specialty Start Date End Date Noa Gauthier DO [address] [place], [place] [phone] PCP - General Internal Medicine 08/01/23 Harish Garza DO [address] [place] [address] Referring Family Medicine 07/21/22 Jay Phillips MD [address] [address] Primary Staff Physician Cardiology 07/27/23 Chip Bin Conveyor Tender Relationship Specialty Start Date End Date Noa Gauthier DO [address] [place] [address] 95035 PCP - General Internal Medicine 08/01/23 Harish Garza DO [address] [place] [address] Referring Family Medicine 07/21/22 Jay Phillips MD [address] [place], [place] [phone] Primary Staff Physician Cardiology 07/27/23 Chip Bin Conveyor Tender Relationship Specialty Start Date End Date Noa Gauthier DO [address] [place] [address] PCP - General Internal Medicine 08/01/23 Harish Garza DO [address] [place] [address] Referring Family Medicine 07/21/22 Jay Phillips MD [address] [address] Primary Staff Physician Cardiology 07/27/23 Chip Bin Conveyor Tender Relationship Specialty Start Date End Date Noa Gauthier DO [address] [place] [address] 53931 PCP - General Internal Medicine 08/01/23 Harish Garza DO [address] [place] [address] Referring Family Medicine 07/21/22 Jay Phillips MD [address] [address] Primary Staff Physician Cardiology 07/27/23 Chip Bin Conveyor Tender Relationship Specialty Start Date End Date Noa Gauthier DO [address] [place], [place] [phone] PCP - General Internal Medicine 08/01/23 Harish Garza DO [address] [place] [address] Referring Family Medicine 07/21/22 Jay Phillips MD [address] [place] [phone] Primary Staff Physician Cardiology 07/27/23 Chip Bin Conveyor Tender Relationship Specialty Start Date End Date Noa Gauthier DO [address] [place], [place] [phone] PCP - General Internal Medicine 08/01/23 Harish Garza DO [address] [place] [address] Referring Family Medicine 07/21/22 Jay Phillips MD [address] [address] Primary Staff Physician Cardiology 07/27/23 Chip Bin Conveyor Tender Relationship Specialty Start Date End Date Noa Gauthier DO [address] [place] [address] 85137 PCP - General Internal Medicine 08/01/23 Harish Garza DO [address] [place] [address] Referring Family Medicine 07/21/22 Jay Phillips MD [address] [place] [phone] Primary Staff Physician Cardiology 07/27/23 Chip Bin Conveyor Tender Relationship Specialty Start Date End Date Noa Gauthier DO [address] [place], [place] [phone] PCP - General Internal Medicine 08/01/23 Harish Garza DO [address] [place] [address] Referring Family Medicine 07/21/22 Jay Phillips MD [address] [place], [place] [phone] Primary Staff Physician Cardiology 07/27/23 Chip Bin Conveyor Tender Relationship Specialty Start Date End Date Noa Gauthier DO [address] [place] [address] PCP - General Internal Medicine 08/01/23 Harish Garza DO [address] [place], [place] [phone] Referring Family Medicine 07/21/22 Jay Phillips MD [address] [place] [address] Primary Staff Physician Cardiology 07/27/23 Source Comments (unrecognize d section and content) In the event this informatio n is protected by the Federal Confidentiality of Alcohol and Drug Abuse Patient Records regulations: The Federal rules restrict any use of the information to criminally investigate or prosecute any alcohol or drug abuse patient.[facility] Hospital[facility] the event this information is protected by the Federal Confidentiality of Alcohol and Drug Abuse Patient Records regulations: The Federal rules restrict any use of the information to criminally investigate or prosecute any alcohol or drug abuse patient.[facility] HospitalIn the event this information is protected by the Federal Confidentiality of Alcohol and Drug Abuse Patient Records regulations: The Federal rules restrict any use of the information to criminally investigate or prosecute any alcohol or drug abuse patient.[facility] HospitalIn the event this information is protected by the Federal Confidentiality of Alcohol and Drug Abuse Patient Records regulations: The Federal rules restrict any use of the information to criminally investigate or prosecute any alcohol or drug abuse patient.[facility] HospitalIn the event this information is protected by the Federal Confidentiality of Alcohol and Drug Abuse Patient Records regulations: The Federal rules restrict any use of the information to criminally investigate or prosecute any alcohol or drug abuse patient.[facility] HospitalIn the event this information is protected by the Federal Confidentiality of Alcohol and Drug Abuse Patient Records regulations: The Federal rules restrict any use of the information to criminally investigate or prosecute any alcohol or drug abuse patient.[facility] HospitalIn the event this information is protected by the Federal Confidentiality of Alcohol and Drug Abuse Patient Records regulations: The Federal rules restrict any use of the information to criminally investigate or prosecute any alcohol or drug abuse patient.[facility] HospitalIn the event this information is protected by the Federal Confidentiality of Alcohol and Drug Abuse Patient Records regulations: The Federal rules restrict any use of the information to criminally investigate or prosecute any alcohol or drug abuse patient.[facility] HospitalIn the event this information is protected by the Federal Confidentiality of Alcohol and Drug Abuse Patient Records regulations: The Federal rules restrict any use of the information to criminally investigate or prosecute any alcohol or drug abuse patient.[facility] HospitalIn the event this information is protected by the Federal Confidentiality of Alcohol and Drug Abuse Patient Records regulations: The Federal rules restrict any use of the information to criminally investigate or prosecute any alcohol or drug abuse patient.[facility] HospitalIn the event this information is protected by the Federal Confidentiality of Alcohol and Drug Abuse Patient Records regulations: The Federal rules restrict any use of the information to criminally investigate or prosecute any alcohol or drug abuse patient.[facility] HospitalIn the event this information is protected by the Federal Confidentiality of Alcohol and Drug Abuse Patient Records regulations: The Federal rules restrict any use of the information to criminally investigate or prosecute any alcohol or drug abuse patient.[facility] HospitalIn the event this information is protected by the Federal Confidentiality of Alcohol and Drug Abuse Patient Records regulations: The Federal rules restrict any use of the information to criminally investigate or prosecute any alcohol or drug abuse patient.[facility] HospitalIn the event this information is protected by the Federal Confidentiality of Alcohol and Drug Abuse Patient Records regulations: The Federal rules restrict any use of the information to criminally investigate or prosecute any alcohol or drug abuse patient.[facility] HospitalIn the event this information is protected by the Federal Confidentiality of Alcohol and Drug Abuse Patient Records regulations: The Federal rules restrict any use of the information to criminally investigate or prosecute any alcohol or drug abuse patient.[facility] HospitalIn the event this information is protected by the Federal Confidentiality of Alcohol and Drug Abuse Patient Records regulations: The Federal rules restrict any use of the information to criminally investigate or prosecute any alcohol or drug abuse patient.[facility] HospitalIn the event this information is protected by the Federal Confidentiality of Alcohol and Drug Abuse Patient Records regulations: The Federal rules restrict any use of the information to criminally investigate or prosecute any alcohol or drug abuse patient.[facility] HospitalIn the event this information is protected by the Federal Confidentiality of Alcohol and Drug Abuse Patient Records regulations: The Federal rules restrict any use of the information to criminally investigate or prosecute any alcohol or drug abuse patient.[facility] HospitalIn the event this information is protected by the Federal Confidentiality of Alcohol and Drug Abuse Patient Records regulations: The Federal rules restrict any use of the information to criminally investigate or prosecute any alcohol or drug abuse patient.[facility] HospitalIn the event this information is protected by the Federal Confidentiality of Alcohol and Drug Abuse Patient Records regulations: The Federal rules restrict any use of the information to criminally investigate or prosecute any alcohol or drug abuse patient.[facility] the event this information is protected by the Federal Confidentiality of Alcohol and Drug Abuse Patient Records regulations: The Federal rules restrict any use of the information to criminally investigate or prosecute any alcohol or drug abuse patient.[facility] HospitalIn the event this information is protected by the Federal Confidentiality of Alcohol and Drug Abuse Patient Records regulations: The Federal rules restrict any use of the information to criminally investigate or prosecute any alcohol or drug abuse patient.[facility] HospitalIn the event this information is protected by the Federal Confidentiality of Alcohol and Drug Abuse Patient Records regulations: The Federal rules restrict any use of the information to criminally investigate or prosecute any alcohol or drug abuse patient.[facility] the event this information is protected by the Federal Confidentiality of Alcohol and Drug Abuse Patient Records regulations: The Federal rules restrict any use of the information to criminally investigate or prosecute any alcohol or drug abuse patient.[facility] HospitalIn the event this information is protected by the Federal Confidentiality of Alcohol and Drug Abuse Patient Records regulations: The Federal rules restrict any use of the information to criminally investigate or prosecute any alcohol or drug abuse patient.[facility] HospitalIn the event this information is protected by the Federal Confidentiality of Alcohol and Drug Abuse Patient Records regulations: The Federal rules restrict any use of the information to criminally investigate or prosecute any alcohol or drug abuse patient.[facility] HospitalIn the event this information is protected by the Federal Confidentiality of Alcohol and Drug Abuse Patient Records regulations: The Federal rules restrict any use of the information to criminally investigate or prosecute any alcohol or drug abuse patient.[facility] HospitalIn the event this information is protected by the Federal Confidentiality of Alcohol and Drug Abuse Patient Records regulations: The Federal rules restrict any use of the information to criminally investigate or prosecute any alcohol or drug abuse patient.[facility] HospitalIn the event this information is protected by the Federal Confidentiality of Alcohol and Drug Abuse Patient Records regulations: The Federal rules restrict any use of the information to criminally investigate or prosecute any alcohol or drug abuse patient.[facility] HospitalIn the event this information is protected by the Federal Confidentiality of Alcohol and Drug Abuse Patient Records regulations: The Federal rules restrict any use of the information to criminally investigate or prosecute any alcohol or drug abuse patient.[facility] HospitalIn the event this information is protected by the Federal Confidentiality of Alcohol and Drug Abuse Patient Records regulations: The Federal rules restrict any use of the information to criminally investigate or prosecute any alcohol or drug abuse patient.[facility] HospitalIn the event this information is protected by the Federal Confidentiality of Alcohol and Drug Abuse Patient Records regulations: The Federal rules restrict any use of the information to criminally investigate or prosecute any alcohol or drug abuse patient.[facility] HospitalIn the event this information is protected by the Federal Confidentiality of Alcohol and Drug Abuse Patient Records regulations: The Federal rules restrict any use of the information to criminally investigate or prosecute any alcohol or drug abuse patient.[facility] HospitalIn the event this information is protected by the Federal Confidentiality of Alcohol and Drug Abuse Patient Records regulations: The Federal rules restrict any use of the information to criminally investigate or prosecute any alcohol or drug abuse patient.[facility] HospitalIn the event this information is protected by the Federal Confidentiality of Alcohol and Drug Abuse Patient Records regulations: The Federal rules restrict any use of the information to criminally investigate or prosecute any alcohol or drug abuse patient.[facility] HospitalIn the event this information is protected by the Federal Confidentiality of Alcohol and Drug Abuse Patient Records regulations: The Federal rules restrict any use of the information to criminally investigate or prosecute any alcohol or drug abuse patient.[facility] HospitalIn the event this information is protected by the Federal Confidentiality of Alcohol and Drug Abuse Patient Records regulations: The Federal rules restrict any use of the information to criminally investigate or prosecute any alcohol or drug abuse patient.[facility] HospitalIn the event this information is protected by the Federal Confidentiality of Alcohol and Drug Abuse Patient Records regulations: The Federal rules restrict any use of the information to criminally investigate or prosecute any alcohol or drug abuse patient.[facility] HospitalIn the event this information is protected by the Federal Confidentiality of Alcohol and Drug Abuse Patient Records regulations: The Federal rules restrict any use of the information to criminally investigate or prosecute any alcohol or drug abuse patient.[facility] HospitalIn the event this information is protected by the Federal Confidentiality of Alcohol and Drug Abuse Patient Records regulations: The Federal rules restrict any use of the information to criminally investigate or prosecute any alcohol or drug abuse patient.[facility] HospitalIn the event this information is protected by the Federal Confidentiality of Alcohol and Drug Abuse Patient Records regulations: The Federal rules restrict any use of the information to criminally investigate or prosecute any alcohol or drug abuse patient.[facility] HospitalIn the event this information is protected by the Federal Confidentiality of Alcohol and Drug Abuse Patient Records regulations: The Federal rules restrict any use of the information to criminally investigate or prosecute any alcohol or drug abuse patient.[facility] HospitalIn the event this information is protected by the Federal Confidentiality of Alcohol and Drug Abuse Patient Records regulations: The Federal rules restrict any use of the information to criminally investigate or prosecute any alcohol or drug abuse patient.[facility] HospitalIn the event this information is protected by the Federal Confidentiality of Alcohol and Drug Abuse Patient Records regulations: The Federal rules restrict any use of the information to criminally investigate or prosecute any alcohol or drug abuse patient.[facility] HospitalIn the event this information is protected by the Federal Confidentiality of Alcohol and Drug Abuse Patient Records regulations: The Federal rules restrict any use of the information to criminally investigate or prosecute any alcohol or drug abuse patient.[facility] HospitalIn the event this information is protected by the Federal Confidentiality of Alcohol and Drug Abuse Patient Records regulations: The Federal rules restrict any use of the information to criminally investigate or prosecute any alcohol or drug abuse patient.[facility] HospitalIn the event this information is protected by the Federal Confidentiality of Alcohol and Drug Abuse Patient Records regulations: The Federal rules restrict any use of the information to criminally investigate or prosecute any alcohol or drug abuse patient.[facility] HospitalIn the event this information is protected by the Federal Confidentiality of Alcohol and Drug Abuse Patient Records regulations: The Federal rules restrict any use of the information to criminally investigate or prosecute any alcohol or drug abuse patient.[facility] HospitalIn the event this information is protected by the Federal Confidentiality of Alcohol and Drug Abuse Patient Records regulations: The Federal rules restrict any use of the information to criminally investigate or prosecute any alcohol or drug abuse patient.[facility] HospitalIn the event this information is protected by the Federal Confidentiality of Alcohol and Drug Abuse Patient Records regulations: The Federal rules restrict any use of the information to criminally investigate or prosecute any alcohol or drug abuse patient.[facility] HospitalIn the event this information is protected by the Federal Confidentiality of Alcohol and Drug Abuse Patient Records regulations: The Federal rules restrict any use of the information to criminally investigate or prosecute any alcohol or drug abuse patient.[facility] HospitalIn the event this information is protected by the Federal Confidentiality of Alcohol and Drug Abuse Patient Records regulations: The Federal rules restrict any use of the information to criminally investigate or prosecute any alcohol or drug abuse patient.[facility] HospitalIn the event this information is protected by the Federal Confidentiality of Alcohol and Drug Abuse Patient Records regulations: The Federal rules restrict any use of the information to criminally investigate or prosecute any alcohol or drug abuse patient.[facility] HospitalIn the event this information is protected by the Federal Confidentiality of Alcohol and Drug Abuse Patient Records regulations: The Federal rules restrict any use of the information to criminally investigate or prosecute any alcohol or drug abuse patient.[facility] HospitalIn the event this information is protected by the Federal Confidentiality of Alcohol and Drug Abuse Patient Records regulations: The Federal rules restrict any use of the information to criminally investigate or prosecute any alcohol or drug abuse patient.[facility] HospitalIn the event this information is protected by the Federal Confidentiality of Alcohol and Drug Abuse Patient Records regulations: The Federal rules restrict any use of the information to criminally investigate or prosecute any alcohol or drug abuse patient.[facility] HospitalIn the event this information is protected by the Federal Confidentiality of Alcohol and Drug Abuse Patient Records regulations: The Federal rules restrict any use of the information to criminally investigate or prosecute any alcohol or drug abuse patient.[facility] HospitalIn the event this information is protected by the Federal Confidentiality of Alcohol and Drug Abuse Patient Records regulations: The Federal rules restrict any use of the information to criminally investigate or prosecute any alcohol or drug abuse patient.[facility] HospitalIn the event this information is protected by the Federal Confidentiality of Alcohol and Drug Abuse Patient Records regulations: The Federal rules restrict any use of the information to criminally investigate or prosecute any alcohol or drug abuse patient.[facility] HospitalIn the event this information is protected by the Federal Confidentiality of Alcohol and Drug Abuse Patient Records regulations: The Federal rules restrict any use of the information to criminally investigate or prosecute any alcohol or drug abuse patient.[facility] HospitalIn the event this information is protected by the Federal Confidentiality of Alcohol and Drug Abuse Patient Records regulations: The Federal rules restrict any use of the information to criminally investigate or prosecute any alcohol or drug abuse patient.[facility] HospitalIn the event this information is protected by the Federal Confidentiality of Alcohol and Drug Abuse Patient Records regulations: The Federal rules restrict any use of the information to criminally investigate or prosecute any alcohol or drug abuse patient.[facility] HospitalIn the event this information is protected by the Federal Confidentiality of Alcohol and Drug Abuse Patient Records regulations: The Federal rules restrict any use of the information to criminally investigate or prosecute any alcohol or drug abuse patient.[facility] HospitalIn the event this information is protected by the Federal Confidentiality of Alcohol and Drug Abuse Patient Records regulations: The Federal rules restrict any use of the information to criminally investigate or prosecute any alcohol or drug abuse patient.[facility] HospitalIn the event this information is protected by the Federal Confidentiality of Alcohol and Drug Abuse Patient Records regulations: The Federal rules restrict any use of the information to criminally investigate or prosecute any alcohol or drug abuse patient.[facility] HospitalIn the event this information is protected by the Federal Confidentiality of Alcohol and Drug Abuse Patient Records regulations: The Federal rules restrict any use of the information to criminally investigate or prosecute any alcohol or drug abuse patient.[facility] HospitalIn the event this information is protected by the Federal Confidentiality of Alcohol and Drug Abuse Patient Records regulations: The Federal rules restrict any use of the information to criminally investigate or prosecute any alcohol or drug abuse patient.[facility] HospitalIn the event this information is protected by the Federal Confidentiality of Alcohol and Drug Abuse Patient Records regulations: The Federal rules restrict any use of the information to criminally investigate or prosecute any alcohol or drug abuse patient.[facility] HospitalIn the event this information is protected by the Federal Confidentiality of Alcohol and Drug Abuse Patient Records regulations: The Federal rules restrict any use of the information to criminally investigate or prosecute any alcohol or drug abuse patient.[facility] HospitalIn the event this information is protected by the Federal Confidentiality of Alcohol and Drug Abuse Patient Records regulations: The Federal rules restrict any use of the information to criminally investigate or prosecute any alcohol or drug abuse patient.[facility] the event this information is protected by the Federal Confidentiality of Alcohol and Drug Abuse Patient Records regulations: The Federal rules restrict any use of the information to criminally investigate or prosecute any alcohol or drug abuse patient.[facility] HospitalIn the event this information is protected by the Federal Confidentiality of Alcohol and Drug Abuse Patient Records regulations: The Federal rules restrict any use of the information to criminally investigate or prosecute any alcohol or drug abuse patient.[facility] HospitalIn the event this information is protected by the Federal Confidentiality of Alcohol and Drug Abuse Patient Records regulations: The Federal rules restrict any use of the information to criminally investigate or prosecute any alcohol or drug abuse patient.[facility] the event this information is protected by the Federal Confidentiality of Alcohol and Drug Abuse Patient Records regulations: The Federal rules restrict any use of the information to criminally investigate or prosecute any alcohol or drug abuse patient.[facility] HospitalIn the event this information is protected by the Federal Confidentiality of Alcohol and Drug Abuse Patient Records regulations: The Federal rules restrict any use of the information to criminally investigate or prosecute any alcohol or drug abuse patient.[facility] HospitalIn the event this information is protected by the Federal Confidentiality of Alcohol and Drug Abuse Patient Records regulations: The Federal rules restrict any use of the information to criminally investigate or prosecute any alcohol or drug abuse patient.[facility] HospitalIn the event this information is protected by the Federal Confidentiality of Alcohol and Drug Abuse Patient Records regulations: The Federal rules restrict any use of the information to criminally investigate or prosecute any alcohol or drug abuse patient.[facility] HospitalIn the event this information is protected by the Federal Confidentiality of Alcohol and Drug Abuse Patient Records regulations: The Federal rules restrict any use of the information to criminally investigate or prosecute any alcohol or drug abuse patient.[facility] HospitalIn the event this information is protected by the Federal Confidentiality of Alcohol and Drug Abuse Patient Records regulations: The Federal rules restrict any use of the information to criminally investigate or prosecute any alcohol or drug abuse patient.[facility] HospitalIn the event this information is protected by the Federal Confidentiality of Alcohol and Drug Abuse Patient Records regulations: The Federal rules restrict any use of the information to criminally investigate or prosecute any alcohol or drug abuse patient.[facility] HospitalIn the event this information is protected by the Federal Confidentiality of Alcohol and Drug Abuse Patient Records regulations: The Federal rules restrict any use of the information to criminally investigate or prosecute any alcohol or drug abuse patient.[facility] HospitalIn the event this information is protected by the Federal Confidentiality of Alcohol and Drug Abuse Patient Records regulations: The Federal rules restrict any use of the information to criminally investigate or prosecute any alcohol or drug abuse patient.[facility] HospitalIn the event this information is protected by the Federal Confidentiality of Alcohol and Drug Abuse Patient Records regulations: The Federal rules restrict any use of the information to criminally investigate or prosecute any alcohol or drug abuse patient.[facility] HospitalIn the event this information is protected by the Federal Confidentiality of Alcohol and Drug Abuse Patient Records regulations: The Federal rules restrict any use of the information to criminally investigate or prosecute any alcohol or drug abuse patient.[facility] HospitalIn the event this information is protected by the Federal Confidentiality of Alcohol and Drug Abuse Patient Records regulations: The Federal rules restrict any use of the information to criminally investigate or prosecute any alcohol or drug abuse patient.[facility] HospitalIn the event this information is protected by the Federal Confidentiality of Alcohol and Drug Abuse Patient Records regulations: The Federal rules restrict any use of the information to criminally investigate or prosecute any alcohol or drug abuse patient.[facility] HospitalIn the event this information is protected by the Federal Confidentiality of Alcohol and Drug Abuse Patient Records regulations: The Federal rules restrict any use of the information to criminally investigate or prosecute any alcohol or drug abuse patient.[facility] HospitalIn the event this information is protected by the Federal Confidentiality of Alcohol and Drug Abuse Patient Records regulations: The Federal rules restrict any use of the information to criminally investigate or prosecute any alcohol or drug abuse patient.[facility] HospitalIn the event this information is protected by the Federal Confidentiality of Alcohol and Drug Abuse Patient Records regulations: The Federal rules restrict any use of the information to criminally investigate or prosecute any alcohol or drug abuse patient.[facility] HospitalIn the event this information is protected by the Federal Confidentiality of Alcohol and Drug Abuse Patient Records regulations: The Federal rules restrict any use of the information to criminally investigate or prosecute any alcohol or drug abuse patient.[facility] HospitalIn the event this information is protected by the Federal Confidentiality of Alcohol and Drug Abuse Patient Records regulations: The Federal rules restrict any use of the information to criminally investigate or prosecute any alcohol or drug abuse patient.[facility] HospitalIn the event this information is protected by the Federal Confidentiality of Alcohol and Drug Abuse Patient Records regulations: The Federal rules restrict any use of the information to criminally investigate or prosecute any alcohol or drug abuse patient.[facility] HospitalIn the event this information is protected by the Federal Confidentiality of Alcohol and Drug Abuse Patient Records regulations: The Federal rules restrict any use of the information to criminally investigate or prosecute any alcohol or drug abuse patient.[facility] HospitalIn the event this information is protected by the Federal Confidentiality of Alcohol and Drug Abuse Patient Records regulations: The Federal rules restrict any use of the information to criminally investigate or prosecute any alcohol or drug abuse patient.[facility] HospitalIn the event this information is protected by the Federal Confidentiality of Alcohol and Drug Abuse Patient Records regulations: The Federal rules restrict any use of the information to criminally investigate or prosecute any alcohol or drug abuse patient.[facility] HospitalIn the event this information is protected by the Federal Confidentiality of Alcohol and Drug Abuse Patient Records regulations: The Federal rules restrict any use of the information to criminally investigate or prosecute any alcohol or drug abuse patient.[facility] HospitalIn the event this information is protected by the Federal Confidentiality of Alcohol and Drug Abuse Patient Records regulations: The Federal rules restrict any use of the information to criminally investigate or prosecute any alcohol or drug abuse patient.[facility] HospitalIn the event this information is protected by the Federal Confidentiality of Alcohol and Drug Abuse Patient Records regulations: The Federal rules restrict any use of the information to criminally investigate or prosecute any alcohol or drug abuse patient.[facility] HospitalIn the event this information is protected by the Federal Confidentiality of Alcohol and Drug Abuse Patient Records regulations: The Federal rules restrict any use of the information to criminally investigate or prosecute any alcohol or drug abuse patient.[facility] HospitalIn the event this information is protected by the Federal Confidentiality of Alcohol and Drug Abuse Patient Records regulations: The Federal rules restrict any use of the information to criminally investigate or prosecute any alcohol or drug abuse patient.[facility] HospitalIn the event this information is protected by the Federal Confidentiality of Alcohol and Drug Abuse Patient Records regulations: The Federal rules restrict any use of the information to criminally investigate or prosecute any alcohol or drug abuse patient.[facility] HospitalIn the event this information is protected by the Federal Confidentiality of Alcohol and Drug Abuse Patient Records regulations: The Federal rules restrict any use of the information to criminally investigate or prosecute any alcohol or drug abuse patient.[facility] HospitalIn the event this information is protected by the Federal Confidentiality of Alcohol and Drug Abuse Patient Records regulations: The Federal rules restrict any use of the information to criminally investigate or prosecute any alcohol or drug abuse patient.[facility] HospitalIn the event this information is protected by the Federal Confidentiality of Alcohol and Drug Abuse Patient Records regulations: The Federal rules restrict any use of the information to criminally investigate or prosecute any alcohol or drug abuse patient.[facility] HospitalIn the event this information is protected by the Federal Confidentiality of Alcohol and Drug Abuse Patient Records regulations: The Federal rules restrict any use of the information to criminally investigate or prosecute any alcohol or drug abuse patient.[facility] HospitalIn the event this information is protected by the Federal Confidentiality of Alcohol and Drug Abuse Patient Records regulations: The Federal rules restrict any use of the information to criminally investigate or prosecute any alcohol or drug abuse patient.[facility] HospitalIn the event this information is protected by the Federal Confidentiality of Alcohol and Drug Abuse Patient Records regulations: The Federal rules restrict any use of the information to criminally investigate or prosecute any alcohol or drug abuse patient.[facility] HospitalIn the event this information is protected by the Federal Confidentiality of Alcohol and Drug Abuse Patient Records regulations: The Federal rules restrict any use of the information to criminally investigate or prosecute any alcohol or drug abuse patient.[facility] HospitalIn the event this information is protected by the Federal Confidentiality of Alcohol and Drug Abuse Patient Records regulations: The Federal rules restrict any use of the information to criminally investigate or prosecute any alcohol or drug abuse patient.[facility] HospitalIn the event this information is protected by the Federal Confidentiality of Alcohol and Drug Abuse Patient Records regulations: The Federal rules restrict any use of the information to criminally investigate or prosecute any alcohol or drug abuse patient.[facility] HospitalIn the event this information is protected by the Federal Confidentiality of Alcohol and Drug Abuse Patient Records regulations: The Federal rules restrict any use of the information to criminally investigate or prosecute any alcohol or drug abuse patient.[facility] HospitalIn the event this information is protected by the Federal Confidentiality of Alcohol and Drug Abuse Patient Records regulations: The Federal rules restrict any use of the information to criminally investigate or prosecute any alcohol or drug abuse patient.[facility] HospitalIn the event this information is protected by the Federal Confidentiality of Alcohol and Drug Abuse Patient Records regulations: The Federal rules restrict any use of the information to criminally investigate or prosecute any alcohol or drug abuse patient.[facility] HospitalIn the event this information is protected by the Federal Confidentiality of Alcohol and Drug Abuse Patient Records regulations: The Federal rules restrict any use of the information to criminally investigate or prosecute any alcohol or drug abuse patient.[facility] HospitalIn the event this information is protected by the Federal Confidentiality of Alcohol and Drug Abuse Patient Records regulations: The Federal rules restrict any use of the information to criminally investigate or prosecute any alcohol or drug abuse patient.[facility] HospitalIn the event this information is protected by the Federal Confidentiality of Alcohol and Drug Abuse Patient Records regulations: The Federal rules restrict any use of the information to criminally investigate or prosecute any alcohol or drug abuse patient.[facility] HospitalIn the event this information is protected by the Federal Confidentiality of Alcohol and Drug Abuse Patient Records regulations: The Federal rules restrict any use of the information to criminally investigate or prosecute any alcohol or drug abuse patient.[facility] HospitalIn the event this information is protected by the Federal Confidentiality of Alcohol and Drug Abuse Patient Records regulations: The Federal rules restrict any use of the information to criminally investigate or prosecute any alcohol or drug abuse patient.[facility] HospitalIn the event this information is protected by the Federal Confidentiality of Alcohol and Drug Abuse Patient Records regulations: The Federal rules restrict any use of the information to criminally investigate or prosecute any alcohol or drug abuse patient.[facility] HospitalIn the event this information is protected by the Federal Confidentiality of Alcohol and Drug Abuse Patient Records regulations: The Federal rules restrict any use of the information to criminally investigate or prosecute any alcohol or drug abuse patient.[facility] the event this information is protected by the Federal Confidentiality of Alcohol and Drug Abuse Patient Records regulations: The Federal rules restrict any use of the information to criminally investigate or prosecute any alcohol or drug abuse patient.[facility] HospitalIn the event this information is protected by the Federal Confidentiality of Alcohol and Drug Abuse Patient Records regulations: The Federal rules restrict any use of the information to criminally investigate or prosecute any alcohol or drug abuse patient.[facility] HospitalIn the event this information is protected by the Federal Confidentiality of Alcohol and Drug Abuse Patient Records regulations: The Federal rules restrict any use of the information to criminally investigate or prosecute any alcohol or drug abuse patient.[facility] the event this information is protected by the Federal Confidentiality of Alcohol and Drug Abuse Patient Records regulations: The Federal rules restrict any use of the information to criminally investigate or prosecute any alcohol or drug abuse patient.[facility] HospitalIn the event this information is protected by the Federal Confidentiality of Alcohol and Drug Abuse Patient Records regulations: The Federal rules restrict any use of the information to criminally investigate or prosecute any alcohol or drug abuse patient.[facility] HospitalIn the event this information is protected by the Federal Confidentiality of Alcohol and Drug Abuse Patient Records regulations: The Federal rules restrict any use of the information to criminally investigate or prosecute any alcohol or drug abuse patient.[facility] HospitalIn the event this information is protected by the Federal Confidentiality of Alcohol and Drug Abuse Patient Records regulations: The Federal rules restrict any use of the information to criminally investigate or prosecute any alcohol or drug abuse patient.[facility] HospitalIn the event this information is protected by the Federal Confidentiality of Alcohol and Drug Abuse Patient Records regulations: The Federal rules restrict any use of the information to criminally investigate or prosecute any alcohol or drug abuse patient.[facility] HospitalIn the event this information is protected by the Federal Confidentiality of Alcohol and Drug Abuse Patient Records regulations: The Federal rules restrict any use of the information to criminally investigate or prosecute any alcohol or drug abuse patient.[facility] HospitalIn the event this information is protected by the Federal Confidentiality of Alcohol and Drug Abuse Patient Records regulations: The Federal rules restrict any use of the information to criminally investigate or prosecute any alcohol or drug abuse patient.[facility] HospitalIn the event this information is protected by the Federal Confidentiality of Alcohol and Drug Abuse Patient Records regulations: The Federal rules restrict any use of the information to criminally investigate or prosecute any alcohol or drug abuse patient.[facility] HospitalIn the event this information is protected by the Federal Confidentiality of Alcohol and Drug Abuse Patient Records regulations: The Federal rules restrict any use of the information to criminally investigate or prosecute any alcohol or drug abuse patient.[facility] HospitalIn the event this information is protected by the Federal Confidentiality of Alcohol and Drug Abuse Patient Records regulations: The Federal rules restrict any use of the information to criminally investigate or prosecute any alcohol or drug abuse patient.[facility] HospitalIn the event this information is protected by the Federal Confidentiality of Alcohol and Drug Abuse Patient Records regulations: The Federal rules restrict any use of the information to criminally investigate or prosecute any alcohol or drug abuse patient.[facility] Inactive Administered Medications - up to 3 most recent administrations Administered Medications (un recognized section and content) Medication Order MAR Action Action Date Dose Rate Site onabotulinum toxin type A 155 Units injection (BOTOX) 155 Units, INTRAMUSCULAR, ONCE, 1 dose, On Mon09/25/23 at 1000, This record documents the total dose provided to patient. See progress note for specific locations and amounts administered. Given 09/25/2023 3:31 PM EDT 155 Units Othe r FOR RECORDS PERTAINING TO PATIENTS WHO ARE OR HAVE BEEN ENROLLED IN A CHEMICAL DEPENDENCY/SUBSTANCEABUSE PROGRAM, SOME INFORMATION MAY BE OMITTED. This clinical summary was aggregated from multiple sources. Caution should be exercised in using it in the provision of clinical care. This summary normalizes information from multiple sources, and as a consequence, information in this document may materially change the coding, format and clinical context of patient data. In addition, data may be omitted in some cases. CLINICAL DECISIONS SHOULD BE BASED ON THE PRIMARY CLINICAL RECORDS. [facility] [employer] [facility]. provides no warranty or guarantee of the accuracy or completeness of information in this document.
--- NOTE | 2023-12-12 21:51 | ED.MEDCLEAR1 ---
HPI - Medical Clearance General Chief complaint: Medical Clearance Stated complaint: HEADACHE Time Seen by Provider: 12/12/23 19:53 Source: patient Mode of arrival: walk-in Limitations: no limitations History of Present Illness HPI Narrative: This 33-year-old female presents for evaluation of a migraine headache that she has had for the past 3 to 5 days. She has taken her prescribed medications without relief. She states that she is here because she cannot live her life like this. She states she is spent the past 2 days in bed because of her headache. She has nausea but no vomiting. She has no blurred vision, slurred speech or confusion. She states that she has several autoimmune diseases including besides disease, adrenal insufficiency, high DHEA, scoliosis that causes right leg weakness. She states that she has 15 doctors that she is seeing at [facility] and she comes to this emergency department because she lives locally and this is her go to place for pain that she cannot get resolved. She denies that she wants any narcotic medications. She also states that just to let me know she gets an emotional response anytime she gets any kind of pain medication or relief from her migraine headaches. She has no neck pain or stiffness. This is a typical migraine for her. There was no thunderclap presentation of the headache. She has not had a fever. 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 She is currently still on the steroids. Related Information Home Medications ?Medication ?Instructions ?Recorded ?Confirmed cyanocobalamin (vitamin B-12) 1,000 mcg IM .monthly 12/12/23 12/12/23 1,000 mcg/mL injection solution cyclobenzaprine 10 mg tablet 10 mg PO Q8H 12/12/23 12/12/23 diclofenac potassium 50 mg tablet 50 mg PO DAILY PRN pain 12/12/23 12/12/23 duloxetine 60 mg capsule,delayed 60 mg PO DAILY 12/12/23 12/12/23 release ergocalciferol (vitamin D2) 1,250 1,250 mcg PO DAILY 12/12/23 12/12/23 mcg (50,000 unit) capsule ferrous sulfate 325 mg (65 mg 325 mg PO DAILY 12/12/23 12/12/23 iron) tablet (FeroSul) gabapentin 600 mg tablet 600 mg PO BID 12/12/23 12/12/23 methocarbamol 500 mg tablet 500 mg PO DAILY PRN pain 12/12/23 12/12/23 naratriptan 2.5 mg tablet 2.5 mg PO Q4H 12/12/23 12/12/23 ondansetron HCl 4 mg tablet 4 mg PO Q6H PRN nausea and vomiting 12/12/23 12/12/23 pantoprazole 40 mg tablet,delayed 40 mg PO DAILY 12/12/23 12/12/23 release polyethylene glycol 3350 17 17 g PO DAILY PRN constipation 12/12/23 12/12/23 gram/dose oral powder (Miralax) prazosin 1 mg capsule 1 mg PO DAILY PRN PTSD 12/12/23 12/12/23 prednisone 20 mg tablet 20 mg PO DAILY 12/12/23 12/12/23 Allergies Allergy/AdvReac Type Severity Reaction Status Date / Time metoclopramide [From Reglan] AdvReac Severe Anxiety Verified 12/12/23 19:51 Review of Systems ROS Status of ROS 10 or more systems reviewed and unremarkable except as noted in history and below [facility] Social History Smoking status: Current every day smoker Exam Narrative Exam Narrative: Vital signs and Nursing Notes reviewed: Patient is afebrile with a normal pulse, blood pressure is elevated at 136/105, she is not hypoxic with pulse ox of 98% on room air General: Awake, alert, oriented, no acute distress, lying comfortably on the stretcher, well-appearing female, no distress noted HEENT: Normocephalic atraumatic, mucous membranes are moist and pink, eyes are clear, normal conjunctiva, vision is grossly intact, posterior pharynx is normal in appearance. Neck: Supple, no meningeal signs, no anterior or posterior cervical lymphadenopathy Chest: Lungs are clear to auscultation with good air entry, there is no wheezing rhonchi or rales appreciated no accessory muscle use, patient is speaking in complete sentences-no chest wall tenderness to palpation CVS: Regular rate and rhythm S1-S2, no murmurs rubs or gallops, pulses are brisk and equal bilaterally ABD: Soft, nondistended, nontender, no rebound guarding or rigidity, bowel sounds are normal, no pulsatile masses appreciated Extremities: Moving all extremities, no lower extremity tenderness or swelling noted, negative Homans' sign, pulses are brisk and equal bilaterally Skin: Normal in appearance without rash,pallor, petechiae or purpura Neuro: No focal deficits, speech is clear, there is no facial droop, upper and lower extremity strength and sensation is intact, negative pronator drift, positive rapid alternating hand movements Constitutional Vital Signs, click to edit/add: Last Vital Signs Temp 99.0 F 12/12/23 19:47 Pulse 65 12/12/23 22:17 Resp 18 12/12/23 22:17 BP 136/89 12/12/23 22:17 Pulse Ox 98 12/12/23 22:17 O2 Del Method Room Air 12/12/23 19:47 Course Vital Signs Vital signs: Vital Signs Temperature 99.0 F 12/12/23 19:47 Pulse Rate 85 12/12/23 19:47 Respiratory Rate 20 12/12/23 19:47 Blood Pressure 136/105 H 12/12/23 19:47 Pulse Oximetry 98 12/12/23 19:47 Oxygen Delivery Method Room Air 12/12/23 19:47 Temperature 99.0 F 12/12/23 19:47 Pulse Rate 65 12/12/23 22:17 Respiratory Rate 18 12/12/23 22:17 Blood Pressure 136/89 12/12/23 22:17 Pulse Oximetry 98 12/12/23 22:17 Oxygen Delivery Method Room Air 12/12/23 19:47 MDM - Medical Clearance MDM Narrative Medical decision making narrative: Patient is feeling better after her migraine cocktail. She will be discharged home. She requests an oral Benadryl to take at home because she declined the IM Benadryl I had ordered to prevent the akathisia from the Phenergan. Discharge Plan Discharge Stand Alone Forms: Portal Instructions Chief Complaint: Medical Clearance Clinical Impression: Headache, migraine Patient Disposition: Home, Self-Care Time of Disposition Decision: 23:13 Condition: Good Prescriptions / Home Meds: No Action cyanocobalamin (vitamin B-12) 1,000 mcg/mL solution 1,000 mcg IM .monthly cyclobenzaprine 10 mg tablet 10 mg PO Q8H diclofenac potassium 50 mg tablet 50 mg PO DAILY PRN (Reason: pain) duloxetine 60 mg capsule,delayed release(DR/EC) 60 mg PO DAILY ergocalciferol (vitamin D2) 1,250 mcg (50,000 unit) capsule 1,250 mcg PO DAILY ferrous sulfate [FeroSul] 325 mg (65 mg iron) tablet 325 mg PO DAILY gabapentin 600 mg tablet 600 mg PO BID methocarbamol 500 mg tablet 500 mg PO DAILY PRN (Reason: pain) naratriptan 2.5 mg tablet 2.5 mg PO Q4H ondansetron HCl 4 mg tablet 4 mg PO Q6H PRN (Reason: nausea and vomiting) pantoprazole 40 mg tablet,delayed release (DR/EC) 40 mg PO DAILY polyethylene glycol 3350 [Miralax] 17 gram/dose powder 17 g PO DAILY PRN (Reason: constipation) prazosin 1 mg capsule 1 mg PO DAILY PRN (Reason: PTSD) prednisone 20 mg tablet 20 mg PO DAILY Rx Instructions: as directed Print Language: Khmer Instructions: Migraine Headache (ED) Referrals: Physician,Non-Staff, MD [Primary Care Provider] - 1 week
[2023-12-12] MEDS: ONDANSETRON PF 4 MG/2 ML VIAL IV (22:05)
[2023-12-12] MEDS: 0.9 % SODIUM CHLORIDE 1,000 ML 1000 ML IV (22:05)
[2023-12-12] MEDS: KETOROLAC TROMETHAMINE 30 MG/ML VIAL IVP (22:05)
[2023-12-12] MEDS: MAGNESIUM SULFATE IN WATER 2 GM/50 ML PREMIX IV (22:05)
[2023-12-12 22:17] VITALS: BP 136/89; PULSE 65; O2SAT 98
[2023-12-12] MEDS: PROMETHAZINE HCL 25 MG/ML VIAL 12.5 MG IM (22:55)
[2023-12-12] MEDS: DIPHENHYDRAMINE HCL 25 MG CAPSULE PO (23:25)
[2023-12-12 23:27] VITALS: BP 136/78; PULSE 62; O2SAT 99
== END 2023-12-12 23:27 | disposition home or self-care (01) ==
PROVIDERS: Emergency Provider Emergency Medicine
DX: G43.909 Migraine, unspecified, not intractable, without status migrainosus (principal); F17.200 Nicotine dependence, unspecified, uncomplicated; E27.40 Unspecified adrenocortical insufficiency; M41.9 Scoliosis, unspecified
CPT/HCPCS: 96365; 96372; 96375; 99284; J1885; J2250; J2405; J3475

== ENCOUNTER 2024-03-10 09:42 | Emergency (ER) | payer OTHER, SELFPAY ==
[2024-03-10] VITALS (12 sets, daily range): BP systolic 127–144; BP diastolic 91–112; PULSE 82–88; TEMP 36.6; O2SAT 97–100; BMI 26.6
--- OUTSIDE RECORDS SUMMARY | 2024-03-10 09:55 | XMS_ITS | CCD ---
Author Organization [facility] Care Team Providers Care Leg Man Name Role Phone PRISCILA XIE Admitting Unavailab le SYSTEM, PROVIDER NOT IN Referring Unavaila WOODY Benitez Primary Care Unavailabl e Horava, Harish A. Primary Care Provider Unavailable Primary Care Provider Unavailabl e Horava DO, Harish A. Primary Care Provider Unavailable Primary Care Provider Unavailabl e Horava DO, Harish A. Primary Care Provider Horava DO, Harish A. Primary Care Provider Unavailable Primary Care Provider Unavailabl e Horava DO, Harish A. Primary Care Provider Alex PSA, Yuridia Unavailable Unavailable Unavailable Primary Care Provider Unavailkevin e Unavailable Primary Care Provider UnavailAlessandra Espinosa DO Primary Care Pro vider Horava, Harish A Unavailable Alessandra Romero DO Primary Care Provider DL PONCE Attending Unavailable DL PONCE Referring Unavailable CHRISS ROMERO?Jesica Primary Care Unavaila Mark Osorio Primary Care Provider MARK POE Primary Care Unavailable MARK POE Primary Care Unavailable MARK POE Primary Care Unavailable KASHMIR BELTRAN JR. Attending Unavailable ELSI LUCAS Referring Unavailable ALESSANDRA ROMERO Primary Care Kimberly vailable CISCO GARCIA Attending Unavailable MARK POE Referring Unavailable ALESSANDRA ROMERO Primary Care Kimberly vailable SOPHIE YOUNGER Attending Unavailable Kavita Gama Primary Care Provider [phone] REJI BAKER Attending Unavailable POE, MARK Primary Care Unavailable POE, MARK Referring Unavailable POE, MARK Primary Care Unavailable POE, MARK Attending Unavailable CRUZ-AGUILAR, TEX Attending Unavailable CRUZ-AGUILAR, ETX Referring Unavailable POE, MARK Primary Care Unavailable [...] available OSMAN, NOLBERTO BOLLAMPALLY Referring Un available LanetteKavita salomon APRN, CNP Primary Care Provid er Shira Preciado PA-C Attending Unavai lable Kavita Romo Referring Unava lynnette Bazan MD, Jameson Edwards Attending Unavailable NO, PHYSICIAN Primary Care Unavailable RAMESH CORTEZ Attending Unavailable RAMESH CORTEZ Referring Unavailable Horava DO, Harish A Unavailable [phone] Kavita Carpenter APRN, CNP Primary Care Provid er Kavita Gama APRN.CNP Primary Care Provider Jay Phillips MD Unavailable [phone] NO, PHYSICIAN Primary Care Unavailable HARISH GARZA Attending Unavailable [facility] Primary Care Kimberly vailable HARISH GARZA Attending Unavailable MEET BAIRES Attending Unavailable [facility] Primary Care Kimberly vailable HARISH GARZA Attending Unavailable [facility] Primary Care Kimberly vailable MARK POE Attending Unavailable [facility] Primary Care Kimberly vailable SHAYYELSI Attending Unavailable SHAYYELSI [facility]ending [facility] Kimberly vailable SHAYY, ELSI ABDUL Attending Un[facility] Primary Care Kimberly vailable Krjuanjoman DO, Noa Primary Care Provider [phone] Phu RN, Bruno Unavailable Unavailable Phu RN, Bruno Unavailable Unavailable Krizvincent CHAMBERLAIN Noa Primary Care Provider [phone] JAJA TRUONG Attending UnavailJAJA Ovalles Referring Unavailabl e LANETTE, KAVITA L Primary Care Unavailable QUINTON MCKEON Referring Unavailable MOHINDER GARCIA Referring Unavailable LANETTE, KAVITA L Primary Care Unavailable KRISTINA JACOBS Referring Unavailable LANETTE, KAVITA L Primary Care Unavailable JAJA TRUONG Attending UnavailJAJA Ovalles Referring Unavailabl e LANETTE, KAVITA L Primary Care Unavailable JEFFREY MOTAMEN F Admitting Unavail able MICHELLE MOTA F Attending Unavail able JAUN OSORIO MICHELLE F Referring Unavail able LANETTE, KAVITA L Primary Care Unavailable MILLIE MACK Referring Unavailable LANETTE, KAVITA L Primary Care Unavailable CHRIS GATES Attending Unavailabl e KRIZMAN, NOA Referring Unavailable KRIZMAN, NOA Primary Care Unavailable DAMIEN LANDON M.D. Attending Unavailable LANETTE, KAVITA L Primary Care Unavailable KRIZMAN, NOA Primary Care Unavailable KRIZMAN, NOA Primary Care Unavailable SAROJ THORNTON Admitting Unavailable MOISES, MAIDANA Attending Unavailable KELVIN FLANNERY Attending Unavailable KRJUANJOMAN, NOA Primary Care Unavailable LANETTE, KAVITA L Primary Care Unavailable RUBIN VERDE Referring Unavailable LANETTE, KAVITA L Primary Care Unavailable AMMON, RUBIN Referring Unavailable MEGAN KERN Attending Unavailable FATUMANFELL, MEGAN Referring Unavailable KRIZMAN, NOA Primary Care Unavailable KRIZMAN, NOA Primary Care Unavailable KELVIN FLANNERY Referring Unavailable KRIZMAN, NOA Primary Care Unavailable AMMON, RUBIN Referring Unavailable KRIZMAN, NOA Primary Care Unavailable AMMON, RUBIN Referring Unavailable AMMON, RUBIN Referring Unavailable KRIZMAN, NOA Primary Care Unavailable KELVIN PRATT Attending Unavailable KRIZMAN, NOA Primary Care Unavailable CARRIE LEA Attending Unavailable KRIZMAN, NOA Primary Care Unavailable FAROOQ MCGRAW Referring Unavailable KRIZMAN, NOA Primary Care Unavailable LETTY BE Attending Unavailable KRIZMAN, NOA Referring Unavailable KRIZMAN, NOA Primary Care Unavailable JALYN KERNYN Attending Unavailable LANETTE, KAVITA L Primary Care Unavailable LANETTE, [facility] Primary Care Unavailable AMMON, RUBIN Referring Unavailable LANETTE, [facility] Primary Care Unavailable JAY PHILLIPS Attending Unavailable AMMON, RUBIN Referring Unavailable GRENFELL, MEGAN Referring Unavailable GRENFELL, MEGAN Attending Unavailable KRIZMAN, NOA Primary Care Unavailable AMMON, RUBIN Referring Unavailable KRIZMAN, NOA Primary Care Unavailable PEGGY GILMORE Attending Unavailable KELVIN FLANNERY Attending Unavailable KRIZMAN, NOA Primary Care Unavailable CARRIE LEA Attending Unavailable KRIZMAN, NOA Primary Care Unavailable KRIZMAN, NOA Primary Care Unavailable PEGGY GILMORE Attending Unavailable PEGGY GILMORE Referring Unavailable JAMILA BOWMAN Attending Unavailable AMMON, RUBIN Referring Unavailable KRIZMAN, NOA Primary Care Unavailable JYOTI SIMMONS Attending Unavailable KRIZMAN, NOA Referring Unavailable KRIZMAN, NOA Primary Care Unavailable LANETTE, KAVITA L Primary Care Unavailable ANIKA AUGUSTE Attending Unavailable AMMON, RUBIN Referring Unavailable GRENFELL, MEGAN Attending Unavailable FATUMANFELL, MEGAN Referring Unavailable LANETTE, KAVITA L Primary Care Unavailable LANETTE, [facility] Primary Care Unavailable AMMON, RUBIN Referring Unavailable AMMON RUBIN Attending Unavailable LANETTE, [facility] Primary Care Unavailable KRIZMAN, NOA Primary Care Unavailable KRIZMAN, NOA Primary Care Unavailable KRIZMAN, NOA Attending Unavailable KRIZMAN, NOA Primary Care Unavailable MARIE STEVENS Attending Unavailable KRIZMAN, NOA Primary Care Unavailable FAROOQ MCGRAW Referring Unavailable KRIZMAN, NOA Primary Care Unavailable KELVIN PRATT Referring Unavailable KRIZMAN, NOA Primary Care Unavailable RUBIN VERDE Attending Unavailable FAROOQ MCGRAW Attending Unavailable KRIZMAN, NOA Primary Care Unavailable ISSA HENRIQUEZ Referring Unavailable KRIZMAN, NOA Primary Care Unavailable MEGAN KERN Referring Unavailable KRIZMAN, NOA Attending Unavailable KRIZMAN, NOA Primary Care Unavailable FAROOQ MCGRAW Attending Unavailable KRIZMAN, NOA Primary Care Unavailable KRIZMAN, NOA Primary Care Unavailable CARMELINA EDMOND Attending Unavailable BARBARA RUBIO Attending Unavailab le KRIZMAN, NOA Primary Care Unavailable ISSA HENRIQUEZ Attending Unavailable KRIZMAN, NOA Primary Care Unavailable KRIZMAN, NOA Primary Care Unavailable RUBIN VERDE Attending Unavailable KELVIN PRATT Referring Unavailable KRIZMAN, NOA Primary Care Unavailable CONNIE DALE Attending Unavailable RUBIN VERDE Referring Unavailable KRIZMAN, NOA Primary Care Unavailable FAROOQ MCGRAW Attending Unavailable KRIZMAN, NOA Primary Care Unavailable JOO ALCANTAR Referring Unavailable KRIZMAN, NOA Attending Unavailable KRIZMAN, NOA Primary Care Unavailable KRIZMAN, NOA Attending Unavailable KRIZMAN, NOA Primary Care Unavailable KAVITA GAMA Primary Care Unavailable KRIZMAN, NOA Attending Unavailable JAY PHILLIPS Referring Unavailable KELVIN FLANNERY Attending Unavailable KRIZMAN, NOA Primary Care Unavailable Allergies Allergy Classification Reported Allergen(s) Allergy Type Date of Onset Reaction(s) Facility DOPamine Antagonists (5 sources) Metoclopramide Drug Allergy 2 Shortness of Breath, Other: See Comments [facility] Mold Extract (5 sources) Mold Extract Drug Allergy 3 Hives [facility] (20 sources) Metoclopramide; Translations: [METOCLOPRAMIDE HCL] Drug Allergy 2 Anxiety, Palpitations, Shortness Of Breath [facility] (20 sources) Metoclopramide; Translations: [METOCLOPRAMIDE] Drug Allergy 2 Shortness of Breath, Other: See Comments, Anxiety, Other, Palpitations, Dyspnea [facility] (20 sources) Mold Extract; Translations: [MOLD] Drug Allergy 3 [facility] (1 source) Metoclopramide; Translations: [Reglan] Drug Allergy [facility] Repository Medications Current Medications Medication Drug [...] mg oral tablet (20 sources) Benzodiazepine Start: 01-05-2024 End: 02-04-2024 take 0.5 tablet by mouth twice daily as needed for anxiety ALPRAZolam (XANAX) 0.5 mg tablet Indications: Generalized anxiety disorder , PTSD (post-traumatic stress disorder) Take 0.5 tablets by mouth two times a day as needed for anxiety for up to 30 days. 30 tablet 01/05/2024 02/04/2024 Active Start: 09-22-2023 End: 10-22-2023 take 0.5 tablet [...] mouth as needed. Take 1 tablet by shelby th two times a day for 30 days. Take 0.25 mg by mout h two times a day as needed for anxiety. Take 0.5 tablets by mouth two times a day as needed for anxiety for up to 30 days. bisacodyl 5 mg delayed release oral tablet (20 sources) Stimulant Laxative Start: 07-25-2023 End: 02-15-2024 take 4 tablets by mouth once bisacodyl EC (DULCOLAX) 5 mg EC tablet TAKE 4 TABLETS BY MOUTH DIRECTED per colonoscopy instructions 07/25/2023 Active Start: 02-27-2022 End: 02-28-2022 take 10 mg rectal route once daily as needed for constipation 10 mg, Rectal, Daily PRN, constipation, Starting on 02/27/22 at 1735 Comment on above: TAKE 4 TABLETS BY [facility] DIRECTED per colonoscopy instructions 24 hr buPROPion hydrochloride 300 mg extended release oral tablet (1 source) Aminoketone Start: 1 take 1 tablet by mouth once daily in the morning buPROPion (WELLBUTRIN XL) 300 MG extended release tablet Indications: depression Take 1 tablet by mouth every morning 30 tablet 5 01/20/2021 Active busPIRone hydrochloride 7.5 mg oral tablet (20 sources) Start: 4 take 1 tablet by mouth once daily busPIRone (BUSPAR) 7.5 mg tablet Take 1 tablet by mouth once daily. 30 tablet 3 12/22/2023 Active Start: 06-16-2023 End: 07-26-2023 take 1 tablet by mouth once daily busPIRone (BUSPAR) 7.5 mg tablet Take 1 tablet by mouth once daily. 0 06/16/2023 07/26/2023 Discontinued (Discontinued by another Health Care Provider) Comment on above: Take 1 tablet by shelby once daily. chlorzoxazone 500 mg oral tablet (2 sources) Muscle Relaxant Start: 3 End: 3 take 1 tablet by mouth four times [...] on above: Take 1 tablet by shelby four times daily for 5 days. Do not take any other muscle relaxers while taking this medication. This may make you drowsy so I caution driving while taking this. 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 180 tablet 5 02/23/2024 Active Start: 10-20-2023 End: 12-22-2023 take 1 tablet by mouth once daily colchicine 0.6 mg tablet Indications: Recurrent aphthous stomatitis Take 1 tablet by mouth once daily. 30 tablet 1 10/20/2023 12/22/2023 Discontinued Start: 10-03-2022 End: 07-26-2023 take 1 tablet [...] oral tablet (20 sources) Muscle Relaxant Start: 02-07-20 End: 04-07-20 take 1 tablet by mouth every eight hours as needed cyclobenzaprine (FLEXERIL) 10 mg tablet Take 1 tablet by mouth three times a day as needed. Do not take with baclofen or robaxin. 90 tablet 1 02/07/2024 04/07/2024 Active Start: 12-04-2023 End: 02-04-2024 take 1 tablet by mouth every eight hours as needed cyclobenzaprine (FLEXERIL) 10 mg tablet Take 1 tablet by mouth three times a day as needed. Do not take with baclofen or robaxin. 90 tablet 1 12/04/2023 02/04/2024 Active Start: 09-29-2023 End: 10-29-2023 take 1 [...] as needed. Take 1 tablet by shelby three times a day as needed. Do not take with baclofen or robaxin. 1 ml dexamethasone phosphate 4 mg/ml injection (15 sources) Corticosteroid Start: dexAMETHasone sodium phosphate (DECADRON) 4 mg/mL injection Inject 4 mg intramuscularly as needed (adrenal crisis). 1 mL 3 02/05/2024 Active diclofenac potassium 50 mg oral tablet (20 sources) Nonsteroidal Anti-inflammatory Drug Start: End: take 1 tablet by mouth every eight hours as needed for pain diclofenac potassium (CATAFLAM) 50 mg tablet Take 1 tablet by mouth at onset of headache. May take every 8 hours as needed for pain. Take with food, and no more than 10 days per month. 20 tablet 5 09/22/2023 Active take 1 tablet by shebly twice daily at mealtime diclofenac sodium (VOLTAREN) [...] month. docusate sodium 50 mg / sennosides, group home 8.6 mg oral tablet (20 sources) Start: 08-07-19 take 1 tablet by mouth every twelve hours as needed senna-docusate (SENNA-S) 8.6-50 mg per tablet Take 1 tablet by mouth two times a day as needed for constipation. 1 tablet 02/09/2024 Active Comment on above: Take 1 tablet by shelby th two times a day. ergocalciferol 1.25 mg oral capsule (20 sources) Provitamin D2 Compound Start: 07-21-19 24 take 1 capsule by mouth every week ergocalciferol 50,000 unit capsule (VITAMIN D2, DRISDOL) TAKE 1 CAPSULE BY MOUTH ONCE A WEEK 12 capsule 1 07/21/2023 Active 21 day ethinyl estradiol 0.541350 mg/hr / etonogestrel 0.005 mg/hr vaginal ring (7 sources) Progestin, Estrogen Start: 03-14-20 16 etonogestrel-ethinyl estradiol (NUVARING) 0.12-0.015 MG/24HR vaginal ring Indications: Irregular periods Place 1 each vaginally every 21 days Insert one (1) ring vaginally and leave in place for three (3) weeks, then remove for one (1) week. 1 each 12 03/14/2016 Active Ethinyl Estradiol / Levonorgestrel (11 sources) Progestin, Estrogen, Progestin-containing Intrauterine Device Start: 07-12-19 23 take 1 tablet by mouth once daily levonorgestrel-ethiny l estradiol (LYBREL) 90-20 mcg (28) per tablet [...] EVERY DAY 84 tablet 1 06/07/2022 Active 1.5 ml fremanezumab-vfrm 150 mg/ml auto-injector (20 sources) Start: 01-17-2024 End: 01-16-2025 inject 1.5 mL by subcutaneous injection every month fremanezumab-vfrm subcutaneus auto-injector 225 mg/1.5 mL (AJOVY) Inject 1.5 mL subcutaneously once every month. Do not shake. 1.5 mL 11 01/17/2024 01/16/2025 Active gabapentin 600 mg oral tablet (20 sources) Anti-epileptic Agent Start: 10-17-2023 End: 10-16-2024 take 1 tablet by mouth three times daily gabapentin (NEURONTIN) 600 mg tablet Indications: Chronic migraine without aura, intractable, without status migrainosus Take 1 tablet by mouth three times a day. 270 tablet 3 10/17/2023 10/16/2024 Active Start: 06-19-2023 End: 02-15-2024 take 1 tablet by mouth twice daily gabapentin (NEURONTIN) 600 mg tablet TAKE 1 TABLET BY MOUTH TWICE DAILY 180 tablet 1 06/19/2023 02/15/2024 Discontinued Start: 06-02-2023 End: 07-02-2023 take 1 [...] 300 mg. Take 1 capsule by mo [facility] every morning AND 2 capsules daily at bedtime. Do all this for 180 days. [facility] a day for 180 days. hydrocortisone 5 mg oral tablet (20 sources) Corticosteroid Start: End: take 3 tablets by mouth once daily before breakfast, then take 2 tablets by mouth once daily after lunch hydrocortisone (CORTEF) 5 mg tablet Take 3 tablets by mouth daily before breakfast AND 2 tablets daily after lunch. Double the dose for 3-5 days when you are acutely sick. 450 tablet 3 02/09/2024 02/08/2025 Active Start: 12-12-2023 End: 03-11-2024 take 1 tablet by mouth once daily hydrocortisone (CORTEF) 10 mg tablet Take 1 tablet by mouth once daily. 90 tablet 12/12/2023 02/05/2024 Discontinued ibuprofen 800 mg oral tablet (1 source) Nonsteroidal Anti-inflammatory Drug Start: 11-27-2020 take 1 tablet by mouth every eight hours ibuprofen (ADVIL;MOTRIN) 800 MG tablet Take 1 tablet by mouth every 8 hours 120 tablet 3 11/27/2020 Active iv contrast (will be provided with radiology test) (1 source) Start: 07-01-2022 End: 07-02-2022 iv contrast (will be provided with radiology [...] Active Comment on above: MRI LSP Inject, intravenously, once for 1 [...] link. ammonium lactate 120 mg/ml topical cream (20 sources) Start: 10-30-2023 ammonium lactate (LAC-HYDRIN) 12 % cream Indications: Dry skin dermatitis Apply to affected area(s) topically daily as needed. 140 g 1 10/30/2023 Active lanolin 1000 mg/ml topical cream (1 source) Start: 11-27-2020 lansinoh lanolin CREA ointment Apply 1 applicator topically as needed for Dry Skin (nipple discomfort) 1 Tube 2 11/27/2020 Active Magnesium (15 sources) End: 10-19-2022 Magnesium 250 mg tab Take 500 mg by mouth. 0 10/19/2022 Discontinued (Discontinued by Patient) Magnesium 250 mg tab Take 500 mg by mouth. 0 Active Comment on above: Take 500 mg by mouth . methocarbamol 500 mg oral tablet (20 sources) Muscle Relaxant Start: End: take 1 tablet by mouth twice daily as needed for pain methocarbamol (ROBAXIN) 500 mg tablet Indications: Chronic migraine without aura, intractable, without status migrainosus Take 1 tablet by mouth two times a day as needed (for headache/pain). Do not take on days you use baclofen. 120 tablet 3 12/29/2023 12/28/2024 Active Start: 03-06-2023 End: 07-26-2023 take 1 tablet by mouth every eight hours as needed methocarbamol (ROBAXIN) 500 mg tablet Take 500 mg by mouth three times a day as needed. 0 03/06/2023 07/26/2023 Discontinued (Duplicate Entry) Start: 02-07-2023 End: 12-29-2023 take 1 tablet by mouth once daily methocarbamol (ROBAXIN) 500 mg tablet TAKE 1 TABLET BY MOUTH DAILY 90 tablet 3 02/07/2023 12/29/2023 Discontinued (Duplicate Entry) Start: 08-02-2022 End: 08-09-2022 [...] needed (for blood pressure symptoms). 1 Each 07/05/2023 07/04/2024 Suspended Start: 07-05-2023 End: 07-04-2024 Miscellaneous Medical Supply (BLOOD PRESSURE CUFF) 1 Each as needed (for blood pressure symptoms). 1 Each 07/05/2023 07/04/2024 Active Start: 07-05-2023 End: 07-04-2024 Miscellaneous Medical Supply [...] tablet (20 sources) Leukotriene Receptor Antagonist Start: montelukast (SINGULAIR) 10 mg tablet Take 10 mg by mouth as needed. 09/01/2022 Active Comment on above: Take 10 mg by mouth as needed. multivit,thx,calcium, iron,mins (MULTIVITAMIN AND MINERAL ORAL) (20 sources) take 1 tablet by mouth once daily multivit,thx,calcium ,iron,mins (MULTIVITAMIN AND MINERAL ORAL) Take 1 tablet by mouth once daily. Suspended take 1 tablet by shelby th once daily multivit,thx,calcium,iron,mins (MULTIVIT ONEAL AND MINERAL ORAL) Take 1 tablet by mouth once daily. Active take 1 tablet by shelby th once [...] and Serotonin-1d Receptor Agonist Start: 3 End: 5 take 1 tablet by mouth every twenty-four [...] MG IN 24 HOURS. 9 tablet 11 12/22/2023 12/21/2024 Active Comment on above: Take 1 tablet [...] NOT EXCEED FIVE(5) MG IN 24 HOURS. ondansetron 4 mg oral tablet (20 sources) Serotonin-3 Receptor Antagonist Start: 4 take 1 tablet by mouth once daily as needed for nausea ondansetron (ZOFRAN) 4 mg tablet Indications: Nausea Take 1 tablet by mouth once daily as needed (for nausea.). 30 tablet 1 02/14/2024 Active Start: 06-02-2023 End: 07-26-2023 take 1 tablet [...] shelby th every 8 hours as needed. pantoprazole 40 mg delayed release oral tablet (20 sources) Proton Pump Inhibitor Start: 07-25-[address] (PROTONIX) 40 mg tablet 07/25/2023 Active Start: 06-22-2022 pantoprazole ( PROTONIX) 40 MG tablet Comment on above: TAKE 1 TABLET BY SHELBY TH ONCE DAILY 30-60 MINUTES BEFORE MEALS polyethylene glycol 3350 18723 mg powder for oral solution (20 sources) Osmotic Laxative Start: 11-27-2023 polyethylene glycol 3350 17 gram/dose powder MIX AND TAKE 119 GRAMS WITH 32 OUNCES OF WATER OR GATORADE 2 DAYS PRIOR TO COLONOSCOPY PER INTRSUCTIONS 119 g 11/27/2023 Active Start: 11-27-2023 polyethylene g lycol 3350 17 gram/dose powder TAKE 238 GRAM MIXED WITH 64 OUNCE GATORADE OR WATER 1 DAY PRIOR TO COLONOCOPY PER INSTRUCTIONS 238 g 11/27/2023 Active Start: 07-25-2023 End: 02-15-2024 polyethylene glycol 3350 17 gram packet Take 1 Packet by mouth once daily. Dissolve dose in 4 - 8 ounces of liquid and take as directed. 08/08/2023 Active Start: 06-22-2022 polyethylene g lycol (GLYCOLAX) 17 gram/dose powder ADMINISTER 1-2 CAPFULS DISSOLVED IN WATER AT BEDTIME FOR 180 DAYS 0 06/22/2022 Active Comment on above: USE DIRECTED per colonoscopy instructions [facility]. Dissolve dose in 4 - 8 ounces of liquid and take as directed. polyethylene glycol 3350 462669 mg / potassium chloride 2970 mg / sodium bicarbonate 6740 mg / sodium chloride 5860 mg / sodium sulfate 07505 mg powder for oral solution (1 source) Osmotic Laxative Start: 01-24-2024 End: 01-25-2024 peg 3350-Electrolytes (GOLYTELY) 236-22.74-6.74 -5.86 gram suspension Indications: Constipation, unspecified constipation type Take 4,000 mL by mouth one time only for 1 dose. Refer to printed prep instructions from your provider. 4000 mL 0 01/24/2024 01/25/2024 Active Polyethylene Glycols (15 sources) End: 10-19-2022 polyethylene [...] Take 1 mg by mouth every evening. 11/01/2022 Active Start: 10-10-2022 take 1 capsule by mo [facility] once daily prazosin (MINIPRESS) 1 MG capsule Indications: Nightmare disorder Take 1 capsule by mouth nightly 30 capsule 3 10/10/2022 Active Comment on above: Take 1 mg by mouth e very evening. predniSONE 20 mg oral tablet (20 sources) Start: 12-09-2023 End: 02-09-2024 take 1 tablet by mouth once daily, then take 0.5 tablet by mouth once daily predniSONE (DELTASONE) 20 mg tablet Take 20 mg by mouth as directed. TAKE 3 TABLETS BY MOUTH ONCE DAILY FOR 7 DAYS, then TAKE 2 TABLETS BY MOUTH ONCE DAILY FOR 3 DAYS, then TAKE 1 TABLET BY MOUTH ONCE DAILY FOR 3 DAYS, then TAKE 1/2 (ONE-HALF) OF A TABLET ONCE DAILY FOR 4 DAYS 12/09/2023 02/09/2024 Discontinued Start: 08-25-2022 End: 09-08-2022 predniSONE (DELTASONE) 10 [...] by 10 mg every day until off. Vit-Fe Fumarate-FA ( VITAMIN PO) (12 sources) Vit-Fe Fumarate-FA ( VITAMIN PO) Take by mouth daily 0 Active promethazine hydrochloride 12.5 mg oral tablet (20 sources) Phenothiazine Start: 07-20-19 24 End: 08-03-19 24 take 1 tablet by mouth three times daily as needed for nausea promethazine (PHENERGAN) 12.5 MG tablet Indications: Nausea Take 1 tablet by mouth 3 times daily as needed for Nausea 30 tablet 0 07/20/2023 08/03/2023 Active End: 02-14-2024 promethazine HCl (PHENERGAN ORAL) Take 1 tablet by mouth as needed. 02/14/2024 Discontinued promethazine HCl (PHENERGAN ORAL) Take 1 tablet by mouth as needed. Suspended promethazine HCl (PHENERGAN ORAL) Take 1 tablet by mouth as needed. Active promethazine HCl (PHENERGAN ORAL) Take 1 tablet by mouth as needed. 0 Active promethazine HCl (PHENERGAN ORAL) Take by [...] Take 25 mg by mouth once daily. rimegepant 75 mg disintegrating oral tablet (20 sources) Start: 2023 rimegepant (NURTEC ODT) 75 mg disintegrating tablet Take 1 tablet by mouth as needed (migraine. No more than 1 dose in 24 hours.). 8 tablet 11 12/28/2023 Active rizatriptan 10 mg oral tablet (20 sources) [...] at bedtime. 14 tablet 0 05/05/2015 Active spinosad 9 mg/ml medicated shampoo (20 sources) Pediculicide Start: 2023 spinosad (NATROBA) 0.9 % susp APPLY TOPICALLY FROM NECK DOWN AND ALLOW TO ABSORB FOR TEN MINUTES BEFORE GETTING DRESSED. LEAVE ON FOR 6 HOURS THEN CAN WASH OFF 120 mL 1 12/09/2023 Active Syringe with Needle, Disp, (BD ALLERGY [...] oral tablet (20 sources) Start: 2022 End: 2024 take 1 tablet by mouth every two [...] doses in 24 hours. 16 tablet 11 12/22/2023 12/28/2023 Discontinued (Not on Formulary) Comment on above: Take 1 tablet by [...] mL intramuscularly once every month. 10 mL 09/20/2023 Active Start: 07-20-2022 End: 07-20-2022 cyanocobalamin [...] times a day. onabotulinumtoxina 200 unt injection (4 sources) Acetylcholine Release Inhibitor Start: 12-22-2023 End: 12-22-2023 onabotulinum toxin type A 155 Units injection (BOTOX) Start: 09-25-2023 End: 09-25-2023 onabotulinum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 GFR. Performed By: #### 2 4323-8 ####[facility] LABCLIA [id number] [place] [address] Glucose [Mass/Vol] 133 mg/dL High 74-99 [facility] Comment on above: Order Comment: Rey licha Type: BLOOD SPECIMENOrdering Facility: External Submitter Address: , , Result Comment: The [place] [employer] (ADA) provides guidance for cutoff values for fasting glucose and random glucose. The ADA defines fasting as no caloric intake for at least 8 hours. Fasting plasma glucose results between 100 to 125 mg/dL indicate increased risk for diabetes (prediabetes).Fasting plasma glucose results greater than or equal to 126 mg/dL meet the criteria for diagnosis of diabetes. In the absence of unequivocal hyperglycemia, results should be confirmed by repeat testing. In a patient with classic symptoms of hyperglycemia or hyperglycemic crisis, random plasma glucose results greater than or equal to 200 mg/dL meet the criteria for diagnosis of diabetes.Reference: Standards of Medical Care in Diabetes 2016, [place] [employer]. Diabetes Care. 2016.39(Suppl 1). Performed By: #### 2 4323-8 ####[facility] LABCLIA [id number] [place] [address] Potassium [Moles/Vol] 4.4 mmol/L Normal 3.7-5.1 [facility] Comment on above: Order Comment: Speci men Type: BLOOD SPECIMENOrdering Facility: External Submitter Address: , , Performed By: #### 2 4323-8 ####[facility] LABIA [id number] [place] [address] Protein [Mass/Vol] 7.6 g/dL Normal 6.3-8.0 [facility] Comment on above: Order Comment: Speci men Type: BLOOD SPECIMENOrdering Facility: External Submitter Address: , , Performed By: #### 2 4323-8 ####[facility] LABIA [id number] [place] [address] Sodium [Moles/Vol] 142 mmol/L Normal 136-144 [facility] Comment on above: Order Comment: Speci men Type: BLOOD SPECIMENOrdering Facility: External Submitter Address: , , Performed By: #### 2 4323-8 ####[facility] LABIA [id number] [place] [address] Urea nitrogen [Mass/Vol] 8 mg/dL Normal 7-21 [facility] Comment on above: Order Comment: Speci men Type: BLOOD SPECIMENOrdering Facility: External Submitter Address: , , Performed By: #### 2 4323-8 ####[facility] LABIA [id number] [place] [address] Kip Quiroz 01-23-20 24 Cortisol [Mass/Vol] 1.2 ug/dL Low 4.8-19.5 [facility] Comment on above: Order Comment: Speci men Type: BLOOD SPECIMENOrdering Facility: [facility] Address: [address] [place] [address] Result Comment: Prov ided reference range is from 6-10 AM sample collection time.Cortisol Reference Range: 6-10 AM = 4.8-19.5 ug/dL, 4-8 PM = 2.5-11.9 ug/dL Performed By: #### Percy ESQUIVEL, 2143-6 ####[facility] HOSPITAL[facility] [id number] [place] [id number] [place] DHEA-S BLDon 01-23-2024 DHEA-S [Mass/Vol] 163.9 ug/dL Normal 98.8-340.0 [facility] Comment on above: Order Comment: Speci men Type: BLOOD SPECIMENOrdering Facility: [facility] Address: [address] [place] [address] Result Comment: Refe rence ranges are age and gender specific. For additional information, reference range tables can be found in the laboratory test directory.The normal values are based on the following source: Dehydroepiandrosterone sulfate (DHEA S) [package insert V 17.0 [place]ian]. [facility], [place], [place]: January 2013. Performed By: #### Percy ESQUIVEL, 2142-6 ####[facility] LABIA [id number] [address] [address] [place] CNPNon 01-18-2024 CNPN Normal [facility] CNPNon 01-17-2024 CNPN Normal [facility] CNPNon 01-02-2024 CNPN Normal [facility] CNOVon 12-29-2023 CNOV Normal [facility] CNPNon 12-29-2023 CNPN Normal [facility] CNPNon 12-28-2023 CNPN Normal [facility] CNPNon 12-27-2023 CNPN Normal [facility] CNPNon 12-25-2023 CNPN Normal [facility] CNOVon 12-22-2023 CNOV Normal [facility] US KIDNEY/BLADDERon 12-15-19 US KIDNEY/BLADDER Normal [facility] Kidney - bilateral and Ur inary bladderon 12-15-2023 IMPRESSION: Normal sonographic appearance of the kidneys. No hydronephrosis. Significant post-void residual volume = 103 cc. Wash Tank Tender: AIDEN Transcribe Date/Time: Dec 15 2023 1:52P Dictated by : KEVIN CHAHAL MD This examination was interpreted and the report reviewed and electronically signed by: PERFECTO FERNANDEZ MD on Dec 15 2023 2:15PM [facility] DIVISION OF RADIOLOGY * * *Final Report* * * DATE OF EXAM: Dec 15 2023 1:49PM [address] KIDNEY/BLADDER / PROCEDURE REASON: Voiding dysfunction * * * * Physician Interpretation * * * * EXAMINATION: RENAL ULTRASOUND CLINICAL HISTORY: Chronic pain with urination. Incomplete voiding. TECHNIQUE: Sonography of the kidneys and urinary bladder was performed. Images were obtained and stored in a permanent archive. MQ: UR_1 COMPARISON: None RESULT: Right Kidney: -Renal length: 11.4 cm -Parenchyma: Normal parenchymal echogenicity. Normal parenchymal thickness. -Collecting system: No hydronephrosis. -Calculus: No echogenic, shadowing calculus. -Lesion: None. Left Kidney: -Renal length: 10.9 cm -Parenchyma: Normal parenchymal echogenicity. Normal parenchymal thickness. -Collecting system: No hydronephrosis. -Calculus: No echogenic, shadowing calculus. -Lesion: None. Bladder: Normal sonographic appearance. Pre-void volume: 197 cc. Post-void residual volume: 103 cc. DIVISION OF RADIOLOGY [facility]/2023 * * *Final Report* * * DATE OF EXAM: Dec 15 2023 1:49PM [facility] [address] [facility] KIDNEY/BLADDER / PROCEDURE REASON: Voiding dysfunction * * * * Physician Interpretation * * * * EXAMINATION: RENAL ULTRASOUND CLINICAL HISTORY: Chronic pain with urination. Incomplete voiding. TECHNIQUE: Sonography of the kidneys and urinary bladder was performed. Images were obtained and stored in a permanent archive. MQ: UR_1 COMPARISON: None RESULT: Right Kidney: -Renal length: 11.4 cm -Parenchyma: Normal parenchymal echogenicity. Normal parenchymal thickness. -Collecting system: No hydronephrosis. -Calculus: No echogenic, shadowing calculus. -Lesion: None. Left Kidney: -Renal length: 10.9 cm -Parenchyma: Normal parenchymal echogenicity. Normal parenchymal thickness. -Collecting system: No hydronephrosis. -Calculus: No echogenic, shadowing calculus. -Lesion: None. Bladder: Normal sonographic appearance. Pre-void volume: 197 cc. Post-void residual volume: 103 cc. IMPRESSION IMPRESSION: Normal sonographic appearance of the kidneys. No hydronephrosis. Significant post-void residual volume = 103 cc. Wash Tank Tender: AIDEN Transcribe Date/Time: Dec 15 2023 1:52P Dictated by : KEVIN CHAHAL MD This examination was interpreted and the report reviewed and electronically signed by: PERFECTO FERNANDEZ MD on Dec 15 2023 2:15PM EST [facility] Radiology Study observation (narrative) [facility] US Kidney - bilateral and Ur inary bladderOrdered By: [facility]cf Provider on 12-15-2023 [facility] CNPNon 12-05-2023 CNPN Normal [facility] ACTH Plas-ncon 11-29-2023 Corticotropin (P) [Mass/Vol] 11.7 pg/mL Normal 7.2-63.3 [facility] Comment on above: Order Comment: Speci men Type: BLOOD SPECIMENOrdering Facility: [facility] Address: [address] [place] [address] Result Comment: ACTH Reference Range: 7-10 am: 7.2 - 63.3 pg/mL Performed By: #### 2 141-0 ####[facility] LABCLIA [id number] [place] [address] [place] CNTHERAPYon 11-29-2023 CNTHERAPY Normal [facility] Cortis SerPl-ncon 11-29-19 24 Cortisol [Mass/Vol] 8.3 ug/dL Normal 4.8-19.5 [facility] Comment on above: Order Comment: Speci men Type: BLOOD SPECIMENOrdering Facility: [facility] Address: [address] [place] [address] Result Comment: Prov ided reference range is from 6-10 AM sample collection time.Cortisol Reference Range: 6-10 AM = 4.8-19.5 ug/dL, 4-8 PM = 2.5-11.9 ug/dL Performed By: #### D ALVIN, 2143-6 ####[facility] LABCLIA [id number] [place] [address] [place] DHEA-S BLDon 11-29-2023 DHEA-S [Mass/Vol] 354.6 ug/dL High 98.8-340.0 [facility] Comment on above: Order Comment: Speci men Type: BLOOD SPECIMENOrdering Facility: [facility] Address: [address] [place] [address] Result Comment: Refe rence ranges are age and gender specific. For additional information, reference range tables can be found in the laboratory test directory.The normal values are based on the following source: Dehydroepiandrosterone sulfate (DHEA S) [package insert V 17.0 [place]ian]. [facility], [place], [place]: January 2013. Performed By: #### Percy ESQUIVEL, 2143-6 ####[facility] [id number] [place] [address] [place] THERAPY NTon 11-29-2023 THERAPY NT Normal [facility] TOXICOLOGY SCREEN, ROUTINE U RINEon 11-29-2023 Amphetamines Confirm (U) [Mass/Vol] Negative Normal Negative [facility] Comment on above: Order Comment: Speci men Type: URINE SPECIMENOrdering Facility: [facility] Address: [address] [place] [address] Result Comment: Cuto ff threshold at 1000 ng/mL. Performed By: #### U TOX2 ####[facility] LABIA [id number] [place] [address] [place] BARBITURATES, URINE Negative Normal Negative [facility] Comment on above: Order Comment: Speci men Type: URINE SPECIMENOrdering Facility: [facility] Address: [address] [place] [address] Result Comment: Cuto ff threshold at 200 ng/mL. Performed By: #### U TOX2 ####[facility] LABIA [id number] [place] [address] [place] BENZODIAZEPINES, UR Negative Normal Negative [facility] Comment on above: Order Comment: Speci men Type: URINE SPECIMENOrdering Facility: [facility] Address: [address] [place] [address] Result Comment: Cuto ff threshold at 200 ng/mL. Performed By: #### U TOX2 ####[facility] LABCLIA [id number] [place] [address] [place] Cannabinoids Screen Ql (U) Negative Normal Negative [facility] Comment on above: Order Comment: Speci men Type: URINE SPECIMENOrdering Facility: [facility] Address: [address] [place] [address] Result Comment: Cuto ff threshold at 50 ng/mL. Performed By: #### U TOX2 ####[facility] LABIA [id number] [place] [address] [place] Cocaine Ql (U) Negative Normal Negative [facility] Comment on above: Order Comment: Speci men Type: URINE SPECIMENOrdering Facility: [facility] Address: [address] [place] [address] Result Comment: Cuto ff threshold at 300 ng/mL. Performed By: #### U TOX2 ####[facility] LABCLIA [id number] [place] [address] [place] Ethanol (U) [Mass/Vol] <11 Normal <11 [facility] Comment on above: Order Comment: Speci men Type: URINE SPECIMENOrdering Facility: [facility] Address: [address] [place] [address] Performed By: #### U TOX2 ####[facility] LABCLIA [id number] [place] [address] [place] Opiates Screen Ql (U) Negative Normal Negative [facility] Comment on above: Order Comment: Speci men Type: URINE SPECIMENOrdering Facility: [facility] Address: [address] [place] [address] Result Comment: Cuto ff threshold at 300 ng/mL. Performed By: #### U TOX2 ####[facility] LABCLIA [id number] [place] [address] [place] oxyCODONE cutoff Screen (U) [Mass/Vol] Negative Normal Negative [facility] Comment on above: Order Comment: Speci men Type: URINE SPECIMENOrdering Facility: [facility] Address: [address] [place] [address] Result Comment: Cuto ff threshold at 100 ng/mL. Performed By: #### U TOX2 ####[facility] LABCLIA [id number] [place] [address] [place] Phencyclidine Ql (U) Negative Normal Negative [facility] Comment on above: Order Comment: Speci men Type: URINE SPECIMENOrdering Facility: [facility] Address: [address] [place] [address] Result Comment: Cuto ff threshold at 25 ng/mL. Performed By: #### U TOX2 ####[facility] LABIA [id number] [place] [address] [place] Vaginitis DNA Probeon 2023 Jose David Negative Normal NEG [facility] Comment on above: Result Comment: for Jose David sp. Method of testing is a DNA probe intended for detection and identification of Jose David species, Gardnerella vaginalis, and Trichomonas vaginalis nucleic acid in vaginal fluid specimens from patients with symptoms of vaginitis/vaginosis. Performed By: #### V AGP #### [facility] [place], [place] [id number] [employer] Supervisor: Ramin Fenton MD [facility] [address] [place] [address] [place] [address] [employer] Supervisor: Priscila Alvarenga MD Gardnerella Negative Normal [facility] Comment on above: Result Comment: for Gardnerella vaginalis Performed By: #### V AGP #### [facility] [place], [place] [id number] [employer] Supervisor: Ramin Fenton MD [facility] [address] [place] [address] [employer] Supervisor: Priscila Alvarenga MD Trichomonas Negative Normal NEG [facility] Comment on above: Result Comment: for Trichomonas Vaginalis Performed By: #### V AGP #### [facility] [address] [place] [address] [employer] Supervisor: Ramin Fenton MD [facility] [address] [place], [place] [id number] [employer] Supervisor: Priscila Alvarenga MD Source .VAGINAL SWAB Normal [facility] Comment on above: Performed By: #### V AGP #### [facility] [address] [place] [address] [employer] Supervisor: Ramin Fenton MD [facility] [address] [place] [address] [place] [address] [employer] Supervisor: Priscila Alvarenga MD CNPNon 11-02-2023 CNPN Normal [facility] CNOVon 10-24-2023 CNOV Normal [facility] CNPTOUTREACHon 10-24-2023 CNPTOUTREACH Normal [facility] URINALYSIS, REFLEX MICROSCOP ICon 10-24-2023 Bilirubin Ql (U) Negative Negative [facility] Clarity (Unsp spec) Clear Clear [facility] Color (U) Light Yellow Yellow [facility] Glucose Test strip (U) [Mass/Vol] Negative Trace, Negative [facility] Hemoglobin Ql (U) Negative Negative, Trace [facility] Interpretation and review of laboratory results Normal [facility] Ketones Ql (U) Negative Negative, Trace [facility] Leukocyte esterase Test strip Ql (U) Negative Negative, 25 Charissa/uL [facility] Nitrite Ql (U) Negative Negative [facility] pH (U) 6.0 [pH] 5.0 - 8.0 [facility] Protein (U) [Mass/Vol] Negative Trace , Negative [facility] Specific gravity (U) [Rel density] 1.013 1.005 - 1.030 [facility] Urobilinogen Ql (U) Normal Normal [facility] Bilirubin Ql (U) Negative Normal Negative [facility] Comment on above: Order Comment: Speci men Type: URINE SPECIMENOrdering Facility: [facility] Address: [address] [place] [address] Performed By: #### L [id number] ####[facility] LABCLIA [id number] [place] [address] [place] Clarity (Unsp spec) Clear Normal Clear [facility] Comment on above: Order Comment: Speci men Type: URINE SPECIMENOrdering Facility: [facility] Address: [address] [place] [address] Performed By: #### L [id number] ####[facility] LABCLIA [id number] [place] [address] [place] Color (U) Light Yellow Normal Yellow [facility] Comment on above: Order Comment: Speci men Type: URINE SPECIMENOrdering Facility: [facility] Address: [address] [place] [address] Performed By: #### L [id number] ####[facility] LABCLIA [id number] [place] [address] [place] Glucose Test strip (U) [Mass/Vol] Negative Normal Trace, Negative [facility] Comment on above: Order Comment: Speci men Type: URINE SPECIMENOrdering Facility: [facility] Address: [address] [place] [address] Performed By: #### L [id number] ####[facility] LABCLIA [id number] [place] [address] [place] Hemoglobin Ql (U) Negative Normal Negative, Trace [facility] Comment on above: Order Comment: Speci men Type: URINE SPECIMENOrdering Facility: [facility] Address: [address] [place], [place] [id number] Performed By: #### L [id number] ####[facility] LABCLIA [id number] [place] [address] [id number], [place] [address] [place] Ketones Ql (U) Negative Normal Negative, Trace [facility] Comment on above: Order Comment: Speci men Type: URINE SPECIMENOrdering Facility: [facility] Address: [address] [place] [address] Performed By: #### L [id number] ####[facility] LABCLIA [id number] [place] [address] [place] Leukocyte esterase Test strip Ql (U) Negative Normal Negative, 25 Charissa/uL [facility] Comment on above: Order Comment: Speci men Type: URINE SPECIMENOrdering Facility: [facility] Address: [address] [place] [address] Performed By: #### L [id number] ####[facility] LABCLIA [id number] [place] [address] [place] Nitrite Ql (U) Negative Normal Negative [facility] Comment on above: Order Comment: Speci men Type: URINE SPECIMENOrdering Facility: [facility] Address: [address] [place] [address] Performed By: #### L [id number] ####[facility] LABCLIA [id number] [place] [address] [place] pH (U) 6.0 [pH] Normal 5.0-8.0 [facility] Comment on above: Order Comment: Speci men Type: URINE SPECIMENOrdering Facility: [facility] Address: [address] [place] [address] Performed By: #### L [id number] ####[facility] LABCLIA [id number] [place] [address] [place] Protein (U) [Mass/Vol] Negative Normal Trace , Negative [facility] Comment on above: Order Comment: Speci men Type: URINE SPECIMENOrdering Facility: [facility] Address: [address] [place] [address] Performed By: #### L [id number] ####[facility] LABCLIA [id number] [place] [address] [place] Specific gravity (U) [Rel density] 1.013 Normal 1.005-1.030 [facility] Comment on above: Order Comment: Speci men Type: URINE SPECIMENOrdering Facility: [facility] Address: [address] [place] [address] Performed By: #### L [id number] ####[facility] LABCLIA [id number] [place] [address] [place] Urobilinogen Ql (U) Normal Normal Normal [facility] Comment on above: Order Comment: Speci men Type: URINE SPECIMENOrdering Facility: [facility] Address: [address] [place] [address] Performed By: #### L [id number] ####[facility] LABCLIA [id number] [place] [address] [place] CNPNon 10-23-2023 CNPN Normal [facility] CNTHERAPYon 10-23-2023 CNTHERAPY Normal [facility] THERAPY NTon 10-23-2023 THERAPY NT Normal [facility] CNPNon 10-18-2023 CNPN Normal [facility] CNOVon 10-16-2023 CNOV Normal [facility] CNOVon 10-10-2023 CNOV Normal [facility] CNPNon 10-09-2023 CNPN Normal [facility] CNPNon 10-03-2023 CNPN Normal [facility] HCG, ,Urineon 10-01 Beta HCG ( test) Ql (U) Negative Normal NEG [facility] Comment on above: Result Comment: Spec imens with hCG levels near the threshold of the test (25 mIU/mL) may give a negative or indeterminate result. In such cases, another test should be performed with a new specimen in 48-72 hours. If early is suspected clinically in this setting, correlation with quantitative serum b-hCG level is suggested. [employer] has confirmed the use of plasma for this test. This has not been cleared or approved by the U.S. Food and Drug Administration. The FDA has determined that such clearance is not necessary. Performed By: #### V [facility] #### [facility] [address] [place] [address] [employer] Supervisor: Ramin Fenton MD [facility] [address] [place] [address] [employer] Supervisor: Priscila Alvarenga MD Surgical Pathology Reporton 10-02-2023 Surgical Pathology Report (NOTE) Path Number: [id number] -- Diagnosis -- Uterus and bilateral fallopian [...] CERVIX, BILATERAL FALLOPIAN TUBES Gross Description BETHANIE DINERO, UTERUS, CERVIX, BILATERAL FALLOPIAN TUBES Received in formalin is a uterus with attached cervix and bilateral fimbriated fallopian tube segments. Dimensions: Uterus and cervix 11.2 x 6.3 x 4.5 cm. Weight: Uterus and cervix 104 grams. Serosa: [place]. Cervix: 4.6 x 3.5 x 3.4 cm, [...] entirety, 19 right tube, fimbriated in entirety. tm Melanie Ga/kb2:10/03/2023 Microscopic Description 19 ANN reviewed. Microscopic examination performed. Processing Lab: [place] [id number] Interpretation Performed at [place] [id number] SURGICAL PATHOLOGY CONSULTATION Patient Name: BETHANIE DINERO [facility] Rec: [id number] [facility] ANATOMIC PATHOLOGY [address] [place] [address]. [place], [place] [id number] [facility] CNPNon 09-27-2023 CNPN Normal [facility] CNOVon 09-25-2023 CNOV Normal [facility] Basic metabolic 2000 panelon 08-07-2023 Anion gap [Moles/Vol] 7 mmol/L Low 9-18 [facility] Comment on above: Order Comment: Speci men Type: BLOOD SPECIMENOrdering Facility: [facility] Address: [address] [place] [address] Performed By: #### 1 9123-9, 05548-7 ####[facility] LABORATORYCLIA [id number] [facility] [place] [address] [place] Calcium [Mass/Vol] 9.7 mg/dL Normal 8.5-10.2 [facility] Comment on above: Order Comment: Speci men Type: BLOOD SPECIMENOrdering Facility: [facility] Address: [address] [place] [address] Performed By: #### 1 9123-9, 05772-8 ####[facility] LABORATORYCLIA [id number] [place] [address] [place] Chloride [Moles/Vol] 100 mmol/L Normal 97-105 [facility] Comment on above: Order Comment: Speci men Type: BLOOD SPECIMENOrdering Facility: [facility] Address: [address] [place] [address] Performed By: #### 1 9123-9, 47951-5 ####[facility] LABORATORYCLIA [id number] [place] [address] [place] CO2 [Moles/Vol] 29 mmol/L Normal 22-30 [facility] Comment on above: Order Comment: Speci men Type: BLOOD SPECIMENOrdering Facility: [facility] Address: [address] [place] [address] Performed By: #### 1 91239, 18384-4 ####[facility] LABORATORYCLIA [id number] [place] [address] [place] Creatinine [Mass/Vol] 0.87 mg/dL Normal 0.58-0.96 [facility] Comment on above: Order Comment: Speci men Type: BLOOD SPECIMENOrdering Facility: [facility] Address: [address] [place] [address] Performed By: #### 1 9123-9, 72783-6 ####[facility] LABORATORYCLIA [id number] [place] [address] [place] Creatinine and Glomerular filtration rate.predicted panel (S/P/Bld) 90 mL/min/1.73m??? Normal >=60 [facility] Comment on above: Order Comment: Speci men Type: BLOOD SPECIMENOrdering Facility: [facility] Address: [address] [place] [address] Result Comment: Irma mated Glomerular Filtration Rate [...] actual GFR. Performed By: #### 1 9123-9, 24406-7 ####[facility] [id number] [place] [address] [place] Glucose [Mass/Vol] 86 mg/dL Normal 74-99 [facility] Comment on above: Order Comment: Speci men Type: BLOOD SPECIMENOrdering Facility: [facility] Address: [address] [place] [address] Result Comment: The [place] Diabetes Association (ADA) provides guidance for cutoff [...] Standards of Medical Care in Diabetes 2016, [place] [employer]. Diabetes Care. 2016.39(Suppl 1). Performed By: #### 1 9123-9, 25075-9 ####[facility] LABORATORYCLIA [id number] [place] [address] [place] Potassium [Moles/Vol] 4.1 mmol/L Normal 3.7-5.1 [facility] Comment on above: Order Comment: Rey hurt Type: BLOOD SPECIMENOrdering Facility: [facility] Address: [address] [place] [address] Performed By: #### 1 9123-9, 72102-7 ####[facility] LABORATORYCLIA [id number] [place] [address] [place] Sodium [Moles/Vol] 136 mmol/L Normal 136-144 [facility] Comment on above: Order Comment: Speci men Type: BLOOD SPECIMENOrdering Facility: [facility] Address: [address] [place] [address] Performed By: #### 1 9123-9, 27881-6 ####[facility]ENTER[facility] [id number] [place], [place] [address] [place] [address] [place] Urea nitrogen [Mass/Vol] 9 mg/dL Normal 7-21 [facility] Comment on above: Order Comment: Speci men Type: BLOOD SPECIMENOrdering Facility: [facility] Address: [address] [place] [address] Performed By: #### 1 9123-9, 53186-2 ####[facility]ENTERIA [id number] [place], [place] [address] [place] [address] [place] CBC W Auto Differential pane l (Bld)on 08-07-2023 Basophils (Bld) [#/Vol] 0.03 10*3/uL Normal <0.11 [facility] Comment on above: Order Comment: Speci men Type: BLOOD SPECIMENOrdering Facility: [facility] Address: [address] [place] [address] Performed By: #### 5 7021-8 ####[facility]ENTERIA [id number] [address] [place] Basophils/100 WBC (Bld) 0.4 % Normal [facility] Comment on above: Order Comment: Speci men Type: BLOOD SPECIMENOrdering Facility: [facility] Address: [address] [place] [address] Performed By: #### 5 7021-8 ####[facility]ENTERIA [id number] [place] [id number] [place] Differential cell count method Nom (Bld) Auto Normal [facility] ital Comment on above: Order Comment: Speci men Type: BLOOD SPECIMENOrdering Facility: [facility] Address: [address] [place] [address] Performed By: #### 5 7021-8 ####[facility] LABORATORYIA [id number] [place] [address] [place] Eosinophils (Bld) [#/Vol] 0.17 10*3/uL Normal <0.46 [facility] Comment on above: Order Comment: Speci men Type: BLOOD SPECIMENOrdering Facility: [facility] Address: [address] [place] [address] Performed By: #### 5 7021-8 ####[facility] LABORATORYCLIA [id number] [place] [address] [place] Eosinophils/100 WBC (Bld) 2.2 % Normal [facility] Comment on above: Order Comment: Speci men Type: BLOOD SPECIMENOrdering Facility: [facility] Address: [address] [place] [address] Performed By: #### 5 7021-8 ####[facility]ENTERIA [id number] [place] [address] [place] Erythrocyte distribution width (RBC) [Ratio] 12.9 % Normal 11.5-15.0 [facility] Comment on above: Order Comment: Speci men Type: BLOOD SPECIMENOrdering Facility: [facility] Address: [address] [place] [address] Performed By: #### 5 7021-8 ####[facility]ENTERIA [id number] [place] [address] [place] Hematocrit (Bld) [Volume fraction] 44.1 % Normal 36.0-46.0 [facility] Comment on above: Order Comment: Speci men Type: BLOOD SPECIMENOrdering Facility: [facility] Address: [address] [place] [address] Performed By: #### 5 7021-8 ####[facility] LABORATORYIA [id number] [place] [id number] [place] Hemoglobin (Bld) [Mass/Vol] 14.8 g/dL Normal 11.5-15.5 [facility] Comment on above: Order Comment: Speci men Type: BLOOD SPECIMENOrdering Facility: [facility] Address: [address] [place] [address] Performed By: #### 5 7021-8 ####[facility] LABORATORYCLIA [id number] [place] [address] [place] Immature granulocytes (Bld) [#/Vol] 10*3/uL Normal <0.10 [facility] Comment on above: Order Comment: Speci men Type: BLOOD SPECIMENOrdering Facility: [facility] Address: [address] [place] [address] Performed By: #### 5 7021-8 ####[facility] LABORATORYCLIA [id number] [place] [address] [place] Immature granulocytes/100 WBC (Bld) 0.1 % Normal [facility] Comment on above: Order Comment: Speci men Type: BLOOD SPECIMENOrdering Facility: [facility] Address: [address] [place] [address] Performed By: #### 5 7021-8 ####[facility]ENTERIA [id number] [place] [address] [place] Lymphocytes (Bld) [#/Vol] 2.79 10*3/uL Normal 1.00-4.00 [facility] Comment on above: Order Comment: Speci men Type: BLOOD SPECIMENOrdering Facility: [facility] Address: [address] [place] [address] Performed By: #### 5 7021-8 ####[facility]ENTERIA [id number] [place] [id number] [place] Lymphocytes/100 WBC (Bld) 36.2 % Normal [facility] Comment on above: Order Comment: Speci men Type: BLOOD SPECIMENOrdering Facility: [facility] Address: [address] [place] [address] Performed By: #### 5 7021-8 ####[facility] LABORATORYIA [id number] [place] [address] [place] MCH (RBC) [Entitic mass] 30.0 pg Normal 26.0-34.0 [facility] Comment on above: Order Comment: Speci men Type: BLOOD SPECIMENOrdering Facility: [facility] Address: [address] [place] [address] Performed By: #### 5 7021-8 ####[facility] [id number] [place] [address] [place] MCHC (RBC) [Mass/Vol] 33.6 g/dL Normal 30.5-36.0 [facility] Comment on above: Order Comment: Speci men Type: BLOOD SPECIMENOrdering Facility: [facility] Address: [address] [place] [address] Performed By: #### 5 7021-8 ####[facility] [id number] [place] [id number] [place] MCV (RBC) [Entitic vol] 89.3 fL Normal 80.0-100.0 [facility] Comment on above: Order Comment: Speci men Type: BLOOD SPECIMENOrdering Facility: [facility] Address: [address] [place] [address] Performed By: #### 5 7021-8 ####[facility] [id number] [place] [address] [place] Monocytes (Bld) [#/Vol] 0.42 10*3/uL Normal <0.87 [facility] Comment on above: Order Comment: Speci men Type: BLOOD SPECIMENOrdering Facility: [facility] Address: [address] [place] [address] Performed By: #### 5 7021-8 ####[facility]IA [id number] [address] [place] Monocytes/100 WBC (Bld) 5.5 % Normal [facility] Comment on above: Order Comment: Speci men Type: BLOOD SPECIMENOrdering Facility: [facility] Address: [address] [place] [address] Performed By: #### 5 7021-8 ####[facility] [id number] [place] [id number] [place] Neutrophils (Bld) [#/Vol] 4.28 10*3/uL Normal 1.45-7.50 [facility] Comment on above: Order Comment: Speci men Type: BLOOD SPECIMENOrdering Facility: [facility] Address: [address] [place] [address] Performed By: #### 5 7021-8 ####[facility] LABORATORYCLIA [id number] [place] [address] [place] Neutrophils/100 WBC (Bld) 55.6 % Normal [facility] Comment on above: Order Comment: Speci men Type: BLOOD SPECIMENOrdering Facility: [facility] Address: [address] [place] [address] Performed By: #### 5 7021-8 ####[facility]IA [id number] [place] [address] [place] Nucleated RBC (Bld) [#/Vol] 10*3/uL Normal <0.01 [facility] Comment on above: Order Comment: Speci men Type: BLOOD SPECIMENOrdering Facility: [facility] Address: [address] [place] [address] Performed By: #### 5 7021-8 ####[facility]ENTERIA [id number] [place] [id number] [place] Nucleated RBC/100 WBC (Bld) [Ratio] 0.0 /100 WBC Normal [facility] Comment on above: Order Comment: Speci men Type: BLOOD SPECIMENOrdering Facility: [facility] Address: [address] [place] [address] Performed By: #### 5 7021-8 ####[facility] LABORATORYIA [id number] [place] [address] [place] Platelet mean volume (Bld) [Entitic vol] 11.3 fL Normal 9.0-12.7 [facility] l Comment on above: Order Comment: Speci men Type: BLOOD SPECIMENOrdering Facility: [facility] Address: [address] [place] [address] Performed By: #### 5 7021-8 ####[facility] LABORATORYCLIA [id number] [place] [address] [place] Platelets (Bld) [#/Vol] 327 10*3/uL Normal 150-400 [facility] Comment on above: Order Comment: Speci men Type: BLOOD SPECIMENOrdering Facility: [facility] Address: [address] [place] [address] Performed By: #### 5 7021-8 ####[facility] LABORATORYIA [id number] [place] [address] [place] RBC (Bld) [#/Vol] 4.94 10*6/uL Normal 3.90-5.20 [facility] Comment on above: Order Comment: Speci men Type: BLOOD SPECIMENOrdering Facility: [facility] Address: [address] [place] [address] Performed By: #### 5 7021-8 ####[facility]ENTERIA [id number] [place] [address] [facility] [place] WBC (Bld) [#/Vol] 7.70 10*3/uL Normal 3.70-11.00 [facility] Comment on above: Order Comment: Speci men Type: BLOOD SPECIMENOrdering Facility: [facility] Address: [address] [place] [address] Performed By: #### 5 7021-8 ####[facility] LABORATORYIA [id number] [address] [id number] [facility] [place] CNDSon 08-07-2023 CNDS HNO ID: [id number] Author: ALLISON CHANEL MD Service: Hospital Medicine [...] 08/03/2023 DISCHARGE DATE: 08/07/2023 ATTENDING PHYSICIAN: Allison Chanel MD Code Status: Full Code PCP: Noa [...] Consulting: Reji Streeter RN Nurse Practitioner: Britt aBrragan APRN.STAFF RESEARCH SCIENTIST Orders Placed This Encounter Smoking Cessation Education CONSULT TO ENDOCRINOLOGY (AV,FV,V[facility]UAL AT [facility]) Physician Consult MU FOLLOW UP PROVIDER F (more content not included)... [facility] CONSULTon 08-07-2023 CONSULT HNO ID: [id number] Author: JEISON OROZCO PA-C Service: Psychiatry Author Type: Physician Customer Care Manager Type: Consults Filed: 08/07/2023 16:03 Note Text: CL NEW - PSYCHIATRY INITIAL CONSULTATION NOTE SERVICE DATE: August 07, 2023 SERVICE TIME: 3:55 PM CONSULTING SERVICE : Psychiatry, requested by Dr. Chanel REASON FOR CONSULTATION: EVA. Visit Type: In person IDENTIFYING INFO: Ms. Dinero is a 33 year old female from [place], [place]. HISTORY OF PRESENT ILLNESS : The [...] with outpatient psychiatry closer to home in [facility]. Patient reports that she is well established with Courtney Mack PA-C. She is currently taking duloxetine and Xanax. She is also working with a therapist on a weekly basis at a clinic near [place]. Primary service consulted psychiatry due to concerns [...] or dependence SOCIAL HISTORY: Single 2 kids ANGLICAN FAMILY PSYCHIATRIC HISTORY: None FAMILY HISTORY Problem [...] Engaged readily (more content not included)... Normal [facility] CORTISOL, BASALon 08-07-2023 Cortisol baseline [Mass/Vol] 13.0 ug/dL Normal 4.8-19.5 [facility] Comment on above: Order Comment: Speci men Type: BLOOD SPECIMENOrdering Facility: [facility] Address: [address] [place] [address] Result Comment: Prov ided reference range is from 6-10 AM sample collection time. Cortisol Reference Range: 6-10 AM = 4.8-19.5 ug/dL, 4-8 PM = 2.5-11.9 ug/dL Performed By: #### C ORTBAS ####[facility] LABCLIA [id number] [place] [address] [place] CORTISOL, Tatiana 08-07-2023 CORTISOL, POST 26.4 ug/dL Normal [facility] Comment on above: Order Comment: Speci men Type: BLOOD SPECIMENOrdering Facility: [facility] Address: [address] [place] [address] Performed By: #### C ORTPST ####[facility] LABCLIA [id number] [address], [place] [address] [place] INTERPRETATION (ACTHST) Normal [facility] Comment on above: Order Comment: Speci men Type: BLOOD SPECIMENOrdering Facility: [facility] Address: [address] [place] [address] Result Comment: Afte r cortrosyn stimulation, a peak cortisol response greater than 12.6 ug/dL may indicate appropriate cortisol secretion. This result should be interpreted within the clinical context and other test results. Jamshid et al. Clinical Implications for Biochemical Diagnostic Thresholds of Adrenal Sufficiency Using a Highly Specific Cortisol Immunoassay. 2017 Clin. Biochem. 50:475-480. Performed By: #### C ORTPST ####[facility] LABCLIA [id number] [place] [address] [place] Magnesium SerPl-mCncon 08-07 Magnesium [Mass/Vol] 2.1 mg/dL Normal 1.7-2.3 [facility] Comment on above: Order Comment: Speci men Type: BLOOD SPECIMENOrdering Facility: [facility] Address: [address] [place] [address] Performed By: #### 1 9123-9, 89906-5 ####[facility] LABORATORYCLIA [id number] [facility] [id number] [place] NUTRITIONon 08-07-2023 NUTRITION HNO ID: [id number] Author: NICO LEONE RD Service: Nutrition Therapy [...] related history, Weight loss Estimated kilocalorie needs: 9255-5815 Calorie Calculation Method: 25-30 kcals/kg Estimated protein [...] a stimulant laxative. Weight loss seen in [facility] from 182-155# over 3 months but states [...] DATE: August 07, 2023 TIME: 12:21 PM Normal [facility] ACTH Plas-mCncon 08-04-2023 Corticotropin (P) [Mass/Vol] 1.0 pg/mL Low 7.2-63.3 [facility] Comment on above: Order Comment: Speci men Type: BLOOD SPECIMENOrdering Facility: [facility] Address: [address] [place] [address] Result Comment: ACTH Reference Range: 7-10 am: 7.2 - 63.3 pg/mL Performed By: #### 2 141-0 ####[facility] LABCLIA [id number] [address] ALLIED HEALTHon 08-04-2023 ALLIED HEALTH HNO ID: [id number] Author: ARIELLE ULLOA Chaplain Service: Spiritual Care Author Type: Bosom Presser Type: Allied Health Filed: 08/04/2023 17:25 Note Text: SPIRITUAL CARE ASSESSMENT SERVICE DATE: 08/04/2023 SERVICE TIME: 4:40p Visit with: Patient Length of visit (minutes): 45 Buddhism / Spirituality: Restorationist Reason: Referral from: Other: [place] Volunteer Purpose of Referral (if stated): Emotional [...] 2023 TIME: 5:23 PM PAGER/CONTACT #: [phone] [facility] CASE MANAGEMon 08-04-2023 CASE MANAGEM HNO ID: [id number] Author: TALI MCGEE RN Service: ? Author [...] consent language was provided to the patient/responsible constitution party. Patient of follow up regarding [employer] referral. SIGNATURE: Tali Mcgee RN PATIENT NAME: Bethanie Dinero DATE: August 04, 2023 TIME: 4:50 PM PAGER/CONTACT #: [phone] [facility] CASE MGT INIT ASSESon 2023 CASE MGT INIT ASSDENNIS HNO ID: [id number] Author: TALI MCGEE RN Service: ? Author Type: Registered Nurse Type: Care Mgt Initial Assessment Filed: 08/04/2023 16:39 Note Text: CARE MANAGEMENT: ASSESSMENT AND DISCHARGE PLAN SERVICE DATE: August 04, 2023 SERVICE TIME: 4:15 pm PCP: Noa Gauthier DO Primary Contact: Extended Emergency Contact Information Primary Emergency Contact: Eve Elizalde [facility] Relation: None Admission Status: Inpatient Insurance Provider: [facility] MEDICAID Discharge Planning requested by: Per Department Practice Potential Transition Plans Home;No Services Indicated Advance Directives Current Advance Directive: None Manager Transit Attempted to Assist with AD Completion: Yes Action: Education Provided;Other: See Comment (gave AD paperwork,may want to complete while here) Current Living Arrangements and Support Lives with: Children Type of Residence: Private Residence (House) Does the patient have to climb stairs at home?: Yes Support: Voodoo/viet community, Family members, Therapist How do you manage to accomplish the following: Independent: Medication Management;Going to the bathroom;Meals/Meal Prep;Ambulation;Dress Needs Assistance: Transportation to appointments/community; Bathe/Shower Current Services/Equipment Current Post-Acute Service(s): Other: See Comment Other Current Post-Acute Service(s): pt has a therapist and follows with out patient Psychiatry Discharge Planning Patient Goal(s): General wellness, Be able to go home [place] of Choice Explained: [place] of Choice Given: No Reason Not Given: [...] at Discharge: Transportation Arrangements: Uber/Lyft (through insurance [employer]) Needs Prior to Discharge: Needs Prior to [...] this CM to send a referral to [facility] which was done. Pt does state she has a good support system in her buddhism family and her cousin. Pt will likely need to use her [employer] transportation benefit for d/c transport home (she has never used it before so will need CM to assist w/ this) Otherwise no skilled needs have been identified at this time. SIGNATURE: Tali Mcgee RN PATIENT NAME: Bethanie Dinero DATE: August 04, 2023 TIME: 4:34 PM CONTACT #: [phone] Normal [facility] Cortnicolle Shay-Antoni 08-04-19 24 Cortisol [Mass/Vol] 0.5 ug/dL Low 4.8-19.5 [facility] Comment on above: Order Comment: Speci men Type: BLOOD SPECIMENOrdering Facility: [facility] Address: [address] [place] [address] Result Comment: Prov ided reference range is from 6-10 AM sample collection time. Cortisol Reference Range: 6-10 AM = 4.8-19.5 ug/dL, 4-8 PM = 2.5-11.9 ug/dL Performed By: #### 2 143-6, 01715-2, 2842-3 ####[facility] LABCLIA [id number] [facility] [id number] [address] [facility] ECHOon 08-04-2023 Echocardiography Echocardiography Report: Transthoracic [facility] Date of service: 08/04/2023 2:21:09 PM [...] * * Final * * * CC [employer] Medical Image : [id number] JEROME [facility] ED NOTEon 08-04-2023 ED NOTE HNO ID: [id number] Author: JACOBY REESE RN Service: Nursing Author Type: Registered Nurse Type: ED Notes Filed: 08/04/2023 02:44 Note Text: Report to Teresa BEAUCHAMP [facility] ED PROV NOTEon 08-04-2023 ED PROV NOTE HNO ID: [id number] Author: ISSA BOWERS DO Service: Emergency Medicine Author Type: Physician Type: ED Provider Notes Filed: 08/04/2023 00:42 Note Text: ED Provider Note Patient Name: Bethanie Dinero : 1990 SERVICE DATE: 08/03/23 History Patient presents with: Weakness: Generalized pain, dizziness, nausea discharged from [facility] yesterday seen for migraine and bradycardia. [...] 08/03/23 1841 08/03/23 1841 08/03/23 1841 08/03/23 1843 -- 153/97 74 37.1 ?C (98.8 ?F) [...] reviewed patient's records with her on her [facility] mobile cira. Management: Independent interpretation: -EKG: EKG shows normal sinus rhythm a (more content not included)... Normal [facility] FSH SerPl-aCncon 08-04-2023 Follitropin Qn 5.0 m[IU]/mL Normal See comment [place] Arnaud dunbar Comment on above: Order Comment: Rey hurt Type: BLOOD SPECIMENOrdering Facility: [facility] Address: [address] [place] [address] Result Comment: Refe rence range: Follicular: 3.5-12.5 mIU/mL Ovulation: 4.7-21.5 mIU/mL Luteal: 1.7-7.7 mIU/mL Postmenopausal: 25.8-134.8 mIU/mL Performed By: #### 2 143-6, 50828-8, 2842-3 ####[facility] LABCLIA [id number] [place] [address] [place] HCG Preg Ur Qlon 08-04-2023 HCG ( test) Ql (U) Negative Normal Negative [facility] Comment on above: Order Comment: Rey hurt Type: URINE SPECIMENOrdering Facility: [facility] Address: [address] [place] [address] Result Comment: This test is intended to aid in the early detection of . Very dilute urine samples, as indicated by a low specific gravity, may not contain customer sales representative levels of hCG. This test detects [...] for . Performed By: #### 2 106-3 ####[facility] LABORATORYCLIA [id number] [facility] [place] [address] [facility] HISTORY PHYSICALon HISTORY PHYSICAL HNO ID: [id number] Author: SAROJ THORNTON MD Service: Hospital Medicine Author Type: Physician Type: H&P Filed: 08/04/2023 05:24 Note Text: DEPARTMENT OF HOSPITAL MEDICINE HISTORY AND PHYSICAL EXAM SERVICE DATE: 08/04/2023 SERVICE TIME: 4:12 AM Primary Care Physician: Noa Gauthier, DO NIGHT AND WEEKEND COVERAGE: [place] COVERAGE: Days: [phone], please contact via ezzai - how to arabia Nights: [phone] - 3rd floor: please page CC Hospitalist night cover [phone] - 4W: please page CC Hospitalist night cover #[phone] - 5th floor: please page Hospitalist night cover #[phone] - SDU (17:00 - 19:00): Please page #[phone] - SDU (19:00 - 07:00): Please call [facility] at [phone] Subjective CHIEF COMPLAINT: Lightheadedness, bradycardia and hypotensive [...] Psychiatric/Behavioral: Ne (more content not included)... Normal [facility] LH SerPl-aCncon 08-04-2023 Lutropin Qn 9.6 m[IU]/mL Normal See comment [facility] Comment on above: Order Comment: Speci men Type: BLOOD SPECIMENOrdering Facility: [facility] Address: [address] [place] [address] Result Comment: Refe rence range: Follicular: 2.4-12.6 mIU/mL Midcycle: 14.0-95.6 mIU/mL Luteal: 1.0-11.4 mIU/mL Post Yvette: 7.7-58.5 mIU/mL Performed By: #### 3 016-3, 11631-4 ####[facility] LABORATORYCLIA [id number] [place] [address] [place] Prolactin SerPl-mCncon 08-04 Prolactin [Mass/Vol] 14.5 ng/mL Normal 4.5-26.8 [facility] Comment on above: Order Comment: Speci men Type: BLOOD SPECIMENOrdering Facility: [facility] Address: [address] [place] [address] Result Comment: Prol actin test is performed using the [employer] Electrochemiluminescence Immunoassay method. Results obtained with different methods or kits cannot be used interchangeably. Performed By: #### 2 143-6, 67610-4, 2842-3 ####[facility] LABCLIA [id number] [facility] [id number] [address] [place] TSH SerPl-aCncon 08-04-2023 TSH Qn 0.537 m[IU]/L Normal 0.270-4.200 [place] Jonah joseph Comment on above: Order Comment: Rey hurt Type: BLOOD SPECIMENOrdering Facility: [facility] Address: [address] [place] [address] Result Comment: If t he patient is , TSH reference range varies by gestational period: First Trimester (weeks 9-12): 0.180-2.990 mIU/L Second Trimester: 0.110-3.980 mIU/L Third Trimester: 0.480-4.710 mIU/L Jcarlos Jordan et al. A Practical Approach for the Verifications and Determination of Site- and Trimester-Specific Reference Intervals for Thyroid Function tests in . Thyroid, 2019:29:3:412-420. Jg Vazquez et al. 2017 Guidelines of the [place] Thyroid Association for the Diagnosis and Management of Thyroid Disease during and the . Thyroid, 2017:27:3:315-389. Performed By: #### 3 016-3, 07588-2 ####[facility] LABORATORYCLIA [id number] [place] [address] [place] ACTH BLDon 08-03-2023 Corticotropin (P) [Mass/Vol] Low 7.2 - 63.3 pg/mL [facility] ACTH Plas-mCncon 08-03-2023 Corticotropin (P) [Mass/Vol] <1.0 Low 7.2-63.3 [facility] Comment on above: Order Comment: Rey hurt Type: BLOOD SPECIMENOrdering Facility: [facility] Address: [address] [place] [address] Result Comment: ACTH Reference Range: 7-10 am: 7.2 - 63.3 pg/mLResult rechecked. Performed By: #### 2 141-0 ####[facility] LABCLIA [id number] [facility] [id number] [address] [place] CBC panel Auto (Bld)on 08-03 Erythrocyte distribution width (RBC) [Ratio] 12.9 % Normal 11.5-15.0 [facility] Comment on above: Order Comment: Speci men Type: BLOOD SPECIMENOrdering Facility: [facility] Address: [address] [place] [address] Performed By: #### 5 8410-2 ####[facility] LABORATORYIA [id number] [place], [place] [address] [place] [address] [place] Hematocrit (Bld) [Volume fraction] 41.3 % Normal 36.0-46.0 [facility] Comment on above: Order Comment: Speci men Type: BLOOD SPECIMENOrdering Facility: [facility] Address: [address] [place] [address] Performed By: #### 5 8410-2 ####[facility]ENTERIA [id number] [address] [place] Hemoglobin (Bld) [Mass/Vol] 13.8 g/dL Normal 11.5-15.5 [facility] Comment on above: Order Comment: Speci men Type: BLOOD SPECIMENOrdering Facility: [facility] Address: [address] [place] [address] Performed By: #### 5 8410-2 ####[facility]ENTERIA [id number] [place] [address] [place] MCH (RBC) [Entitic mass] 29.1 pg Normal 26.0-34.0 [facility] Comment on above: Order Comment: Speci men Type: BLOOD SPECIMENOrdering Facility: [facility] Address: [address] [place] [address] Performed By: #### 5 8410-2 ####[facility] LABORATORYIA [id number] [place] [address] [place] MCHC (RBC) [Mass/Vol] 33.4 g/dL Normal 30.5-36.0 [facility] Comment on above: Order Comment: Speci men Type: BLOOD SPECIMENOrdering Facility: [facility] Address: [address] [place] [address] Performed By: #### 5 8410-2 ####[facility] LABORATORYIA [id number] [place] [address] [place] MCV (RBC) [Entitic vol] 86.9 fL Normal 80.0-100.0 [facility] Comment on above: Order Comment: Speci men Type: BLOOD SPECIMENOrdering Facility: [facility] Address: [address] [place] [address] Performed By: #### 5 8410-2 ####[facility] LABORATORYIA [id number] [place] [address] [place] Nucleated RBC (Bld) [#/Vol] 10*3/uL Normal <0.01 [facility] Comment on above: Order Comment: Speci men Type: BLOOD SPECIMENOrdering Facility: [facility] Address: [address] [place] [address] Performed By: #### 5 8410-2 ####[facility] [id number] [place] [id number] [place] Platelet mean volume (Bld) [Entitic vol] 11.1 fL Normal 9.0-12.7 [facility] l Comment on above: Order Comment: Speci men Type: BLOOD SPECIMENOrdering Facility: [facility] Address: [address] [place] [address] Performed By: #### 5 8410-2 ####[facility]ENTERIA [id number] [place] [address] [place] Platelets (Bld) [#/Vol] 339 10*3/uL Normal 150-400 [facility] Comment on above: Order Comment: Speci men Type: BLOOD SPECIMENOrdering Facility: [facility] Address: [address] [place] [address] Performed By: #### 5 8410-2 ####[facility]ENTERIA [id number] [place] [address] [place] RBC (Bld) [#/Vol] 4.75 10*6/uL Normal 3.90-5.20 [facility] Comment on above: Order Comment: Speci men Type: BLOOD SPECIMENOrdering Facility: [facility] Address: [address] [place] [address] Performed By: #### 5 8410-2 ####[facility]ENTERIA [id number] [place] [address] [place] WBC (Bld) [#/Vol] 11.81 10*3/uL High 3.70-11.00 [facility] Comment on above: Order Comment: Joselitoi licha Type: BLOOD SPECIMENOrdering Facility: [facility] Address: [address] [place] [address] Performed By: #### 5 8410-2 ####[facility]ENTERIA [id number] [place] [address] [facility] CELIAC SCREENon 08-03-2023 GLIAD DEAMIDATED IGA QUAL Negative Normal Negative, Test not Indicated [facility] Comment on above: Order Comment: Rey hurt Type: BLOOD SPECIMENOrdering Facility: [facility] Address: [address] [place] [address] Result Comment: This is used as an aid in diagnosis of celiac disease. Clinical correlation is required.The following results were obtained with an [employer] Gliadin IgA MILAN Gliadin. Gliadin IgA values obtained with different manufacturers' assay methods may not be used interchangeably. The magnitude of the reported IgA levels cannot be correlated to an endpoint titer. Performed By: #### L [id number] ####[facility] LABCLIA [id number] [address] [place] Gliadin peptide IgA Qn (S) 5 Units Normal <20 [facility] Comment on above: Order Comment: Joselitoi licha Type: BLOOD SPECIMENOrdering Facility: [facility] Address: [address] [place] [address] Performed By: #### L [id number] ####[facility] LABCLIA [id number] [place] [id number] [place] INTERPRETATION No serological evide nce of celiac disease, however, if celiac disease is clinically suspected and patient is not on gluten-free diet, histological diagnosis may be considered. HLA testing may help with risk assessment. Normal [facility] Comment on above: Order Comment: Speci men Type: BLOOD SPECIMENOrdering Facility: [facility] Address: [address] [place] [address] Performed By: #### L [id number] ####[facility] LABCLIA [id number] [place] [address] [place] TRANSGLUTAMINASE IGA ABS INTERPRETATION Negative Normal Negative [facility] Comment on above: Order Comment: Speci men Type: BLOOD SPECIMENOrdering Facility: [facility] Address: [address] [place] [address] Result Comment: The following results were obtained with [employer] R h-tTG IgA MILAN.???R h-tTG IgA values obtained with different manufacturers' assay methods may not be used interchangeably. The magnitude of the reported IgA levels cannot be corelated to an endpoint???concentration.This is used as an aid in diagnosis of celiac disease. Clinical correlation is required. Performed By: #### L [id number] ####[facility] LABCLIA [id number] [place] [address] [place] tTG IgA Qn (S) <2 Normal <4 [facility] Comment on above: Order Comment: Speci men Type: BLOOD SPECIMENOrdering Facility: [facility] Address: [address] [place] [address] Performed By: #### L [id number] ####[facility] LABCLIA [id number] [place] [address] [place] CK CREATINE KINASEon 024 CK [Catalytic activity/Vol] 33 U/L Low 42 - 196 U/L [facility] CK SerPl-cCncon 08-03-2023 CK [Catalytic activity/Vol] 33 U/L Low 42-196 [facility] Comment on above: Order Comment: Speci men Type: BLOOD SPECIMENOrdering Facility: [facility] Address: [address] [place] [address] Performed By: #### 2 143-6, 2731-8, 2157-6 ####[facility] LABIA [id number] [place] [address] [place] CNOVon 08-03-2023 CNOV Normal [facility] CNPNon 08-03-2023 CNPN Normal [facility] CORTISOL BLDon 08-03-2023 Cortisol [Mass/Vol] 0.9 ug/dL Low 4.8 - 19 .5 ug/dL [facility] Calcium.ionized [Moles/Vol]o n 08-03-2023 Calcium.ionized (Bld) [Mass/Vol] 1.33 mmol/L High 1.08 - 1.30 mmol/L [facility] Calcium.ionized adjusted to pH 7.4 (Bld) [Moles/Vol] 1.29 mmol/L 1.08 - 1.30 mmol/L [facility] Calcium.ionized (Bld) [Mass/Vol] 1.33 mmol/L High 1.08-1.30 [facility] Comment on above: Order Comment: Speci men Type: BLOOD SPECIMENOrdering Facility: [facility] Address: [address] [place] [address] Performed By: #### 1 995-0 ####[facility] [id number] [address] [place] Calcium.ionized adjusted to pH 7.4 (Bld) [Moles/Vol] 1.29 mmol/L Normal 1.08-1.30 [facility] Comment on above: Order Comment: Speci men Type: BLOOD SPECIMENOrdering Facility: [facility] Address: [address] [place] [address] Performed By: #### 1 995-0 ####[facility] [id number] [place] [address] [place] Comprehensive metabolic 2000 panelon 08-03-2023 Albumin [Mass/Vol] 4.5 g/dL Normal 3.9-4.9 [facility] Comment on above: Order Comment: Speci men Type: BLOOD SPECIMENOrdering Facility: [facility] Address: [address] [place] [address] Performed By: #### 3 3762-6, ####[facility] LABORATORYCLIA [id number] [facility] [place] [address] [place] ALP [Catalytic activity/Vol] 82 U/L Normal 34-123 [facility] Comment on above: Order Comment: Speci men Type: BLOOD SPECIMENOrdering Facility: [facility] Address: [address] [place] [address] Performed By: #### 3 376-6, ####[facility] LABORATORYCLIA [id number] [place] [address] [place] ALT [Catalytic activity/Vol] 10 U/L Normal 7-38 [facility] Comment on above: Order Comment: Speci men Type: BLOOD SPECIMENOrdering Facility: [facility] Address: [address] [place] [address] Performed By: #### 3 376-6, ####[facility] LABORATORYCLIA [id number] [place] [address] [place] Anion gap [Moles/Vol] 10 mmol/L Normal 9-18 [facility] Comment on above: Order Comment: Speci men Type: BLOOD SPECIMENOrdering Facility: [facility] Address: [address] [place] [address] Performed By: #### 3 3762-6, ####[facility] LABORATORYCLIA [id number] [place] [address] [place] AST [Catalytic activity/Vol] 12 U/L Low 13-35 [facility] Comment on above: Order Comment: Speci men Type: BLOOD SPECIMENOrdering Facility: [facility] Address: [address] [place] [address] Performed By: #### 3 3762-6, ####[facility] LABORATORYCLIA [id number] [place] [address] [place] Bilirubin [Mass/Vol] 0.2 mg/dL Normal 0.2-1.3 [facility] Comment on above: Order Comment: Speci men Type: BLOOD SPECIMENOrdering Facility: [facility] Address: [address] [place] [address] Performed By: #### 3 3762-6, ####[facility] LABORATORYCLIA [id number] [place] [address] [place] Calcium [Mass/Vol] 9.5 mg/dL Normal 8.5-10.2 [facility] ospital Comment on above: Order Comment: Speci men Type: BLOOD SPECIMENOrdering Facility: [facility] Address: [address] [place] [address] Performed By: #### 3 3762-6, ####[facility] [id number] [place] [address] [place] Chloride [Moles/Vol] 102 mmol/L Normal 97-105 [facility] Comment on above: Order Comment: Speci men Type: BLOOD SPECIMENOrdering Facility: [facility] Address: [address] [place] [address] Performed By: #### 3 3762-6, ####[facility]ENTERIA [id number] [place] [address] [place] CO2 [Moles/Vol] 26 mmol/L Normal 22-30 [facility] ital Comment on above: Order Comment: Speci men Type: BLOOD SPECIMENOrdering Facility: [facility] Address: [address] [place] [address] Performed By: #### 3 3762-6, ####[facility] LABORATORYIA [id number] [place] [address] [place] Creatinine [Mass/Vol] 0.74 mg/dL Normal 0.58-0.96 [facility] Comment on above: Order Comment: Speci men Type: BLOOD SPECIMENOrdering Facility: [facility] Address: [address] [place] [address] Performed By: #### 3 3762-6, 24404-6 ####[facility] LABORATORYCLIA [id number] [facility] [place] [address] [place] Creatinine and Glomerular filtration rate.predicted panel (S/P/Bld) 110 mL/min/1.73m??? Normal >=60 [facility] Comment on above: Order Comment: Rey hurt Type: BLOOD SPECIMENOrdering Facility: [facility] Address: [address] [place] [address] Result Comment: Irma mated Glomerular Filtration Rate [...] actual GFR. Performed By: #### 3 3762-6, 19163-2 ####[facility]ENTERIA [id number] [facility] [place] [address] [place] Glucose [Mass/Vol] 77 mg/dL Normal 74-99 [facility] Comment on above: Order Comment: Rey hurt Type: BLOOD SPECIMENOrdering Facility: [facility] Address: [address] [place] [address] Result Comment: The [place] Diabetes Association (ADA) provides guidance for cutoff [...] Standards of Medical Care in Diabetes 2016, [place] Diabetes Association. Diabetes Care. 2016.39(Suppl 1). Performed By: #### 3 3762-6, 72082-4 ####[facility] LABORATORYIA [id number] [place] [address] [place] Potassium [Moles/Vol] 3.8 mmol/L Normal 3.7-5.1 [facility] Comment on above: Order Comment: Speci men Type: BLOOD SPECIMENOrdering Facility: [facility] Address: [address] [place], [place] [address] Performed By: #### 3 3762-6, 55356-1 ####[facility] LABORATORYCLIA [id number] [place] [address] [place] Protein [Mass/Vol] 7.3 g/dL Normal 6.3-8.0 [facility] ospital Comment on above: Order Comment: Speci men Type: BLOOD SPECIMENOrdering Facility: [facility] Address: [address] [place] [address] Performed By: #### 3 3762-6, 50410-3 ####[facility] [id number] [place] [address] [place] Sodium [Moles/Vol] 138 mmol/L Normal 136-144 [facility] ospital Comment on above: Order Comment: Speci men Type: BLOOD SPECIMENOrdering Facility: [facility] Address: [address] [place] [address] Performed By: #### 3 3762-6, 54534-4 ####[facility] [id number] [place] [address] [place] Urea nitrogen [Mass/Vol] 13 mg/dL Normal 7-21 [facility] Comment on above: Order Comment: Speci men Type: BLOOD SPECIMENOrdering Facility: [facility] Address: [address] [place] [address] Performed By: #### 3 3762-6, 22114-7 ####[facility] [id number] [place] [address] [place] Cortis SerPl-mCncon 08-03-19 24 Cortisol [Mass/Vol] 0.9 ug/dL Low 4.8-19.5 [facility] Comment on above: Order Comment: Speci men Type: BLOOD SPECIMENOrdering Facility: [facility] Address: [address] [place] [address] Result Comment: Prov ided reference range is from 6-10 AM sample collection time.Cortisol Reference Range: 6-10 AM = 4.8-19.5 ug/dL, 4-8 PM = 2.5-11.9 ug/dL Performed By: #### 2 143-6, 2731-8, 2157-6 ####[facility] LABCLIA [id number] [facility] [id number] VILLE [id number] [facility] ECG COMPLETEon 08-03-2023 ECG COMPLETE Ventricular Rate : 7 0 BPM Atrial Rate : 70 BPM P-R Interval : 144 ms QRS Duration : 88 ms Q-T Interval : 372 ms QTC Calculation(Bazett) : 401 ms Calculated P Kiowa : 70 degrees Calculated R Kiowa : 73 degrees Calculated T Kiowa : 25 degrees Normal sinus rhythm Normal ECG 648p no STEMI Confirmed by MD VALERA LISA ([id number]), technical writer and editor STEPHANIE MORALES ([id number]) on 08/04/2023 10:20:54 AM NAME : BETHANIE DINERO PID : [id number] : 1990 Gender : Female Race : Other ORD : [id number] Procedure Date : Aug 03 2023 18:46:14 Edit Date : Aug 04 2023 10:21:00 Diagnosis: Normal sinus rhythm Normal ECG 648p no STEMI Confirmed by MD VALERA LISA ([id number]), technical writer and editor STEPHANIE MORALES ([id number]) on 08/04/2023 10:20:54 AM Test Reason : Chest Pain Location : 302 : ED Overread By : MD VALERA LISA Edited By : STEPHANIE MORALES Referred By : , Acquired by : [id number], [facility] ED NOTEon 08-03-2023 ED NOTE HNO ID: [id number] Author: KEN ODOM RN Service: ? Author Type: Registered [...] with steady gait. Returned to waiting area. Normal [facility] ED Triage Noteon 08-03-2023 ED Triage Note HNO ID: [id number] Author: UMBERTO VALERA DO Service: Emergency Medicine Author Type: Physician Type: ED Triage Notes Filed: 08/03/2023 18:46 Note Text: ED INTAKE NOTE Patient Name: Bethanie Dinero Service Date: 08/03/23 BRIEF HPI: 33-year-old female who is seen in outside hospital yesterday diagnosed with a migraine and bradycardia followed up with neurologist today and is being evaluated for Arnold's disease versus Alejandrina's disease and she thinks she might be [...] diagnosis found. SIGNATURE: Umberto Valera DO Normal [facility] EKGon 08-03-2023 Electrocardiogram Ventricular Rate : 5 7 BPM Atrial Rate : 57 BPM P-R Interval : 150 ms QRS Duration : 86 ms Q-T Interval : 420 ms QTC Calculation(Bazett) : 408 ms Calculated P Kiowa : 61 degrees Calculated R Kiowa : 69 degrees Calculated T Kiowa : 22 degrees Sinus bradycardia Otherwise normal ECG Confirmed by MD GONZALEZ CHRISTOPHER ([id number]) on 08/23/2023 6:46:17 PM NAME : BETHANIE DINERO PID : [id number] : 1990 Gender : Female Race : Other ORD : Procedure Date : Aug 03 2023 20:52:44 Edit Date : Aug 23 2023 18:46:23 Diagnosis: Sinus bradycardia Otherwise normal ECG Confirmed by MD GONZALEZ CHRISTOPHER ([id number]) on 08/23/2023 6:46:17 PM Test Reason : CHEST PAIN Location : 302 : ED Overread By : MD GONZALEZ CHRISTOPHER Edited By : MD GONZALEZ CHRISTOPHER Referred By : , Acquired by : [id number], Normal [facility] HIGH SENSITIVITY TROPONIN T (INITIAL)on 08-03-2023 Troponin T.cardiac High sensitivity method [Mass/Vol] <6 Normal <12 [facility] Comment on above: Order Comment: Rey hurt Type: BLOOD SPECIMENOrdering Facility: [facility] Address: [address] [place] [address] Result Comment: When assessing risk for acute [...] for 30 day MACE. Performed By: #### L [id number] ####[facility] [id number] [place] [address] [place] HIGH SENSITIVITY TROPONIN T (SECOND)on 08-03-2023 Troponin T.cardiac High sensitivity method [Mass/Vol] <6 Normal <12 [facility] Comment on above: Order Comment: Rey hurt Type: BLOOD SPECIMENOrdering Facility: [facility] Address: [address] [place] [address] Result Comment: When assessing risk for acute [...] for 30 day MACE. Performed By: #### L [id number] ####[facility] LABORATORYCLIA [id number] [place] [address] [place] INTRINSIC FACTOR BLOCKING AB on 08-03-2023 INTRINSIC FACTOR BLOCKING ANTIBODY Negative Normal Negative [facility] Comment on above: Order Comment: Rey hurt Type: BLOOD SPECIMENOrdering Facility: [facility] Address: [address] [place] [address] Result Comment: Perf ormed By: [facility] [place] [id number] Director: Adela Parsons MD, PhDCLIA Number: [id number] Performed By: #### I NTFCT ####[facility] [id number] [place] [address] IgA [facility]20[facility] IgA [Mass/Vol] 277 mg/dL Normal 70-400 [facility] Comment on above: Order Comment: Speci men Type: BLOOD SPECIMENOrdering Facility: [facility] Address: [address] [place] [address] Performed By: #### 2 458-8 ####[facility] LABCLIA [id number] [place] [address] [place] NT-proBNP [facility] 08-03 Natriuretic peptide.B prohormone N-Terminal [Mass/Vol] 92 pg/mL Normal <125 [facility] Comment on above: Order Comment: Speci men Type: BLOOD SPECIMENOrdering Facility: [facility] Address: [address] [place] [address] Performed By: #### 3 3762-6, 69561-8 ####[facility] LABORATORYCLIA [id number] [facility] [place] [address] [place] PTH INTACT BLDon 08-03-2023 Parathyrin.intact [Mass/Vol] 37 pg/mL 15 - 65 pg/mL [facility] PTH-Intact [facility] 07-14 Parathyrin.intact [Mass/Vol] 37 pg/mL Normal 15-65 [facility] Comment on above: Order Comment: Speci men Type: BLOOD SPECIMENOrdering Facility: [facility] Address: [address] [place] [address] Performed By: #### 2 143-6, 2731-8, 2157-6 ####[facility] LABCLIA [id number] [place] [address] [place] VOLTAGE-GATED POTASSIUM WELLS ABon 08-03-2023 VOLTAGE-GATED POTASSIUM CHANNEL AB, SER 0 pmol/L Normal 0-31 [facility] Comment on above: Order Comment: Speci men Type: BLOOD SPECIMENOrdering Facility: [facility] Address: [place] [address] Result Comment: INTE RPRETIVE INFORMATION: Voltage-Gated Potassium [...] antibodies to leucine-rich,glioma-inactivated 1 protein (LGI1) or eshlsphnv-tkndxbnhlcllzkhzo-8 (CASPR2) instead of potassium channel antigens. Asubstantial number of [facility]-antibody positive cases are negativefor LGI1 and CASPR2 IgG autoantibodies, not all [facility]KC complexantigens are known. The clinical significance of this test canonly be determined in conjunction with the patient's clinicalhistory and related laboratory testing.This test was developed and its performance characteristicsdetermined by [facility]. It has not been cleared orapproved by the [place] Food and Drug Administration. This test wasperformed in a CLIA certified laboratory and is intended forclinical purposes.Performed By: [facility] [place], [place] [id number] Director: Adela Parsons MD, PhDCLIA Number: [id number] Performed By: #### V GKCAB ####[facility] CENTERIA [id number] [place] [address] XR CHEST 1V FRONTAL PORTon 0 08-03-2023 [...] exam with no evidence of acute disease. Wash Tank Tender: PSCSarai Transcribe Date/Time: Aug 03 2023 7:07P Dictated by : SARA SANTIAGO MD This examination was interpreted and the report reviewed and electronically signed by: SARA SANTIAGO MD on Aug 03 2023 7:08PM EST [id number] Normal [facility] CNOVon 08-01-2023 CNOV Normal [facility] CNTHERAPYon 07-31-2023 CNTHERAPY Normal [facility] THERAPY NTon 07-31-2023 THERAPY NT Normal [facility] CNOVon 07-27-2023 CNOV Normal [facility] [id number] 07-27-2023 ECG01 Normal [facility] CNTHERAPYon 07-24-2023 CNTHERAPY Normal [facility] Ferritinon 07-21-2023 Ferritin [Mass/Vol] 73 ng/mL 13 - 150 ng/mL [facility] Ferritin [Mass/Vol] 73 ng/mL Normal 13-150 [facility] Comment on above: Performed By: #### V AGP #### [address] [address] [employer] Supervisor: Ramin Fenton MD [facility] [address] [place] [address] [employer] Supervisor: Priscila Alvarenga MD Iron Binding Cap.on 07-21-19 24 % Fe Saturation 37 % Normal 20-55 [facility] Comment on above: Performed By: #### V D25, FERI, B12FOL, FEBC #### [place] [address] [place], [place] 5381408 [employer] Supervisor: Ramin Fenton MD #### CBC, TSH, CP #### [facility] [address] [place], [place] 8800[address] [employer] Supervisor: Priscila Alvarenga MD Iron [Mass/Vol] 86 ug/dL Normal 37-145 [facility] Comment on above: Performed By: #### V D25, FERI, B12FOL, FEBC #### [place] [place], [place] 0549[address] [employer] Supervisor: Ramin Fenton MD #### CBC, TSH, CP #### [facility] [address] [address] [employer] Supervisor: Priscila Alvarenga MD Total Fe Binding Cap 235 ug/dL Low 250-450 [facility] Comment on above: Performed By: #### V D25, FERI, B12FOL, FEBC #### [address] [id number] [employer] Supervisor: Ramin Fenton MD #### CBC, TSH, CP #### [facility] [address] [place] [address] [employer] Supervisor: Priscila Alvarenga MD Unbound Fe Bind Cap 149 ug/dL Normal 112-347 [facility] Comment on above: Performed By: #### V D25, FERI, B12FOL, FEBC #### [address] [id number] [employer] Supervisor: Ramin Fenton MD #### CBC, TSH, CP #### [facility] [address] [place] [address] [employer] Supervisor: Priscila Alvarenga MD Iron and TIBCon 07-21-2023 Iron [Mass/Vol] 86 ug/dL 37 - 145 ug/dL [facility] Iron binding capacity [Mass/Vol] 235 ug/dL Low 250 - 450 ug/dL [facility] Iron saturation [Mass fraction] 37 % 20 - 55 % [facility] UIBC 149 ug/dL 112 - 347 ug/dL [facility] No Panel Informationon 07-21 Interpretation and review of laboratory results Abnormal [facility] Vitamin D 25 Hydroxyon 07-21 25-hydroxyvitamin D3 [Mass/Vol] 18.9 ng/mL Low 29.9 - PINF ng/mL [facility] Comment on above: Reference Range: Vitamin D status Range Deficiency <20 ng/mL Mild Deficiency 20-30 ng/mL Sufficiency 30-100 ng/mL Toxicity >100 ng/mL Vitamin D 25 OHon 07-21-2023 Vitamin D 25 OH 18.9 ng/mL Low >29.9 [facility] Comment on above: Result Comment: Reference Range: Vitamin D status Range Deficiency <20 ng/mL Mild Deficiency 20-30 ng/mL Sufficiency 30-100 ng/mL Toxicity >100 ng/mL Performed By: #### V AGP #### [address] [address] [employer] Supervisor: Ramin Fenton MD [facility] [address] [place] [address] [place] [id number] [employer] Supervisor: Priscila Alvarenga MD B12/Folate Panelon Cobalamin (Vitamin B12) [Mass/Vol] 273 pg/mL Normal 232-1245 [facility] Comment on above: Performed By: #### V D25, FERI, B12FOL, FEBC #### [address] [address] [employer] Supervisor: Ramin Fenton MD #### CBC, TSH, CP #### [address] [place], [place] [phone] [employer] Supervisor: Priscila Alvarenga MD Folic Acid >20.0 Normal >4.8 [facility] Comment on above: Performed By: #### V D25, FERI, B12FOL, FEBC #### [address] [address] [employer] Supervisor: Ramin Fenton MD #### CBC, TSH, CP #### [facility] [address] [place] [address] [employer] Supervisor: Priscila Alvarenga MD CBCon 07-20-2023 Erythrocyte distribution width (RBC) [Ratio] 12.9 % 11.8 - 14.4 % [facility] Hematocrit (Bld) [Volume fraction] 39.4 % 36.3 - 47.1 % [facility] Hemoglobin (Bld) [Mass/Vol] 13.3 g/dL 11.9 - 15.1 g/dL [facility] MCH (RBC) [Entitic mass] 30.0 pg 25.2 - 33.5 pg [facility] MCHC (RBC) [Mass/Vol] 33.8 g/dL 28.4 - 34.8 g/dL [facility] MCV (RBC) [Entitic vol] 88.7 fL 82.6 - 102.9 fL [facility] Nucleated RBC/100 WBC (Bld) [Ratio] 0.0 % 0.0 per 100 WBC [facility] Platelet mean volume (Bld) [Entitic vol] 10.5 fL 8.1 - 13.5 fL [facility] Platelets (Bld) [#/Vol] 314 10*3/uL [facility] RBC (Bld) [#/Vol] 4.44 10*6/uL 3.95 - 5.1 1 m/uL [facility] WBC other (Bld) [#/Vol] 7.2 [facility] Erythrocyte distribution width (RBC) [Ratio] 12.9 % Normal 11.8-14.4 [facility] Comment on above: Performed By: #### V D25, FERI, B12FOL, FEBC #### [facility] [address] [place] [address] [employer] Supervisor: Ramin Fenton MD #### CBC, TSH, CP #### [facility] [address] [place] [address] [employer] Supervisor: Priscila Alvarenga MD Hematocrit (Bld) [Volume fraction] 39.4 % Normal 36.3-47.1 [facility] Comment on above: Performed By: #### V D25, FERI, B12FOL, FEBC #### [address] [address] [employer] Supervisor: Ramin Fenton MD #### CBC, TSH, CP #### [address] [place] [address] [employer] Supervisor: Priscila Alvarenga MD Hemoglobin (Bld) [Mass/Vol] 13.3 g/dL Normal 11.9-15.1 [facility] Comment on above: Performed By: #### V D25, FERI, B12FOL, FEBC #### [address] [id number] [employer] Supervisor: Ramin Fenton MD #### CBC, TSH, CP #### [address] [place] [phone] [employer] Supervisor: Priscila Alvarenga MD MCH (RBC) [Entitic mass] 30.0 pg Normal 25.2-33.5 [facility] Comment on above: Performed By: #### V D25, FERI, B12FOL, FEBC #### [address] [id number] [employer] Supervisor: Ramin Fenton MD #### CBC, TSH, CP #### [address] [place] [phone] [employer] Supervisor: Priscila Alvarenga MD MCHC (RBC) [Mass/Vol] 33.8 g/dL Normal 28.4-34.8 [facility] Comment on above: Performed By: #### V D25, FERI, B12FOL, FEBC #### [address] [id number] [employer] Supervisor: Ramin Fenton MD #### CBC, TSH, CP #### [facility] [address] [place], [place] [id number] [employer] Supervisor: Priscila Alvarenga MD MCV (RBC) [Entitic vol] 88.7 fL Normal 82.6-102.9 [facility] Comment on above: Performed By: #### V D25, FERI, B12FOL, FEBC #### [address] [address] [employer] Supervisor: Ramin Fenton MD #### CBC, TSH, CP #### [facility] [address] [place], [place] [id number] [employer] Supervisor: Priscila Alvarenga MD NRBC Automated 0.0 per 100 WBC Normal 0.0 [facility] Comment on above: Performed By: #### V D25, FERI, B12FOL, FEBC #### [address] [address] [employer] Supervisor: Ramin Fenton MD #### CBC, TSH, CP #### [facility] [address] [place], [place] 7188583 [employer] Supervisor: Priscila Alvarenga MD Platelet mean volume (Bld) [Entitic vol] 10.5 fL Normal 8.1-13.5 [facility] Comment on above: Performed By: #### V D25, FERI, B12FOL, FEBC #### [address] [address] [employer] Supervisor: Ramin Fenton MD #### CBC, TSH, CP #### [facility] [address] [place] [address] [employer] Supervisor: Priscila Alvarenga MD Platelets (Bld) [#/Vol] 314 10*3/uL Normal 138-453 [facility] Comment on above: Performed By: #### V D25, FERI, B12FOL, FEBC #### [address] [address] [employer] Supervisor: Ramin Fenton MD #### CBC, TSH, CP #### [facility] [address] [place] [address] Dr[address] [place], [place] [id number] [employer] Supervisor: Priscila Alvarenga MD RBC (Bld) [#/Vol] 4.44 10*6/uL Normal 3.95-5.11 [facility] Comment on above: Performed By: #### V D25, FERI, B12FOL, FEBC #### [address] [address] [employer] Supervisor: Ramin Fenton MD #### CBC, TSH, CP #### [address] [place], [place] [id number] [employer] Supervisor: Priscila Alvarenga MD WBC (Bld) [#/Vol] 7.2 10*3/uL Normal 3.5-11.3 [facility] Comment on above: Performed By: #### V D25, FERI, B12FOL, FEBC #### [address] [address] [employer] Supervisor: Ramin Fenton MD #### CBC, TSH, CP #### [address] [place], [place] [id number] [employer] Supervisor: Priscila Alvarenga MD Comp Metabolic Profon 2023 Albumin [Mass/Vol] 4.3 g/dL Normal 3.5-5.2 [facility] Comment on above: Performed By: #### V D25, FERI, B12FOL, FEBC #### [address] [place] [address] [employer] Supervisor: Ramin Fenton MD #### CBC, TSH, CP #### [facility] [address] [place] [address] [place] [place], [place] [id number] [employer] Supervisor: Priscila Alvarenga MD Albumin/Glob Ratio 1.6 Normal 1.0-2.5 [facility] Comment on above: Performed By: #### V D25, FERI, B12FOL, FEBC #### [address] [place] [place] [address] [employer] Supervisor: Ramin Fenton MD #### CBC, TSH, CP #### [facility] [address] [place] [address] [place] [place], [place] [id number] [employer] Supervisor: Priscila Alvarenga MD Alkaline Phos 71 U/L Normal 35-104 [facility] Comment on above: Performed By: #### V D25, FERI, B12FOL, FEBC #### [address] [address] [employer] Supervisor: Ramin Fenton MD #### CBC, TSH, CP #### [facility] [address] [place] [address] [place], [place] [id number] [employer] Supervisor: Priscila Alvarenga MD ALT [Catalytic activity/Vol] 12 U/L Normal 5-33 [facility] Comment on above: Performed By: #### V D25, FERI, B12FOL, FEBC #### [address] [address] [employer] Supervisor: Ramin Fenton MD #### CBC, TSH, CP #### [address] [place], [place] [id number] [employer] Supervisor: Priscila Alvarenga MD Anion gap [Moles/Vol] 8 mmol/L Low 9-17 [facility] Comment on above: Performed By: #### V D25, FERI, B12FOL, FEBC #### [address] [id number] [employer] Supervisor: Ramin Fenton MD #### CBC, TSH, CP #### [facility] [address] [place], [place] 087[address] [employer] Supervisor: Priscila Alvarenga MD AST [Catalytic activity/Vol] 12 U/L Normal <32 [facility] Comment on above: Performed By: #### V D25, FERI, B12FOL, FEBC #### [address] [address] [employer] Supervisor: Ramin Fenton MD #### CBC, TSH, CP #### [address] [place], [place] 89[address] [employer] Supervisor: Priscila Alvarenga MD Bilirubin [Mass/Vol] 0.6 mg/dL Normal 0.3-1.2 [facility] Comment on above: Performed By: #### V D25, FERI, B12FOL, FEBC #### [address] [address] [employer] Supervisor: Ramin Fenton MD #### CBC, TSH, CP #### [address] [place] [address] [employer] Supervisor: Priscila Alvarenga MD BUN/CRE Ratio 12 Normal 9-20 [facility] Comment on above: Performed By: #### V D25, FERI, B12FOL, FEBC #### [address] [address] [employer] Supervisor: Ramin Fenton MD #### CBC, TSH, CP #### [address] [place] [address] [employer] Supervisor: Priscila Alvarenga MD Calcium [Mass/Vol] 8.9 mg/dL Normal 8.6-10.4 [facility] Comment on above: Performed By: #### V D25, FERI, B12FOL, FEBC #### [address] [id number] [employer] Supervisor: Ramin Fenton MD #### CBC, TSH, CP #### [address] [place] [address] [employer] Supervisor: Priscila Alvarenga MD Chloride [Moles/Vol] 101 mmol/L Normal 98-107 [facility] Comment on above: Performed By: #### V D25, FERI, B12FOL, FEBC #### [address] [address] [employer] Supervisor: Ramin Fenton MD #### CBC, TSH, CP #### [facility] [address] [place] [address] [place], [place] [id number] [employer] Supervisor: Priscila Alvarenga MD CO2 [Moles/Vol] 25 mmol/L Normal 20-31 [facility] Comment on above: Performed By: #### V D25, FERI, B12FOL, FEBC #### [address] [address] [employer] Supervisor: Ramin Fenton MD #### ROBERT, TSH, CP #### [address] [place], [place] 0[address] [employer] Supervisor: Priscila Alvarenga MD Creatinine [Mass/Vol] 0.6 mg/dL Normal 0.5-0.9 [facility] Comment on above: Performed By: #### V D25, FERI, B12FOL, FEBC #### [address] [address] [employer] Supervisor: Ramin Fenton MD #### CBC, TSH, CP #### [facility] [address] [place] [address] [place] [address] [employer] Supervisor: Priscila Alvarenga MD GFR/1.73 sq M.predicted among non-blacks MDRD (S/P/Bld) [Vol rate/Area] mL/min/{1.73_m2} Normal >60 [facility] Comment on above: Result Comment: These results [...] tubular secretion. Performed By: #### V D25, FERI B12FOL, FEBC #### [address] [address] [employer] Supervisor: Ramin Fenton MD #### CBC, TSH, CP #### [address] [place], [place] [id number] [employer] Supervisor: Priscila Alvarenga MD Glucose [Mass/Vol] 76 mg/dL Normal 70-99 [facility] Comment on above: Performed By: #### Jessie D25, FERI B12FOL, FEBC #### [address] [address] [employer] Supervisor: Ramin Fenton MD #### ROBERT, TSH, CP #### [address] [place], [place] 549[address]83 [employer] Supervisor: Priscila Alvarenga MD Potassium [Moles/Vol] 4.1 mmol/L Normal 3.7-5.3 [facility] Comment on above: Performed By: #### V D25, FERI, B12FOL, FEBC #### [address] [address] [employer] Supervisor: Ramin Fenton MD #### CBC, TSH, CP #### [address] [place], [place] 897[address]83 [employer] Supervisor: Priscila Alvarenga MD Protein [Mass/Vol] 7.0 g/dL Normal 6.4-8.3 [facility] Comment on above: Performed By: #### V D25, FERI, B12FOL, FEBC #### [address] [address] [employer] Supervisor: Ramin Fenton MD #### CBC, TSH, CP #### [facility] [address] [place] [address] [employer] Supervisor: Priscila Alvarenga MD Sodium [Moles/Vol] 134 mmol/L Low 135-144 [facility] Comment on above: Performed By: #### V D25, FERI, B12FOL, FEBC #### [place] [address] [place], [place] [address] [employer] Supervisor: Ramin Fenton MD #### CBC, TSH, CP #### [facility] [address] [place] [address] [employer] Supervisor: Priscila Alvarenga MD Urea nitrogen [Mass/Vol] 7 mg/dL Normal 6-20 [facility] Comment on above: Performed By: #### V D25, FERI, B12FOL, FEBC #### [address] [place] [place], [place] [id number] [employer] Soap Supervisor: Ramin Fenton MD #### CBC, TSH, CP #### [facility] [address] [place] [address] [place] [address] [employer] Soap Supervisor: Priscila Alvarenga MD Comprehensive Metabolic Pane [facility] 07-20-2023 Albumin [Mass/Vol] 4.3 g/dL 3.5 - 5.2 g/dL [facility] Albumin/Globulin [Mass ratio] 1.6 {ratio} 1.0 - 2.5 [facility] ALP [Catalytic activity/Vol] 71 U/L 35 - 104 U/L [facility] ALT [Catalytic activity/Vol] 12 U/L 5 - 33 U/L [facility] Anion gap [Moles/Vol] 8 mmol/L Low 9 - 17 mmol/L [facility] AST [Catalytic activity/Vol] 12 U/L NINF - 32 U/L [facility] Bilirubin [Mass/Vol] 0.6 mg/dL 0.3 - 1 .2 mg/dL [facility] Calcium [Mass/Vol] 8.9 mg/dL 8.6 - 10. 4 mg/dL [facility] Chloride [Moles/Vol] 101 mmol/L 98 - 10 7 mmol/L [facility] CO2 [Moles/Vol] 25 mmol/L 20 - 31 mmol/L [facility] Creatinine [Mass/Vol] 0.6 mg/dL 0.5 - 0.9 mg/dL [facility] GFR/1.73 sq M.predicted MDRD (S/P/Bld) [Vol rate/Area] - PINF [facility] Comment on above: These results are not [...] [Mass/Vol] 76 mg/dL 70 - 99 mg/dL [facility] Interpretation and review of laboratory results Abnormal [facility] Potassium [Moles/Vol] 4.1 mmol/L 3.7 - 5.3 mmol/L [facility] Protein [Mass/Vol] 7.0 g/dL 6.4 - 8.3 g/dL [facility] Sodium [Moles/Vol] 134 mmol/L Low 135 - 144 mmol/L [facility] Urea nitrogen [Mass/Vol] 7 mg/dL 6 - 20 mg/dL [facility] Urea nitrogen/Creatinine [Mass ratio] 12 mg/mg 9 - 20 [facility] No Panel Informationon 07-20 [facility] TSHon 07-20-2023 TSH Qn 0.84 m[IU]/L [facility] Thyroid Stim. Horm.on 2023 Thyroid Stim. Horm. 0.84 uIU/mL Normal 0.30-5.00 [facility] Comment on above: Performed By: #### V D25, FERArnav, B12FOL, FEBC #### [facility] [address] [place] [address] [employer] Soap Supervisor: Ramin Fenton MD #### CBC, TSH, CP #### [facility] [address] [place] [address] [place] [address] [employer] Soap Supervisor: Priscila Alvarenga MD Vitamin B12 & Folateon 07-20 Cobalamin (Vitamin B12) [Mass/Vol] 273 pg/mL 232 - 1245 pg/mL [facility] Folate [Mass/Vol] ng/mL 4.8 - PINF ng/mL [facility] CNOVon 06-30-2023 CNOV Normal [facility] CNCOon 06-29-2023 CNCO Letter Text Normal [facility] Vaginitis DNA Probeon 2023 Jose David Negative Normal NEG [facility] Comment on above: Result Comment: for Jose David sp. Method of testing is a DNA probe intended for detection and identification of Jose David species, Gardnerella vaginalis, and Trichomonas vaginalis nucleic acid in vaginal fluid specimens from patients with symptoms of vaginitis/vaginosis. Performed By: #### V AGP #### [address] [place] [address] [employer] Soap Supervisor: Ramin Fenton MD [facility] [address] [place] [address] [place] [address] [employer] Soap Supervisor: Priscila Alvarenga MD Gardnerella Positive Abnormal [facility] Comment on above: Result Comment: for Gardnerella vaginalis Performed By: #### V AGP #### [address] [address] [employer] Soap Supervisor: Ramin Fenton MD [facility] [address] [place] [address] [place] [address] [employer] Soap Supervisor: Priscila Alvarenga MD Trichomonas Negative Normal [facility] Comment on above: Result Comment: for Trichomonas Vaginalis Performed By: #### V AGP #### [address] [place] [address] [employer] Soap Supervisor: Ramin Fenton MD [facility] [address] [place] [address] Dr. [place] [id number] [employer] Soap Supervisor: Priscila Alvarenga MD Source .VAGINAL SWAB Normal [facility] Comment on above: Performed By: #### V AGP #### [facility] [address] [place] [address] [employer] Soap Supervisor: Ramin Fenton MD [facility] [address] [place] [address] Dr. [place] [id number] [employer] Soap Supervisor: Priscila Alvarenga MD CNOVon 06-19-2023 CNOV Normal [facility] CNPNon 06-19-2023 CNPN Normal [facility] Cult,Urineon 06-16-2023 Cult,Urine Specimen Description .CLEAN CATCH URINE Culture NO SIGNIFICANT GROWTH Report Status FINAL 06/16/2023 [facility] Comment on above: Performed By: #### V AGP #### [facility] [address] [place] [address] [employer] Soap Supervisor: Ramin Fenton MD [facility] [address] [place] [address] Dr. [place] [id number] [employer] Soap Supervisor: Priscila Alvarenga MD No Panel Informationon 06-15 [...] right ovarian cyst. No follow-up imaging necessary. [facility] Vinod Yi MD - 06/15/2023 EXAMINATION: PELVIC [...] right ovarian cyst. No follow-up imaging necessary. [facility] Radiology Study observation (narrative) [facility] No Panel InformationOrdered By: Vinod Ponce on 06-15-2023 [facility] Work Phone: Urinalysis, Routineon 2023 Bilirubin, SemiQt,Ur Negative Normal NEG [facility] Comment on above: Performed By: #### U MAURICIO UA #### [facility] [address] [place] [address] [employer] Soap Supervisor: Priscila Alvarenga MD Blood, Urine Negative Normal NEG [facility] Comment on above: Performed By: #### U MAURICIO UA #### [facility] [address] [place] [address] [employer] Soap Supervisor: Priscila Alvarenga MD Clarity (U) Clear Normal CLEAR [facility] Comment on above: Performed By: #### U MAURICIO UA #### [facility] [address] [place] [address] Dr. [place], [place] 139[address] [employer] Soap Supervisor: Priscila Alvarenga MD Color (U) Yellow Normal YEL [facility] Comment on above: Performed By: #### U MICAO, UA #### [facility] [address] [place] [address] Dr. [place], [place] 9307483 [employer] Soap Supervisor: Priscila Alvarenga MD Glucose Ql (U) Negative Normal NEG [facility] in Hospital Comment on above: Performed By: #### U MICAO, UA #### [facility] [address] [place] [address] Dr. [place], [place] [id number] [employer] Soap Supervisor: Priscila Alvarenga MD Ketones Ql (U) TRACE Abnormal NEG [facility] Comment on above: Performed By: #### U MICAO, UA #### [facility] [address] [place] [address] Dr[place], [place] 0886[address] [employer] Soap Supervisor: Priscila Alvarenga MD Leukocyte esterase Test strip Ql (U) SMALL Abnormal NEG [facility] Comment on above: Performed By: #### U MICAO, UA #### [address] [place], [place] [address] [employer] Soap Supervisor: Priscila Alvarenga MD Nitrite,Ur Negative Normal NEG [facility] Comment on above: Performed By: #### U MICAO, UA #### [facility] [address] [place] [address] Dr. [place], [place] 3827[address] [employer] Soap Supervisor: Priscila Alvarenga MD PH,Ur 8.0 Normal 5.0-9.0 [facility] Comment on above: Performed By: #### U MICAO, UA #### [facility] [address] [place] [address] Dr. [place], [place] 1672483 [employer] Soap Supervisor: Priscila Alvarenga MD Protein Ql (U) 1+ mg/dL Abnormal NEG [facility] Comment on above: Performed By: #### U MICAO, UA #### [facility] [address] [place] [address] Dr. [place], [place] 2850683 [employer] Soap Supervisor: Priscila Alvarenga MD Spec. Orofino,Ur 1.015 Normal 1.010-1.020 [facility] Comment on above: Performed By: #### U MICAO, UA #### [facility] [address] [place] [address] Dr. [place], [place] 8123583 [employer] Soap Supervisor: Priscila Alvarenga MD Urobilinogen,Ur Normal Normal 0.0-1.0 [facility] Comment on above: Performed By: #### U KERWINO, UA #### [address] [place], [facility] [employer] Soap Supervisor: Priscila Alvarenga MD Urinalysis,Microon 4 Bacteria 2+ Abnormal NONE [facility] Comment on above: Performed By: #### U KERWINO, UA #### [address] [place], [facility] [employer] Soap Supervisor: Priscila Alvarenga MD Epithelial cells LM Ql (Urine sed) 10 TO 20 Normal 0-25 [facility] Comment on above: Performed By: #### U KERWINO, UA #### [address] [place], [place] [address]83 [employer] Soap Supervisor: Priscila Alvarenga MD Urine RBC's 0 TO 2 Normal 0-2 [facility] Comment on above: Performed By: #### U MICAO, UA #### [address] [place], [place] [address]83 [employer] Soap Supervisor: Priscila Alvarenga MD Urine WBC's 2 TO 5 Normal 0-5 [facility] Comment on above: Performed By: #### U MICAO, UA #### [address] [place] [address] [employer] Soap Supervisor: Priscila Alvarenga MD Yeast PRESENCE NOTED Abnormal NONE [facility] Comment on above: Performed By: #### U MICAO, UA #### [facility] [address] [place] [address] [employer] Soap Supervisor: Priscila Alvarenga MD [facility] 03-31-2023 [facility] HNO ID: [id number] Author: Blessed Singleton RT(R) Service: Radiology Author Type: [employer] Type: Allied Health Filed: 03/31/2023 9:44 PM [...] Inpatient: see LDA documentation SIGNED BY: RT Johnathon(R) March 31, 2023 9:44 PM Normal [facility] Basic metabolic 2000 panelon 03-31-2023 Anion gap [Moles/Vol] 10 mmol/L Normal 9-18 [facility] Comment on above: Order Comment: Speci men Type: BLOOD SPECIMENOrdering Facility: [facility] Address: [address] [place] [address] Performed By: #### 2 4321-2 ####[facility] LABORATORYCLIA [id number] [place] [address] [place] Calcium [Mass/Vol] 9.0 mg/dL Normal 8.5-10.2 [facility]ital Comment on above: Order Comment: Speci men Type: BLOOD SPECIMENOrdering Facility: [facility] Address: [address] [place] [address] Performed By: #### 2 4321-2 ####[facility] LABORATORYCLIA [id number] [place] [address] [place] Chloride [Moles/Vol] 105 mmol/L Normal 97-105 [facility] Comment on above: Order Comment: Speci men Type: BLOOD SPECIMENOrdering Facility: [facility] Address: [address] [place] [address] Performed By: #### 2 4321-2 ####[facility] LABORATORYCLIA [id number] [address] [place] CO2 [Moles/Vol] 26 mmol/L Normal 22-30 [facility] Comment on above: Order Comment: Speci [facility] Type: BLOOD SPECIMENOrdering Facility: [facility] Address: [address] [place] [address] Performed By: #### 2 4321-2 ####[facility] LABORATORYCLIA [id number] [address] OF [facility] Creatinine [Mass/Vol] 0.83 mg/dL Normal 0.58-0.96 [facility] Comment on above: Order Comment: Speci men Type: BLOOD SPECIMENOrdering Facility: [facility] Address: [address] [place] [address] Performed By: #### 2 4321-2 ####[facility] LABORATORYCLIA [id number] [address] Creatinine and Glomerular filtration rate.predicted panel (S/P/Bld) 96 mL/min/1.73m??? Normal >=60 [facility] Comment on above: Order Comment: Speci men Type: BLOOD SPECIMENOrdering Facility: [facility] Address: [address] [place] [address] Result Comment: Irma mated Glomerular Filtration Rate [...] accurately reflect actual GFR. Performed By: #### 2 4321-2 ####[facility] LABORATORYCLIA [id number] [place] [address] [place] Glucose [Mass/Vol] 99 mg/dL Normal 74-99 [facility] Comment on above: Order Comment: Rey hurt Type: BLOOD SPECIMENOrdering Facility: [facility] Address: [address] [place] [address] Result Comment: The [place] [employer] (ADA) provides guidance for cutoff [...] Standards of Medical Care in Diabetes 2016, [place] [employer]. Diabetes Care. 2016.39(Suppl 1). Performed By: #### 2 4321-2 ####[facility] LABORATORYCLIA [id number] [place] [address] [place] Potassium [Moles/Vol] 4.1 mmol/L Normal 3.7-5.1 [facility] Comment on above: Order Comment: Rey hurt Type: BLOOD SPECIMENOrdering Facility: [facility] Address: [address] [place] [address] Performed By: #### 2 4321-2 ####[facility] LABORATORYCLIA [id number] [place] [address] [place] Sodium [Moles/Vol] 141 mmol/L Normal 136-144 [facility] Comment on above: Order Comment: Joselitoi men Type: BLOOD SPECIMENOrdering Facility: [facility] Address: [address] [place] [address] Performed By: #### 2 4321-2 ####[facility] LABORATORYCLIA [id number] [place] [address] [place] Urea nitrogen [Mass/Vol] 12 mg/dL Normal 7-21 [facility] Comment on above: Order Comment: Speci men Type: BLOOD SPECIMENOrdering Facility: [facility] Address: [address] [place] [address] Performed By: #### 2 4321-2 ####[facility] LABORATORYCLIA [id number] [place] [address] [place] CBC panel Auto (Bld)on 03-31 Erythrocyte distribution width (RBC) [Ratio] 12.7 % Normal 11.5-15.0 [facility] Comment on above: Order Comment: Speci men Type: BLOOD SPECIMENOrdering Facility: [facility] Address: [address] [place] [address] Performed By: #### 5 8410-2 ####[facility] LABORATORYIA [id number] [place] [address] [place] Hematocrit (Bld) [Volume fraction] 45.2 % Normal 36.0-46.0 [facility] Comment on above: Order Comment: Speci men Type: BLOOD SPECIMENOrdering Facility: [facility] Address: [address] [place] [address] Performed By: #### 5 8410-2 ####[facility] LABORATORYIA [id number] [place] [address] [place] Hemoglobin (Bld) [Mass/Vol] 14.7 g/dL Normal 11.5-15.5 [facility] Comment on above: Order Comment: Speci men Type: BLOOD SPECIMENOrdering Facility: [facility] Address: [address] [place] [address] Performed By: #### 5 8410-2 ####[facility] LABORATORYCLIA [id number] [place] [address] [place] MCH (RBC) [Entitic mass] 28.8 pg Normal 26.0-34.0 [facility] Comment on above: Order Comment: Speci men Type: BLOOD SPECIMENOrdering Facility: [facility] Address: [address] [place] [address] Performed By: #### 5 8410-2 ####[facility] LABORATORYIA [id number] [facility] [place] [address] [place] MCHC (RBC) [Mass/Vol] 32.5 g/dL Normal 30.5-36.0 [facility] Comment on above: Order Comment: Speci men Type: BLOOD SPECIMENOrdering Facility: [facility] Address: [address] [place] [address] Performed By: #### 5 8410-2 ####[facility] CENTERIA [id number] [place] [address] [place] MCV (RBC) [Entitic vol] 88.5 fL Normal 80.0-100.0 [facility] Comment on above: Order Comment: Speci men Type: BLOOD SPECIMENOrdering Facility: [facility] Address: [address] [place] [address] Performed By: #### 5 8410-2 ####[facility] [id number] [place] [id number] [place] Nucleated RBC (Bld) [#/Vol] 10*3/uL Normal <0.01 [facility] Comment on above: Order Comment: Speci men Type: BLOOD SPECIMENOrdering Facility: [facility] Address: [address] [place] [address] Performed By: #### 5 8410-2 ####[facility] [id number] [place] [address] [place] Platelet mean volume (Bld) [Entitic vol] 10.7 fL Normal 9.0-12.7 [facility] l Comment on above: Order Comment: Speci men Type: BLOOD SPECIMENOrdering Facility: [facility] Address: [address] [place] [address] Performed By: #### 5 8410-2 ####[facility] [id number] [place] [address] [place] Platelets (Bld) [#/Vol] 337 10*3/uL Normal 150-400 [facility] Comment on above: Order Comment: Speci men Type: BLOOD SPECIMENOrdering Facility: [facility] Address: [address] [place] [address] Performed By: #### 5 8410-2 ####[facility] LABORATORYCLIA [id number] [place] [address] [facility] RBC (Bld) [#/Vol] 5.11 10*6/uL Normal 3.90-5.20 [facility] Comment on above: Order Comment: Speci men Type: BLOOD SPECIMENOrdering Facility: [facility] Address: [address] [place] [address] Performed By: #### 5 8410-2 ####[facility] LABORATORYCLIA [id number] [place] [address] [facility] WBC (Bld) [#/Vol] 6.94 10*3/uL Normal 3.70-11.00 [facility] Comment on above: Order Comment: Speci men Type: BLOOD SPECIMENOrdering Facility: [facility] Address: [address] [place] [address] Performed By: #### 5 8410-2 ####[facility] LABORATORYCLIA [id number] [place] [address] [facility] ED NOTEon 03-31-2023 ED NOTE HNO ID: [id number] Author: Yuridia Powell RN Service: ? Author Type: Registered Nurse Type: ED Notes Filed: 03/31/2023 10:39 PM Note Text: Discharge instructions, prescription information and follow-up care/appointments reviewed with patient. Patient and caregiver deny further questions or needs at this time. Discharge vitals taken. IV d/c'ed. Patient departed ED in stable condition with caregiver. [facility] ED NOTE HNO ID: [id number] Author: Yovany Ferrer RN Service: ? Author Type: Registered Nurse Type: ED Notes Filed: 03/31/2023 9:29 PM Note Text: Report given to Daniel BEAUCHAMP [facility] ED NOTE HNO ID: [id number] Author: Rebecca Brenner RN Service: Emergency Medicine Author Type: Registered Nurse Type: ED Notes Filed: 03/31/2023 7:39 PM Note Text: MRI screening form faxed to MRI at this time. Normal [facility] ED NOTE HNO ID: [id number] Author: Jacoby Reese RN Service: Nursing Author Type: Registered Nurse Type: ED Notes Filed: 03/31/2023 4:19 PM Note Text: Pt states groin pain, and inability to fully empty her bladder . Pt states she feels like she is losing control of her bladder. Pt states she is at risk for cuada equina. Pt states cold feet as well as some dizziness. Normal [facility] ED PROV NOTEon 03-31-2023 ED PROV NOTE HNO ID: [id number] Author: Damien Landon MD Service: Emergency Medicine [...] any additional complaints. History provided by: Patient japanese interpreter used: No PAST MEDICAL HISTORY Diagnosis Date [...] wheezing, rhonc (more content not included)... Normal [facility] MRI LUMBAR SPINE WO IVCONon 03-31-2023 MRI LUMBAR SPINE WO IVCON * * *Final Report* * * DATE OF EXAM: Mar 31 2023 9:52PM [facility] 0303 - MRI LUMBAR SPINE WO [...] and assume there are 5 lumbar-type vertebrae. Wash Tank Tender: AIDEN Transcribe Date/Time: Mar 31 2023 10:02P Dictated by : KAREL ROSARIO MD This examination was interpreted and the report reviewed and electronically signed by: KAREL ROSARIO MD on Mar 31 2023 10:07PM EST [id number] Normal [facility] Urinalysis complete panel (U )on 03-31-2023 Bacteria LM.HPF (Urine sed) [#/Area] Moderate Abnormal None Seen [facility] Comment on above: Order Comment: Speci men Type: URINE SPECIMENOrdering Facility: [facility] Address: [address] [place] [address] Performed By: #### 2 4356-8 ####[facility]ENTER[facility] [id number] [place] [address] [place] Bilirubin Ql (U) Negative Normal Negative [facility] Comment on above: Order Comment: Speci men Type: URINE SPECIMENOrdering Facility: [facility] Address: [address] [place] [address] Performed By: #### 2 4356-8 ####[facility] [id number] [place] [address] [place] Clarity (Unsp spec) Clear Normal Clear [facility] Comment on above: Order Comment: Speci men Type: URINE SPECIMENOrdering Facility: [facility] Address: [address] [place] [address] Performed By: #### 2 4356-8 ####[facility] [id number] [place] [address] [place] Color (U) Light Yellow Normal yellow [facility] l Comment on above: Order Comment: Speci men Type: URINE SPECIMENOrdering Facility: [facility] Address: [address] [place] [address] Performed By: #### 2 4356-8 ####[facility] [id number] [place] [address] [place] Epithelial cells LM.HPF (Urine sed) [#/Area] Few Normal [facility] Comment on above: Order Comment: Speci men Type: URINE SPECIMENOrdering Facility: [facility] Address: [address] [place] [address] Performed By: #### 2 4356-8 ####[facility]ENTERIA [id number] [place] [address] [place] Glucose Test strip (U) [Mass/Vol] Negative Normal Trace, Negative [facility] Comment on above: Order Comment: Speci men Type: URINE SPECIMENOrdering Facility: [facility] Address: [address] [place] [address] Performed By: #### 2 4356-8 ####[facility] [id number] [place] [address] [place] Hemoglobin Ql (U) 1+ Abnormal Negative, Trace [facility] Comment on above: Order Comment: Speci men Type: URINE SPECIMENOrdering Facility: [facility] Address: [address] [place] [address] Performed By: #### 2 4356-8 ####[facility] [id number] [place] [id number] [place] Ketones Ql (U) Negative Normal Negative, Trace [facility] Comment on above: Order Comment: Speci men Type: URINE SPECIMENOrdering Facility: [facility] Address: [address] [place] [address] Performed By: #### 2 4356-8 ####[facility] [id number] [place] [address] [place] Leukocyte esterase Test strip Ql (U) 250 Charissa/uL Abnormal Negative, 25 Charissa/uL [facility] Comment on above: Order Comment: Speci men Type: URINE SPECIMENOrdering Facility: [facility] Address: [address] [place] [address] Performed By: #### 2 4356-8 ####[facility] [id number] [place] [address] [place] Nitrite Ql (U) Negative Normal Negative [facility] Comment on above: Order Comment: Speci men Type: URINE SPECIMENOrdering Facility: [facility] SYSTEM Address: [address] [place] [address] Performed By: #### 2 4356-8 ####[facility] [id number] [place] [address] [place] pH (U) 6.0 [pH] Normal 5.0-8.0 [facility] Comment on above: Order Comment: Speci men Type: URINE SPECIMENOrdering Facility: [facility] Address: [address] [place] [address] Performed By: #### 2 4356-8 ####[facility] [id number] [place] [address] [place] Protein (U) [Mass/Vol] Negative Normal Trace , Negative [facility] Comment on above: Order Comment: Speci men Type: URINE SPECIMENOrdering Facility: [facility] Address: [address] [place] [address] Performed By: #### 2 4356-8 ####[facility] [id number] [place] [id number] [place] RBC LM.HPF (Urine sed) [#/Area] 3-5 /HPF Abnormal 0-3 /HPF [facility] Comment on above: Order Comment: Speci men Type: URINE SPECIMENOrdering Facility: [facility] Address: [address] [place] [address] Performed By: #### 2 4356-8 ####[facility] [id number] [place] [id number] [place] Specific gravity (U) [Rel density] 1.023 Normal 1.005-1.030 [facility] Comment on above: Order Comment: Speci men Type: URINE SPECIMENOrdering Facility: [facility] Address: [address] [place] [address] Performed By: #### 2 4356-8 ####[facility] [id number] [place] [address] [place] Urobilinogen Ql (U) Normal Normal Negative [facility] Comment on above: Order Comment: Speci men Type: URINE SPECIMENOrdering Facility: [facility] Address: [address] [place], [place] [address], [place] [address] Performed By: #### 2 4356-8 ####[facility] LABORATORYCLIA [id number] [place] [address] [facility] WBC LM.HPF (Urine sed) [#/Area] 6-10 /HPF Abnormal 0-5 /HPF [facility] Comment on above: Order Comment: Speci men Type: URINE SPECIMENOrdering Facility: [facility] Address: [address] [place] [address] Performed By: #### 2 4356-8 ####[facility] LABORATORYCLIA [id number] [place] [address] [place] Cult,Urineon 03-25-2023 Cult,Urine Specimen Description .CLEAN CATCH URINE Culture NO SIGNIFICANT GROWTH Report Status FINAL 03/25/2023 Normal [facility] Comment on above: Performed By: #### V AGP #### [address] [address] [employer] Supervisor: Ramin Fenton MD [facility] [address] [place] [address] [employer] Supervisor: rPiscila Alvarenga MD Urinalysis w/ Microon 2022 Bacteria 3+ Abnormal NONE [facility] Comment on above: Performed By: #### U AMIC #### [facility] [address] [place] [address] [employer] Supervisor: Priscila Alvarenga MD Bilirubin, SemiQt,Ur Negative Normal NEG [facility] Comment on above: Performed By: #### U AMIC #### [facility] [address] [place] [address] [employer] Supervisor: Priscila Alvarenga MD Blood, Urine TRACE Abnormal NEG [facility] Comment on above: Performed By: #### U AMIC #### [facility] [address] [place] [address] [employer] Supervisor: Priscila Alvarenga MD Clarity (U) Clear Normal CLEAR [facility] Comment on above: Performed By: #### U AMIC #### [facility] [address] [place], [place] [address] [employer] Supervisor: Priscila lAvarenga MD Color (U) Yellow Normal YEL [facility] Comment on above: Performed By: #### U AMIC #### [facility] [address] [place], [place] [address] [employer] Supervisor: Priscila Alvarenga MD Epithelial cells LM Ql (Urine sed) 10 TO 20 Normal 0-25 [facility] Comment on above: Performed By: #### U AMIC #### [address] [place], [place] [address] [employer] Supervisor: Priscila Alvarenga MD Glucose Ql (U) Negative Normal NEG [facility] Comment on above: Performed By: #### U AMIC #### [facility] [address] [place] [address] [place], [place] [id number] [employer] Supervisor: Priscila Alvarenga MD Ketones Ql (U) Negative Normal NEG [facility] Comment on above: Performed By: #### U AMIC #### [facility] [address] [place] [address] [place], [place] [id number] [employer] Supervisor: Priscila Alvarenga MD Leukocyte esterase Test strip Ql (U) MODERATE Abnormal NEG [facility] Comment on above: Performed By: #### U AMIC #### [facility] [address] [place] [address] [place], [place] [address] [employer] Supervisor: Priscila Alvarenga MD Nitrite,Ur Negative Normal NEG [facility] Comment on above: Performed By: #### U AMIC #### [facility] [address] [place] [address] [place] [address] [employer] Supervisor: Priscila Alvarenga MD PH,Ur 6.0 Normal 5.0-9.0 [facility] Comment on above: Performed By: #### U AMIC #### [facility] [address] [place], [place] [address] [employer] Supervisor: Priscila Alvarenga MD Protein Ql (U) Negative Normal NEG [facility] Comment on above: Performed By: #### U AMIC #### [facility] [address] [place] [address] [place], [place] [address] [employer] Supervisor: Priscila Alvarenga MD Spec. [place],Ur 1.015 Normal 1.010-1.020 [facility] Comment on above: Performed By: #### U AMIC #### [facility] [address] [place] [address] [place], [place] 89[address] [employer] Supervisor: Priscila Alvarenga MD Urine RBC's 2 TO 5 Normal 0-2 [facility] Comment on above: Performed By: #### U AMIC #### [facility] [address] [place] [address] [place], [place] [address] [employer] Supervisor: Priscila Alvarenga MD Urine WBC's 10 TO 20 Normal 0-5 [facility] Comment on above: Performed By: #### U AMIC #### [address] [place], [place] [address] [employer] Supervisor: Priscila Alvarenga MD Urobilinogen,Ur Normal Normal 0.0-1.0 [facility] Comment on above: Performed By: #### U AMIC #### [facility] [address] [place] [address] Dr[place], [place] [address] [employer] Supervisor: Priscila Alvarenga MD No Panel Informationon 01-25 [facility] EMG(NEURO/NI)on 01-10-2023 [facility] MR BRAIN WITH AND WITHOUT CO [...] infarct, mass effect or evidence of hemorrhage. DMClinton/max Workstation ID: [id number] Dictated by: PRISCILA BASS on MonDec 23, 2022 8:59:55 AM EDT Transcribed by: JUAN CUBA on MonDec 23, 2022 9:10:59 AM EDT Finalized by: PRISCILA BASS on MonDec 23, 2022 4:34:22 PM EDT [facility] Comment on above: Order Comment: PT/FA X, [place] [place] Injury/Trauma or Illness?:Illness/Other How long have you had these symptoms (acute/chronic)?:Chronic Reason for exam?:right eye peripheral vision loss, occular migraines, weakness, sx since 2020 Type of Exam?:Ongoing Additional signs and symptoms?:n CK CREATINE KINASEon 023 CK [Catalytic activity/Vol] 41 U/L Low 42 - 196 U/L [facility] FOLATE SERUMon 12-21-2022 Folate [Mass/Vol] >4.7 ng/mL [facility] HOMOCYSTEINEon 12-21-2022 Homocysteine [Moles/Vol] 6.3 umol/L <15.1 umol/L [facility] VITAMIN B12 BLOODon 12-22-19 23 Cobalamin (Vitamin B12) [Mass/Vol] 410 pg/mL 232 - 1,245 pg/mL [facility] IGA BLDon 12-15-2022 IgA [Mass/Vol] 254 mg/dL 70 - 400 mg/dL [facility] VITAMIN B12 BLOODon 12-16-19 23 Cobalamin (Vitamin B12) [Mass/Vol] 435 pg/mL 232 - 1,245 pg/mL [facility] EVENT MONITORon 11-21-20[address] [address] EVENT MONITOR PATIENT NAME: BETHANIE DINERO : 1990 MED REC NO: [id number] ROOM: ACCOUNT NO: [id number] ADMIT DATE: 11/10/2022 PROVIDER: Krsitina Jacobs MD CARDIOVASCULAR DIAGNOSTIC DEPARTMENT DATE OF [...] Overall fairly unremarkable study. KRISTINA JACOBS MD [facility] Doc#: Unknown CC: Kavita Gama APRN-NIK Normal [facility] C-Reactive Proteinon 023 CRP High sensitivity method [Mass/Vol] mg/L 0.0 - 5.0 mg/L [facility] Rheumatoid Factoron 11-15-19 23 Rheumatoid factor Nephelometry Qn (S) <10 NINF [facility] Sedimentation Rateon 023 ESR (Bld) [Velocity] 10 mm/h [facility] Echo 2D w doppler w color co mpleteon 11-10-[address] [facility] Transthoracic Echocardiography Report (TTE) Patient Name BAR BENNETT Date of Study 11/10/2022 G Date of 1990 Gender Female Age 32 year(s) Race Room Number Height: 67 inch, 170.18 cm Corporate ID [id number] Weight: 182 pounds, 82.6 kg # Patient Acct [id number] BSA: 1.94 m^2 BMI: 28.51 # kg/m^2 MR # [id number] [employer],Dena Interpreting Physician Kristina Jacbos Fellow Referring Nurse Practitioner Interpreting Referring Physician Kristina Jacobs Type of Study TTE procedure:2D Echocardiogram, M-Mode, Doppler, Color Doppler. Procedure Date Date: 11/10/2022 Start: 02:02 PM Study Location: [facility] Indications:Palpitation s, Chest pain, Dyspnea/SOB, Lightheadedness, Dizziness [...] Calculations: LVIDd:4.63 cm(3.7 - 5.6 cm) Diastolic Volume:72.35044 ml LVIDs:3.07 cm(2.2 - 4.0 cm) Systolic [...] Wall E' velocity:0.17 m/s Lateral Wall E/E':4.97 [facility] Kristina Jacobs MD - 11/10/2022 [facility] Transthoracic Echocardiography Report (TTE) Patient Name BAR BENNETT Date of Study 11/10/2022 G Date of 1990 Gender Female Age 32 year(s) Race Room Number Height: 67 inch, 170.18 cm Corporate ID [id number] Weight: 182 pounds, 82.6 kg # Patient Acct [id number] BSA: 1.94 m^2 BMI: 28.51 # kg/m^2 MR # [id number] [employer],Dena Interpreting Physician Kristina Jacobs Fellow Referring Nurse Practitioner Interpreting Referring Physician Kristina Jacobs Type of Study TTE procedure:2D Echocardiogram, M-Mode, Doppler, Color Doppler. Procedure Date Date: 11/10/2022 Start: 02:02 PM Study Location: [facility] Indications:Palpitation s, Chest pain, Dyspnea/SOB, Lightheadedness, Dizziness [...] Calculations: LVIDd:4.63 cm(3.7 - 5.6 cm) Diastolic Volume:72.63569 ml LVIDs:3.07 cm(2.2 - 4.0 cm) Systolic [...] Wall E' velocity:0.17 m/s Lateral Wall E/E':4.97 [employer] Work Phone: [employer] Work Phone: [facility] 10-17-2022 Anion gap [Moles/Vol] 11 mmol/L 9 - 17 mmol/L [employer] Calcium [Mass/Vol] 10.0 mg/dL 8.6 - 10. 4 mg/dL [employer] Chloride [Moles/Vol] 102 mmol/L 98 - 10 7 mmol/L [facility] CO2 [Moles/Vol] 26 mmol/L 20 - 31 mmol/L [facility] Creatinine [Mass/Vol] 0.71 mg/dL 0.50 - 0.90 mg/dL [facility] GFR/1.73 sq M.predicted MDRD (S/P/Bld) [Vol rate/Area] - PINF [facility] Comment on above: These results are not [...] 106 mg/dL High 70 - 99 mg/dL [facility] Interpretation and review of laboratory results Abnormal [facility] Potassium [Moles/Vol] 3.8 mmol/L 3.7 - 5.3 mmol/L [facility] Sodium [Moles/Vol] 139 mmol/L 135 - 144 mmol/L [facility] Urea nitrogen [Mass/Vol] 9 mg/dL 6 - 20 mg/dL [facility] Urea nitrogen/Creatinine (Bld) [Mass ratio] 13 9 - 20 [facility] CBC with Auto Differentialon 10-17-2022 Absolute Eos # 0.06 [place] [facility] Absolute Immature Granulocyte [facility] Absolute Lymph # 1.62 [facility] Absolute [place] # 0.36 [facility] Basophils (Bld) [#/Vol] 0.03 10*3/uL [facility] Basophils/100 WBC (Bld) 0 % 0 - 2 % [facility] Eosinophils/100 WBC (Bld) 1 % 1 - 4 % [facility] Hematocrit (Bld) [Volume fraction] 44.6 % 36.3 - 47.1 % [facility] Hemoglobin (Bld) [Mass/Vol] 14.6 g/dL 11.9 - 15.1 g/dL [facility] Immature granulocytes/100 WBC (Bld) 0 % 0 [facility] Interpretation and review of laboratory results Abnormal [facility] Lymphocytes/100 WBC (Bld) 21 % Low 24 - 43 % [facility] MCH (RBC) [Entitic mass] 28.6 pg 25.2 - 33.5 pg [facility] MCHC (RBC) [Mass/Vol] 32.7 g/dL 28.4 - 34.8 g/dL [facility] MCV (RBC) [Entitic vol] 87.5 fL 82.6 - 102.9 fL [facility] Monocytes/100 WBC (Bld) 5 % 3 - 12 % [facility] NRBC Automated 0.0 0.0 per 100 WBC [facility] Platelet distribution width (Bld) [Ratio] 13.0 % 11.8 - 14.4 % [facility] Platelet mean volume (Bld) [Entitic vol] 10.5 fL 8.1 - 13.5 fL [facility] Platelets (Bld) [#/Vol] 348 10*3/uL [facility] RBC (Bld) [#/Vol] 5.10 10*6/uL 3.95 - 5.1 1 m/uL [facility] Segmented neutrophils/100 WBC (Bld) 73 % High 36 - 65 % [facility] Segs Absolute 5.61 [facility] WBC (Bld) [#/Vol] 7.7 10*3/uL [facility] Magnesiumon 10-17-2022 Magnesium [Mass/Vol] 1.9 mg/dL 1.6 - 2 .6 mg/dL [facility] No Panel Informationon 10-17 [facility] Troponinon 10-17-2022 Troponin I.cardiac DL <= 0.01 ng/mL [Mass/Vol] ng/L 0 - 14 ng/L [facility] Comment on above: High Sensitivity Tro ponin values cannot be compared with other Troponin methodologies. [facility] COPPER,RANDOM OR 24 HR URINE on 10-15-2022 URINE VOLUME 2049 [facility] Comment on above: Performed By: #### L COPU #### Testing performed at [facility] XR SCOLIOSIS PA STAND/LAT 2V on 10-14-2022 [facility] COPPER,RANDOM OR 24 HR URINE on 10-07-2022 COPPER CREAT RATIO 9 [facility] Comment on above: Result Comment: Refe rence range: 0 to 49 Unit: ug/g creat Performed By: #### L COPU #### Testing performed at [facility] CREATININE,U 0.45 [facility] Comment on above: Result Comment: Dete ction Limit = 0.10 Reference range: 0.30 to 3.00 Unit: g/L Performed By: #### L COPU #### Testing performed at [facility] COPPER,URINE 4 [facility] Comment on above: Result Comment: Refe rence range: Not Estab. Unit: ug/L (NOTE) This test was developed and its performance characteristics determined by [facility]. It has not been cleared or approved by the Food and Drug Administration. Detection Limit = 1 Performed By: #### L COPU #### Testing performed at [facility] COPPER,URINE 24 HR 10 [facility] Comment on above: Result Comment: Refe rence range: 3 to 35 Unit: ug/24 hr PERFORMED AT [facility] Performed By: #### L COPU #### Testing performed at [facility] COPPER,RANDOM OR 24 HR URINE on 10-05-2022 URINE UNITS MLS [facility] Comment on above: Performed By: #### L COPU #### Testing performed at [facility] FAX REQUESTon 10-05-2022 FAX TO [id number] [facility] Comment on above: Performed By: #### L COPU #### Testing performed at [facility] PERIODon 10-05-2022 PERIOD 24 HRS [facility] Comment on above: Performed By: #### L COPU #### Testing performed at [facility] VOLUME 2520 MLS [facility] Comment on above: Performed By: #### L COPU #### Testing performed at [facility] FAX REQUESTon 10-03-2022 FAX TO Normal [facility] SENDOUT TESTon 10-03-2022 SENDOUT TEST PROSTAGLANDIN D2(106037) AND TRYPTASE([id number]) Normal [facility] MR Lumbar spine WO and W con trast Naveen 09-30-2022 IMPRESSION: Mild levoconvex scoliosis and minor malalignment [...] and assume there are 5 lumbar-type vertebrae. Transcribe Date/Time: Sep 30 2022 1:07P Dictated by: RENETTA CHILD MD This examination was interpreted and the report reviewed and electronically signed by: RENETTA CHILD MD on Sep 30 2022 1:47PM EST Thank you for allowing us to participate in the care of your patient. Should there be any questions regarding this interpretation, please call [phone]. If you are unable to reach us at the number above, please feel free to contact [facility] at [phone]. DIVISION OF RADIOLOGY * * *Final Report* * * DATE OF EXAM: Sep 29 2022 3:00PM [facility] 0304 - MRI LUMBAR SPINE WO/W IVCON / PROCEDURE REASON: Paresthesia of saddle area, Fecal Smearing, Concern for Myelopathy * * * * Physician Interpretation * * * * RESULT: EXAMINATION: MRI LUMBAR SPINE WO/W IVCON CLINICAL HISTORY: Paresthesia of saddle area, Fecal Smearing, Concern for Myelopathy SEVERE CONSTIPATION , LEGS GO NUMB X 2 YRS SVM TECHNIQUE: Routine lumbosacral spine MR protocol without and with intravenous gadolinium. MQ: MRLSPWO_3 Contrast: 15 mL Dotarem intravenous COMPARISON: None. RESULT: Counting reference: Lumbosacral junction. For the purposes of this report, L4-5 is considered the level of the iliac crest and assume there are 5 lumbar-type vertebrae. Anatomic variant: None. Localizer images: No additional findings. General: There is mild levoconvex scoliosis centered at L2-3 and there is slight retrolisthesis at L3-4 and L5-S1. There is desiccation and mild height loss of the L5-S1 intervertebral disc. Vertebral body height is adequately maintained. There is a tiny Schmorl's node at superior T12. No evidence of pathologic marrow infiltration. No evidence of prior fracture. Conus: The conus is within normal limits of signal intensity and morphology. Postcontrast imaging: No pathologic enhancement within the spinal canal. Paraspinal soft tissues: Paraspinal soft tissues are within normal limits. Lower thoracic spine: Visualized lower thoracic canal and foramina are patent. L1-L2: Canal and foramina are patent. L2-L3: Canal and foramina are patent. L3-L4: Canal and foramina are patent. L4-L5: There is subtle disc bulging flattening the thecal sac and there is little to mild posterior facet arthropathy. The spinal canal and neural foramen are adequately maintained. L5-S1: There is a minimal central right disc protrusion/herniation with annular tear and there is little to mild posterior facet arthropathy. The spinal canal and neural foramen are adequately maintained. Sacrum and iliac wings: The visualized sacrum and iliac wings are within normal limits. DIVISION OF RADIOLOGY Provider, [facility] - 09/30/2022 * * *Final Report* * * DATE OF EXAM: Sep 29 2022 3:00PM [facility] 0304 - MRI LUMBAR SPINE WO/W IVCON / PROCEDURE REASON: Paresthesia of saddle area, Fecal Smearing, Concern for Myelopathy * * * * Physician Interpretation * * * * RESULT: EXAMINATION: MRI LUMBAR SPINE WO/W IVCON CLINICAL HISTORY: Paresthesia of saddle area, Fecal Smearing, Concern for Myelopathy SEVERE CONSTIPATION , LEGS GO NUMB X 2 YRS SVM TECHNIQUE: Routine lumbosacral spine MR protocol without and with intravenous gadolinium. MQ: MRLSPWO_3 Contrast: 15 mL Dotarem intravenous COMPARISON: None. RESULT: Counting reference: Lumbosacral junction. For the purposes of this report, L4-5 is considered the level of the iliac crest and assume there are 5 lumbar-type vertebrae. Anatomic variant: None. Localizer images: No additional findings. General: There is mild levoconvex scoliosis centered at L2-3 and there is slight retrolisthesis at L3-4 and L5-S1. There is desiccation and mild height loss of the L5-S1 intervertebral disc. Vertebral body height is adequately maintained. There is a tiny Schmorl's node at superior T12. No evidence of pathologic marrow infiltration. No evidence of prior fracture. Conus: The conus is within normal limits of signal intensity and morphology. Postcontrast imaging: No pathologic enhancement within the spinal canal. Paraspinal soft tissues: Paraspinal soft tissues are within normal limits. Lower thoracic spine: Visualized lower thoracic canal and foramina are patent. L1-L2: Canal and foramina are patent. L2-L3: Canal and foramina are patent. L3-L4: Canal and foramina are patent. L4-L5: There is subtle disc bulging flattening the thecal sac and there is little to mild posterior facet arthropathy. The spinal canal and neural foramen are adequately maintained. L5-S1: There is a minimal central right disc protrusion/herniation with annular tear and there is little to mild posterior facet arthropathy. The spinal canal and neural foramen are adequately maintained. Sacrum and iliac wings: The visualized sacrum and iliac wings are within normal limits. IMPRESSION IMPRESSION: Mild levoconvex scoliosis and minor malalignment [...] and assume there are 5 lumbar-type vertebrae. Transcribe Date/Time: Sep 30 2022 1:07P Dictated by: RENETTA CHILD MD This examination was interpreted and the report reviewed and electronically signed by: RENETTA CHILD MD on Sep 30 2022 1:47PM EST Thank you for allowing us to participate in the care of your patient. Should there be any questions regarding this interpretation, please call [phone]. If you are unable to reach us at the number above, please feel free to contact [facility] eRadiology at [phone]. [facility] MR Lumbar spine WO and W con trast IVOrdered By: Ccf Provider on 09-30-2022 [facility] MR Lumbar spine WO and W con trast Naveen 09-29-2022 Radiology Study observation (narrative) [facility] US ABDOMEN COMPLETEon 2022 US ABDOMEN COMPLETE [...] 2. There are no other significant abnormalities. [facility] US Abdomenon 08-15-2022 IMPRESSION: 1. Hepatic steatosis. [...] 2. There are no other significant abnormalities. [facility] Radiology Study observation (narrative) [facility] US AbdomenOrdered By: Cecilia Blair on 08-15-2022 [facility] Work Phone: Pathology studyOrdered By: Riley Ng on 08-01-2022 Citation Lorenzo (Reference lab test) p0kcsNYvJORws9gtBEWnkGX uZzEwMzNcZnRuYmpcdWMxIH swgbTzUNgfm5HxE8DwAaYnX FxhbnNpXGRlZmxhbmcxMDMz IAD1ssCcGNPrHWviYMCiKBy gDp0lsAJrnVpgClGzXQKxg7 jypiQHEPufCBHRNVv4f4rbR QSpCyX9tIGnZJnuM5yasqKr oIVtJ2Uqc4PyPBi7zG06CMT ihF5wyKZyRUtevtSlIyE9RW vkHPLsWyV7EKPcaLYoBYJuV 8zyLAJyCLjdddGczjS5HFSj eEGlUNB1KNCsCHGgS4XlUS6 vOBHuhNJoMAw7x4yezKgnPM FwKUL0e7pdHZzoucNjWI1hm u4zaXg7x3ykxrXwSBOtGMZc jPNWOMFgO4YxdZqeRp7vhVi 7uGxfQxegXTY4Air7YE7quk 87swj1kGdsGNJckugkPlR2V HvwLYHxlrnrYJf0XRxdYYWz aUF4YLWiyDLxJ1WcARLeDI8 rlcy2SIB6WXpgDWNvNgP9ZA WhqBVnEEFbdJteNYfxa720T FR8RzYzGY0tR5Bja1D6lD6u aXRcZGVmdGFiNzIwXGZvcm1 liRBmGYtqt8HsVAT4boH2kR VptWAeLCFeFK43Wahft1PxY oqqMVA4NCEuwqAwu1Hbd9ga ZvMchjWpC3ggT3KtXSYqVZT hJKFtTgPsoaLct8Soe9KsgP RkrVw4d4orQTPlQNBfcQfnt 6awPAR5DNQcT9T3gHIjn9kc ORhyPHPrdSW4tfK9GMBxgDM eR7RovY1jJITfSN6ryct3g4 swYMR0BTckKMZrQfJ0cdB1K TNvxUBjDGGvvJexCXgrk850 IML3JfCpBVCvd7VhO9ImxHo mT12bjAxvX06hELPpmAuswG 1aoXomdJ0nLpDgQiWuSLbsg LpogSPghshxJGqllpC7JPlb fcffRFSnSXtrX2sfUrGgZLB nyWapYUlql1VqSTIaSDZwQe pftuE2VDgoSA22XAoymYXiu 3hnl4UeF0fjfHincET7VD5n AXPaYQMaVUtzd0UrmB5twIN bEJGekxQ9iLCfsS83OLLwub L2HWIcr42lk6AssCyyfqAvM YJsJWiayaWxGVRxz5CjOSZl YBLiCD71tbIcV3ZuxCYcJKF sxwSfJUeceA0nn9m4DGliZy 5uAGono8DqjQQxjYJwuYC6H WKfo2GfZrQtyyWsbFEjhdZi UC4fSTGdjHLaopPmLIV6VUI sGROFKuFvYTZrl5HrVZ6tHY NrhXuvGVIunE5py1KmQIAec 24uIFRoZSBGREEgaGFzIGRl dGVybWluZWQgdGhhdCBzdWN vRUGxEDXkSL3oDJMfroBizL Ijp9KwzIKnqzVhd1KbbsYyT JWcOGV7MxZIaWBoAHT1VYX3 onSynpYpnIEzXOMwx6WqW7h qpydxWGhcbTHdqV7xTMKpFP 2pLCRjg4QfGBUyf1JuTcTfc tGfXCRbJACdMWTnvT69IBK1 eTxssDpapsDzFI5uPPMpxhL qJGSlAVLeuV9yGUbxicCqMF HycqM7c7D4FLyyZUBmfjJgW xxmGSP2slFfCVTxp9TkCSye L1yoC81cvEexjLo3lZT6PRO 5xP8qTMQaRXPkJHCtMJKKfJ apiKPboIVEPDRquwK2q4I6K OlhfTMewqEvZO64MACvFF7i rUKnwRVli8DoLIc4WW0aIYr vPZIfljWny7klNWAwv3bnFE Vosw0kbxnwmPBnmzPcD7Ann kz1sS6cnEVpUSCjxu96ZZG9 ChTfYM9hcXxtVNWyRU0dJNO hV3cdhN6ilta3HiSbh2kmoX YxXHNzdGVjZjIyMDAwXGFuc 2lcZGVmbGFuZzEwMzNcZnRu SeyfzYFnQFIgDoYrm2uky71 6sQVbg6lcHVRxDeI2dZDgSF TbP36oJNABN994CHQlLElyj 7jhg4PlFSHwfDMjh6B6XURB RRhsEIWEHOp1hIdxL35mr9D 4UdxwT7uaVRTvTZIeU1JgPG 9cLPElUym3KZP1SUG7BZBkE BO6SYcsZJUaQQPlCec6ZBI3 IDtccmVkMTQzXGdyZWVuMTQ nRWEtaHPuSXZcA9nzPPKdYJ jtKWIzIQosfUKfLQU5wFlrt 1H3mOTviLLajBkdIyNwDeXv QgXPr9ZiKVd3qXlkV6QaJOX yMnP0fSJqDQDgLKvoCROjIR LbrbM4mQ34XLinpcG9xMJta 1Mqh06aq259mF2fnGNdLLU2 NIDaNCDmdOIzWHCcODP4JWJ hmBXgE7lqTMQxEU8csykaTX tbCRplOTYjlYF7ALGgmMVmA 4MeMKCdLXjvGASscog3ZnCf Bm1gxHSaxUvpPVqvm5rbf0q uhAXiIbp8KPSsSvBkRghdEC nhp2Kvu6oyRZXgxo9yAED8k GLfsXzwd2X1dJGwBKAauRBs xfUsNXLlSuR0TEbhVU0jai1 7YBMzDWV8gk4mgNCyaJvbtp RolFCwTMabW5AjZDJaj954T JAxK7LhLEOrh5R7ffJqWvPz TZLbvTI5atR9TBXxQHh6iOH sxuZ0vtNanKZdU1jviT7iEB FtXR3ffchqd0ebAZcgGGviR YBpbLT7jzW2RMVwrMHnB9Jg aB4vQJVbDBjdHLZwfeu4IuT cUt6jvJGcmPlfHQpvXmcwHP dlXHBnbmNvbnRccGduZGVjX HBsYWluXHBsYWluXGYwXGZz LtWppZjqhWdjeP3aMkBjReQ fJEkkRW6pEMNpZ8vkzJCeNX IlWEKcG8piZaGyvV4waCmkF VxjZjJcZnMxOFxpIFRoZSB0 PCAlgodbLMldP27grW2gBP2 0USautgNaJMFjo2JzSXPeQM KdUChbUTFzoaWbWDyzmT3wf 1q7IUyqCm5qIDEyaftmYJD0 SeSjXC72EgwpqHNtFAGYomC sIENvbHVtYnVzLCBPaGlvID KoLkX3GzLCtCRkt9Mqq1CqN tSakGHmzY1ecZjjmuY2FZPg rMYcAb0kbYBzCktffNWpmgo lVAftreG2XRwdpcgvJDNdVM xcT7ouXnZaRRZtcRgnEGxsv 3NeLNAwFUBnJ6nugyQ0TKtf pYGhQXRjax23vN== [employer] Work Phone: Clinical Information v1evyVNwCBIgmZYePKE wNVx dkzYcLBVclSWnC2QwygsdEZ hlHU2pJA5psEnbiBFbzWElW DWmJqPon1nzo701bDMqk6sy EBKNfwduvIu3lAneH97pg4N 2UsmaU21kiPRjQKF4AVElVM MqqMRcFZYvDXR9AFLkgUCdX 1jrCDNuGU7ctzcsLMjhDQwa RJOtcEA9NSRapRFuH4LaEYF iSNwpVPAtbie4BnJvVg5naF VyeTcyMFxwYXJkXHBsYWluX TDeMiVyF5WbaHVsBXTud3Hc NJbrDLywidRwrMA4VLOxo4M ug3Adl5q6rB76wHRex46hbJ FnaXRpcyBbSzIxLjldXHBhc pWFTBJ8wx4cRILka0xgIKuG MzEuODRdXHBhciBPdGhlciB mw40sxUcdCPOqk68vF0a5BG 1gSW6hcVTwOUQfFJ0cLJHcu vIlc2sziJCfTWPywQYzLpM8 LjRdXHBhclxwYXJ9 [employer] Work Phone: Microscopic description Lorenzo (Endomyocardium) t3azuXXeVIPcqOHVTCQzCCS gRJ5phUguzOe1cPaoDVDkrm W6vGInXMeog8ikMUM7o8glz qRKBgtoLUDjLO1xDCclEZJc GE3eVcCoROIvLoHjOSJojZC gixPyXoUnMEUkeBBabAY5EZ YlVV9qtwgdCRyxSHjyAZNso kG1WBIyyUYiL9OoLCUfHH2c xavjPNY2VRMUEwugNb1ohJK ibCANCntcZjFcZmNoYXJzZX AsGCZmzMpuOXBmGDc7wD8Sr 2hfWdkiK2adxhNbrEVdNg1d eBJCWEujUAHBGQd1gF9CVJS pO7DyHD1Yf9vdTFWopMEkUY K7CRusc1caAZceYIP9LEVzF SVfBLLnXW8CSnGhVQWfILfc AYyoQoM3IHm9PHWPAPSuVUf mPUa7CUh8XCe8PSeuztpkYR m8XOLgRUinjTMjWK6eeEkqW vuujErba6ArqFCmGEVmZWlg aWQgNTEwMDIgXFxkYiBPVlI dXgMvCiB2ZyC4MbViTLg8CM blQ9PYQJNnWPJqVZUzOUJhE xX0VSz4ZCAKVy3qBmv9MZy2 FEy4KFU2QJNuXXUcCMXvIxD fVSGdXRCjUTbxwAZnLO2buP vuYJOmTR9EIPHjRDjfGRUjQ LKkQkVtTR9qZ41hmLzdIY57 NJS5pJ3tZSFWxQ2wSO97ySi kBphkeb1pSNPynQayKtlnvV AtSD3UXKGvvlNhZBqlvLdui P6pYjCfFmEiMVgrjTVjiodv dHJjaFxmczIyXGVwaWNOZXN 2ZC3tFRGAIjpirKRnSJFjiY cjOFxrtG3pIG7DHAIyBPVdP uMaMqRqXVt7UAFfpW4oYt7i sWBuwR0rfXMiAWbiHBC2kEG zHVCjPQEeKJIoLA85Y9Cttc VfPYPsimWnRvM3g5LxecEbX iBhcmUgMyBmcmFnbWVudHMg r7AbkEVmTOGaxsdee06faJW 4hCKcpWNfspTyD8ldNrIkwk 7sJQHeLsZ8qtHqWxTsR82sd H4rM8RuEGOri3YcHVnrPC2g rX2kHyIrVBiuVLVaMXRdbAS xZPhgJRR6Ax7afTTnIJUnna LqnhSvsBPzsiZeeS0mtsDGE Z8olRXsQP1JHMMvLdUzYTXl O9xuMCFcXC7TLUVIPC4RZOV jeYOKLCV1RJ1vCYpoJQPxP7 OoV5AmpfW2HROgfnQDXpxnW fnydQvba8BvsUOyHOMaBGlo aWQgNTEwMDIgXFxkYiBPVlI bFoLzVgZ3TgN1QfIwPEr5GY coV9YMQCFoTSVpEKEgMWG9V pU9HZn5DHWKUy2cAyh7ABd3 TPA4NWA2GZOtNCXiOSBtDuR zTMCxXQKgXEulyIJpPG6pdU odFAXoHEKuERL2BHInjVAXj 2IxMDUgDQpcZjJcZnMyMlxm GMjlbhZuQGGnQHY5j01mR7g tJUR0XUBhgxQLGZbscXXoVZ 7OAGPkytVjLDvdlTyejM1gz RWtG6skQuCxVbGzHZdvSjld fnGlVCWdzIEKPHM3IW7cOPU NClxsdHJwYXJcbGluMFxyaW 3dTJNmQkQeGDQaO7xgSjVwU P1XZJKhGTNsXxKwSuToLCk2 XQRqlF8oAf5dhGTmqS5oqSG pQXwkZFD5tWSpDLMbZSEbYG LbZJ24Q3GwdeVaKZLnmgKuE eZ8v94qJ9irGSFyVYM3DNAm YNhuUB68vdIuOfH1QZ6ahVl nqqLos3V0DCIyf2W4FWLaKF 0yiZ1jYTKlr53qTU3yNKCfZ DAuMyBjbSBpbiBncmVhdGVz yHUcxD7dmnZvu62oNQIRfWI rg9PxP1yiDV5bpPOrn7MhsO g9xNTtFUMutDawSYr3LWisC RDhh3HrPSRcEjhoENWqEDmh t7WqTIKxtYKCe2HgCYCtMbO tLAUmS5fmMVYvSD6YBJFDUU 6JGELodSEUENG3BU7vUCehV TNwP8AyP2ThvnN0OEVbkrVH GnkrStkaoSuts0PapCCxTJL nIFxcaWQgNTEwMDIgXFxkYi OBLqUiBqCfYqV2EkE4KqEjD Xf7ERipY7LNFHChOAJmQJUf LPT1PbY8SHn0QILYAu9aXyu 8DOm5PEs6ZaL9OCWkLTQbYT QgMiBcXHNzIDMgXFxmbCBcX F0zlLusIBXvAYAtEQS0SBWk gZCLb7UkLAFjOEjdUbKcEnH yMlxmMVxmczIwIEMuIEVzb3 YpCLc5vhvsCfbzF3EzkdQyN 8Vws95qla7pQCSdgaXyoLTn OlxwYXIgDQpccGFyZCANClx wbGFpblxsdHJjaFxmMVxmcz VyYLEjRSPgAoYzOEGhA74bb 9EWs0SwRE0SYUn3rqRwgftp qU9eDDMbyyPyd0CmAJrbdXy jWHNiMzAgDQpcZjFcZnMyMC DGZWBupXGyPBMvcpXuw2QjL WxpbiBsYWJlbGVkIHdpdGgg dGhlIHBhdGllbnQncyBuYW1 cITWzMINkHLLtqCxoS7ExCr BhcmUgMiBmcmFnbWVudHMgb 8SrtSRlUEBjqsjgc94eoTJ4 wRQpzKTpxfQtB7vzVeNcqy5 cDAIcXXW3iyWiEpSeH95qqX 7kS3WrFBDsr8XjDRciNH9tj S6yEzNtCMywQWRjDNBkaSGl WBynGKX4Zm8ybSYfVJPywrO qlqLlgAEvwdHujG6fgbZGJV 3iyEXwMR1VBKDhEZwrgVxyB LGrBSyhBTFtULPtyKHLk6Mk MCANCihBQikNClxlcGljTmV usRKbBsX1SPFsrTGlUWA4MK 8tsAqkUIAcZ5MkO9DlmyW6P ACignIYQehvWIOdAU0LLLQx XGZzMjIgDQp9 [employer] Work Phone: Pathology report final diagnosis Narrative v7vbpDHpZKFxhSHwRCVbRYi eikFwQHHicRRcF2YwsgzjQB iqJS7uFM8yfCmnlUGrbYFlX NBvGrQfs8nei923mQWev7pv VIUBdhaqpPc0cHulE89xu6A 7ItueY3msZAQgKKusXKYuRA qpsBQfQJe0ODHnbXPhcqPvN kKmJFXwjBVhuZR6ZWCvGT2e ygjgHVomXMvbNUIyjgK3HPD arEMyA6OyFSZtCJ8ndbsoKC R2CYajBNEkDEX8ViLtHFXfi 0Hicsc9JdAuzOs5b1uhXPWx WIMjvJizk8kdPFB2AALtdEJ bJ1olqQ0eSEYsLB3ikdqkq4 swGGplGRmjYAEpzSQ3ruD4T TNrpZAtP1AiwV8pNDOsXORq siUryKxpUcZ5DAwheDQayra lMRNyOvYtX6LiFKWxPCTCnP 6zYJ10fZxyDuhlgZU5BiuoR XIgLSAgRHVvZGVuYWwgbXVj m6EwODsmfAsogp2dn2msgwc jcGNsigYmeJM7zV5dn7iiYn UbvZEmL4IvMGVrbvGzSHKYf wRqqCY8p3jbW8clWIR8aDFq gjJqJF7zTMDouLarLoNneBS 8MM4lbJTqPTEbnaOLAnDoM4 PmwUJvsOniPnnvgYJ3DoraH YTmQRTuI9y0slLmOkWpetLj YO84qbWsRC58U55mLKE7wMQ dYP3wgseeEOgbL1lea20qVm HgudCuII4sTAIah75lTUCow uqmEWapnhZpLA6kfZT0KQyg kYThf7N5JPnfJGSunyNERoJ weWxvcmkgaXMgcGVuZGluZy BabtHde3mvaBIeLCEeFBZvf nRlZCBhcyBhbiBhZGRlbmR1 gY5meVEsGLToZrGmRybjRML wYq5zRHmIDAo1pmR7yP1iKN YvjN7it2i9PVXcwjKkJVEAU AJ5ujsbQLBdiuNdXZUmqSCx g4Yvx8k5yDFzryOrwCakuHR qZ4QvqWCbZUAue6gzR4hbAJ FyZT4pJF0jyWLlZG9jXM8yE OmioGRisPeyZHizqEW6EWDs YXNpYSBvciBkeXNwbGFzaWE wwUTehzZoOzxnOX3icWHuIX IwXGZzMjRccGFyfQ== [employer] Work Phone: [employer] Work Phone: FABIANADon 07-29-2022 Esophagogastroduodenos copy [facility] GI Patient Name: Bethanie Dinero Procedure Date: [...] verified by the physician, the nurse, the equine manager and the microfilm technician in the procedure room. Mental Status [...] and oxygen saturations were monitored continuously. The [id number] Endoscope was introduced through the mouth, and [...] celiac disease. Procedure Code(s): --- Professional --- 56585, Esophagogastroduodenosc opy, flexible, transoral; with biopsy, single or multiple Diagnosis Code(s): --- Professional --- K21.9, Gastro-esophageal reflux disease without esophagitis K31.84, Gastroparesis CPT copyright 2020 [employer]. All rights reserved. The codes documented in this report are preliminary and upon clinical specialty rep review may be revised to meet current compliance requirements. Dl PONCE MD 07/29/2022 12:53:33 PM This report has been signed electronically. Number of Addenda: 0 Note Initiated On: 07/29/2022 12:27 PM Total Procedure Duration Time 0 hours 5 minutes 47 seconds [address] [place] [address] IMPRESSION: - Normal esophagus. Biopsied. - Normal [...] with the patient and their family. Normal [facility] EGD Anesthesia - General; [facility] ENDOSCOPYon 07-29-2022 - Normal esophagus. Biopsied. - [...] discussed with the patient and their family. [facility] ity GI Patient Name: Bethanie Dinero Procedure [...] verified by the physician, the nurse, the equine manager and the microfilm technician in the procedure room. Mental Status [...] and oxygen saturations were monitored continuously. The [id number] Endoscope was introduced through the mouth, and [...] celiac disease. Procedure Code(s): --- Professional --- 05809, Esophagogastroduodenosc opy, flexible, transoral; with biopsy, single or multiple Diagnosis Code(s): --- Professional --- K21.9, Gastro-esophageal reflux disease without esophagitis K31.84, Gastroparesis CPT copyright 2020 [employer]. All rights reserved. The codes documented in this report are preliminary and upon clinical specialty rep review may be revised to meet current compliance requirements. Dl PONCE MD 07/29/2022 12:53:33 PM This report has been signed electronically. Number of Addenda: 0 Note Initiated On: 07/29/2022 12:27 PM Total Procedure Duration Time 0 hours 5 minutes 47 seconds [address] [place], [place] [address] [facility] Dl Ponce MD - 07/29/2022 [facility] GI Patient Name: Bethanie Dinero Procedure Date: [...] verified by the physician, the nurse, the equine manager and the microfilm technician in the procedure room. Mental Status [...] and oxygen saturations were monitored continuously. The [id number] Endoscope was introduced through the mouth, and [...] celiac disease. Procedure Code(s): --- Professional --- 78674, Esophagogastroduodenosc opy, flexible, transoral; with biopsy, single or multiple Diagnosis Code(s): --- Professional --- K21.9, Gastro-esophageal reflux disease without esophagitis K31.84, Gastroparesis CPT copyright 2020 [employer]. All rights reserved. The codes documented in this report are preliminary and upon clinical specialty rep review may be revised to meet current compliance requirements. Dl PONCE MD 07/29/2022 12:53:33 PM This report has been signed electronically. Number of Addenda: 0 Note Initiated On: 07/29/2022 12:27 PM Total Procedure Duration Time 0 hours 5 minutes 47 seconds [address] [place] [address] IMPRESSION: - Normal esophagus. Biopsied. - Normal [...] discussed with the patient and their family. [facility] Radiology Study observation (narrative) [employer] HCG ( test) Ql (U)o n 07-29-2022 Beta HCG ( test) Ql (U) Negative Negative [employer] Beta HCG ( test) Ql (U) Yes Yes [facility] Pathology studyon 07-29-2022 Pathology study Immunostain for [...] interpretation of this case was performed at [facility]. These tests have not been [...] was performed at [facility], [address] [place] [address]. Microscopic examination was performed. Normal [facility] Comment on above: Performed By: #### 1 1526-1 #### [facility] [address] [place] [address] [facility] [address] [place] [address] Vaginitis DNA Probeon 2022 Jose David Species, DNA Probe Negative NEGATIVE [facility] Comment on above: for Jose David sp. Method of testing is a DNA probe intended for detection and identification of Jose David species, Gardnerella vaginalis, and Trichomonas vaginalis nucleic acid in vaginal fluid specimens from patients with symptoms of vaginitis/vaginosis. Gardnerella Vaginalis, DNA Probe Positive Abnormal NEGATIVE [facility] Comment on above: for Gardnerella vagi nalis Interpretation and review of laboratory results Abnormal [facility] Source .VAGINAL SWAB [facility] Trichomonas Vaginalis DNA Negative NEGATIVE [facility] Comment on above: for Trichomonas Vagi nalis [facility] EPIL EEG LONGon 06-30-2022 [facility] CBCon 06-12-2022 ABSOLUTE BAS 0.1 10*3/uL Normal 0.0-0.[address] [facility] Comment on above: Result Comment: Test ing performed at [place] [address] Performed By: #### A CBC, LIPA2, CMPF #### [place] [address] ABSOLUTE EOS 0.1 10*3/uL Normal 0.0-0.[address] [facility] Comment on above: Performed By: #### A CBC, LIPA2, CMPF #### [place] [address] ABSOLUTE NEUTROPHIL COUNT 5.0 10*3/uL Normal 1.4-6.5 [facility] Comment on above: Performed By: #### A CBC, LIPA2, CMPF #### [place] [address] Basophils/100 WBC (Bld) 0.8 % Normal 0.0-2.0 [facility] Comment on above: Performed By: #### A CBC, LIPA2, CMPF #### [place] [address] DTYPE AUTO DIFF Normal [facility] Comment on above: Performed By: #### A CBC, LIPA2, CMPF #### [place] [address] Eosinophils/100 WBC (Bld) 1.7 % Normal 0.0-11.0 [facility] Comment on above: Performed By: #### A CBC, LIPA2, CMPF #### Testing performed at [address] [address] Lymphocytes (Bld) [#/Vol] 2.3 10*3/uL Normal 1.2-3.4 [facility] Comment on above: Performed By: #### A CBC, LIPA2, CMPF #### Testing performed at [address] [address] Lymphocytes/100 WBC (Bld) 29.1 % Normal 20.0-55.0 [facility] Comment on above: Performed By: #### A CBC, LIPA2, CMPF #### Testing performed at [address] [address] Monocytes (Bld) [#/Vol] 0.4 10*3/uL Normal 0.0-0.7 [facility] Comment on above: Performed By: #### A CBC, LIPA2, CMPF #### Testing performed at [address] [address] Monocytes/100 WBC (Bld) 5.2 % Normal 0.0-10.0 [facility] Comment on above: Performed By: #### A CBC, LIPA2, CMPF #### Testing performed at [address] [address] Neutrophils/100 WBC (Bld) 63.2 % Normal 37.0-75.0 [facility] Comment on above: Performed By: #### A CBC, LIPA2, CMPF #### Testing performed at [address] [address] Erythrocyte distribution width (RBC) [Ratio] 13.1 % Normal 11.5-14.5 [facility] Comment on above: Performed By: #### A CBC, LIPA2, CMPF #### Testing performed at [address] [address] Hematocrit (Bld) [Volume fraction] 43.2 % Normal 36.0-48.0 [facility] Comment on above: Performed By: #### A CBC, LIPA2, CMPF #### [place] [address] Hemoglobin (Bld) [Mass/Vol] 14.2 g/dL Normal 12.0-16.0 [facility] Comment on above: Performed By: #### A CBC, LIPA2, CMPF #### [place] [address] MCH (RBC) [Entitic mass] 28.4 pg Normal 26.0-35.0 [facility] Comment on above: Performed By: #### A CBC, LIPA2, CMPF #### [place] [address] MCHC (RBC) [Mass/Vol] 32.9 g/dL Normal 27.0-37.0 [facility] Comment on above: Performed By: #### A CBC, LIPA2, CMPF #### [place] [address] MCV (RBC) [Entitic vol] 86.5 fL Normal 80.0-100.0 [facility] Comment on above: Performed By: #### A CBC, LIPA2, CMPF #### [place] [address] Platelet mean volume (Bld) [Entitic vol] 8.5 fL Normal 7.4-11.0 [facility] Comment on above: Performed By: #### A CBC, LIPA2, CMPF #### Testing performed at [place] [id number] Platelets (Bld) [#/Vol] 352 10*3/uL Normal 130.0-400.0 [facility] Comment on above: Performed By: #### A CBC, LIPA2, CMPF #### [place] [address] RBC (Bld) [#/Vol] 4.99 10*6/uL Normal 4.0-5.4 [facility] Comment on above: Performed By: #### A CBC, LIPA2, CMPF #### [place] [address] WBC (Bld) [#/Vol] 7.9 10*3/uL Normal 3.6-11.0 [facility] Comment on above: Performed By: #### A CBC, LIPA2, CMPF #### [place] [address] CMP FASTINGon 06-12-2022 A:G RATIO 1.5 RATIO Normal 1.3-2.2 [facility] Comment on above: Performed By: #### A CBC, LIPA2, CMPF #### [place] [address] ALBUMIN 4.5 G/dl Normal 3.5-5.0 [facility] Comment on above: Performed By: #### A CBC, LIPA2, CMPF #### [place] [address] ALP [Catalytic activity/Vol] 79 U/L Normal 38-126 [facility] Comment on above: Performed By: #### A CBC, LIPA2, CMPF #### [place] [address] ALT [Catalytic activity/Vol] 53 U/L High <35 [facility] Comment on above: Performed By: #### A CBC, LIPA2, CMPF #### [place] [address] AST [Catalytic activity/Vol] 37 U/L High 14-36 [facility] Comment on above: Performed By: #### A CBC, LIPA2, CMPF #### Testing performed at [place] [id number] Bilirubin [Mass/Vol] 0.2 mg/dL Normal 0.2-1.3 [facility] Comment on above: Performed By: #### A CBC, LIPA2, CMPF #### [place] [address] Calcium [Mass/Vol] 9.4 mg/dL Normal 8.4-10.2 [facility] Comment on above: Performed By: #### A CBC, LIPA2, CMPF #### [place] [address] Chloride [Moles/Vol] 104 mmol/L Normal 98-107 [facility] Comment on above: Result Comment: [place] dawkins note: Triglyceride levels of 600mg/dL or higher may positively bias chloride results by approximately 2.1 mmol Performed By: #### A CBC, LIPA2, CMPF #### [place] [address] CO2 [Moles/Vol] 26 mmol/L Normal 22-30 [facility] Comment on above: Performed By: #### A CBC, LIPA2, CMPF #### [place] [address] Creatinine [Mass/Vol] 0.70 mg/dL Normal 0.7-1.2 [facility] Comment on above: Performed By: #### A CBC, LIPA2, CMPF #### [place] [address] EST. GFR, 125 ml/min/1.73sq.m [facility] Comment on above: Performed By: #### A CBC, LIPA2, CMPF #### [place] [address] EST. GFR,Non 103 ml/min/1.73sq.m [facility] Comment on above: Performed By: #### A CBC, LIPA2, CMPF #### [place] [address] GFR Information Average GFR for 30-3 9 years old = 107. Normal [facility] Comment on above: Result Comment: [employer] Person bria Kidney disease, GFR = <60. Kidney failure, GFR = <15. The GFR estimate is not adjusted for extreme body surface area or acute process, nor has it been validated for women or ethnic groups other than and . Testing performed at [place] [address] Performed By: #### A CBC, LIPA2, CMPF #### [place] [address] Glucose [Mass/Vol] 86 mg/dL Normal 70-100 [facility] Comment on above: Result Comment: NORMAL <100 mg/dL PREDIABETES 101-126 mg/dL DIABETES 126 mg/dL or higher Performed By: #### A CBC, LIPA2, CMPF #### [place] [address] Potassium [Moles/Vol] 4.6 mmol/L Normal 3.5-5.1 [facility] Comment on above: Performed By: #### A CBC, LIPA2, CMPF #### [place] [address] Protein [Mass/Vol] 7.5 g/dL Normal 6.3-8.2 [facility] Comment on above: Performed By: #### A CBC, LIPA2, CMPF #### [place] [address] Sodium [Moles/Vol] 137 mmol/L Normal 137-145 [facility] Comment on above: Performed By: #### A CBC, LIPA2, CMPF #### [place] [address] Urea nitrogen [Mass/Vol] 15 mg/dL Normal 7-20 [facility] Comment on above: Performed By: #### A CBC, LIPA2, CMPF #### Testing performed at [place] [id number] CT ABDOMEN/PELVIS WITHOUT CO NTRASTon 06-12-2022 CT [...] present in the abdomen or pelvis. Normal [facility] LIPASE,SERUMon 06-12-2022 LIPASE,SERUM 159 U/L Normal 23-300 [facility] Comment on above: Result Comment: Test ing performed at [place] [address] Performed By: #### A CBC, LIPA2, CMPF #### [place] [address] URINE HCG QUALon 06-12-2022 Beta HCG ( test) Ql (U) Negative Normal [facility] Comment on above: Result Comment: Test ing performed at [place] [address] Performed By: #### U MAC, UHCGT, UMIC #### [place] [address] URINE MACROSCOPICon 06-12-19 23 Bilirubin Ql (U) Negative Normal NEGATIVE [facility] Comment on above: Performed By: #### U MAC, UHCGT, UMIC #### [place] [address] Clarity (U) CLEAR Normal CLEAR [facility] Comment on above: Performed By: #### U MAC, UHCGT, UMIC #### [place] [address] Color (U) YELLOW Normal YELLOW [facility] Comment on above: Performed By: #### U MAC, UHCGT, UMIC #### [place] [address] Glucose Ql (U) Negative Normal NEGATIVE [facility] Comment on above: Performed By: #### U MAC, UHCGT, UMIC #### [place] [address] pH (U) 7.0 [pH] Normal 5.0-7.0 [facility] Comment on above: Performed By: #### U MAC, UHCGT, UMIC #### [place] [address] URINE HEMOGLOBIN TRACE-LYSED Abnormal NEGATIVE [facility] Comment on above: Performed By: #### U MAC, UHCGT, UMIC #### [place] [address] URINE KETONE Negative Normal NEGATIVE [facility] Comment on above: Performed By: #### U MAC, UHCGT, UMIC #### [place] [address] URINE LEUKOTEST Negative Normal NEGATIVE [facility] Comment on above: Performed By: #### U MAC, UHCGT, UMIC #### [place] [address] URINE NITRATES Negative Normal NEGATIVE [facility] Comment on above: Performed By: #### U MAC, UHCGT, UMIC #### [place] [address] URINE SPEC GRAVITY 1.015 Normal 1.010-1.025 [facility] Comment on above: Performed By: #### U MAC, UHCGT, UMIC #### [place] [address] URINE TOTAL PROTEIN Negative Normal NEGATIVE [facility] Comment on above: Performed By: #### U MAC, UHCGT, UMIC #### [place] [address] Urobilinogen Qn (U) 0.2 {Iva'U}/dL Normal 0.2-1.0 [facility] Comment on above: Performed By: #### U MAC, UHCGT, UMIC #### [place] [address] URINE MICROSCOPICon 06-12-19 23 Bacteria LM.HPF (Urine sed) [#/Area] Negative Normal NEGATIVE [facility] Comment on above: Performed By: #### U MAC, UHCGT, UMIC #### [place] [address] CASTS NONE Normal NONE [facility] Comment on above: Performed By: #### U MAC, UHCGT, UMIC #### [place] [address] CRYSTAL NONE Normal NONE [facility] Comment on above: Performed By: #### U MAC, UHCGT, UMIC #### [place] [address] Epithelial cells LM Ql (Urine sed) 1 TO 5 Normal [facility] Comment on above: Performed By: #### U MAC, UHCGT, UMIC #### [place] [address] Mucus Ql (Urine sed) Negative Normal NEGATIVE [facility] Comment on above: Performed By: #### U MAC, UHCGT, UMIC #### Testing performed at [place] [address] URINE COMMENT CULTURE CRITERIA NOT MET, NO CULTURE PERFORMED. Normal [facility] Comment on above: Performed By: #### U MAC, UHCGT, UMIC #### [place] [address] URINE RBC'S 1 TO 5 Normal NEGATIVE [facility] Comment on above: Performed By: #### U MAC, UHCGT, UMIC #### [place] [address] URINE WBC'S Negative Normal NEGATIVE [facility] Comment on above: Performed By: #### U [facility] [place], [facility] [place], [facility] #### Testing performed at [facility] [address] [place] [address] XR Lumbar Spine 2-3 Views (S tandard)on 03-12-2022 Unremarkable exam. [employer] Workstation ID: [id number] [employer] EXAMINATION: THREE XRAY VIEWS OF THE LUMBAR [...] seen. No significant degenerative changes are noted. Gazelle Jane Whitley MD - 03/12/2022 EXAMINATION: THREE XRAY VIEWS [...] degenerative changes are noted. IMPRESSION: Unremarkable exam. [employer] Workstation ID: [id number] [facility] XR Lumbar Spine 2-3 Views (S tandard)Ordered By: Jane Whitley on 03-12-2022 [facility] Work Phone: XR LUMBAR SPINE 2-3 [...] noted. IMPRESSION: Unremarkable exam. [employer] Workstation ID: [id number] Dictated by: JANE WHITLEY on Sat Mar 12, 2022 10:12:22 AM EDT Transcribed by: KIM TRUONG on Sat Mar 12, 2022 11:14:28 AM EDT Finalized by: JANE WHITLEY on Sat Mar 12, 2022 11:30:44 AM EDT [facility] Comment on above: Order Comment: Injur y/Trauma or Illness?:Illness/Other How long have you had these symptoms (acute/chronic)?:Chronic Reason for exam?:low back pain History of cancer?:na Surgeries, chemotherapy, or radiation?:na Type of Exam?:Initial Additional signs and symptoms?:pt states pain for years, no recent injury XR Lumbar Spine 2-3 Views (S tandard)on 03-09-2022 Radiology Study observation (narrative) [facility] Basic metabolic 2000 panelon 02-28-2022 Anion gap [Moles/Vol] 14 mmol/L 10 - 2 0 mmol/L [facility] Calcium [Mass/Vol] 9.1 mg/dL 8.4 - 10. 2 mg/dL [facility] Chloride [Moles/Vol] 107 mmol/L 98 - 10 8 mmol/L [facility] Creatinine [Mass/Vol] 0.62 mg/dL 0.40 - 1.10 mg/dL [facility] GFR/1.73 sq M.predicted CKD-EPI (S/P/Bld) [Vol rate/Area] 122 - PINF [facility] Comment on above: Estimated GFR was ca lculated using the 2020 CKD-EPI creatinine equation. Glucose [Mass/Vol] 80 mg/dL 65 - 99 mg/dL [facility] HCO3 [Moles/Vol] 23 mmol/L 21 - 32 mmol/L [facility] Interpretation and review of laboratory results Normal [facility] Potassium [Moles/Vol] 3.7 mmol/L 3.5 - 5.1 mmol/L [facility] Sodium [Moles/Vol] 140 mmol/L 135 - 145 mmol/L [facility] Urea nitrogen [Mass/Vol] 8 mg/dL 8 - 25 mg/dL [facility] Urea nitrogen/Creatinine [Mass ratio] 12.9 mg/mg 10 - 20 [facility] has implemented the eGFR calculation approach that does not have a coefficient for race that conforms to the NKF-ASN Task Force Recommendations. [facility] CBC panel Auto (Bld)on 02-28 Erythrocyte distribution width (RBC) [Entitic vol] 11.9 % 11.6 - 14.8 % [facility] Hematocrit (Bld) [Volume fraction] 40.2 % 36 - 46 % [facility] Hemoglobin (Bld) [Mass/Vol] 13.5 g/dL 12 - 16 g/dL [facility] MCH (RBC) [Entitic mass] 29.5 pg 26 - 34 pg [facility] MCHC (RBC) [Mass/Vol] 33.6 g/dL 31 - 37 g/dL [facility] MCV (RBC) [Entitic vol] 88.0 fL 80 - 100 fL [facility] Nucleated RBC (Bld) [#/Vol] 0.00 10*3/uL [facility] Nucleated RBC/100 WBC (Bld) [Ratio] 0.0 % [facility] Platelet mean volume (Bld) [Entitic vol] 11.2 fL 9.4 - 12.4 fL [facility] Platelets (Bld) [#/Vol] 285 10*3/uL [facility] RBC (Bld) [#/Vol] 4.57 10*6/uL [facility] WBC (Bld) [#/Vol] 7.05 10*3/uL [facility] 12 Leadon 02-28-2022 Atrial Rate 63 BPM [facility] P [place] 54 degrees [facility] P-R Interval 156 ms [facility] Q-T Interval 424 ms [facility] QRS Duration 84 ms [facility] QTC Calculation (Bezet) 433 ms [facility] R [place] 32 degrees [facility] T [place] 19 degrees [facility] Ventricular Rate 63 BPM [facility] Normal sinus rhythm Normal ECG Confirmed by Oli Pepper ([id number]) on 02/28/2022 8:11:14 AM MUSE [facility] Lipid 1996 panelon 2 Cholesterol [Mass/Vol] 179 mg/dL 100 - 199 mg/dL [facility] Comment on above: National Cholesterol Education Program Guidelines: Cholesterol Desirable: <200 mg/dL Borderline High: 200-239 mg/dL High: greater than or equal to 240 mg/dL Cholesterol in HDL [Mass/Vol] 41 mg/dL 40 - 59 mg/dL [facility] Cholesterol in LDL [Mass/Vol] 112 mg/dL 10 - 130 mg/dL [facility] Comment on above: National Cholesterol Education Program Guidelines: LDL Cholesterol Optimal: <100 mg/dL Near Optimal/above Optimal: 100-129 mg/dL Borderline High: 130-159 mg/dL High: 160-189 mg/dL Very High: greater than or equal to 190 mg/dL Cholesterol non HDL [Mass/Vol] 138 mg/dL [facility] Comment on above: National Cholesterol Education Program Guidelines: NON HDL Cholesterol Desirable: <130 mg/dL Borderline High: 130-159 mg/dL High: 160-189 mg/dL Very High: > or = 190 mg/dL Cholesterol.total/Chol esterol in HDL [Mass ratio] 4.4 {ratio} ratio [facility] Comment on above: Female Cholesterol/H DL Ratio: Average risk: 4.4 1/2 average risk: 3.3 2 x average risk: 7.1 Triglyceride [Mass/Vol] 130 mg/dL 30 - 150 mg/dL [facility] Comment on above: National Cholesterol Education Program Guidelines: Triglyceride Normal: <150 mg/dL Borderline High: 150-199 mg/dL High: 200-499 mg/dL Very High: greater than or equal to 500 mg/dL No Panel Informationon 02-28 [facility] Vitamin D 1,25 DihydroxyOrde red By: Keira Nelson on 02-28-2022 1,25-dihydroxyvitamin D [Mass/Vol] 50.2 pg/mL 19.9 - 79.3 pg/mL [facility] Interpretation and review of laboratory results Normal [facility] Assay performed usin haleigh Diasorin CLIA methodology. [facility] Basic metabolic 2000 panelOr dered By: Shruthi Faustin on 02-27-2022 Anion gap [Moles/Vol] 15 mmol/L 10 - 2 0 mmol/L [facility] Calcium [Mass/Vol] 8.8 mg/dL 8.4 - 10. 2 mg/dL [facility] Chloride [Moles/Vol] 101 mmol/L 98 - 10 8 mmol/L [facility] Creatinine [Mass/Vol] 0.70 mg/dL 0.40 - 1.10 mg/dL [facility] GFR/1.73 sq M.predicted CKD-EPI (S/P/Bld) [Vol rate/Area] 119 - PINF [facility] Comment on above: Estimated GFR was ca lculated using the 2020 CKD-EPI creatinine equation. Glucose [Mass/Vol] 103 mg/dL High 65 - 99 mg/dL [facility] HCO3 [Moles/Vol] 24 mmol/L 21 - 32 mmol/L [facility] Interpretation and review of laboratory results Abnormal [facility] Potassium [Moles/Vol] 3.8 mmol/L 3.5 - 5.1 mmol/L [facility] Sodium [Moles/Vol] 136 mmol/L 135 - 145 mmol/L [facility] Urea nitrogen [Mass/Vol] 10 mg/dL 8 - 25 mg/dL [facility] Urea nitrogen/Creatinine [Mass ratio] 14.3 mg/mg 10 - 20 [facility] has implemented the eGFR calculation approach that does not have a coefficient for race that conforms to the NKF-ASN Task Force Recommendations. [facility] CBC Auto Differentialon 02-10 Basophils (Bld) [#/Vol] 0.02 10*3/uL [facility] Basophils/100 WBC (Bld) 0.3 % [facility] Eosinophils (Bld) [#/Vol] 0.11 10*3/uL [facility] Eosinophils/100 WBC (Bld) 1.5 % [facility] Erythrocyte distribution width (RBC) [Entitic vol] 11.9 % 11.6 - 14.8 % [facility] Hematocrit (Bld) [Volume fraction] 43.8 % 36 - 46 % [facility] Hemoglobin (Bld) [Mass/Vol] 14.7 g/dL 12 - 16 g/dL [facility] Immature granulocytes (Bld) [#/Vol] 0.02 10*3/uL [facility] Immature granulocytes/100 WBC (Bld) 0.30 % [facility] Comment on above: The IG parameter is the percentage of metamyelocytes, myelocytes and promyelocytes. An immature granulocyte count (IG) of 1% or more suggests the possibility of infection, an IG count of 3% is very likely related to an infection. Lymphocytes (Bld) [#/Vol] 2.38 10*3/uL [facility] Lymphocytes/100 WBC (Bld) 32.2 % [facility] MCH (RBC) [Entitic mass] 29.5 pg 26 - 34 pg [facility] MCHC (RBC) [Mass/Vol] 33.6 g/dL 31 - 37 g/dL [facility] MCV (RBC) [Entitic vol] 87.8 fL 80 - 100 fL [facility] Monocytes (Bld) [#/Vol] 0.34 10*3/uL [facility] Monocytes/100 WBC (Bld) 4.6 % [facility] Neutrophils (Bld) [#/Vol] 4.53 10*3/uL [facility] Neutrophils/100 WBC (Bld) 61.1 % [facility] Nucleated RBC (Bld) [#/Vol] 0.00 10*3/uL [facility] Nucleated RBC/100 WBC (Bld) [Ratio] 0.0 % [facility] Platelet mean volume (Bld) [Entitic vol] 11.1 fL 9.4 - 12.4 fL [facility] Platelets (Bld) [#/Vol] 334 10*3/uL [facility] RBC (Bld) [#/Vol] 4.99 10*6/uL [facility] WBC (Bld) [#/Vol] 7.40 10*3/uL [facility] COVID-19, MOLECULARon 2021 SARS-CoV-2 (COVID-19) RNA VALERIE+probe Ql (Unsp spec) Not detected Normal Not Detected [facility] Comment on above: Order Comment: This test [...] at the following links: For Healthcare Providers: https://www.fda.gov/media/962559/download For Patients: https://www.fda.gov/media/962045/download Performed By: #### L [id number] #### [facility] [address] [place] [address] Jona Barber M.D. [id number] COVID-19, MolecularOrdered B y: Ofelia Broderick on 02-27-2022 SARS-CoV-2 (COVID-19) RNA VALERIE+probe Ql (Resp) Not detected Not Detected [facility] CT ANGIOGRAM BRAIN WITH PERF USIONon 02-27-2022 CT ANGIOGRAM BRAIN WITH PERFUSION EXAMINATION: [...] MonFeb 27, 2022 4:18:11 PM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 Eosinophils/100 WBC (Bld) 1 % 1 - 4 % [place] Erythrocyte distribution width (RBC) [Ratio] 12.6 % 11.8 - 14.4 % [place] Hematocrit (Bld) [Volume fraction] 41.1 % 36.3 - 47.1 % [place] Hemoglobin (Bld) [Mass/Vol] 13.7 g/dL 11.9 - 15.1 g/dL [place] Immature granulocytes (Bld) [#/Vol] 10*3/uL [place] Immature granulocytes (Bld) [#/Vol] 0 % 0 [place] Interpretation and review of laboratory results Abnormal [place] Lymphocytes (Bld) [#/Vol] 1.81 10*3/uL [place] Lymphocytes/100 WBC (Bld) 21 % Low 24 - 43 % [place] MCH (RBC) [Entitic mass] 29.8 pg 25.2 - 33.5 pg [place] MCHC (RBC) [Mass/Vol] 33.3 g/dL 28.4 - 34.8 g/dL [place] MCV (RBC) [Entitic vol] 89.3 fL 82.6 - 102.9 fL [place] Monocytes (Bld) [#/Vol] 0.32 10*3/uL [place] Monocytes/100 WBC (Bld) 4 % 3 - 12 % [place] Platelet mean volume (Bld) [Entitic vol] 10.6 fL 8.1 - 13.5 fL [place] Platelets (Bld) [#/Vol] 257 10*3/uL [place] Platelets (Bld) [#/Vol] NOT REPORTED [place] RBC (Bld) [#/Vol] 4.60 10*6/uL 3.95 - 5.1 1 m/uL [place] RBC morphology finding Nom (Bld) NOT REPORTED [place] Segmented neutrophils/100 WBC (Bld) 74 % High 36 - 65 % [place] Segs Absolute 6.33 [place] WBC (Bld) [#/Vol] 0.0 10*3/uL 0.0 per 10 0 WBC [place] WBC (Bld) [#/Vol] 8.6 10*3/uL [place] WBC Morphology NOT REPORTED [place] Comprehensive Metabolic Pane levon 07-14-2020 Albumin [Mass/Vol] 3.8 g/dL 3.5 - 5.2 g/dL [place] Albumin/Globulin [Mass ratio] 1.3 {ratio} [place] ALP [Catalytic activity/Vol] 63 U/L 35 - 104 U/L [place] ALT [Catalytic activity/Vol] 9 U/L 5 - 33 U/L [place] Anion gap [Moles/Vol] 9 mmol/L 9 - 17 mmol/L [place] AST [Catalytic activity/Vol] 13 U/L <32 [place] Bilirubin Ql (U) 0.25 mg/dL Low 0.3 - 1.2 mg/dL [place] Bun/Cre Ratio 17 [place] Calcium [Mass/Vol] 9.3 mg/dL 8.6 - 10. 4 mg/dL [place] Chloride [Moles/Vol] 103 mmol/L 98 - 10 7 mmol/L [place] CO2 [Moles/Vol] 24 mmol/L 20 - 31 mmol/L [place] Creatinine [Mass/Vol] 0.48 mg/dL Low 0.5 - 0.9 mg/dL [place] GFR >60 >60 mL/min [place] GFR Non- >60 >60 mL/min [place] Glucose [Mass/Vol] 108 mg/dL High 70 - 99 mg/dL [place] Interpretation and review of laboratory results Abnormal [place] Potassium [Moles/Vol] 3.8 mmol/L 3.7 - 5.3 mmol/L [place] Protein [Mass/Vol] 6.8 g/dL 6.4 - 8.3 g/dL [place] Sodium [Moles/Vol] 136 mmol/L 135 - 144 mmol/L [place] Urea nitrogen [Mass/Vol] 8 mg/dL 6 - 20 mg/dL [place] Metabolic Panelon 07-14-2020 GFR/1.73 sq M predicted among non-blacks MDRD (S/P/Bld) [Vol rate/Area] [place] Comment on above: Stage 1: Some [...] body mass. Additional eGFR calculator available at: http://www.[employer]/multiple_crcl_2012.htm Troponinon 07-14-2020 Troponin I.cardiac [Mass/Vol] NOT REPORTED [place] Troponin T.cardiac [Mass/Vol] NOT REPORTED <0.03 ng/mL [place] Troponin, High Sensitivity <6 0 - 14 ng/L [place] Comment on above: High Sensitivity Troponin values cannot be compared with other Troponin methodologies. Patients with high levels of Biotin oral intake (i.e >5mg/day) may have falsely decreased Troponin levels. Samples collected within 8 hours of biotin intake may require additional information for diagnosis. XR CHEST (SINGLE VIEW FRONTA L)on 07-14-2020 No radiographic evidence of acute cardiopulmonary disease. [place] David, Mhpn Incoming Radiant Results From [employer] - 07/14/2020 1:42 PM EST EXAMINATION: ONE XRAY VIEW OF THE CHEST 07/14/2020 1:35 pm COMPARISON: None. HISTORY: ORDERING SYSTEM PROVIDED HISTORY: palpitations TECHNOLOGIST PROVIDED HISTORY: palpitations FINDINGS: Cardiomediastinal silhouette within normal limits. Lungs and costophrenic sulci are clear. No pneumothorax or subdiaphragmatic free air. No acute osseous abnormality identified. IMPRESSION: No radiographic evidence of acute cardiopulmonary disease. [place] EXAMINATION: ONE XRA Y VIEW OF THE CHEST 07/14/2020 1:35 pm COMPARISON: None. HISTORY: ORDERING SYSTEM PROVIDED HISTORY: palpitations TECHNOLOGIST PROVIDED HISTORY: palpitations FINDINGS: Cardiomediastinal silhouette within normal limits. Lungs and costophrenic sulci are clear. No pneumothorax or subdiaphragmatic free air. No acute osseous abnormality identified. [place] Urinalysis with microscopico n 05-23-2020 Amorphous, UA NOT REPORTED None [place] Bacteria, UA 1+ Abnormal None [place] Bilirubin Urine Negative NEGATIVE [place] Casts UA NOT REPORTED /LPF [place] Color, UA YELLOW YELLOW [place] Crystals, UA NOT REPORTED None /HPF [place] Epithelial Cells UA 0 TO 2 [place] Glucose, Ur Negative NEGATIVE [place] Interpretation and review of laboratory results Abnormal [place] Ketones Ql (U) Negative NEGATIVE [place] Leukocyte esterase Test strip Ql (U) Negative NEGATIVE [place] Mucus, UA TRACE Abnormal None [place] Nitrite, Urine Negative NEGATIVE [place] Other Observations UA NOT REPORTED NOT REQ. [place] pH, UA 7.5 [place] Protein (U) [Mass/Vol] Negative NEGATIVE [place] RBC (U) [#/Vol] 2 TO 5 [place] Renal Epithelial, UA NOT REPORTED 0 /HPF [place] Specific [place], UA 1.020 [place] Trichomonas, UA NOT REPORTED None [place] Turbidity UA CLEAR CLEAR [place] Urinalysis Comments NOT REPORTED [place], [place] Urine Hgb 2+ Abnormal NEGATIVE [place] Urobilinogen, Urine Normal Normal [place] WBC, UA None [place] Yeast, UA NOT REPORTED None [place] - [place] hCG, quantitative, on 05-23-2020 hCG Quant [id number] High <5 IU/L [place] Comment on above: Non-preg premeno <=5 Postmeno <=8 Male <=3 If HCG results do not concur with clinical observations, additional testing to confirm results is recommended. Elevated results not associated with may be found in patients with other diseases such as tumors of the germ cells (testis, ovaries, etc.), bladder, pancreas, stomach, lungs, and liver. Interpretation and review of laboratory results Abnormal [place] Basic Metabolic Panelon Anion gap [Moles/Vol] 9 mmol/L 9 - 17 mmol/L [place] Bun/Cre Ratio 14 [place] Calcium [Mass/Vol] 9.5 mg/dL 8.6 - 10. 4 mg/dL [place] Chloride [Moles/Vol] 102 mmol/L 98 - 10 7 mmol/L [place] CO2 [Moles/Vol] 23 mmol/L 20 - 31 mmol/L [place] Creatinine [Mass/Vol] 0.63 mg/dL 0.5 - 0.9 mg/dL [place] GFR >60 >60 mL/min [place] GFR Non- >60 >60 mL/min [place] Glucose [Mass/Vol] 159 mg/dL High 70 - 99 mg/dL [place] Interpretation and review of laboratory results Abnormal [place] Potassium [Moles/Vol] 3.5 mmol/L Low 3.7 - 5.3 mmol/L [place] Sodium [Moles/Vol] 134 mmol/L Low 135 - 144 mmol/L [place] Urea nitrogen [Mass/Vol] 9 mg/dL 6 - 20 mg/dL [place] CBCon 05-20-2020 Erythrocyte distribution width (RBC) [Ratio] 11.8 % 11.8 - 14.4 % [place] Hematocrit (Bld) [Volume fraction] 44.0 % 36.3 - 47.1 % [place] Hemoglobin (Bld) [Mass/Vol] 14.7 g/dL 11.9 - 15.1 g/dL [place] MCH (RBC) [Entitic mass] 30.0 pg 25.2 - 33.5 pg [place] MCHC (RBC) [Mass/Vol] 33.4 g/dL 28.4 - 34.8 g/dL [place] MCV (RBC) [Entitic vol] 89.8 fL 82.6 - 102.9 fL [place] Platelet mean volume (Bld) [Entitic vol] 11.0 fL 8.1 - 13.5 fL [place] Platelets (Bld) [#/Vol] 287 10*3/uL [place] RBC (Bld) [#/Vol] 4.90 10*6/uL 3.95 - 5.1 1 m/uL [place] WBC (Bld) [#/Vol] 0.0 10*3/uL 0.0 per 10 0 WBC [place] WBC (Bld) [#/Vol] 9.6 10*3/uL [place] Metabolic Panelon 05-20-2020 GFR/1.73 sq M predicted among non-blacks MDRD (S/P/Bld) [Vol rate/Area] [place] Comment on above: Average GFR for 30-3 9 years old: 107 mL/min/1.73sq m Chronic Kidney Disease: <60 mL/min/1.73sq m Kidney failure: <15 mL/min/1.73sq m eGFR calculated using average adult body mass. Additional eGFR calculator available at: http://www.[employer]APR/multiple_crcl_2012.htm Stage 1: Some kidney damage normal GFR Stage 2: Mild kidney damage GFR 60-89 Stage 3: Moderate kidney damage GFR 30-59 Stage 4: Severe kidney damage GFR 15-29 Stage 5: Severe kidney damage GFR <15 ESRD - chronic treatment by dialysis or transplant Microscopic Urinalysison Amorphous, UA NOT REPORTED None [facility] [place] Bacteria, UA NOT REPORTED None [place] Casts UA NOT REPORTED /LPF [place] Crystals, UA NOT REPORTED None /HPF [place] Epithelial Cells UA 0 TO 2 [place] Mucus, UA NOT REPORTED None [place] Other Observations UA NOT REPORTED NOT REQ. [place] RBC (U) [#/Vol] 0 TO 2 [facility] [place] Renal Epithelial, UA NOT REPORTED 0 /HPF [place] Trichomonas, UA NOT REPORTED None [place] WBC, UA 0 TO 2 [place] Yeast, UA NOT REPORTED None [place] - [place] US OB LESS THAN 14 WEEKS SIN GLE OR FIRST GESTATIONon 05-20-2020 David, Mhpn Incoming Radiant Results From [employer] - 05/20/2020 4:46 PM EST EXAMINATION: TRANSABDOMINAL FIRST TRIMESTER OBSTETRIC PELVIC ULTRASOUND WITH COLOR DOPPLER FLOW 05/20/2020 TECHNIQUE: TRANSABDOMINAL PELVIC ULTRASOUND WITH COLOR DOPPLER FLOW COMPARISON: 04/29/2020 HISTORY: ORDERING SYSTEM PROVIDED HISTORY: vaginal bleeding, possibly 11 wks OB FINDINGS: Uterus: 12.5 x 7.1 cm Gestational Sac(s): Single normal appearing gestational sac. No evidence of subchorionic hemorrhage. Yolk Sac: Present Pole: Present [place] Rump Length: 3.58 cm Heart Rate: 173 Right ovary: 2.6 x 2.4 x 1.6 cm. Corpus luteum cyst measuring 1.6 cm. Left ovary: Not visualized Measurements: Estimated gestational age by current ultrasound: 10 weeks and 3 days Estimated Due Date: 12/13/2020 IMPRESSION: SLIUP with ultrasound age of 10 weeks 3 days. [place] SLIUP with ultrasoun d age of 10 weeks 3 days. [place] EXAMINATION: TRANSABDOMINAL FIRST TRIMESTER OBSTETRIC PELVIC ULTRASOUND WITH COLOR DOPPLER FLOW 05/20/2020 TECHNIQUE: TRANSABDOMINAL PELVIC ULTRASOUND WITH COLOR DOPPLER FLOW COMPARISON: 04/29/2020 HISTORY: ORDERING SYSTEM PROVIDED HISTORY: vaginal bleeding, possibly 11 wks OB FINDINGS: Uterus: 12.5 x 7.1 cm Gestational Sac(s): Single normal appearing gestational sac. No evidence of subchorionic hemorrhage. Yolk Sac: Present Pole: Present [place] Rump Length: 3.58 cm Heart Rate: 173 Right ovary: 2.6 x 2.4 x 1.6 cm. Corpus luteum cyst measuring 1.6 cm. Left ovary: Not visualized Measurements: Estimated gestational age by current ultrasound: 10 weeks and 3 days Estimated Due Date: 12/13/2020 [place] Urinalysis Reflex to Culture on 05-20-2020 Bilirubin Urine Negative NEGATIVE [place] Color, UA YELLOW YELLOW [place] Glucose, Ur Negative NEGATIVE [place] Interpretation and review of laboratory results Abnormal [place] Ketones Ql (U) Negative NEGATIVE [place] Leukocyte esterase Test strip Ql (U) Negative NEGATIVE [place] Nitrite, Urine Negative NEGATIVE [place] pH, UA 5.5 [place] Protein (U) [Mass/Vol] Negative NEGATIVE [place] Specific [place], UA 1.020 [place] Turbidity UA CLEAR CLEAR [place] Urinalysis Comments NOT REPORTED [place] Urine Hgb TRACE Abnormal NEGATIVE [place] Urobilinogen, Urine Normal Normal [place] Otheron 05-18-2020 Direct Exam Negative [place] VAGINITIS DNA PROBEon 2019 Direct Exam Positive Abnormal [place] Direct Exam Method of testing is a DNA probe intended for detection and identification of Jose David species, Gardnerella vaginalis, and Trichomonas vaginalis nucleic acid in vaginal fluid specimens from patients with symptoms of vaginitis/vaginosis. [place] Interpretation and review of laboratory results Abnormal [place] Special Requests NOT REPORTED [place] Specimen Description .VAGINA [place] HIV Screenon 04-02-2020 HIV Ag/Ab NONREACTIVE NONREACTIVE [place] Comment on above: No laboratory eviden ce of HIV infection. If acute HIV infection is suspected, consider testing for HIV-1 RNA. Hepatitis C Antibodyon 04-01 Hepatitis C Ab NONREACTIVE NONREACTIVE [place] Comment on above: The hepatitis C [...] ordering HCV RNA by PCR. PROFILE Ion 10--2 020 Basophils (Bld) [#/Vol] 0.04 10*3/uL [place] Basophils/100 WBC (Bld) 1 % 0 - 2 % [place] Differential Type NOT REPORTED [place] Eosinophils (Bld) [#/Vol] 0.16 10*3/uL [place] Eosinophils/100 WBC (Bld) 2 % 1 - 4 % [place] Erythrocyte distribution width (RBC) [Ratio] 12.1 % 11.8 - 14.4 % [place] Hematocrit (Bld) [Volume fraction] 43.7 % 36.3 - 47.1 % [place] Hemoglobin (Bld) [Mass/Vol] 14.3 g/dL 11.9 - 15.1 g/dL [place] Hepatitis B Surface Ag NONREACTIVE NONREACTIVE [place] Immature granulocytes (Bld) [#/Vol] 0 % 0 [place] Immature granulocytes (Bld) [#/Vol] 0.03 10*3/uL [place] Lymphocytes (Bld) [#/Vol] 2.31 10*3/uL [place] Lymphocytes/100 WBC (Bld) 29 % 24 - 43 % [place] MCH (RBC) [Entitic mass] 30.7 pg 25.2 - 33.5 pg [place] MCHC (RBC) [Mass/Vol] 32.7 g/dL 28.4 - 34.8 g/dL [place] MCV (RBC) [Entitic vol] 93.8 fL 82.6 - 102.9 fL [place] Monocytes (Bld) [#/Vol] 0.45 10*3/uL [place] Monocytes/100 WBC (Bld) 6 % 3 - 12 % [place] Platelet mean volume (Bld) [Entitic vol] 11.0 fL 8.1 - 13.5 fL [place] Platelets (Bld) [#/Vol] 274 10*3/uL [place] Platelets (Bld) [#/Vol] NOT REPORTED [place] RBC (Bld) [#/Vol] 4.66 10*6/uL 3.95 - 5.1 1 m/uL [place] RBC morphology finding Nom (Bld) NOT REPORTED [place] Rubella virus IgG Ql (S) 251.3 IU/mL [place] Comment on above: REFERENCE RANGE: <5.0 NON-REACTIVE (non-immune) 5.0 TO 9.9 EQUIVOCAL >=10.0 REACTIVE (immune) Segmented neutrophils/100 WBC (Bld) 62 % 36 - 65 % [place] Segs Absolute 5.05 [place] T. pallidum, IgG NONREACTIVE NONREACTIVE [place] Comment on above: T. pallidum antibodies are not detected. There is no serological evidence of infection with T. pallidum (early primary syphilis cannot be excluded). Retest in 2-4 weeks if syphilis is clinically suspect. WBC (Bld) [#/Vol] 8.0 10*3/uL [place] WBC (Bld) [#/Vol] 0.0 10*3/uL 0.0 per 10 0 WBC [place] WBC Morphology NOT REPORTED [place] TYPE AND SCREENon 1 ABO/Rh Positive [place] Urine Drug Screen, Comprehen siveon 04-01-2020 Amphetamine Screen, Ur Negative NEGATIVE [place] Barbiturate Screen, Ur Negative NEGATIVE [place] Benzodiazepine Screen, Urine Negative NEGATIVE [place] Buprenorphine Urine Negative NEGATIVE [place] Cannabinoid Scrn, Ur Negative NEGATIVE [place] Cocaine Metabolite, Urine Negative NEGATIVE [place] MDMA, Urine NOT REPORTED NEGATIVE [place] Methadone Screen, Urine Negative NEGATIVE [place] Methamphetamine, Urine Negative NEGATIVE [place] Opiates, Urine Negative NEGATIVE [facility] [place] Oxycodone Screen, Ur Negative NEGATIVE [facility] [place] Phencyclidine, Urine Negative NEGATIVE [facility] [place] Propoxyphene, Urine Negative NEGATIVE [facility] [place] Test Information NOT REPORTED [facility] [place] Tricyclic Antidepressants, Urine Negative NEGATIVE [facility] [place] Comment on above: Drug screen results are to be used for medical purposes only. All positive results are unconfirmed. Testing for employment or legal uses should be sent to a reference laboratory for confirmation. XR CHEST AP/PA AND LATon No acute cardiopulmonary findings. Linear lucency traversing through the lateral aspect of the right lower lung zone is suggestive of skin folding. [employer] Workstation ID: [id number] [facility] EXAMINATION: XR CHES T AP/PA AND [...] effusion. The visualized osseous structures appear unremarkable. [facility], Rad In Fu ji Speechq - 01/08/2020 [...] of skin folding. [employer] Workstation ID: [id number] [facility] CBC WITH AUTO DIFFERENTIALon 12-30-2019 Basophils (Bld) [#/Vol] 0.02 10*3/uL [facility] Basophils/100 WBC (Bld) 0.3 % [facility] Eosinophils (Bld) [#/Vol] 0.11 10*3/uL [facility] Eosinophils/100 WBC (Bld) 1.4 % [facility] Erythrocyte distribution width (RBC) [Entitic vol] 12.5 % 11.6 - 14.8 % [facility] Hematocrit (Bld) [Volume fraction] 46.5 % High 36 - 46 % [facility] Hemoglobin (Bld) [Mass/Vol] 14.6 g/dL 12 - 16 g/dL [facility] Immature granulocytes (Bld) [#/Vol] 0.02 10*3/uL [facility] Immature granulocytes/100 WBC (Bld) 0.30 % [facility] Comment on above: The IG parameter is the percentage of metamyelocytes, myelocytes and promyelocytes. An immature granulocyte count (IG) of 1% or more suggests the possibility of infection, an IG count of 3% is very likely related to an infection. Interpretation and review of laboratory results Abnormal [facility] Lymphocytes (Bld) [#/Vol] 2.33 10*3/uL [facility] Lymphocytes/100 WBC (Bld) 29.2 % [facility] MCH (RBC) [Entitic mass] 29.8 pg 26 - 34 pg [facility] MCHC (RBC) [Mass/Vol] 31.4 g/dL 31 - 37 g/dL [facility] MCV (RBC) [Entitic vol] 94.9 fL 80 - 100 fL [facility] Monocytes (Bld) [#/Vol] 0.31 10*3/uL [facility] Monocytes/100 WBC (Bld) 3.9 % [facility] Neutrophils (Bld) [#/Vol] 5.19 10*3/uL [facility] Neutrophils/100 WBC (Bld) 64.9 % [facility] Nucleated RBC (Bld) [#/Vol] 0.00 10*3/uL [facility] Nucleated RBC/100 WBC (Bld) [Ratio] 0.0 % [facility] Platelet mean volume (Bld) [Entitic vol] 11.6 fL 9.4 - 12.4 fL [facility] Platelets (Bld) [#/Vol] 260 10*3/uL [facility] RBC (Bld) [#/Vol] 4.90 10*6/uL [facility] WBC (Bld) [#/Vol] 7.98 10*3/uL [facility] Comprehensive Metabolic Pane levon 12-30-2019 Albumin [Mass/Vol] 4.6 g/dL 3.2 - 5.2 g/dL [facility] ALP [Catalytic activity/Vol] 67 U/L 40 - 140 U/L [facility] ALT [Catalytic activity/Vol] 15 U/L 0 - 40 U/L [facility] Anion gap [Moles/Vol] 18 mmol/L 10 - 2 0 mmol/L [facility] AST [Catalytic activity/Vol] 8 U/L 0 - 45 U/L [facility] Bilirubin [Mass/Vol] 0.3 mg/dL 0 - 1.3 mg/dL [facility] Calcium [Mass/Vol] 9.5 mg/dL 8.4 - 10. 2 mg/dL [facility] Chloride [Moles/Vol] 101 mmol/L 98 - 10 8 mmol/L [facility] Creatinine [Mass/Vol] 0.84 mg/dL 0.40 - 1.[address] [facility] GFR/1.73 sq M predicted among non-blacks MDRD (S/P/Bld) [Vol rate/Area] The eGFR should be used for monitoring renal function only and not for medication dosing. [facility] GFR/1.73 sq M.predicted CKD-EPI (S/P/Bld) [Vol rate/Area] 94 >=60 mL/min/1.73 m2 [facility] Glucose [Mass/Vol] 117 mg/dL High 65 - 99 mg/dL [facility] HCO3 [Moles/Vol] 23 mmol/L 21 - 32 mmol/L [facility] Interpretation and review of laboratory results Abnormal [facility] Potassium [Moles/Vol] 4.0 mmol/L 3.5 - 5.1 mmol/L [facility] Protein [Mass/Vol] 6.7 g/dL 6 - 8 g/dL [facility] Sodium [Moles/Vol] 138 mmol/L 135 - 145 mmol/L [facility] Urea nitrogen [Mass/Vol] 14 mg/dL 8 - 25 mg/dL [facility] Urea nitrogen/Creatinine [Mass ratio] 16.7 mg/mg [facility] ECG 12-LEADon 12-30-2019 Atrial Rate [facility] P [place] [facility] P-R Interval [facility] Q-T Interval [facility] Q-T Interval (corrected) [facility] QRS Duration [facility] QTC Calculation (Bezet) [facility] R [place] [facility] T [place] [facility] Ventricular Rate [facility] HEPATITIS C ANTIBODYon 12-29 HCV Ab Ql (S) Negative Negative [facility] Test performed using Neha JOSE ALFREDO immunoassay system [facility] HIV 1/2 SCREEN (4TH GENERATI ON)on 12-30-2019 HIV 1+2 Ab+HIV1 p24 Ag IA Ql Negative Negative [facility] This assay screens f or the presence of HIV-1, HIV-2 antibodies and for the presence of HIV-1 antigen. Test performed using Neha JOSE ALFREDO immunoassay system [facility] Otheron 12-30-2019 Interpretation and review of laboratory results Normal [facility] URINALYSISon 12-30-2019 Bacteria Auto Ql (U) Few Abnormal None Se en /hpf [facility] Bilirubin Ql (U) Negative Negative [facility] Clarity Refractometry automated (U) Clear Clear [facility] Color (U) Yellow Colorless, Yellow [facility] Epithelial cells.squamous Auto (Urine sed) [#/Area] 2 [facility] Glucose Auto test strip (U) [Mass/Vol] Negative Negative mg/dL [facility] Hemoglobin Auto test strip Ql (U) Small Abnormal Negative [facility] Interpretation and review of laboratory results Abnormal [facility] Ketones (U) [Mass/Vol] Negative Negat lizzie mg/dL [facility] Leukocyte esterase Auto test strip Ql (U) Trace Abnormal Negative [facility] h Mucus Auto (Urine sed) [#/Area] Rare None Seen, Rare /lpf [facility] Nitrite Auto test strip Ql (U) Negative Negative [facility] pH (U) 5.0 [pH] [facility] Protein (U) [Mass/Vol] Negative Negat lizzie mg/dL [facility] RBC Auto (Urine sed) [#/Area] 3 [facility] Specific gravity (U) [Rel density] 1.014 [facility] Urobilinogen (U) [Mass/Vol] <2.0 <2.0 mg/dL [facility] WBC Auto (Urine sed) [#/Area] 1 [facility] Microscopic examinat ion is performed on all urinalysis samples and only positive findings are reported. The test for blood on the chemical analytic portion of urinalysis may also be positive due to hemoglobinuria and myoglobinuria and if red blood cells are present they are quantified by microscopic examination. [facility] hCG, Serum, Qualitativeon Beta HCG ( test) Ql Negative Negative [facility] Interpretation and review of laboratory results Normal [facility] Negative: The result is less than or equal to 5 mIU/mL of HCG. [facility] Vital Signs Date Time Vital Sign Value Performing Clinician Facility 03-08-2024 08:18-0400 Body height 170.2 cm Kelvin Shelton APRN.STAFF RESEARCH SCIENTIST Work Phone: [facility] 03-08-2024 08:18-0400 Body mass index (BMI) [Ratio] 26.83 kg/m2 Kelvin Shelton APRN.STAFF RESEARCH SCIENTIST Work Phone: [facility] 03-08-2024 08:18-0400 Body weight 77.7 kg Kelvin Shelton APRN.STAFF RESEARCH SCIENTIST Work Phone: [facility] 03-08-2024 08:18-0400 Diastolic blood pressure 81 mm[Hg] Kelvin Shelton APRN.STAFF RESEARCH SCIENTIST Work Phone: [facility] 03-08-2024 08:18-0400 Heart rate 140 /min Kelvin Shelton APRN.STAFF RESEARCH SCIENTIST Work Phone: [facility] 03-08-2024 08:18-0400 SaO2% (BldA) [Mass fraction] 97 % Kelvin Shelton APRN.STAFF RESEARCH SCIENTIST Work Phone: [facility] 03-08-2024 08:18-0400 Systolic blood pressure 127 mm[Hg] Kelvin Shelton APRN.STAFF RESEARCH SCIENTIST Work Phone: [facility] 03-06-2024 13:23-0400 Diastolic blood pressure 86 mm[Hg] Carmelina Furlong CAR BODY INSPECTOR Work Phone: [facility] 03-06-2024 13:23-0400 Heart rate 88 /min Carmelina Furlong CAR BODY INSPECTOR Work Phone: [facility] 03-06-2024 13:23-0400 Respiratory rate 14 /min Carmelina Furlong CAR BODY INSPECTOR Work Phone: [facility] 03-06-2024 13:23-0400 SaO2% (BldA) [Mass fraction] 99 % Carmelina ALLEN Work Phone: [facility] 03-06-2024 13:23-0400 Systolic blood pressure 127 mm[Hg] Carmelina ALLEN Work Phone: [facility] 02-15-2024 08:56-0400 Body height 170.2 cm Chris Mccauley MD Work Phone: [facility] 02-15-2024 08:56-0400 Body mass index (BMI) [Ratio] 26.83 kg/m2 Chris Mccauley MD Work Phone: [facility] 02-15-2024 08:56-0400 Body weight 77.7 kg Chris Mccauley MD Work Phone: [facility] 02-15-2024 08:56-0400 Diastolic blood pressure 73 mm[Hg] Chris Mccauley MD Work Phone: [facility] 02-15-2024 08:56-0400 Heart rate 90 /min Chris Mccauley MD Work Phone: [facility] 02-15-2024 08:56-0400 Systolic blood pressure 125 mm[Hg] Chris Mccauley MD Work Phone: [facility] 12-22-2023 14:44-0400 Diastolic blood pressure 74 mm[Hg] Megan Alphonseell PA-C Work Phone: [facility] 12-22-2023 14:44-0400 Heart rate 114 /min Megan Grenfell PA-C Work Phone: [facility] 12-22-2023 14:44-0400 Respiratory rate 16 /min Megan Grenfell PA-C Work Phone: [facility] 12-22-2023 14:44-0400 Systolic blood pressure 108 mm[Hg] Megan Fatumanfell PA-C Work Phone: [facility] 10-24-2023 12:44-0400 Body mass index (BMI) [Ratio] 26.03 kg/m2 Barbara Merritt MD Work Phone: [facility] 10-24-2023 12:44-0400 Body temperature 98.4 [degF] Barbara Merritt MD Work Phone: [facility] 10-24-2023 12:44-0400 Body weight 75.4 kg Barbara Merritt MD Work Phone: [facility] 10-24-2023 12:44-0400 Diastolic blood pressure 72 mm[Hg] Barbara Merritt MD Work Phone: [facility] 10-24-2023 12:44-0400 Heart rate 89 /min Barbara Merritt MD Work Phone: [facility] 10-24-2023 12:44-0400 Systolic blood pressure 117 mm[Hg] Barbara Merritt MD Work Phone: [facility] 10-16-2023 15:18-0400 Body mass index (BMI) [Ratio] 26.63 kg/m2 Marietriny Stevens [employer].STAFF RESEARCH SCIENTIST Work Phone: [facility] 10-16-2023 15:18-0400 Body weight 77.11 kg Marietriny Stevens [employer].STAFF RESEARCH SCIENTIST Work Phone: [facility] 10-16-2023 15:18-0400 Diastolic blood pressure 65 mm[Hg] Marie Jadynernardo [employer]ER [employer].STAFF RESEARCH SCIENTIST Work Phone: [facility] 10-16-2023 15:18-0400 Heart rate 90 /min Marie Rodney [employer]ER [employer].STAFF RESEARCH SCIENTIST Work Phone: [facility] 10-16-2023 15:18-0400 Systolic blood pressure 100 mm[Hg] Marie Dibernar [employer]ER [employer].STAFF RESEARCH SCIENTIST Work Phone: [facility] 09-25-2023 15:15-0400 Diastolic blood pressure 80 mm[Hg] Megan Grenfell PA-C Work Phone: [facility] 09-25-2023 15:15-0400 Heart rate 84 /min Megan Zepedacherryell PA-C Work Phone: [facility] 09-25-2023 15:15-0400 Respiratory rate 14 /min Megan Zepedacherryell PA-C Work Phone: [facility] 09-25-2023 15:15-0400 Systolic blood pressure 122 mm[Hg] Megan Zepedacherryell PA-C Work Phone: [facility] 08-03-2023 11:08-0500 Body height 170.2 cm Kelvin Shelton APRN.STAFF RESEARCH SCIENTIST Work Phone: [facility] 08-03-2023 11:08-0500 Body weight 70.31 kg Kelvin Shelton APRN.STAFF RESEARCH SCIENTIST Work Phone: [facility] 08-03-2023 11:08-0500 Diastolic blood pressure 70 mm[Hg] Kelvin Shelton APRN.STAFF RESEARCH SCIENTIST Work Phone: [facility] 08-03-2023 11:08-0500 Heart rate 67 /min Kelvin Shelton APRN.STAFF RESEARCH SCIENTIST Work Phone: [facility] 08-03-2023 11:08-0500 SaO2% (BldA) [Mass fraction] 99 % Kelvin Shelton APRN.STAFF RESEARCH SCIENTIST Work Phone: [facility] 08-03-2023 11:08-0500 Systolic blood pressure 110 mm[Hg] Kelvin Shelton APRN.STAFF RESEARCH SCIENTIST Work Phone: [facility] 08-01-2023 13:09-0500 Body height 170 cm Noa Munozman DO Work Phone: [facility] 08-01-2023 13:09-0500 Body temperature 98.2 [degF] Noa Munozman DO Work Phone: [facility] 08-01-2023 13:09-0500 Body weight 74.1 kg Noa Munozman DO Work Phone: [facility] 08-01-2023 13:09-0500 Diastolic blood pressure 78 mm[Hg] Noa Munozman DO Work Phone: [facility] 08-01-2023 13:09-0500 Heart rate 76 /min Noa Munozman DO Work Phone: [facility] 08-01-2023 13:09-0500 SaO2% (BldA) [Mass fraction] 98 % Noa Munozman DO Work Phone: [facility] 08-01-2023 13:09-0500 Systolic blood pressure 110 mm[Hg] Noa Munozman DO Work Phone: [facility] 07-31-2023 09:00-0500 Diastolic blood pressure 62 mm[Hg] Eneida Morales PT, DPT Work Phone: [facility] 07-31-2023 09:00-0500 Systolic blood pressure 102 mm[Hg] Eneida Morales PT, DPT Work Phone: [facility] 07-27-2023 09:19-0500 Body height 170.2 cm Jay Phillips MD Work Phone: [facility] 07-27-2023 09:19-0500 Body weight 73.48 kg Jay Phillips MD Work Phone: [facility] 07-27-2023 09:19-0500 SaO2% (BldA) [Mass fraction] 100 % Jay Phillips MD Work Phone: [facility] 02-02-2023 13:08-0400 Body height 170.2 cm Karel Caceres MD Work Phone: [facility] 02-02-2023 13:08-0400 Body weight 81.65 kg Karel Caceres MD Work Phone: [facility] 02-02-2023 13:08-0400 Diastolic blood pressure 71 mm[Hg] Karel Caceres MD Work Phone: [facility] 02-02-2023 13:08-0400 Heart rate 98 /min Karel Caceres MD Work Phone: [facility] 02-02-2023 13:08-0400 SaO2% (BldA) [Mass fraction] 99 % Karel Caceres MD Work Phone: [facility] 02-02-2023 13:08-0400 Systolic blood pressure 119 mm[Hg] Karel Caceres MD Work Phone: [facility] 12-21-2022 09:24-0400 Diastolic blood pressure 86 mm[Hg] Rubin Verde MD Work Phone: [facility] 12-21-2022 09:24-0400 Heart rate 87 /min Rubin Verde MD Work Phone: [facility] 12-21-2022 09:24-0400 SaO2% (BldA) [Mass fraction] 97 % Rubin Verde MD Work Phone: [facility] 12-21-2022 09:24-0400 Systolic blood pressure 124 mm[Hg] Rubin Verde MD Work Phone: [facility] 12-15-2022 11:19-0400 Body height 170.2 cm Kelvinkely WoodsCatrichard DOMINGON.STAFF RESEARCH SCIENTIST Work Phone: [facility] 12-15-2022 11:19-0400 Body weight 83.64 kg Kelvin Catrichard DOMINGON.STAFF RESEARCH SCIENTIST Work Phone: [facility] 12-15-2022 11:19-0400 Diastolic blood pressure 81 mm[Hg] Kelvin Shelton TE[employer]ER [employer].STAFF RESEARCH SCIENTIST Work Phone: [facility] 12-15-2022 11:19-0400 Heart rate 85 /min Kelvin Shelton TE[employer]ER [employer].STAFF RESEARCH SCIENTIST Work Phone: [facility] 12-15-2022 11:19-0400 SaO2% (BldA) [Mass fraction] 100 % Kelvin Shelton TE[employer]ER [employer].STAFF RESEARCH SCIENTIST Work Phone: [facility] 12-15-2022 11:19-0400 Systolic blood pressure 123 mm[Hg] Kelvin Shelton TE[employer]ER [employer].STAFF RESEARCH SCIENTIST Work Phone: [facility] 10-17-2022 12:00-0400 Diastolic blood pressure 132 mm[Hg] Jennifer Godfrey DO Work Phone: [facility] 10-17-2022 12:00-0400 Heart rate 115 /min Jennifer Godfrey DO Work Phone: [facility] 10-17-2022 12:00-0400 SaO2% (BldA) [Mass fraction] 95 % Jennifer Godfrey DO Work Phone: [facility] 10-17-2022 12:00-0400 Systolic blood pressure 162 mm[Hg] Jennifer Godfrey DO Work Phone: [facility] 10-17-2022 11:59-0400 Body height 170.2 cm Jennifer Godfrey DO Work Phone: [facility] 10-17-2022 11:59-0400 Body mass index (BMI) [Ratio] 28.66 kg/m2 Jennifer Godfrey DO Work Phone: [facility] 10-17-2022 11:59-0400 Body temperature 99.39 [degF] Jennifer Godfrey DO Work Phone: [facility] 10-17-2022 11:59-0400 Body weight 83.01 kg Jennifer Godfrey DO Work Phone: [facility] 10-17-2022 11:59-0400 Respiratory rate 20 /min Jennifer Godfrey DO Work Phone: [facility] 10-14-2022 10:59-0400 Body height 170.2 cm Etienne Vinson MD Work Phone: [facility] 10-14-2022 10:59-0400 Body weight 79.38 kg Etienne Vinson MD Work Phone: [facility] 10-14-2022 10:59-0400 Diastolic blood pressure 68 mm[Hg] Etienne Vinson MD Work Phone: [facility] 10-14-2022 10:59-0400 Heart rate 83 /min Etienne Vinson MD Work Phone: [facility] 10-14-2022 10:59-0400 SaO2% (BldA) [Mass fraction] 99 % Etienne Vinson MD Work Phone: [facility] 10-14-2022 10:59-0400 Systolic blood pressure 123 mm[Hg] Etienne Vinson MD Work Phone: [facility] 10-04-2022 17:09-0400 Body weight 81.19 kg Jeremy Madrid MD Work Phone: [facility] 10-04-2022 17:09-0400 Diastolic blood pressure 70 mm[Hg] Jeremy Madrid MD Work Phone: [facility] 10-04-2022 17:09-0400 Systolic blood pressure 121 mm[Hg] Jeremy Madrid MD Work Phone: [facility] 10-01-2022 11:07-0400 Body height 170.2 cm Elsi LIN-C Work Phone: [facility] 10-01-2022 11:07-0400 Body mass index (BMI) [Ratio] 28.66 kg/m2 Elsi Lucas PA-C Work Phone: [facility] 10-01-2022 11:07-0400 Body temperature 98.8 [degF] Elsi Lucas PA-C Work Phone: [facility] 10-01-2022 11:07-0400 Body weight 83.01 kg Elsi Lucas PA-C Work Phone: [facility] 10-01-2022 11:07-0400 Diastolic blood pressure 79 mm[Hg] Elsi Lucas PA-C Work Phone: [facility] 10-01-2022 11:07-0400 Heart rate 81 /min Elsi Lucas PA-C Work Phone: [facility] 10-01-2022 11:07-0400 Systolic blood pressure 117 mm[Hg] Elsi Lucas PA-C Work Phone: [facility] 09-05-2022 14:15-0400 Body height 170.2 cm Cisco Garcia MD Work Phone: [facility] 09-05-2022 14:15-0400 Body mass index (BMI) [Ratio] 28.22 kg/m2 Cisco Garcia MD Work Phone: [facility] 09-05-2022 14:15-0400 Body temperature 97.5 [degF] Cisco Garcia MD Work Phone: [facility] 09-05-2022 14:15-0400 Body weight 81.74 kg Cisco Garcia MD Work Phone: [facility] 09-05-2022 14:15-0400 Diastolic blood pressure 87 mm[Hg] Cisco Garcia MD Work Phone: [facility] 09-05-2022 14:15-0400 Heart rate 95 /min Cisco Garcia MD Work Phone: [facility] 09-05-2022 14:15-0400 SaO2% (BldA) [Mass fraction] 95 % Cisco Garcia MD Work Phone: [facility] Comment on above: Room air 09-05-2022 14:15-0400 Systolic blood pressure 119 mm[Hg] Cisco Garcia MD Work Phone: [facility] 09-02-2022 13:42-0400 Body height 170.2 cm Elsi Lucas PA-C Work Phone: [facility] 09-02-2022 13:42-0400 Body mass index (BMI) [Ratio] 28.19 kg/m2 Elsi Lucas PA-C Work Phone: [facility] 09-02-2022 13:42-0400 Body temperature 97.81 [degF] Elsi Sanchesramm PA-C Work Phone: [facility] 09-02-2022 13:42-0400 Body weight 81.65 kg Elsi Sanchesramm PA-C Work Phone: [facility] 09-02-2022 13:42-0400 Diastolic blood pressure 78 mm[Hg] Elsi Sanchesramm PA-C Work Phone: [facility] 09-02-2022 13:42-0400 Heart rate 111 /min Elsi Sanchesramm PA-C Work Phone: [facility] 09-02-2022 13:42-0400 Systolic blood pressure 139 mm[Hg] Elsi Sanchesramm PA-C Work Phone: [facility] 08-15-2022 09:41-0500 Body height 170.2 cm Elsi Crystalm PA-C Work Phone: [facility] 08-15-2022 09:41-0500 Body mass index (BMI) [Ratio] 27.88 kg/m2 Elsi Sanchesramm PA-C Work Phone: [facility] 08-15-2022 09:41-0500 Body weight 80.74 kg Elsi Sanchesramm PA-C Work Phone: [facility] 08-10-2022 13:47-0500 Diastolic blood pressure 70 mm[Hg] Mark Poe PAGE TECHNICIAN Work Phone: [facility] 08-10-2022 13:47-0500 Heart rate 66 /min Mark Poe PAGE TECHNICIAN Work Phone: [facility] 08-10-2022 13:47-0500 Respiratory rate 17 /min Mark Poe PAGE TECHNICIAN Work Phone: [facility] 08-10-2022 13:47-0500 SaO2% (BldA) [Mass fraction] 100 % Mark Poe PAGE TECHNICIAN Work Phone: [facility] 08-10-2022 13:47-0500 Systolic blood pressure 154 mm[Hg] Mark Poe PAGE TECHNICIAN Work Phone: [facility] 08-10-2022 11:44-0500 Body height 170.2 cm Mark Poe PAGE TECHNICIAN Work Phone: [facility] 08-10-2022 11:43-0500 Body temperature 98.29 [degF] Mark Poe PAGE TECHNICIAN Work Phone: [facility] 08-05-2022 10:14-0500 Body height 170.2 cm Mark Poe STAFF RESEARCH SCIENTIST Work Phone: [facility] 08-05-2022 10:14-0500 Body mass index (BMI) [Ratio] 28.04 kg/m2 Mark Poe STAFF RESEARCH SCIENTIST Work Phone: [facility] 08-05-2022 10:14-0500 Body temperature 98.8 [degF] Mark Poe STAFF RESEARCH SCIENTIST Work Phone: [facility] 08-05-2022 10:14-0500 Body weight 81.19 kg Mark Poe STAFF RESEARCH SCIENTIST Work Phone: [facility] 08-05-2022 10:14-0500 Diastolic blood pressure 87 mm[Hg] Mark Poe STAFF RESEARCH SCIENTIST Work Phone: [facility] 08-05-2022 10:14-0500 Heart rate 80 /min Mark Poe STAFF RESEARCH SCIENTIST Work Phone: [facility] 08-05-2022 10:14-0500 Systolic blood pressure 123 mm[Hg] Mark Poe STAFF RESEARCH SCIENTIST Work Phone: [facility] 08-04-2022 15:00-0500 Body height 170.2 cm Raul Truong DO Work Phone: [facility] 08-04-2022 15:00-0500 Body weight 81.19 kg Raul Truong DO Work Phone: [facility] 08-04-2022 15:00-0500 Diastolic blood pressure 70 mm[Hg] Raul Truong DO Work Phone: [facility] 08-04-2022 15:00-0500 Heart rate 84 /min Raul Truong DO Work Phone: [facility] 08-04-2022 15:00-0500 SaO2% (BldA) [Mass fraction] 97 % Raul Truong DO Work Phone: [facility] 08-04-2022 15:00-0500 Systolic blood pressure 121 mm[Hg] Raul Truong DO Work Phone: [facility] 07-29-2022 13:00-0500 Diastolic blood pressure 82 mm[Hg] [address] 07-29-2022 13:00-0500 Heart rate 58 /min [address] 07-29-2022 13:00-0500 Respiratory rate 16 /min [address] 07-29-2022 13:00-0500 SaO2% (BldA) [Mass fraction] 99 % [address] 07-29-2022 13:00-0500 Systolic blood pressure 113 mm[Hg] [address] 07-29-2022 12:55-0500 Body temperature 97.9 [degF] [address] 07-29-2022 11:49-0500 Body height 170.[address] 07-29-2022 11:49-0500 Body mass index (BMI) [Ratio] 28.57 kg/m2 [address] 07-29-2022 11:49-0500 Body weight 82.[address] 07-28-2022 09:17-0500 Body height 170.2 cm Mark Poe STAFF RESEARCH SCIENTIST Work Phone: [facility] 07-28-2022 09:17-0500 Body mass index (BMI) [Ratio] 28.66 kg/m2 Mark Poe STAFF RESEARCH SCIENTIST Work Phone: [facility] 07-28-2022 09:17-0500 Body temperature 97.7 [degF] Mark Poe STAFF RESEARCH SCIENTIST Work Phone: [facility] 07-28-2022 09:17-0500 Body weight 83.01 kg Mark Poe STAFF RESEARCH SCIENTIST Work Phone: [facility] 07-28-2022 09:17-0500 Diastolic blood pressure 68 mm[Hg] Mark Poe STAFF RESEARCH SCIENTIST Work Phone: [facility] 07-28-2022 09:17-0500 Heart rate 79 /min Mark Poe STAFF RESEARCH SCIENTIST Work Phone: [facility] 07-28-2022 09:17-0500 Systolic blood pressure 105 mm[Hg] Mark Poe STAFF RESEARCH SCIENTIST Work Phone: [facility] 07-20-2022 08:31-0500 Body height 170.2 cm Mark Poe STAFF RESEARCH SCIENTIST Work Phone: [facility] 07-20-2022 08:31-0500 Body mass index (BMI) [Ratio] 28.51 kg/m2 Mark Poe STAFF RESEARCH SCIENTIST Work Phone: [facility] 07-20-2022 08:31-0500 Body temperature 98.8 [degF] Mark Poe STAFF RESEARCH SCIENTIST Work Phone: [facility] 07-20-2022 08:31-0500 Body weight 82.56 kg Mark Poe STAFF RESEARCH SCIENTIST Work Phone: [facility] 07-20-2022 08:31-0500 Diastolic blood pressure 77 mm[Hg] Mark Poe STAFF RESEARCH SCIENTIST Work Phone: [facility] 07-20-2022 08:31-0500 Heart rate 112 /min Mark Poe STAFF RESEARCH SCIENTIST Work Phone: [facility] 07-20-2022 08:31-0500 Systolic blood pressure 134 mm[Hg] Mark Poe STAFF RESEARCH SCIENTIST Work Phone: [facility] 07-01-2022 09:57-0500 Body height 170.2 cm Kelvin Shelton APRN.STAFF RESEARCH SCIENTIST Work Phone: [facility] 07-01-2022 09:57-0500 Body weight 80.29 kg Kelvin Shelton APRN.STAFF RESEARCH SCIENTIST Work Phone: [facility] 07-01-2022 09:57-0500 Diastolic blood pressure 60 mm[Hg] Kelvin Shelton [employer].STAFF RESEARCH SCIENTIST Work Phone: [facility] 07-01-2022 09:57-0500 Heart rate 85 /min Kelvin Shelton [employer].STAFF RESEARCH SCIENTIST Work Phone: [facility] 07-01-2022 09:57-0500 SaO2% (BldA) [Mass fraction] 96 % Kelvin Shelton [employer].STAFF RESEARCH SCIENTIST Work Phone: [facility] 07-01-2022 09:57-0500 Systolic blood pressure 127 mm[Hg] Kelvin Shelton [employer].STAFF RESEARCH SCIENTIST Work Phone: [facility] 06-15-2022 14:21-0500 Body height 170.2 cm Etienne Vinson MD Work Phone: [facility] 06-15-2022 14:21-0500 Body weight 83.46 kg Etienne Vinson MD Work Phone: [facility] 06-15-2022 14:21-0500 Diastolic blood pressure 72 mm[Hg] Etienne Vinson MD Work Phone: [facility] 06-15-2022 14:21-0500 Heart rate 80 /min Etienne Vinson MD Work Phone: [facility] 06-15-2022 14:21-0500 SaO2% (BldA) [Mass fraction] 99 % Etienne Vinson MD Work Phone: [facility] 06-15-2022 14:21-0500 Systolic blood pressure 124 mm[Hg] Etienne Vinson MD Work Phone: [facility] 05-26-2022 15:21-0500 Body height 170.2 cm Raul Truong DO Work Phone: [facility] 05-26-2022 15:21-0500 Body weight 79.38 kg Raul Truong DO Work Phone: [facility] 05-26-2022 15:21-0500 Diastolic blood pressure 82 mm[Hg] Raul Truong DO Work Phone: [facility] 05-26-2022 15:21-0500 Heart rate 101 /min Raul Truong DO Work Phone: [facility] 05-26-2022 15:21-0500 Respiratory rate 16 /min Raul Truong DO Work Phone: [facility] 05-26-2022 15:21-0500 SaO2% (BldA) [Mass fraction] 97 % Raul Truong DO Work Phone: [facility] 05-26-2022 15:21-0500 Systolic blood pressure 127 mm[Hg] Raul Truong DO Work Phone: [facility] 05-02-2022 09:55-0500 Body height 170.2 cm Harish Horava DO Work Phone: [facility] 05-02-2022 09:55-0500 Body mass index (BMI) [Ratio] 27.72 kg/m2 Harish Horava DO Work Phone: [facility] 05-02-2022 09:55-0500 Body temperature 98.29 [degF] Harish Horava DO Work Phone: [facility] 05-02-2022 09:55-0500 Body weight 80.29 kg Harish Horava DO Work Phone: [facility] 05-02-2022 09:55-0500 Diastolic blood pressure 81 mm[Hg] Harish Horava DO Work Phone: [facility] 05-02-2022 09:55-0500 Heart rate 78 /min Harish Horava DO Work Phone: [facility] 05-02-2022 09:55-0500 SaO2% (BldA) [Mass fraction] 97 % Harish Horava DO Work Phone: [facility] 05-02-2022 09:55-0500 Systolic blood pressure 122 mm[Hg] Harish Horava DO Work Phone: [facility] 04-25-2022 07:14-0500 Body height 170.2 cm Etienne Vinson MD Work Phone: [facility] 04-25-2022 07:14-0500 Body weight 77.11 kg Etienne Vinson MD Work Phone: [facility] 04-25-2022 07:14-0500 Diastolic blood pressure 75 mm[Hg] Etienne Vinson MD Work Phone: [facility] 04-25-2022 07:14-0500 Heart rate 105 /min Eteinne Vinson MD Work Phone: [facility] 04-25-2022 07:14-0500 SaO2% (BldA) [Mass fraction] 100 % Etienne Vinson MD Work Phone: [facility] 04-25-2022 07:14-0500 Systolic blood pressure 127 mm[Hg] Etienne Vinson MD Work Phone: [facility] 03-09-2022 11:05-0400 Diastolic blood pressure 82 mm[Hg] Nolberto Perez MD Work Phone: [facility] 03-09-2022 11:05-0400 Heart rate 80 /min Nolberto Perez MD Work Phone: [facility] 03-09-2022 11:05-0400 Respiratory rate 14 /min Nolberto Perez MD Work Phone: [facility] 03-09-2022 11:05-0400 Systolic blood pressure 131 mm[Hg] Nolberto Perez MD Work Phone: [facility] 02-28-2022 11:49-0400 Body temperature 97.7 [degF] Priscila Carranza MD Work Phone: [facility] 02-28-2022 11:49-0400 Diastolic blood pressure 86 mm[Hg] Priscila Carranza MD Work Phone: [facility] 02-28-2022 11:49-0400 Heart rate 64 /min Priscila Carranza MD Work Phone: [facility] 02-28-2022 11:49-0400 Respiratory rate 16 /min Priscila Carranza MD Work Phone: [facility] 02-28-2022 11:49-0400 SaO2% (BldA) [Mass fraction] 99 % Priscila Carranza MD Work Phone: [facility] 02-28-2022 11:49-0400 Systolic blood pressure 121 mm[Hg] Priscila Carranza MD Work Phone: [facility] 02-27-2022 21:00-0400 Body height 170.2 cm Priscila Carranza MD Work Phone: [facility] 02-27-2022 21:00-0400 Body mass index (BMI) [Ratio] 27.25 kg/m2 Priscila Carranza MD Work Phone: [facility] 02-27-2022 21:00-0400 Body weight 78.93 kg Priscila Carranza MD Work Phone: [facility] 02-21-2022 11:04-0400 Body height 170.2 cm Nolberto Perez MD Work Phone: [facility] 02-21-2022 11:04-0400 Body mass index (BMI) [Ratio] 27.25 kg/m2 Nolberto Perez MD Work Phone: [facility] 02-21-2022 11:04-0400 Body weight 78.93 kg Nolberto Perez MD Work Phone: [facility] 02-21-2022 11:04-0400 Diastolic blood pressure 86 mm[Hg] Nolberto Perez MD Work Phone: [facility] 02-21-2022 11:04-0400 Heart rate 72 /min Nolberto Perez MD Work Phone: [facility] 02-21-2022 11:04-0400 SaO2% (BldA) [Mass fraction] 98 % Nolberto Perez MD Work Phone: [facility] 02-21-2022 11:04-0400 Systolic blood pressure 149 mm[Hg] Nolberto Perez MD Work Phone: [facility] 02-18-2022 07:34-0400 Body height 170.2 cm Wero Reckner PA-C Work Phone: [facility] 02-18-2022 07:34-0400 Body mass index (BMI) [Ratio] 27.25 kg/m2 Wero Reckner PA-C Work Phone: [facility] 02-18-2022 07:34-0400 Body temperature 97.3 [degF] Wero Reckner PA-C Work Phone: [facility] 02-18-2022 07:34-0400 Body weight 78.93 kg Wero Reckner PA-C Work Phone: [facility] 02-18-2022 07:34-0400 Diastolic blood pressure 85 mm[Hg] Wero Reckner PA-C Work Phone: [facility] 02-18-2022 07:34-0400 Heart rate 75 /min Wero Reckner PA-C Work Phone: [facility] 02-18-2022 07:34-0400 SaO2% (BldA) [Mass fraction] 98 % Wero Reckner PA-C Work Phone: [facility] 02-18-2022 07:34-0400 Systolic blood pressure 128 mm[Hg] Wero Reckner PA-C Work Phone: [facility] 06-14-2021 10:33-0500 Body height 165.1 cm Harish Horava DO Work Phone: [facility] 06-14-2021 10:33-0500 Body mass index (BMI) [Ratio] 29.89 kg/m2 Harish Horava DO Work Phone: [facility] 06-14-2021 10:33-0500 Body temperature 97.7 [degF] Harish Horava DO Work Phone: [facility] 06-14-2021 10:33-0500 Body weight 81.47 kg Harish Horava DO Work Phone: [facility] 06-14-2021 10:33-0500 Diastolic blood pressure 71 mm[Hg] Harish Horava DO Work Phone: [facility] 06-14-2021 10:33-0500 Heart rate 63 /min Harish Horava DO Work Phone: [facility] 06-14-2021 10:33-0500 SaO2% (BldA) [Mass fraction] 95 % Harish Horava DO Work Phone: [facility] 06-14-2021 10:33-0500 Systolic blood pressure 108 mm[Hg] Harish Horava DO Work Phone: [facility] 11-20-2020 04:32-0400 Diastolic blood pressure 67 mm[Hg] Jaja Truong [employer] - CNM Work Phone: [facility] Work Phone: 11-20-2020 04:32-0400 Heart rate 74 /min Jaja Truong [employer] - CNM Work Phone: [facility] Work Phone: 11-20-2020 04:32-0400 Respiratory rate 16 /min Jaja Truong [employer] - CNM Work Phone: [facility] Work Phone: 11-20-2020 04:32-0400 Systolic blood pressure 122 mm[Hg] Jaja Truong [employer] - CNM Work Phone: [facility] Work Phone: 11-20-2020 02:27-0400 Body height 170.2 cm Jaja Truong APRN - CNM Work Phone: [facility] Work Phone: 11-20-2020 02:27-0400 Body mass index (BMI) [Ratio] 30.85 kg/m2 Jaja Truong APRN - CNM Work Phone: [facility] Work Phone: 11-20-2020 02:27-0400 Body weight 89.36 kg Jaja Truong APRN - CNM Work Phone: [facility] Work Phone: 11-20-2020 01:55-0400 Body temperature 98.6 [degF] Jaja Truong APRN - CNM Work Phone: [facility] Work Phone: 11-18-2020 02:28-0400 Body temperature 98.01 [degF] Jaja Truong APRN - CNM Work Phone: [facility] Work Phone: 11-18-2020 02:28-0400 Diastolic blood pressure 70 mm[Hg] Jaja Truong APRN - CNM Work Phone: [facility] Work Phone: 11-18-2020 02:28-0400 Heart rate 67 /min Jaja Truong APRN - CNM Work Phone: [facility] Work Phone: 11-18-2020 02:28-0400 Respiratory rate 16 /min Jaja Truong APRN - CNM Work Phone: [facility] Work Phone: 11-18-2020 02:28-0400 Systolic blood pressure 120 mm[Hg] Jaja Truong APRN - CNM Work Phone: [facility] Work Phone: 10-30-2020 20:32-0400 Body height 165.1 cm Elisabeth Myke DO Work Phone: [facility] 10-30-2020 20:32-0400 Body mass index (BMI) [Ratio] 29.12 kg/m2 Elisabeth Galvinp DO Work Phone: [facility] 10-30-2020 20:32-0400 Body temperature 98.71 [degF] Elisabeth Myke DO Work Phone: [facility] 10-30-2020 20:32-0400 Body weight 79.38 kg Elisabeth Myke DO Work Phone: [facility] 10-30-2020 20:32-0400 Diastolic blood pressure 62 mm[Hg] Elisabeth Myke DO Work Phone: [facility] 10-30-2020 20:32-0400 Heart rate 87 /min Elisabeth Myke DO Work Phone: [facility] 10-30-2020 20:32-0400 Respiratory rate 18 /min Elisabeth Myke DO Work Phone: [facility] 10-30-2020 20:32-0400 SaO2% (BldA) [Mass fraction] 100 % Elisabeth Myke DO Work Phone: [facility] 10-30-2020 20:32-0400 Systolic blood pressure 114 mm[Hg] Elisabeth Myke DO Work Phone: [facility] 09-08-2020 10:07-0400 BMI (Body Mass Index) 29.15 kg/m2 [facility] 09-08-2020 10:07-0400 Body Temperature 98.29 [degF] [facility] 09-08-2020 10:07-0400 Body weight 80.[address] [facility] 09-08-2020 10:07-0400 BP Diastolic 70 mm[Hg] [facility] 09-08-2020 10:07-0400 BP Systolic 103 mm[Hg] [facility] 09-08-2020 10:07-[address] [facility] 09-08-2020 10:07-0400 Pulse (Heart Rate) 76 /min [facility] 09-08-2020 10:07-0400 Pulse Oximetry 99 % [facility] 08-28-2020 18:18-0400 BP Diastolic 77 mm[Hg] [facility] 08-28-2020 18:18-0400 BP Systolic 112 mm[Hg] [facility] 08-28-2020 18:18-0400 Pulse (Heart Rate) 82 /min [facility] 08-28-2020 18:18-0400 Pulse Oximetry 100 % [facility] 08-28-2020 18:18-0400 Respiratory Rate 20 /min [facility] 08-28-2020 17:15-0400 BMI (Body Mass Index) 27.41 kg/m2 [facility] 08-28-2020 17:15-0400 Body Temperature 99.39 [degF] [facility] 08-28-2020 17:15-0400 Body weight 79.38 kg [facility] 08-28-2020 17:15-0400 Height 170.2 cm [facility] 07-14-2020 15:45-0500 BP Diastolic 66 mm[Hg] [facility] [place] 07-14-2020 15:45-0500 BP Systolic 120 mm[Hg] [facility] [place] 07-14-2020 15:45-0500 Pulse (Heart Rate) 62 /min [facility] [place] 07-14-2020 15:45-0500 Respiratory Rate 23 /min [facility], [place] 07-14-2020 15:30-0500 Pulse Oximetry 100 % [facility] [place] 07-14-2020 11:44-0500 BMI (Body Mass Index) 25.53 kg/m2 [facility] [place] 07-14-2020 11:44-0500 Body Temperature 98.01 [degF] [facility] [place] 07-14-2020 11:44-0500 Body weight 73.94 kg [facility] [place] 05-23-2020 12:57-0500 BMI (Body Mass Index) 23.49 kg/m2 [facility] [place] [facility]2020 12:57-0500 Body weight 68.04 kg Preston Ema [facility] , [place] 05-23-2020 12:57-0500 BP Diastolic 59 mm[Hg] Preston Ema [facility] , [place] 05-23-2020 12:57-0500 BP Systolic 115 mm[Hg] [facility] [place] [facility]-2020 12:57-0500 Height 170.2 cm Preston Ema [facility] , [place] 05-23-2020 12:57-0500 Pulse (Heart Rate) 71 /min Preston Ema [facility], [place] 05-23-2020 12:57-0500 Pulse Oximetry 100 % Preston Ema [facility] , [place] 05-23-2020 12:57-0500 Respiratory Rate 16 /min [facility] [place] 05-20-2020 15:40-0500 Body Temperature 98.91 [degF] [facility] [place] 05-20-2020 15:40-0500 BP Diastolic 64 mm[Hg] [facility] , [place] 05-20-2020 15:40-0500 BP Systolic 116 mm[Hg] [facility] , [place] 05-20-2020 15:40-0500 Pulse (Heart Rate) 68 /min [facility], [place] 05-20-2020 15:40-0500 Pulse Oximetry 100 % [facility] , [place] 05-20-2020 15:40-0500 Respiratory Rate 20 /min [facility] [place] 12-30-2019 08:34-0400 BMI (Body Mass Index) 25.61 kg/m2 Harish Laava [facility] 12-30-2019 08:34-0400 Body Temperature 98.29 [degF] Harish Laava [facility] 12-30-2019 08:34-0400 Body weight 71.99 kg Harish Horava [facility] 12-30-2019 08:34-0400 BP Diastolic 72 mm[Hg] Harish Horava [facility] 12-30-2019 08:34-0400 BP Systolic 108 mm[Hg] Harish Horava [facility] 12-30-2019 08:34-0400 Height 167.6 cm Harish Garza [facility] 12-30-2019 08:34-0400 Pulse (Heart Rate) 67 /min Harish Garza [facility] 12-30-2019 08:34-0400 Pulse Oximetry 98 % Harish Garza [facility] 12-30-2019 08:34-0400 Respiratory Rate 16 /min Harish Garza [facility] Encounters Encounter Date Encounter Type Care Provider Facility Start: 03-08-2024 End: 03-08-2024 ambulatory Karel Caceres MD Work Phone: Neurology Comment on above: Question Start: 03-08-2024 End: 03-08-2024 Patient encounter procedure Kelvin Shelton APRN.CNP Work Phone: Neurology Comment on above: Muscle twitching (Pr imary Dx); Secondary adrenal insufficiency (HCC); Jerking; Palpitations Start: 03-07-2024 End: 03-07-2024 ambulatory JYOTI SIMMONS Facility:[facility] Start: 03-07-2024 End: 03-07-2024 [facility] Jyoti Simmons MD Work Phone: Gynecology Comment on above: Hormonal disorder (P rimary Dx); Dyspareunia, female; Menopausal and perimenopausal disorder Start: 03-06-2024 End: 03-07-2024 Social Work Carmelina ALLEN Work Phone: Neurology Comment on above: Arrived Start: 03-01-2024 End: 03-01-2024 ambulatory Megan Kern PA-C Work Phone: Neurology Comment on above: Paperwork Start: 03-01-2024 End: 03-01-2024 E-mail encounter from caregiver Megan Kern PA-C Work Phone: Neurology Start: 03-01-2024 End: 03-01-2024 Emergency department patient visit NOA GAUTHIER Facility:[facility] Start: 02-29-2024 End: 02-29-2024 ambulatory Noajanis Gauthier DO Work Phone: Internal Medicine [place] Comment on above: [place] flare Nurse Triage Call; John agostodache; Musculoskeletal Problem Start: 02-23-2024 End: 02-23-2024 ambulatory Chris Mccauley MD Work Phone: Kidney Medicine Comment on above: [place] Start: 02-19-2024 End: 02-19-2024 Telephone encounter Rubin Verde MD Work Phone: Neurological Scientologist Comment on above: FMD Scheduling Start: 02-15-2024 End: 02-15-2024 Patient encounter procedure Chris Mccauley MD Work Phone: Kidney Medicine Comment on above: POTS (postural ortho static tachycardia syndrome) (Primary Dx); Secondary adrenal insufficiency (HCC); Behcet's disease with multisystem involvement (HCC); Raynaud's disease without gangrene Start: 02-15-2024 End: 02-15-2024 ambulatory CHRIS MCCAULEY Facility:[facility] Start: 02-13-2024 End: 02-14-2024 ambulatory Noa Patrickmichelle CHAMBERLAIN Work Phone: Internal Medicine [place] Comment on above: Request for Zofran Start: 02-08-2024 End: 02-09-2024 Refill Farooq Mcgraw MD Work Phone: [facility] Comment on above: Refill Request Start: 02-07-2024 End: 02-07-2024 Refill Rubin Verde MD Work Phone: Neurological Scientologist Comment on above: Refill Request Start: 02-05-2024 End: 02-08-2024 ambulatory Farooq Mcgraw MD Work Phone: Endocrinology Comment on above: Secondary adrenal in sufficiency (HCC) (Primary Dx) [place] please help Start: 02-05-2024 End: 02-05-2024 Telemedicine consultation with patient Farooq Mcgraw MD Work Phone: Endocrinology Start: 01-29-2024 End: 01-29-2024 [facility] Peggy Gilmore APRN.CNP Work Phone: Neurological Scientologist Comment on above: Functional neurologi shanelle symptom disorder with mixed symptoms (Primary Dx) Start: 01-26-2024 End: 02-01-2024 ambulatory Barbara Merritt MD Work Phone: Rheumatology Comment on above: Behcets Start: 01-25-2024 ambulatory Noa kaur DO Work Phone: Internal [facility] [place] Comment on above: Complete metabolic + vit d Start: 01-24-2024 End: 01-24-2024 ambulatory Letty Be [employer].STAFF RESEARCH SCIENTIST Work Phone: Gastroenterology Comment on above: Constipation, unspec ified constipation type (Primary Dx); Chronic abdominal pain Start: 01-24-2024 End: 01-24-2024 Telemedicine consultation with patient Letty Be [employer].STAFF RESEARCH SCIENTIST Work Phone: Gastroenterology Start: 01-23-2024 End: 01-23-2024 ambulatory FAROOQ MCGRAW Facility:[facility] Start: 01-20-2024 ambulatory Farooq Mcgraw MD Work Phone: Endocrinology Comment on above: [place] Start: 01-18-2024 Telephone encounter Jovita reese RN Work Phone: [facility] Comment on above: Insurance Authorizat ion (PA for KAROL); A[employer]OLITAR[employer] Start: 01-17-2024 Telephone encounter Megan omer PA-C Work Phone: [facility] Comment on above: Medication Problem ( Emgality/) Start: 01-13-2024 ambulatory Megan LIN-Clinton Work Phone: Neurology Comment on above: Request Start: 01-10-2024 ambulatory Noa kaur DO Work Phone: Internal Medicine [place] Comment on above: Request Start: 01-05-2024 Refill Noa kaur DO Work Phone: Internal [facility] [place] Comment on above: Refill Request Start: 01-04-2024 End: 01-04-2024 Unlisted evaluation and management service Connie Dale MD Work Phone: Neurological Scientologist Comment on above: NO SHOW (Primary Dx) Start: 01-02-2024 Telephone encounter Jovita reese RN Work Phone: [facility] Comment on above: Insurance Authorizat ion; Nurtec 75MG dispersible tablets Start: 12-29-2023 End: 12-29-2023 Refill Megan Kern PA-C Work Phone: [facility] Delivery Comment on above: Refill Request Bilateral lumbar rad iculopathy (Primary Dx); Lumbar spondylosis Insurance Authorizat ion; Colchicine 0.6MG tablets Botox Start: 12-28-2023 Telephone encounter Megan omer PA-C Work Phone: Neurology Comment on above: Abstract Start: 12-27-2023 Telephone encounter Megan omer PA-C Work Phone: [facility] Comment on above: Medication Problem ( Ubrelvy) Start: 12-25-2023 Telephone encounter Noa Gauthier DO Work Phone: [facility] [place] Comment on above: Patient Question Start: 12-24-2023 ambulatory Noa Alexander vincent DO Work Phone: [facility] [place] Start: 12-24-2023 Patient encounter procedure Noa Disha DO Work Phone: [facility] Comment on above: [facility] Start: 12-22-2023 End: 12-22-2023 ambulatory MEGAN KERN Facility:[facility] Start: 12-22-2023 End: 12-22-2023 Patient encounter procedure Megan Kern PA-C Work Phone: Neurology Comment on above: Chronic migraine wit hout aura, intractable, without status migrainosus (Primary Dx); Migraine with aura and without status migrainosus, not intractable Start: 12-22-2023 End: 12-22-2023 ambulatory Noa Gauthier DO Work Phone: [facility] [place] Comment on above: Dyspareunia, female (Primary Dx); Rectal tenesmus; Abdominal cramping Buspirone Luis Armando Eltons Start: 12-22-2023 End: 12-22-2023 Telemedicine consultation with patient Noa Gauthier DO Work Phone: [facility] [place] Start: 12-15-2023 End: 12-15-2023 ambulatory ISSA HENRIQUEZ Facility:[facility] Start: 12-15-2023 End: 12-15-2023 Subsequent hospital visit by physician Main A21 2 Radiology Comment on above: Voiding dysfunction [N39.8] Start: 12-12-2023 End: 12-12-2023 ambulatory Farooq Mcgraw MD Work Phone: Endocrinology Comment on above: Low serum cortisol l evel (Primary Dx) Dermatology Start: 12-12-2023 End: 12-12-2023 Telemedicine consultation with patient Farooq Mcgraw MD Work Phone: Endocrinology Start: 12-09-2023 ambulatory Barbara Merritt MD Work Phone: Rheumatology Comment on above: Skin Start: 12-05-2023 Patient Msg Rubin Verde MD Work Phone: Neurological Scientologist Comment on above: Functional Movement Disorder referral Appointment Question FMD referral Start: 12-04-2023 End: 12-04-2023 ambulatory KELVIN PRATT Facility:[facility] Start: 12-04-2023 End: 12-04-2023 Office outpatient visit 40 minutes Rubin Verde MD Work Phone: Neurological Scientologist Comment on above: Chronic back pain, u nspecified back location, unspecified back pain laterality (Primary Dx); Abnormality of gait; Functional neurological symptom disorder with mixed symptoms Start: 11-29-2023 End: 11-29-2023 ambulatory Meet Landis PT Work Phone: [facility] Comment on above: Low back pain with b ilateral sciatica, unspecified back pain laterality, unspecified chronicity (Primary Dx); Abnormality of gait; Chronic back pain, unspecified back location, unspecified back pain laterality Start: 11-22-2023 ambulatory Kelvin Gallagher man TEACHER [employer].STAFF RESEARCH SCIENTIST Work Phone: Neurology Comment on above: Appt Start: 11-16-2023 Chart abstracting Actigraphy N eur (Hist) Neurology Start: 11-16-2023 End: 11-17-2023 ambulatory KELVIN PRATT Facility:[facility] Start: 11-15-2023 End: 11-15-2023 ambulatory QUINTON MCKEON [facility] Comment on above: Sleep recording Start: 11-08-2023 End: 11-08-2023 ambulatory ONA GAUTHIER Facility:[facility] Start: 11-08-2023 End: 11-08-2023 Patient encounter procedure Rubin Verde MD Work Phone: Neurological Scientologist Comment on above: No-show for appointm ent (Primary Dx) Start: 11-08-2023 End: 11-08-2023 Telemedicine consultation with patient Rubin Verde MD Work Phone: Neurological Scientologist Start: 11-02-2023 Telephone encounter Noa Gauthier DO Work Phone: [facility] [place] Comment on above: Patient Question Start: 10-26-2023 ambulatory Noa kaur DO Work Phone: [facility] [place] Comment on above: Skin Start: 10-26-2023 Patient [...] 10-23-2023 ambulatory Meet Landis PT Work Phone: [facility] Comment on above: Low back pain with b ilateral sciatica, unspecified back pain laterality, unspecified chronicity (Primary Dx); Abnormality of gait Start: 10-19-2023 Refill Barbara Merritt MD Work Phone: Rheumatology Comment on above: Refill Request Start: 10-17-2023 ambulatory Kelvin kaur APRN.STAFF RESEARCH SCIENTIST Work Phone: Neurology Comment on above: Qsart Gabapentin Refill Request Start: 10-16-2023 End: 10-16-2023 ambulatory Kelvin Shelton APRN.STAFF RESEARCH SCIENTIST Work Phone: Neurology Comment on above: Procedure Qsart Start: 10-16-2023 End: 10-16-2023 Patient encounter procedure Founder & Ceo Work Phone: [facility] Comment on above: Labile blood pressur e (Primary Dx) Palpitations (Primar y Dx); Transient autonomic symptoms Start: 10-15-2023 ambulatory Noa Alexander vincent DO Work Phone: Internal Medicine [place] Comment on above: Mouth Start: 10-10-2023 End: 10-10-2023 ambulatory CARRIE LEA Facility:[facility] Start: 10-10-2023 End: 10-10-2023 Patient encounter procedure Carrietheodore Sanabrialatha [employer]ACHER [employer].STAFF RESEARCH SCIENTIST Work Phone: Pain Management Comment on above: Lumbar spondylosis ( Primary Dx); S/P WHIT (total abdominal hysterectomy) Start: 10-09-2023 Telephone encounter Noa Gauthier DO Work Phone: [facility] [place] Comment on above: Patient Question Start: 10-04-2023 End: 10-04-2023 ambulatory Kelvin Shelton APRN.STAFF RESEARCH SCIENTIST Work Phone: Neurology Comment on above: Labile blood pressur e (Primary Dx); Hypotension, unspecified hypotension type Start: 10-04-2023 End: 10-04-2023 Telemedicine consultation with patient Kelvin Shelton APRN.STAFF RESEARCH SCIENTIST Work Phone: Neurology Start: 10-03-2023 ambulatory Barbara Merritt MD Work Phone: Rheumatology Comment on above: Diagnosis Start: 10-03-2023 Telephone encounter Noa Gauthier DO Work Phone: [facility] [place] Start: 10-02-2023 End: 10-02-2023 [facility] Start: 09-29-2023 End: 09-29-2023 ambulatory Peggy Gilmore SHAY.STAFF RESEARCH SCIENTIST Work Phone: Neurological Scientologist Comment on above: Weakness (Primary Dx ); Fasciculations; Abnormal involuntary movement; Blepharospasm Start: 09-29-2023 End: 09-29-2023 Telemedicine consultation with patient Peggy Gilmore SHAY.STAFF RESEARCH SCIENTIST Work Phone: [facility] Start: 09-27-2023 Telephone encounter Carrie jordan APRN.CNP Work Phone: Pain Management Comment on above: Appointment Start: 09-26-2023 ambulatory Carrie Lea APRN.STAFF RESEARCH SCIENTIST Work Phone: Pain Management Comment on above: visit Start: 09-26-2023 E-mail encounter fro m caregiver Carrie Lea APRN.STAFF RESEARCH SCIENTIST Work Phone: [facility] [facility] Start: 09-25-2023 End: 09-25-2023 ambulatory MEGAN KERN Facility:[facility] Start: 09-25-2023 End: 09-25-2023 Patient encounter procedure Megan Kern PA-C Work Phone: Neurology Comment on above: Chronic migraine wit hout aura, intractable, without status migrainosus (Primary Dx) Start: 09-23-2023 E-mail encounter fro m caregiver Jeremy Madrid MD Work Phone: [facility] [address] Start: 09-23-2023 Patient encounter procedure Jeremy Madrid MD Work Phone: Pain Management Comment on above: Appointment Request Start: 09-22-2023 Refill Noa kaur DO Work Phone: Internal Medicine [place] Comment on above: Refill Request Medication ? Start: 09-21-2023 Refill Noa kaur DO Work Phone: Internal [facility] [place] Comment on above: Refill Request Start: 09-18-2023 End: 09-18-2023 Telemedicine consultation with patient Noa Gauthier DO Work Phone: [facility] [address] Start: 09-18-2023 End: 09-18-2023 ambulatory Noa Gauthier DO Work Phone: [facility] [place] Comment on above: Lumbar spondylosis ( Primary Dx); Vitamin B12 deficiency Start: 09-16-2023 ambulatory Jeremy Greer Work Phone: Pain Management Comment on above: Back Start: 09-14-2023 Chart abstracting Chris Mccauley MD Work Phone: Kidney Medicine Comment on above: Abstract Start: 09-08-2023 End: 09-08-2023 Patient encounter procedure Noa Gauthier DO Work Phone: [facility] [place] Comment on above: APPOINTMENT CANCELLE D (Primary Dx) Start: 09-08-2023 End: 09-08-2023 Telemedicine consultation with patient Noa Gauthier DO Work Phone: [id number] Start: 09-06-2023 End: 09-06-2023 Telemedicine consultation with patient Kelvin Pratt TEACHER [employer]CHO[employer].STAFF RESEARCH SCIENTIST Work Phone: [facility] Start: 09-06-2023 End: 09-06-2023 ambulatory Kelvin Pratt TEACHER [employer]CHO[employer].STAFF RESEARCH SCIENTIST Work Phone: Sleep Disorders [facility] Comment on above: Excessive sleepiness (Primary Dx); Parasomnia, unspecified type; Hypersomnia; Chronic insomnia; Sleep paralysis; RLS (restless legs syndrome) Start: 09-04-2023 End: 09-04-2023 ambulatory Farooq Mcgraw MD Work Phone: Endocrinology Comment on above: Low serum cortisol l evel (Primary Dx) Start: 09-04-2023 End: 09-04-2023 Telemedicine consultation with patient Farooq Mcgraw MD Work Phone: [facility] Start: 09-01-2023 ambulatory Barbara Merritt MD Work Phone: Rheumatology Comment on above: Skin pictures Start: 08-31-2023 ambulatory Noa kaur DO Work Phone: Internal Medicine [place] Comment on above: Additional mouth Mouth Mouth sores Start: 08-21-2023 End: 08-21-2023 ambulatory NOA GAUTHIER Facility:[facility] Start: 08-21-2023 End: 08-21-2023 Patient encounter procedure Noa Gauthier DO Work Phone: Internal Medicine [place] Comment on above: APPOINTMENT CANCELLE D (Primary Dx) Start: 08-21-2023 End: 08-21-2023 Telemedicine consultation with patient Noa Gauthier DO Work Phone: [email or web address] Start: 08-16-2023 End: 08-16-2023 Telemedicine consultation with patient Noa Gauthier DO Work Phone: [id number] Start: 08-16-2023 End: 08-16-2023 ambulatory Noa Gauthier DO Work Phone: Internal Medicine [place] Comment on above: Labile blood pressur e (Primary Dx); POTS (postural orthostatic tachycardia syndrome); Transient autonomic symptoms Mouth sore example Start: 08-14-2023 ambulatory Kelvin Tommy kaur TEACHER [employer].STAFF RESEARCH SCIENTIST Work Phone: Neurology Comment on above: Labs Start: 08-14-2023 E-mail encounter fro m caregiver Kelvin Shelton APRN.STAFF RESEARCH SCIENTIST Work Phone: [facility] Start: 08-03-2023 End: 08-07-2023 Evaluation and management of inpatient NOA GAUTHIER Facility:[facility] Start: 08-03-2023 End: 08-03-2023 ambulatory Ashley Paige RN NURSE DIRECTOR OF STUDENT SERVICES Comment on above: Results, Lab Labs Start: 08-03-2023 E-mail encounter jeromy m caregiver Kelvin Sanders Cat DAY.STAFF RESEARCH SCIENTIST Work Phone: [facility] Start: 08-03-2023 Follow-up encounter Kelvin Sanders René franco APRN.STAFF RESEARCH SCIENTIST Work Phone: Neurology Comment on above: Follow up please jose luis greer Start: 08-03-2023 Telephone encounter Kelvin Tommy franco APRN.STAFF RESEARCH SCIENTIST Work Phone: Neurology Comment on above: Results Start: 08-03-2023 End: 08-03-2023 Patient encounter procedure Kelvin Sanders Cat DAY.STAFF RESEARCH SCIENTIST Work Phone: Neurology Comment on above: B12 deficiency (Prim mehran Dx); Paresthesia of skin; Hypotension, unspecified hypotension type; Labile blood pressure; Vasovagal syncope; Bradycardia; Muscle cramp; Disorder of the autonomic nervous system, unspecified Start: 08-02-2023 ambulatory Angeline (Rn) Robert BEAUCHAMP NURSE DIRECTOR OF STUDENT SERVICES Comment on above: Dizziness Start: 08-01-2023 End: 08-01-2023 ambulatory PHYSICIAN NO [facility] Start: 08-01-2023 End: 08-01-2023 Patient encounter procedure Noa Gauthier DO Work Phone: Internal Medicine [place] Comment on above: Labile blood pressur e [...] Start: 07-27-2023 End: 07-27-2023 ambulatory KAVITA GAMA Facility:[facility] Start: 07-26-2023 End: 07-26-2023 ambulatory Megan Kern PA-C Work Phone: Neurology Comment on above: Chronic migraine wit hout aura, intractable, without status migrainosus (Primary Dx); Migraine with aura and without status migrainosus, not intractable Start: 07-26-2023 End: 07-26-2023 Telemedicine consultation with patient Meganroxanne Zepedatonya HOWELL Work Phone: [facility] Start: 07-25-2023 ambulatory Kelvin kaur TEACHER PRESCHO[employer].STAFF RESEARCH SCIENTIST Work Phone: Neurology Comment on above: Blood pressure Start: 07-24-2023 End: 07-24-2023 ambulatory Nico Denney CCC-BUDGET RECORD CLERK Work Phone: [facility] Speech Therapy Comment on above: Dysphonia (Primary D x); Multiple neurological symptoms; Dysphagia, unspecified type Start: 07-20-2023 End: 07-20-2023 Subsequent hospital visit by physician Kavita Gama APRN - STAFF RESEARCH SCIENTIST Work Phone: [facility] Start: 07-20-2023 End: 07-20-2023 ambulatory Kelvin Shelton TEACHER [employer].STAFF RESEARCH SCIENTIST Work Phone: Neurology Comment on above: Symptoms Per Kelvin Shelton request for BP calibration Methocarbomol Start: 07-20-2023 Letter encounter Kelvin doss TEACHER [employer].STAFF RESEARCH SCIENTIST Work Phone: Neurology Comment on above: Letter from PCP Start: 07-17-2023 ambulatory Kelvin kaur TEACHER [employer].STAFF RESEARCH SCIENTIST Work Phone: Neurology Comment on above: High BP Start: 07-16-2023 ambulatory Kelvin kaur TEACHER [employer].STAFF RESEARCH SCIENTIST Work Phone: Neurology Comment on above: VITALS FOR 3 days tw ice a day Medical File informa tion Start: 07-13-2023 ambulatory Kelvin kaur TEACHER [employer].STAFF RESEARCH SCIENTIST Work Phone: Neurology Comment on above: BP readings Start: 07-10-2023 End: 07-10-2023 ambulatory KAVITA GAMA Facility:[facility] Start: 06-30-2023 End: 06-30-2023 ambulatory KAVITA GAMA Facility:[facility] Start: 06-27-2023 End: 06-27-2023 ambulatory MICHELLE OSORIO [facility] Start: 06-19-2023 End: 06-19-2023 ambulatory MEGAN KERN Facility:[facility] Start: 06-15-2023 End: 06-17-2023 ambulatory JAJA TRUONG [facility] Start: 06-15-2023 End: 06-17-2023 Subsequent hospital visit by physician Jaja Truong TEACHER [employer] - CNM Work Phone: [facility] Ultrasound Comment on above: Abdominal pain, unsp ecified abdominal location Start: 06-13-2023 End: 06-13-2023 ambulatory [facility] Facility:[facility] Start: 04-18-2023 End: 04-20-2023 ambulatory Rubin Verde MD Work Phone: Neurological Scientologist Comment on above: Chronic pain center Start: 03-31-2023 End: 03-31-2023 Emergency department patient visit DAMIEN LANDON M.D. Facility:[facility] Start: 03-30-2023 ambulatory Harish Estevez RN NURSE DIRECTOR OF STUDENT SERVICES Comment on above: back and tailbone pa in Start: 03-24-2023 End: 03-24-2023 ambulatory MOHINDER GARCIA [facility] Start: 02-28-2023 End: 02-28-2023 ambulatory Rubin Verde MD Work Phone: Neurological Scientologist Comment on above: Chronic back pain, u nspecified back location, unspecified back pain laterality (Primary Dx); Abnormal involuntary movement Start: 02-28-2023 End: 02-28-2023 Telemedicine consultation with patient Rubin Verde MD Work Phone: [facility] Start: 02-02-2023 End: 02-02-2023 Patient encounter procedure Karel Caceres MD Work Phone: Neurology Comment on above: [...] patient Rubin Verde MD Work Phone: [facility] Start: 01-25-2023 End: 01-25-2023 Subsequent hospital visit by physician Mri [facility] (I-Stat/1.5t) Work Phone: Radiology Comment on above: Spinal stenosis of c ervical region [M48.02] Hyperreflexia [R29.2 ] Start: 01-10-2023 End: 01-10-2023 ambulatory Emg 1000) Work Phone: Neurology Start: 01-10-2023 End: 01-10-2023 Patient encounter procedure Emg 2 Neur Main (Max Weight: 1000) Work Phone: [facility] Start: 01-04-2023 End: 01-04-2023 ambulatory Skin Biopsy Work Phone: Neurology Comment on above: Arrived Start: 01-04-2023 End: 01-04-2023 Patient encounter procedure Skin Biopsy Work Phone: [facility] Start: 12-28-2022 ambulatory Rubin Verde MD Work Phone: Neurological Scientologist Comment on above: Videos sent Start: 12-23-2022 ambulatory Megan flores PA-C Work Phone: Neurology Comment on above: Mri results Start: 12-22-2022 End: 12-23-2022 ambulatory PHYSICIAN [facility] Start: 12-21-2022 End: 12-21-2022 Patient encounter procedure Rubin Verde MD Work Phone: Neurological Scientologist Comment on above: Spinal stenosis of c ervical region (Primary Dx); Hyperreflexia; Fasciculations; Weakness; B12 deficiency; Neuropathy; Functional tremor; Vitamin B6 deficiency; Spinal stenosis of lumbar region, unspecified whether neurogenic claudication present Start: 12-15-2022 End: 12-15-2022 Patient encounter procedure Kelvin Shelton APRN.CNP Work Phone: Neurology Comment on above: Action tremor (Prima ry Dx); Orthostatic lightheadedness; Tachycardia; Disturbance of skin sensation; Degeneration of lumbar intervertebral disc Start: 12-12-2022 ambulatory Megan flores PA-C Work Phone: Neurology Comment on above: Emgality? Start: 11-25-2022 ambulatory HARISH LinAdelia LUCGERARD [facility] Ambulatory Start: 11-23-2022 End: 11-24-2022 ambulatory Shira Preciado PA-C Facility[facility] Start: 11-14-2022 End: 11-14-2022 Subsequent hospital visit by physician Kavita Hernandez CNP Work Phone: [facility] Comment on above: Behcet's disease (HC C) Start: 11-10-2022 End: 11-10-2022 Subsequent hospital visit by physician [facility] Tilt Table Study Room [facility] Stress Lab Comment on above: Palpitations; Lightheaded; Dizziness; Chest tightness; SOB (shortness of breath); Vision changes Start: 11-09-2022 ambulatory Kelvin kaur APRN.CNP Work Phone: Neurology Comment on above: Symptoms? Start: 11-05-2022 ambulatory Megan flores PA-C Work Phone: Neurology Comment on above: Ubrelvy / triptan Start: 10-19-2022 End: 10-19-2022 ambulatory Megan Kern PA-C Work Phone: Neurology Comment on above: Chronic migraine wit hout aura, intractable, without status migrainosus (Primary Dx); Migraine with aura and without status migrainosus, not intractable Start: 10-19-2022 End: 10-19-2022 Telemedicine consultation with patient Megan Kern PA-C Work Phone: [facility] Start: 10-17-2022 End: 10-17-2022 Emergency department patient visit Jennifer Godfrey DO Work Phone: [facility] ED Comment on above: Anxiety state (Prima [...] Jimenez ud, MD Work Phone: Internal Medicine [place] Comment on above: Patient Update (Pt e ntered (3)attachments of Outside MRI results that she would like to review please. Thank you. /) Start: 10-07-2022 ambulatory Etienne Vinson MD Work Phone: Neurology Comment on above: Mri Question Start: 10-05-2022 ambulatory Megan flores PA-C Work Phone: [facility] Start: 10-05-2022 Patient encounter procedure Megan Kern PA-C Work Phone: Neurology Comment on above: Appointment Start: 10-04-2022 End: 10-04-2022 ambulatory SOPHIE YOUNGER Facility:[facility] Start: 10-04-2022 E-mail encounter jeromy m caregiver [facility] Provider [facility] Start: 10-04-2022 End: 10-04-2022 Patient encounter procedure [...] End: 10-04-2022 Telemedicine consultation with patient Sophie BEARDSHAY Work Phone: [facility] Start: 10-04-2022 ambulatory [facility] Start: 10-03-2022 [facility] Start: 10-01-2022 End: 10-01-2022 ambulatory ELSI LUCAS [facility] Start: 10-01-2022 End: 10-01-2022 Office outpatient visit 15 minutes Elsi Lucas PA-C Work Phone: [facility] Comment on above: Vertigo (Primary Dx) ; Migraine with aura and without status migrainosus, not intractable; B12 deficiency Start: 09-30-2022 Orders Only Kelvin kaur TEACHER [employer]CHO[employer].STAFF RESEARCH SCIENTIST Work Phone: Neurology Comment on above: Scoliosis of lumbar spine, unspecified scoliosis type (Primary Dx); Lumbar herniated disc; Degeneration of lumbar intervertebral disc Start: 09-29-2022 End: 09-29-2022 Subsequent hospital visit by physician Martha Rogers(Istat/Lg Br/1.5t) Work Phone: Radiology Comment on above: Paresthesia of saddl e area [R20.2] Start: 09-28-2022 ambulatory Megan flores PA-C Work Phone: Neurology Comment on above: Possible migraine? Start: 09-27-2022 End: 10-01-2022 ambulatory KASHMIR BELTRAN JR. [facility] Start: 09-17-2022 ambulatory Barbara Merritt MD Work Phone: Rheumatology Comment on above: Eyes Start: 09-16-2022 End: 09-16-2022 Patient encounter procedure Barbara Merritt MD Work Phone: Rheumatology Comment on above: Recurrent aphthous s tomatitis (Primary Dx); Genital lesion, female; Fibromyalgia Start: 09-08-2022 Telephone encounter Megan omer PA-C Work Phone: Neurology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 POLYSOMNOGRAM (PSG) Start: 01-17-2024 End: 01-17-2024 ambulatory 01/17/2024 2:10 PM EDT [facility] Gastroenterology [address] [place] [address] Letty Be APRN.STAFF RESEARCH SCIENTIST [address] [place] [address] Rectal tenesmus [R19.8] Gastroenterology Comment on above: Rectal tenesmus [R19.8] Start: 01-05-2024 End: 01-05-2024 Patient encounter procedure [facility] Physical Therapy Comment on above: FMD Start: 01-04-2024 End: 01-04-2024 ambulatory 01/04/2024 8:00 AM EDT [facility] Neurological Scientologist [address] [place] [address] Connie Dale MD [address] [place] [address] FMD Neurological Scientologist Comment on above: FMD Start: 01-02-2024 End: 01-02-2024 Patient encounter procedure 01/02/2024 10:30 AM EDT Office Visit Colorectal Surgery [address] [facility] [address] [place] [address] Quinton Barker APRN.STAFF RESEARCH SCIENTIST [address] [place] [address] Rectal tenesmus [R19.8] Colorectal Surgery Comment on above: Rectal tenesmus [R19.8] Start: 01-02-2024 End: 01-02-2024 Admission to same day surgery center 01/02/2024 10:00 AM EDT Procedure Colorectal Surgery [address] [facility] [address] [place] [address] Quinton Barker APRN.STAFF RESEARCH SCIENTIST [address] [place] [address] Rectal tenesmus [R19.8] Colorectal Surgery Comment on above: Rectal tenesmus [R19.8] Start: 12-29-2023 End: 12-29-2023 Patient encounter procedure 12/29/2023 2:30 PM EDT Office Visit Pain Management [address] [facility] [address] [place] [address] Carrie Lea APRN.STAFF RESEARCH SCIENTIST [address] [facility] [place] [address] Pain Pain Management Comment on above: Pain Start: 12-27-2023 End: 12-27-2023 [facility] Sleep Disorders [facility] Comment on above: VV-Sleep study f/u 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 Start: 12-25-2023 End: 12-25-2023 Patient encounter procedure 12/25/2023 11:00 AM EDT Office Visit Kidney Medicine [address] [place] [address] Chris Gates MD [address] [place] [address] Labile blood pressure [R09.89]; POTS (postural orthostatic tachycardia syndrome) [G90.A Kidney Medicine Comment on above: Labile blood pressure [R09.89]; POTS (po stural orthostatic tachycardia syndrome) [G90.A Start: 12-22-2023 End: 12-22-2023 Patient encounter procedure Neurology Comment on above: botox botox; 155u 11/22 Start: 12-22-2023 End: 12-22-2023 ambulatory 12/22/2023 8:40 AM EDT [facility] Internal Medicine [place] [address] [facility] [address] [place] [address] Noa Gauthier DO [address] [place] [address] Medicine / genetic information Internal Medicine [place] Comment on above: Medicine / genetic information Start: 12-19-2023 End: 12-19-2023 ambulatory 12/19/2023 4:45 PM EDT [facility] Urology [address] [address] Issa Henriquez MD [address] [place] [address] virtual f/u for voiding dysfunction per CC chart Urology Comment on above: virtual f/u for voiding dysfunction per CC chart Start: 12-15-2023 End: 12-15-2023 Patient encounter procedure Radiology Comment on above: US KIDNEY/BLADDER per CC chart Flurod with EMG per CC chart VUDS NGB. dysf void, F/U 12/18 Start: 12-12-2023 End: 12-12-2023 Follow-up encounter 12/12/2023 8:00 AM EDT [facility] Endocrinology [address] [place] [address] Farooq Mcgraw MD [address] [place] [address] Follow Up-go over lab results Endocrinology Comment on above: Follow Up-go over lab results Start: 12-11-2023 End: 12-11-2023 ambulatory 12/11/2023 10:15 AM EDT OT/PT/Speech Visit [facility] [address] [place] [address] Meet Landis, PT [address] [address] 2/8 visits back pain [facility] Comment on above: 2/8 visits back pain Start: 12-04-2023 End: 12-04-2023 Follow-up encounter Neurological Scientologist Comment on above: 3 month follow up Follow up / neurolog ical symptoms Start: 12-04-2023 End: 12-04-2023 Patient encounter procedure 12/04/2023 8:15 AM EDT Office Visit Neurology [address] [place] [address] [facility] Neurology Comment on above: MSLT Start: 12-03-2023 End: 12-03-2023 Patient encounter procedure 12/03/2023 8:45 PM EDT Office Visit Neurology [address] [place] [address] Main, Psg Neur [address] [place] [address] PSG w/MSLT Neurology Comment on above: PSG w/MSLT Start: 11-29-2023 End: 11-29-2023 ambulatory 11/29/2023 8:45 AM EDT OT/PT/Speech Visit [facility] [address] [place] [address] Meet Landis, PT [address] [place] [address] 2 visits back pain [facility] Comment on above: 2/8 visits back pain Start: 11-22-2023 End: 11-22-2023 Follow-up encounter 11/22/2023 10:00 AM EDT [facility] Neurology [address] [place] [phone] Kelvin Shetlon, TEACHER [employer]CHO[employer].STAFF RESEARCH SCIENTIST [address] [place] [address] Follow up qsart and various symptoms Neurology Comment on above: Follow up qsart and various symptoms Start: 11-17-2023 End: 11-17-2023 ambulatory 11/17/2023 1:00 PM EDT Results Only [facility] [address] [place] [address] [place] [address] [facility] Start: 11-17-2023 End: 11-17-2023 Patient encounter procedure Neurology Comment on above: ACT Excessive sleepiness ; Hypersomnia Start: 11-13-2023 End: 11-13-2023 Patient encounter procedure Speech Pathology Comment on above: FEES and videostroboscopy Start: 11-08-2023 End: 11-08-2023 ambulatory [facility] Comment on above: M54.9,G89.29 (ICD-10-CM) - Chronic back pain, unspecified back location, unspecified back pain laterality 2/8 visits M54.9,G89 .29 (ICD-10-CM) - Chronic back pain, unspecified back location, unspecified back pain laterality Start: 11-07-2023 End: 11-07-2023 Patient encounter procedure [facility] Part of [facility] Comment on above: 6 wk post-op TLH BA 1/3 INCREASED BACK PAIN Start: 11-03-2023 End: 02-02-2024 TOX SCREEN ROUT UR TOX SCREEN ROUT UR Lab Routine Excessive sleepiness Hypersomnia Expected: 11/03/2023, Expires: 02/02/2024 [facility] Work Phone: Comment on above: Expected: 11/03/2023, Expires: 4 Start: 10-31-2023 End: 11-23-2024 US Kidney - bilateral and Urinary bladder US KIDNEY/BLADDER Radiology Routine Voiding dysfunction Expected: 10/31/2023, Expires: 11/23/2024 [facility] Comment on above: Expected: 10/31/2023, Expires: 5 Start: 10-30-2023 End: 10-30-2023 Patient encounter procedure 10/30/2023 10:00 AM EDT Office Visit Kidney Medicine [address] [place] [phone] Chris Gates MD [address] [place] [address] Labile blood pressure [R09.89]; POTS (postural orthostatic tachycardia syndrome) [G90.A Kidney Medicine Comment on above: Labile blood pressure [R09.89]; POTS (po stural orthostatic tachycardia syndrome) [G90.A Start: 10-27-2023 End: 10-27-2023 ambulatory 10/27/2023 11:30 AM EDT Results Only [facility] [address] [place] [address] [place] [address] [facility] Start: 10-25-2023 Depression Monitoring Depression Monitoring [facility] Start: 10-25-2023 End: 10-25-2023 Follow-up encounter 10/25/2023 11:00 AM EDT [facility] Neurological Scientologist [address] [place] [address] Rubin Verde MD [address] [place] [address] 3 month follow up Neurological Scientologist Comment on above: 3 month follow up Start: 10-24-2023 End: 10-24-2023 Patient encounter procedure Rheumatology 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 Start: 10-23-2023 End: 10-23-2023 ambulatory 10/23/2023 11:00 AM EDT OT/PT/Speech Visit [facility] [address] [place], [place] [id number] Meet Landis, PT [address] [place], [place] [id number] M54.9,G89.29 (ICD-10-CM) - Chronic back pain, unspecified back location, unspecified back pain laterality [facility] Comment on above: M54.9,G89.29 (ICD-10-CM) [...] Vaccine (3 - Booster for Pfizer series) [facility] Comment on above: Postponed from 08/10/2021 (Patient Refus ed) Start: 10-11-2023 Depression Monitoring Depression Monitoring [facility] Start: 10-11-2023 End: 10-11-2023 Patient encounter procedure 10/11/2023 11:45 AM EDT Office Visit [facility]ECOLOGY Part of [address] [place] [address] Quinton Mckeon PA-C [address] [place] [address] 2 wk post-op [facility] BA 06/14 [facility]EC[facility] Part of [facility] Comment on above: 2 wk post-op [facility] 06/14 Start: 10-10-2023 End: 10-10-2023 Patient encounter procedure 10/10/2023 12:00 PM EDT Office Visit Pain Management [address] [facility] [address] [place] [address] Carrie Lea, SHAY.STAFF RESEARCH SCIENTIST [address] [facility] [facility] [place] [address] follow up Pain Management Comment on above: follow up Start: 10-09-2023 End: 10-09-2023 Patient encounter procedure Otolaryngology Comment on above: FEES and videostroboscopy Start: 10-06-2023 End: 10-06-2023 Follow-up encounter 10/06/2023 11:00 AM EDT [facility] Pain Management [address] [facility] [address] [place] [address] Jeremy Madrid MD [address] [place] [id number] Follow Up (Degenerative Condition) Pain Management Comment on above: Follow Up (Degenerative Condition) Start: 10-04-2023 End: 10-04-2023 Follow-up encounter 10/04/2023 10:00 AM EDT [facility] Neurology [address] [place] [address] Kelvin Shelton, TEACHER [employer]CHO[employer].STAFF RESEARCH SCIENTIST [address] [place], [place] [id number] follow up after testing Neurology Comment on above: follow up after testing Start: 10-02-2023 End: 10-02-2023 Admission to same day surgery center 10/02/2023 1:30 PM EDT - 10/02/2023 3:50 PM EDT Surgery [facility] OR [address] [place] [address] Michelle Mota, DO [address] [place] [address] HYSTERECTOMY VAGINAL LAPAROSCOPIC ROBOTIC ASSISTED-POSSIBLE BSO, POSSIBLE LAPAROSCOPIC COLPOPEXY (TLH) [facility] OR Comment on above: HYSTERECTOMY VAGINAL LAPAROSCOPIC ROBOTI C ASSISTED-POSSIBLE BSO, POSSIBLE LAPAROSCOPIC COLPOPEXY (TLH) Start: 10-02-2023 End: 10-02-2023 Laps total hysterect 250 gm/< w/rmvl tube/ovary HYSTERECTOMY VAGINAL LAPAROSCOPIC ROBOTIC ASSISTED Pelvic pain Adenomyosis 10/02/2023 1:30 PM EDT [facility] Start: 10-02-2023 Subsequent hospital visit by physician 10/02/2023 1:30 PM EDT Hospital Encounter [facility] [address] [place] [address] Michelle Mota, DO [address] [place] [address] [facility] Start: 09-29-2023 End: 09-29-2023 Admission to same day surgery center 09/29/2023 8:50 AM EDT - 09/29/2023 11:10 AM EDT Surgery [facility] [address] [place] [address] Michelle Mota, DO [address] [place] [id number] HYSTERECTOMY ABDOMINAL LAPAROSCOPIC-VAGINAL , POSSIBLE BSO, POSSIBLE LAPAROSCOPIC COLPOPEXY (TLH) [facility] OR Comment on above: HYSTERECTOMY ABDOMINAL LAPAROSCOPIC-VAGI NAL , POSSIBLE BSO, POSSIBLE LAPAROSCOPIC COLPOPEXY (TLH) Start: 09-29-2023 End: 09-29-2023 Laps total hysterect 250 gm/< w/rmvl tube/ovary HYSTERECTOMY ABDOMINAL LAPAROSCOPIC Pelvic pain Adenomyosis 09/29/2023 8:50 AM EDT [facility] Start: 09-29-2023 Subsequent hospital visit by physician 09/29/2023 8:50 AM EDT Hospital Encounter [facility] OR [address] [place] [address] Michelle Mota, [address] [place] [address] [facility] Start: 09-19-2023 End: 09-19-2023 Patient encounter procedure [facility] Part of [facility] Comment on above: pre-op TLH BA 06/14 discuss surgery BA Start: 09-04-2023 End: 12-04-2023 Corticotropin [Mass/volume] in Plasma ACTH BLD Lab Routine Low serum cortisol level Expected: 09/04/2023, Expires: 12/04/2023 [facility] Work Phone: Comment on above: Expected: 09/04/2023, Expires: Start: 09-04-2023 End: 12-04-2023 Cortisol [Mass/volume] in Serum or Plasma CORTISOL BLD Lab Routine Low serum cortisol level Expected: 09/04/2023, Expires: 12/04/2023 [facility] Work Phone: Comment on above: Expected: 09/04/2023, Expires: Start: 09-04-2023 End: 12-04-2023 DHEA-S BLD DHEA-S BLD Lab Routine Low serum cortisol level Expected: 09/04/2023, Expires: 12/04/2023 [facility] Work Phone: Comment on above: Expected: 09/04/2023, Expires: Start: 08-21-2023 End: 08-21-2023 Patient encounter procedure 08/21/2023 1:20 PM EDT Office Visit [facility] [address] [place] [phone] Kavita Gama, TEACHER [employer] - STAFF RESEARCH SCIENTIST [address] [place] [address] 1 month [facility] Comment on above: 1 month Start: 08-10-2023 End: 08-10-2023 Patient encounter procedure 08/10/2023 8:40 AM EST Office Visit [facility] [address] [place] [address] Kavita Gama, TEACHER [employer]CHO[employer] - STAFF RESEARCH SCIENTIST [address] [place] [address] 3 month cehck [facility] Comment on above: 3 month cehck Start: 08-03-2023 End: 11-02-2023 CELIAC SCREEN WITH REFLEX [facility] Work Phone: Comment on above: Expected: 08/03/2023, Expires: Start: 08-03-2023 End: 11-02-2023 INTRINSIC FACTOR BLOCKING AB [facility] Work Phone: Comment on above: Expected: 08/03/2023, Expires: Start: 08-03-2023 End: 11-02-2023 Voltage-gated potassium channel Ab [Moles/volume] in Serum [facility] Work Phone: Comment on above: Expected: 08/03/2023, Expires: Start: 07-26-2023 End: 07-26-2023 Patient encounter procedure 07/26/2023 10:45 AM EST Office Visit [facility] UROLOGY Part of [address] [place] [phone] Mohinder Garcia MD [address] [place] [address], [address] [place] [phone] reevauation [address] Franklin BRYSON [facility] UROLOG Part of [facility] Comment on above: reevauation DR Franklin BRYSON Start: 07-20-2023 End: 07-20-2023 Patient encounter procedure 07/20/2023 2:20 PM EST Office Visit [facility] [address] [place] [address] Kavita Gama, TEACHER [employer] - STAFF RESEARCH SCIENTIST [address] [place] [address] 6 month check up [facility] Comment on above: 6 month check up Start: 06-12-2023 Depression Assessment Depression Assessment [facility] Start: 05-18-2023 Screening for malignant neoplasm of cervix Pap Smear [facility] Start: 02-27-2023 Depression screening using PHQ-9 (Patient Health Questionnaire 9) score Depression Screening (PHQ-2/9) [facility] Start: 02-21-2023 End: 02-21-2023 Patient encounter procedure 02/21/2023 Office Visit Cardiology Kristina Jacobs MD [address] [place] [phone] [facility] CARDIOLOGY [facility] Start: 02-14-2023 End: 02-14-2023 Patient encounter procedure 02/14/2023 Office Visit Obstetrics and Gynecology Michelle Mota DO [address] [place], [place] [phone] [facility]YNECOLOGY [facility] Start: 02-10-2023 Covid-19 Vaccine ( season) Covid-19 Vaccine ( season) [facility] Start: 02-10-2023 Influenza vaccination [facility] Start: 01-18-2023 End: 01-18-2023 Patient encounter procedure 01/18/2023 Office Visit Obstetrics and Gynecology Quinton Mckeon PA-C [address] [place] [address] [facility]YNECOLOGY [facility] Start: 01-10-2023 Influenza vaccination Flu vaccine (Season Ended) [facility] Start: 12-30-2022 End: 12-30-2022 Admission to same day surgery center 12/30/2022 Surgery IP Unit Michelle Mota DO [address] [place] [address] HYSTERECTOMY VAGINAL LAPAROSCOPIC ASSISTED (LAV[facility])- POSS BSO, POSS LAP COLPOPEXY [facility] Comment on above: HYSTERECTOMY VAGINAL LAPAROSCOPIC ASSIST ED (LAVH)- POSS BSO, POSS LAP COLPOPEXY Start: 12-30-2022 End: 12-30-2022 Laps total hysterect 250 gm/< w/rmvl tube/ovary HYSTERECTOMY VAGINAL LAPAROSCOPIC ASSISTED (LAVH) Chronic pelvic pain in female 12/30/2022 7:30 AM EDT [facility] Start: 12-30-2022 Subsequent hospital visit by physician 12/30/2022 Hospital Encounter IP Unit Michelle Mota, DO [address] [place] [address] [facility] Start: 12-27-2022 End: 12-27-2022 Patient encounter procedure 12/27/2022 Office Visit Obstetrics and Gynecology Michelle Mota, DO [address] [place] [address] [facility] Part of [facility] Start: 12-21-2022 End: 02-20-2023 COPPER BLOOD [facility] Work Phone: Comment on above: Expected: 12/21/2022, Expires: 3 Start: 12-21-2022 End: 02-20-2023 Methylmalonate [Moles/volume] in Serum or Plasma [facility] Work Phone: Comment on above: Expected: 12/21/2022, Expires: 3 Start: 12-21-2022 End: 02-20-2023 Pyridoxine [Mass/volume] in Serum or Plasma [facility] Work Phone: Comment on above: Expected: 12/21/2022, Expires: Start: 12-21-2022 End: 02-20-2023 Zinc [Mass/volume] in Serum or Plasma [facility] Work Phone: Comment on above: Expected: 12/21/2022, Expires: Start: 12-15-2022 End: 02-14-2023 ANTI NEUTRO CYTO AB [facility] Work Phone: Comment on above: Expected: 12/15/2022, Expires: 3 Start: 12-15-2022 End: 02-14-2023 Tissue transglutaminase Ab panel - Serum [facility] Work Phone: Comment on above: Expected: 12/15/2022, Expires: Start: 12-08-2022 End: 12-08-2022 Patient encounter procedure 12/08/2022 Office Visit Obstetrics and Gynecology Jaja Truong, SHAY - CNM [address] [place] [address] [facility]ECOLOG[facility] Start: 11-16-2022 End: 11-16-2022 Patient encounter procedure 11/16/2022 Office Visit Primary Care Kavita Gmaa, TEACHER [employer] - STAFF RESEARCH SCIENTIST [address] [place] [address] [facility] Start: 11-14-2022 End: 11-14-2022 Patient encounter procedure 11/14/2022 Office Visit Cardiology Kristina Jacobs MD [address] [facility] [place] [phone] [facility] CARDIOLOG[facility] Start: 11-10-2022 End: 11-10-2022 Patient encounter procedure [facility] Start: 10-25-2022 End: 10-25-2022 Patient encounter procedure 10/25/2022 11:15 AM EDT Office Visit [facility] Phys[facility] Rheumatology [facility] [place] [address] Cisco Garcia MD [address] [place] [address] [facility] Rheumatology Start: 10-18-2022 End: 10-18-2022 Patient encounter procedure 10/18/2022 Office Visit Obstetrics and Gynecology Jaja Truong APRN - CNJesica [address] [place] [address] [facility]YNECOLOGY [facility] Start: 09-27-2022 End: 09-27-2022 Patient encounter procedure [facility] Dermatology Start: 09-05-2022 End: 09-05-2022 Patient encounter procedure 09/05/2022 Office Visit Rheumatology Cisco Garcia MD [address] [place] [address] [facility] Rheumatology Start: 08-24-2022 End: 08-24-2022 Patient encounter procedure 08/24/2022 Office Visit Obstetrics and Gynecology Jaja Truong APRN - CN [address] [facility] [place], [place] [phone] [facility] Start: 08-04-2022 End: 10-04-2022 TOX SCREEN ROUT UR TOX SCREEN ROUT UR Lab Routine Excessive sleepiness Parasomnia, unspecified type Hypersomnia Sleep paralysis Expected: 08/04/2022, Expires: 10/04/2022 [facility] Work Phone: Comment on above: Expected: 08/04/2022, Expires: Start: 07-20-2022 Adolescent depression screening assessment Depression Screening [facility] Start: 07-20-2022 Hepatitis C screening Hepatitis C Screening [facility] Start: 07-20-2022 HIV screening HIV Screening [facility] Start: 07-20-2022 Lipid panel Cholesterol Screening (Lipid Panel) [facility] Start: 07-20-2022 Social Influencers of Health Screening [employer] Screening [facility] Start: 07-01-2022 End: 08-31-2022 Alpha tocopherol [Mass/volume] in Serum or Plasma VITAMIN E/TOCOPHEROL Lab Routine Disturbance of skin sensation Expected: 07/01/2022, Expires: 08/31/2022 [facility] Work Phone: Comment on above: Expected: 07/01/2022, Expires: Start: 07-01-2022 End: 08-31-2022 Calcium.ionized [Moles/volume] in Blood CALCIUM IONIZED BLOOD Lab Routine Muscle cramp Expected: 07/01/2022, Expires: 08/31/2022 [facility] Work Phone: Comment on above: Expected: 07/01/2022, Expires: Start: 07-01-2022 End: 08-31-2022 Ceruloplasmin [Mass/volume] in Serum or Plasma CERULOPLASMIN BLD Lab Routine Disturbance of skin sensation Expected: 07/01/2022, Expires: 08/31/2022 [facility] Work Phone: Comment on above: Expected: 07/01/2022, Expires: 3 Start: 07-01-2022 End: 08-31-2022 Cobalamin (Vitamin B12) [Mass/volume] in Serum or Plasma VITAMIN B12 BLOOD Lab Routine Disturbance of skin sensation Expected: 07/01/2022, Expires: 08/31/2022 [facility] Work Phone: Comment on above: Expected: 07/01/2022, Expires: 3 Start: 07-01-2022 End: 08-31-2022 COPPER BLOOD COPPER BLOOD Lab Routine Disturbance of skin sensation Expected: 07/01/2022, Expires: 08/31/2022 [facility] Work Phone: Comment on above: Expected: 07/01/2022, Expires: 3 Start: 07-01-2022 End: 08-31-2022 Creatine kinase [Enzymatic activity/volume] in Serum or Plasma CK CREATINE KINASE Lab Routine Muscle cramp Expected: 07/01/2022, Expires: 08/31/2022 [facility] Work Phone: Comment on above: Expected: 07/01/2022, Expires: Start: 07-01-2022 End: 08-31-2022 Magnesium [Mass/volume] in Serum or Plasma MAGNESIUM BLD Lab Routine Muscle cramp Expected: 07/01/2022, Expires: 08/31/2022 [facility] Work Phone: Comment on above: Expected: 07/01/2022, Expires: 3 Start: 07-01-2022 End: 08-31-2022 Methylmalonate [Moles/volume] in Serum or Plasma METHYLMALONIC ACID Lab Routine Disturbance of skin sensation Expected: 07/01/2022, Expires: 08/31/2022 [facility] Work Phone: Comment on above: Expected: 07/01/2022, Expires: Start: 07-01-2022 End: 08-31-2022 Parathyrin.intact [Mass/volume] in Serum or Plasma PTH INTACT BLD Lab Routine Muscle cramp Expected: 07/01/2022, Expires: 08/31/2022 [facility] Work Phone: Comment on above: Expected: 07/01/2022, Expires: 3 Start: 07-01-2022 End: 08-31-2022 Tissue transglutaminase Ab panel - Serum TRANSGLUTAMINASE ABS Lab Routine Disturbance of skin sensation Expected: 07/01/2022, Expires: 08/31/2022 [facility] Work Phone: Comment on above: Expected: 07/01/2022, Expires: 3 Start: 07-01-2022 End: 08-31-2022 VITAMIN B1 (THIAMINE), WHOLE BLOOD VITAMIN B1 (THIAMINE), WHOLE BLOOD Lab Routine Disturbance of skin sensation Expected: 07/01/2022, Expires: 08/31/2022 [facility] Work Phone: Comment on above: Expected: 07/01/2022, Expires: 3 Start: 07-01-2022 End: 08-31-2022 Zinc [Mass/volume] in Serum or Plasma ZINC BLD Lab Routine Disturbance of skin sensation Expected: 07/01/2022, Expires: 08/31/2022 [facility] Work Phone: Comment on above: Expected: 07/01/2022, Expires: 3 Start: 06-14-2022 Depression screening using PHQ-9 (Patient Health Questionnaire 9) score Depression Screening (PHQ-2/9) [facility] Start: 06-14-2022 History and physical examination, annual for health maintenance Wellness Visit [facility] Start: 06-12-2022 DEPRESSION ASSESSMENT DEPRESSION ASSESSMENT [facility] Start: 05-26-2022 End: 11-22-2022 Ferritin [Mass/volume] in Serum or Plasma FERRITIN BLD Lab Routine RLS (restless legs syndrome) Expected: 05/26/2022, Expires: 11/22/2022 [facility] Work Phone: Comment on above: Expected: 05/26/2022, Expires: 3 Start: 05-26-2022 End: 11-22-2022 Iron and Iron binding capacity panel - Serum or Plasma IRON + TIBC Lab Routine RLS (restless legs syndrome) Expected: 05/26/2022, Expires: 11/22/2022 [facility] Work Phone: Comment on above: Expected: 05/26/2022, Expires: 3 Start: 04-18-2022 End: 04-18-2022 Patient encounter procedure 04/18/2022 Office Visit Neurology Nolberto Perez MD [address] [place] [address] [facility] [facility] Start: 04-11-2022 End: 04-11-2022 Patient encounter procedure 04/11/2022 Appointment Neurology Nolberto Perez MD [address] [place] [address] [facility] EEG Start: 03-21-2022 End: 03-21-2022 Patient encounter procedure 03/21/2022 Office Visit Neurology Nolberto Perez MD [address] [place] [address] [facility] Start: 03-14-2022 End: 03-14-2022 Patient encounter procedure 03/14/2022 Appointment Radiology Nolberto Perez MD [address] [place] [address] [facility] MRI Start: 02-21-2022 End: 02-21-2022 Patient encounter procedure 02/21/2022 Office Visit Neurology Nolberto Perez MD [address] [place] [address] [facility] Start: 02-10-2022 Influenza vaccination [facility] Start: 01-10-2022 Influenza vaccination Flu vaccine (#1) [facility] Start: 11-13-2021 COVID-19 Vaccine (3 - Booster for Pfizer series) COVID-19 Vaccine (3 - Booster for Pfizer series) [facility] Start: 08-10-2021 COVID-19 Vaccine (3 - Booster for Pfizer series) COVID-19 Vaccine (3 - Booster for Pfizer series) [facility] Start: 08-10-2021 COVID-19 VACCINE (3 - Pfizer series) COVID-19 VACCINE (3 - Pfizer series) [facility] Start: 06-14-2021 End: 06-14-2021 Patient encounter procedure 06/14/2021 Office Visit Primary Care Harish Garza DO [address] [place] [address] [facility] Start: 06-12-2021 DEPRESSION ASSESSMENT DEPRESSION ASSESSMENT [facility] Start: 06-08-2021 End: 06-01-2022 Complete blood count with white cell differential, manual CBC and Differential Lab Routine Annual physical exam Expected: 06/08/2021 (Approximate), Expires: 06/01/2022 [facility] Work Phone: Comment on above: Expected: 06/08/2021 (Approximate), Expi res: 06/01/2022 Start: 06-08-2021 End: 06-01-2022 Comprehensive metabolic 2000 panel - Serum or Plasma Comprehensive Metabolic Panel Lab Routine Annual physical exam Expected: 06/08/2021 (Approximate), Expires: 06/01/2022 [facility] Comment on above: Expected: 06/08/2021 (Approximate), Expi res: 06/01/2022 Start: 06-08-2021 End: 06-01-2022 Hemoglobin A1c/Hemoglobin.total in Blood Hemoglobin A1c Lab Routine Annual physical exam Expected: 06/08/2021 (Approximate), Expires: 06/01/2022 [facility] Comment on above: Expected: 06/08/2021 (Approximate), Expi res: 06/01/2022 Start: 06-08-2021 End: 06-01-2022 Lipid 1996 panel - Serum or Plasma Lipid Panel Lab Routine Annual physical exam Expected: 06/08/2021 (Approximate), Expires: 06/01/2022 [facility] Comment on above: Expected: 06/08/2021 (Approximate), Expi res: 06/01/2022 Start: 06-08-2021 End: 06-01-2022 Thyrotropin [Units/volume] in Serum or Plasma TSH Lab Routine Annual physical exam Expected: 06/08/2021 (Approximate), Expires: 06/01/2022 [facility] Comment on above: Expected: 06/08/2021 (Approximate), Expi res: 06/01/2022 Start: 03-14-2021 Screening for malignant neoplasm of cervix Cervical cancer screen [facility], [place] Start: 03-09-2021 COVID-19 Vaccine (2 - Pfizer 3-dose series) COVID-19 Vaccine (2 - Pfizer 3-dose series) [facility] Start: 02-10-2021 Influenza vaccination [facility] Start: 12-29-2020 Adolescent depression screening assessment Depression Screening (PHQ9) [facility] Start: 12-29-2020 Depression screening using PHQ-9 (Patient Health Questionnaire 9) score Depression Screening (PHQ9) [facility] Start: 12-08-2020 End: 12-08-2020 Patient encounter procedure 12/08/2020 Routine Obstetrics and Gynecology Michelle Mota DO [address] [place] [address] [phone] [facility] Start: 12-02-2020 End: 12-02-2020 Patient encounter procedure 12/02/2020 Routine Obstetrics and Gynecology Jaja Truong APRN - CNM [address] [place] [address] [phone] [facility] Start: 11-25-2020 End: 11-25-2020 Patient encounter procedure 11/25/2020 Routine Obstetrics and Gynecology Jaja Truong APRN - CNM [address] [place] [address] [phone] [facility] Start: 11-25-2020 End: 11-25-2020 Professional / ancillary services management 11/25/2020 Ancillary Procedure Obstetrics and Gynecology [facility] Start: 11-23-2020 End: 11-23-2020 Patient encounter procedure 11/23/2020 Routine Obstetrics and Gynecology Jaja Truong APRN - CNM [address] [place] [address] [phone] [facility] Start: 11-18-2020 End: 11-18-2020 Patient encounter procedure 11/18/2020 Routine Obstetrics and Gynecology Jaja Truong APRN - CNM [address] [place] [address] [phone] [facility] Start: 10-05-2020 End: 10-05-2020 Ancillary Procedure [facility] Start: 09-22-2020 End: 09-22-2020 Routine 09/22/2020 Routine Obstetrics and Gynecology Ephraim, Susie J, DO [address] [id number] [facility] [employer] [facility] Start: 09-08-2020 End: 11-08-2020 Blood type and Indirect antibody screen panel - Blood Type and Screen Blood Bank Routine Herpes simplex type 2 (HSV-2) infection affecting , 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 Expected: 09/08/2020, Expires: 11/08/2020 [facility] Comment on above: Expected: 09/08/2020, Expires: Start: 09-08-2020 End: 11-08-2020 Complete blood count (hemogram) panel - Blood by Automated count CBC Lab Routine Herpes simplex type 2 (HSV-2) infection affecting , 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 Expected: 09/08/2020, Expires: 11/08/2020 [facility] Comment on above: Expected: 09/08/2020, Expires: Start: 09-08-2020 End: 09-08-2020 Initial [facility] [employer] [facility] Start: 07-27-2020 End: 07-27-2020 Ancillary Procedure [facility] Start: 07-15-2020 End: 07-15-2020 Office Visit 07/15/2020 Office Visit Cardiology Kristina Jacobs MD [address] [address] [facility] Start: 06-16-2020 End: 06-16-2020 Ancillary Procedure [facility] Start: 05-27-2020 End: 05-27-2020 Routine 05/27/2020 Routine Obstetrics and Gynecology [facility] Start: 2020 HPV TESTING HPV TESTING [facility] Start: 2020 Screening for malignant neoplasm of cervix HPV Testing [facility] Start: 04-29-2020 End: 04-29-2020 Routine 04/29/2020 Routine Obstetrics and Gynecology Jaja Truong, [employer] - CNM [address] [place], [place] [id number] [facility] Start: 02-11-2020 Influenza vaccination Flu vaccine (#1) [place], [place] Start: 02-11-2020 Influenza vaccination given Sequential Influenza Vaccine (#1) [facility] Start: 12-30-2019 End: 12-29-2020 Standard chest X-ray XR Chest AP/PA and LAT Imaging Routine Preop examination Expected: 12/30/2019, Expires: 12/29/2020 [facility] Comment on above: Expected: 12/30/2019, Expires: 1 Start: 03-14-2019 Screening for malignant neoplasm of cervix Cervical cancer screen [place], [place] Start: 03-03-2018 Screening for malignant neoplasm of cervix Pap Smear [facility] Start: 2011 PAP TESTING PAP TESTING [facility] Start: 2011 Screening for malignant neoplasm of cervix [facility] Start: 2009 DTaP/Tdap/Td vaccine (1 - Tdap) DTaP/Tdap/Td vaccine (1 - Tdap) [place], [place] Start: 2009 Hepatitis B Vaccine (1 of 3 - 19+ 3-dose series) Hepatitis B Vaccine (1 of 3 - 19+ 3-dose series) [facility] Start: 2009 Urine microalbumin profile [facility] Start: 2008 Anxiety Screening Anxiety Screening [facility] Start: 2008 Depression Screening Depression Screening [facility] Start: 2008 HEPATITIS C SCREENING HEPATITIS C SCREENING [facility] Start: 2008 HIV SCREENING HIV SCREENING [facility] Start: 2006 COVID-19 Vaccine (1 of 2) COVID-19 Vaccine (1 of 2) [facility] Start: 2006 COVID-19 Vaccine (1) COVID-19 Vaccine (1) [facility] Start: 2005 HIV screening HIV SCREENING DISCUSSION [facility] Start: 2002 COVID-19 Vaccine (1) COVID-19 Vaccine (1) [facility] Start: 2002 Depression Screen Depression Screen [facility] Start: 1996 Pneumococcal 0-64 years Vaccine (1 - PCV) Pneumococcal 0-64 years Vaccine (1 - PCV) [facility] Start: 1996 PNEUMOCOCCAL VACCINE SERIES (1 - PCV) PNEUMOCOCCAL VACCINE SERIES (1 - PCV) [facility] Start: 1996 Pneumococcal Vaccine: Ped or At-Risk (1 - PCV) Pneumococcal Vaccine: Ped or At-Risk (1 - PCV) [facility] Start: 1996 Pneumococcal Vaccine: Ped or At-Risk (1 of 2 - PPSV23) Pneumococcal Vaccine: Ped or At-Risk (1 of 2 - PPSV23) [facility] Start: 1996 Pneumococcal Vaccine: Pediatrics (0 to 5 Years) and At-Risk Patients (6 to 64 Years) (1 - PCV) Pneumococcal Vaccine: Pediatrics (0 to 5 Years) and At-Risk Patients (6 to 64 Years) (1 - PCV) [facility] Start: 1995 COVID-19 Vaccine (1) COVID-19 Vaccine (1) [facility] Start: 1993 History and physical examination, annual for health maintenance Wellness Visit [facility] Start: 1991 Varicella vaccine (1 of 2 - 2-dose childhood series) Varicella vaccine (1 of 2 - 2-dose childhood series) [facility] Start: 1990 HEPATITIS B (1 of 3 - 3-dose series) HEPATITIS B (1 of 3 - 3-dose series) [facility] Start: 1990 Hepatitis B Vaccine (1 of 3 - 3-dose series) Hepatitis B Vaccine (1 of 3 - 3-dose series) [facility] Start: 1990 Hepatitis B Vaccines (1 of 3 - 3-dose series) Hepatitis B Vaccines (1 of 3 - 3-dose series) [facility] Start: 1990 Hepatitis C screening HEPATITIS C VIRUS SCREENING [facility] Start: 1990 Smoking cessation education SMOKING CESSATION DISCUSSION [facility] End: 08-28-2020 12 lead ECG ECG 12 Lead ECG Routine Once for 1 Occurrences starting 08/28/2020 until 08/28/2020 [facility] Comment on above: Once for 1 Occurrences starting 08/29/19 21 until 08/28/2020 ACTIGRAPHY TESTING ACTIGRAPHY TE STING Procedures Routine Excessive sleepiness Parasomnia, unspecified type Hypersomnia Sleep paralysis 1 Occurrences starting 08/04/2022 [facility] Work Phone: Comment on above: 1 Occurrences starting 08/04/2022 ACTIGRAPHY TESTING ACTIGRAPHY TE STING Procedures Routine Excessive sleepiness Hypersomnia 1 Occurrences starting 09/19/2023 [facility] Work Phone: Comment on above: 1 Occurrences starting 09/19/2023 Ambulatory bp mntr w /sw 24 hr+ rec scan malika i&r AMBULATORY BP MONITORING Cardiology Routine Labile blood pressure Ordered: 08/03/2023 [facility] Work Phone: Comment on above: Ordered: 08/03/2023 End: 02-21-2023 MAXWELL measurement [facility] Lab Add-On Visual disturbance Fatigue, unspecified type Migraine with aura and without status migrainosus, not intractable Dizziness 1 Occurrences starting 02/21/2022 until 02/21/2023 [facility] Comment on above: 1 Occurrences starting 02/21/2022 until 02/21/2023 MAXWELL measurement [facility] Lab Add-On V isual disturbance Fatigue, unspecified type Migraine with aura and without status migrainosus, not intractable Dizziness 02/21/2022 1:03 PM EDT [facility] End: 11-14-2022 MAXWELL Screen With Reflex [facility] Work Phone: Comment on above: 1 Occurrences starting 11/14/2022 until 11/14/2022 End: 03-09-2023 B12/Folate B12/Folate Lab Routine Fatigue, unspecified type 1 Occurrences starting 03/09/2022 until 03/09/2023 [facility] Comment on above: 1 Occurrences starting 03/09/2022 until 03/09/2023 Bacteria identified Aer cx Nom (Unsp spec) Urine Aerobic Culture Microbiology Routine Herpes simplex type 2 (HSV-2) infection affecting , 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 Ordered: 09/08/2020 [employer] Comment on above: Ordered: 09/08/2020 End: 11-17-2020 Bacteria identified in Urine by Culture Urine culture Microbiology Routine One Time for 1 Occurrences starting 11/17/2020 until 11/17/2020 [employer] Phone: Comment on above: One Time for 1 Occurrences starting 01/2021 until 11/17/2020 End: 11-20-2020 Bacteria identified in Urine by Culture Urine culture Microbiology Routine One Time for 1 Occurrences starting 11/20/2020 until 11/20/2020 [employer] Phone: Comment on above: One Time for 1 Occurrences starting 11/10 until 11/20/2020 Blood copper measurement Copper, Serum Lab Routine 02/28/2022 11:42 AM EDT [employer] Work Phone: End: 02-21-2023 C reactive protein [Mass/volume] in Serum or Plasma CRP, Inflammation Lab Routine Visual disturbance Fatigue, unspecified type Migraine with aura and without status migrainosus, not intractable Dizziness 1 Occurrences starting 02/21/2022 until 02/21/2023 [facility] Comment on above: 1 Occurrences starting 02/21/2022 until 02/21/2023 C reactive protein [Mass/volume] in Serum or Plasma CRP, Inflammation Lab Routine Visual disturbance Fatigue, unspecified type Migraine with aura and without status migrainosus, not intractable Dizziness 02/21/2022 1:03 PM EDT [facility] End: 07-12-2022 C.trachomatis [facility]rhoeae DNA [facility] [employer] Phone: Comment on above: 1 Occurrences starting 07/12/2022 until 07/12/2022 End: 04-01-2020 C.trachomatis N.gonorrhoeae DNA, Urine C.trachomatis N.gonorrhoeae DNA, Urine Microbiology Routine Amenorrhea Positive urine test Encounter for supervision of other normal in first trimester 1 Occurrences starting 04/01/2020 until 04/01/2020 [place] Comment on above: 1 Occurrences starting 04/01/2020 until 04/01/2020 C.trachomatis N.gonorrhoeae DNA, Urine C.trachomatis N.gonorrhoeae DNA, Urine Microbiology Routine Amenorrhea Positive urine test Encounter for supervision of other normal in first trimester 04/01/2020 1:30 PM EDT [place] End: 08-28-2020 Chlamydia trachomatis rRNA assay Chlamydia/GC/Trichomona s Amplified RNA Microbiology Routine Once for 1 Occurrences starting 08/28/2020 until 08/28/2020 [facility] Comment on above: Once for 1 Occurrences starting 08/29/19 until 08/28/2020 Chlamydia trachomati s rRNA assay Chlamydia/GC/Trichomona s Amplified RNA Microbiology Routine 08/28/2020 8:13 PM EDT [facility] End: 02-21-2023 Cobalamin (Vitamin B12) [Mass/volume] in Serum or Plasma Vitamin B12 Lab Routine Visual disturbance Fatigue, unspecified type Migraine with aura and without status migrainosus, not intractable Dizziness 1 Occurrences starting 02/21/2022 until 02/21/2023 [facility] Comment on above: 1 Occurrences starting 02/21/2022 until 02/21/2023 Cobalamin (Vitamin B 12) [Mass/volume] in Serum or Plasma Vitamin B12 Lab Routine Visual disturbance Fatigue, unspecified type Migraine with aura and without status migrainosus, not intractable Dizziness 02/21/2022 1:03 PM EDT [facility] End: 07-28-2023 Cobalamin (Vitamin B12) [Mass/volume] in Serum or Plasma Vitamin B12 Lab Routine B12 deficiency 1 Occurrences starting 07/28/2022 until 07/28/2023 [facility] Work Phone: Comment on above: 1 Occurrences starting 07/28/2022 until 07/28/2023 End: 11-10-2022 Continuous cardiac monitoring, >2 up to 14 days Continuous cardiac monitoring, >2 up to 14 days Cardiac Services Routine Palpitations Lightheaded Dizziness Chest tightness SOB (shortness of breath) Vision changes 1 Occurrences starting 11/10/2022 until 11/10/2022 [facility] [employer] Work Phone: Comment on above: 1 Occurrences starting 11/10/2022 until 11/10/2022 End: 11-17-2020 Culture, Strep B Screen, Vaginal/Rectal Culture, Strep B Screen, Vaginal/Rectal Microbiology Routine One Time for 1 Occurrences starting 11/17/2020 until 11/17/2020 [employer] Phone: Comment on above: One Time for 1 Occurrences starting 01/2021 until 11/17/2020 Culture, Strep B Scr een, Vaginal/Rectal Culture, Strep B Screen, Vaginal/Rectal Microbiology [employer] 11/17/2020 11:50 PM EDT [employer] Phone: End: 04-01-2020 Culture, Urine Culture, Urine Microbiology Routine Amenorrhea Positive urine test Encounter for supervision of other normal in first trimester 1 Occurrences starting 04/01/2020 until 04/01/2020 [employer] [facility] Comment on above: 1 Occurrences starting 04/01/2020 until 04/01/2020 Culture, Urine Culture, Urine Microbiology Routine Amenorrhea Positive urine test Encounter for supervision of other normal in first trimester 04/01/2020 1:30 PM EDT [employer] [facility] End: 05-18-2020 Cytopathology procedure, preparation of smear, genital source PAP SMEAR Lab Routine Screening for cervical cancer 1 Occurrences starting 05/18/2020 until 05/18/2020 [employer] Comment on above: 1 Occurrences starting 05/18/2020 until 05/18/2020 End: 07-27-2024 Echocardiography ECHO Cardiology Routine Palpitations 1 Occurrences starting 07/27/2023 until 07/27/2024 [facility] Work Phone: Comment on above: 1 Occurrences starting 07/27/2023 until 07/27/2024 End: 02-28-2022 EEG (STANDARD) [employer] Work Phone: Comment on above: Once for 1 Occurrences starting 02/29/20 until 02/28/2022 End: 03-09-2023 EEG Sleep deprived EEG Sleep deprived Neurology Routine Convulsions, unspecified convulsion type (HCC) 1 Occurrences starting 03/09/2022 until 03/09/2023 [facility] Work Phone: Comment on above: 1 Occurrences starting 03/09/2022 until 03/09/2023 EKG 12 Lead EKG 12 Lead ECG STAT 07/14/2020 11:55 AM EST [facility] [place] EKG 12 Lead EKG 12 Lead ECG STAT 10/17/2022 12:32 PM EDT [facility] Work Phone: End: 12-22-2023 EMG(NEURO/NI) EMG(NEURO/NI) EMG Routine Hyperreflexia Fasciculations Weakness 1 Occurrences starting 12/21/2022 until 12/22/2023 [facility] Work Phone: Comment on above: 1 Occurrences starting 12/21/2022 until 12/22/2023 End: 03-08-2025 EPIL EEG LONG EPIL EEG LONG NEUROLOGY Routine Jerking 1 Occurrences starting 03/08/2024 until 03/08/2025 [facility] Comment on above: 1 Occurrences starting 03/08/2024 until 03/08/2025 End: 02-21-2023 Erythrocyte sedimentation rate Sedimentation Rate Lab Routine Visual disturbance Fatigue, unspecified type Migraine with aura and without status migrainosus, not intractable Dizziness 1 Occurrences starting 02/21/2022 until 02/21/2023 [facility] Comment on above: 1 Occurrences starting 02/21/2022 until 02/21/2023 Erythrocyte sedimentation rate Sedimentation Rate Lab Routine Visual disturbance Fatigue, unspecified type Migraine with aura and without status migrainosus, not intractable Dizziness 02/21/2022 1:03 PM EDT [facility] End: 02-21-2023 Extractable nuclear antigen antibody screening test IHSAN Screen (SSA/B,SM,RN HYPERBARIC,SCL70,JO1 ) Lab Add-On Visual disturbance Fatigue, unspecified type Migraine with aura and without status migrainosus, not intractable Dizziness 1 Occurrences starting 02/21/2022 until 02/21/2023 [facility] Comment on above: 1 Occurrences starting 02/21/2022 until 02/21/2023 Extractable nuclear antigen antibody screening test IHSAN Screen (SSA/B,SM,RN HYPERBARIC,SCL70,JO1 ) Lab Add-On Visual disturbance Fatigue, unspecified type Migraine with aura and without status migrainosus, not intractable Dizziness 02/21/2022 1:03 PM EDT [facility] End: 01-23-2025 Flexible sigmoidoscopy study COLONOSCOPY DIAGNOSTIC Endoscopy Routine Constipation, unspecified constipation type Chronic abdominal pain 1 Occurrences starting 01/24/2024 until 01/23/2025 [facility] Work Phone: Comment on above: 1 Occurrences starting 01/24/2024 until 01/23/2025 FLUROURODYNAMICS WIT H EMG FLUROURODYNAMICS WITH EMG Procedures Routine Voiding dysfunction Ordered: 10/24/2023 [facility] Work Phone: Comment on above: Ordered: 10/24/2023 End: 02-21-2023 Folate [Mass/volume] in Serum or Plasma Folate Lab Routine Visual disturbance Fatigue, unspecified type Migraine with aura and without status migrainosus, not intractable Dizziness 1 Occurrences starting 02/21/2022 until 02/21/2023 [facility] Comment on above: 1 Occurrences starting 02/21/2022 until 02/21/2023 Folate [Mass/volume] in Serum or Plasma Folate Lab Routine Visual disturbance Fatigue, unspecified type Migraine with aura and without status migrainosus, not intractable Dizziness 02/21/2022 1:03 PM EDT [facility] End: 02-21-2023 Heavy Metals Screen, Blood Heavy Metals Screen, Blood Lab Routine Visual disturbance Fatigue, unspecified type Migraine with aura and without status migrainosus, not intractable Dizziness 1 Occurrences starting 02/21/2022 until 02/21/2023 [facility] Comment on above: 1 Occurrences starting 02/21/2022 until 02/21/2023 Heavy Metals Screen, Blood Heavy Metals Screen, Blood Lab Routine Visual disturbance Fatigue, unspecified type Migraine with aura and without status migrainosus, not intractable Dizziness 02/21/2022 5:03 PM EDT [facility] End: 02-21-2023 HEPATITIS PROFILE (ABC) Hepatitis Profile (ABC) Lab Routine Visual disturbance Fatigue, unspecified type Migraine with aura and without status migrainosus, not intractable Dizziness 1 Occurrences starting 02/21/2022 until 02/21/2023 [facility] Comment on above: 1 Occurrences starting 02/21/2022 until 02/21/2023 HEPATITIS PROFILE (ABC) Hepatiti s Profile (ABC) Lab Routine Visual disturbance Fatigue, unspecified type Migraine with aura and without status migrainosus, not intractable Dizziness 02/21/2022 1:03 PM EDT [facility] End: 02-21-2023 Human immunodeficiency virus antibody test HIV Antibody (HIV1/HIV2) Lab Add-On Visual disturbance Fatigue, unspecified type Migraine with aura and without status migrainosus, not intractable Dizziness 1 Occurrences starting 02/21/2022 until 02/21/2023 [facility] Comment on above: 1 Occurrences starting 02/21/2022 until 02/21/2023 Human immunodeficien cy virus antibody test HIV Antibody (HIV1/HIV2) Lab Add-On Visual disturbance Fatigue, unspecified type Migraine with aura and without status migrainosus, not intractable Dizziness 02/21/2022 1:03 PM EDT [facility] End: 02-21-2023 Measurement of Borrelia burgdorferi antibody Lyme Disease IgG/IgM w/Western Blot Reflex, Blood Lab Add-On Visual disturbance Fatigue, unspecified type Migraine with aura and without status migrainosus, not intractable Dizziness 1 Occurrences starting 02/21/2022 until 02/21/2023 [facility] Comment on above: 1 Occurrences starting 02/21/2022 until 02/21/2023 Measurement of Borre tonie burgdorferi antibody Lyme Disease IgG/IgM w/Western Blot Reflex, Blood Lab Add-On Visual disturbance Fatigue, unspecified type Migraine with aura and without status migrainosus, not intractable Dizziness 02/21/2022 1:03 PM EDT [facility] End: 02-18-2023 Molecular genetic test [id number] Mutation Detection Lab Add-On Elevated hematocrit 1 Occurrences starting 02/18/2022 until 02/18/2023 [facility] Work Phone: Comment on above: 1 Occurrences starting 02/18/2022 until 02/18/2023 End: 02-21-2023 MR Brain With And Without Contrast MR Brain With And Without Contrast Imaging Routine Visual disturbance Fatigue, unspecified type Migraine with aura and without status migrainosus, not intractable Dizziness 1 Occurrences starting 02/21/2022 until 02/21/2023 [facility] Work Phone: Comment on above: 1 Occurrences starting 02/21/2022 until 02/21/2023 End: 01-20-2024 Mri spinal canal cervical w/o contrast matrl MRI CERVICAL SPINE WO IVCON Radiology Routine Spinal stenosis of cervical region 1 Occurrences starting 12/21/2022 until 01/20/2024 [facility] Work Phone: Comment on above: 1 Occurrences starting 12/21/2022 until 01/20/2024 End: 07-31-2023 Mri spinal canal lumbar w/o & w/contr matrl MRI LUMBAR SPINE WO/W IVCON Radiology Routine Paresthesia of saddle area Fecal smearing 1 Occurrences starting 07/01/2022 until 07/31/2023 [facility] Work Phone: Comment on above: 1 Occurrences starting 07/01/2022 until 07/31/2023 End: 01-20-2024 Mri spinal canal thoracic w/o contrast matrl MRI THORACIC SPINE WO IVCON Radiology Routine Hyperreflexia Weakness B12 deficiency 1 Occurrences starting 12/21/2022 until 01/20/2024 [facility] Work Phone: Comment on above: 1 Occurrences starting 12/21/2022 until 01/20/2024 End: 08-04-2023 MULTIPLE SLEEP LATENCY TEST MULTIPLE SLEEP LATENCY TEST Procedures Routine Excessive sleepiness Parasomnia, unspecified type Hypersomnia Sleep paralysis 1 Occurrences starting 08/04/2022 until 08/04/2023 [facility] Work Phone: Comment on above: 1 Occurrences starting 08/04/2022 until 08/04/2023 End: 09-18-2024 MULTIPLE SLEEP LATENCY TEST MULTIPLE SLEEP LATENCY TEST Procedures Routine Excessive sleepiness Parasomnia, unspecified type Hypersomnia Sleep paralysis 1 Occurrences starting 09/19/2023 until 09/18/2024 [facility] Work Phone: Comment on above: 1 Occurrences starting 09/19/2023 until 09/18/2024 End: 02-21-2023 Myasthenia gravis panel measurement MG Evaluation Adult Lab Routine Visual disturbance Fatigue, unspecified type Migraine with aura and without status migrainosus, not intractable Dizziness 1 Occurrences starting 02/21/2022 until 02/21/2023 [facility] Comment on above: 1 Occurrences starting 02/21/2022 until 02/21/2023 Myasthenia gravis pa tawanna measurement MG Evaluation Adult Lab Routine Visual disturbance Fatigue, unspecified type Migraine with aura and without status migrainosus, not intractable Dizziness 02/21/2022 1:03 PM EDT [facility] End: 08-28-2020 Neisseria gonorrhoeae nucleic acid detection Chlamydia/Gonorrhoeae Amplified RNA Microbiology Routine Once for 1 Occurrences starting 08/28/2020 until 08/28/2020 [facility] Comment on above: Once for 1 Occurrences starting 08/29/19 21 until 08/28/2020 Neisseria gonorrhoea e nucleic acid detection Chlamydia/Gonorrhoeae Amplified RNA Microbiology Routine 08/28/2020 8:13 PM EDT [facility] NEURO CARDIO AUTONOM IC REFLEX W/WO TILT NEURO CARDIO AUTONOMIC REFLEX W/WO TILT Procedures Routine Disturbance of skin sensation Ordered: 07/01/2022 [facility] Work Phone: Comment on above: Ordered: 07/01/2022 NEURO CARDIO AUTONOM IC REFLEX W/WO TILT NEURO CARDIO AUTONOMIC REFLEX W/WO TILT Procedures Routine Orthostatic lightheadedness Tachycardia Ordered: 12/15/2022 [facility] Work Phone: Comment on above: Ordered: 12/15/2022 NEURO QSART NEURO QSART Proc edures Routine Paresthesia of skin Disorder of the autonomic nervous system, unspecified Ordered: 08/03/2023 [facility] Work Phone: Comment on above: Ordered: 08/03/2023 Njx anes&/strd w/img tfrml edrl lmbr/sac ea lv INJ TRANSFRAM EPID ANES/STER LS MULTI Procedures Routine Scoliosis of lumbar spine, unspecified scoliosis type Lumbar herniated disc Degeneration of lumbar intervertebral disc Annular tear of cervical disc Discogenic low back pain Bilateral lumbar radiculopathy Lumbar spondylosis 1 Occurrences starting 10/04/2022 [facility] Work Phone: Comment on above: 1 Occurrences starting 10/04/2022 Njx dx/ther agt pvrt facet jt lmbr/sac 1 level NJX DX/THER AGT PVRT FACET JT LMBR/SAC 1 LEVEL Procedures Routine Scoliosis of lumbar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 TYPICALLY MAY NOT BE ADEQUATE TO RECEIVE THE CARE THAT YOU NEED. A consult order has been placed in the system during today's visit. -[facility] side: Bernadette Ponce DO ([place]), Jasmeet Baxter ([place]) ([place]), Carolee Day MD ([facility]), Priscila Harris MD ([place]), Nico Magdaleno ([place]) -[facility] side: Carla Che CNP ([facility]), Tiara Beckham CNP ([facility]), Kelli Truong ([place]), Darrian Shannon MD ([place]), Nico Joe CNP ([place]) -[facility] ([place]): Pastora Alas MD, Beverly Vasquez MD -[place] or [facility]: Yara Youngblood MD ([place]), Christi Brenner MD ([place]), Lencho Patel CNP ([place] & [place]), -[facility] only- [facility] is with a referral from your doctor for more complex menopausal concerns [a consult order from your doctor and at least 30 minutes required for an appointment with this group]: Britney Amador (also functional med expertise), Mary Joseph (also weight loss focus), Landen Sarabia (also bone health), or Jyoti Simmons. -[facility]: Tiara Bowers CNP and others Hereditary breast and ovarian cancer (for those carrying high risk genes): Janet De La Rosa MD (COMPOSITION MIXER oncologist, for ovary removal), Medical breast group (to discuss breast surgery or screening/imaging), Dr. Caridad Mercado (COMPOSITION MIXER and breast surgeon, to discuss surgery, sexual health, or hormones) For further info: Menopause: -Our Women[facility]: [phone] (they can help direct to who you need to see). -[place] Menopause Society- now called the Menopause Society (has multiple short videos from specialists around the world, geared towards patients and doctors). Website is menopause.org. [email or web address].com/@MenopauseS ociety. -[facility] menopause websites: Provides locations, clinician names: [email or web address].durham[employer] [email or web address]/serv ices/menopause-treatment Conversational articles and videos: https://health.durham[employer] Bookstore.org/ navigating-menopause/ Formal health education page: [email or web address]/heal /diseases/[email or web address]-zmhiidbwr [facility] page: https://[facility].durhamMy Mega Bookstore.org/[facility]/dirlqi-fechvdfischyl-giquav-[facility] center[facility]-center General women's health info: -The [facility] Health Library and Health Essentials sections unlocks lots of info: https://[facility].[employer].org/heal th/diseases -Speaking of women's health (has searchable page for multiple brief articles): [email or web address].[email or web address]/ Some of the information shared on the slides today: Sleep: melatonin 1-5 mg or magnesium 400-600mg, sleep hygiene Hair loss: minoxidil (Rogaine), male strength Brows and lashes: Latisse Acne & wrinkles: prescription retinoid Mood change: psychology, meditation, journaling, positive affirmations Vaginal dryness: Crisco (from can), coconut oil Bone loss: calcium >1000 mg per day (divided doses, this includes diet) & adequate vit D Weight loss: intermittent fasting, weight loss specialist Libido: regular scheduled sexual activity. Book from Kelvin Watters PhD: Come as You Are: The Surprising New Science that Will Transform Your Sex Life (make sure to get the newer edition, because the older version is somewhat outdated). Lubricants and moisturizers list (non-hormonal) The mdhy-dqw-xmrlcuc vaginal moisturizer and lubricant products can be confusing to sort through, especially since there are no FDA requirements for how they can be marketed or labeled. In general there are 3 categories of products: Vaginal lubricants should be used at the time of intercourse to decrease friction. Long acting vaginal moisturizers are used at least twice weekly to increase vaginal (internal) lubrication and elasticity. Vulvar moisturizers are for external use for vulvar comfort and do not impact vaginal lubrication or elasticity. Vaseline petroleum products and oils (baby oil, coconut, olive oil,) can make condoms break, so should not be used with condoms. In many women, these can cause infections. However, if you have sore spots on the vulva (outer lips), then petroleum jelly can sometimes be helpful. All of the products listed below are over the counter. Many can be bought in any drugstore or online. Also, many [employer] stores do carry high-quality lubricant products. VAGINAL LUBRICANTS: (For use during sexual activity) Lubricants should be applied to the outside and opening of the vagina at the time of sexual activity. The lubricant can also be applied to the penis or a device. Silicone based lubricants should not be used on silicone vibrators or toys. Both silicone and water based lubricants are condom compatible. If you use a water based lubricant, it is also important to choose a lubricant with low osmolality since lubricants with high osmolality increase the chance of irritation and infection. Osmolality information can be hard to find. All of the following lubricants have a low osmolality, are pH balanced, and are preservative free. WATER BASED LUBRICANTS Good Clean Love (made of organic ingredients) Pulse H2Oh! Sylk Natural System Taylor PreSeed (Does not impact sperm motility and can be used if trying to conceive, also good for those with multiple sensitivities, though may not work as well) SILICONE BASED LUBRICANTS Uber lube Replens Silky Smooth Pulse Aloe-ahh Wet Soboba TAYLOR Premium Personal Lubricant PINK Silicone Lubricant SLIQUID Organics silk Pulse is a hands free personal lubricant warming dispenser and is sold with water or silicone based lubricant pods that some women prefer for travel. LONG ACTING VAGINAL MOISTURIZERS: (For regular use inside vagina to maintain moisture) Long acting vaginal moisturizers should be used at least twice weekly on a regular basis. Many women find they need to use a moisturizer 3-5 times/week. In addition, it is important to not only apply the moisturizer inside the vagina, but also to apply to the vestibule (the external area surrounding the opening of the vagina). Women who are not sexually active often find that the regular use of a long acting vaginal moisturizer makes them feel more comfortable. Border Measurer And Cutter beware: many lubricants are labeled as moisturizers to make them more appealing to consumers (even though they don t function as a true moisturizer). Replens Long Acting Vaginal Moisturizer (Available in all drugstores) HyaloGyn Vaginal Hydrating Gel (hybrid moisturizer, but can function as lubricant too) Revaree (hyaluronic acid) VULVAR MOISTURIZERS: (For external use) Plain Vaseline is one of the favorite options for external use. Can also try Crisco from the can, or coconut oil. Some other options that can be purchased mrlt-vuo-kgjfcav are: Replens Moisture Restore Comfort Gel is to be used externally for dry vulvar skin. Desert Mathis Aloe [place]: Many people are allergic to aloe, so keep this in mind with products like this that have aloe in it. Medicine Mama s V magic: Not much medical studies on this, but many patients swear by it, has oil, beeswax and honey in it- best used externally only. Chiavaye is a general moisturizer that can be used anywhere on the body, made up of organic natural oils only. COMPATIBILITY OF DIFFERENT LUBRICANTS WITH DEVICES AND CONDOMS: Menopause: Non-Hormonal Treatment & Relief for Hot Flashes Knowing the triggers of hot flashes Hot flashes may be precipitated by hot weather, smoking, caffeine, spicy foods, alcohol, tight clothing, heat and stress. Identify and avoid your hot flash triggers. Some women notice hot flashes when they eat a lot of sugar. Exercising in warm temperatures might make hot flashes worse. Diet Avoiding caffeine, spicy foods, and alcohol can help lessen both the number and severity of hot flashes. Many women try to incorporate more plant estrogens into their diet. Plant estrogens, such as isoflavones, are thought to have weak estrogen-like effects that may reduce hot flashes. They may work in the body like a weak form of estrogen. Examples of plant estrogens include: soybeans, chickpeas, lentils, flaxseed, grains, beans, fruits, red clover and vegetables. In general, soybeans, chickpeas, and lentils are considered to have the most powerful plant estrogens, though their effect is much less than that of human estrogen. Try to choose natural foods rather than supplements. Also remember that only crushed or ground forms of flaxseed are likely to help (as compared to the whole seed or seed oil forms). What foods have high amounts of isoflavones? Food: Soybeans, green, raw Isoflavone Amount (Mg) In Food (100g): 151.17 Food: Soy flour (textured) Isoflavone Amount (Mg) In Food (100g): 148.61 Food: Soybeans, dry roasted Isoflavone Amount (Mg) In Food (100g): 128.35 Food: Instant beverage soy, powder, not reconstituted Isoflavone Amount (Mg) In Food (100g): 109.51 Food: Miso soup mix, dry Isoflavone Amount (Mg) In Food (100g): 60.39 Food: Soybean chips Isoflavone Amount (Mg) In Food (100g): 54.16 Food: Tempeh, cooked Isoflavone Amount (Mg) In Food (100g): 53.00 Food: Soybean curd cheese Isoflavone Amount (Mg) In Food (100g): 28.20 Food: Tofu, silken Isoflavone Amount (Mg) In Food (100g): 27.91 Food: Tofu, yogurt Isoflavone Amount (Mg) In Food (100g): 16.30 Food: Soymilk Isoflavone Amount (Mg) In Food (100g): 9.65 Lifestyle changes Reducing the temperature in a room, dressing in layers, and the use of a fan while asleep can be effective ways to help deal with troublesome hot flashes. Women who are overweight tend to have more bothersome hot flashes, therefore weight loss can be helpful. Quitting smoking has a dual importance during menopause. First, smoking contributes to the increased cardiovascular risks of being postmenopausal. Second, smokers tend to experience more hot flashes. Women who lead a sedentary life seem to suffer more from hot flashes; however, it is best to exercise in a cooler environment. Try deep, slow abdominal breathing (6 to 8 breaths per minute). Practice deep breathing for 15 minutes in the morning, 15 minutes in the evening and at the onset of hot flashes. For some women, wearing socks to bed is helpful as it can help to cool core body temperature. Relieving insomnia Keep the bedroom cool to prevent night sweats. Avoid using sleeping pills. Exercise daily. Avoid caffeine and alcohol at night. Take a warm bath or shower at bedtime. Try milk products at bedtime or during the night (but avoid products that contain caffeine). There are cooling mattresses that can be really helpful (examples like ChilPAD, OOLER, ChiliBLANKET, etc) Coping with mood swings, fears, and depression Find a self-calming skill to practice, such as yoga, meditation or slow, deep breathing. Avoid tranquilizers, if possible. Engage in a creative outlet that fosters a sense of achievement. Stay connected with your family and community; nurture your friendships. Relieving painful intercourse Try using a vaginal water-based moisturizing lotion or lubricant during intercourse. These are sold without a prescription near the condoms in most stores. Common names include-Astroglide and KY liquid . Avoid Vaseline , as it may lead to yeast infections. Prescription and nonprescription remedies A number of non-hormonal remedies are available for the treatment of hot flashes. Some of these remedies (e.g., black cohosh and soy products) are available jzmh-bzq-bghjuod but are not FDA-approved. Some prescription medications are used off label to help reduce hot flashes. Using a product off label means that it is not FDA-approved for the treatment of hot flashes, but is often used because it can be safe and effective for hot flash treatment. Prescription therapies Prescription therapies are considered the more effective non-hormonal treatments. Most are not FDA approved to treat menopause, but are approved to treat other medical conditions, and have also been shown to be helpful for menopause symptoms and are commonly used for that purpose. Brisdelle is approved for menopause symptom treatment, but can sometimes can be more costly than the other treatment options which are found as generics. Drug: Oxybutynin (Ditropan ), oxybutynin XL (Ditropan XL ), oxybutynin TDDS (Oxytrol ). Bladder spasm and incontinence medication Side Effects: constipation, dry hot mouth, or lightheadedness. Confusion/falls (more often in the elderly). Those with narrow angle glaucoma typically can't use. Effectiveness: Good effectiveness has been shown. Drug: venlafaxine(Effexor ), antidepressant Side Effects: Nausea, change in bowel habits, headache (temporary side effects for most). Elevated blood pressure (at high doses). Effectiveness: Effectiveness has been proven in several well-designed studies. One of the safer medications for women taking tamoxifen (no drug interaction). Drug: desvenlafaxine(Pristiq ), antidepressant Side Effects: Similar to venlafaxine. Nausea, change in bowel habits, headache (temporary side effects for most). Elevated blood pressure (at high doses) Effectiveness: Improvement in hot flashes compared to placebo has been shown. Newer medication compared to venlafaxine, so there are a smaller number of studies are available. Drug: fluoxetine (Prozac ), antidepressant Side Effects: Nausea, change in bowel habits, decreased libido, insomnia. Should be avoided in women taking tamoxifen. Effectiveness: Improvement in hot flashes has been shown in well-designed studies. Drug: paroxetine (Paxil , Brisdelle ), antidepressant Side Effects: Nausea, change in bowel habits, decreased libido, dry mouth, weight gain (not common). Should be avoided in women taking tamoxifen. Effectiveness: Brisdelle has been FDA-approved to treat hot flashes. Tends to be more effective for sleep in women who are also suffering with insomnia. Improvement in hot flashes has been shown in well-designed studies. Drug: escitalopram (Lexapro ), antidepressant Side Effects: Nausea, change in bowel habits, decreased libido, abnormal EKG (not common). Effectiveness: Tends to be more effective for sleep in women who are also suffering with insomnia. Drug: gabapentin (Neurontin ) antiseizure medications most commonly used for pain/sleep/headache Side Effects: Fatigue, dizziness, nausea, disorientation, swelling, weight gain. Effectiveness: Tends to be more effective for sleep in women who are also suffering with insomnia. Drug: clonidine (Catapres ) Side Effects: Dry mouth, drowsiness, fatigue, constipation, lowers blood pressure. Effectiveness: Relieved hot flashes in some, but not all studies. Less commonly used than the other options. Drug: fezolinetant (Veozah ) Side Effects: abdominal pain, diarrhea, liver enzyme increase (will need to check every 3 months in the first year). Can't take with certain medications that are known to inhibit the liver CY enzymes (several possible) Effectiveness: FDA approved for hotflashes, works directly on the temp regulator of the brain Other holistic approaches (which have strong scientific proof of benefit): -CBT (cognitive behavioral therapy). Can be arranged within the psychology department -Hypnotherapy. To set up an appointment, you can call [phone]. Smartphone Cira for Hot Flashes: Ned --> mindfulness/hypnosis approach for hot flash control A few good books: - On to help with symptoms. It is called Managing Hot Flushes and Night Sweats: A cognitive behavioural self-help guide to the menopause. by Chery Zuleta & Eva Truong - Perimenopower by Jaymie Velez Non-prescription, herbal, mnxv-zei-qjzhbrr therapies: Most of the following have been compared to placebo treatment (sugar pill) and has been shown to be not any more effective. Though these are not considered very effective treatments, most of these are considered reasonably safe, but all supplements can be associated with liver enzyme problems. Drug: Evening Imbler Oil Side Effects: Nausea, diarrhea, headache. Effectiveness: Only one well-designed study showing not effective. Drug: Black cohosh Side Effects: Mild stomach upset. Safe up to 6 months only due to possible estrogen-like effects (so breast cancer survivors need to discuss with their oncologist). Liver toxicity has been reported for [place] products. Effectiveness: Some small, short-term studies have suggested benefits, however most studies do not suggest that it works. More regulated in [place]: Remifemin brand (more scientific data on this, if you truly can get from [place]). 40-120mg daily. When you get online not sure what you get. Drug: Soy (plant estrogen). Also referred to as phytoestrogens. Side Effects: Appears safe if consumed in foods. In supplement form, consistency of dose and quality can be a concern. Supplements are not recommended for breast cancer survivors. Effectiveness: For the most part, results from clinical studies show that phytoestrogens are not effective for treatment of hot flashes. Drug: Relizen Side Effects: Thought to have action similar to the antidepressant list above (similar way of working) Effectiveness: Some weak studies reported some benefits, but larger studies will need to be done to understand risks, especially since not regulated. Treatment: Acupuncture Side Effects: Uncomfortable for some, often costly. Generally well-tolerated, but multiple visits required. Effectiveness: Individual trials have reported some benefits, but larger studies have not shown any improvement over placebo procedures. However some women do report benefits with this, so it is possible that more well-designed studies are needed to answer this question. Drug: Vitamin E Side Effects: 13% increase risk of heart failure. Might increase rate in those who use high doses for a long time. A higher risk of prostate cancer has also been shown, but applies only to men. Effectiveness: One study showing effective. However the improvement seen in this was only one less hot flash per day compared to placebo. Are the gtqh-waj-botekom herbal products (botanicals) safe? While safe when taken in moderate amounts through diet, the consumption of extraordinary amounts of soy and isoflavone supplements may be harmful to women with a history of estrogen-dependent cancer, like breast cancer, and possibly to other women as well. More research is needed to determine the safety and effectiveness of botanical treatments. For example, ginseng, dong quai, wild yam, progesterone cream, reflexology, and magnetic devices are sold to help menopausal symptoms, but there are no good studies looking at their safety or effectiveness. To make an informed decision about the use of these treatments, be sure to discuss them with your doctor. Because little is known about many botanicals, the best way to evaluate their safety and effectiveness is to become an educated consumer. Here are some tips to consider when shopping for alternative therapies. Ask yourself the following questions: What is the treatment? What does it involve? How does it work? Why does it work? Are there any risks? What are the side effects? Is it effective? (Ask for evidence or proof) How much does it cost? Once you answer these questions, discuss the therapy with your doctor. Make sure your doctor knows what therapy you are considering in order to discuss possible interactions or side effects with your current treatment. What are warning signs that a product may not be legitimate? When trying to determine whether or not a product is what it says it is, one of the elements you may want to look at is how the product is promoted. Be cautious of products promoted through: Priztagarketers. Direct mailings. Fliptop. Ads disguised as valid news articles. Ads in the back of magazines. Additional red flags to look for include: Big claims: If products claim to be a cure for your condition, or gives outrageous claims, be cautious. Source: Be wary if the product is only offered through one grain elevator operator or purchased only through a healthcare provider s office. Ingredients: Make sure all of the active ingredients are listed, and don t trust secret formulas. Testimonials: Remember that only people who are satisfied with a product give testimonials and that they may be getting paid for their endorsement. Other holistic approaches that have been shown to be effective (when compared to placebo too). Cognitive behavioral therapy (consistently shown to be very effective): Can be performed with a local psychologist, or self taught. [place] [employer] has a great article on this if you Google menopause, [place] [employer], CBT Managing Hot Flushes and Night Sweats: A cognitive behavioural self-help guide to the menopause. Chery Umm Truong Hypnotherapy: Uses deep relaxation, guided imagery to decrease frequency and intensity of hot flashes. Smartphone Cira for Hot Flashes: Ned --> mindfulness/hypnosis approach for hot flash control (I have not used this, but have heard good things from a few colleagues) Weight loss resources 3 Daley books (first is my favorite): How to Lose Weight for the Last Time: Brain-Based Solutions for Permanent Weight Loss. By Pallavi Ferreira MD Always hungry? By Priscila Winters M.D., PhD Obesity code; unlocking the secrets of weight loss. By Ken Bocanegra MD Few Daley podcasts: The weight loss ones are relevant to many issues such as reliance on food/alcohol/drugs, etc. since the concepts they teach are interchangeable. If you don't have a smartphone or ipod, you can listen directly on the internet. One of my favorites is called weight loss for busy physicians by Pallavi Ferreira. Start listening to the podcast for free starting from episode #1 for it to make sense. Or she also has a free starter roadmap to help navigate some of the best of podcasts since there are so many. I also like primal potential . It goes into all aspects of nutrition and maintaining ideal weight, both physical and emotional. Start with the earlier episodes, but later episodes have a lot of sponsored products. The life advisor school by Sofiya Valentino, who is the swimming coach that helps train many of the life advisor across the [place]. Her podcast are excellent, but they go into a variety of topics including managing stress, weight loss, finances, getting where you want with your job, etc. Phit-N-Phat (also called losing 100 pounds with Nicci). No nonsense, straight shooting, plenty of curse words-great content. Different approach: Brain over binge Helpful website with free cira (not sure when will be fully available for free): https://Jingit.unbound technologies Local low dose hormones for vaginal symptoms (GSM;genitourinarysyndrome of menopause) Vaginal DHEA Prasterone 0.5% (Intrarosa nightly) Ospemifene (Osphena ) SERM , 60 mg PO QD Vaginal Estrogen Tablet: Vagifem, Yuvafem 10 mcg 2x/week Insert: Imvexxy, 4 & 10 mcg E2 in coconut oil 3 mo ring: Estring 7.5 mcg daily Creams: Premarin, Estrace (estradiol), variable dose 2x/week Shefali Touch is a simple in office laser procedure to treat the vaginal/urinary concerns that we have discussed. The procedure itself takes about 5 minutes, requires no anesthesia or sedatives. It delivers a gentle laser energy to the vaginal wall tissue to stimulate healing response. Most patients need 3 procedures to see benefit, though many women notice improvement after the 1st procedure. Most women report only a warm sensation, but no pain. The procedure is similar discomfort to what is experienced during an annual gynecologic exam. Down sides are that: 1) everyone may not benefit, 2) benefits may be temporary, 3) schroeder have been reported in spas that offer this, and 4) insurances do not cover this procedure. However, it is a simple option to try for those who are bothered by vaginal dryness. Each procedure costs $500 at [facility] (a series of 3 is the standard, which is $1500). More information about the Pamela Jhaveria Laser is available at: [email or web address] nts-home/ Meds that we use to help with sexual health: Nonhormonal: (The first 2 options are approved for use in premenopausal women, though they help after menopause as well. Insurance coverage is limited, so check with insurance before your appointment to discuss) flibanserin (Addyi): daily pill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 via your member portal at [email or web address]. Please contact your prescriber or [facility] by calling our toll-free number at (TTY ) if you have any question about the information listed above. More information regarding your appeal and state hearing rights is available in your Member Handbook which is located on the Member portal at [email or web address]. Sincerely, [employer] Prior Authorization Department For questions relating to this submission, please contact [facility] at [phone] [facility] Work Phone: 01-02-2024 Telephone encounter Note Patient last seen on 12/22/23. [facility] 01-02-2024 Telephone encounter Note Ambulatory Pharmacy Prior Authorization Note Provider Intervention Required?: No- Pharmacy completed on your behalf. Rx Plan: Medicaid MCO ([employer]) Drug: Colchicine 0.6MG tablets Cover My Meds Daley: [id number] Determination: Denied PA Denied because: non-FDA approved indication Coverage is provided when the prescribed medication is used for a Food and Drug Administration (FDA) approved indication and dose. THE INFORMATION CONTAINED IN THE REMAINING PART OF THIS SECTION IS INTENDED FOR YOUR PROVIDER AND GIVES A MORE DETAILED DESCRIPTION FOR WHY THIS REQUEST WAS NOT APPROVED. Requests for off-label uses of a drug will be considered for approval when all the following criteria is met: 1. The drug is approved by the FDA for use in the [place]; and 2. Documentation must be submitted by the prescriber showing the member has tried and failed the existing FDA approved and/or clinical guideline recommended therapies unless contraindicated or not tolerated; and 3. The prescribed use must be supported by the following: a. Lexicomp: Evidence level A or G; or b. Evidence from at least two published studies from major scientific or medical peer reviewed journals demonstrates safety and efficacy for the specified condition in a comparable population (for example: age group, level of disease severity, etc.) must be submitted by the prescriber. Observational studies will not be considered for this requirement. ii. If applicable clinical trial is yet to be published but interim results are supportive, this must be submitted by the prescriber and may be taken into consideration by the clinician reviewer. The [facility] Policy for Medical Necessity as posted on the [facility] website was reviewed and per [place] Administrative Code Rule 5160-1-01 (C) and (B), a medically necessary service must include: generally accepted standards of medical practice, be clinically appropriate in administration, treatment and outcome and be the lowest cost alternative to effectively treat the condition. Please contact your provider to assist you with other treatment options that might be covered under your benefit package, or other services that might be available through the community. Prior Authorization/Case #: [id number] Prior Authorization Expiration: n/a Time to PA Submission in CMM: 15 min Time to PA Determination in CMM: Same day Additional Information: PA Denial Appeal Process You may ask for an appeal within sixty (60) calendar days after the date of notice. [facility] will provide you with an answer to your appeal within fifteen (15) calendar days from the date you contacted us. If you believe fifteen (15) calendar days could seriously jeopardize your life, physical or mental health or ability to attain, maintain, or regain maximum function, contact [facility] Member Services at the number listed below as soon as possible to expedite your review process. You can submit an appeal by: Calling Member Services at (TTY ). Logging into the [employer] website and clicking on request appeal at [email or web address]. Mailing the form attached to this letter and all additional documentation or information to: Attn: [facility] [address] [place] [address] Your appeal must contain: Your full name and member ID number. Your prescriber s name. Name of medication or Durable Medical Equipment (DME) product. The reason you disagree with the outcome provided by [facility]. Any additional documentation or information to support your request to have the decision changed. If we do not change our decision as a result of your appeal, you will be notified of your right to request a state hearing. If you would like to request a state hearing, you or your authorized customer sales representative must submit a request within ninety (90) calendar days of the notification date of your denied appeal. You must complete the [facility] [facility] appeal process before you are able to request a state hearing. As a member, you have the option to request copies of the documents, records, and other information related to this prior authorization, free of charge. You also have the right to request to continue receiving the service we have denied while we are reviewing your appeal request. Continuation of services must be requested no later than ten (10) days after the date of this notice. You can request copies of documents or request a continuation of services by calling [facility] toll-free at [phone] (TTY ) or submitting an online request for this information via your member portal at [email or web address]. Please contact your prescriber or [facility] by calling our toll-free number at (TTY ) if you have any question about the information listed above. More information regarding your appeal and state hearing rights is available in your Member Handbook which is located on the Member portal at [email or web address]. Sincerely, [employer] Prior Authorization Department For questions relating to this submission, please contact [facility] at [phone] [facility] Work Phone: 01-02-2024 Miscellaneous Notes Ambulatory Pharmacy Prior Authorization Note Provider Intervention Required?: No- Pharmacy completed on your behalf. Rx Plan: Medicaid MCO ([facility]) Drug: Colchicine 0.6MG tablets Cover My Meds Daley: [id number] Determination: Denied PA Denied because: non-FDA approved indication Coverage is provided when the prescribed medication is used for a Food and Drug Administration (FDA) approved indication and dose. THE INFORMATION CONTAINED IN THE REMAINING PART OF THIS SECTION IS INTENDED FOR YOUR PROVIDER AND GIVES A MORE DETAILED DESCRIPTION FOR WHY THIS REQUEST WAS NOT APPROVED. Requests for off-label uses of a drug will be considered for approval when all the following criteria is met: 1. The drug is approved by the FDA for use in the [place]; and 2. Documentation must be submitted by the prescriber showing the member has tried and failed the existing FDA approved and/or clinical guideline recommended therapies unless contraindicated or not tolerated; and 3. The prescribed use must be supported by the following: a. Lexicomp: Evidence level A or G; or b. Evidence from at least two published studies from major scientific or medical peer reviewed journals demonstrates safety and efficacy for the specified condition in a comparable population (for example: age group, level of disease severity, etc.) must be submitted by the prescriber. Observational studies will not be considered for this requirement. ii. If applicable clinical trial is yet to be published but interim results are supportive, this must be submitted by the prescriber and may be taken into consideration by the clinician reviewer. The [employer] Policy for Medical Necessity as posted on the [facility] website was reviewed and per [place] Administrative Code Rule 5160-1-01 (C) and (B), a medically necessary service must include: generally accepted standards of medical practice, be clinically appropriate in administration, treatment and outcome and be the lowest cost alternative to effectively treat the condition. Please contact your provider to assist you with other treatment options that might be covered under your benefit package, or other services that might be available through the community. Prior Authorization/Case #: [id number] Prior Authorization Expiration: n/a Time to PA Submission in CMM: 15 min Time to PA Determination in CMM: Same day Additional Information: PA Denial Appeal Process You may ask for an appeal within sixty (60) calendar days after the date of notice. [employer] will provide you with an answer to your appeal within fifteen (15) calendar days from the date you contacted us. If you believe fifteen (15) calendar days could seriously jeopardize your life, physical or mental health or ability to attain, maintain, or regain maximum function, contact [facility] Member Services at the number listed below as soon as possible to expedite your review process. You can submit an appeal by: Calling Member Services at (TTY ). Logging into the [employer] website and clicking on request appeal at [email or web address]. Mailing the form attached to this letter and all additional documentation or information to: Attn: [facility] [address] [place] [address] Your appeal must contain: Your full name and member ID number. Your prescriber s name. Name of medication or Durable Medical Equipment (DME) product. The reason you disagree with the outcome provided by [employer]. Any additional documentation or information to support your request to have the decision changed. If we do not change our decision as a result of your appeal, you will be notified of your right to request a state hearing. If you would like to request a state hearing, you or your authorized customer sales representative must submit a request within ninety (90) calendar days of the notification date of your denied appeal. You must complete the [employer] appeal process before you are able to request a state hearing. As a member, you have the option to request copies of the documents, records, and other information related to this prior authorization, free of charge. You also have the right to request to continue receiving the service we have denied while we are reviewing your appeal request. Continuation of services must be requested no later than ten (10) days after the date of this notice. You can request copies of documents or request a continuation of services by calling [facility] [facility] toll-free at [phone] (TTY ) or submitting an online request for this information via your member portal at [email or web address]. Please contact your prescriber or [facility] by calling our toll-free number at (TTY ) if you have any question about the information listed above. More information regarding your appeal and state hearing rights is available in your Member Handbook which is located on the Member portal at [email or web address]. Sincerely, [employer] Prior Authorization Department For questions relating to this submission, please contact [facility] at [phone] [facility] received prescription(s) for Colchicine 0.6MG tablets. Benefits investigation was conducted, indicating that a prior authorization is required. PA was initiated and pending review through [employer]. All pertinent clinical information was submitted to insurance. PA done by: [facility]- Daley [id number] Ordering Provider: Barbara Rubio M Murtaugh, Alisha, RN [facility] P: , F: documented in this encounter [facility] 12-29-2023 Instructions Carrie Lea APRN.STAFF RESEARCH SCIENTIST - 12/29/2023 3:01 PM EDT Plan: 1)Consider Bilateral Transforaminal epidural steroid injection L5-S1 - patient to reach out to endocrinology prior to scheduling - as she was recently prescribed Cortef for adrenal insufficiency - provider to send message if ok to schedule steroid injection 2) Continue with current medications 3) Continue with home exercises and stretches. 4) Recommend heat, moist is best, as tolerated as needed 5) RTC 8-10 weeks after injection Please watch for the following red flag symptoms: -weight loss, fevers -chills, night time awakening of pain - bowel bladder incontinence (difficulty holding your urine or stool) -saddle anesthesia (numbness and tingling in your groin area) - progressive numbness or weakness. If these symptoms should arise you should seek emergency treatment. Carrie eLa APRN.CNP December 29, 2023 documented in this encounter [facility] 12-29-2023 History of Present illness Narrative Follow up Visit Patient Name: Bethanie Dinero MR #: [id number] Age: [age] year old Date: December 26, 2023 Referred by: Patient was last seen on 10/10/2023 for the diagnosis of (M47.816) Lumbar spondylosis (primary encounter diagnosis) (Z90.710) S/P WHIT (total abdominal hysterectomy) . The following plan of care was recommended 1) Continue with current medications 2) start physical therapy when possible 3) Recommend heat, moist is best, as tolerated as needed 4) Follow up with COMPOSITION MIXER surgeon for 3 months post-op pain 5) RTC as needed. Was there relief from this treatment? No. Worse with locking both hips. Waking up a lot more. New left leg shooting down . Physical Therapy she states yes. Treatment agreement on file: No Last toxicology screen done:N/A This Episode: Pattern: Constant and Night Pain. Character: Aching, Shooting, and stabbing . Severity: VAS Pain: 8/10 Current Location: LBP Radiation: radiating to both buttocks . Left > right . To knees Associated Signs/Symptoms: Increased appetite, Increased social activity, and Sleep disturbance; awakens during night due to pain. Sensory/Motor Changes: Tingling, Numbness, or Increased sensation. Changes in Bowel/Bladder Control?: supposed to get Cscope . Number of hours of sleep per night: 6 Is sleep interrupted by pain? Yes. Patient feels safe at home: Yes Patient Entered Questionnaires PROMIS Score Percentiles 06/13/2023 09/06/2023 12/04/2023 PROMIS Global Health Scale Physical Health Percentile 1 1 7 7 7 7 4 Mental Health Percentile 0 0 9 9 9 9 2 06/13/2023 07/30/2023 10/06/2023 Physical Health Physical Function [...] six months (see below) 1. Physical therapy: Recently 2. Home exercise program after PT: yes 3. Occupational therapy: No 4. A physician supervised home exercise program (HEP): No 5. Casino Investigator: No Passive conservative therapy lasting 6 weeks in the last six months (see below) 1. Medical devises: shower chair 2. Acupuncture: No 3. Tens unit: PEMS. 4. Prescription pain medication: GABAPENTIN 5. NSAIDS: yES Leaf Stripper: Roman Cardozo RN Imagin03/31/23 MRI Lumbar RESULT: Counting reference: Lumbosacral junction. For the [...] and iliac wings are within normal limits. Patient Entered Questionnaires PROMIS Score Percentiles 06/13/2023 09/06/2023 12/04/2023 PROMIS Global Health Scale Physical Health Percentile 1 1 7 7 7 7 4 Mental Health Percentile 0 0 9 9 9 9 2 06/13/2023 07/30/2023 10/06/2023 Physical Health Physical Function [...] been APPROPRIATELY filled. No suspicious activity was identified.December 29, 2023 by Carrie Lea APRN.STAFF RESEARCH SCIENTIST Current Medications: Flexeril 10mg TID as needed Cataflam 50mg - headache Cymbalta 60mg Gabapentin 600mg TID Robaxin 500mg BID as needed Anticoagulation: none DM: no Physical Therapy: 07/31/23, 10/23/23, 11/29/23 GFR: 90 TENA: 10/10/23 Carrie Lea APRN.STAFF RESEARCH SCIENTIST PHYSICAL EXAMINATION: [facility] 09/18/2023 General appearance: well appearing, alert, and in no acute distress Skin: skin color, texture, turgor normal, no rashes or lesions HEENT: normocephalic, atraumatic, sclera non-icteric Lungs: Respirations even and non-labored. Cardiovascular:Regular rate and rhythm GI: Soft, non-tender, non-distended. Musculoskeletal: Neck: Supple; good ROM., Back: Tenderness on palpation over the lumbar spine. , Straight leg raising test: Right - Negative, Left - Negative, Pain reproduced with extension of the lumbar spine. , SI Joints: Tenderness over the left , Joints: all Normal Neuro: alert and oriented x 3 HPI & ASSESSMENT: Bethanie Dinero is a 33 year old female who presents for chronic low back pain in the setting of fibromyalgia, lumbar spondylosis. She is an established patient of Dr. Jeremy Madrid. , who was last seen on 10/10/23 by Carrie Lea APRN.NIK for low back pain. . She reports low back pain, which she describes as Aching, Shooting, and stabbing, radiates to bilateral buttock to posterior thigh. She reports feeling of tingling in back of leg. She rates her pain at 8/10 currently. She reports pain wakes her at night. The pain is aggravated by certain positioning, sitting, walking, driving. The pain is mitigated by repositioning. She is currently taking - see above. She denies any red flag symptoms including weight loss, fevers, chills, night time awakening of pain, bowel bladder incontinence, saddle anesthesia, progressive numbness or weakness. We discussed that if these symptoms should arise she should seek emergency treatment. She see neurology for headaches. She has completed 3 sessions of PT. She states she has been doing home exercises/stretches. Last seen for whole body pain. She has dx of fibromyalgia. She reports she has had bowel incontinence, addressed on prior visits and ER visits. She reports she is under care of GI specialist. She is asking for a rescue pain medication . Discussed we do not recommend or prescribe opioid pain medications for chronic non-cancer pain. She is teary-eyed in room, talking about her multiple chronic conditions. On exam 33yo female, alert and oriented fully. No apparent distress. She is sitting in exam room with left leg crossed over right. Walks with a normal gait and is able to walk on heels and toes without difficulty or assist. Low back pain elicited with lumbar extension. Tenderness on palpation lumbar spine. Tenderness on palpation left sacroiliac joint. Patricks test and Seymour tests are negative bilaterally. SLR negative bilaterally. Strength 5/5 and sensation are equal and intact bilateral upper and lower extremities. Impression: (M54.16) Bilateral lumbar radiculopathy (primary encounter diagnosis) (M47.816) Lumbar spondylosis Plan: 1) Consider Bilateral Transforaminal epidural steroid injection L5-S1 - patient to reach out to endocrinology prior to scheduling - as she was recently prescribed Cortef for adrenal insufficiency - provider to send message if ok to schedule steroid injection 2) Continue with current medications 3) Continue with home exercises and stretches. 4) Recommend heat, moist is best, as tolerated as needed 5) RTC 8-10 weeks after injection I spent a total of 32 minutes on the date of the service which included preparing to see the patient, [id number] patient care, completing clinical documentation, performing a medically appropriate examination, and ordering medications, tests, or procedures. Carrie Lea APRN.CNP December 29, 2023 documented in this encounter [facility] 12-29-2023 Note [facility] 12-29-2023 Telephone encounter Note The following approved medication requests have been transmitted electronically. Requested Prescriptions Signed Prescriptions Disp Refills methocarbamol (ROBAXIN) 500 mg tablet 120 tablet 3 Sig: Take 1 tablet by mouth two times a day as needed (for headache/pain). Do not take on days you use baclofen. Authorizing Provider: MEGAN KERN PA-C December 29, 2023 12:43 PM [facility] 12-29-2023 Miscellaneous Notes The following approved medication requests have been transmitted electronically. Requested Prescriptions Signed Prescriptions Disp Refills methocarbamol (ROBAXIN) 500 mg tablet 120 tablet 3 Sig: Take 1 tablet by mouth two times a day as needed (for headache/pain). Do not take on days you use baclofen. Authorizing Provider: MEGAN KERN PA-C December 29, 2023 12:43 PM Patient has requested attached RX be re-filled at [facility] instead of previously used pharmacy. Due to market staffing shortages, oesrhaku-rb-[id number] transfers can cause delays due to longer hold times. Please send new RX directly to our pharmacy per patient request. Once approved, please discontinue old orders in Epic to mitigate any duplicate therapy. Thank you! [facility] [phone] (phone) [phone] (fax) documented in this encounter [facility] 12-29-2023 Telephone encounter Note Patient has requested attached RX be re-filled at [facility] Delivery instead of previously used pharmacy. Due to market staffing shortages, udurvhxw-zt-vjashxoo transfers can cause delays due to longer hold times. Please send new RX directly to our pharmacy per patient request. Once approved, please discontinue old orders in Epic to mitigate any duplicate therapy. Thank you! [facility] [phone] (phone) [phone] (fax) [facility] 12-29-2023 Telephone encounter Note [facility] received prescription(s) for Colchicine 0.6MG tablets. Benefits investigation was conducted, indicating that a prior authorization is required. PA was initiated and pending review through [employer]. All pertinent clinical information was submitted to insurance. PA done by: [facility] [id number] Ordering Provider: Barbara Rubio M Murtaugh, Alisha, RN [facility] P: , F: [facility] 12-28-2023 Telephone encounter Note Opened in error [facility] 12-28-2023 Miscellaneous Notes Opened in error documented in this encounter [facility] 12-28-2023 Telephone encounter Note We will request a precertification for a Calcitonin Gene-Related Peptide Receptor Antagonist (GEPANT) Rimegepant for the rescue treatment of chronic migraine . This patient meets ICHD-3 criteria for treatment of migraine with a small molecule CGRP antagonist GEPANT. The FDA has approved GEPANTS for the treatment of migraine. Specifically, the patient has 30 headaches per month, lasting 4 or more hours/day associated with photophobia, phonophobia, nausea for three or more months. Medication overuse headache has been ruled out.Patient will not use with another GEPANT. The patient has tried and failed the following : The following preventative medications have been tried without benefit: Anti-Convulsant Gabapentin (Neurontin) Anti-Depressant and [...] Motrin) ineffective Megan Kern PA-C Headache Section [facility] December 28, 2023 [facility] 12-28-2023 Miscellaneous Notes We will request a precertification for a Calcitonin Gene-Related Peptide Receptor Antagonist (GEPANT) Rimegepant for the rescue treatment of chronic migraine . This patient meets ICHD-3 criteria for treatment of migraine with a small molecule CGRP antagonist GEPANT. The FDA has approved GEPANTS for the treatment of migraine. Specifically, the patient has 30 headaches per month, lasting 4 or more hours/day associated with photophobia, phonophobia, nausea for three or more months. Medication overuse headache has been ruled out.Patient will not use with another GEPANT. The patient has tried and failed the following : The following preventative medications have been tried without benefit: Anti-Convulsant Gabapentin (Neurontin) Anti-Depressant and [...] Motrin) ineffective Megan Kern PA-C Headache Section [facility] December 28, 2023 Addended by: MEGAN KERN on: 12/28/2023 10:15 AM Modules accepted: Orders The following approved medication requests have been transmitted electronically. Requested Prescriptions Signed Prescriptions Disp Refills rimegepant (NURTEC ODT) 75 mg disintegrating tablet 8 tablet 11 Sig: Take 1 tablet by mouth as needed (migraine. No more than 1 dose in 24 hours.). Authorizing Provider: MEGAN KERN PA-C December 28, 2023 10:15 AM Called Pt to let her know that Ubrelvy not on formulary. Explained Nurtec and Ubrelvy are very similar. Pt states she is OK with switching to Nurtec. Gianluca PHOENIX, RN Clinical Postal Transportation Clerk [facility] Please let patient know her insurance formulary preferences nurtec over ubrelvy. Is she ok with me sending in Nurtec? Very similar medication - will be for migraine rescue - one tablet at migraine onset and no more than 1 dose in 24 hours. If ok, I will send in script. Megan Kern PA-C December 28, 2023 8:59 AM Prescription for Ubrelvy is not covered by patient's insurance and rejects as a non-formulary product. Can [facility] receive a new E-Script for Nurtec preferred by [employer], if appropriate? Please discuss any therapy changes with patient as necessary. Thank you! Jeison Huber RPh [facility] [phone] documented in this encounter [facility] 12-28-2023 Note Addended by: MEGAN HUFFMAN on: 12/28/2023 10:15 AM Modules accepted: Orders [facility] 12-28-2023 Telephone encounter Note The following approved medication requests have been transmitted electronically. Requested Prescriptions Signed Prescriptions Disp Refills rimegepant (NURTEC ODT) 75 mg disintegrating tablet 8 tablet 11 Sig: Take 1 tablet by mouth as needed (migraine. No more than 1 dose in 24 hours.). Authorizing Provider: MEGAN KERN, PA-C December 28, 2023 10:15 AM [facility] 12-28-2023 Telephone encounter Note Called Pt to let her know that Ubrelvy not on formulary. Explained Nurtec and Ubrelvy are very similar. Pt states she is OK with switching to Nurtec. Gianluca PHOENIX, RN Clinical Postal Transportation Clerk [facility] 12-28-2023 Telephone encounter Note Please let patient know her insurance formulary preferences nurtec over ubrelvy. Is she ok with me sending in Nurtec? Very similar medication - will be for migraine rescue - one tablet at migraine onset and no more than 1 dose in 24 hours. If ok, I will send in script. Megan Kern PA-C December 28, 2023 8:59 AM [facility] 12-27-2023 Telephone encounter Note Prescription for Ubrelvy is not covered by patient's insurance and rejects as a non-formulary product. Can [facility] receive a new E-Script for Nurtec preferred by [employer], if appropriate? Please discuss any therapy changes with patient as necessary. Thank you! Jeison Huber RPh [facility] [phone] [facility] 12-25-2023 Telephone encounter Note Formatted new order [facility] 12-25-2023 Miscellaneous Notes Formatted new order Patient is calling and stating that the consult for rheumatology was put in as PEDS and not for an adult. Please Advise documented in this encounter [facility] 12-25-2023 Telephone encounter Note Patient is calling and stating that the consult for rheumatology was put in as PEDS and not for an adult. Please Advise [facility] 12-22-2023 Instructions Megan Kern PA-C - 12/22/2023 2:33 PM EDT AFTER VISIT CARE BOTOX INJECTION [...] and see if you qualify for reimbursement. [facility]: [phone] Licensed in [place], [place], [place], [place], [place], [place], [place], [place], [place] and [facility] Consider Karol, Na, Emgality documented in this encounter [facility] 12-22-2023 History of Present illness Narrative Images from the original note were not included. Follow-Up Onabotulinum Toxin A (BotoxTM) for Migraine Indication: Chronic Intractable Migraine Treatment #: 3 Referral Expiration: 09/10/2024 Prior to the initiation of the FIRST treatment with Onabotulinum Toxin A, the patient reported the following average headache frequency over the past 3 MONTHS: Number of moderate-severe migraine days/month: 15 Number of mild migraine days/month: 15 Number of headache free days/month: 0 (0 headache-free hours) Migraine severity: 1010 After treatment with Onabotulinum Toxin A: Number of moderate-severe migraine days/month: 17 Number of mild migraine days/month: 3 Number of headache free days/month: 10 (240 headache-free hours) Patient reduction in overall migraine days: Yes Patient reduction in moderate-severe migraine days: No Patient reduction of headache hours by 100 hours or more: Yes (reduction of 240 hours) Individual has obtained clinical benefit deemed significant by individual or prescriber (Y/N): Yes Patient's quality of life and ability to perform ADLs has improved (Y/N): Yes Side effects: none Wearing off: Yes - 6 weeks after treatment The patient has been assessed for disorders which could contribute to breathing or swallowing difficulty, and there is no contraindication with PREEMPT Botox. There is no documented allergic reaction/hypersensitivity to any botulinum toxin and there is no active infection at proposed injection site. HEADACHE SCORES: 07/25/2023 09/25/2023 12/20/2023 Headache Questions ER visits since last office visit: 0 1 1 Hospital stays since last office visit 0 0 0 Limited ADLs in the last month: 15 15 17 Days missed from work or school in the last month: 30 30 30 Days headache pain free in the last month: 15 10 10 Days per month with ALL of the following symptoms - decreased productivity, light sensitivity and nausea: 15 10 17 Initial improvement of headache after botox injection at last visit: Minimally improved Minimally improved Minimally improved PRN medication usage in the last month: 20 7 8 Patient impression of improvement since last visit: No change Minimally improved Minimally improved 07/25/2023 09/25/2023 12/20/2023 HIT-6 HIT-6 63 (Severe impact) 70 (Severe impact) 72 (Severe impact) 09/29/2023 12/04/2023 12/20/2023 EVA - 2/7 SCORES EVA-2 Score 2 2 4 EVA-7 Score 6 7 14 07/25/2023 09/25/2023 12/20/2023 Migraine Specific QOL - Higher scores indicate better HRQL Role Function-Restrictive Transformed Score (range: 0-100) 51.43 31.43 14.29 Role Function-Preventive Transformed Score (range: 0-100) 60 30 10 Emotional Function Transformed Score (range: 0-100) 60 0 0 10/18/2023 12/04/2023 12/20/2023 PHQ-9 Score 17 9 13 13 BP 108/74 Pulse 114 Resp 16 LMP 09/18/2023 (Approximate) Patient name: Bethanie Dinero : 1990 ALLERGIES Allergen Reactions Metoclopramide Shortness of Breath, Other: See Comments Anxiety Mold Hives UNIVERSAL PROTOCOL / SAFETY CHECKLIST Procedure: Onabotulinum toxin A for migraine Informed Consent Consent Obtained: Written [place] Protocol A moment to CARE was completed [...] applicable Written Consent Obtained: Written LOT #: [id number] Expiration Date: Month: 8 Year: 2025 Injection Sites Left (Units) Left (Sites) Right (Units) Right (Sites) TOTAL (Units) Barrel Rifler 5 1 5 1 10 Procerus Units: [...] s) ineffective Ibuprofen (Advil, Motrin) ineffective Bethanie Bar has been previously approved for an Oral [...] Goody s) ineffective Ibuprofen (Advil, Motrin) ineffective Third round of botox today. Consider resubmitting for q10 weeks after next visit if still seeing significant wearing off. Consider CGRP monthly injection as next step which was discussed. Megan Kern PA-C Headache Section [facility] December 22, 2023 documented in this encounter [facility] 12-22-2023 Note [facility] 12-22-2023 History of Present illness Narrative [facility] [...] visit. Either the patient or their legal customer sales representative has been informed of the risks and benefits of -- and alternatives to -- treatment through a remote evaluation and consents to proceed with the evaluation remotely. Bethanie Dinero is a 33 year old female seen for follow up. She has a couple of concerns that she would like to discuss. She is 3-4 months post hysterectomy and she recently tried intercourse. She had to stop due to dysparenia. The last one she actually had some bleeding. She says she is not receiving any answers to her questions with the wind turbine installer. She would a referral to a [facility] wind turbine installer for their opinion. Her other issue is bowel movement issues. She says that she was seen by a GI in [place], [place] but due to conflicting schedules she was unable to schedule colonoscopy which was recommended. She would like a referral to a [facility] due to shorter travel distance compared to [place]. Patient lives in [place]. Her main symptoms are painful bowel movements. She also mentioned that she recently had some DNA testing through a commercial company which suggested that she has markers suggestive of EDS. I advised her to contact her wool handler for further workup. She is also currently being evaluated by endocrinology for partial adrenal insufficiency. HISTORY REVIEWED (electronic chart updated): - medical history - medications - allergies REVIEW OF SYSTEMS: As noted in HPI PHYSICAL EXAMINATION: VIDEO EXAM: (if done, performed via video enabled technology) GENERAL: alert and appropriate, in no distress, well-hydrated, well nourished, and happy, smiling, interactive RESPIRATORY: breathing non-labored CHEST: equal chest rise with normal respiratory effort NEUROLOGIC: no obvious deficit ASSESSMENT/PLAN: 1. Dyspareunia, female - ICD9: 625.0, ICD10: N94.10 (primary diagnosis) -will refer to GI per her request - CONSULT TO GYNECOLOGY 2. Rectal tenesmus - ICD9: 787.99, ICD10: R19.8 -will refer to GI per request - CONSULT TO GASTROENTEROLOGY 3. Abdominal cramping - ICD9: 789.00, ICD10: R10.9 -as above - CONSULT TO GASTROENTEROLOGY Noa Gauthier DO documented in this encounter [facility] 12-22-2023 Note [facility] 12-21-2023 Telephone encounter Note Returned call to Pt and scheduled [facility] appointments [facility] 12-21-2023 Miscellaneous Notes Returned call to Pt and scheduled [facility] appointments Pt returned Reji Colmenares's call to schedule [facility] - [phone]. documented in this encounter [facility] 12-20-2023 Note HNO ID: [id number] Author: ?, ?, ? Service: ? Author Type: ? Type: Progress Notes Filed: 12/20/2023 10:07 Note Text: Returned no logs [facility] 12-20-2023 History of Present illness Narrative Returned no logs Called patient to return watch, she stated she was keeping the watch until jan due to rescheduling sleep test. I informed her the watch would not last that long and will need to be returned ACTIGRAPHY DEVICE # [id number] Date shipped out 11/16/2023 [employer] MAIL OUT TRACKING NUMBER [id number] [employer] RETURN TRACKING NUMBER [id number], Aeriel documented in this encounter [facility] 12-15-2023 History of Present illness Narrative Radiology Service Progress Note PATIENT NAME: Bethanie Dinero DATE OF SERVICE: December 15, 2023 TIME: 1:50 PM PATIENT IDENTITY VERIFICATION COMPLETED USING TWO (2) IDENTIFIERS: Name and Date of confirmed by patient verbally. FALL SCREENING: Has the patient had 2 falls in the last year or 1 fall with injury or currently using an Ambulatory Assistive Device (Walker, Cane, Wheelchair, Crutches, etc.)? No PATIENT GENDER DATA: Female. status: : No status: N/A PATIENT RELEVANT IMPLANT DATA REVIEWED: Not Applicable PATIENT PRESENTS WITH AN IMPLANTABLE OR ATTACHED PANELBOARD TANK PUMPER: No RADIOLOGY DEPARTMENT: Ultrasound PERIPHERAL IV DATA: Not applicable SIGNED BY: Jennie Chen RDMS December 15, 2023 1:50 PM documented in this encounter [facility] 12-15-2023 Note [facility] 12-12-2023 Telephone encounter Note Pt returned Reji Colmenares's call to schedule [facility] - [phone]. [facility] 12-12-2023 Note [facility] 12-12-2023 History of Present illness Narrative Images from the original note were not included. [facility] FOLLOW-UP VISIT (VIRTUAL) I have communicated my name and active licensure. The patient's identity and physical location were verified at the time of this visit. Either the patient or their legal customer sales representative has been informed of the risks [...] which included preparing to see the patient, [id number] patient care, completing clinical documentation, obtaining and/or reviewing separately obtained history, performing a medically appropriate examination, counseling and educating the patient/family/caregiver, ordering medications, tests, or procedures. This note was dictated using [employer] speech recognition software and may contain some errors that were a result of the program not accurately transcribing what was dictated. Farooq Mcgraw M.D., M.Sc. Attending Molded Goods Operator [facility] [place], [facility] Office: Appointments: documented in this encounter [facility] 12-05-2023 Telephone encounter Note Lvm for pt stating that Dr. Mcgraw wanted to go over her lab results and we have scheduled her for his next available. Scheduled for 12/12/23 at 8:00AM (virtual visit). Will send mychart message. [facility] 12-05-2023 Miscellaneous Notes Lvm for pt stating that Dr. Mcgraw wanted to go over her lab results and we have scheduled her for his next available. Scheduled for 12/12/23 at 8:00AM (virtual visit). Will send mychart message. documented in this encounter [facility] 12-05-2023 Telephone encounter Note [facility] welcome message sent. [facility] 12-05-2023 Miscellaneous Notes [facility] welcome message sent. documented in this encounter [facility] 12-04-2023 Instructions Rubin Verde MD - 12/04/2023 10:02 PM EDT It was a pleasure to see you today. We addressed the following diagnoses: Chronic back pain, unspecified back location, unspecified back pain laterality (primary encounter diagnosis) Abnormality of gait Functional neurological symptom disorder with mixed symptoms My recommendations are as follows: 12/04/2023 Visit: I will refill flexeril for pain. Referral to FND program with visit with Dr. Dale For more information about FND: [email or web address] I will read about polychlorinated biphenyls and other potential environmental contaminants -- they can cause a broad range of health problems, but I cannot say for sure that they are related or aren't related to your current symptoms. Follow up with me after you see Dr. aDle, unless Dr. Dale recommends that you follow with her. No follow-ups on file. If there are any concerns before your next visit, please call or you can send a message through [employer]. You can also now schedule and select appointments through [employer]. Rubin Verde MD documented in this encounter [facility] 12-04-2023 History of Present illness Narrative [facility] - FOLLOW UP EVALUATION Noa Gauthier DO [address] [place] [address] Dear Noa Gauthier DO: I had the pleasure of seeing Ms. Dinero for follow-up today. As you know she is a 33 year old right-handed female with a history of multiple symptoms since 2020. I have communicated my name and active licensure. The patient's identity and physical location were verified at the time of this visit. Either the patient or their legal customer sales representative has been informed of the risks [...] or other health problems. She lived in [facility] from 1994 to 2002. 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 Questionnaires: Mood/Behavior Depression: PHQ-9 Score: 9 usually representing mild (5-9) depression. Anxiety: EVA-7 Total Score: 7 usually representing mild (5-9) anxiety. Finally, the following table shows the patient's overall global physical and mental health using the PROMIS scale: PROMIS-10 Flowsheet Row Distance Health from 12/04/2023 in Neurological Scientologist Office Visit from 09/25/2023 in Neurology Global [...] y.o. Examining MD: Zacarias Da Silva MD Engraver Optical Frames: None Temp (!) 89.1 F (31.7 C) [...] > 3 (<55) *Source of normal values: [facility] Date/Time: 03/25/2022 10:29 AM Performed by: [...] to verify the correct patient, procedure, equipment, community support professional and site/side marked as required. Physician or [...] neuropathy was normal. She has seen Dr. Caceres in neuormuscular, though where the exam was [...] of cardiovascular disease, liver disease, diabetes (https://pubmed.ncbi.nlm.nih.gov/16 283281/) In nervous system, is associated with impaired cognition, ADHD, ASD (https://www.ncbi.nlm.nih.gov/pmc/a rticles/NQF1553165/). IT is not clear at this time [...] to FND program with visit with Dr. Dale [email or web address] I will read about polychlorinated biphenyls and other potential environmental contaminants -- they can cause a broad range of health problems, but I cannot say for sure that they are related or aren't related to your current symptoms. Follow up with me after you see Dr. Dale, unless Dr. Dale recommends that you follow with her. Level of service: Est level 5 (40-54 min). Time spent 45 min on the day of service, which included preparing to see the patient, tcrd-hl-tbmg patient care, completing clinical documentation, obtaining and/or [...] assistance at all documented in this encounter [facility] 12-04-2023 Note [facility] 12-01-2023 Note [facility] 11-29-2023 History of Present illness Narrative Program_ID:[id number] Access Code: [email or web address] URL: [email or web address] Date: 11-29-2023 Prepared By: Eneida Morales Program [...] compensation, restrictions, or increase in symptoms.- Ongoing [place] in home exercise program.- Ongoing Patient will [...] Patient to be seen for Therapeutic exercise (83002), Neuromuscular re-education (95512), Manual therapy (29357), Therapeutic activities (10714), Self-long-term management (68595), Gait Training (60023), Patient/Family/Caregiver Education, Body Mechanics Training, Functional training [...] Meet Landis PT documented in this encounter [facility] 11-29-2023 Note [facility] 11-22-2023 Telephone encounter Note Advised patient that virtual visits need video and not just phone call. Gave number for her to reschedule. Grisel Kasper RN, BSN [facility] Work Phone: 11-22-2023 Miscellaneous Notes Advised patient that virtual visits need video and not just phone call. Gave number for her to reschedule. Grisel Kasper RN, BSN documented in this encounter [facility] 11-16-2023 Note [facility] 11-08-2023 History of Present illness Narrative From my end it appears that patient did not log into the scheduled visit. At November 08, 2023 11:22 AM I called the patient to check. Call went to voicemail. documented in this encounter [facility] 11-08-2023 Note [facility] 11-02-2023 Telephone encounter Note Notified pharmacy med is once per day as needed [facility] 11-02-2023 Miscellaneous Notes Notified pharmacy med is once per day as needed Jordyn from [employer] was calling for clarification on the prescription for the ammonia lactate cream. Please Advise documented in this encounter [facility] 11-02-2023 Telephone encounter Note Jordyn from [employer] was calling for clarification on the prescription for the ammonia lactate cream. Please Advise [facility] 10-26-2023 History of Present illness Narrative [...] Pressure in Adults: A Report of the [place] College of Cardiology/[place] Heart Association Task Force on Clinical Practice Guidelines. Hypertension. 2018 Rick;71(6):j54-e316. Epub 2016Apr 24. The ABPM should be [...] all individual readings will be scanned into [employer], which can be reviewed under scanned documents. Sylvester Daniels MD documented in this encounter [facility] 10-26-2023 Note [facility] 10-25-2023 Telephone encounter Note PA denied for cochicine. Denial scanned into chart. Message to provider for next steps. Scan on 10/24/2023 12:37 AM by Provider, External, PA-C: Denial - Colchicine Bobby Mcgregor RN [facility] 10-25-2023 Miscellaneous Notes PA denied for cochicine. Denial scanned into chart. Message to provider for next steps. Scan on 10/24/2023 12:37 AM by Provider, External, PA-C: Denial - Colchicine Bobby Mcgregor RN PA for Colchicine denied in [facility] with no reason. PA submitted on CM: Daley: [id number] Bobby Mcgregor RN documented in this encounter [facility] 10-24-2023 History of Present illness Narrative Images from the original note were not included. [facility] UROLOGY NEW [...] w PVR Issa Henriquez MD Associate Staff [facility] Department of Urology I spent a total of 30 minutes on the date of the service which included preparing to see the patient, poyt-mc-ctoj patient care, completing clinical documentation, obtaining and/or reviewing separately obtained history, performing a medically appropriate examination, counseling and educating the patient/family/caregiver, and ordering medications, tests, or procedures. >50% of time was devoted to patient counseling. documented in this encounter [facility] 10-24-2023 Note [facility] 10-24-2023 Note [facility] 10-24-2023 History of Present illness Narrative Bethanie [...] which included preparing to see the patient, yvau-fv-rxcw patient care, completing clinical documentation, obtaining and/or [...] Swollen Glands: No documented in this encounter [facility] 10-23-2023 History of Present illness Narrative Program_ID:[id number] Access Code: [email or web address] URL: [email or web address] Date: 10-23-2023 Prepared By: Eneida Morales Program [...] Care: created on 07/31/23 through 01/15/2024 Re-Eval 10/23/23 Patient able to ambulate with normal gait pattern for community distances with assistive device as needed and without compensation, restrictions, or increase in symptoms.- Ongoing [place] in home exercise program.- Ongoing Patient will [...] Patient to be seen for Therapeutic exercise (28218), Neuromuscular re-education (84232), Manual therapy (77685), Therapeutic activities (49462), Self-long-term management (69170), Gait Training (35613), Patient/Family/Caregiver Education, Body Mechanics Training, Functional training [...] Meet Landis PT documented in this encounter [facility] 10-23-2023 Note [facility] 10-23-2023 Telephone encounter Note PA for Colchicine denied in [facility] with no reason. PA submitted on [facility]: Daley: [id number] Bobby Mcgregor RN [facility] 10-17-2023 Telephone encounter Note Pharmacy escripts requesting the following refill: Last office visit: 09/18/23 Next office visit: None Requested Prescriptions Pending Prescriptions Disp Refills gabapentin (NEURONTIN) 600 mg tablet 180 tablet 1 Sig: Take 1 tablet by mouth two times a day for 180 days. Please review, Hallie Musa LPN [facility] 10-17-2023 Miscellaneous Notes Pharmacy escripts requesting the following refill: Last office visit: 09/18/23 Next office visit: None Requested Prescriptions Pending Prescriptions Disp Refills gabapentin (NEURONTIN) 600 mg tablet 180 tablet 1 Sig: Take 1 tablet by mouth two times a day for 180 days. Please reviewHallie LPN documented in this encounter [facility] 10-16-2023 History of Present illness Narrative Images from the original note were not included. [facility] [place] Department of Cardiovascular Medicine SECTION [...] continues to follow with Dr. Walton and BODS DEVELOPER for POTS/autonomic dysfunction She continues to have [...] normal ECG Confirmed by MD GONZALEZ CHRISTOPHER ([id number]) on 08/23/2023 6:46:17 PM Ejection Fraction: Ejection Fraction: Normal (>50%) Lab Results: ALT Date Value Ref Range Status 08/03/2023 10 7 - 38 U/L Final Glucose Date Value Ref Range Status 08/07/2023 86 74 - 99 mg/dL Final Comment: The [place] Diabetes Association (ADA) provides guidance for cutoff [...] Standards of Medical Care in Diabetes 2016, [place] Diabetes Association. Diabetes Care. 2016.39(Suppl 1). TSH [...] Function tests in . Thyroid, 2019:29:3:412-420. Jg Vazquez, et al. 2017 Guidelines of the [place] Thyroid Association for the Diagnosis and Management [...] and dizziness- next appointment in November with BODS DEVELOPER -she reports varying BP readings and is [...] from olive oil, olives, nuts, and avocado. [place]-3 fats are another heart healthy fat found [...] please let us know. Last visit with [facility] physician: Alan 07/2023 AMBULATORY PATIENT EDUCATION Topic: Education on risk factors and medications. Instruction Provided To: Patient Cognitive Ability: Alert/Oriented Barriers: None Motivation to Learn: Interested Methods of Instruction: Verbal instruction and/or handouts. Patient Leans Best By: Multiple Methods Patient Verbalized: Understanding I personally spent 35 minutes in total time involved in the management and care of this patient. aMrie Stevens APRN.NIK documented in this encounter [facility] 10-16-2023 Note [facility] 10-16-2023 Note [facility] 10-16-2023 History of Present illness Narrative UNIVERSAL [...] applicable. Shantal Georges documented in this encounter [facility] 10-16-2023 Telephone encounter Note Advised pt to reach out to rheumatology per PCP recommendation [facility] 10-16-2023 Miscellaneous Notes Advised pt to reach out to rheumatology per PCP recommendation documented in this encounter [facility] 10-16-2023 Instructions Chris Matthews MA - 10/16/2023 10:01 AM EDT AMBULATORY BLOOD PRESSURE MONITOR Performed automated office BP reading and results downloaded into [email or web address]. Average BP: 109/73 AOBP - Standardized BP [...] [employer] no later than: 10/17/23. Serial number: [id number] [employer] Tracking number [id number] Did the patient receive a blood pressure cuff? Yes Did the patient receive a blood pressure monitor? Yes Did the patient receive a belt? Yes Patient expressed understanding of all above. Patient signed financial release form and aware that they will be billed if the monitor is not returned by the specified date. All questions answered Chris Matthews MA documented in this encounter [facility] 10-16-2023 Note [facility] 10-16-2023 History of Present illness Narrative AMBULATORY BLOOD PRESSURE MONITOR Performed automated office BP reading and results downloaded into [email or web address]. Average BP: 109/73 AOBP - Standardized BP [...] [employer] no later than: 10/17/23. Serial number: [id number] [employer] Tracking number [id number] Did the patient receive a blood pressure cuff? Yes Did the patient receive a blood pressure monitor? Yes Did the patient receive a belt? Yes Patient expressed understanding of all above. Patient signed financial release form and aware that they will be billed if the monitor is not returned by the specified date. All questions answered Chris Matthews MA documented in this encounter [facility] 10-10-2023 Instructions Carrie Lea APRN.CNP - 10/10/2023 12:12 PM EDT Plan: 1) Continue with current medications 2) start physical therapy when possible 3) Recommend heat, moist is best, as tolerated as needed 4) Follow up with COMPOSITION MIXER surgeon for 3 months post-op pain 5) [...] October 10, 2023 documented in this encounter [facility] 10-10-2023 History of Present illness Narrative Follow up Visit Patient Name: Bethanie Dinero MR #: [id number] Age: [age] year old Date: October 06, [...] scheduled 2) Continue with physical therapy - [phone] to schedule 3) Continue with current medications [...] below) 1. Physical therapy: Yes: Where: [facility] , Date Started: 07/31/23, Date Ended: 10/23/23 2. Home exercise program after PT: stretching band 3. Occupational therapy: No 4. A physician supervised home exercise program (HEP): No 5. 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 Medical devises: Yes: [facility]EM[facility] 2. Acupuncture: No 3. Tens unit: No 4. Prescription pain medication: Yes 5. NSAIDS: No Leaf Stripper:Mercedes Gautam MA Patient Entered Questionnaires PROMIS Score [...] was identified.October 10, 2023 by Carrie Lea APRN.STAFF RESEARCH SCIENTIST Current Medications: Flexeril 10mg TID as needed Cataflam 50mg Q8hr as needed Xanax 0.5mg Robaxin 500mg BID as needed - not same time as flexeril Cymbalta 60mg Anticoagulation: none DM: no Physical Therapy: 07/31/23 GFR: 90 TENA: 10/25/22 Carrie Lea APRN.STAFF RESEARCH SCIENTIST PHYSICAL EXAMINATION: [facility] 09/18/2023 General appearance: well appearing, alert, [...] last seen on 10/25/22 by Carrie Lea APRN.NIK for low back pain. She reports she [...] tolerated as needed 4) Follow up with COMPOSITION MIXER surgeon for 3 months post-op pain 5) RTC as needed I spent a total of 28 minutes on the date of the service which included preparing to see the patient, gbsq-hu-gsgl patient care, completing clinical documentation, and performing a medically appropriate examination. Carrie Lea APRN.STAFF RESEARCH SCIENTIST October 10, 2023 documented in this encounter [facility] 10-10-2023 Note [facility] 10-09-2023 Telephone encounter Note Patient requesting a referral to Urology, Last office visit 09/18/23. Patient stated she was diagnosed with neurogenic bladder and has a hard time emptying her bladder. Patient stated she had a hysterectomy a week ago and it has become harder to empty bladder, she noticed she is pushing more trying to empty. Her care has switched to [facility]. Tried to make an appointment with old urologist and they referred her to Telephone Order Clerk that performed procedure. Would like a referral to [facility] Urologist. Order pended for review. [facility] 10-09-2023 Miscellaneous Notes Patient requesting a referral to Urology, Last office visit 09/18/23. Patient stated she was diagnosed with neurogenic bladder and has a hard time emptying her bladder. Patient stated she had a hysterectomy a week ago and it has become harder to empty bladder, she noticed she is pushing more trying to empty. Her care has switched to [facility]. Tried to make an appointment with old urologist and they referred her to Telephone Order Clerk that performed procedure. Would like a referral to [facility] Urologist. Order pended for review. Patient called and indicated she would like a to get a referral for urology. Please advise. documented in this encounter [facility] 10-09-2023 Telephone encounter Note Patient called and indicated she would like a to get a referral for urology. Please advise. [facility] 10-04-2023 History of Present illness Narrative Images from the original note were not included. [facility] for General Neurology Established Patient Virtual Visit Chief Complaint/Issues: Bethanie Dinero is a 33 year old handed right-handed female seen via virtual visit for: Follow up Labile blood pressure This is a virtual visit using [employer] Video Visit. It required patient-provider interaction for the medical decision making as documented below. I have communicated my name and active licensure. The patient's identity and physical location were verified at the time of this visit. 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 [facility] PAST MEDICAL HISTORY Diagnosis Date [...] prior CC echocardiographic exam for comparison. --- Meal Miller 09/28/2023 (Preliminary Only) Enrollment Dates: 08/21/2023-08/25/2023 IRHYTHM [...] up with their primary care physician and/or communications field technician as previously scheduled. STUDY CONCLUSIONS: Abnormal study. [...] Assessment & Plan 10/04/2023 - Neuromuscular, Kelvin Shelton APRN.STAFF RESEARCH SCIENTIST ASSESSMENT Bethanie Dinero is a 33 year [...] and demonstrating mild left atrial dilation. Repeat manager monitoring in 09/2023 demonstrating a single run of [...] has also been following with PCP at [facility] who reportedly diagnosed Bechet's, and is planning to see [facility] rheum for evaluation. She has cardiology follow up scheduled for the abnormal manager monitoring results. We will plan to follow up [...] which included preparing to see the patient, zesq-zl-zruh patient care, completing clinical documentation, obtaining and/or reviewing separately obtained history, and counseling and educating the patient/family/caregiver. Kelvin Shelton APRN.[facility] General Neurology [address] [place]. [address] Appointment: [phone] During our virtual clinical encounter we discussed [...] your PCP/referring physician documented in this encounter [facility] 10-04-2023 Note [facility] 10-03-2023 Telephone encounter Note Called and spoke with patient and informed her that a referral was put in place to consult Rheumatology. 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 [facility] 10-03-2023 Miscellaneous Notes Called and spoke with patient and informed her that a referral was put in place to consult Rheumatology. 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 Summary: MEDICAL RECORDS Pt called stating that her previous provider at [facility] Diagnosed her with Behcets Syndrome. (See attached doc). The medical records from [facility] that we have for pt were faxed of 08/2022 before the dx 12/2022 ,therefore we don't have clinical documentation of the dx. Pt would like to see Rheumatology for this dx and needs it to be updated in her chart. Does pt need new medical records faxed over with the updated dx from [facility]? Please let pt know. Thank you. documented in this encounter [facility] 10-03-2023 Telephone encounter Note Summary: MEDICAL RECORDS Pt called stating that her previous provider at [facility] Diagnosed her with Behcets Syndrome. (See attached doc). The medical records from [facility] that we have for pt were faxed of 08/2022 before the dx 12/2022 ,therefore we don't have clinical documentation of the dx. Pt would like to see Rheumatology for this dx and needs it to be updated in her chart. Does pt need new medical records faxed over with the updated dx from [facility]? Please let pt know. Thank you. [facility] 09-29-2023 Instructions Peggy Gilmore APRN.CNP - [...] or you can send a message through [employer]. You can also now schedule and select appointments through [employer]. Peggy Gilmore APRN.NIK documented in this encounter [facility] 09-29-2023 Note [facility] 09-29-2023 History of Present illness Narrative [facility] - FOLLOW UP EVALUATION - VIRTUAL VISIT Noa Gauthier DO [address] [place] [address] Dear Noa Gauthier DO: I had the pleasure of seeing Ms. Dinero for follow-up today. As you know she is a 33 year old right-handed female with a history of multiple symptoms since 2020. She is seen alone. We had a visit using: [employer] I have communicated my name and active licensure. The patient's identity and physical location were verified at the time of this visit. Either the patient or their legal customer sales representative has been informed of the risks [...] y.o. Examining MD: Zacarias Da Silva MD Engraver Optical Frames: None Temp (!) 89.1 F (31.7 C) [...] > 3 (<55) *Source of normal values: [facility] Date/Time: 03/25/2022 10:29 AM Performed by: [...] to verify the correct patient, procedure, equipment, community support professional and site/side marked as required. Physician or [...] neuropathy was normal. She has seen Dr. Caceres in neuormuscular, though where the exam was [...] Peggy Gilmore APRN.NIK documented in this encounter [facility] 09-27-2023 Miscellaneous Notes Update left on VM. Phone number provided. documented in this encounter [facility] 09-25-2023 History of Present illness Narrative [...] days/month: 0 (0 headache-free hours) Migraine severity: 10/10 After treatment with Onabotulinum Toxin A: Number [...] for migraine Informed Consent Consent Obtained: Written [place] Protocol A moment to CARE was completed [...] applicable Written Consent Obtained: Written LOT #: [id number] Expiration Date: Month: 6 Year: 2025 Injection Sites Left (Units) Left (Sites) Right (Units) Right (Sites) TOTAL (Units) Barrel Rifler 5 1 5 1 10 Procerus Units: [...] Motrin) ineffective Megan Kern PA-C Headache Section [facility] September 25, 2023 documented in this encounter [facility] 09-25-2023 Note [facility] 09-25-2023 Instructions Megan Kern PA-C - 09/25/2023 [...] next Botox Injection documented in this encounter [facility] 09-22-2023 Miscellaneous Notes Pharmacy escripts requesting the following refill: Last office visit: 09/18/23 Next office visit: None Requested Prescriptions Pending Prescriptions Disp Refills ALPRAZolam (XANAX) 0.5 mg tablet Sig: Take 0.5 tablets by mouth two times a day as needed for anxiety. Please review, Hallie Musa LPN documented in this encounter [facility] 09-21-2023 Miscellaneous Notes Pharmacy escripts requesting [...] Pastora Brennan MA documented in this encounter [facility] 09-18-2023 Note [facility] 09-18-2023 History of Present illness Narrative DISTANCE [...] visit. Either the patient or their legal customer sales representative has been informed of the risks [...] Noa Gauthier DO documented in this encounter [facility] 09-16-2023 Note HNO ID: [id number] Author: NOA GAUTHIER DO Service: ? Author Type: Physician Type: Progress Notes Filed: 09/16/2023 17:10 Note Text: The appointment was cancelled for this patient. Noa Gauthier DO [facility] 09-16-2023 History of Present illness Narrative The appointment was cancelled for this patient. Noa Gauthier DO documented in this encounter [facility] 09-14-2023 Note HNO ID: [id number] Author: CHRIS GATES MD Service: ? Author [...] bigeminy and trigeminy present, on Zio by [employer] in 08/2023). [facility] Urological and [facility] Chris Larkin MD Staff Nephrology and Hypertension [facility] Pager# [phone] [facility] 09-14-2023 History of Present illness Narrative Summary: [...] to 08/07/23 with dizziness, lightheadedness, and hypotension. [facility] Chris Larkin MD Staff Nephrology and Hypertension [facility] Pager# [phone] documented in this encounter [facility] 09-06-2023 Instructions Kelvin Pratt APRN.NIK - 09/06/2023 10:25 AM EDT Contact information for sleep disorders center: For questions regarding your care call [phone] option X 5 To schedule an appointment with the sleep center call [phone] Sleep disorders center fax # [phone] documented in this encounter [facility] 09-06-2023 History of Present illness Narrative Images from the original note were not included. [facility] Sleep Disorders Center Follow up/ Established [...] Raul Truong DO Sleep Medicine Fellow 08/04/22 [facility] [place] STAFF PHYSICIAN NOTE OF PERSONAL INVOLVEMENT IN [...] visit. Either the patient or their legal customer sales representative has been informed of the risks [...] talk and not able to, trying to miner pick her phone, voice sounded weird when trying [...] was a toddler. One time went to [employer] around age 6 and that night plugged [...] Abnormal behaviors/movements during sleep 05/24/2022 10/04/2022 07/13/2023 Norden Sleepiness Scale Score 14 (present daytime sleepiness) [...] ORAL) Take by mouth. cyanocobalamin/folic acid (VITAMIN Z83-BCPIV ACID INJECTION) by INJECTION(UNSPECIFIED PARENTERAL ROUTES) route. [...] them with you to give to the non destructive evaluation technician. - A urine tox screen will [...] time: 53 minutes documented in this encounter [facility] 09-06-2023 Note [facility] 09-04-2023 Note [facility] 09-04-2023 History of Present illness Narrative Images from the original note were not included. [facility] - NEW VISIT (VIRTUAL) I have communicated my name and active licensure. The patient's identity and physical location were verified at the time of this visit. Either the patient or their legal customer sales representative has been informed of the risks [...] ORAL) Take by mouth. cyanocobalamin/folic acid (VITAMIN A11-XIXJP ACID INJECTION) by INJECTION(UNSPECIFIED PARENTERAL ROUTES) route. [...] which included preparing to see the patient, nfqo-za-hedd patient care, completing clinical documentation, obtaining and/or reviewing separately obtained history, performing a medically appropriate examination, counseling and educating the patient/family/caregiver, ordering medications, tests, or procedures. This note was dictated using [employer] speech recognition software and may contain some errors that were a result of the program not accurately transcribing what was dictated. Farooq Mcgraw M.D., M.Sc. Attending Molded Goods Operator [facility], [facility] Office: Appointments: documented in this encounter [facility] 08-31-2023 Miscellaneous Notes Patient states that hospital did recommend endocrinology consult but she has not set that up. States she has decreased activity due to pain, sore muscles, and low tolerance. Grisel Kasper RN, BSN documented in this encounter [facility] 08-21-2023 Note HNO ID: [id number] Author: NOA GAUTHIER DO Service: ? Author Type: Physician Type: Progress Notes Filed: 08/21/2023 10:18 Note Text: The appointment was cancelled for this patient. Noa Gauthier DO [facility] 08-21-2023 History of Present illness Narrative The appointment was cancelled for this patient. Noa Gauthier DO documented in this encounter [facility] 08-16-2023 Note [facility] 08-16-2023 History of Present illness Narrative DISTANCE [...] visit. Either the patient or their legal customer sales representative has been informed of the risks and benefits of -- and alternatives to -- treatment through a remote evaluation and consents to proceed with the evaluation remotely. Bethanie Dinero is a 33 year old female seen for [facility] F/U. She presented to ED for [...] Noa Gauthier DO documented in this encounter [facility] 08-08-2023 Miscellaneous Notes Okay thank you for forwarding, she was admitted so they addressed for her it looks like. Patient replying to Kelvin's message and giving her side of the story. Grisel Kasper RN, BSN documented in this encounter [facility] 08-07-2023 Note HNO ID: [id number] Author: BRITT BARRAGAN APRN.NIK Service: Hospital Medicine Author Type: Nurse Practitioner Type: Progress Notes Filed: 08/07/2023 14:19 Note Text: DEPARTMENT OF HOSPITAL MEDICINE PROGRESS NOTE SERVICE DATE: 08/07/2023 SERVICE TIME: 2:19 PM Hospital Medicine/Primary Attending: Allison Chanel MD NIGHT AND WEEKEND COVERAGE: ROBERTA COVERAGE: Days: [phone], please contact via ezzai - how to arabia Nights: [phone] - 3rd floor: please page CC Hospitalist night cover [phone] - 4W: please page CC Hospitalist night cover #[phone] - 5th floor: please page CC Hospitalist night cover #[phone] - SDU (17:00 - 19:00): Please page #[phone] - SDU (19:00 - 07:00): Please call [facility] at [phone] Subjective INTERVAL HPI: eating in bed, appears [...] and Airways Line Duration Peripheral 08/06/[address] [facility] Left Forearm 20 Gauge 1 day Reviewed [...] mood stabilizer. She will also benefit from twill cutter psychothera (more content not included)... [facility] 08-06-2023 Note HNO ID: [id number] Author: ALLISON CHANEL MD Service: Hospital Medicine Author Type: Physician Type: Progress Notes Filed: 08/06/2023 11:30 Note Text: DEPARTMENT OF HOSPITAL MEDICINE PROGRESS NOTE SERVICE DATE: 08/06/2023 SERVICE TIME: 11:10 AM Hospital Medicine/Primary Attending: Allison Chanel MD NIGHT AND WEEKEND COVERAGE: [place] COVERAGE: Days: [phone], please contact via [email or web address] Nights: - 3rd floor: please page CC Hospitalist night cover [phone] - 4W: please page CC Hospitalist night cover #[phone] - 5th floor: please page CC Hospitalist night cover #[phone] - SDU (17:00 - 19:00): Please page #[phone] - SDU (19:00 - 07:00): Please call [facility] at [phone] Subjective INTERVAL HPI: multiple complains during the [...] (1.70m) Wt 155 lb (70.3kg) SpO2 100% [facility] 07/22/2023 BMI 24.27 kg/(m2). O2 Therapy: Room Air Physical Exam Performed Awake, alert in no distress mucosa moist lungs clear to auscultation cardiac sounds rrr abdomen soft bs ok no tender no leg edema. Motor 5/5 upper and lower. Lines, Drains, and Airways Line Duration Peripheral 08/06/[address] [facility] Left Forearm 20 Gauge <1 day Reviewed [...] mood stabilizer. She will also benefit from correction psychotherapy as outpatient. Neuropathy Migraine Chest pain [...] setting of current (more content not included)... [facility] 08-06-2023 Note HNO ID: [id number] Author: BRUNO GUARDADO, QUYNH Service: Nursing Author Type: Registered Nurse Type: Progress Notes Filed: 08/06/2023 09:57 Note Text: Patient states she is nauseous and has vomited. Patient ordered zofran PRN. Zofran given. Will continue to monitor. [facility] 08-06-2023 Note HNO ID: [id number] Author: SUNIL LUJAN PA-C Service: Hospital Medicine Author Type: Physician Customer Care Manager Type: Plan of Care Filed: 08/06/2023 03:04 [...] in past Currently reports very slight frontal TAN. Objective: BP 102/60 Pulse (!) 57 Temp [...] DATE: August 06, 2023 TIME: 2:47 AM [facility] 08-05-2023 Note HNO ID: [id number] Author: JOO ALCANTAR MD Service: Hospital Medicine Author Type: Physician Type: Progress Notes Filed: 08/05/2023 14:05 Note Text: DEPARTMENT OF HOSPITAL MEDICINE PROGRESS NOTE SERVICE DATE: 08/05/2023 SERVICE TIME: 1:57 PM Hospital Medicine/Primary Attending: Joo Alcantar MD NIGHT AND WEEKEND COVERAGE: [place] COVERAGE: Days: [phone], please contact via [employer] Nights: [phone] - 3rd floor: please page Hospitalist night cover [phone] - 4W: please page Hospitalist night cover #[phone] - 5th floor: please page Hospitalist night cover #[phone] - SDU (17:00 - 19:00): Please page #[phone] - SDU (19:00 - 07:00): Please call [facility]ospital at [phone] Subjective INTERVAL HPI: Patient seen and examined. [...] Drains, and Airways Line Duration Peripheral 08/03/231930 [facility] Short Left Antecubital 20 Gauge 1 day [...] The pituitary gland (more content not included)... [facility] 08-04-2023 Note HNO ID: [id number] Author: JOO ALCANTAR MD Service: Hospital Medicine [...] report. We will continue monitoring the patient. [facility] 08-04-2023 Note HNO ID: [id number] Author: CESAR VILLASEÑOR DO Service: Endocrinology Author [...] contact us for recommendation. Cesar Villaseñor DO [facility] 08-03-2023 Note HNO ID: [id number] Author: CARLA HOFFMAN RT(R) Service: Radiology Author Type: Engraver Optical Frames Type: Progress Notes Filed: 08/03/2023 19:01 Note [...] PATIENT PRESENTS WITH AN IMPLANTABLE OR ATTACHED PANELBOARD TANK PUMPER: No RADIOLOGY DEPARTMENT: General X-ray: Exam(s) Completed: Chest X-Ray PERIPHERAL IV DATA: Not applicable SIGNED BY: RT Madelaine(R) August 03, 2023 7:01 PM [facility] 08-03-2023 Miscellaneous Notes Patient was transferred to the office by Nurse natural resource economist. Patient called requesting lab results. Patient was [...] our policy. Patient began yelling and this process description writer. Patient stated that she will dies before all of the results are available or a response is received. Patient was again advised that a message was sent to the provider and that a response has not yet been received. Patient was also advised that nursing was not available. Patient then yelled at this process description writer using vulgar language to tell me to Shut up and then slammed the phone down. Type of results requested: lab Patient of Kelvin Shelton CNP Patient states is concerned about results of a few test and is requesting a call to discuss. documented in this encounter [facility] 08-03-2023 Miscellaneous Notes Ms. Dinero is concerned about her lab results that was ordered by Kelvin Shelton CNP. I conf her to the [facility]'s office [phone]. documented in this encounter [facility] 08-03-2023 Instructions Kelvin Shelton APRN.CNP - 08/03/2023 12:04 PM EST 1) Labs (early 6-8AM) 2) QSART 3) Ambulatory BP monitoring -Reach out after monitor for medication adjustment 4) cardiac monitor technician 5) Follow up with sleep medicine 6) Reduce metoprolol ER to half tablet (12.5 mg) and reach out to cardiology. documented in this encounter [facility] 08-03-2023 History of Present illness Narrative Images from the original note were not included. [facility] General Neurology Follow-Up/Established Patient Visit Chief Complaint/Issues: Bethanie Dinero is a 33 year old handed right-handed female seen in the [facility] for General Neurology for: Follow up Labile [...] neuropathy was normal. She has seen Dr. Caceres in neuormuscular, though where the exam was [...] at some point in future we should tribal back and discuss/consider the possibility of FND again. The following are the current problems noted and addressed during this visit: Chronic back pain, unspecified back location, unspecified back pain laterality (primary encounter diagnosis) Abnormality of gait Weakness Fasciculations Pots (postural orthostatic tachycardia syndrome) Hypotension, unspecified hypotension type --- Home orthostatics via [employer] Message 07/14/2023: BP Day 1 9am jul [...] or sweaty with this. She notices between 2499-8565 the BP is very low. The BP [...] at times. She feels dizziness, muscle locking. [facility] PAST MEDICAL HISTORY Diagnosis Date [...] ORAL) Take by mouth. cyanocobalamin/folic acid (VITAMIN T88-KFYTC ACID INJECTION) by INJECTION(UNSPECIFIED PARENTERAL ROUTES) route. [...] up with their primary care physician and/or communications field technician as previously scheduled. STUDY CONCLUSIONS: Abnormal study. [...] minor abnormality without clear clinical significance. --- [facility] 07/17/2022 IMPRESSION/RECOMMENDATIONS: 1. Primary snoring. Although the [...] & Plan 08/03/2023 - Neuromuscular, Kelvin Shelton APRN.STAFF RESEARCH SCIENTIST ASSESSMENT Bethanie Dinero is a 33 year [...] out after monitor for medication adjustment 4) cardiac monitor technician 5) Follow up with sleep medicine 6) [...] which included preparing to see the patient, tjns-ci-oezf patient care, completing clinical documentation, obtaining and/or reviewing separately obtained history, performing a medically appropriate examination, counseling and educating the patient/family/caregiver, and ordering medications, tests, or procedures. Kelvin Shelton APRN.CNP General Neurology [address] [place] [address] Appointment: [phone] During our face to face clinical encounter [...] your PCP/referring physician documented in this encounter [facility] 08-03-2023 Note [facility] 08-02-2023 Miscellaneous Notes Reason for Call: Patient [...] face Protocols used: Heart Rate and Heartbeat Shiiaexza-UZIBL-EL documented in this encounter [facility] 08-01-2023 Note [facility] 08-01-2023 History of Present illness Narrative Chief [...] ORAL) Take by mouth. cyanocobalamin/folic acid (VITAMIN S93-EHMBC ACID INJECTION) by INJECTION(UNSPECIFIED PARENTERAL ROUTES) route. [...] for chronic conditions. documented in this encounter [facility] 07-31-2023 History of Present illness Narrative Program_ID:[id number] Access Code: [email or web address] URL: [email or web address] Date: 07-31-2023 Prepared By: Eneida Morales Program [...] without compensation, restrictions, or increase in symptoms. [place] in home exercise program. Patient will decrease [...] Planned: 8 Planned Treatment Interventions: Therapeutic exercise (14928), Neuromuscular re-education (36978), Manual therapy (06478), Therapeutic activities (40187), Self-long-term management (19106), Gait Training (83414), Patient/Family/Caregiver Education, Body Mechanics Training PLAN FOR [...] and blood pressure symptoms. She did see communications field technician and nuero recently and is undergoing studies [...] Demonstration TREATMENT: PT Treatment Interventions: Therapeutic Exercise, Self-Retirement Management Evaluation Evaluation Therapeutic Exercise: 1: *seated heel and toe raises c eccentric lowering x10 2: *LAQ c eccentric control x10 3: *seated alt LE august x10 B 4: education through diagnosis, prognosis, [...] therapeutic exercises was facilitated with verbal cuing. Self-Retirement Management: 1: importance of vitals assessment through [...] Time (minutes): 41 Session Start Time : 0957 Session Stop Time : 1038 Eneida Morales, PT, DPT documented in this encounter [facility] 07-31-2023 Note [facility] 07-27-2023 Note [facility] 07-27-2023 History of Present illness Narrative Images from the original note were not included. [facility] [place] Department of Cardiovascular Medicine SECTION [...] ORAL) Take by mouth. cyanocobalamin/folic acid (VITAMIN R33-YPLMP ACID INJECTION) by INJECTION(UNSPECIFIED PARENTERAL ROUTES) route. [...] Patient Verbalized: Understanding documented in this encounter [facility] 07-26-2023 History of Present illness Narrative [...] visit. Either the patient or their legal customer sales representative has been informed of the risks [...] ORAL) Take by mouth. cyanocobalamin/folic acid (VITAMIN N09-EQLLI ACID INJECTION) by INJECTION(UNSPECIFIED PARENTERAL ROUTES) route. [...] and assume there are 5 lumbar-type vertebrae. Wash Tank Tender: AIDEN Transcribe Date/Time: Jan 25 2023 2:35P Dictated [...] spontaneous and fluent without dysarthria. Short and twill cutter memory, cognition and general fund of knowledge [...] 10 minutes Megan Kern PA-C Headache Section [facility] July 26, 2023 documented in this encounter [facility] 07-26-2023 Note [facility] 07-26-2023 Miscellaneous Notes Patient sending in BPs for review in upcoming appointment as shs is concerned about how low diastaltic BP is. States she does not need a reply. Grisel Kasper RN, BSN documented in this encounter [facility] 07-24-2023 Miscellaneous Notes Advised patient that all messages are sent to Kelvin to review and guide response. Instructed her that her concerns will be addressed at upcoming appointment. Grisel Kasper RN, BSN documented in this encounter [facility] 07-24-2023 Note [facility] 07-24-2023 History of Present illness Narrative Episode Visit Count: 1 Therapist That Will Accept/Oversee The Plan Of Care: Nico Denney MA CCC-BUDGET RECORD CLERK Start of Care Date: 07/24/23 Onset Date: 07/21/23 Plan of Care Certification Date: 07/24/23 Next Certification Due Date: 09/22/23 Patient Identified by Name and Date of : Yes [facility] SPEECH, SWALLOW, [...] Patient / Caregiver Education/ Training, Voice Training (98168), Dysphagia Reduction Training (54391) Current Frequency: 1 visit Duration: 1 visit PLAN FOR NEXT VISIT: videostrobscopy + FEES with [facility] Patient demonstrates good understanding of [...] Evaluation. Research by Dr. Kelvin Tobias at [facility] demonstrates an EAT-10 cut score of 3 [...] water screen + TOMASS details Clinical Swallow Ursa Swallow Protocol: Pass Oral Pharyngeal Swallow Assessment: [...] States/Identifies TREATMENT: Evaluation: Eval Speech Sound Production (04025) Behavior Quality analysis Voice (40537) Swallow Eval Func (94308) Billing: Eval Speech Sound Production (70771), Behavior Quality analysis Voice (05535), and Clinical Swallow Evaluation (42231) Total time / Length of visit: 60 minutes Session Start Time : 1315 Session Stop Time : 1415 Nico Denney CCC-BUDGET RECORD CLERK documented in this encounter [facility] 07-20-2023 Miscellaneous Notes Addressed in another encounter. Grisel Kasper RN, BSN Patient sending in letter from her PCP stating her BP cuff is calibrated and asking for GI consult at [facility]. ALBAN Neff RN documented in this encounter [facility] 07-20-2023 Miscellaneous Notes Patient giving update on episode that happened last evening. Has appointment with her PCP today. ALBAN Neff RN documented in this encounter [facility] 07-18-2023 Miscellaneous Notes Patient states she feels her BP cuff is accurate but can have it assessed. States she has a history of occasional high BP with screenshots sent in. ALBAN Neff RN documented in this encounter [facility] 07-17-2023 Miscellaneous Notes Patient sending in orthostatic vitals for review. ALBAN Neff RN documented in this encounter [facility] 07-13-2023 Miscellaneous Notes Patient states she cannot do the orthostatic vitals over 3 days as requested due to passing out at 5 minutes of standing. Sending in the vitals she did take. States she lives alone and does not feel this is safe to do without someone with her. ALBAN Neff RN documented in this encounter [facility] 07-10-2023 Note [facility] 06-30-2023 Note [facility] 06-19-2023 Note [facility] 06-15-2023 Note EXAMINATION: PELVIC ULTRASOUND; DOPPLER EVALUATION [...] amount of free fluid in the cul-de-sac. [facility] 06-15-2023 Note EXAMINATION: PELVIC ULTRASOUND; [...] amount of free fluid in the cul-de-sac. [facility] 06-15-2023 Note EXAMINATION: PELVIC ULTRASOUND; [...] by: Vinod Ponce MD 06/15/23 Final result [facility] 06-13-2023 Note [facility] 04-20-2023 Miscellaneous Notes gy documented in this encounter [facility] 03-30-2023 Miscellaneous Notes Reason for Call:Low back pain, 6/10 and numbness in feet and unable to empty bladder completely. Is feeling weak today and when stands gets dizzy. Patient states she is at risk for cauda equina syndrome. Outcome:Recommendation to go to ED now. Patient will go to [place] ED. Family will drive her. Reason for Disposition [1] Unable to urinate (or only a few drops) > 4 hours AND [2] bladder feels very full (e.g., palpable bladder or strong urge to urinate) Protocols used: Back Jdej-URQSP-DR documented in this encounter [facility] 02-28-2023 Instructions Rubin Verde MD - [...] with physician as well as psychologist. Call [phone] to schedule with physician and [phone] to schedule with psychology (Dr. Kusum Belle). Follow up with me in 4 months, virtual visit Return at or around: 06/30/23 If there are any concerns before your next visit, please call or you can send a message through [employer]. You can also now schedule and select appointments through [employer]. Rubin Verde MD documented in this encounter [facility] 02-28-2023 History of Present illness Narrative [facility] - FOLLOW UP EVALUATION Kavita Gama APRN - STAFF RESEARCH SCIENTIST [address] [address] Dear Kavita L Lanette, [employer] - STAFF RESEARCH SCIENTIST: I had the pleasure of seeing Ms. Dinero for follow-up today. As you know she is a 32 year old right-handed female with a history of multiple symptoms since 2020. I have communicated my name and active licensure. The patient's identity and physical location were verified at the time of this visit. Either the patient or their legal customer sales representative has been informed of the risks and benefits of -- and alternatives to -- treatment through a remote evaluation and consents to proceed with the evaluation remotely. Subjective Previous Plan-01/30/2023 Visit: Neuromuscular consultation, as scheduled PT as scheduled Follow up TBD, I will discuss with Dr. Caceres after the neuromuscular visit later this week. [...] neuropathy was normal. She has seen Dr. Caceres in neuormuscular, though where the exam was [...] PROMIS-10 Flowsheet Row Appointment from 02/09/2023 in [facility] Most recent reading at 12/12/2022 5:19 PM Appointment from 12/15/2022 in [facility] Most recent reading at 12/12/2022 [...] y.o. Examining MD: Zacarias Da Silva MD Engraver Optical Frames: None Temp (!) 89.1 F (31.7 C) [...] > 3 (<55) *Source of normal values: [facility] Date/Time: 03/25/2022 10:29 AM Performed by: [...] to verify the correct patient, procedure, equipment, community support professional and site/side marked as required. Physician or [...] neuropathy was normal. She has seen Dr. Caceres in neuormuscular, though where the exam was [...] with physician as well as psychologist. Call [phone] to schedule with physician and [phone] to schedule with psychology (Dr. Kusum Belle). Follow up with me in 4 months, virtual visit Return at or around: 06/30/23 Level of service : 42567 ( 30-39 min). Time spent 30 min on the day of service, which included preparing to see the patient, tbsf-da-wubo patient care, completing clinical documentation, obtaining and/or [...] Rubin Verde MD documented in this encounter [facility] 02-02-2023 History of Present illness Narrative [facility] [place] Patient Visit Note Consultation [...] providers including neurology and neurology providers at [facility] in particular (including referring movement disorders [...] to be somewhat confounded. 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 She describes escalating [...] bilaterally. Gait narrow-based and fairly steady in [place] mood, with some unsteadiness with tremulousness noted [...] infarct, mass effect or evidence of hemorrhage. DMC/max INTERNAL RECORDS: The patient's electronic medical record [...] 41 (L) MRI CERVICAL AND THORACIC SPINE LATOYA (Acc#[id number]- [facility]) (Order [id number]) Patient Info Patient Name Sex Bethanie Crain ([id number]) Female 1990 01/25/2023 2:46 PM - Radiology, [...] providers including neurology and neurology providers at [facility] in particular (including referring movement disorders neurology provider Dr. Verde, Dr. Vinson in general neurology, and autonomic neurology Kelvin Shelton, [facility]) and they are extensive notes regarding [...] with her S90 autonomic/ordering provider here, Kelvin Shelton CNP) Vitamin B12 level ~400, which may indicate relative deficiency. You may start vitamin B12 supplements [available tzxc-wma-afazkxz] orally, according to the following regimen: Vitamin [...] glass, twice daily - Magnesium Oxide (available gwwz-huy-dqmcwza) 400 mg by mouth twice daily, as needed - Gentle muscle stretching routine, especially before bedtime (see below) Description of the stretching exercises (See details at http://www.sciencedirect.com/scienc e/article/pii/V5124092353600455) CALF STRETCH IN STANDING Starting position: Standing [...] will be communicated to the patient via telephone/[employer]. Patient to call office if not contacted after expected testing turnaround time. To aid with communication, patients (and primary care physicians) can sign up for [employer] (or [employer]), which allows online appointment scheduling, transmission of labs results and chart notes, and secure email communication. To establish either account, visit [email or web address]. The duration of this appointment visit was 65 minutes of hzhi-sy-ybxz time with the patient, in addition to 35 minutes spent with documentation comprising this note. At least 50% of lsgf-mw-xomq time was spent in counseling, explanation of diagnosis, planning of further management, and coordination of care. Karel Caceres MD Neuromuscular Medicine Staff Referring provider: Dr. Rubin Verde [address] [facility] [address] Primary care provider: Kavita Gama, SHAY - STAFF RESEARCH SCIENTIST [address] [place] [address] Answers submitted by the patient for this [...] no help needed documented in this encounter [facility] 02-02-2023 Instructions Karel Caceres MD - 02/02/2023 1:43 PM EDT Images from the original note were not included. Vitamin B12 level ~400, which indicates relative deficiency. You may start vitamin B12 supplements [available zzpb-wbj-lvqrkln] orally, according to the following regimen: Vitamin [...] glass, twice daily - Magnesium Oxide (available mrtn-sgk-rvrokiu) 400 mg by mouth twice daily, as needed - Gentle muscle stretching routine, especially before bedtime (see below) Description of the stretching exercises (See details at http://www.sciencedirect.com/scienc e/article/pii/S4728303554355612) CALF STRETCH IN STANDING Starting position: Standing [...] at the ankles. documented in this encounter [facility] 01-30-2023 History of Present illness Narrative [facility]ORD[facility] - FOLLOW UP EVALUATION Kavita Gama [address] [facility] [address] Dear Kavita Gama: I had the pleasure of seeing Ms. Dinero for follow-up today. As you know she is a 32 year old right-handed female with a history of multiple symptoms since 2020. She is seen alone. We had a visit using: [employer] I have communicated my name and active licensure. The patient's identity and physical location were verified at the time of this visit. Either the patient or their legal customer sales representative has been informed of the risks [...] small fiber sensory neuropathy. Scheduled with Dr. Caceres, neuromuscular, later this week. She hasn't started [...] PROMIS-10 Flowsheet Row Appointment from 12/15/2022 in [facility] Most recent reading at 12/12/2022 [...] y.o. Examining MD: Zacarias Da Silva MD [employer]: None Temp (!) 89.1 F (31.7 C) [...] > 3 (<55) *Source of normal values: [facility] Date/Time: 03/25/2022 10:29 AM Performed by: [...] to verify the correct patient, procedure, equipment, community support professional and site/side marked as required. Physician or [...] up TBD, I will discuss with Dr. Caceres after the neuromuscular visit later this week. Level of service : 83692 ( 30-39 min). Time spent 30 min on the day of service, which included preparing to see the patient, oudm-kk-bpma patient care, completing clinical documentation, obtaining and/or [...] Rubin Verde MD documented in this encounter [facility] 01-25-2023 History of Present illness Narrative [...] 2023 1:46 PM documented in this encounter [facility] 01-10-2023 History of Present illness Narrative [...] Care Visit completed when applicable. Allyson Knight mail handler sorter Monica Mcgraw documented in this encounter [facility] 01-04-2023 History of Present illness Narrative Skin Biopsy Procedure Note Skin Biopsy Accession Number: [id number] Biopsy Date: 01/04/2023 Referring physician: Kelvin Shelton [...] All specimen containers correctly labeled. DANNY Bradshaw APRN.STAFF RESEARCH SCIENTIST Sign in Pt ID verified with patient. [...] Procedure Note Procedure confirmed with provider and community support professional. Yes, right leg 2 skin biopsies. The [...] home. Specimens were labeled and sent to [facility] Cutaneous Nerve Laboratory. Procedure was performed by: Alexandra Markham APRN.NIK Assistance in supply/equipment preparation performed by: DANNY Bradshaw Sign out is complete. documented in this encounter [facility] 12-29-2022 Miscellaneous Notes Called pt at [...] I called her obgyn provider's office at [phone] (Dr. Michelle Frey's office) to advise her hysterectomy to be rescheduled. I left a message with Dr. Peraza's care team assistant. Rubin Verde MD PhD Associate Staff, Movement Disorders [place] [facility] documented in this encounter [facility] 12-26-2022 Miscellaneous Notes Reviewed with Dr. Montanez. Likely anatomical variant however should have [facility] radiologist review and assess for venous congestion. Megan Kern PA-C December 26, 2022 12:44 PM documented in this encounter [facility] 12-26-2022 Miscellaneous Notes Patient sending in MRI results. Available via Care Everywhere but not all images are viewable. Grisel Kasper RN, BSN documented in this encounter [facility] 12-21-2022 History of Present illness Narrative She has sent in two videos demonstrating left calf muscle movements that are suggestive of fasciculations. I have reviewed the videos. [facility] providers, please reach out to me and I can share the videos with you securely if needed. Rubin Verde MD PhD Associate Staff, Movement Disorders [facility] for Neurological Scientologist [facility]MOVEMENT DISORDERS [facility] - NEW PATIENT EVALUATION Primary Care Provider: Kavita Gama [facility] [address] Dear Kavita Gama: I had the pleasure [...] twitching. She has had an EMG at [facility] in 03/2022 that did not identify abnormalities [...] PROMIS-10 Flowsheet Row Appointment from 12/15/2022 in [facility] Most recent reading at 12/12/2022 [...] level of education. Thinks date is the 17 She has a lot of trouble doing [...] adductor present. Ankle clonus absent. Coordination Right: Rldscg-kw-zugz normal. Rapid alternating movement abnormality: Svcr-ea-oxoj normal.Left: Huvtye-dd-fcbs normal. Rapid alternating movement abnormality: Ocmq-dk-gjao normal. JENAE tested: R L Finger tapping [...] y.o. Examining MD: Zacarias Da Silva MD [employer] Frames: None Temp (!) 89.1 F (31.7 C) [...] > 3 (<55) *Source of normal values: [facility] Date/Time: 03/25/2022 10:29 AM Performed by: [...] to verify the correct patient, procedure, equipment, community support professional and site/side marked as required. Physician or [...] muscle twitching. This can be organized via [employer]. MRI CT spine Wo contrast for suspicion [...] service: Est level 5 + 2 units 80709 (>55 min, [id number] for each 15 min > 40). Time spent 75 min on the day of service, which included preparing to see the patient, onpk-sp-kpou patient care, completing clinical documentation, obtaining and/or [...] Rubin Verde MD documented in this encounter [facility] 12-21-2022 Instructions Rubin Verde MD - [...] muscle twitching. This can be organized via [employer]. MRI CT spine Wo contrast for suspicion [...] or you can send a message through [employer]. You can also now schedule and select appointments through [employer]. Rubin Verde MD documented in this encounter [facility] 12-15-2022 Miscellaneous Notes Addended by: KEVLIN SHELTON on: 12/15/2022 12:18 PM Modules accepted: Orders documented in this encounter [facility] 12-15-2022 Instructions Kelvin Shelton APRN.CNP - 12/15/2022 12:01 PM EDT 1) Labs -I will order B12 injections, PCP to teach you to complete injections. 2) Send me: -Minute by minute data tilt -Repeat MRI -My 3) Complete as ordered: -Skin biopsy -Autonomic reflex with tilt -Audiogram -ENT consult documented in this encounter [facility] 12-15-2022 History of Present illness Narrative Images from the original note were not included. [facility] Follow-Up/Established Patient Visit Chief Complaint/Issues: Bethanie Dinero is a 32 year old handed right-handed female seen in the [facility] for: Follow up Multiple [...] today. She had tilt testing through her communications field technician locally which showed POTS. She has been [...] study yet. She is seeing neuro-ophthalmology in [address] for occular migraine symptoms and loss of peripheral vision on the right side. They are planning for repeat MRI. [facility] PAST MEDICAL HISTORY Diagnosis Date [...] up with their primary care physician and/or communications field technician as previously scheduled. STUDY CONCLUSIONS: Abnormal study. [...] Plantarflexion 5/5 5/5 Movement/Coordination Finger-to- nose-finger and vrpy-gy-vquw intact bilaterally. No evidence of ataxia arms. [...] Plan 12/15/2022 - General Neurology, Kelvin Shelton APRN.STAFF RESEARCH SCIENTIST ASSESSMENT Bethanie Dinero is a 32 year [...] which included preparing to see the patient, psfr-td-weez patient care, completing clinical documentation, obtaining and/or reviewing separately obtained history, performing a medically appropriate examination, counseling and educating the patient/family/caregiver, and ordering medications, tests, or procedures. Kelvin Shelton APRN.[facility] General Neurology [address] [place]. [address] Appointment: [phone] During our face to face clinical encounter [...] your PCP/referring physician documented in this encounter [facility] 12-14-2022 Miscellaneous Notes Images from the original note were not included. Patient last seen 10/19/2022. Per office note: documented in this encounter [facility] 11-10-2022 History of Present illness Narrative Explained policies and procedure of an echocardiogram/Doppler study. documented in this encounter [facility] Phone: 11-10-2022 History of Present illness Narrative Instructed on objectives and procedure of a tilt study documented in this encounter [facility] Phone: 11-09-2022 Miscellaneous Notes Patient reporting difficulty swallowing, liquids going down wrong, and biting her tongue in her sleep. Will also bring up to psychiatrist at next appointment. Asking advice. Grisel Kasper RN documented in this encounter [facility] 11-08-2022 Miscellaneous Notes Patient last seen on 10/19/22. documented in this encounter [facility] 10-19-2022 Instructions Megan Kern PA-C - 10/19/2022 8:44 AM EDT Continue gabapentin at 300mg in the AM and 600mg in the PM Consider Botox PREEMPT Protocol Consider CGRP monthly injection: aimovig, emgality, ajovy Use caution with naratriptan if your blood pressure is elevated Please follow up in 1 month or sooner if needed documented in this encounter [facility] 10-19-2022 History of Present illness Narrative Headache Center - Follow up Virtual Visit During this COVID-19 pandemic, patient's headache clinic evaluation was scheduled as a virtual visit using the following platform Zoom - patient currently located in [place] Bethanie Dinero was identified by name and [...] visit. Either the patient or their legal customer sales representative has been informed of the risks [...] and will send patient a letter over [employer] stating diagnosis and that she is under [facility] care for it. Happy to send this office note to PCP if provided a fax number but also discussed that she has access to all notes in [employer] account. Agree with neuro-ophthalmology evaluation for persistent loss of peripheral vision - reassuring that she had a dilated eye exam earlier this week. Patient verbalized understanding and agreed to treatment plan. She will follow up in 1 month or sooner if needed. PLAN: Continue cymbalta 60mg (with an outside department), gabapentin (with a local wool handler) Continue naratriptan, zofran, diclofenac as needed Trial [...] appointment with neuro-opthalmology later this week in [place] with Dr. Cortez. Naratriptan is helpful and does work a bit better than ubrelvy. Lost her naratriptan script. Denies hx of RI/stroke/CAD. She does check her BP at home but has her BP cuff packed away due to a recent move. BP at office visit with general neurology on 10/14/22 was 123/68. Has been being worked up by rheumatology and was told to see eye doctor and COMPOSITION MIXER - has been getting pustules on hips [...] spontaneous and fluent without dysarthria. Short and correction memory, cognition and general fund of knowledge [...] BP puts her at increased risk of RI/stroke - educated patient to avoid naratriptan use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 TE[employer]ER [employer].STAFF RESEARCH SCIENTIST [address] [place] [address] Referral ID Status Reason Start Date Expiration Date Visits Requested Visits Authorized [id number] Authorized PCP Requested Referral 09/30/2022 09/30/2023 1 1 Referral ID Status Reason Start Date Expiration Date Visits Requested Visits Authorized [id number] Authorized PCP Requested Referral 11/19/2022 10/19/2023 1 1 Specialty Diagnoses / Procedures Referred By Contac t Referred To Contact [facility] Diagnoses Dysphagia, unspecified type Procedures CONSULT TO SPEECH THERAPY OFFICE/OUTPATIENT [facility] 60-74 MINUTES Bessie Orona, TE[employer]ER [employer].STAFF RESEARCH SCIENTIST [address] [place] [address] [facility] [address] [place] [address] Referral ID Status Reason Start Date Expiration Date Visits Requested Visits Authorized [id number] Pending Review Auto-Generat ed Referral 11/09/2022 11/09/2023 1 1 Specialty Diagnoses / Procedures Referred By Contac t Referred To Contact Diagnoses Palpitations Lightheaded Dizziness Chest tightness SOB (shortness of breath) Vision changes R00.2 (ICD-10-CM) - Palpitations Procedures Tilt table test TX CARDIOVASCULAR FUNCTION EVAL W/TILT TABLE W/MNTR 88294 - TX CARDIOVASCULAR FUNCTION EVAL W/TILT TABLE W/MNTR Kristina Jacobs MD [address] [place] [address] [place] [address] [place] [address] Referral ID Status Reason Start Date Expiration Date Visits Re quested Visits Authorized [id number] Closed 10/11/2022 10/11/2023 1 1 Specialty Diagnoses / Procedures Referred By Contac t Referred To Contact Cardiology Diagnoses Palpitations Lightheaded Dizziness Chest tightness SOB (shortness of breath) Vision changes R00.2 (ICD-10-CM) - Palpitations Procedures Echo 2D w doppler w color complete TX ECHO TTHRC R-T 2D W/WOM-MODE COMPL SPEC&COLR D 19571 - TX ECHO TTHRC R-T 2D W/WOM-MODE COMPL SPEC&COLR D Kristina Jacobs MD [address] [place] [phone] Referral ID Status Reason Start Date Expiration Date Visits Re quested Visits Authorized [id number] Open 10/11/2022 10/11/2023 1 1 Specialty Diagnoses / Procedures Referred By Contac t Referred To Contact Diagnoses Palpitations Lightheaded Dizziness Chest tightness SOB (shortness of breath) Vision changes R00.2 (ICD-10-CM) - Palpitations Procedures Continuous cardiac monitoring, >2 up to 14 days TX XTRNL MOBILE CV TELEMETRY W/I&REPORT 30 DAYS [id number] - [place] XTRNL MOBILE CV TELEMETRY W/I&REPORT 30 DAYS Kristina Jacobs MD [address] [place] [phone] Kavita Gama, TE[employer] - STAFF RESEARCH SCIENTIST [address] [place] [address] Referral ID Status Reason Start Date Expiration Date Visits Re quested Visits Authorized [id number] Open 10/11/2022 10/11/2023 1 1 Specialty Diagnoses / Procedures Referred By Contac t Referred To Contact Diagnoses Spinal stenosis of cervical region Spinal stenosis of lumbar region, unspecified whether neurogenic claudication present Hyperreflexia Fasciculations Weakness B12 deficiency Neuropathy Functional tremor Procedures PROVIDER ORDERED FOLLOW UP OFFICE/OUTPATIENT [facility] MDM 60-74 MINUTES Rubin Verde MD [address] [place] [address] Referral ID Status Reason Start Date Expiration Date Visits Requested Visits Authorized [id number] Authorized PCP Requested Referral 02/21/2023 12/21/2023 1 1 Specialty Diagnoses / Procedures Referred By Contac t Referred To Contact MR IMAGING Diagnoses Hyperreflexia Weakness B12 deficiency Procedures MRI THORACIC SPINE WO IVCON MRI SPINAL CANAL THORACIC W/O CONTRAST MATRL Rubin Verde MD [address] [place] [address] Mr Imaging Referral ID Status Reason Start Date Expiration Date Visits Requested Visits Authorized [id number] Pending Review Auto-Generat ed Referral 12/21/2022 01/20/2024 1 1 Specialty Diagnoses / Procedures Referred By Contac t Referred To Contact MR IMAGING Diagnoses Spinal stenosis of cervical region Procedures MRI CERVICAL SPINE WO IVCON MRI SPINAL CANAL CERVICAL W/O CONTRAST MATRL Rubin Verde MD [address] [place] [phone] Mr Imaging Referral ID Status Reason Start Date Expiration Date Visits Requested Visits Authorized [id number] Pending Review Auto-Generat ed Referral 12/21/2022 01/20/2024 1 1 Specialty Diagnoses / Procedures Referred By Contac t Referred To Contact [facility] Diagnoses Hyperreflexia Fasciculations Weakness Procedures EMG(NEURO/NI) NERVE CONDUCTION STUDIES 9-10 STUDIES Rubin Verde MD [address] [place] [address] [facility] [address] [place] [address] Referral ID Status Reason Start Date Expiration Date Visits Requested Visits Authorized [id number] Pending Review Auto-Generat ed Referral 12/21/2022 12/22/2023 1 1 Specialty Diagnoses / Procedures Referred By Contac t Referred To Contact Psychology Diagnoses Chronic back pain, unspecified back location, unspecified back pain laterality Procedures CONSULT TO PSYCHOLOGY OFFICE/OUTPATIENT [facility] 60-74 MINUTES Rubin Verde MD [address] [place] [address] Referral ID Status Reason Start Date Expiration Date Visits Requested Visits Authorized [id number] Pending Review PCP Requested Referral 02/28/2023 02/28/2024 1 1 Specialty Diagnoses / Procedures Referred By Contac t Referred To Contact Diagnoses Chronic back pain, unspecified back location, unspecified back pain laterality Abnormal involuntary movement Procedures PROVIDER ORDERED FOLLOW UP OFFICE/OUTPATIENT [facility] 60-74 MINUTES Rubin Verde MD [address] [place] [address] Referral ID Status Reason Start Date Expiration Date Visits Requested Visits Authorized [id number] Authorized PCP Requested Referral 06/30/2023 02/28/2024 1 1 Specialty Diagnoses / Procedures Referred By Contac t Referred To Contact [facility] Diagnoses Chronic back pain, unspecified back location, unspecified back pain laterality Procedures CONSULT TO [facility] OFFICE/OUTPATIENT [facility] 60-74 MINUTES Rubin Verde MD [address] [place] [address] Referral ID Status Reason Start Date Expiration Date Visits Requested Visits Authorized [id number] Pending Review PCP Requested Referral 02/28/2023 02/28/2024 1 1 Specialty Diagnoses / Procedures Referred By Contac t Referred To Contact MR IMAGING Diagnoses Spinal stenosis of cervical region Procedures MRI CERVICAL SPINE WO IVCON MRI SPINAL CANAL CERVICAL W/O CONTRAST Rubin Joseph MD [address] [place] [phone] [facility] [place] [address] Referral ID Status Reason Start Date Expiration Date V isits Requested Visits Authorized [id number] Closed Auto-Generate d Referral 01/12/2023 03/13/2023 1 1 Specialty Diagnoses / Procedures Referred By Contac t Referred To Contact MR IMAGING Diagnoses Hyperreflexia Weakness B12 deficiency Procedures MRI THORACIC SPINE WO IVCON MRI SPINAL CANAL THORACIC W/O CONTRAST Rubin Joseph MD [address] [place] [phone] [facility] [place] [address] Referral ID Status Reason Start Date Expiration Date V isits Requested Visits Authorized [id number] Closed Auto-Generate d Referral 01/12/2023 03/13/2023 1 1 Specialty Diagnoses / Procedures Referred By Contac t Referred To Contact Cardiology Diagnoses Palpitations Racing heart beat Procedures CONSULT TO CARDIOLOGY OFFICE/OUTPATIENT [facility] 60-74 MINUTES Rubin Verde MD [address] [place] [phone] Referral ID Status Reason Start Date Expiration Date Visits Requested Visits Authorized [id number] Authorized PCP Requested Referral 04/20/2023 04/19/2024 1 1 Specialty Diagnoses / Procedures Referred By Contac t Referred To Contact Diagnoses Abdominal pain, unspecified abdominal location Procedures Vascular duplex abdominal visceral arteries/organs limited Jaja Truong, [employer]ER [employer] - CNM [address] [place] [address] Referral ID Status Reason Start Date Expiration Date Visits Re quested Visits Authorized [id number] Open 06/15/2023 06/14/2024 1 1 Specialty Diagnoses / Procedures Referred By Contac t Referred To Contact Radiology Diagnoses Abdominal pain, unspecified abdominal location Procedures US Non OB Transvaginal Jaja Truong, TE[employer] - CN [address] [place] [address] Referral ID Status Reason Start Date Expiration Date Visits Re quested Visits Authorized [id number] Open 06/15/2023 06/14/2024 1 1 Specialty Diagnoses / Procedures Referred By Contac t Referred To Contact [facility] Diagnoses Abnormal voice Procedures CONSULT TO SPEECH THERAPY OFFICE/OUTPATIENT [facility] 60 MINUTES Rubin Verde MD [address] [place] [address] [facility] [address] [address] Referral ID Status Reason Start Date Expiration Date Visits Requested Visits Authorized [id number] Pending Review Auto-Generat ed Referral 07/21/2023 07/20/2024 1 1 Specialty Diagnoses / Procedures Referred By Contac t Referred To Contact Gastroenterology Diagnoses Constipation, unspecified constipation type Vomiting without nausea, unspecified vomiting type Gastroparesis Procedures CONSULT TO GASTROENTEROLOGY OFFICE/OUTPATIENT [facility] 60 MINUTES Rubin Verde MD [address] [place] [address] Referral ID Status Reason Start Date Expiration Date Visits Requested Visits Authorized [id number] Authorized PCP Requested Referral 07/21/2023 07/20/2024 1 1 Specialty Diagnoses / Procedures Referred By Contac t Referred To Contact [facility] Diagnoses Multiple neurological symptoms Dysphonia Dysphagia, unspecified type Procedures SPEECH REHAB FOLLOW UP ORDER TX SPEECH LANG VOICE COMMJ &/AUDITORY PROC IND Speech [facility] [place] [address] [place] [address] [facility] [address] [address] Referral ID Status Reason Start Date Expiration Date Visits Requested Visits Authorized [id number] Pending Review PCP Requested Referral Auto-Generate d Referral 07/24/2023 10/22/2023 1 1 Specialty Diagnoses / Procedures Referred By Contac t Referred To Contact Procedures CARDIOVASCULAR MEDICINE [place] [address] [place], [place] [address]percy Samuel [address] [address] Referral ID Status Reason Start Date Expiration Date Visits Requested Visits Authorized [id number] Ref Not Required PCP Requested Referral 07/28/2023 07/27/2024 1 1 Specialty Diagnoses / Procedures Referred By Contac t Referred To Contact [facility] [place] Diagnoses Palpitations Procedures ECHO ECHO TTHRC R-T 2D W/WOM-MODE COMPL SPEC&COLR D Jay Phillips MD [address] [address] [place] [address] Referral ID Status Reason Start Date Expiration Date Visits Requested Visits Authorized [id number] Authorized Auto-Generat ed Referral 07/28/2023 09/26/2023 1 1 Specialty Diagnoses / Procedures Referred By Contac t Referred To Contact [facility] Diagnoses Chronic back pain, unspecified back location, unspecified back pain laterality Abnormality of gait Procedures PT REHAB FOLLOW UP ORDER THERAPEUTIC EXERCISES RE, EA 15 MIN. Eneida Morales, PT, DPT [address] [place] [address] [facility] [place] [address] Referral ID Status Reason Start Date Expiration Date Visits Requested Visits Authorized [id number] Pending Review PCP Requested Referral Auto-Generate d Referral 07/31/2023 10/29/2023 1 1 Specialty Diagnoses / Procedures Referred By Contac t Referred To Contact Nephrology Diagnoses Labile blood pressure POTS (postural orthostatic tachycardia syndrome) Procedures CONSULT TO KIDNEY MEDICINE OFFICE/OUTPATIENT [facility] 60 MINUTES Noa Gauthier, [place] [address] Referral ID Status Reason Start Date Expiration Date Visits Requested Visits Authorized [id number] Authorized PCP Requested Referral 08/01/2023 07/31/2024 1 1 Specialty Diagnoses / Procedures Referred By Contac t Referred To Contact Ent - Otolaryngology Diagnoses Aphthous ulcer of mouth Procedures CONSULT TO ENT OFFICE/OUTPATIENT [facility] 60 [place] [address] Referral ID Status Reason Start Date Expiration Date Visits Requested Visits Authorized [id number] Authorized PCP Requested Referral 08/31/2023 08/30/2024 1 1 Specialty Diagnoses / Procedures Referred By Contac t Referred To [place] [address] Referral ID Status Reason Start Date Expiration Date Visits Re quested Visits Authorized [id number] Closed 1 1 Specialty Diagnoses / Procedures Referred By Contac t Referred To Contact Diagnoses Vitamin B12 deficiency [place] [address] Referral ID Status Reason Start Date Expiration Date Visits Re quested Visits Authorized [id number] Closed 1 1 Specialty Diagnoses / Procedures Referred By Contac t Referred To Contact Diagnoses Weakness Fasciculations Abnormal involuntary movement Procedures PROVIDER ORDERED FOLLOW UP OFFICE/OUTPATIENT [facility] 60 MINUTES Peggy [place] APRN.STAFF RESEARCH SCIENTIST [address] [place] [address] Rubin Verde MD [address] [place] [address] Referral ID Status Reason Start Date Expiration Date Visits Requested Visits Authorized [id number] Authorized PCP Requested Referral 01/29/2024 09/28/2024 1 1 Specialty Diagnoses / Procedures Referred By Contac t Referred To Contact Rheumatology Diagnoses Behcet's syndrome (HCC) Procedures CONSULT TO RHEUM/IMMUN DISEASE OFFICE/OUTPATIENT [facility] 60 MINUTES Noa Gauthier, [address] [place] [address] Referral ID Status Reason Start Date Expiration Date Visits Requested Visits Authorized [id number] Authorized PCP Requested Referral 10/03/2023 10/02/2024 1 1 Specialty Diagnoses / Procedures Referred By Contac t Referred To Contact Urology Diagnoses Neurogenic bladder Procedures CONSULT TO UROLOGY Noa Gauthier, [address] [place] [address] Referral ID Status Reason Start Date Expiration Date Visits Requested Visits Authorized [id number] Ref Not Required PCP Requested Referral 10/09/2023 10/08/2024 1 1 Specialty Diagnoses / Procedures Referred By Contac t Referred To Contact [facility] [place] Procedures CARDIOVASCULAR MEDICINE OP FOLLOW UP APPT ORDER Marie Stevens APRN.CNP [address] [place] [address] [address] Referral ID Status Reason Start Date Expiration Date Visits Requested Visits Authorized [id number] Ref Not Required PCP Requested Referral 10/16/2023 10/15/2024 1 1 Specialty Diagnoses / Procedures Referred By Contac t Referred To Contact Diagnoses Recurrent aphthous stomatitis Barbara Rubio MD [address] [place] [address] Referral ID Status Reason Start Date Expiration Date V isits Requested Visits Authorized [id number] Pending Review 1 1 Specialty Diagnoses / Procedures Referred By Contac t Referred To Contact [facility] Diagnoses Low back pain with bilateral sciatica, unspecified back pain laterality, unspecified chronicity Procedures PT REHAB FOLLOW UP ORDER THERAPEUTIC EXERCISES RE, EA 15 MIN. Pt [facility] [address] [place] [address] [facility] [address] [address] Referral ID Status Reason Start Date Expiration Date Visits Requested Visits Authorized [id number] Pending Review PCP Requested Referral Auto-Generate d Referral 10/23/2023 01/21/2024 1 1 Referral ID Status Reason Start Date Expiration Date Visits Re quested Visits Authorized [id number] Closed 1 1 Specialty Diagnoses / Procedures Referred By Contac t Referred To Contact [facility] Diagnoses Functional neurological symptom disorder with mixed symptoms Procedures CONSULT TO SCHOOL NURSE OCCUPATIONAL THERAPY [facility] 60 MINS Rubin Verde MD [address] [place] [address] [facility] [place] [address] Referral ID Status Reason Start Date Expiration Date Visits Requested Visits Authorized [id number] Pending Review Auto-Generat ed Referral 12/04/2023 12/03/2024 1 1 Specialty Diagnoses / Procedures Referred By Contac t Referred To Contact [facility] Diagnoses Functional neurological symptom disorder with mixed symptoms Procedures CONSULT TO PHYSICAL THERAPY PHYSICAL THERAPY [facility] 45 MINS Rubin Verde MD [address] [place] [address] [place] [address] Referral ID Status Reason Start Date Expiration Date Visits Requested Visits Authorized [id number] Pending Review Auto-Generat ed Referral 12/04/2023 12/03/2024 1 1 Specialty Diagnoses / Procedures Referred By Contac t Referred To Contact Psychology Diagnoses Chronic back pain, unspecified back location, unspecified back pain laterality Abnormality of gait Functional neurological symptom disorder with mixed symptoms Procedures CONSULT TO PSYCHOLOGY OFFICE/OUTPATIENT [facility] 60 MINUTES Rubin Verde MD [address] [place] [address] Referral ID Status Reason Start Date Expiration Date Visits Requested Visits Authorized [id number] Pending Review PCP Requested Referral 12/04/2023 12/03/2024 1 1 Specialty Diagnoses / Procedures Referred By Contac t Referred To Contact Diagnoses Functional neurological symptom disorder with mixed symptoms Procedures CONSULT TO [facility] SHARED MEDICAL APPOINTMENT Rubin Verde MD [address] [place] [phone] [place] [phone] Referral ID Status Reason Start Date Expiration Date Visits Requested Visits Authorized [id number] Ref Not Required PCP Requested Referral 12/04/2023 12/03/2024 1 1 Specialty Diagnoses / Procedures Referred By Contac t Referred To Contact Diagnoses Chronic back pain, unspecified back location, unspecified back pain laterality Abnormality of gait Functional neurological symptom disorder with mixed symptoms Procedures CONSULT TO FUNCTIONAL MOVEMENT DISORDERS (FMD) OFFICE/OUTPATIENT [facility] 60 MINUTES Rubin Verde MD [address] [place], [place] [address] [place] [address] Referral ID Status Reason Start Date Expiration Date Visits Requested Visits Authorized [id number] Authorized PCP Requested Referral 12/04/2023 12/03/2024 1 1 Specialty Diagnoses / Procedures Referred By Contac t Referred To Contact Dermatology Diagnoses Rash Procedures CONSULT TO DERMATOLOGY OFFICE/OUTPATIENT [facility] 60 MINUTES Noa Gauthier, [address] [place] [address] Referral ID Status Reason Start Date Expiration Date Visits Requested Visits Authorized [id number] Authorized PCP Requested Referral 12/12/2023 12/11/2024 1 1 Specialty Diagnoses / Procedures Referred By Contac t Referred To Contact Gastroenterology Diagnoses Rectal tenesmus Abdominal cramping Procedures CONSULT TO GASTROENTEROLOGY CONSULT TO GASTROENTEROLOGY OFFICE/OUTPATIENT [facility] 60 MINUTES Noa Gauthier, [address] [place] [address] Referral ID Status Reason Start Date Expiration Date Visits Requested Visits Authorized [id number] Authorized PCP Requested Referral 12/22/2023 12/21/2024 1 1 Specialty Diagnoses / Procedures Referred By Contac t Referred To Contact Gynecology Diagnoses Dyspareunia, female Procedures CONSULT TO GYNECOLOGY OFFICE/OUTPATIENT [facility] 60 MINUTES Noa Gauthier, [address] [place] [address] Referral ID Status Reason Start Date Expiration Date Visits Requested Visits Authorized [id number] Authorized PCP Requested Referral Auto-Generate d Referral 12/22/2023 12/21/2024 1 1 Specialty Diagnoses / Procedures Referred By Contac t Referred To Contact Diagnoses Hypermobility arthralgia Procedures CONSULT TO PEDS RHEUMATOLOGY OFFICE/OUTPATIENT [facility] 60 MINUTES Noa Gauthier, [address] [place] [address] Referral ID Status Reason Start Date Expiration Date Visits Requested Visits Authorized [id number] Authorized PCP Requested Referral 12/25/2023 12/24/2024 1 1 Specialty Diagnoses / Procedures Referred By Contac t Referred To Contact Rheumatology Diagnoses Hypermobility arthralgia Procedures CONSULT TO RHEUM/IMMUN DISEASE OFFICE/OUTPATIENT [facility] 60 MINUTES Patrickjuanjovincent Noa, DO [address] [place] [address] Referral ID Status Reason Start Date Expiration Date Visits Requested Visits Authorized [id number] Authorized PCP Requested Referral 12/25/2023 12/24/2024 1 1 Specialty Diagnoses / Procedures Referred By Contac t Referred To Contact Diagnoses Behcet's disease with multisystem involvement (HCC) Chris Gates MD [address] [place] [address] Referral ID Status Reason Start Date Expiration Date V isits Requested Visits Authorized [id number] Pending Review 02/23/2024 04/23/2024 1 1 Discharge Instructions * Instructions* Vanda Joseph PA-C - 05/20/2020 Call to arrange follow-up with [employer] direct entry midwife for continued evaluation. * Attachments The following attachments cannot be sent through Care Everywhere. * : Weeks 10 to 14 (Tunisian) documented in this encounter* Attachments The following attachments cannot be sent through Care Everywhere. * Lightheadedness or Faintness (Tunisian) * SOB (Shortness of Breath) (Tunisian) * Panic Attacks (Tunisian) documented in this encounter* Attachments The following attachments cannot be sent through Care Everywhere. * Miscarriage: Threatened (Tunisian) documented in this encounter* Instructions* Mary Ponce DO - 08/28/2020 Round Ligament Pain: Care Instructions [...] doctor may suggest that you take an [id number] pain medicine, such as acetaminophen. Follow-up care [...] Log into your personal health record on [email or web address] and enter R110 in the Education box to learn more about Round Ligament Pain: Care Instructions. Current as of: July 23, 2019 Content Version: 12.7 [employer] Care instructions adapted under license by your healthcare professional. If you have questions about a medical condition or this instruction, always ask your healthcare professional. [employer] disclaims any warranty or liability for your use of this information. * Attachments The following attachments cannot be sent through Care Everywhere. * : When to Call (After 20 Weeks): General Info (Tunisian) * : [employer] Counts (Tunisian) documented in this encounter Instructions * Patient [...] to find a good position during intercourse. Ismay and explore. You may get cramps in [...] Log into your personal health record on [email or web address] and enter S999 in the Education box to learn more about Weeks 26 to 30 of Your : Care Instructions. Current as of: July 23, 2019 Content Version: 12.7 [employer]amit. Care instructions adapted under license by your healthcare professional. If you have questions about a medical condition or this instruction, always ask your healthcare professional. [employer] disclaims any warranty or liability for your [...] to find a good position during intercourse. Ismay and explore. You may get cramps in [...] Log into your personal health record on [email or web address] and enter S999 in the Education box to learn more about Weeks 26 to 30 of Your : Care Instructions. Current as of: July 23, 2019 Content Version: 12.7 Glamit. Care instructions adapted under license by your healthcare professional. If you have questions about a medical condition or this instruction, always ask your healthcare professional. [employer] disclaims any warranty or liability for your [...] to find a good position during intercourse. Ismay and explore. You may get cramps in [...] Log into your personal health record on [email or web address] and enter S999 in the Education box to learn more about Weeks 26 to 30 of Your : Care Instructions. Current as of: July 23, 2019 Content Version: 12.7 Glamit. Care instructions adapted under license by your healthcare professional. If you have questions about a medical condition or this instruction, always ask your healthcare professional. [employer] disclaims any warranty or liability for your [...] to find a good position during intercourse. Ismay and explore. You may get cramps in [...] strong contractions without a pattern are called King- Rees contractions. They are practice contractions but not the start of labor. They often stop if you change what you are doing. ? Call your doctor if you have regular contractions. Where can you learn more? Log into your personal health record on [email or web address] and enter S999 in the Education box to learn more about Weeks 26 to 30 of Your : Care Instructions. Current as of: July 23, 2019 Content Version: 12.7 [employer]it. Care instructions adapted under license by your healthcare professional. If you have questions about a medical condition or this instruction, always ask your healthcare professional. [employer] disclaims any warranty or liability for your use of this information. documented in this encounter Additional Source Comments INFORMATION SOURCE (unrecogn ized section and content) DATE CREATED AUTHOR 11/26/2019 [facility] DATE CREATED AUTHOR AUTHOR'S ORGANIZ ATION 08/03/2022 [facility] DATE CREATED AUTHOR AUTHOR'S ORGANIZ ATION 08/12/2022 [facility] DATE CREATED AUTHOR AUTHOR'S ORGANIZ ATION 08/21/2022 [facility] DATE CREATED AUTHOR AUTHOR'S ORGANIZ ATION 10/01/2022 [facility] DATE CREATED AUTHOR AUTHOR'S ORGANIZ ATION 10/05/2022 [facility] DATE CREATED AUTHOR AUTHOR'S ORGANIZ ATION 10/16/2022 [facility] DATE CREATED AUTHOR AUTHOR'S ORGANIZ ATION 10/25/2022 [facility] DATE CREATED AUTHOR AUTHOR'S ORGANIZ ATION 10/25/2022 [facility] DATE CREATED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 [address] [place] [address] PCP - General Family Medicine 07/20/22 Yuridia Johnson PSA Patient Consumer Marketing Manager 03/31/22 Leg Man Relationship Specialty Start Date End Date Alessandra Romero DO [address] [place] [address] PCP - General Family Medicine 07/20/22 Yuridia Johnson PSA Patient Consumer Marketing Manager 03/31/22 Leg Man Relationship Specialty Start Date End Date Alessandra Romero DO [address] [place] [address] PCP - General Family Medicine 07/20/22 Yuridia Johnson PSA Patient Consumer Marketing Manager 03/31/22 Leg Man Relationship Specialty Start Date End Date Harish Garza [address] [place] [address] [place] [address] Referring Family Medicine 07/21/22 Leg Man Relationship Specialty Start Date End Date Harish Garza [address] [place] [address] [place] [address] Referring Family Medicine 07/21/22 Leg Man Relationship Specialty Start Date End Date Harish Garza [address] [place] [address] [place] [address] Referring Family Medicine 07/21/22 Leg Man Relationship Specialty Start Date End Date Harish Garza [address] [place] [address] [place] [address] Referring Family Medicine 07/21/22 Leg Man Relationship Specialty Start Date End Date Harish Garza [address] [place] [address] [place] [address] Referring Family Medicine 07/21/22 Leg Man Relationship Specialty Start Date End Date Harish Garza [address] [place] [address] Referring Family Medicine 07/21/22 Leg Man Relationship Specialty Start Date End Date Harish Garza [address] [place] [address] [place] [address] Referring Family Medicine 07/21/22 Leg Man Relationship Specialty Start Date End Date Alessandra Romero DO [address] [facility] [address] [place] [address] PCP - General Family Medicine 07/20/22 Yuridia Johnson PSA Patient Consumer Marketing Manager 03/31/22 Leg Man Relationship Specialty Start Date End Date Harish Garza [address] [place] [address] Referring Family Medicine 07/21/22 Leg Man Relationship Specialty Start Date End Date Harish Garza [address] [place] [address] Referring Family Medicine 07/21/22 Leg Man Relationship Specialty Start Date End Date Harish Garza [address] [place] [address] Referring Family Medicine 07/21/22 Leg Man Relationship Specialty Start Date End Date Harish Garza [address] [place] [address] Referring Family Medicine 07/21/22 Leg Man Relationship Specialty Start Date End Date Harish Garza [address] [place] [address] Referring Family Medicine 07/21/22 Leg Man Relationship Specialty Start Date End Date Kavita Gama [address] [facility], [facility] PCP - General 10/14/22 Harish Garza [address] [place] [address] Referring Family Medicine 07/21/22 Leg Man Relationship Specialty Start Date End Date Kavita Gama [address] [place] [facility] [place] [address] PCP - General 10/14/22 Harish Garza [address] [place] [address] Referring Family Medicine 07/21/22 Leg Man Relationship Specialty Start Date End Date Lanette, Kavita Jordan [address] [place] [facility] [place] [address] PCP - General 10/14/22 Harish Garza A [address] [place] [address] Referring Family Medicine 07/21/22 Leg Man Relationship Specialty Start Date End Date Lanette, Kavita Jordan APRN - STAFF RESEARCH SCIENTIST [address] [place] [facility] [place] [address] PCP - General Certified Nurse Practitioner 10/10/22 Leg Man Relationship Specialty Start Date End Date Lanette, Kavita Jordan [address] [place] [facility] [place] [address] PCP - General 10/14/22 [facility] A [address] [place] [address] Referring Family Medicine 07/21/22 Leg Man Relationship Specialty Start Date End Date Lanette, Kavita Jordan [address] [place] [facility] [place] [address] PCP - General 10/14/22 Harish Garza A [address] [place] [address] Referring Family Medicine 07/21/22 Leg Man Relationship Specialty Start Date End Date Lanette, Kavita Jordan APRN - STAFF RESEARCH SCIENTIST [address] [place] [facility] [place] [address] PCP - General Certified Nurse Practitioner 10/10/22 Leg Man Relationship Specialty Start Date End Date Lanette, Kavita Jordan TEACHER [employer] - STAFF RESEARCH SCIENTIST [address] [place] [facility] [place] [address] PCP - General Certified Nurse Practitioner 10/10/22 Leg Man Relationship Specialty Start Date End Date Lanette, Kavita Jordan, TEACHER [employer]CHO[employer] - STAFF RESEARCH SCIENTIST [address] [place] [facility] [place] [address] PCP - General Certified Nurse Practitioner 10/10/22 Leg Man Relationship Specialty Start Date End Date LanetteKavita lopez [address] [place] [facility] [place] [address] PCP - General 10/14/22 Harish Garza [address] [place] [address] [place] [address] Referring Family Medicine 07/21/22 Leg Man Relationship Specialty Start Date End Date LanetteKavita lopez [address] [place] [facility] [place] [address] PCP - General 10/14/22 Harish Garza [address] [place] [address] [place] [address], [place] [address] Referring Family Medicine 07/21/22 Leg Man Relationship Specialty Start Date End Date LanetteKavita lopez [address] [place] [facility] [place] [address] PCP - General 10/14/22 Harish Garza [address] [place] [address] Referring Family Medicine 07/21/22 Leg Man Relationship Specialty Start Date End Date Lanette, Kavita Nikki [address] [place] [facility] [place] [address] PCP - General 10/14/22 Harish Garza [address] [place] [address] Referring Family Medicine 07/21/22 Leg Man Relationship Specialty Start Date End Date Lanette, Kavita Jordan [address] [facility], [facility]83 PCP - General 10/14/22 Harish Garza [facility] [address] [address] Referring Family Medicine 07/21/22 Leg Man Relationship Specialty Start Date End Date Kavita Gama [address] [place] [address], [facility]83 PCP - General 10/14/22 Harish Garza [address] [place], [place] [address] Referring Family Medicine 07/21/22 Leg Man Relationship Specialty Start Date End Date Kavita Gama [address] [place] [address], [facility]83 PCP - General 10/14/22 Harish Garza [address] [place] [address], [place] [address] Referring Family Medicine 07/21/22 Leg Man Relationship Specialty Start Date End Date Kavita Gama [address] [place] [address], [place] [address] PCP - General 10/14/22 Harish Garza [facility] [address] [place] [address] Referring Family Medicine 07/21/22 Leg Man Relationship Specialty Start Date End Date Kavita Gama [address] [place] [facility] [place] [address] PCP - General 10/14/22 Harish Garza [facility] [address] [address] Referring Family Medicine 07/21/22 Leg Man Relationship Specialty Start Date End Date Kavita Gama [address] [place], [place] [id number] PCP - General 10/14/22 Harish Garza [address] [place], [place] [address] Referring Family Medicine 07/21/22 Leg Man Relationship Specialty Start Date End Date Kavita Gama [address] [place], [place] [address] PCP - General 10/14/22 Harish Garza DO [address] [place], [place] [address] Referring Family Medicine 07/21/22 Leg Man Relationship Specialty Start Date End Date Kavita Gama [address] [place] [address] PCP - General 10/14/22 Harish Garza DO [address] [place] [address] Referring Family Medicine 07/21/22 Leg Man Relationship Specialty Start Date End Date Kavita Gama [address] [place], [place] [address]83 PCP - General 10/14/22 [place] [address] [place] [address] Referring Family Medicine 07/21/22 Leg Man Relationship Specialty Start Date End Date Kavita Gama [address] [place] [id number] PCP - General 10/14/22 Harish Garza DO [address] [place] [address] Referring Family Medicine 07/21/22 Leg Man Relationship Specialty Start Date End Date Kavita Gama APRN - STAFF RESEARCH SCIENTIST [address] [place], [place] [address] PCP - General Certified Nurse Practitioner 10/10/22 Leg Man Relationship Specialty Start Date End Date Kavita Gama APRN.STAFF RESEARCH SCIENTIST [address] [place], [place] [address] PCP - General 10/14/22 Harish Garza DO [address] [place] [address] Referring Family Medicine 07/21/22 Leg Man Relationship Specialty Start Date End Date Kavita Gama APRN.STAFF RESEARCH SCIENTIST [address] [place], [place] [address] PCP - General 10/14/22 Harish Garza DO [address] [place] [address] Referring Family Medicine 07/21/22 Leg Man Relationship Specialty Start Date End Date Kavita Gama APRN - STAFF RESEARCH SCIENTIST [address] [place], [place] [address]83 PCP - General Certified Nurse Practitioner 10/10/22 Leg Man Relationship Specialty Start Date End Date Kavita Gama APRN.STAFF RESEARCH SCIENTIST [address] [place] [id number] PCP - General 10/14/22 Harish Garza DO [address] [place], [place] [address] Referring Family Medicine 07/21/22 Leg Man Relationship Specialty Start Date End Date Kavita Gama, SHAY.STAFF RESEARCH SCIENTIST [address] [id number] PCP - General 10/14/22 Harish Garza DO [address] [place], [place] [address] Referring Family Medicine 07/21/22 Leg Man Relationship Specialty Start Date End Date Kavita Gama, TEACHER PRESCHOOL.STAFF RESEARCH SCIENTIST [address] [id number] PCP - General 10/14/22 Harish Garza DO [address] [place], [place] [address] Referring Family Medicine 07/21/22 Leg Man Relationship Specialty Start Date End Date Kavita Gama TEACHER PRESCHOOL.STAFF RESEARCH SCIENTIST [address] [id number] PCP - General 10/14/22 Harish Garza DO [address] [place], [place] [address] Referring Family Medicine 07/21/22 Leg Man Relationship Specialty Start Date End Date Kavita Gama, SHAY.STAFF RESEARCH SCIENTIST [address] [place], [place] [address] PCP - General 10/14/22 Harish Garza DO [address] [place], [place] [address] Referring Family Medicine 07/21/22 Jay Phillips MD [address] [place] [address] [phone] Primary Staff Physician Cardiology 07/27/23 Leg Man Relationship Specialty Start Date End Date Kavita Gama, TEACHER PRESCHOOL.STAFF RESEARCH SCIENTIST [address] [place], [place] [address] PCP - General 10/14/22 Harish Garza DO [address] [place] [address] Referring Family Medicine 07/21/22 Jay Phillips MD [address] [address] Primary Staff Physician Cardiology 07/27/23 Leg Man Relationship Specialty Start Date End Date Kavita Gama, TEACHER PRESCHOOL.STAFF RESEARCH SCIENTIST [address] [place], [place] [address] PCP - General 10/14/22 Harish Garza DO [address] [place], [place] [address] Referring Family Medicine 07/21/22 Jay Phillips MD [address] [place] [address] Primary Staff Physician Cardiology 07/27/23 Leg Man Relationship Specialty Start Date End Date Noa Gauthier DO [address] [place] [address] [id number] PCP - General Internal Medicine 08/01/23 Harish Garza DO [address] [place] [address] Referring Family Medicine 07/21/22 Jay Phillips MD [address] [place] [phone] Primary Staff Physician Cardiology 07/27/23 Leg Man Relationship Specialty Start Date End Date Noa Gauthier DO [address] [place] [address] [phone] PCP - General Internal Medicine 08/01/23 Harish Garza DO [address] [place] [address] Referring Family Medicine 07/21/22 Jay Phillips MD [address] [phone] Primary Staff Physician Cardiology 07/27/23 Leg Man Relationship Specialty Start Date End Date Noa Gauthier DO [address] [place] [address] PCP - General Internal Medicine 08/01/23 Harish Garza DO [address] [place] [address] Referring Family Medicine 07/21/22 Jay Phillips MD [address] [place], [place] [phone] Primary Staff Physician Cardiology 07/27/23 Leg Man Relationship Specialty Start Date End Date Noa Gauthier DO [address] [place] [address] [phone] PCP - General Internal Medicine 08/01/23 Harish Garza DO [address] [place], [place] [address] Referring Family Medicine 07/21/22 Jay Phillips MD [address] [place], [place] [phone] Primary Staff Physician Cardiology 07/27/23 Leg Man Relationship Specialty Start Date End Date Noa Gauthier DO [address] [place] [address] PCP - General Internal Medicine 08/01/23 Harish Garza DO [address] [place] [address] [place] [address] Referring Family Medicine 07/21/22 Jay Phillips MD [address] [place], [place] [phone] Primary Staff Physician Cardiology 07/27/23 [place], postal clerk Front End Mechanic 08/08/23 Leg Man Relationship Specialty Start Date End Date Noa Gauthier DO [address] [place] [address] PCP - General Internal Medicine 08/01/23 Harish Garza DO [address] [place] [address] Referring Family Medicine 07/21/22 Jay Phillips MD [address] [place], [place] [phone] Primary Staff Physician Cardiology 07/27/23 Leg Man Relationship Specialty Start Date End Date Noa Gauthier DO [address] [place], [place] [phone] PCP - General Internal Medicine 08/01/23 Harish Garza DO [address] [place] [address] Referring Family Medicine 07/21/22 Jay Phillips MD [address] [place], [place] [phone] Primary Staff Physician Cardiology 07/27/23 [place], postal clerk Front End Mechanic 08/08/23 Leg Man Relationship Specialty Start Date End Date Noa Gauthier DO [address] [place], [place] [phone] PCP - General Internal Medicine 08/01/23 Harish Garza DO [address] [place] [address] Referring Family Medicine 07/21/22 Jay Phillips MD [address] [place], [place] [phone] Primary Staff Physician Cardiology 07/27/23 [place], postal clerk Front End Mechanic 08/08/23 Leg Man Relationship Specialty Start Date End Date Noa Gauthier DO [address] [place] [address] PCP - General Internal Medicine 08/01/23 Harish Garza DO [address] [place] [address] Referring Family Medicine 07/21/22 Jay Phillips MD [address] [place] [address] Primary Staff Physician Cardiology 07/27/23 [place] RN Primary Care Front End Mechanic 08/08/23 Leg Man Relationship Specialty Start Date End Date Noa Gauthier DO [address] [place] [address] PCP - General Internal Medicine 08/01/23 Harish Garza DO [address] [place] [address] [place] [address] Referring Family Medicine 07/21/22 Jay Phillips MD [address] [place], [place] [phone] Primary Staff Physician Cardiology 07/27/23 [place] RN Primary Care Front End Mechanic 08/08/23 Leg Man Relationship Specialty Start Date End Date Noa Gauthier DO [address] [place] [address] PCP - General Internal Medicine 08/01/23 Harish Garza DO [address] [place] [address] Referring Family Medicine 07/21/22 aJy Phillips MD [address] [place] [address] [phone] Primary Staff Physician Cardiology 07/27/23 [place], postal clerk Front End Mechanic 08/08/23 Leg Man Relationship Specialty Start Date End Date Noa Gauthier DO [address] [place] [address] PCP - General Internal Medicine 08/01/23 Harish Garza DO [address] [place] [address] Referring Family Medicine 07/21/22 Jay Phillips MD [address] [place] [address] Primary Staff Physician Cardiology 07/27/23 [place], postal clerk Front End Mechanic 08/08/23 Leg Man Relationship Specialty Start Date End Date Noa Gauthier DO [address] [place] [address] PCP - General Internal Medicine 08/01/23 Harish Garza DO [address] [place] [address] Referring Family Medicine 07/21/22 Jay Phillips MD [address] [place] [address] Primary Staff Physician Cardiology 07/27/23 [place], postal clerk Front End Mechanic 08/08/23 Leg Man Relationship Specialty Start Date End Date Noa Gauthier DO [address] [place] [address] PCP - General Internal Medicine 08/01/23 Harish Garza DO [address] [place] [address] Referring Family Medicine 07/21/22 Jay Phillips MD [address] [place] [address] Primary Staff Physician Cardiology 07/27/23 Leg Man Relationship Specialty Start Date End Date Noa Gauthier DO [address] [place] [address] PCP - General Internal Medicine 08/01/23 Harish Garza DO [address] [place] [address] Referring Family Medicine 07/21/22 Jay Phillips MD [address] [place] [address] [phone] Primary Staff Physician Cardiology 07/27/23 Leg Man Relationship Specialty Start Date End Date Noa Gauthier DO [address] [place] [address] PCP - General Internal Medicine 08/01/23 Harish Garza DO [address] [place] [address] Referring Family Medicine 07/21/22 Jay Phillips MD [address] [place] [address] Primary Staff Physician Cardiology 07/27/23 Leg Man Relationship Specialty Start Date End Date Noa Gauthier DO [address] [place], [place] [phone] PCP - General Internal Medicine 08/01/23 Harish Garza DO [address] [place] [address] Referring Family Medicine 07/21/22 Jya Phillips MD [address] [phone] Primary Staff Physician Cardiology 07/27/23 Leg Man Relationship Specialty Start Date End Date Noa Gauthier DO [address] [place], [place] [phone] PCP - General Internal Medicine 08/01/23 Harish Garza DO [address] [place], [place] [address] Referring Family Medicine 07/21/22 Jay Phillips MD [address] [place] [address] Primary Staff Physician Cardiology 07/27/23 Leg Man Relationship Specialty Start Date End Date Noa Gauthier DO [address] [place] [address] PCP - General Internal Medicine 08/01/23 Harish Garza DO [address] [place] [address] Referring Family Medicine 07/21/22 Jay Phillips MD [address] [place] [phone] Primary Staff Physician Cardiology 07/27/23 Leg Man Relationship Specialty Start Date End Date Noa Gauthier DO [address] [place], [place] [phone] PCP - General Internal Medicine 08/01/23 Harish Garza DO [address] [place] [address] Referring Family Medicine 07/21/22 Jay Phillips MD [address] [address] Primary Staff Physician Cardiology 07/27/23 [place], postal clerk Front End Mechanic 08/08/23 09/06/23 Leg Man Relationship Specialty Start Date End Date Noa Gauthier DO [address] [place] [address] [phone] PCP - General Internal Medicine 08/01/23 Harish Garza DO [address] [place], [place] [address] Referring Family Medicine 07/21/22 Jay Phillips MD [address] [phone] Primary Staff Physician Cardiology 07/27/23 Leg Man Relationship Specialty Start Date End Date Noa Gauthier DO [address] [place] [address] PCP - General Internal Medicine 08/01/23 Harish Garza DO [address] [place] [address] Referring Family Medicine 07/21/22 Jay Phillips MD [address] [place] [phone] Primary Staff Physician Cardiology 07/27/23 Leg Man Relationship Specialty Start Date End Date Noa Gauthier DO [address] [place] [address] PCP - General Internal Medicine 08/01/23 Harish Garza DO [address] [place], [place] [address] Referring Family Medicine 07/21/22 Jay Phillips MD [address] [address] Primary Staff Physician Cardiology 07/27/23 Leg Man Relationship Specialty Start Date End Date Noa Gauthier DO [address] [place], [place] [id number] PCP - General Internal Medicine 08/01/23 Harish Garza DO [address] [place] [address] Referring Family Medicine 07/21/22 Jay Phillips MD [address] [place], [place] [phone] Primary Staff Physician Cardiology 07/27/23 Leg Man Relationship Specialty Start Date End Date Noa Gauthier DO [address] [place], [place] [phone] PCP - General Internal Medicine 08/01/23 Harish Garza DO [address] [place] [address] Referring Family Medicine 07/21/22 Jay Phillips MD [address] [place], [place] [phone] Primary Staff Physician Cardiology 07/27/23 Leg Man Relationship Specialty Start Date End Date Noa Gauthier DO [address] [place], [place] [phone] PCP - General Internal Medicine 08/01/23 Harish Garza DO [address] [place], [place] [id number] Referring Family Medicine 07/21/22 Jay Phillips MD [address] [place] [address] Primary Staff Physician Cardiology 07/27/23 Leg Man Relationship Specialty Start Date End Date Noa Gauthier DO [address] [place] [id number] PCP - General Internal Medicine 08/01/23 Harish Garza DO [address] [place] [address] Referring Family Medicine 07/21/22 Jay Phillips MD [address] [place] [address] Primary Staff Physician Cardiology 07/27/23 Leg Man Relationship Specialty Start Date End Date Noa Gauthier DO [address] [place], [place] [phone] PCP - General Internal Medicine 08/01/23 Harish Garza DO [address] [place] [address] Referring Family Medicine 07/21/22 Jay Phillips MD [address] [address] Primary Staff Physician Cardiology 07/27/23 Leg Man Relationship Specialty Start Date End Date Noa Gauthier DO [address] [place] [id number] PCP - General Internal Medicine 08/01/23 Harish Garza DO [address] [place] [address] Referring Family Medicine 07/21/22 Jay Phillips MD [address] [address] Primary Staff Physician Cardiology 07/27/23 Leg Man Relationship Specialty Start Date End Date Noa Gauthier DO [address] [place], [place] [phone] PCP - General Internal Medicine 08/01/23 Harish Garza DO [address] [place] [address] Referring Family Medicine 07/21/22 Jay Phillips MD [address] [place] [phone] Primary Staff Physician Cardiology 07/27/23 Leg Man Relationship Specialty Start Date End Date Noa Gauthier DO [address] [place], [place] [phone] PCP - General Internal Medicine 08/01/23 Harish Garza DO [address] [place] [address] Referring Family Medicine 07/21/22 Jay Phillips MD [address] [address] Primary Staff Physician Cardiology 07/27/23 Leg Man Relationship Specialty Start Date End Date Noa Gauthier DO [address] [place] [address] [id number] PCP - General Internal Medicine 08/01/23 Harish Garza DO [address] [place], [place] [phone] Referring Family Medicine 07/21/22 Jay Phillips MD [address] [place], [place] [phone] Primary Staff Physician Cardiology 07/27/23 Leg Man Relationship Specialty Start Date End Date Noa Gauthier DO [address] [place], [place] [phone] PCP - General Internal Medicine 08/01/23 Harish Garza DO [address] [place] [address] Referring Family Medicine 07/21/22 Jay Phillips MD [address] [place], [place] [phone] Primary Staff Physician Cardiology 07/27/23 Leg Man Relationship Specialty Start Date End Date Noa Gauthier DO [address] [place], [place] [phone] PCP - General Internal Medicine 08/01/23 Harish Garza DO [address] [place], [place] [phone] Referring Family Medicine 07/21/22 Jay Phillips MD [address] [place], [place] [phone] Primary Staff Physician Cardiology 07/27/23 Leg Man Relationship Specialty Start Date End Date Patrickmichelle Noa [address] [place] [id number] PCP - General Internal Medicine 08/01/23 Harish Garza DO [address] [place] [address] Referring Family Medicine 07/21/22 Jay Phillips MD [address] [place] [address] Primary Staff Physician Cardiology 07/27/23 Leg Man Relationship Specialty Start Date End Date AlexandervincentNoa DO [address] [place] [id number] PCP - General Internal Medicine 08/01/23 Harish Garza DO [address] [place], [place] [phone] Referring Family Medicine 07/21/22 Jay Phillips MD [address] [place] [address] Primary Staff Physician Cardiology 07/27/23 Leg Man Relationship Specialty Start Date End Date Noa Gauthier DO [address] [place] [address] 7[address] PCP - General Internal Medicine 08/01/23 Harish Garza DO [address] [place] [address] Referring Family Medicine 07/21/22 Jay Phillips MD [address] [place], [place] [phone] Primary Staff Physician Cardiology 07/27/23 Leg Man Relationship Specialty Start Date End Date Noa Gauthier DO [address] [place] [address] 217[address] PCP - General Internal Medicine 08/01/23 Harish Garza DO [address] [place] [address] Referring Family Medicine 07/21/22 Jay Phillips MD [address] [place] [address] [phone] Primary Staff Physician Cardiology 07/27/23 Leg Man Relationship Specialty Start Date End Date Noa Gauthier DO [address] [place] [address] PCP - General Internal Medicine 08/01/23 Harish Garza DO [address] [place] [address] Referring Family Medicine 07/21/22 Jay Phillips MD [address] [place] [address] Primary Staff Physician Cardiology 07/27/23 Leg Man Relationship Specialty Start Date End Date Noa Gauthier DO [address] [place] [address] PCP - General Internal Medicine 08/01/23 Harish Garza DO [address] [place] [address] Referring Family Medicine 07/21/22 Jay Phillips MD [address] [place], [place] [phone] Primary Staff Physician Cardiology 07/27/23 Leg Man Relationship Specialty Start Date End Date Noa Gauthier DO [address] [place] [address] PCP - General Internal Medicine 08/01/23 Harish Garza DO [address] [place] [address] Referring Family Medicine 07/21/22 Jay Phillips MD [address] [place] [phone] Primary Staff Physician Cardiology 07/27/23 Leg Man Relationship Specialty Start Date End Date Noa Gauthier DO [address] [place] [address] PCP - General Internal Medicine 08/01/23 Harish Garza DO [address] [place] [address] Referring Family Medicine 07/21/22 Jay Phillips MD [address] [address] Primary Staff Physician Cardiology 07/27/23 Leg Man Relationship Specialty Start Date End Date Noa Gauthier DO [address] [place] [address] 9[address] PCP - General Internal Medicine 08/01/23 Harish Garza DO [address] [place] [address] Referring Family Medicine 07/21/22 Jay Phillips MD [address] [place] [address] Primary Staff Physician Cardiology 07/27/23 Leg Man Relationship Specialty Start Date End Date Noa Gauthier DO [address] [place] [address] PCP - General Internal Medicine 08/01/23 Harish Garza DO [address] [place] [address] Referring Family Medicine 07/21/22 Jay Phillips MD [address] [place] [address] Primary Staff Physician Cardiology 07/27/23 Leg Man Relationship Specialty Start Date End Date Noa Gauthier DO [address] [place] [address] PCP - General Internal Medicine 08/01/23 Harish Garza DO [address] [place] [address] Referring Family Medicine 07/21/22 Jay Phillips MD [address] [place], [place] [phone] Primary Staff Physician Cardiology 07/27/23 Leg Man Relationship Specialty Start Date End Date Noa Gauthier DO [address] [place] [address] PCP - General Internal Medicine 08/01/23 Harish Garza DO [address] [place] [address] Referring Family Medicine 07/21/22 Jay Phillips MD [address] [place], [place] [phone] Primary Staff Physician Cardiology 07/27/23 Leg Man Relationship Specialty Start Date End Date Noa Gauthier DO [address] [place], [place] [phone] PCP - General Internal Medicine 08/01/23 Harish Garza DO [address] [place] [address] Referring Family Medicine 07/21/22 Jay Phillips MD [address] [address] Primary Staff Physician Cardiology 07/27/23 Leg Man Relationship Specialty Start Date End Date Noa Gauthier DO [address] [place] [address] PCP - General Internal Medicine 08/01/23 Harish Garza DO [address] [place] [address] Referring Family Medicine 07/21/22 Jay Phillips MD [address] [place] [address] Primary Staff Physician Cardiology 07/27/23 Leg Man Relationship Specialty Start Date End Date Noa Gauthier DO [address] [place] [address] [phone] PCP - General Internal Medicine 08/01/23 Harish Garza DO [address] [place] [address] Referring Family Medicine 07/21/22 Jay Phillips MD [address] [place], [place] [phone] Primary Staff Physician Cardiology 07/27/23 Leg Man Relationship Specialty Start Date End Date Noa Gauthier DO [address] [place] [address] PCP - General Internal Medicine 08/01/23 Harish Garza DO [address] [place] [address] Referring Family Medicine 07/21/22 Jay Phillips MD [address] [phone] Primary Staff Physician Cardiology 07/27/23 Leg Man Relationship Specialty Start Date End Date Noa Gauthier DO [address] [place] [address] PCP - General Internal Medicine 08/01/23 Harish Garza DO [address] [place] [address] Referring Family Medicine 07/21/22 Jay Phillips MD [address] [place] [phone] Primary Staff Physician Cardiology 07/27/23 Leg Man Relationship Specialty Start Date End Date Harish Garza DO [address] [place], [place] [phone] Referring Family Medicine 07/21/22 Leg Man Relationship Specialty Start Date End Date AlexandervincentNoa DO [address] [place] [address] PCP - General Internal Medicine 08/01/23 Harish Garza DO [address] [place], [place] [phone] Referring Family Medicine 07/21/22 Jay Phillips MD [address] [place] [phone] Primary Staff Physician Cardiology 07/27/23 Source Comments (unrecognize d section and content) In the event this informatio n is protected by the Federal Confidentiality of Alcohol and Drug Abuse Patient Records regulations: The Federal rules restrict any use of the information to criminally investigate or prosecute any alcohol or drug abuse patient.[facility] the event this information is protected by the Federal Confidentiality of Alcohol and Drug Abuse Patient Records regulations: The Federal rules restrict any use of the information to criminally investigate or prosecute any alcohol or drug abuse patient.[facility]In the event this information is protected by the Federal Confidentiality of Alcohol and Drug Abuse Patient Records regulations: The Federal rules restrict any use of the information to criminally investigate or prosecute any alcohol or drug abuse patient.[facility]In the event this information is protected by the Federal Confidentiality of Alcohol and Drug Abuse Patient Records regulations: The Federal rules restrict any use of the information to criminally investigate or prosecute any alcohol or drug abuse patient.[facility] HospitalIn the event this information is protected by the Federal Confidentiality of Alcohol and Drug Abuse Patient Records regulations: The Federal rules restrict any use of the information to criminally investigate or prosecute any alcohol or drug abuse patient.[facility] HospitalIn the event this information is protected by the Federal Confidentiality of Alcohol and Drug Abuse Patient Records regulations: The Federal rules restrict any use of the information to criminally investigate or prosecute any alcohol or drug abuse patient.[facility] HospitalIn the event this information is protected by the Federal Confidentiality of Alcohol and Drug Abuse Patient Records regulations: The Federal rules restrict any use of the information to criminally investigate or prosecute any alcohol or drug abuse patient.[facility] HospitalIn the event this information is protected by the Federal Confidentiality of Alcohol and Drug Abuse Patient Records regulations: The Federal rules restrict any use of the information to criminally investigate or prosecute any alcohol or drug abuse patient.[facility] HospitalIn the event this information is protected by the Federal Confidentiality of Alcohol and Drug Abuse Patient Records regulations: The Federal rules restrict any use of the information to criminally investigate or prosecute any alcohol or drug abuse patient.[facility] HospitalIn the event this information is protected by the Federal Confidentiality of Alcohol and Drug Abuse Patient Records regulations: The Federal rules restrict any use of the information to criminally investigate or prosecute any alcohol or drug abuse patient.[facility] HospitalIn the event this information is protected by the Federal Confidentiality of Alcohol and Drug Abuse Patient Records regulations: The Federal rules restrict any use of the information to criminally investigate or prosecute any alcohol or drug abuse patient.[facility] HospitalIn the event this information is protected by the Federal Confidentiality of Alcohol and Drug Abuse Patient Records regulations: The Federal rules restrict any use of the information to criminally investigate or prosecute any alcohol or drug abuse patient.[facility] HospitalIn the event this information is protected by the Federal Confidentiality of Alcohol and Drug Abuse Patient Records regulations: The Federal rules restrict any use of the information to criminally investigate or prosecute any alcohol or drug abuse patient.[facility] HospitalIn the event this information is protected by the Federal Confidentiality of Alcohol and Drug Abuse Patient Records regulations: The Federal rules restrict any use of the information to criminally investigate or prosecute any alcohol or drug abuse patient.[facility] HospitalIn the event this information is protected by the Federal Confidentiality of Alcohol and Drug Abuse Patient Records regulations: The Federal rules restrict any use of the information to criminally investigate or prosecute any alcohol or drug abuse patient.[facility] HospitalIn the event this information is protected by the Federal Confidentiality of Alcohol and Drug Abuse Patient Records regulations: The Federal rules restrict any use of the information to criminally investigate or prosecute any alcohol or drug abuse patient.[facility] HospitalIn the event this information is protected by the Federal Confidentiality of Alcohol and Drug Abuse Patient Records regulations: The Federal rules restrict any use of the information to criminally investigate or prosecute any alcohol or drug abuse patient.[facility] HospitalIn the event this information is protected by the Federal Confidentiality of Alcohol and Drug Abuse Patient Records regulations: The Federal rules restrict any use of the information to criminally investigate or prosecute any alcohol or drug abuse patient.[facility] HospitalIn the event this information is protected by the Federal Confidentiality of Alcohol and Drug Abuse Patient Records regulations: The Federal rules restrict any use of the information to criminally investigate or prosecute any alcohol or drug abuse patient.[facility] HospitalIn the event this information is protected by the Federal Confidentiality of Alcohol and Drug Abuse Patient Records regulations: The Federal rules restrict any use of the information to criminally investigate or prosecute any alcohol or drug abuse patient.[facility] HospitalIn the event this information is protected by the Federal Confidentiality of Alcohol and Drug Abuse Patient Records regulations: The Federal rules restrict any use of the information to criminally investigate or prosecute any alcohol or drug abuse patient.[facility] HospitalIn the event this information is protected by the Federal Confidentiality of Alcohol and Drug Abuse Patient Records regulations: The Federal rules restrict any use of the information to criminally investigate or prosecute any alcohol or drug abuse patient.[facility] HospitalIn the event this information is protected by the Federal Confidentiality of Alcohol and Drug Abuse Patient Records regulations: The Federal rules restrict any use of the information to criminally investigate or prosecute any alcohol or drug abuse patient.[facility] HospitalIn the event this information is protected by the Federal Confidentiality of Alcohol and Drug Abuse Patient Records regulations: The Federal rules restrict any use of the information to criminally investigate or prosecute any alcohol or drug abuse patient.[facility] HospitalIn the event this information is protected by the Federal Confidentiality of Alcohol and Drug Abuse Patient Records regulations: The Federal rules restrict any use of the information to criminally investigate or prosecute any alcohol or drug abuse patient.[facility] HospitalIn the event this information is protected by the Federal Confidentiality of Alcohol and Drug Abuse Patient Records regulations: The Federal rules restrict any use of the information to criminally investigate or prosecute any alcohol or drug abuse patient.[facility] HospitalIn the event this information is protected by the Federal Confidentiality of Alcohol and Drug Abuse Patient Records regulations: The Federal rules restrict any use of the information to criminally investigate or prosecute any alcohol or drug abuse patient.[facility] HospitalIn the event this information is protected by the Federal Confidentiality of Alcohol and Drug Abuse Patient Records regulations: The Federal rules restrict any use of the information to criminally investigate or prosecute any alcohol or drug abuse patient.[facility] HospitalIn the event this information is protected by the Federal Confidentiality of Alcohol and Drug Abuse Patient Records regulations: The Federal rules restrict any use of the information to criminally investigate or prosecute any alcohol or drug abuse patient.[facility] HospitalIn the event this information is protected by the Federal Confidentiality of Alcohol and Drug Abuse Patient Records regulations: The Federal rules restrict any use of the information to criminally investigate or prosecute any alcohol or drug abuse patient.[facility] HospitalIn the event this information is protected by the Federal Confidentiality of Alcohol and Drug Abuse Patient Records regulations: The Federal rules restrict any use of the information to criminally investigate or prosecute any alcohol or drug abuse patient.[facility] HospitalIn the event this information is protected by the Federal Confidentiality of Alcohol and Drug Abuse Patient Records regulations: The Federal rules restrict any use of the information to criminally investigate or prosecute any alcohol or drug abuse patient.[facility] HospitalIn the event this information is protected by the Federal Confidentiality of Alcohol and Drug Abuse Patient Records regulations: The Federal rules restrict any use of the information to criminally investigate or prosecute any alcohol or drug abuse patient.[facility] HospitalIn the event this information is protected by the Federal Confidentiality of Alcohol and Drug Abuse Patient Records regulations: The Federal rules restrict any use of the information to criminally investigate or prosecute any alcohol or drug abuse patient.[facility] HospitalIn the event this information is protected by the Federal Confidentiality of Alcohol and Drug Abuse Patient Records regulations: The Federal rules restrict any use of the information to criminally investigate or prosecute any alcohol or drug abuse patient.[facility] HospitalIn the event this information is protected by the Federal Confidentiality of Alcohol and Drug Abuse Patient Records regulations: The Federal rules restrict any use of the information to criminally investigate or prosecute any alcohol or drug abuse patient.[facility] HospitalIn the event this information is protected by the Federal Confidentiality of Alcohol and Drug Abuse Patient Records regulations: The Federal rules restrict any use of the information to criminally investigate or prosecute any alcohol or drug abuse patient.[facility] HospitalIn the event this information is protected by the Federal Confidentiality of Alcohol and Drug Abuse Patient Records regulations: The Federal rules restrict any use of the information to criminally investigate or prosecute any alcohol or drug abuse patient.[facility] HospitalIn the event this information is protected by the Federal Confidentiality of Alcohol and Drug Abuse Patient Records regulations: The Federal rules restrict any use of the information to criminally investigate or prosecute any alcohol or drug abuse patient.[facility] HospitalIn the event this information is protected by the Federal Confidentiality of Alcohol and Drug Abuse Patient Records regulations: The Federal rules restrict any use of the information to criminally investigate or prosecute any alcohol or drug abuse patient.[facility] HospitalIn the event this information is protected by the Federal Confidentiality of Alcohol and Drug Abuse Patient Records regulations: The Federal rules restrict any use of the information to criminally investigate or prosecute any alcohol or drug abuse patient.[facility] HospitalIn the event this information is protected by the Federal Confidentiality of Alcohol and Drug Abuse Patient Records regulations: The Federal rules restrict any use of the information to criminally investigate or prosecute any alcohol or drug abuse patient.[facility] HospitalIn the event this information is protected by the Federal Confidentiality of Alcohol and Drug Abuse Patient Records regulations: The Federal rules restrict any use of the information to criminally investigate or prosecute any alcohol or drug abuse patient.[facility] HospitalIn the event this information is protected by the Federal Confidentiality of Alcohol and Drug Abuse Patient Records regulations: The Federal rules restrict any use of the information to criminally investigate or prosecute any alcohol or drug abuse patient.[facility] HospitalIn the event this information is protected by the Federal Confidentiality of Alcohol and Drug Abuse Patient Records regulations: The Federal rules restrict any use of the information to criminally investigate or prosecute any alcohol or drug abuse patient.[facility] HospitalIn the event this information is protected by the Federal Confidentiality of Alcohol and Drug Abuse Patient Records regulations: The Federal rules restrict any use of the information to criminally investigate or prosecute any alcohol or drug abuse patient.[facility] HospitalIn the event this information is protected by the Federal Confidentiality of Alcohol and Drug Abuse Patient Records regulations: The Federal rules restrict any use of the information to criminally investigate or prosecute any alcohol or drug abuse patient.[facility] HospitalIn the event this information is protected by the Federal Confidentiality of Alcohol and Drug Abuse Patient Records regulations: The Federal rules restrict any use of the information to criminally investigate or prosecute any alcohol or drug abuse patient.[facility] HospitalIn the event this information is protected by the Federal Confidentiality of Alcohol and Drug Abuse Patient Records regulations: The Federal rules restrict any use of the information to criminally investigate or prosecute any alcohol or drug abuse patient.[facility] HospitalIn the event this information is protected by the Federal Confidentiality of Alcohol and Drug Abuse Patient Records regulations: The Federal rules restrict any use of the information to criminally investigate or prosecute any alcohol or drug abuse patient.[facility]In the event this information is protected by the Federal Confidentiality of Alcohol and Drug Abuse Patient Records regulations: The Federal rules restrict any use of the information to criminally investigate or prosecute any alcohol or drug abuse patient.[facility] HospitalIn the event this information is protected by the Federal Confidentiality of Alcohol and Drug Abuse Patient Records regulations: The Federal rules restrict any use of the information to criminally investigate or prosecute any alcohol or drug abuse patient.[facility] HospitalIn the event this information is protected by the Federal Confidentiality of Alcohol and Drug Abuse Patient Records regulations: The Federal rules restrict any use of the information to criminally investigate or prosecute any alcohol or drug abuse patient.[facility] HospitalIn the event this information is protected by the Federal Confidentiality of Alcohol and Drug Abuse Patient Records regulations: The Federal rules restrict any use of the information to criminally investigate or prosecute any alcohol or drug abuse patient.[facility] HospitalIn the event this information is protected by the Federal Confidentiality of Alcohol and Drug Abuse Patient Records regulations: The Federal rules restrict any use of the information to criminally investigate or prosecute any alcohol or drug abuse patient.[facility] HospitalIn the event this information is protected by the Federal Confidentiality of Alcohol and Drug Abuse Patient Records regulations: The Federal rules restrict any use of the information to criminally investigate or prosecute any alcohol or drug abuse patient.[facility] HospitalIn the event this information is protected by the Federal Confidentiality of Alcohol and Drug Abuse Patient Records regulations: The Federal rules restrict any use of the information to criminally investigate or prosecute any alcohol or drug abuse patient.[facility] HospitalIn the event this information is protected by the Federal Confidentiality of Alcohol and Drug Abuse Patient Records regulations: The Federal rules restrict any use of the information to criminally investigate or prosecute any alcohol or drug abuse patient.[facility] HospitalIn the event this information is protected by the Federal Confidentiality of Alcohol and Drug Abuse Patient Records regulations: The Federal rules restrict any use of the information to criminally investigate or prosecute any alcohol or drug abuse patient.[facility] HospitalIn the event this information is protected by the Federal Confidentiality of Alcohol and Drug Abuse Patient Records regulations: The Federal rules restrict any use of the information to criminally investigate or prosecute any alcohol or drug abuse patient.[facility] HospitalIn the event this information is protected by the Federal Confidentiality of Alcohol and Drug Abuse Patient Records regulations: The Federal rules restrict any use of the information to criminally investigate or prosecute any alcohol or drug abuse patient.[facility] HospitalIn the event this information is protected by the Federal Confidentiality of Alcohol and Drug Abuse Patient Records regulations: The Federal rules restrict any use of the information to criminally investigate or prosecute any alcohol or drug abuse patient.[facility] HospitalIn the event this information is protected by the Federal Confidentiality of Alcohol and Drug Abuse Patient Records regulations: The Federal rules restrict any use of the information to criminally investigate or prosecute any alcohol or drug abuse patient.[facility] HospitalIn the event this information is protected by the Federal Confidentiality of Alcohol and Drug Abuse Patient Records regulations: The Federal rules restrict any use of the information to criminally investigate or prosecute any alcohol or drug abuse patient.[facility] HospitalIn the event this information is protected by the Federal Confidentiality of Alcohol and Drug Abuse Patient Records regulations: The Federal rules restrict any use of the information to criminally investigate or prosecute any alcohol or drug abuse patient.[facility] HospitalIn the event this information is protected by the Federal Confidentiality of Alcohol and Drug Abuse Patient Records regulations: The Federal rules restrict any use of the information to criminally investigate or prosecute any alcohol or drug abuse patient.[facility] HospitalIn the event this information is protected by the Federal Confidentiality of Alcohol and Drug Abuse Patient Records regulations: The Federal rules restrict any use of the information to criminally investigate or prosecute any alcohol or drug abuse patient.[facility] HospitalIn the event this information is protected by the Federal Confidentiality of Alcohol and Drug Abuse Patient Records regulations: The Federal rules restrict any use of the information to criminally investigate or prosecute any alcohol or drug abuse patient.[facility] HospitalIn the event this information is protected by the Federal Confidentiality of Alcohol and Drug Abuse Patient Records regulations: The Federal rules restrict any use of the information to criminally investigate or prosecute any alcohol or drug abuse patient.[facility] HospitalIn the event this information is protected by the Federal Confidentiality of Alcohol and Drug Abuse Patient Records regulations: The Federal rules restrict any use of the information to criminally investigate or prosecute any alcohol or drug abuse patient.[facility] HospitalIn the event this information is protected by the Federal Confidentiality of Alcohol and Drug Abuse Patient Records regulations: The Federal rules restrict any use of the information to criminally investigate or prosecute any alcohol or drug abuse patient.[facility] HospitalIn the event this information is protected by the Federal Confidentiality of Alcohol and Drug Abuse Patient Records regulations: The Federal rules restrict any use of the information to criminally investigate or prosecute any alcohol or drug abuse patient.[facility] HospitalIn the event this information is protected by the Federal Confidentiality of Alcohol and Drug Abuse Patient Records regulations: The Federal rules restrict any use of the information to criminally investigate or prosecute any alcohol or drug abuse patient.[facility] HospitalIn the event this information is protected by the Federal Confidentiality of Alcohol and Drug Abuse Patient Records regulations: The Federal rules restrict any use of the information to criminally investigate or prosecute any alcohol or drug abuse patient.[facility] HospitalIn the event this information is protected by the Federal Confidentiality of Alcohol and Drug Abuse Patient Records regulations: The Federal rules restrict any use of the information to criminally investigate or prosecute any alcohol or drug abuse patient.[facility] HospitalIn the event this information is protected by the Federal Confidentiality of Alcohol and Drug Abuse Patient Records regulations: The Federal rules restrict any use of the information to criminally investigate or prosecute any alcohol or drug abuse patient.[facility] HospitalIn the event this information is protected by the Federal Confidentiality of Alcohol and Drug Abuse Patient Records regulations: The Federal rules restrict any use of the information to criminally investigate or prosecute any alcohol or drug abuse patient.[facility] HospitalIn the event this information is protected by the Federal Confidentiality of Alcohol and Drug Abuse Patient Records regulations: The Federal rules restrict any use of the information to criminally investigate or prosecute any alcohol or drug abuse patient.[facility] HospitalIn the event this information is protected by the Federal Confidentiality of Alcohol and Drug Abuse Patient Records regulations: The Federal rules restrict any use of the information to criminally investigate or prosecute any alcohol or drug abuse patient.[facility] HospitalIn the event this information is protected by the Federal Confidentiality of Alcohol and Drug Abuse Patient Records regulations: The Federal rules restrict any use of the information to criminally investigate or prosecute any alcohol or drug abuse patient.[facility] HospitalIn the event this information is protected by the Federal Confidentiality of Alcohol and Drug Abuse Patient Records regulations: The Federal rules restrict any use of the information to criminally investigate or prosecute any alcohol or drug abuse patient.[facility] HospitalIn the event this information is protected by the Federal Confidentiality of Alcohol and Drug Abuse Patient Records regulations: The Federal rules restrict any use of the information to criminally investigate or prosecute any alcohol or drug abuse patient.[facility] HospitalIn the event this information is protected by the Federal Confidentiality of Alcohol and Drug Abuse Patient Records regulations: The Federal rules restrict any use of the information to criminally investigate or prosecute any alcohol or drug abuse patient.[facility] HospitalIn the event this information is protected by the Federal Confidentiality of Alcohol and Drug Abuse Patient Records regulations: The Federal rules restrict any use of the information to criminally investigate or prosecute any alcohol or drug abuse patient.[facility] HospitalIn the event this information is protected by the Federal Confidentiality of Alcohol and Drug Abuse Patient Records regulations: The Federal rules restrict any use of the information to criminally investigate or prosecute any alcohol or drug abuse patient.[facility] HospitalIn the event this information is protected by the Federal Confidentiality of Alcohol and Drug Abuse Patient Records regulations: The Federal rules restrict any use of the information to criminally investigate or prosecute any alcohol or drug abuse patient.[facility] HospitalIn the event this information is protected by the Federal Confidentiality of Alcohol and Drug Abuse Patient Records regulations: The Federal rules restrict any use of the information to criminally investigate or prosecute any alcohol or drug abuse patient.[facility] HospitalIn the event this information is protected by the Federal Confidentiality of Alcohol and Drug Abuse Patient Records regulations: The Federal rules restrict any use of the information to criminally investigate or prosecute any alcohol or drug abuse patient.[facility] HospitalIn the event this information is protected by the Federal Confidentiality of Alcohol and Drug Abuse Patient Records regulations: The Federal rules restrict any use of the information to criminally investigate or prosecute any alcohol or drug abuse patient.[facility] HospitalIn the event this information is protected by the Federal Confidentiality of Alcohol and Drug Abuse Patient Records regulations: The Federal rules restrict any use of the information to criminally investigate or prosecute any alcohol or drug abuse patient.[facility] HospitalIn the event this information is protected by the Federal Confidentiality of Alcohol and Drug Abuse Patient Records regulations: The Federal rules restrict any use of the information to criminally investigate or prosecute any alcohol or drug abuse patient.[facility] HospitalIn the event this information is protected by the Federal Confidentiality of Alcohol and Drug Abuse Patient Records regulations: The Federal rules restrict any use of the information to criminally investigate or prosecute any alcohol or drug abuse patient.[facility] HospitalIn the event this information is protected by the Federal Confidentiality of Alcohol and Drug Abuse Patient Records regulations: The Federal rules restrict any use of the information to criminally investigate or prosecute any alcohol or drug abuse patient.[facility] HospitalIn the event this information is protected by the Federal Confidentiality of Alcohol and Drug Abuse Patient Records regulations: The Federal rules restrict any use of the information to criminally investigate or prosecute any alcohol or drug abuse patient.[facility] HospitalIn the event this information is protected by the Federal Confidentiality of Alcohol and Drug Abuse Patient Records regulations: The Federal rules restrict any use of the information to criminally investigate or prosecute any alcohol or drug abuse patient.[facility] HospitalIn the event this information is protected by the Federal Confidentiality of Alcohol and Drug Abuse Patient Records regulations: The Federal rules restrict any use of the information to criminally investigate or prosecute any alcohol or drug abuse patient.[facility] HospitalIn the event this information is protected by the Federal Confidentiality of Alcohol and Drug Abuse Patient Records regulations: The Federal rules restrict any use of the information to criminally investigate or prosecute any alcohol or drug abuse patient.[facility] HospitalIn the event this information is protected by the Federal Confidentiality of Alcohol and Drug Abuse Patient Records regulations: The Federal rules restrict any use of the information to criminally investigate or prosecute any alcohol or drug abuse patient.[facility] HospitalIn the event this information is protected by the Federal Confidentiality of Alcohol and Drug Abuse Patient Records regulations: The Federal rules restrict any use of the information to criminally investigate or prosecute any alcohol or drug abuse patient.[facility] HospitalIn the event this information is protected by the Federal Confidentiality of Alcohol and Drug Abuse Patient Records regulations: The Federal rules restrict any use of the information to criminally investigate or prosecute any alcohol or drug abuse patient.[facility] HospitalIn the event this information is protected by the Federal Confidentiality of Alcohol and Drug Abuse Patient Records regulations: The Federal rules restrict any use of the information to criminally investigate or prosecute any alcohol or drug abuse patient.[facility] HospitalIn the event this information is protected by the Federal Confidentiality of Alcohol and Drug Abuse Patient Records regulations: The Federal rules restrict any use of the information to criminally investigate or prosecute any alcohol or drug abuse patient.[facility] HospitalIn the event this information is protected by the Federal Confidentiality of Alcohol and Drug Abuse Patient Records regulations: The Federal rules restrict any use of the information to criminally investigate or prosecute any alcohol or drug abuse patient.[facility] HospitalIn the event this information is protected by the Federal Confidentiality of Alcohol and Drug Abuse Patient Records regulations: The Federal rules restrict any use of the information to criminally investigate or prosecute any alcohol or drug abuse patient.[facility] HospitalIn the event this information is protected by the Federal Confidentiality of Alcohol and Drug Abuse Patient Records regulations: The Federal rules restrict any use of the information to criminally investigate or prosecute any alcohol or drug abuse patient.[facility] HospitalIn the event this information is protected by the Federal Confidentiality of Alcohol and Drug Abuse Patient Records regulations: The Federal rules restrict any use of the information to criminally investigate or prosecute any alcohol or drug abuse patient.[facility] HospitalIn the event this information is protected by the Federal Confidentiality of Alcohol and Drug Abuse Patient Records regulations: The Federal rules restrict any use of the information to criminally investigate or prosecute any alcohol or drug abuse patient.[facility] HospitalIn the event this information is protected by the Federal Confidentiality of Alcohol and Drug Abuse Patient Records regulations: The Federal rules restrict any use of the information to criminally investigate or prosecute any alcohol or drug abuse patient.[facility] HospitalIn the event this information is protected by the Federal Confidentiality of Alcohol and Drug Abuse Patient Records regulations: The Federal rules restrict any use of the information to criminally investigate or prosecute any alcohol or drug abuse patient.[facility] HospitalIn the event this information is protected by the Federal Confidentiality of Alcohol and Drug Abuse Patient Records regulations: The Federal rules restrict any use of the information to criminally investigate or prosecute any alcohol or drug abuse patient.[facility] HospitalIn the event this information is protected by the Federal Confidentiality of Alcohol and Drug Abuse Patient Records regulations: The Federal rules restrict any use of the information to criminally investigate or prosecute any alcohol or drug abuse patient.[facility] HospitalIn the event this information is protected by the Federal Confidentiality of Alcohol and Drug Abuse Patient Records regulations: The Federal rules restrict any use of the information to criminally investigate or prosecute any alcohol or drug abuse patient.[facility] HospitalIn the event this information is protected by the Federal Confidentiality of Alcohol and Drug Abuse Patient Records regulations: The Federal rules restrict any use of the information to criminally investigate or prosecute any alcohol or drug abuse patient.[facility] HospitalIn the event this information is protected by the Federal Confidentiality of Alcohol and Drug Abuse Patient Records regulations: The Federal rules restrict any use of the information to criminally investigate or prosecute any alcohol or drug abuse patient.[facility] HospitalIn the event this information is protected by the Federal Confidentiality of Alcohol and Drug Abuse Patient Records regulations: The Federal rules restrict any use of the information to criminally investigate or prosecute any alcohol or drug abuse patient.[facility] HospitalIn the event this information is protected by the Federal Confidentiality of Alcohol and Drug Abuse Patient Records regulations: The Federal rules restrict any use of the information to criminally investigate or prosecute any alcohol or drug abuse patient.[facility] HospitalIn the event this information is protected by the Federal Confidentiality of Alcohol and Drug Abuse Patient Records regulations: The Federal rules restrict any use of the information to criminally investigate or prosecute any alcohol or drug abuse patient.[facility] HospitalIn the event this information is protected by the Federal Confidentiality of Alcohol and Drug Abuse Patient Records regulations: The Federal rules restrict any use of the information to criminally investigate or prosecute any alcohol or drug abuse patient.[facility] HospitalIn the event this information is protected by the Federal Confidentiality of Alcohol and Drug Abuse Patient Records regulations: The Federal rules restrict any use of the information to criminally investigate or prosecute any alcohol or drug abuse patient.[facility] HospitalIn the event this information is protected by the Federal Confidentiality of Alcohol and Drug Abuse Patient Records regulations: The Federal rules restrict any use of the information to criminally investigate or prosecute any alcohol or drug abuse patient.[facility] HospitalIn the event this information is protected by the Federal Confidentiality of Alcohol and Drug Abuse Patient Records regulations: The Federal rules restrict any use of the information to criminally investigate or prosecute any alcohol or drug abuse patient.[facility] HospitalIn the event this information is protected by the Federal Confidentiality of Alcohol and Drug Abuse Patient Records regulations: The Federal rules restrict any use of the information to criminally investigate or prosecute any alcohol or drug abuse patient.[facility] HospitalIn the event this information is protected by the Federal Confidentiality of Alcohol and Drug Abuse Patient Records regulations: The Federal rules restrict any use of the information to criminally investigate or prosecute any alcohol or drug abuse patient.[facility] HospitalIn the event this information is protected by the Federal Confidentiality of Alcohol and Drug Abuse Patient Records regulations: The Federal rules restrict any use of the information to criminally investigate or prosecute any alcohol or drug abuse patient.[facility] HospitalIn the event this information is protected by the Federal Confidentiality of Alcohol and Drug Abuse Patient Records regulations: The Federal rules restrict any use of the information to criminally investigate or prosecute any alcohol or drug abuse patient.[facility] HospitalIn the event this information is protected by the Federal Confidentiality of Alcohol and Drug Abuse Patient Records regulations: The Federal rules restrict any use of the information to criminally investigate or prosecute any alcohol or drug abuse patient.[facility] HospitalIn the event this information is protected by the Federal Confidentiality of Alcohol and Drug Abuse Patient Records regulations: The Federal rules restrict any use of the information to criminally investigate or prosecute any alcohol or drug abuse patient.[facility] HospitalIn the event this information is protected by the Federal Confidentiality of Alcohol and Drug Abuse Patient Records regulations: The Federal rules restrict any use of the information to criminally investigate or prosecute any alcohol or drug abuse patient.[facility] HospitalIn the event this information is protected by the Federal Confidentiality of Alcohol and Drug Abuse Patient Records regulations: The Federal rules restrict any use of the information to criminally investigate or prosecute any alcohol or drug abuse patient.[facility] HospitalIn the event this information is protected by the Federal Confidentiality of Alcohol and Drug Abuse Patient Records regulations: The Federal rules restrict any use of the information to criminally investigate or prosecute any alcohol or drug abuse patient.[facility] HospitalIn the event this information is protected by the Federal Confidentiality of Alcohol and Drug Abuse Patient Records regulations: The Federal rules restrict any use of the information to criminally investigate or prosecute any alcohol or drug abuse patient.[facility] HospitalIn the event this information is protected by the Federal Confidentiality of Alcohol and Drug Abuse Patient Records regulations: The Federal rules restrict any use of the information to criminally investigate or prosecute any alcohol or drug abuse patient.[facility] HospitalIn the event this information is protected by the Federal Confidentiality of Alcohol and Drug Abuse Patient Records regulations: The Federal rules restrict any use of the information to criminally investigate or prosecute any alcohol or drug abuse patient.[facility] HospitalIn the event this information is protected by the Federal Confidentiality of Alcohol and Drug Abuse Patient Records regulations: The Federal rules restrict any use of the information to criminally investigate or prosecute any alcohol or drug abuse patient.[facility] HospitalIn the event this information is protected by the Federal Confidentiality of Alcohol and Drug Abuse Patient Records regulations: The Federal rules restrict any use of the information to criminally investigate or prosecute any alcohol or drug abuse patient.[facility] HospitalIn the event this information is protected by the Federal Confidentiality of Alcohol and Drug Abuse Patient Records regulations: The Federal rules restrict any use of the information to criminally investigate or prosecute any alcohol or drug abuse patient.[facility] HospitalIn the event this information is protected by the Federal Confidentiality of Alcohol and Drug Abuse Patient Records regulations: The Federal rules restrict any use of the information to criminally investigate or prosecute any alcohol or drug abuse patient.[facility] HospitalIn the event this information is protected by the Federal Confidentiality of Alcohol and Drug Abuse Patient Records regulations: The Federal rules restrict any use of the information to criminally investigate or prosecute any alcohol or drug abuse patient.[facility] HospitalIn the event this information is protected by the Federal Confidentiality of Alcohol and Drug Abuse Patient Records regulations: The Federal rules restrict any use of the information to criminally investigate or prosecute any alcohol or drug abuse patient.[facility] HospitalIn the event this information is protected by the Federal Confidentiality of Alcohol and Drug Abuse Patient Records regulations: The Federal rules restrict any use of the information to criminally investigate or prosecute any alcohol or drug abuse patient.[facility] HospitalIn the event this information is protected by the Federal Confidentiality of Alcohol and Drug Abuse Patient Records regulations: The Federal rules restrict any use of the information to criminally investigate or prosecute any alcohol or drug abuse patient.[facility] HospitalIn the event this information is protected by the Federal Confidentiality of Alcohol and Drug Abuse Patient Records regulations: The Federal rules restrict any use of the information to criminally investigate or prosecute any alcohol or drug abuse patient.[facility] HospitalIn the event this information is protected by the Federal Confidentiality of Alcohol and Drug Abuse Patient Records regulations: The Federal rules restrict any use of the information to criminally investigate or prosecute any alcohol or drug abuse patient.[facility] HospitalIn the event this information is protected by the Federal Confidentiality of Alcohol and Drug Abuse Patient Records regulations: The Federal rules restrict any use of the information to criminally investigate or prosecute any alcohol or drug abuse patient.[facility] HospitalIn the event this information is protected by the Federal Confidentiality of Alcohol and Drug Abuse Patient Records regulations: The Federal rules restrict any use of the information to criminally investigate or prosecute any alcohol or drug abuse patient.[facility] HospitalIn the event this information is protected by the Federal Confidentiality of Alcohol and Drug Abuse Patient Records regulations: The Federal rules restrict any use of the information to criminally investigate or prosecute any alcohol or drug abuse patient.[facility] HospitalIn the event this information is protected by the Federal Confidentiality of Alcohol and Drug Abuse Patient Records regulations: The Federal rules restrict any use of the information to criminally investigate or prosecute any alcohol or drug abuse patient.[facility] HospitalIn the event this information is protected by the Federal Confidentiality of Alcohol and Drug Abuse Patient Records regulations: The Federal rules restrict any use of the information to criminally investigate or prosecute any alcohol or drug abuse patient.[facility] HospitalIn the event this information is protected by the Federal Confidentiality of Alcohol and Drug Abuse Patient Records regulations: The Federal rules restrict any use of the information to criminally investigate or prosecute any alcohol or drug abuse patient.[facility] HospitalIn the event this information is protected by the Federal Confidentiality of Alcohol and Drug Abuse Patient Records regulations: The Federal rules restrict any use of the information to criminally investigate or prosecute any alcohol or drug abuse patient.[facility] HospitalIn the event this information is protected by the Federal Confidentiality of Alcohol and Drug Abuse Patient Records regulations: The Federal rules restrict any use of the information to criminally investigate or prosecute any alcohol or drug abuse patient.[facility] HospitalIn the event this information is protected by the Federal Confidentiality of Alcohol and Drug Abuse Patient Records regulations: The Federal rules restrict any use of the information to criminally investigate or prosecute any alcohol or drug abuse patient.[facility] HospitalIn the event this information is protected by the Federal Confidentiality of Alcohol and Drug Abuse Patient Records regulations: The Federal rules restrict any use of the information to criminally investigate or prosecute any alcohol or drug abuse patient.[facility] HospitalIn the event this information is protected by the Federal Confidentiality of Alcohol and Drug Abuse Patient Records regulations: The Federal rules restrict any use of the information to criminally investigate or prosecute any alcohol or drug abuse patient.[facility] HospitalIn the event this information is protected by the Federal Confidentiality of Alcohol and Drug Abuse Patient Records regulations: The Federal rules restrict any use of the information to criminally investigate or prosecute any alcohol or drug abuse patient.[facility] HospitalIn the event this information is protected by the Federal Confidentiality of Alcohol and Drug Abuse Patient Records regulations: The Federal rules restrict any use of the information to criminally investigate or prosecute any alcohol or drug abuse patient.[facility] HospitalIn the event this information is protected by the Federal Confidentiality of Alcohol and Drug Abuse Patient Records regulations: The Federal rules restrict any use of the information to criminally investigate or prosecute any alcohol or drug abuse patient.[facility] HospitalIn the event this information is protected by the Federal Confidentiality of Alcohol and Drug Abuse Patient Records regulations: The Federal rules restrict any use of the information to criminally investigate or prosecute any alcohol or drug abuse patient.[facility] HospitalIn the event this information is protected by the Federal Confidentiality of Alcohol and Drug Abuse Patient Records regulations: The Federal rules restrict any use of the information to criminally investigate or prosecute any alcohol or drug abuse patient.[facility] HospitalIn the event this information is protected by the Federal Confidentiality of Alcohol and Drug Abuse Patient Records regulations: The Federal rules restrict any use of the information to criminally investigate or prosecute any alcohol or drug abuse patient.[facility] HospitalIn the event this information is protected by the Federal Confidentiality of Alcohol and Drug Abuse Patient Records regulations: The Federal rules restrict any use of the information to criminally investigate or prosecute any alcohol or drug abuse patient.[facility] HospitalIn the event this information is protected by the Federal Confidentiality of Alcohol and Drug Abuse Patient Records regulations: The Federal rules restrict any use of the information to criminally investigate or prosecute any alcohol or drug abuse patient.[facility] HospitalIn the event this information is protected by the Federal Confidentiality of Alcohol and Drug Abuse Patient Records regulations: The Federal rules restrict any use of the information to criminally investigate or prosecute any alcohol or drug abuse patient.[facility] HospitalIn the event this information is protected by the Federal Confidentiality of Alcohol and Drug Abuse Patient Records regulations: The Federal rules restrict any use of the information to criminally investigate or prosecute any alcohol or drug abuse patient.[facility] HospitalIn the event this information is protected by the Federal Confidentiality of Alcohol and Drug Abuse Patient Records regulations: The Federal rules restrict any use of the information to criminally investigate or prosecute any alcohol or drug abuse patient.[facility] HospitalIn the event this information is protected by the Federal Confidentiality of Alcohol and Drug Abuse Patient Records regulations: The Federal rules restrict any use of the information to criminally investigate or prosecute any alcohol or drug abuse patient.[facility] HospitalIn the event this information is protected by the Federal Confidentiality of Alcohol and Drug Abuse Patient Records regulations: The Federal rules restrict any use of the information to criminally investigate or prosecute any alcohol or drug abuse patient.[facility] HospitalIn the event this information is protected by the Federal Confidentiality of Alcohol and Drug Abuse Patient Records regulations: The Federal rules restrict any use of the information to criminally investigate or prosecute any alcohol or drug abuse patient.[facility] HospitalIn the event this information is protected by the Federal Confidentiality of Alcohol and Drug Abuse Patient Records regulations: The Federal rules restrict any use of the information to criminally investigate or prosecute any alcohol or drug abuse patient.[facility] HospitalIn the event this information is protected by the Federal Confidentiality of Alcohol and Drug Abuse Patient Records regulations: The Federal rules restrict any use of the information to criminally investigate or prosecute any alcohol or drug abuse patient.[facility] HospitalIn the event this information is protected by the Federal Confidentiality of Alcohol and Drug Abuse Patient Records regulations: The Federal rules restrict any use of the information to criminally investigate or prosecute any alcohol or drug abuse patient.[facility] HospitalIn the event this information is protected by the Federal Confidentiality of Alcohol and Drug Abuse Patient Records regulations: The Federal rules restrict any use of the information to criminally investigate or prosecute any alcohol or drug abuse patient.[facility] HospitalIn the event this information is protected by the Federal Confidentiality of Alcohol and Drug Abuse Patient Records regulations: The Federal rules restrict any use of the information to criminally investigate or prosecute any alcohol or drug abuse patient.[facility] HospitalIn the event this information is protected by the Federal Confidentiality of Alcohol and Drug Abuse Patient Records regulations: The Federal rules restrict any use of the information to criminally investigate or prosecute any alcohol or drug abuse patient.[facility] HospitalIn the event this information is protected by the Federal Confidentiality of Alcohol and Drug Abuse Patient Records regulations: The Federal rules restrict any use of the information to criminally investigate or prosecute any alcohol or drug abuse patient.[facility] HospitalIn the event this information is protected by the Federal Confidentiality of Alcohol and Drug Abuse Patient Records regulations: The Federal rules restrict any use of the information to criminally investigate or prosecute any alcohol or drug abuse patient.[facility] HospitalIn the event this information is protected by the Federal Confidentiality of Alcohol and Drug Abuse Patient Records regulations: The Federal rules restrict any use of the information to criminally investigate or prosecute any alcohol or drug abuse patient.[facility] HospitalIn the event this information is protected by the Federal Confidentiality of Alcohol and Drug Abuse Patient Records regulations: The Federal rules restrict any use of the information to criminally investigate or prosecute any alcohol or drug abuse patient.[facility] Inactive Administered Medications - up to 3 most recent administrations Administered Medications (un recognized section and content) Medication Order MAR Action Action Date Dose Rate Site onabotulinum toxin type A 155 Units injection (BOTOX) 155 Units, INTRAMUSCULAR, ONCE, 1 dose, On 09/25/23 at 1000, This record documents the total [...] BE BASED ON THE PRIMARY CLINICAL RECORDS. [employer] provides no warranty or guarantee of the accuracy or completeness of information in this document.
--- NOTE | 2024-03-10 10:05 | XR_ITS ---
The [address] [address] Patient Name: SABRINA ELIZABETH MRN: [id number] date: 1990 Sex: F Assigned Patient Location: ER Current Patient Location: ER Accession/Order Number: [id number] Exam Date: 03/10/2024 10:50 Report Date: 03/10/2024 11:27 At the request of: JOSE MARLOW Procedure: XR chest 1V EXAM: XR chest 1V HISTORY: Chest pain. COMPARISON: Portable chest radiograph dated 08/02/2023. TECHNIQUE: AP erect portable chest radiograph performed. FINDINGS: The trachea is midline. The heart size is normal. The cardiomediastinal silhouette and hilar shadows are within normal limits. There is no consolidation, pleural effusion or pulmonary vascular congestion. There is no pneumothorax or osseous abnormality. XR/XR chest 1V IMPRESSION: Unremarkable AP erect portable chest radiograph. Electronically authenticated by: BRIEN JIANG Date: 03/10/2024 11:27
--- NOTE | 2024-03-10 10:05 | ECG_ITS ---
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
--- NOTE | 2024-03-10 10:05 | ED_ITS ---
HPI - Chest Pain General Chief Complaint: Chest Pain Stated Complaint: CHEST PAIN Time Seen by Provider: 03/10/24 09:45 Source: patient Mode of arrival: walk-in History of Present Illness HPI narrative: 33-year-old female presents to the emergency department for chest pain. She states she thinks she had a heart attack at 1 AM. She states she had some pain in her chest and it went to her neck and then eventually it went away and then s he woke up today but she still had a little bit of pain in the chest just to the left of midline. No fever cough or injury. She has never had heart disease previously. Related Data Home Medications ?Medication ?Instructions ?Recorded ?Confirmed cyanocobalamin (vitamin B-12) 1,000 mcg IM .monthly 12/12/23 12/12/23 1,000 mcg/mL injection solution cyclobenzaprine 10 mg tablet 10 mg PO Q8H 12/12/23 12/12/23 diclofenac potassium 50 mg tablet 50 mg PO DAILY PRN pain 12/12/23 12/12/23 duloxetine 60 mg capsule,delayed 60 mg PO DAILY 12/12/23 12/12/23 release ergocalciferol (vitamin D2) 1,250 1,250 mcg PO DAILY 12/12/23 12/12/23 mcg (50,000 unit) capsule ferrous sulfate 325 mg (65 mg 325 mg PO DAILY 12/12/23 12/12/23 iron) tablet (FeroSul) gabapentin 600 mg tablet 600 mg PO BID 12/12/23 12/12/23 methocarbamol 500 mg tablet 500 mg PO DAILY PRN pain 12/12/23 12/12/23 naratriptan 2.5 mg tablet 2.5 mg PO Q4H 12/12/23 12/12/23 ondansetron HCl 4 mg tablet 4 mg PO Q6H PRN nausea and vomiting 12/12/23 12/12/23 pantoprazole 40 mg tablet,delayed 40 mg PO DAILY 12/12/23 12/12/23 release polyethylene glycol 3350 17 17 g PO DAILY PRN constipation 12/12/23 12/12/23 gram/dose oral powder (Miralax) prazosin 1 mg capsule 1 mg PO DAILY PRN PTSD 12/12/23 12/12/23 prednisone 20 mg tablet 20 mg PO DAILY 12/12/23 12/12/23 Allergies Allergy/AdvReac Type Severity Reaction Status Date / Time metoclopramide [From Reglan] AdvReac Severe Anxiety Verified 12/12/23 19:51 Review of Systems ROS Narrative A ten point review of systems is negative except as noted above. [facility] Social History (Updated 12/19/23 @ 23:07 by Miri Lantigua MD) Smoking status: Former smoker Little interest or pleasure in doing things: not at all Feeling down, depressed, or hopeless: not at all Exam Narrative Exam Narrative: Nurses note and vital signs reviewed and patient is not hypoxic. General: The patient appears well and in no apparent distress. Patient is resting comfortably on cart. Skin: Warm, dry, no pallor noted. There is no rash noted. Head: Normocephalic, atraumatic Eye: Normal conjunctiva, no drainage Ears, Nose, Mouth, and Throat: oral mucosa is moist. Nares patent. Cardiovascular: Regular Rate and Rhythm Respiratory: Patient is in no distress, no accessory muscle use, lungs are clear to auscultation, no wheezing, rales or rhonchi Back: non-tender GI: Soft and nontender Musculoskeletal: The patient has no evidence of calf tenderness, no pitting edema, symmetrical pulses noted bilaterally Neurological: A&O, normal speech Psychiatric: Cooperative Constitutional Vital Signs, click to edit/add: Last Vital Signs Temp 98 F 03/10/24 09:51 Pulse 84 03/10/24 11:00 Resp 13 03/10/24 11:00 BP 127/91 03/10/24 11:00 Pulse Ox 97 03/10/24 11:00 O2 Del Method Room Air 03/10/24 09:51 Course Vital Signs Vital signs: Vital Signs Temperature 98 F 03/10/24 09:51 Pulse Rate 88 03/10/24 09:51 Respiratory Rate 20 03/10/24 09:51 Blood Pressure 142/108 H 03/10/24 09:51 Pulse Oximetry 100 03/10/24 09:51 Oxygen Delivery Method Room Air 03/10/24 09:51 Temperature 98 F 03/10/24 09:51 Pulse Rate 84 03/10/24 11:00 Respiratory Rate 13 03/10/24 11:00 Blood Pressure 127/91 03/10/24 11:00 Pulse Oximetry 97 03/10/24 11:00 Oxygen Delivery Method Room Air 03/10/24 09:51 MDM - Chest Pain MDM Narrative Medical decision making narrative: Her workup including chest x-ray and troponin is negative. Her vital signs are normal and she has had no dysrhythmias. There is no indication for admission to the hospital at this point and this was discussed with her thoroughly. She will be discharged home and will follow-up with her established forensic anthropologist in [place]. After discussing the case with her she came out to the nurses station and in a loud voice was talking about my personal life and stating that she hates coming to this hospital. Differential Diagnosis Differential diagnosis: Likely pneumothorax, stable angina, unstable angina pectoris, st elevation myocardial infarction, costochondritis and chest pain Lab Data Attestation: I reviewed the patient's lab results. Labs: Lab Results 03/10/24 Range/Units 10:34 WBC 8.3 (4.0-11.0) 10^3/uL RBC 4.96 (4.20-5.40) 10^6/uL Hgb 14.7 (12.0-16.0) g/dL Hct 44.8 (36.0-48.0) % MCV 90.3 (81.0-99.0) fL MCH 29.6 (26.7-34.0) pg MCHC 32.8 (29.9-35.2) g/dL RDW 13.9 (11.0-15.0) % Plt Count 347 (150-450) 10^3/uL MPV 10.1 (9.5-13.5) fL Neut % (Auto) 60.1 (43.0-75.0) % Lymph % (Auto) 31.8 (20.5-60.0) % [place] % (Auto) 5.6 (1.7-12.0) % Eos % (Auto) 1.8 (0.9-7.0) % Baso % (Auto) 0.5 (0.2-2.0) % Neut # (Auto) 5.0 (1.4-6.5) 10^3/uL Lymph # (Auto) 2.7 (1.2-3.8) 10^3/uL [place] # (Auto) 0.5 (0.3-0.8) 10^3/uL Eos # (Auto) 0.2 (0.0-0.7) 10^3/uL Baso # (Auto) 0.0 (0.0-0.1) 10^3/uL Abs Immat Gran (auto) 0.02 (0.00-0.03) 10^3/uL Imm/Tot Granulo (auto) 0.2 (0.0-0.5) % Sodium 136 (136-145) mmol/L Potassium 3.7 (3.5-5.1) mmol/L Chloride 101 (98-107) mmol/L Carbon Dioxide 27.1 (21.0-32.0) mmol/L Anion Gap 11.6 BUN 10.0 (7.0-18.0) mg/dL Creatinine 0.88 (0.55-1.02) mg/dL Est GFR ( Amer) >60 (>=60) Est GFR (Non-Af Amer) >60 (>=60) BUN/Creatinine Ratio 11.4 Glucose 83 (74-106) mg/dL Calcium 9.0 (8.5-10.1) mg/dL Troponin I High Sens <4.0 L (4.0-51.3) pg/mL Imaging Data Chest x-ray: Radiologist's impression: ITS Impressions Chest X-Ray 03/10/24 10:05 IMPRESSION: Unremarkable AP erect portable chest radiograph. Electronically authenticated by: BRIEN JIANG Date: 03/10/2024 11:27 ECG Data Attestation: I personally reviewed and interpreted this ECG as follows: (EKG on my interpretation shows normal sinus rhythm with no acute changes.) Heart Score History: Slightly/Non-Suspicious ECG: Normal Age: <45 years Risk Factors: No Risk Factors Troponin: <Normal Limit Total Heart Score Recommendations & Risks:: 0 Discharge Plan Discharge Chief Complaint: Chest Pain Clinical Impression: Chest pain Patient Disposition: Home, Self-Care Time of Disposition Decision: 11:34 Condition: Good Mode of Transportation: Private Vehicle Prescriptions / Home Meds: No Action cyanocobalamin (vitamin B-12) 1,000 mcg/mL solution 1,000 mcg IM .monthly cyclobenzaprine 10 mg tablet 10 mg PO Q8H diclofenac potassium 50 mg tablet 50 mg PO DAILY PRN (Reason: pain) duloxetine 60 mg capsule,delayed release(DR/EC) 60 mg PO DAILY ergocalciferol (vitamin D2) 1,250 mcg (50,000 unit) capsule 1,250 mcg PO DAILY ferrous sulfate [FeroSul] 325 mg (65 mg iron) tablet 325 mg PO DAILY gabapentin 600 mg tablet 600 mg PO BID methocarbamol 500 mg tablet 500 mg PO DAILY PRN (Reason: pain) naratriptan 2.5 mg tablet 2.5 mg PO Q4H ondansetron HCl 4 mg tablet 4 mg PO Q6H PRN (Reason: nausea and vomiting) pantoprazole 40 mg tablet,delayed release (DR/EC) 40 mg PO DAILY polyethylene glycol 3350 [Miralax] 17 gram/dose powder 17 g PO DAILY PRN (Reason: constipation) prazosin 1 mg capsule 1 mg PO DAILY PRN (Reason: PTSD) prednisone 20 mg tablet 20 mg PO DAILY Rx Instructions: as directed Print Language: Latvian Instructions: Chest Pain (ED) Additional Instructions: Follow-up with your forensic anthropologist. Contact their office tomorrow. Referrals: Physician,Non-Staff, MD [Primary Care Provider] - 1 week
[2024-03-10 10:53] LABS: Basophils Percent Auto 0.5 % (0.2-2.0); Eosinophils Absolute Auto 0.2 10^3/uL (0.0-0.7); Eosinophils Percent Auto 1.8 % (0.9-7.0); Hematocrit 44.8 % (36.0-48.0); Hemoglobin 14.7 g/dL (12.0-16.0); Immature Granulocytes Abs Auto 0.02 10^3/uL (0.00-0.03); Immature Granulocytes Pct Auto 0.2 % (0.0-0.5); Lymphocytes Absolute Auto 2.7 10^3/uL (1.2-3.8); Lymphocytes Percent Auto 31.8 % (20.5-60.0); Mean Corpuscular HGB Conc 32.8 g/dL (29.9-35.2); Mean Corpuscular Hemoglobin 29.6 pg (26.7-34.0); Mean Corpuscular Volume 90.3 fL (81.0-99.0); Mean Platelet Volume 10.1 fL (9.5-13.5); Monocytes Absolute Auto 0.5 10^3/uL (0.3-0.8); Monocytes Percent Auto 5.6 % (1.7-12.0); Neutrophils Percent Auto 60.1 % (43.0-75.0); Platelet Count 347 10^3/uL (150-450); Red Blood Count 4.96 10^6/uL (4.20-5.40); Red Cell Distribution Width 13.9 % (11.0-15.0); White Blood Count 8.3 10^3/uL (4.0-11.0)
[2024-03-10 11:08] LABS: Anion Gap 11.6; BUN Creatinine Ratio 11.4; Carbon Dioxide 27.1 mmol/L (21.0-32.0); Chloride 101 mmol/L (98-107); Estimated GFR (African America >60 (>=60); Estimated GFR (Non-African Ame >60 (>=60); Glucose 83 mg/dL (74-106); Potassium 3.7 mmol/L (3.5-5.1); Sodium 136 mmol/L (136-145); Troponin I High Sensitivity <4.0 pg/mL (4.0-51.3)
== END 2024-03-10 11:45 | disposition home or self-care (01) ==
PROVIDERS: Emergency Provider Emergency Medicine
DX: R07.9 Chest pain, unspecified (principal); Z87.891 Personal history of nicotine dependence
CPT/HCPCS: 36415; 71045; 80048; 84484; 85025; 93005; 99285